=== PATIENT | male | born 1985 | race Caucasian/White ===

== ENCOUNTER 2020-06-08 00:18 | Inpatient (IN) | payer MEDICARE, MEDICAID ==
[~2020-06-08] VITALS: Ht 183 cm; Wt 175.0 kg
--- NOTE | 2020-06-08 00:21 | NUR ---
RESPIRITORY THERAPY CALLED TO ROOM. 0025 VAPOTHERM ORDERED
[2020-06-08] MEDS ORDERED: MONT10TA97 PO (00:40)
[2020-06-08] MEDS ORDERED: DULA0.75 SQ (00:40)
[2020-06-08] MEDS ORDERED: PIOG30TA71 PO (00:40)
[2020-06-08] MEDS ORDERED: ROSU20TA32 PO (00:40)
[2020-06-08] MEDS ORDERED: DULO60CA59 PO (00:40)
[2020-06-08] MEDS ORDERED: HYDR50TA3 PO (00:40)
[2020-06-08] MEDS ORDERED: BREX0.5T PO (00:40)
[2020-06-08] MEDS ORDERED: AZITHROMYCIN (00:40)
[2020-06-08] MEDS ORDERED: GEMF600T8 PO (00:40)
[2020-06-08] MEDS ORDERED: METO50TA15 PO (00:40)
[2020-06-08] MEDS ORDERED: ALBUTEROL (00:40)
[2020-06-08] MEDS ORDERED: NS IV 1000 ML 1,000 ML IV STA (00:45)
--- NOTE | 2020-06-08 00:54 | ED Respiratory ---
General Chief Complaint: Respiratory Problems Stated Complaint: COVID+,SOB Nursing Triage Note: brought in by [facility] increased soa, low spo2. dx covid + 06/03/20 History of Present Illness Date Seen by Provider: Jun 08, 2020 Time Seen by Provider: 00:30 Initial Comments Patient is a 34-year-old male who presents to the emergency department today with a chief complaint of shortness of breath. Patient states that he was diagnosed with coronavirus on June 03. He started having symptoms about 3 days prior. Complaints of a change in taste but not loss of taste. Patient states that today he just became more short of breath with persistent cough and decided to call the ambulance. EMS reports that the patient's oxygen saturations were 75% on room air on their arrival. Patient also endorses fever, chills and body aches. He denies nausea, upset stomach or diarrhea. No problems with urination. Patient states that he has been taking antibiotics but no steroids. He does have a history of hypertension, hyperlipidemia and diabetes and depression. He is a non-smoker. All other review of systems reviewed and negative except as stated. Timing/Duration: this evening Severity: severe Prior Episodes/Possible Cause: illness exposure Modifying Factors: Improves With Albuterol Inhaler Associated Symptoms: cough, shortness of breath Allergies and Home Medications Allergies Coded Allergies: No Known Drug Allergies (Unverified , 06/08/20) Home Medications Acetaminophen 500 Mg Tablet, 1,000 MG PO Q8H PRN for PAIN-MILD (1-4) OR TEMPATURE, (Reported) Albuterol Sulfate 6.7 Gm Hfa.aer.ad, 2 PUFF INH Q4H PRN for SHORTNESS OF BREATH, (Reported) Azithromycin 250 Mg Tablet, 250 MG PO DAILY, (Reported) FILLED 06-03-2120 #6/5 DAY SUPPLY Brexpiprazole 0.5 Mg Tablet, 0.5 MG PO DAILY, (Reported) Canagliflozin/Metformin HCl 1 Each Tab.bp.24h, 2 EACH PO DAILY, (Reported) Dulaglutide 0.75 Mg/0.5 Ml Pen.injctr, 0.75 MG SQ FRI, (Reported) Duloxetine HCl 60 Mg Capsule.dr, 120 MG PO DAILY, (Reported) TAKES 2 (60MG) CAPS Gemfibrozil 600 Mg Tablet, 600 MG PO BID, (Reported) Hydrochlorothiazide 50 Mg Tablet, 50 MG PO DAILY, (Reported) Metoprolol Tartrate 50 Mg Tablet, 50 MG PO BID, (Reported) Montelukast Sodium 10 Mg Tablet, 10 MG PO DAILY, (Reported) Multivitamin 1 Each Tablet, 1 EACH PO DAILY, (Reported) Pioglitazone HCl 30 Mg Tablet, 30 MG PO DAILY, (Reported) Rosuvastatin Calcium 20 Mg Tablet, 20 MG PO DAILY, (Reported) Patient Home Medication List Home Medication List Reviewed: Yes Review of Systems Review of Systems Constitutional: see HPI EENTM: no symptoms reported Respiratory: cough, short of breath Cardiovascular: no symptoms reported Gastrointestinal: no symptoms reported Genitourinary: no symptoms reported Musculoskeletal: no symptoms reported Skin: no symptoms reported Psychiatric/Neurological: No Symptoms Reported Hematologic/Lymphatic: No Symptoms Reported Past Dllxgfw-Evunsk-Tsxkgv Hx Patient Social History Alcohol Use: Denies Use Recreational Drug Use: No Smoking Status: Never a Smoker 2nd Hand Smoke Exposure: No Recent Foreign Travel: No Contact w/Someone Who Travel: No Recent Infectious Disease Expo: No Recent Hopitalizations: No Immunizations Up To Date Tetanus Booster (TDap): Unknown Seasonal Allergies Seasonal Allergies: No Past Medical History Surgeries: Yes (dental) Respiratory: No Cardiac: Yes High Cholesterol, Hypertension Neurological: No Genitourinary: No Gastrointestinal: No Musculoskeletal: No Endocrine: Yes Diabetes, Insulin dep HEENT: No Cancer: No Psychosocial: Yes Depression Integumentary: No Blood Disorders: No Physical Exam Vital Signs - First Documented 06/08/20 06/08/20 00:25 00:37 Temp 38.1 Pulse 116 Resp 18 B/P (MAP) 134/82 (99) Pulse Ox 90 O2 Delivery Non Rebreather O2 Flow Rate 15.00 FiO2 75 Capillary Refill : Less Than 3 Seconds Height: 6'0.00" Weight: 360lbs. 0.0oz. 163.642782xe; 47.00 BMI Method: General Appearance: WD/WN, no apparent distress Eyes: Bilateral Eye Normal Inspection, Bilateral Eye PERRL, Bilateral Eye EOMI HEENT: normal ENT inspection, pharynx normal Neck: full range of motion, supple Respiratory: lungs clear, normal breath sounds, no accessory muscle use, other (Tachypnea) Cardiovascular: regular rate, rhythm, no murmur, tachycardia Gastrointestinal: normal bowel sounds, non tender, soft Focused Exam Lactate Level 06/08/20 00:30: Lactic Acid Level 2.87*H Lactic Acid Level Laboratory Tests Test 06/08/20 00:30 Lactic Acid Level 2.87 MMOL/L (0.50-2.00) *H Progress/Results/Core Measures Suspected Sepsis Recent Fever Within 48 Hours: Yes Infection Criteria Present: Documented Infection New/Unexplained Altered Menta: No Sepsis Screen: Possible Sepsis Risk Within 3hrs of presentation: Admin fluids, Blood cultures prior to ABX's, Lactate level SIRS Temperature: Pulse: 116 Respiratory Rate: 18 Blood Pressure 134 /82 Mean: 99 06/08/20 00:30: Lactic Acid Level 2.87*H Laboratory Tests 06/08/20 00:30: Total Bilirubin 0.7 Results/Orders Lab Results Laboratory Tests Test 06/08/20 00:30 06/08/20 01:00 Range/Units White Blood Count 11.0 4.3-11.0 10^3/uL Red Blood Count 5.38 4.30-5.52 10^6/uL Hemoglobin 15.4 13.3-17.7 g/dL Hematocrit 44 40-54 % Mean Corpuscular Volume 81 80-99 fL Mean Corpuscular Hemoglobin 29 25-34 pg Mean Corpuscular Hemoglobin Concent 35 32-36 g/dL Red Cell Distribution Width 12.7 10.0-14.5 % Platelet Count 218 130-400 10^3/uL Mean Platelet Volume 9.9 9.0-12.2 fL Immature Granulocyte % (Auto) 1 % Neutrophils (%) (Auto) 84 H 42-75 % Lymphocytes (%) (Auto) 10 L 12-44 % Monocytes (%) (Auto) 5 0-12 % Eosinophils (%) (Auto) 0 0-10 % Basophils (%) (Auto) 0 0-10 % Neutrophils # (Auto) 9.2 H 1.8-7.8 10^3/uL Lymphocytes # (Auto) 1.1 1.0-4.0 10^3/uL Monocytes # (Auto) 0.6 0.0-1.0 10^3/uL Eosinophils # (Auto) 0.0 0.0-0.3 10^3/uL Basophils # (Auto) 0.0 0.0-0.1 10^3/uL Immature Granulocyte # (Auto) 0.1 0.0-0.1 10^3/uL D-Dimer 1.10 H 0.00-0.49 UG/ML Sodium Level 130 L 135-145 MMOL/L Potassium Level 3.3 L 3.6-5.0 MMOL/L Chloride Level 88 L 98-107 MMOL/L Carbon Dioxide Level 18 L 21-32 MMOL/L Anion Gap 24 H 5-14 MMOL/L Blood Urea Nitrogen 12 7-18 MG/DL Creatinine 0.83 0.60-1.30 MG/DL Estimat Glomerular Filtration Rate > 60 BUN/Creatinine Ratio 14 Glucose Level 141 H 70-105 MG/DL Lactic Acid Level 2.87 *H 0.50-2.00 MMOL/L Calcium Level 8.7 8.5-10.1 MG/DL Corrected Calcium 9.0 8.5-10.1 MG/DL Total Bilirubin 0.7 0.1-1.0 MG/DL Aspartate Amino Transf (AST/SGOT) 71 H 5-34 U/L Alanine Aminotransferase (ALT/SGPT) 36 0-55 U/L Alkaline Phosphatase 70 40-136 U/L C-Reactive Protein High Sensitivity 23.54 H 0.00-0.50 MG/DL Total Protein 7.6 6.4-8.2 GM/DL Albumin 3.6 3.2-4.5 GM/DL Procalcitonin 0.10 H <0.10 NG/ML Blood Gas Puncture Site RR Blood Gas Patient Temperature 100.4 Arterial Blood pH 7.50 H 7.37-7.43 Arterial Blood Partial Pressure CO2 35 35-45 MMHG Arterial Blood Partial Pressure O2 97 H 79-93 MMHG Arterial Blood HCO3 27 23-27 MMOL/L Arterial Blood Total CO2 27.7 21.0-31.0 MMOL/L Arterial Blood Oxygen Saturation 98 94-100 % Arterial Blood Base Excess 3.8 H -2.5-2.5 MMOL/L Reyes Test YES-POS Blood Gas Ventilator Setting NO Blood Gas Inspired Oxygen 40% Micro Results Microbiology 06/08/20 Blood Culture - Preliminary, Resulted No growth 06/08/20 Blood Culture - Preliminary, Resulted No growth My Orders Orders - SYEDA GUEVARA MD Ed Iv/Invasive Line Start (06/08/20 00:40) Chest 1 View, Ap/Pa Only (06/08/20 00:40) Cbc With Automated Diff (06/08/20 00:40) Comprehensive Metabolic Panel (06/08/20 00:40) Fibrin Degradation Products (06/08/20 00:40) Hs C Reactive Protein (06/08/20 00:40) Procalcitonin (Pct) (06/08/20 00:40) Blood Culture (06/08/20 00:40) Lactic Acid Analyzer (06/08/20 00:40) Ed Iv/Invasive Line Start (06/08/20 00:45) Ns Iv 1000 Ml (Sodium Chloride 0.9%) (06/08/20 00:45) Vapotherm - Admin Rt Rfs (06/08/20 00:45) Arterial Blood Gas (06/08/20 01:03) Dexamethasone Injection (Decadron Inje (06/08/20 01:21) Vital Signs/I&O 06/08/20 06/08/20 00:25 00:37 Temp 38.1 Pulse 116 Resp 18 B/P (MAP) 134/82 (99) Pulse Ox 90 92 O2 Delivery Non Rebreather Vapotherm O2 Flow Rate 15.00 40.00 FiO2 75 Capillary Refill : Less Than 3 Seconds Blood Pressure Mean: 99 Progress Note : Time: 01:55 Progress Note I have reevaluated the patient. He is breathing more comfortably on Vapotherm. He is satting 100% at the moment on 40 L at 75%. His respiratory rate is about 22. He is still a little bit tachycardic with a heart rate of 112. Blood pressure is good. Patient's labs have been reviewed. He does have a mildly elevated lactic acid of 2.87. His CRP is elevated his procalcitonin is 0.1. Patient has a normal white count. His electrolytes are mostly within normal limits with a slightly low potassium at 3.3. Patient's chest x-ray is reviewed and shows diffuse patchy bilateral infiltrates consistent with coronavirus pneumonia. Patient has been given IV Decadron 6 mg here in the emergency department. Will be admitted with orders for convalescent plasma. Case has been discussed with Dr. Perez at this time. She accepts the patient for inpatient admission. Diagnostic Imaging Diagonstic Imaging: Xray Plain Films/CT/US/NM/MRI: chest Comments Bilateral infiltrates on chest x-ray Critical Care Note Critical Care Start Time: 00:30 Stop Time: 01:58 Total Time (minutes) Critical care time 40 minutes in the evaluation and management of this patient with coronavirus pneumonia and hypoxemia. Patient management of hypoxia with Vapotherm. Multiple reevaluations. Review of the medical record. Interpretation and management of laboratory studies. Discussion with admitting physician. Departure Communication (Admissions) Time/Spoke to Admitting Phy: 01:[address] Perez who accepts the patient for inpatient admission Impression Primary Impression: Pneumonia due to 2019 novel coronavirus Additional Impression: Hypoxia Disposition: ADMITTED INPATIENT Condition: Stable Admissions Decision to Admit Reason: Admit from ER (General) Decision to Admit/Date: Jun 08, 2020 Time/Decision to Admit Time: 01:57 Departure-Patient Inst. Referrals: JOÃO CHRISTOPHER DO (PCP) Primary Care Physician RONNA DEGROOT (Family) Primary Care Physician Copy Copies To 1: JOÃO CHRISTOPHER KATHRYN M MD Jun 08, 2020 00:54
[2020-06-08 00:55] LABS: BASOPHILS % (AUTO) 0 % (0-10); EOSINOPHILS % (AUTO) 0 % (0-10); HEMATOCRIT 44 % (40-54); HEMOGLOBIN 15.4 g/dL (13.3-17.7); LYMPHOCYTES # (AUTO) 1.1 10^3/uL (1.0-4.0); LYMPHOCYTES % (AUTO) 10 % (12-44); MEAN CORPUSCULAR HEMOGLOBIN 29 pg (25-34); MEAN CORPUSCULAR HGB CONC 35 g/dL (32-36); MEAN CORPUSCULAR VOLUME 81 fL (80-99); MEAN PLATELET VOLUME 9.9 fL (9.0-12.2); MONOCYTES # (AUTO) 0.6 10^3/uL (0.0-1.0); MONOCYTES % (AUTO) 5 % (0-12); NEUTROPHILS # (AUTO) 9.2 10^3/uL (1.8-7.8); NEUTROPHILS % (AUTO) 84 % (42-75); PLATELET COUNT 218 10^3/uL (130-400)
[2020-06-08 00:59] LABS: ALBUMIN 3.6 GM/DL (3.2-4.5); CHLORIDE 88 MMOL/L (98-107); POTASSIUM 3.3 MMOL/L (3.6-5.0); SODIUM 130 MMOL/L (135-145)
[2020-06-08 01:00] LABS: CALCIUM 8.7 MG/DL (8.5-10.1)
[2020-06-08 01:01] LABS: GLUCOSE 141 MG/DL (70-105); TOTAL PROTEIN 7.6 GM/DL (6.4-8.2)
[2020-06-08 01:02] LABS: CARBON DIOXIDE 18 MMOL/L (21-32)
[2020-06-08 01:03] LABS: BILIRUBIN,TOTAL 0.7 MG/DL (0.1-1.0)
[2020-06-08 01:05] LABS: ALKALINE PHOSPHATASE 70 U/L (40-136); CREATININE SERUM 0.83 MG/DL (0.60-1.30); GFR ESTIMATED > 60
[2020-06-08 01:06] LABS: BUN/CREATININE RATIO 14
[2020-06-08 01:08] LABS: ALANINE AMINOTRANSFERASE 36 U/L (0-55)
[2020-06-08 01:14] LABS: ABG BASE EXCESS 3.8 MMOL/L (-2.5-2.5); ABG OXYGEN SATURATION 98 % (94-100); ABG PCO2 35 MMHG (35-45); ABG PO2 97 MMHG (79-93); ABG TCO2 27.7 MMOL/L (21.0-31.0)
[2020-06-08 01:15] LABS: ALLENS TEST YES-POS; INSPIRED O2 40%; PATIENT TEMP 100.4; VENTILATOR NO
--- NOTE | 2020-06-08 04:04 | NUR ---
JESSE JON admitted to room CU9-1, with an admitting diagnosis of COVID,Pneumonia, on 06/08/20 from [facility] ED via stretcher, accompanied by Staff.JESSE JON introduced to surroundings, call light, bed controls, phone, TV, temperature control, lights, meal times, smoking policy, visitor policy, side rail policy, bathrooms and showers. Patient Rights given to patient in the handbook. JESSE JON verbalizes understanding that [facility] is not responsible for the loss or damage to any personal effects or valuables that are kept in the patients possession during their hospitalization. The following Patient Care Plans were discussed with the patient: Discharge Planning, pain,activity, and room orienation. JESSE JON verbalizes understanding of Interdisciplinary Patient Education. Patient and/or family were informed about the Rapid Response Team and its purpose.
--- NOTE | 2020-06-08 04:56 | Pulmonary Consultation ---
History of Present Illness History of Present Illness Date Seen by Provider: Jun 08, 2020 Time Seen by Provider: 04:51 Date of Admission History of Present Illness 34yo with hx of morbid obesity, DM, HTN presented to ED seocondary to worsening SOB. Pt was dx with COVID 1/2 . Symptoms started 3 days prior to admission. Pt was found to be hypoxic per EMS. Pt was admitted to ICU for critical care tx. He does not smoke. No prior hx like this in the past. I am consulted for ICU management. Allergies and Home Medications Allergies Coded Allergies: No Known Drug Allergies (Unverified , 06/08/20) Home Medications Acetaminophen 500 Mg Tablet, 1,000 MG PO Q8H PRN for PAIN-MILD (1-4) OR TEMPATURE, (Reported) Albuterol Sulfate 6.7 Gm Hfa.aer.ad, 2 PUFF INH Q4H PRN for SHORTNESS OF BREATH, (Reported) Azithromycin 250 Mg Tablet, 250 MG PO DAILY, (Reported) FILLED 06-03-2120 #6/5 DAY SUPPLY Brexpiprazole 0.5 Mg Tablet, 0.5 MG PO DAILY, (Reported) Canagliflozin/Metformin HCl 1 Each Tab.bp.24h, 2 EACH PO DAILY, (Reported) Dulaglutide 0.75 Mg/0.5 Ml Pen.injctr, 0.75 MG SQ FRI, (Reported) Duloxetine HCl 60 Mg Capsule.dr, 120 MG PO DAILY, (Reported) TAKES 2 (60MG) CAPS Gemfibrozil 600 Mg Tablet, 600 MG PO BID, (Reported) Hydrochlorothiazide 50 Mg Tablet, 50 MG PO DAILY, (Reported) Metoprolol Tartrate 50 Mg Tablet, 50 MG PO BID, (Reported) Montelukast Sodium 10 Mg Tablet, 10 MG PO DAILY, (Reported) Multivitamin 1 Each Tablet, 1 EACH PO DAILY, (Reported) Pioglitazone HCl 30 Mg Tablet, 30 MG PO DAILY, (Reported) Rosuvastatin Calcium 20 Mg Tablet, 20 MG PO DAILY, (Reported) Past Sxoiiyl-Vjkpcz-Leycjp Hx Patient Social History Alcohol Use: Denies Use Recreational Drug Use: No Smoking Status: Never a Smoker 2nd Hand Smoke Exposure: No Recent Foreign Travel: No Contact w/Someone Who Travel: No Recent Infectious Disease Expo: No Recent Hopitalizations: No Physical Abuse: No Sexual Abuse: No Mistreated: No Fear: No Immunizations Up To Date Tetanus Booster (TDap): Unknown Date of Influenza Vaccine: Mar 23, 2020 Seasonal Allergies Seasonal Allergies: No Past Medical History Surgeries: Yes (dental) Respiratory: No Cardiac: Yes High Cholesterol, Hypertension Neurological: No Genitourinary: No Gastrointestinal: No Musculoskeletal: No Endocrine: Yes Diabetes, Insulin dep HEENT: No Cancer: No Psychosocial: Yes Depression Integumentary: No Blood Disorders: No Review of Systems Time Seen by Provider: 05:00 Sepsis Event Evaluation Height, Weight, BMI Height: 6'0.00" Weight: 360lbs. 0.0oz. 163.211765sg; 46.28 BMI Method: Exam Exam Vital Signs Date Time Temp Pulse Resp B/P (MAP) Pulse Ox O2 Delivery O2 Flow Rate FiO2 06/08/20 04:29 Vapotherm 40.00 75 06/08/20 04:11 38.4 107 16 133/94 (107) 94 Vapotherm 40.00 75.00 06/08/20 03:51 116 18 134/82 (99) 90 Vapotherm 40.00 06/08/20 00:25 38.1 116 18 134/82 (99) 90 Non Rebreather 15.00 I & O 06/08/20 07:00 Intake Total 1000 ml Balance 1000 ml Height & Weight Height: 6'0.00" Weight: 360lbs. 0.0oz. 163.916481ng; 46.28 BMI Method: General Appearance: Anxious, Moderate Distress, Obese HEENT: PERRL/EOMI, Pharynx Normal Neck: Full Range of Motion, Supple Respiratory: Accessory Muscle Use, Crackles, Decreased Breath Sounds Cardiovascular: Regular Rate, Rhythm Capillary Refill: Less Than 3 Seconds Gastrointestinal: normal bowel sounds, non tender, soft Extremity: Normal Capillary Refill, Normal Inspection Neurologic/Psychiatric: Alert Skin: Normal Color Lymphatic: No Adenopathy Results Lab Laboratory Tests 06/08/20 00:30 Assessment/Plan Assessment/Plan COVID with pneumonia -oxygen Vapotherm 75% -Decadron -CVP -Proning -callejas cultures pending -Check UA -Pt does not qualify for Remdesivir Acute DKA -Start DKA protocol Hypokalemia, hypophos -Replace -monitor Hyponatremia -monitor NAT BRIGHT DO Jun 08, 2020 04:56
[2020-06-08] MEDS ORDERED: LACTATED RINGERS 1,000 ML IV SCH ×2 (05:00→19:00)
[2020-06-08] MEDS ORDERED: FAMOTIDINE 20 MG (PEPCID) TABLET PO PRN (05:00)
[2020-06-08] MEDS ORDERED: NS (IVPB) 100 ML ONE (05:11)
[2020-06-08] MEDS ORDERED: PIPERACILLIN/TAZO 4.5 GM VIAL (ZOSYN) IV ONE (05:11)
[2020-06-08] MEDS ORDERED: PIPERACILLIN/TAZOBACTAM 4.5 GM in NS (IVPB) 100 ML IV ONE (05:15)
[2020-06-08] MEDS: POTASSIUM CL 10MEQ/50ML IVPB 50 ML IV SCH ×2 (05:28→15:47)
[2020-06-08] MEDS: dexAMETHasone 6 MG TAB (DECADRON) PO SCH (05:28)
[2020-06-08] MEDS: KCL 20 MEQ TAB (K-DUR) PO SCH (05:28)
[2020-06-08] MEDS: MAGNESIUM 1 GM/100 ML IVPB 100 ML IV SCH (05:28)
[2020-06-08] MEDS: IBUPROFEN TABLET 200 MG TAB PO PRN (05:40)
[2020-06-08 05:56] LABS: BASOPHILS % (AUTO) 0 % (0-10); EOSINOPHILS % (AUTO) 0 % (0-10); HEMATOCRIT 40 % (40-54); HEMOGLOBIN 14.1 g/dL (13.3-17.7); LYMPHOCYTES # (AUTO) 0.6 10^3/uL (1.0-4.0); LYMPHOCYTES % (AUTO) 5 % (12-44); MEAN CORPUSCULAR HEMOGLOBIN 29 pg (25-34); MEAN CORPUSCULAR HGB CONC 36 g/dL (32-36); MEAN CORPUSCULAR VOLUME 81 fL (80-99); MEAN PLATELET VOLUME 9.6 fL (9.0-12.2); MONOCYTES # (AUTO) 0.5 10^3/uL (0.0-1.0); MONOCYTES % (AUTO) 5 % (0-12); NEUTROPHILS # (AUTO) 9.5 10^3/uL (1.8-7.8); NEUTROPHILS % (AUTO) 89 % (42-75); PLATELET COUNT 205 10^3/uL (130-400); WHITE BLOOD COUNT 10.6 10^3/uL (4.3-11.0)
[2020-06-08 06:00] LABS: ALBUMIN 3.4 GM/DL (3.2-4.5); CHLORIDE 89 MMOL/L (98-107); POTASSIUM 2.9 MMOL/L (3.6-5.0); SODIUM 129 MMOL/L (135-145)
[2020-06-08 06:02] LABS: CALCIUM 8.1 MG/DL (8.5-10.1)
[2020-06-08 06:03] LABS: GLUCOSE 156 MG/DL (70-105); TOTAL PROTEIN 6.7 GM/DL (6.4-8.2)
[2020-06-08 06:04] LABS: CARBON DIOXIDE 19 MMOL/L (21-32)
[2020-06-08 06:05] LABS: BILIRUBIN,TOTAL 0.7 MG/DL (0.1-1.0)
[2020-06-08 06:07] LABS: ALKALINE PHOSPHATASE 63 U/L (40-136); GFR ESTIMATED > 60
[2020-06-08 06:08] LABS: BUN/CREATININE RATIO 14
[2020-06-08 06:09] LABS: SALICYLATE < 5.0 MG/DL (5.0-20.0)
[2020-06-08 06:10] LABS: ALANINE AMINOTRANSFERASE 32 U/L (0-55); MAGNESIUM 2.1 MG/DL (1.6-2.4)
[2020-06-08 06:23] LABS: PROTHROMBIN TIME PATIENT 13.5 SEC (12.2-14.7)
[2020-06-08 06:24] LABS: BAND NEUTROPHILS 2 %; BASOPHILS % (MANUAL) 0 %; EOSINOPHILS % (MANUAL) 0 %; LYMPHOCYTES % (MANUAL) 8 %; MONOCYTES % (MANUAL) 6 %; NEUTROPHILS % (MANUAL) 84 %; RBC MORPH NORMAL
[2020-06-08 06:26] LABS: ACETAMINOPHEN < 10 UG/ML (10-30)
[2020-06-08] MEDS: inSUlin ASPART (NovoLOG) 1 UNIT/0.01 ML (CHARGE PER UNIT) SC SCH ×4 (07:18→20:00)
--- NOTE | 2020-06-08 07:20 | Diagnostic Imaging Report ---
EXAMINATION: Chest 1 view HISTORY: Shortness of breath. COVID positive. COMPARISON: None available. FINDINGS: Patchy opacities are seen throughout the mid and lower lungs bilaterally. No large pleural effusion or pneumothorax is seen. The cardiomediastinal silhouette is normal in size and contour. No acute osseous abnormality is seen. IMPRESSION: 1. Patchy opacities in the mid and lower lungs bilaterally, consistent with history of COVID infection. Dictated by: Dictated on workstation # [id number]
[2020-06-08] MEDS ORDERED: KCL 20 MEQ TAB (K-DUR) PO ONE (08:00)
[2020-06-08] MEDS: FAMOTIDINE 20 MG (PEPCID) TABLET PO SCH ×2 (08:09→20:01)
[2020-06-08] MEDS: ENOXAPARIN 40 MG/0.4 ML (LOVENOX) SYR SC SCH ×2 (08:09→20:00)
[2020-06-08 08:11] LABS: CLARITY,URINE CLEAR; COLOR,URINE DARK YELLOW; GLUCOSE, URINE (UA) 2+ (NEGATIVE); KETONES,URINE 3+ (NEGATIVE); LEUKOCYTE ESTERASE ,URINE NEGATIVE (NEGATIVE); NITRITE,URINE NEGATIVE (NEGATIVE); PH,URINE 6.5 (5-9); PROTEIN,URINE 2+ (NEGATIVE)
[2020-06-08 08:20] LABS: BACTERIA,URINE TRACE /HPF; BILIRUBIN,URINE 1+ (NEGATIVE); RBC,URINE 0-2 /HPF
[2020-06-08] MEDS ORDERED: POTASSIUM PHOSPHATE INJ 30 MM in NS (IVPB) 250 ML IV ONE (09:00)
[2020-06-08 09:54] VITALS: BP 134/82
[2020-06-08 10:27] VITALS: BP 134/82
--- NOTE | 2020-06-08 11:41 | NUR ---
DR BRIGHT CALLED NEW ORDERS RECEIVED, SEE ORDER HX
[2020-06-08] MEDS ORDERED: KCL 20 MEQ TAB (K-DUR) PO NR ×2 (11:45→17:30)
[2020-06-08] MEDS: PIPERACILLIN/TAZOBACTAM (BULK) 4.5 GM in NS (IVPB) 100 ML IV SCH ×2 (12:06→20:09)
[2020-06-08] MEDS ORDERED: AZIT250T12 PO (12:13)
[2020-06-08] MEDS ORDERED: RT-ALBUINH INH (12:13)
[2020-06-08] MEDS ORDERED: CANA1TAB8 PO (12:13)
[2020-06-08] MEDS ORDERED: ACET-2267 PO (12:13)
[2020-06-08] MEDS ORDERED: MULT-1136 PO (12:13)
--- NOTE | 2020-06-08 12:16 | NUR ---
SPOKE WITH THE PT (CALLED THE ROOM PHONE), WENT THRU THE EXT MED HISTORY, AND CALLED [facility] TO COMPLETE THE MED REC ON 05-01-2020 [facility] FILLED INVOKAMET XR 150/1000MG #60/30DS AND ROSUVASTATIN 20MG #30/30DS- THESE ARE NOT SHOWN ON THE EXT MED HISTORY WHEN I CALLED THE PT HE WAS NOT ABLE TO NAME HIS MEDICATIONS, BUT WHEN I LISTED MEDS FROM THE EXT MED HISTORY HE WAS ABLE TO TELL ME HOW/WHEN HE TAKES EACH (THIS IS ALSO WHEN THE PT MENTIONED INVOKAMET), OTC MEDS: TYLENOL MTV
[2020-06-08 12:51] LABS: BUN/CREATININE RATIO 19; CALCIUM 8.3 MG/DL (8.5-10.1); CARBON DIOXIDE 26 MMOL/L (21-32); CHLORIDE 93 MMOL/L (98-107); CREATININE SERUM 0.72 MG/DL (0.60-1.30); GFR ESTIMATED > 60; GLUCOSE 169 MG/DL (70-105); MAGNESIUM 2.6 MG/DL (1.6-2.4); PHOSPHORUS 3.3 MG/DL (2.3-4.7); POTASSIUM 3.4 MMOL/L (3.6-5.0); SODIUM 134 MMOL/L (135-145)
[2020-06-08 13:21] LABS: AMPHETAMINE SCREEN, URINE NEGATIVE (NEGATIVE); BARBITURATE SCREEN URINE NEGATIVE (NEGATIVE); BENZODIAZEPINES SCREEN URINE NEGATIVE (NEGATIVE); CANNABINOID SCREEN, URINE NEGATIVE (NEGATIVE); COCAINE SCREEN URINE NEGATIVE (NEGATIVE); METHADONE STAT NEGATIVE (NEGATIVE); METHAMPHETAMINE SCREEN URINE S NEGATIVE (NEGATIVE); OPIATE SCREEN URINE NEGATIVE (NEGATIVE); OXYCODONE STAT NEGATIVE (NEGATIVE); PROPOXYPHENE STAT NEGATIVE (NEGATIVE); TRICYCLIC ANTIDEPRESSANTS SCRE NEGATIVE (NEGATIVE)
[2020-06-08] MEDS: [UNRECOGNIZED DRUG - MIXTURE] IV SCH ×4 (13:25→17:44)
[2020-06-08] MEDS ORDERED: NS IV 500 ML 500 ML ONE (13:51)
[2020-06-08] MEDS: RT-ALBUTEROL INHALER HFA (VENTOLIN HFA) 18 GM IH SCH ×3 (14:38→21:38)
--- NOTE | 2020-06-08 15:03 | NUR ---
1130 UPDATED MOM ON PT. PASSWORD VERIFIED.
[2020-06-08 16:09] LABS: CHLORIDE 95 MMOL/L (98-107); POTASSIUM 3.4 MMOL/L (3.6-5.0); SODIUM 134 MMOL/L (135-145)
[2020-06-08 16:10] LABS: CALCIUM 8.1 MG/DL (8.5-10.1)
[2020-06-08 16:11] LABS: GLUCOSE 200 MG/DL (70-105)
[2020-06-08 16:12] LABS: CARBON DIOXIDE 25 MMOL/L (21-32)
[2020-06-08 16:15] LABS: BUN/CREATININE RATIO 18; CREATININE SERUM 0.72 MG/DL (0.60-1.30); GFR ESTIMATED > 60
--- NOTE | 2020-06-08 16:51 | NUR ---
DR BRIGHT NOTIFIED OF LATEST LAB RESULTS, ORDERS RECEIVED TO GIVE 10 UNITS LEVEMIR AND D/C INSULIN DRIP 2 HOURS P LEVEMIR. CHANGE IVF TO LR AT 75ML/HR AFTER D/C INSULIN DRIP.
--- NOTE | 2020-06-08 17:01 | NUR ---
CM/SS: Visited with mother of pt via phone as per social service consult - based on concerns she has for services for pt at time of discharge. Plan: Undetermined at this time. Pt lives alone in an apartment locally and will likely return there at the conclusion of his hospital stay. Summary: Mother reports pt is autistic higher functioning. He has disability and is on Medicare and Medicaid. She just reports he has alot of on line relationships, and but not many friends . Pt does not like change and he does receive services at the clinic. She has asked this worker to follow up and see if there are other things he could benefit from. This worker will follow up.
--- NOTE | 2020-06-08 17:13 | NUR ---
CM/SS: Visit with pt (via phone due to COVID +) as per Social Service Consult related to concerns for services from mother at time of discharge. Plan: Pt is from home and lives alone and will likely return there. Summary: Pt reports doing ok and could not identify any additional services needed at this time. This worker introduced herself to pt, and will follow up with him closer to the time of discharge. Pt was ok with that. This worker will follow up.
[2020-06-08 17:17] VITALS: BP 116/86
[2020-06-08] MEDS: POTASSIUM CHLORIDE INJ 20 MEQ in D5 LR IV SOLUTION 1,000 ML IV SCH (19:30)
[2020-06-09] MEDS: inSUlin ASPART (NovoLOG) 1 UNIT/0.01 ML (CHARGE PER UNIT) SC SCH ×7 (00:11→23:04)
[2020-06-09] MEDS: RT-ALBUTEROL INHALER HFA (VENTOLIN HFA) 18 GM IH SCH ×6 (01:04→21:53)
[2020-06-09] MEDS: PIPERACILLIN/TAZOBACTAM (BULK) 4.5 GM in NS (IVPB) 100 ML IV SCH ×3 (02:34→19:17)
[2020-06-09 02:56] LABS: BASOPHILS % (AUTO) 0 % (0-10); EOSINOPHILS % (AUTO) 0 % (0-10); HEMATOCRIT 34 % (40-54); HEMOGLOBIN 11.9 g/dL (13.3-17.7); LYMPHOCYTES # (AUTO) 1.1 10^3/uL (1.0-4.0); LYMPHOCYTES % (AUTO) 9 % (12-44); MEAN CORPUSCULAR HEMOGLOBIN 29 pg (25-34); MEAN CORPUSCULAR HGB CONC 35 g/dL (32-36); MEAN CORPUSCULAR VOLUME 83 fL (80-99); MEAN PLATELET VOLUME 9.4 fL (9.0-12.2); MONOCYTES # (AUTO) 0.6 10^3/uL (0.0-1.0); MONOCYTES % (AUTO) 5 % (0-12); NEUTROPHILS # (AUTO) 10.1 10^3/uL (1.8-7.8); NEUTROPHILS % (AUTO) 84 % (42-75); PLATELET COUNT 235 10^3/uL (130-400); WHITE BLOOD COUNT 11.9 10^3/uL (4.3-11.0)
[2020-06-09 03:05] LABS: CHLORIDE 101 MMOL/L (98-107); POTASSIUM 3.3 MMOL/L (3.6-5.0); SODIUM 137 MMOL/L (135-145)
[2020-06-09 03:06] LABS: CALCIUM 7.6 MG/DL (8.5-10.1)
[2020-06-09 03:07] LABS: GLUCOSE 118 MG/DL (70-105)
[2020-06-09 03:08] LABS: CARBON DIOXIDE 21 MMOL/L (21-32)
[2020-06-09 03:10] LABS: CREATININE SERUM 0.58 MG/DL (0.60-1.30); GFR ESTIMATED > 60
[2020-06-09 03:11] LABS: BUN/CREATININE RATIO 14
[2020-06-09 03:13] LABS: MAGNESIUM 1.8 MG/DL (1.6-2.4)
[2020-06-09 03:25] LABS: PHOSPHORUS 0.7 MG/DL (2.3-4.7)
[2020-06-09] MEDS: POTASSIUM CHLORIDE INJ 20 MEQ in D5 LR IV SOLUTION 1,000 ML IV SCH (04:25)
--- NOTE | 2020-06-09 04:25 | Diagnostic Imaging Report ---
Indication: Shortness of breath Portable chest 2:21 AM There are patchy consolidating infiltrates scattered throughout both lungs. Right upper extremity PICC line tip projects over the SVC. There are no effusions or pneumothoraces. IMPRESSION: Patchy consolidating alveolar infiltrates in both lungs appear worse compared to the previous day's exam. Dictated by: Dictated on workstation # [id number]
--- NOTE | 2020-06-09 04:46 | Pulmonary Progress Note ---
Subjective Time Seen by a Provider: 04:46 Sepsis Event Evaluation Height, Weight, BMI Height: 6'0.00" Weight: 360lbs. 0.0oz. 163.010580bl; 46.28 BMI Method: Focused Exam Lactate Level 06/08/20 00:30: Lactic Acid Level 2.87*H 06/08/20 02:55: Lactic Acid Level 1.56 06/08/20 05:28: Lactic Acid Level 1.14 Exam Exam Vital Signs Date Time Temp Pulse Resp B/P (MAP) Pulse Ox O2 Delivery O2 Flow Rate FiO2 06/09/20 01:04 Vapotherm 40.00 70 06/09/20 01:00 109 23 106/63 (77) 90 Vapotherm 40.00 80.00 06/09/20 00:50 95 06/09/20 00:00 112 24 94 Vapotherm 40.00 80.00 06/08/20 23:32 37.1 06/08/20 23:00 111 28 95 Vapotherm 40.00 80.00 06/08/20 22:00 117 15 87 Vapotherm 40.00 80.00 06/08/20 21:38 Vapotherm 40.00 80 06/08/20 21:34 37.2 98 24 92 Vapotherm 40.00 80.00 06/08/20 21:00 112 24 124/75 (91) 88 Vapotherm 40.00 75.00 06/08/20 20:05 Vapotherm 40.00 50 06/08/20 20:00 94 Vapotherm 40.00 80 06/08/20 20:00 107 25 116/63 (69) 94 Vapotherm 40.00 75.00 06/08/20 19:14 36.2 06/08/20 19:00 95 06/08/20 19:00 98 22 117/72 (86) 94 Vapotherm 40.00 75.00 06/08/20 18:00 100 28 116/73 (87) 91 Vapotherm 40.00 75.00 06/08/20 17:17 36.4 98 36.0 36.8 06/08/20 17:00 82 24 126/75 (92) 90 Vapotherm 40.00 75.00 06/08/20 16:00 91 32 88/45 (59) 90 Vapotherm 40.00 75.00 06/08/20 15:45 36.4 06/08/20 15:00 91 25 117/79 (92) 91 Vapotherm 40.00 75.00 06/08/20 14:38 91 Vapotherm 40.00 75 06/08/20 14:00 93 25 114/72 (86) 92 Vapotherm 40.00 75.00 06/08/20 13:00 84 19 123/65 (84) 94 Vapotherm 40.00 75.00 06/08/20 12:49 87 06/08/20 12:00 85 25 98/88 (91) 91 Vapotherm 40.00 75.00 06/08/20 11:28 37.0 06/08/20 11:00 92 20 112/69 (83) 90 Vapotherm 40.00 75.00 06/08/20 10:27 93 Vapotherm 40.00 75 06/08/20 10:27 38.1 116 90 06/08/20 10:00 90 18 119/76 (90) 93 Vapotherm 40.00 75.00 06/08/20 09:54 38.1 116 90 100 06/08/20 09:00 94 25 97/75 (82) 95 Vapotherm 40.00 75.00 06/08/20 08:08 37.8 06/08/20 08:00 98 18 92/54 (67) 91 Vapotherm 40.00 75.00 06/08/20 08:00 95 Vapotherm 40.00 100 06/08/20 07:36 37.3 06/08/20 07:00 101 12 84/59 (67) 93 Vapotherm 40.00 75.00 06/08/20 07:00 101 06/08/20 06:34 38.3 06/08/20 06:30 112 22 122/66 (78) 87 Vapotherm 40.00 75.00 06/08/20 06:15 105 19 122/76 (91) 94 Vapotherm 40.00 75.00 06/08/20 06:00 110 15 129/76 (95) 91 Vapotherm 40.00 75.00 06/08/20 05:45 108 24 118/76 (91) 93 Vapotherm 40.00 75.00 06/08/20 05:40 22 91 Vapotherm 40.00 75.00 06/08/20 05:40 38.8 06/08/20 05:36 38.6 06/08/20 05:30 112 23 121/77 (95) 93 Vapotherm 40.00 75.00 06/08/20 05:00 108 38 132/85 (97) 93 Vapotherm 40.00 75.00 06/08/20 04:45 109 14 127/73 (90) 93 Vapotherm 40.00 75.00 I & O 06/09/20 06:59 Intake Total 1440 ml Output Total 2250 ml Balance -810 ml Height & Weight Height: 6'0.00" Weight: 360lbs. 0.0oz. 163.476337rj; 46.28 BMI Method: General Appearance: Mild Distress HEENT: PERRL/EOMI, Pharynx Normal Neck: Full Range of Motion, Normal Inspection, Non Tender, Supple Respiratory: Accessory Muscle Use, Crackles, Decreased Breath Sounds Cardiovascular: Regular Rate, Rhythm, No Gallop, No Murmur, Normal Peripheral Pulses Capillary Refill: Less Than 3 Seconds Gastrointestinal: normal bowel sounds, non tender, soft Extremity: Normal Capillary Refill, Normal Inspection, No Pedal Edema Neurologic/Psychiatric: Alert Skin: Normal Color, Warm/Dry Results Lab Laboratory Tests 06/08/20 00:30 06/08/20 05:28 06/08/20 12:21 06/08/20 15:45 06/09/20 02:43 Assessment/Plan Assessment/Plan COVID with pneumonia -oxygen Vapotherm 75% -SL IVF -Decadron -CVP -Proning -callejas cultures pending -Pt does not qualify for Remdesivir DM s/p Acute DKA -SSI -10 units of Levemir -Hold home PO diabetic meds Leukocytosis - currently on Zosyn -Continue to monitor -Recheck PCT Hypokalemia, hypophos -Replace -monitor Lethargy -- improved Hyponatremia -monitor Morbid obesity DVT/GI ppx -ortega Elias JASON M DO Jun 09, 2020 04:46
[2020-06-09] MEDS: KCL 20 MEQ TAB (K-DUR) PO SCH (05:21)
[2020-06-09] MEDS: MAGNESIUM 1 GM/100 ML IVPB 100 ML IV SCH (05:21)
[2020-06-09] MEDS ORDERED: POTASSIUM PHOSPHATE INJ 30 MM in NS (IVPB) 250 ML IV ONE (06:00)
[2020-06-09] MEDS: FAMOTIDINE 20 MG (PEPCID) TABLET PO SCH ×2 (08:36→19:17)
[2020-06-09] MEDS: dexAMETHasone 6 MG TAB (DECADRON) PO SCH (08:36)
[2020-06-09] MEDS: ENOXAPARIN 40 MG/0.4 ML (LOVENOX) SYR SC SCH ×2 (08:36→19:17)
[2020-06-09] MEDS: IBUPROFEN TABLET 200 MG TAB PO PRN (08:41)
--- NOTE | 2020-06-09 10:25 | NUR ---
UPDATED PT'S MOM KACEY ON PT'S CONDITION.
--- NOTE | 2020-06-09 15:19 | NUR ---
"RD ASSESSMENT PMHx: hypercholesterolemia; HTN; DM; PT INTERACTION: Note pt is currently in COVID isolation per chart review. Note all diet information for nutrition assessment is per Melia RN, or per chart review. Melia states current appetite appears good. Note avg PO intake >75% x1d, per chart review. Melia states no issues with nausea, vomiting, constipation, or diarrhea that she is aware of. Note no BM has been recorded, and pt not currently on bowel regimen per chart review. Note unable to determine recent wt hx, per chart review. Note unable to determine current level of DM management, and unable to determine recent HbA1c, per chart review. Est. kcal needs: 1581-9290 kcal | 25-30 kcal/kg IBW, based on IBW of 80.9 kg (178#) Est. Pro needs: 65-81 g Pro | 0.8-1.0 g Pro/kg IBW PES STATEMENT: Given current PO intake, no nutrition diagnosis at this time (NO-1.1). INTERVENTION: Continue with current diet order of CHO 60g/m 1snack diet. Did not offer diet education on DM management d/t isolation precautions. Will continue to follow and reassess as pt needs, intake, and status change. S ALIX BEAUCHAMP, MS RD LD [phone] cell"
[2020-06-09 16:13] LABS: ALBUMIN 3.3 GM/DL (3.2-4.5); CHLORIDE 99 MMOL/L (98-107); POTASSIUM 3.7 MMOL/L (3.6-5.0); SODIUM 137 MMOL/L (135-145)
[2020-06-09 16:15] LABS: CALCIUM 8.3 MG/DL (8.5-10.1)
[2020-06-09 16:16] LABS: GLUCOSE 207 MG/DL (70-105); TOTAL PROTEIN 6.6 GM/DL (6.4-8.2)
[2020-06-09 16:17] LABS: CARBON DIOXIDE 27 MMOL/L (21-32)
[2020-06-09 16:18] LABS: BILIRUBIN,TOTAL 0.5 MG/DL (0.1-1.0)
[2020-06-09 16:19] LABS: ALKALINE PHOSPHATASE 72 U/L (40-136); PHOSPHORUS 3.3 MG/DL (2.3-4.7)
[2020-06-09 16:20] LABS: CREATININE SERUM 0.72 MG/DL (0.60-1.30); GFR ESTIMATED > 60
[2020-06-09 16:21] LABS: BUN/CREATININE RATIO 14
[2020-06-09 16:22] LABS: ALANINE AMINOTRANSFERASE 33 U/L (0-55); MAGNESIUM 2.4 MG/DL (1.6-2.4)
[2020-06-09 16:40] VITALS: BP 122/91
[2020-06-09] MEDS: DexMEDEtomidine PRE MIX 100 ML IV SCH (17:17)
[2020-06-09 18:45] VITALS: BP 113/80
[2020-06-09 21:54] VITALS: BP 93/70
[2020-06-10 00:08] VITALS: BP 128/79
[2020-06-10] MEDS: RT-ALBUTEROL INHALER HFA (VENTOLIN HFA) 18 GM IH SCH ×6 (00:08→22:53)
[2020-06-10 00:29] LABS: ABG BASE EXCESS 3.8 MMOL/L (-2.5-2.5); ABG OXYGEN SATURATION 95 % (94-100); ABG PCO2 42 MMHG (35-45); ABG PH 7.44 (7.37-7.43); ABG PO2 70 MMHG (79-93); ABG TCO2 29.1 MMOL/L (21.0-31.0)
[2020-06-10 00:30] LABS: ALLENS TEST YES-POS; INSPIRED O2 100%; VENTILATOR NO
[2020-06-10] MEDS: PIPERACILLIN/TAZOBACTAM (BULK) 4.5 GM in NS (IVPB) 100 ML IV SCH ×3 (02:03→17:58)
[2020-06-10] MEDS: DexMEDEtomidine PRE MIX 100 ML IV SCH ×7 (02:04→21:07)
[2020-06-10 02:08] LABS: BASOPHILS % (AUTO) 0 % (0-10); EOSINOPHILS % (AUTO) 0 % (0-10); HEMATOCRIT 38 % (40-54); HEMOGLOBIN 13.2 g/dL (13.3-17.7); LYMPHOCYTES # (AUTO) 0.7 10^3/uL (1.0-4.0); LYMPHOCYTES % (AUTO) 6 % (12-44); MEAN CORPUSCULAR HEMOGLOBIN 29 pg (25-34); MEAN CORPUSCULAR HGB CONC 35 g/dL (32-36); MEAN CORPUSCULAR VOLUME 84 fL (80-99); MEAN PLATELET VOLUME 9.4 fL (9.0-12.2); MONOCYTES # (AUTO) 0.5 10^3/uL (0.0-1.0); MONOCYTES % (AUTO) 4 % (0-12); NEUTROPHILS # (AUTO) 9.9 10^3/uL (1.8-7.8); NEUTROPHILS % (AUTO) 88 % (42-75); PLATELET COUNT 292 10^3/uL (130-400); WHITE BLOOD COUNT 11.3 10^3/uL (4.3-11.0)
[2020-06-10 02:17] LABS: CHLORIDE 100 MMOL/L (98-107); POTASSIUM 3.8 MMOL/L (3.6-5.0); SODIUM 138 MMOL/L (135-145)
[2020-06-10 02:19] LABS: CALCIUM 8.2 MG/DL (8.5-10.1); GLUCOSE 175 MG/DL (70-105)
[2020-06-10 02:21] LABS: CARBON DIOXIDE 25 MMOL/L (21-32)
[2020-06-10 02:23] LABS: CREATININE SERUM 0.64 MG/DL (0.60-1.30); GFR ESTIMATED > 60; PHOSPHORUS 3.2 MG/DL (2.3-4.7)
[2020-06-10 02:24] LABS: BUN/CREATININE RATIO 16
[2020-06-10 02:25] LABS: MAGNESIUM 2.5 MG/DL (1.6-2.4)
[2020-06-10] MEDS: inSUlin ASPART (NovoLOG) 1 UNIT/0.01 ML (CHARGE PER UNIT) SC SCH ×6 (02:32→23:11)
[2020-06-10] MEDS: KCL 20 MEQ TAB (K-DUR) PO SCH (02:32)
[2020-06-10] MEDS: POTASSIUM CL 10MEQ/50ML IVPB 50 ML IV SCH (02:32)
[2020-06-10] MEDS: MAGNESIUM 1 GM/100 ML IVPB 100 ML IV SCH (02:32)
[2020-06-10] MEDS: dexAMETHasone 6 MG TAB (DECADRON) PO SCH (05:33)
[2020-06-10 06:45] VITALS: BP 137/99
[2020-06-10] MEDS: FAMOTIDINE 20 MG (PEPCID) TABLET PO SCH ×2 (07:42→19:20)
[2020-06-10] MEDS: ENOXAPARIN 40 MG/0.4 ML (LOVENOX) SYR SC SCH (07:42)
--- NOTE | 2020-06-10 08:44 | NUR ---
TELE-ICU DR NOTIFIED OF PTS RR 40-60, DR TO ASSESS PT, LOOK AT CHART AND CALL THIS RN BACK.
--- NOTE | 2020-06-10 09:39 | NUR ---
SPOKE W/ TELE ICU REGARDING'S PTS STATUS. NEW ORDERS RECEIVED TO INTUBATE PT TODAY. PT INFORMED AND PTS MOTHER INFORMED VIA PHONE. NO QUESTIONS/CONCERNS VOICED.
[2020-06-10] MEDS ORDERED: ROCURONIUM 10 MG/ML 5 ML SYRINGE IV PRN (10:00)
--- NOTE | 2020-06-10 10:20 | NUR ---
INTUBATION NOTE: 1020-RT AND NURSING STAFF AT BEDSIDE TO INTUBATE PT. TELE ICU ON [place] GIVING INTUBATION/MED ORDERS 1030 SUCCINYLCHOLINE 50MG GIVEN IVP. RT BAGGING PT 1033 PT INTUBATED W/ SIZE 8 ETT, COLOR CHANGE, 26 AT LIP. PROPOFOL GTT STARTED (SEE EMAR FOR DETAILS) 1040 OG INSERTED W/O DIFFICULTY BY NURSING STAFF AND PLACED ON LIS 1042 FENTANYL 50MCG GIVEN IVP VENT SETTINGS PER TELE-ICU TV 440 RR 26 PEEP 14 100% FIO2
--- NOTE | 2020-06-10 10:33 | Diagnostic Imaging Report ---
INDICATION: Dyspnea, pneumonia. TECHNIQUE: Single view chest 3:16 AM. CORRELATION STUDY: 06/09/2020 FINDINGS: Extensive 5 lobe consolidating infiltrate is again demonstrated. Overall appears increased from prior. Heart size is borderline. The right upper extremity central line tip over the SVC. IMPRESSION: 1. Extensive 5 lobe infiltrate overall appears slightly increased from prior. Dictated by: Dictated on workstation # [id number]
[2020-06-10] MEDS: PROPOFOL DRIP (ICU) 100 ML IV SCH ×5 (10:43→22:10)
[2020-06-10] MEDS: fentaNYL INJECTION 100 MCG/2 ML AMP IVP PRN ×2 (10:51→13:39)
[2020-06-10 10:58] VITALS: BP 149/102
--- NOTE | 2020-06-10 11:21 | Physical Therapy Progress Note ---
Therapy Progress Note Orders received for therapy, patient ventilated and sedated. We will continue to monitor for PT evaluation. GINA SEPULVEDA PT Jun 10, 2020 11:21
[2020-06-10] MEDS ORDERED: fentaNYL INJECTION 100 MCG/2 ML AMP IV ONE (11:25)
[2020-06-10] MEDS ORDERED: SUCCINYLCHOLINE INJ 100 MG/5 ML SYR/VIAL INJ ONE (11:25)
--- NOTE | 2020-06-10 11:51 | Diagnostic Imaging Report ---
INDICATION: Intubation. TECHNIQUE: Single view chest 10:48 AM. CORRELATION STUDY: 06/10/2020 FINDINGS: Endotracheal tube has been placed, the tip at the thoracic inlet. This is well above the leidy of approximately 5 cm. This could be advanced approximately 2 cm. Heart size is enlarged. Increasing pulmonary vascular congestion, perihilar opacities, likely edema. Additional scattered bilateral pulmonary infiltrates are present, overall generally stable. IMPRESSION: 1. Interval intubation. Endotracheal tube is a approximately 5 cm above the level the leidy and should be advanced at least 2 cm. 2. Bilateral extensive pulmonary infiltrates are again demonstrated. Dictated by: Dictated on workstation # [id number]
[2020-06-10 12:25] LABS: ABG BASE EXCESS 3.2 MMOL/L (-2.5-2.5); ABG OXYGEN SATURATION 98 % (94-100); ABG PCO2 42 MMHG (35-45); ABG PH 7.43 (7.37-7.43); ABG PO2 98 MMHG (79-93); ABG TCO2 28.6 MMOL/L (21.0-31.0)
[2020-06-10 12:26] LABS: ALLENS TEST YES-POS; INSPIRED O2 100%; PATIENT TEMP 36.4; VENTILATOR YES
[2020-06-10] MEDS ORDERED: ENOXAPARIN 100 MG/1 ML (LOVENOX) SYR SC SCH (12:45)
--- NOTE | 2020-06-10 12:49 | NUR ---
ABG AND CHEST XRAY RESULTS GIVEN TO TELE-ICU. NO NEW ORDERS RECEIVED.
[2020-06-10] MEDS ORDERED: ENOXAPARIN 300 MG/3 ML (LOVENOX) MULTI-DOSE VIAL SQ NR (13:00)
[2020-06-10] MEDS ORDERED: ENOXAPARIN 300 MG/3 ML (LOVENOX) MULTI-DOSE VIAL SQ SCH (13:00)
--- NOTE | 2020-06-10 13:20 | NUR ---
SPOKE TO DR PEACE REGARDING PT'S ELEVATED BP, NEW ORDERS RECEIVED FOR FENTANYL DRIP.
--- NOTE | 2020-06-10 13:29 | Progress Note - Hospitalist ---
Subjective HPI/CC On Admission Date Seen by Provider: Jun 10, 2020 Time Seen by Provider: 09:25 Subjective/Events-last exam He is wearing BiPAP. He is very short of breath. He is tired and weak. We discussed intubation and he is agreeable. Focused Exam Lactate Level 06/08/20 00:30: Lactic Acid Level 2.87*H 06/08/20 02:55: Lactic Acid Level 1.56 06/08/20 05:28: Lactic Acid Level 1.14 Objective Exam Vital Signs Vital Signs Date Time Temp Pulse Resp B/P (MAP) Pulse Ox O2 Delivery O2 Flow Rate FiO2 06/10/20 12:21 71 29 140/103 96 Mechanical Ventilator 100.00 06/10/20 11:10 36.1 06/10/20 10:58 100 Capillary Refill : Less Than 3 Seconds General Appearance: Obese, Severe Distress (tachypnea) Respiratory: Decreased Breath Sounds, Respiratory Distress (tachypnea), Other (wearing BiPAP) Cardiovascular: Regular Rate, Rhythm, No Edema, No Murmur Gastrointestinal: Normal Bowel Sounds, Non Tender, Soft Extremity: Normal Inspection, Non Tender, No Pedal Edema Neurologic/Psychiatric: Alert, Motor Weakness, Other (fatigued) Skin: Normal Color, Warm/Dry Results/Procedures Lab Laboratory Tests 06/09/20 15:45 06/10/20 02:00 Patient resulted labs reviewed. Imaging: Reviewed Imaging Report Assessment/Plan Assessment and Plan Assess & Plan/Chief Complaint ARDS due to COVID-19 PNA Decadron Remdesivir not indicated s/p convalescent plasma 1 Currently on BiPAP 100% Proceed with intubation TeleICU assisting with ventilator settings D-dimer elevated Begin therapeutic Lovenox Obtain CT Chest when stabilized to rule out PE Zosyn T2DM with DKA DKA resolved Sliding scale insulin Morbid obesity Clinically significant, no acute management needs DVT Prophylaxis: already receiving therapeutic anticoagulation Diagnosis/Problems Diagnosis/Problems (1) Acute respiratory distress syndrome (ARDS) due to COVID-19 virus Status: Acute (2) PNA (pneumonia) Status: Acute (3) T2DM (type 2 diabetes mellitus) Status: Chronic (4) Morbid obesity Status: Chronic Clinical Quality Measures DVT/VTE Risk/Contraindication: Risk Factor Score Per Nursin RFS Level Per Nursing on Admit: 4+=Very High STEPHANIE PEACE MD Jun 10, 2020 13:29
[2020-06-10] MEDS: fentaNYL DRIP PRE-MIX 250 ML IV SCH (13:57)
--- NOTE | 2020-06-10 14:24 | NUR ---
ATTEMPTED TO CALL PTS MOTHER, NO ANSWER.
--- NOTE | 2020-06-10 14:29 | NUR ---
PTS MOTHER DAO UPDATED ON PTS CONDITION. NO CONCERNS VOICED.
[2020-06-10 14:39] VITALS: BP 147/100
[2020-06-10] MEDS: hydrALAZINE (APESOLINE) 20 MG/ML VIAL IV SCH ×3 (15:50→23:12)
--- NOTE | 2020-06-10 17:36 | Diagnostic Imaging Report ---
PROCEDURE: CT angiography of the chest with contrast. TECHNIQUE: Multiple contiguous axial images were obtained through the chest after uneventful bolus administration of intravenous contrast. 3D reconstructed CTA MIP acquisitions were also performed. Auto Exposure Controls were utilized during the CT exam to meet ALARA standards for radiation dose reduction. INDICATION: Pneumonia. Hypoxia. FINDINGS: There is adequate opacification of the pulmonary arterial system for diagnostic evaluation. There is no finding of a pulmonary artery filling defect to suggest pulmonary embolism. There is no evidence by CT of right ventricular strain. The thoracic aorta is normal in caliber. Endotracheal tube appears appropriately positioned. An enteric tube extends to the stomach. Extensive five lobe alveolar consolidations demonstrated throughout the lungs are compatible with multifocal lobar pneumonia. The most significant and dense involvement appears within the left lower lobe. There is no significant pleural fluid. There are no findings of significant mediastinal adenopathy. The upper abdomen demonstrates no evidence of an acute process. No acute or suspicious osseous abnormality is evident. IMPRESSION: 1. Extensive five lobe pulmonary alveolar consolidation compatible with patient's history of Covid-19 pneumonia. There is no significant effusion or adenopathy. 2. No finding of pulmonary embolism or evidence of right ventricular strain. Dictated by: Dictated on workstation # [id number]
[2020-06-10] MEDS ORDERED: IOHEXOL 350 MG/ML 100 ML (OMNIPAQUE 350) VIAL IV ONE (18:00)
[2020-06-10] MEDS ORDERED: HOLD METFORMIN - RECEIVED CONTRAST 20 ML VIAL IV SCH (18:00)
[2020-06-10] MEDS ORDERED: NS 100 ML (IVPB) BAG IV ONE (18:00)
[2020-06-10 18:56] VITALS: BP 149/101
[2020-06-10] MEDS: ENOXAPARIN 300 MG/3 ML (LOVENOX) MULTI-DOSE VIAL SQ SCH (22:06)
[2020-06-10 22:54] VITALS: BP 146/85
[2020-06-10] MEDS: IBUPROFEN TABLET 200 MG TAB PO PRN (23:17)
[2020-06-11] MEDS: fentaNYL DRIP PRE-MIX 250 ML IV SCH ×5 (01:17→22:59)
[2020-06-11 01:30] VITALS: BP 131/67
[2020-06-11] MEDS: RT-ALBUTEROL INHALER HFA (VENTOLIN HFA) 18 GM IH SCH ×6 (01:30→23:08)
[2020-06-11] MEDS: PIPERACILLIN/TAZOBACTAM (BULK) 4.5 GM in NS (IVPB) 100 ML IV SCH ×3 (02:43→17:41)
[2020-06-11] MEDS: DexMEDEtomidine PRE MIX 100 ML IV SCH ×5 (02:58→23:29)
[2020-06-11] MEDS: PROPOFOL DRIP (ICU) 100 ML IV SCH ×10 (02:58→22:47)
[2020-06-11 03:07] LABS: BASOPHILS % (AUTO) 0 % (0-10); EOSINOPHILS % (AUTO) 0 % (0-10); HEMATOCRIT 41 % (40-54); HEMOGLOBIN 13.4 g/dL (13.3-17.7); LYMPHOCYTES # (AUTO) 1.4 10^3/uL (1.0-4.0); LYMPHOCYTES % (AUTO) 11 % (12-44); MEAN CORPUSCULAR HEMOGLOBIN 29 pg (25-34); MEAN CORPUSCULAR HGB CONC 33 g/dL (32-36); MEAN CORPUSCULAR VOLUME 86 fL (80-99); MEAN PLATELET VOLUME 9.3 fL (9.0-12.2); MONOCYTES % (AUTO) 8 % (0-12); NEUTROPHILS # (AUTO) 10.5 10^3/uL (1.8-7.8); NEUTROPHILS % (AUTO) 81 % (42-75); PLATELET COUNT 391 10^3/uL (130-400); WHITE BLOOD COUNT 13.1 10^3/uL (4.3-11.0)
[2020-06-11 03:09] LABS: ABG BASE EXCESS 6.6 MMOL/L (-2.5-2.5); ABG OXYGEN SATURATION 98 % (94-100); ABG PCO2 26 MMHG (35-45); ABG PO2 149 MMHG (79-93)
[2020-06-11 03:18] LABS: CHLORIDE 101 MMOL/L (98-107); POTASSIUM 3.7 MMOL/L (3.6-5.0); SODIUM 141 MMOL/L (135-145)
[2020-06-11 03:19] LABS: CALCIUM 8.2 MG/DL (8.5-10.1); GLUCOSE 183 MG/DL (70-105)
[2020-06-11 03:21] LABS: CARBON DIOXIDE 26 MMOL/L (21-32)
[2020-06-11 03:23] LABS: CREATININE SERUM 0.77 MG/DL (0.60-1.30); GFR ESTIMATED > 60
[2020-06-11 03:24] LABS: BUN/CREATININE RATIO 23
[2020-06-11 03:26] LABS: MAGNESIUM 2.6 MG/DL (1.6-2.4)
[2020-06-11 03:30] LABS: ABG PH 7.64 (7.37-7.43)
[2020-06-11 03:31] LABS: ALLENS TEST YES-POS; INSPIRED O2 85%; VENTILATOR YES
[2020-06-11] MEDS: inSUlin ASPART (NovoLOG) 1 UNIT/0.01 ML (CHARGE PER UNIT) SC SCH ×6 (03:52→23:01)
[2020-06-11] MEDS: MAGNESIUM 1 GM/100 ML IVPB 100 ML IV SCH (03:53)
[2020-06-11] MEDS: POTASSIUM CL 10MEQ/50ML IVPB 50 ML IV SCH (03:53)
[2020-06-11] MEDS: KCL 20 MEQ TAB (K-DUR) PO SCH (03:53)
[2020-06-11] MEDS: hydrALAZINE (APESOLINE) 20 MG/ML VIAL IV SCH ×6 (04:04→22:57)
[2020-06-11] MEDS: dexAMETHasone 6 MG TAB (DECADRON) PO SCH (04:04)
[2020-06-11 07:15] VITALS: BP 116/76
--- NOTE | 2020-06-11 07:39 | NUR ---
PT KEEPS MOVING /KICKING LEGS WHILE LYING IN BED. THIS RN ASKED PT IF HE WANTED SCD'S AND FOAM BOOTS REMOVED, PT NODDED YES. BOTH REMOVED PER PT REQUEST.
[2020-06-11] MEDS: PANTOPRAZOLE 40 MG (PROTONIX) VIAL IV SCH (07:42)
[2020-06-11] MEDS: FAMOTIDINE 20 MG (PEPCID) TABLET PO SCH ×2 (07:42→19:28)
--- NOTE | 2020-06-11 08:04 | Diagnostic Imaging Report ---
EXAMINATION: Portable erect AP chest at 4:00 AM INDICATION: Respiratory distress The heart is stable in size when compared to the prior exam of 06/10/2020. The diffuse alveolar/interstitial pulmonary infiltrates seen previously are again evident and not significantly changed. The mediastinum is not widened. The osseous structures are intact. The supportive tubes and lines seen previously are unchanged in position. IMPRESSION: Stable chest. There has been no adverse change since the prior exam. Dictated by: Dictated on workstation # [id number]
[2020-06-11] MEDS: ACETAMINOPHEN 500 MG TAB (TYLENOL) PO PRN ×2 (08:26→19:28)
[2020-06-11 11:15] VITALS: BP 124/80
[2020-06-11] MEDS: ENOXAPARIN 300 MG/3 ML (LOVENOX) MULTI-DOSE VIAL SQ SCH ×2 (11:20→22:56)
--- NOTE | 2020-06-11 11:44 | NUR ---
PTS MOTHER DAO UPDATED ON PTS CONDITION. NO CONCERNS VOICED.
[2020-06-11] MEDS: IBUPROFEN TABLET 200 MG TAB PO PRN (13:01)
[2020-06-11] MEDS ORDERED: FUROSEMIDE 40 MG/4 ML INJ (LASIX) IVP NR (14:15)
[2020-06-11 14:49] VITALS: BP 123/81
--- NOTE | 2020-06-11 15:09 | Progress Note - Hospitalist ---
Subjective HPI/CC On Admission Date Seen by Provider: Jun 11, 2020 Time Seen by Provider: 10:55 Subjective/Events-last exam he is intubated and sedated. Objective Exam Vital Signs Vital Signs Date Time Temp Pulse Resp B/P (MAP) Pulse Ox O2 Delivery O2 Flow Rate FiO2 06/11/20 15:01 38.1 73 21 123/81 92 Mechanical Ventilator 75.00 06/11/20 14:49 80 Capillary Refill : Less Than 3 Seconds General Appearance: No Apparent Distress, Obese, Other (intubated and sedated) Respiratory: Lungs Clear, Normal Breath Sounds, No Respiratory Distress, Other (and mechanically ventilated) Cardiovascular: Regular Rate, Rhythm, No Edema, No Murmur Gastrointestinal: Normal Bowel Sounds, Soft Extremity: Normal Inspection, No Pedal Edema Neurologic/Psychiatric: Other (sedated) Skin: Normal Color, Warm/Dry Results/Procedures Lab Laboratory Tests 06/11/20 02:40 Patient resulted labs reviewed. Imaging: Reviewed Imaging Report Assessment/Plan Assessment and Plan Assess & Plan/Chief Complaint ARDS due to COVID-19 PNA Hypercoagulable state due to COVID-19 Decadron Remdesivir not indicated s/p convalescent plasma 1 Intubated 06/10 TeleICU assisting with ventilator settings D-dimer elevated, trending up today CT Chest negative for PE Therapeutic Lovenox Zosyn T2DM with DKA DKA resolved Sliding scale insulin Morbid obesity Clinically significant, no acute management needs DVT Prophylaxis: already receiving therapeutic anticoagulation Diagnosis/Problems Diagnosis/Problems (1) Acute respiratory distress syndrome (ARDS) due to COVID-19 virus Status: Acute (2) PNA (pneumonia) Status: Acute (3) T2DM (type 2 diabetes mellitus) Status: Chronic (4) Morbid obesity Status: Chronic (5) Hypercoagulable state associated with COVID-19 Status: Acute Clinical Quality Measures DVT/VTE Risk/Contraindication: Risk Factor Score Per Nursin RFS Level Per Nursing on Admit: 4+=Very High STEPHANIE PEACE MD Jun 11, 2020 15:09
[2020-06-11 18:57] VITALS: BP 132/82
[2020-06-11 23:08] VITALS: BP 108/75
[2020-06-12] MEDS: fentaNYL INJECTION 100 MCG/2 ML AMP IVP PRN (00:47)
[2020-06-12] MEDS: PROPOFOL DRIP (ICU) 100 ML IV SCH ×6 (00:50→20:18)
[2020-06-12] MEDS: DexMEDEtomidine PRE MIX 100 ML IV SCH ×11 (00:51→23:22)
[2020-06-12] MEDS ORDERED: MIDAZOLAM DRIP PRE-MIX 100 ML IV ONE (00:52)
[2020-06-12] MEDS: MIDAZOLAM DRIP PRE-MIX 100 ML IV SCH ×3 (00:59→20:11)
--- NOTE | 2020-06-12 01:03 | NUR ---
PT ATTEMPTED TO GET OUT OF BED AT THIS TIME EVEN THOUGH PT IS ON MAX DOSE OF ALL SEDATION MEDICATIONS INCLUDING PRECEDEX, PROPOFOL AND FENTANYL. E-ICU CALLED AND ORDERS RECEIVED TO START VERSED GTT.
[2020-06-12] MEDS: PIPERACILLIN/TAZOBACTAM (BULK) 4.5 GM in NS (IVPB) 100 ML IV SCH ×3 (01:42→20:11)
[2020-06-12 01:59] LABS: BASOPHILS % (AUTO) 0 % (0-10); EOSINOPHILS % (AUTO) 0 % (0-10); HEMATOCRIT 33 % (40-54); HEMOGLOBIN 11.5 g/dL (13.3-17.7); LYMPHOCYTES # (AUTO) 1.6 10^3/uL (1.0-4.0); LYMPHOCYTES % (AUTO) 17 % (12-44); MEAN CORPUSCULAR HEMOGLOBIN 31 pg (25-34); MEAN CORPUSCULAR HGB CONC 35 g/dL (32-36); MEAN CORPUSCULAR VOLUME 89 fL (80-99); MEAN PLATELET VOLUME 9.4 fL (9.0-12.2); MONOCYTES # (AUTO) 0.8 10^3/uL (0.0-1.0); MONOCYTES % (AUTO) 9 % (0-12); NEUTROPHILS # (AUTO) 6.3 10^3/uL (1.8-7.8); NEUTROPHILS % (AUTO) 70 % (42-75); PLATELET COUNT 370 10^3/uL (130-400)
[2020-06-12 02:07] LABS: CHLORIDE 102 MMOL/L (98-107); POTASSIUM 3.2 MMOL/L (3.6-5.0); SODIUM 134 MMOL/L (135-145)
[2020-06-12 02:09] LABS: CALCIUM 6.1 MG/DL (8.5-10.1); GLUCOSE 123 MG/DL (70-105)
[2020-06-12 02:11] LABS: CARBON DIOXIDE 18 MMOL/L (21-32)
[2020-06-12 02:13] LABS: CREATININE SERUM 0.58 MG/DL (0.60-1.30); GFR ESTIMATED > 60; PHOSPHORUS 2.4 MG/DL (2.3-4.7)
[2020-06-12 02:14] LABS: BUN/CREATININE RATIO 22
[2020-06-12 02:15] LABS: MAGNESIUM 1.7 MG/DL (1.6-2.4); TRIGLYCERIDES 2574 MG/DL (<150)
[2020-06-12] MEDS: RT-ALBUTEROL INHALER HFA (VENTOLIN HFA) 18 GM IH SCH ×6 (02:20→21:28)
[2020-06-12 02:21] VITALS: BP 160/104
[2020-06-12] MEDS: fentaNYL DRIP PRE-MIX 250 ML IV SCH ×7 (02:24→20:12)
[2020-06-12] MEDS: inSUlin ASPART (NovoLOG) 1 UNIT/0.01 ML (CHARGE PER UNIT) SC SCH ×6 (02:29→23:54)
[2020-06-12 02:33] LABS: ABG BASE EXCESS 5.6 MMOL/L (-2.5-2.5); ABG OXYGEN SATURATION 98 % (94-100); ABG PCO2 51 MMHG (35-45); ABG PO2 104 MMHG (79-93); ABG TCO2 31.7 MMOL/L (21.0-31.0)
[2020-06-12 02:34] LABS: ALLENS TEST YES-POS; INSPIRED O2 95%; PATIENT TEMP 37.8; VENTILATOR YES
[2020-06-12] MEDS: hydrALAZINE (APESOLINE) 20 MG/ML VIAL IV SCH (03:56)
--- NOTE | 2020-06-12 05:05 | Pulmonary Progress Note ---
Subjective Time Seen by a Provider: 05:00 Subjective/Events-last exam Pt is sedated on vent. Sepsis Event Evaluation Height, Weight, BMI Height: 6'0.00" Weight: 360lbs. 0.0oz. 163.613665lv; 46.28 BMI Method: Exam Exam Vital Signs Date Time Temp Pulse Resp B/P (MAP) Pulse Ox O2 Delivery O2 Flow Rate FiO2 06/12/20 04:00 76 20 152/88 (109) 97 Mechanical Ventilator 85.00 06/12/20 03:27 37.8 06/12/20 03:19 71 06/12/20 03:07 159/98 06/12/20 03:07 159/98 06/12/20 03:00 73 20 150/97 (114) 97 Mechanical Ventilator 85.00 06/12/20 02:24 73 06/12/20 02:21 69 20 97 95 06/12/20 02:00 Mechanical Ventilator 85.00 06/12/20 02:00 67 20 157/94 (115) 95 Mechanical Ventilator 85.00 06/12/20 01:44 37.8 06/12/20 01:42 Mechanical Ventilator 95.00 06/12/20 01:07 70 06/12/20 01:00 70 20 158/105 (122) 95 Mechanical Ventilator 100.00 06/12/20 00:59 138/88 06/12/20 00:51 70 06/12/20 00:50 138/88 06/12/20 00:50 138/88 06/12/20 00:00 71 20 138/88 (105) 95 Mechanical Ventilator 100.00 06/11/20 23:29 70 06/11/20 23:15 Mechanical Ventilator 100.00 06/11/20 23:08 70 23 88 100 06/11/20 23:00 71 20 139/90 (106) 90 Mechanical Ventilator 90.00 06/11/20 22:58 Mechanical Ventilator 90.00 06/11/20 22:50 38.1 06/11/20 22:47 128/81 06/11/20 22:47 128/81 06/11/20 22:00 68 20 135/86 (101) 93 Mechanical Ventilator 85.00 06/11/20 21:00 70 20 134/83 (97) 92 Mechanical Ventilator 85.00 06/11/20 20:00 70 20 132/82 (96) 91 Mechanical Ventilator 85.00 06/11/20 19:58 38.1 06/11/20 19:47 93 Mechanical Ventilator 85 06/11/20 19:33 37.9 Mechanical Ventilator 85.00 06/11/20 19:28 136/88 06/11/20 19:28 38.3 06/11/20 19:27 75 06/11/20 19:26 136/88 06/11/20 19:00 71 06/11/20 19:00 71 20 133/86 (97) 91 06/11/20 18:57 71 25 93 85 06/11/20 18:00 71 20 130/83 (97) 88 Mechanical Ventilator 85.00 06/11/20 17:45 76 23 117/81 (93) 89 06/11/20 17:42 76 133/80 06/11/20 17:42 76 133/80 06/11/20 17:30 73 22 125/75 (91) 89 06/11/20 17:19 38.2 06/11/20 17:15 75 14 111/73 (84) 93 06/11/20 17:00 76 21 133/80 (98) 91 Mechanical Ventilator 85.00 06/11/20 16:45 76 28 125/84 (96) 87 06/11/20 16:30 74 16 126/83 (98) 90 06/11/20 16:15 75 17 130/81 (96) 90 06/11/20 16:12 38.2 06/11/20 16:00 77 15 127/76 (93) 91 Mechanical Ventilator 85.00 06/11/20 15:30 75 25 131/80 (97) 90 Mechanical Ventilator 85.00 06/11/20 15:19 Mechanical Ventilator 85.00 06/11/20 15:10 73 123/81 06/11/20 15:10 73 123/81 06/11/20 15:01 38.1 73 21 123/81 92 Mechanical Ventilator 75.00 06/11/20 15:00 38.1 06/11/20 15:00 74 27 119/74 (89) 90 Mechanical Ventilator 75.00 06/11/20 15:00 38.1 06/11/20 14:49 73 21 92 80 06/11/20 14:30 72 10 123/81 (95) 89 06/11/20 14:00 72 19 124/77 (93) 91 Mechanical Ventilator 75.00 06/11/20 13:30 73 13 132/83 (96) 92 06/11/20 13:01 38.1 06/11/20 13:01 38.1 06/11/20 13:00 75 06/11/20 13:00 75 17 129/73 (98) 89 Mechanical Ventilator 75.00 06/11/20 12:30 76 28 131/82 (100) 92 06/11/20 12:00 75 24 126/81 (96) 91 Mechanical Ventilator 75.00 06/11/20 11:24 38.3 06/11/20 11:21 75 124/80 06/11/20 11:20 75 124/80 06/11/20 11:15 75 25 92 75 06/11/20 11:00 84 25 129/76 (93) 97 Mechanical Ventilator 75.00 06/11/20 10:30 74 24 126/81 (96) 94 Mechanical Ventilator 75.00 06/11/20 10:00 75 25 123/80 (93) 94 Mechanical Ventilator 75.00 06/11/20 09:33 38.2 06/11/20 09:30 74 26 128/80 (97) 94 06/11/20 09:00 74 26 126/80 (94) 92 Mechanical Ventilator 75.00 06/11/20 08:31 38.3 73 30 116/76 92 Mechanical Ventilator 75.00 06/11/20 08:30 75 28 126/77 (94) 95 06/11/20 08:26 38.3 06/11/20 08:24 38.3 06/11/20 08:00 93 Mechanical Ventilator 75 06/11/20 08:00 26 125/81 (96) 94 Mechanical Ventilator 75.00 06/11/20 07:37 73 116/76 06/11/20 07:36 73 116/76 06/11/20 07:33 38.1 Mechanical Ventilator 75.00 06/11/20 07:30 75 32 117/74 (90) 91 06/11/20 07:15 73 30 92 75 06/11/20 07:00 75 30 116/76 (87) 91 06/11/20 07:00 74 06/11/20 06:46 Mechanical Ventilator 75.00 06/11/20 06:30 73 31 115/72 (86) 91 06/11/20 06:00 74 29 111/72 (85) 91 Mechanical Ventilator 70.00 06/11/20 05:40 Mechanical Ventilator 70.00 06/11/20 05:35 37.6 Mechanical Ventilator 75.00 I & O 06/12/20 07:00 Intake Total 3100 ml Output Total 2675 ml Balance 425 ml Height & Weight Height: 6'0.00" Weight: 360lbs. 0.0oz. 163.971175kx; 46.28 BMI Method: General Appearance: No Apparent Distress, Obese, Other (intubated and sedated) Respiratory: Lungs Clear, Normal Breath Sounds, No Respiratory Distress, Other (and mechanically ventilated) Cardiovascular: Regular Rate, Rhythm, No Edema, No Murmur Capillary Refill: Less Than 3 Seconds Gastrointestinal: normal bowel sounds, non tender, soft Extremity: Normal Inspection, No Pedal Edema Neurologic/Psychiatric: Other (sedated) Skin: Normal Color, Warm/Dry Results Lab Laboratory Tests 06/11/20 02:40 06/12/20 01:40 Assessment/Plan Assessment/Plan COVID with pneumonia -Pt was intubated 06/10 - per EICU -Precedex, propofol 50, Fentanyl 400, and Versed 6mg -D/C propofol secondary to triglycerides -Vent / 85% -Increase PEEP to 16 -Advance ET tube 4cm -Start TF per dietary recs -EICU managed through the weekend -SL IVF -Decadron -CVP - start Proning pt today -callejas cultures pending -Pt does not qualify for Remdesivir Hypertriglyceridemia -D/C propofol -Add Adivan pushes DM s/p Acute DKA -Repeat beta hydroxybuterate and UA -Start D5 LR -Restart Levemier -SSI -10 units of Levemir -Hold home PO diabetic meds Leukocytosis - currently on Zosyn -Continue to monitor -Recheck PCT Morbid obesity DVT/GI ppx -Lovenox , pepcid I called and discussed pt's current condition with his mother. Critical Care: Critically Ill Patient Time spent with patient (mins): 60 NAT BRIGHT DO Jun 12, 2020 05:05
[2020-06-12] MEDS: KCL 20 MEQ TAB (K-DUR) PO SCH (05:33)
[2020-06-12] MEDS: MAGNESIUM 1 GM/100 ML IVPB 100 ML IV SCH ×3 (05:33→06:37)
[2020-06-12] MEDS: POTASSIUM CL 10MEQ/50ML IVPB 50 ML IV SCH ×7 (05:33→08:03)
[2020-06-12] MEDS: D5 LR IV SOLUTION 1,000 ML IV SCH ×3 (05:48→23:22)
[2020-06-12] MEDS: LORazepam INJ 2 MG/ML (ATIVAN) VIAL IV PRN ×2 (05:50→10:00)
[2020-06-12] MEDS: dexAMETHasone 6 MG TAB (DECADRON) PO SCH (05:55)
[2020-06-12 06:06] LABS: CLARITY,URINE CLEAR; COLOR,URINE YELLOW; GLUCOSE, URINE (UA) NEGATIVE (NEGATIVE); KETONES,URINE 1+ (NEGATIVE); LEUKOCYTE ESTERASE ,URINE NEGATIVE (NEGATIVE); NITRITE,URINE NEGATIVE (NEGATIVE); PH,URINE 6.5 (5-9); PROTEIN,URINE TRACE (NEGATIVE)
[2020-06-12 06:30] LABS: BACTERIA,URINE NEGATIVE /HPF; BILIRUBIN,URINE 1+ (NEGATIVE); SQUAMOUS EPITHELIAL CELL,UR 0-2 /HPF
--- NOTE | 2020-06-12 06:42 | NUR ---
PT MOTHER UPDATED BY DR BRIGHT AND THIS RN AT THIS TIME.
[2020-06-12 06:59] VITALS: BP 150/84
--- NOTE | 2020-06-12 06:59 | Diagnostic Imaging Report ---
INDICATION: ET tube placement COMPARISON: 06/12/2020 at 3:42 a.m. FINDINGS: Single view of the chest demonstrates an ET tube just above the leidy. NG tube appears to be within the stomach. Infiltrates are unchanged. There is no pneumothorax. IMPRESSION: Support devices as described. No pneumothorax. Dictated by: Dictated on workstation # [id number]
--- NOTE | 2020-06-12 07:04 | Occ Therapy Progress Note ---
Therapy Progress Note Pt is currently intubated and sedated. OT will monitor pt and initiate tx when pt is more medically stable and able to actively participate in skilled therapy. JAS GARCIA Jun 12, 2020 07:04
--- NOTE | 2020-06-12 07:20 | Diagnostic Imaging Report ---
INDICATION: Shortness of breath, infiltrates, intubated. COMPARISON: 06/11/2020. FINDINGS: Single view of the chest demonstrates ET tube just above the thoracic inlet in the distal cervical trachea. The NG tube is stable. Infiltrates are unchanged. There is no pneumothorax. The heart is slightly enlarged. IMPRESSION: 1. ET tube distal cervical trachea. 2. Unchanged bilateral pulmonary infiltrates. Dictated by: Dictated on workstation # [id number]
[2020-06-12] MEDS: PANTOPRAZOLE 40 MG (PROTONIX) VIAL IV SCH (08:01)
[2020-06-12] MEDS: IBUPROFEN TABLET 200 MG TAB PO PRN ×3 (08:05→23:21)
--- NOTE | 2020-06-12 08:07 | Physical Therapy Progress Note ---
Therapy Progress Note Patient remains sedated and intubated. PT will continue to monitor patient status. LYNDSAY PERRY PT Jun 12, 2020 08:07
[2020-06-12] MEDS: FAMOTIDINE 20 MG (PEPCID) TABLET PO SCH ×2 (08:41→20:13)
[2020-06-12] MEDS: ENOXAPARIN 300 MG/3 ML (LOVENOX) MULTI-DOSE VIAL SQ SCH ×2 (11:40→23:21)
[2020-06-12] MEDS: ACETAMINOPHEN 500 MG TAB (TYLENOL) PO PRN (11:47)
[2020-06-12 14:30] VITALS: BP 149/89
--- NOTE | 2020-06-12 16:17 | NUR ---
1545 PT'S TEMP NOTED TO BE INCREASING, RECTAL TEMP INSERTED, AND E-ICU NOTIFIED OF PT'S ELEVATED TEMP. AWAITING ORDERS. [address] SPOKE TO E-ICU DR SCANLON ABOUT PT'S CONDITION, NEW ORDERS RECEIVED. AWAITING ORDERS TO BE ENTERED.
[2020-06-12] MEDS ORDERED: APAP 325 MG/10.15 ML LIQ (TYLENOL) UDC PO PRN (16:30)
[2020-06-12] MEDS ORDERED: KETOROLAC 15 MG/ML VIAL IV SCH (16:30)
[2020-06-12] MEDS ORDERED: KETOROLAC 30 MG/ML VIAL ONE (16:35)
[2020-06-12] MEDS ORDERED: KETOROLAC 60 MG/2 ML VIAL IM NR (17:00)
--- NOTE | 2020-06-12 17:03 | NUR ---
Received dietary consult for vent status. Would recommend TF of Pulmocare via 60ml bolus feeds q4h, with 30ml free water flushes before/after bolus feed. Recommend increase TF by 30ml q8h as tolerated toward goal of 225ml bolus feeds q4h. Will continue to follow and reassess as pt needs, intake, and status change. Carl Trinh, MS RD LD [phone] cell
--- NOTE | 2020-06-12 17:33 | Diagnostic Imaging Report ---
INDICATION: Fever, excessive drainage from OG tube. EXAMINATION: Abdomen from 06/12/2020. FINDINGS: Five views of the abdomen. There is a feeding tube tip in the mid upper abdomen. There is no free air beneath the diaphragm. Nonobstructive bowel gas pattern noted. Tubular structure is coiled near the pubic symphysis. Correlate clinically. Infiltrate seen in the visualized lung bases. IMPRESSION: 1. Feeding tube tip as above. Other findings as noted. Dictated by: Dictated on workstation # [id number]
[2020-06-12 18:13] LABS: ALBUMIN 2.4 GM/DL (3.2-4.5); CHLORIDE 110 MMOL/L (98-107); POTASSIUM 3.6 MMOL/L (3.6-5.0); SODIUM 141 MMOL/L (135-145)
[2020-06-12 18:14] LABS: CALCIUM 6.1 MG/DL (8.5-10.1)
[2020-06-12 18:15] LABS: AMYLASE 47 U/L (25-125)
[2020-06-12 18:16] LABS: GLUCOSE 158 MG/DL (70-105); TOTAL PROTEIN 5.1 GM/DL (6.4-8.2)
[2020-06-12 18:17] LABS: BILIRUBIN,TOTAL 0.4 MG/DL (0.1-1.0); CARBON DIOXIDE 23 MMOL/L (21-32)
[2020-06-12 18:19] LABS: ALKALINE PHOSPHATASE 47 U/L (40-136); CREATININE SERUM 0.58 MG/DL (0.60-1.30); GFR ESTIMATED > 60; PHOSPHORUS 2.3 MG/DL (2.3-4.7)
[2020-06-12 18:20] LABS: BUN/CREATININE RATIO 14
[2020-06-12 18:22] LABS: ALANINE AMINOTRANSFERASE 25 U/L (0-55)
[2020-06-12 18:23] LABS: LIPASE 52 U/L (8-78)
--- NOTE | 2020-06-12 18:28 | NUR ---
UPDATED PT'S MOM ON CONDITION
--- NOTE | 2020-06-12 18:28 | NUR ---
1703 CLARIFIED DOSE OF TORADOL PER OUR PHARMACY, SPOKE TO TELE ICU DR SCANLON AND 60MG TO BE GIVEN,
[2020-06-12 18:55] VITALS: BP 141/97
--- NOTE | 2020-06-12 18:58 | NUR ---
LATE ENTRY: 899 DR BRIGHT NOTIFIED THAT PT SITTING UP IN BED AFTER D/C PROPOFOL. ORDERS RECEIVED TO RESTART PROPOFOL BUT ONLY AT 20 AND TO GIVE IV PUSHES OF ATIVAN NEEDED.
--- NOTE | 2020-06-12 19:30 | NUR ---
PT FEBRILE 38.9 C. ICE PACKS APPLIED TO GROIN, BILAT AXILLA, AND NECK. COOLING BLANKET ON ABDOMEN. WILL CONTINUE TO MONITOR.
[2020-06-12] MEDS: ACETAMINOPHEN 650 MG SUPP (TYLENOL) PR PRN (20:14)
[2020-06-12 21:29] VITALS: BP 130/80
[2020-06-13] VITALS (7 sets, daily range): BP systolic 116–174; BP diastolic 78–106
--- NOTE | 2020-06-13 00:26 | NUR ---
PT REMAINS FEBRILE 38.7 C. ICE PACKS REAPPLIED TO GROIN, BILAT AXILLA, AND NECK. COOLING BLANKET ON ABDOMEN. IBUPROFEN 400 MG GIVEN. WILL CONTINUE TO MONITOR.
[2020-06-13] MEDS: fentaNYL DRIP PRE-MIX 250 ML IV SCH ×8 (02:10→22:46)
[2020-06-13] MEDS: RT-ALBUTEROL INHALER HFA (VENTOLIN HFA) 18 GM IH PRN (02:10)
[2020-06-13] MEDS: RT-ALBUTEROL INHALER HFA (VENTOLIN HFA) 18 GM IH SCH ×6 (02:11→22:02)
[2020-06-13] MEDS: PIPERACILLIN/TAZOBACTAM (BULK) 4.5 GM in NS (IVPB) 100 ML IV SCH ×3 (02:11→18:43)
[2020-06-13] MEDS: DexMEDEtomidine PRE MIX 100 ML IV SCH ×9 (02:13→23:15)
[2020-06-13 02:55] LABS: BASOPHILS % (AUTO) 0 % (0-10); EOSINOPHILS # (AUTO) 0.1 10^3/uL (0.0-0.3); EOSINOPHILS % (AUTO) 1 % (0-10); HEMATOCRIT 40 % (40-54); HEMOGLOBIN 12.6 g/dL (13.3-17.7); LYMPHOCYTES # (AUTO) 2.1 10^3/uL (1.0-4.0); LYMPHOCYTES % (AUTO) 22 % (12-44); MEAN CORPUSCULAR HEMOGLOBIN 28 pg (25-34); MEAN CORPUSCULAR HGB CONC 31 g/dL (32-36); MEAN CORPUSCULAR VOLUME 90 fL (80-99); MEAN PLATELET VOLUME 8.9 fL (9.0-12.2); MONOCYTES # (AUTO) 1.1 10^3/uL (0.0-1.0); MONOCYTES % (AUTO) 12 % (0-12); NEUTROPHILS # (AUTO) 5.8 10^3/uL (1.8-7.8); NEUTROPHILS % (AUTO) 62 % (42-75); PLATELET COUNT 424 10^3/uL (130-400); WHITE BLOOD COUNT 9.5 10^3/uL (4.3-11.0)
[2020-06-13 03:00] LABS: ABG BASE EXCESS 4.9 MMOL/L (-2.5-2.5); ABG OXYGEN SATURATION 78 % (94-100); ABG PCO2 66 MMHG (35-45); ABG PO2 55 MMHG (79-93); ABG TCO2 32.5 MMOL/L (21.0-31.0)
[2020-06-13 03:01] LABS: ALLENS TEST YES-POS; INSPIRED O2 40%; PATIENT TEMP 38.6; VENTILATOR YES
[2020-06-13 03:09] LABS: CHLORIDE 105 MMOL/L (98-107); POTASSIUM 4.6 MMOL/L (3.6-5.0); SODIUM 141 MMOL/L (135-145)
[2020-06-13 03:10] LABS: CALCIUM 7.7 MG/DL (8.5-10.1)
[2020-06-13 03:11] LABS: GLUCOSE 186 MG/DL (70-105)
[2020-06-13 03:12] LABS: CARBON DIOXIDE 26 MMOL/L (21-32)
[2020-06-13 03:14] LABS: PHOSPHORUS 2.9 MG/DL (2.3-4.7)
[2020-06-13 03:15] LABS: BUN/CREATININE RATIO 14; CREATININE SERUM 0.66 MG/DL (0.60-1.30); GFR ESTIMATED > 60
[2020-06-13 03:17] LABS: MAGNESIUM 2.5 MG/DL (1.6-2.4)
--- NOTE | 2020-06-13 03:43 | NUR ---
NOTIFIED OF PH 7.03. AND REMAINING ABG RESULTS. NEW ORDERS RECEIVED. RT NOTIFIED. Addendum: 06/13/20 at 0349 by DANIEL PEREZ RN NOTIFIED DR ELIAS OF PH 7.03
[2020-06-13] MEDS: inSUlin ASPART (NovoLOG) 1 UNIT/0.01 ML (CHARGE PER UNIT) SC SCH ×6 (04:02→23:45)
[2020-06-13] MEDS: MAGNESIUM 1 GM/100 ML IVPB 100 ML IV SCH (04:03)
[2020-06-13] MEDS: MIDAZOLAM DRIP PRE-MIX 100 ML IV SCH ×2 (04:48→14:59)
[2020-06-13] MEDS: dexAMETHasone 6 MG TAB (DECADRON) PO SCH (04:49)
[2020-06-13 05:05] LABS: ABG BASE EXCESS 4.2 MMOL/L (-2.5-2.5); ABG OXYGEN SATURATION 100 % (94-100); ABG PCO2 49 MMHG (35-45); ABG PH 7.39 (7.37-7.43); ABG PO2 207 MMHG (79-93); ABG TCO2 29.8 MMOL/L (21.0-31.0)
[2020-06-13 05:06] LABS: ALLENS TEST YES-POS; INSPIRED O2 80%; PATIENT TEMP 38.8; VENTILATOR YES
--- NOTE | 2020-06-13 05:12 | Pulmonary Progress Note ---
Subjective Time Seen by a Provider: 05:06 Subjective/Events-last exam Pt is sedated on vent. Sepsis Event Evaluation Height, Weight, BMI Height: 6'0.00" Weight: 360lbs. 0.0oz. 163.173616dt; 46.28 BMI Method: Focused Exam Lactate Level 06/12/20 17:10: Lactic Acid Level 1.06 Exam Exam Vital Signs Date Time Temp Pulse Resp B/P (MAP) Pulse Ox O2 Delivery O2 Flow Rate FiO2 06/13/20 04:48 73 06/13/20 04:08 38.5 Mechanical Ventilator 80.00 06/13/20 03:57 74 16 97 80 06/13/20 03:49 Mechanical Ventilator 80.00 06/13/20 03:24 74 16 97 40 06/13/20 02:13 74 06/13/20 02:13 74 06/13/20 02:00 38.6 74 16 127/81 (96) 97 Mechanical Ventilator 40.00 06/13/20 01:00 75 06/13/20 01:00 38.6 74 16 127/82 (97) 97 Mechanical Ventilator 40.00 06/13/20 00:20 38.6 95 Mechanical Ventilator 40.00 06/13/20 00:00 38.7 75 16 130/86 (101) 96 Mechanical Ventilator 40.00 06/12/20 23:53 38.7 06/12/20 23:22 77 06/12/20 23:21 38.7 06/12/20 23:20 77 06/12/20 23:18 38.7 97 Mechanical Ventilator 40.00 06/12/20 23:00 38.7 76 12 126/82 (97) 98 Mechanical Ventilator 50.00 06/12/20 22:00 38.6 76 122/81 (95) 97 Mechanical Ventilator 50.00 06/12/20 21:29 75 16 98 40 06/12/20 21:00 38.6 75 121/83 (96) 97 Mechanical Ventilator 50.00 06/12/20 20:45 38.6 06/12/20 20:18 80 06/12/20 20:17 80 06/12/20 20:14 38.9 06/12/20 20:13 80 06/12/20 20:11 80 06/12/20 20:11 80 06/12/20 20:00 39.0 77 119/78 (92) 97 Mechanical Ventilator 50.00 06/12/20 20:00 94 Mechanical Ventilator 50 06/12/20 19:00 79 06/12/20 19:00 39.1 79 129/86 (100) 98 Mechanical Ventilator 50.00 06/12/20 19:00 38.6 Mechanical Ventilator 50.00 06/12/20 18:55 75 16 98 50 06/12/20 18:00 39.5 80 15 145/95 (112) 97 Mechanical Ventilator 50.00 06/12/20 17:00 40.1 79 17 94 Mechanical Ventilator 50.00 06/12/20 17:00 40.1 06/12/20 16:12 Mechanical Ventilator 50.00 06/12/20 16:00 39.0 06/12/20 16:00 40.0 80 39 145/90 (108) 96 Mechanical Ventilator 60.00 06/12/20 15:37 39.1 06/12/20 15:28 39.1 06/12/20 15:00 79 11 149/95 (113) 98 Mechanical Ventilator 60.00 06/12/20 14:30 80 19 97 90 06/12/20 14:00 82 34 144/91 (108) 96 Mechanical Ventilator 60.00 06/12/20 13:38 Mechanical Ventilator 60.00 06/12/20 13:30 81 147/93 06/12/20 13:30 38.4 81 16 147/93 97 Mechanical Ventilator 40.00 06/12/20 13:00 80 48 149/93 (111) 97 Mechanical Ventilator 65.00 06/12/20 12:56 81 06/12/20 12:30 38.4 06/12/20 12:00 80 147/93 (111) 97 Mechanical Ventilator 65.00 06/12/20 11:47 38.6 06/12/20 11:45 39.0 77 16 132/88 91 Mechanical Ventilator 65.00 06/12/20 11:00 81 142/92 (109) 96 Mechanical Ventilator 65.00 06/12/20 10:46 77 16 132/88 06/12/20 10:09 77 16 91 85 06/12/20 10:00 78 14 132/88 (103) 96 Mechanical Ventilator 65.00 06/12/20 09:59 39.0 81 13 131/84 97 Mechanical Ventilator 40.00 06/12/20 09:00 81 13 125/83 (97) 97 Mechanical Ventilator 65.00 06/12/20 08:43 81 150/84 06/12/20 08:40 39.0 06/12/20 08:05 39.2 06/12/20 08:00 93 Mechanical Ventilator 65 06/12/20 08:00 81 12 127/73 (91) 95 Mechanical Ventilator 65.00 06/12/20 07:41 39.0 06/12/20 07:30 Mechanical Ventilator 65.00 06/12/20 07:00 81 10 133/76 (95) 98 Mechanical Ventilator 85.00 06/12/20 06:59 81 17 98 85 06/12/20 06:30 83 06/12/20 06:00 82 20 153/99 (117) 98 Mechanical Ventilator 85.00 06/12/20 05:48 80 I & O 06/13/20 07:00 Intake Total 3040 ml Output Total 2950 ml Balance 90 ml Height & Weight Height: 6'0.00" Weight: 360lbs. 0.0oz. 163.467450cz; 46.28 BMI Method: General Appearance: No Apparent Distress, Obese, Other (intubated and sedated) Respiratory: Lungs Clear, Normal Breath Sounds, No Respiratory Distress, Other (and mechanically ventilated) Cardiovascular: Regular Rate, Rhythm, No Edema, No Murmur Capillary Refill: Less Than 3 Seconds Gastrointestinal: normal bowel sounds, non tender, soft Extremity: Normal Inspection, No Pedal Edema Neurologic/Psychiatric: Other (sedated) Skin: Normal Color, Warm/Dry Results Lab Laboratory Tests 06/12/20 01:40 06/12/20 17:50 06/13/20 02:25 Assessment/Plan Assessment/Plan COVID with pneumonia and acute respiratory failure -Pt was intubated 06/10 -Vent 440/17/03 --- Decrease Fi02 down currently at 80% -Increase PEEP if unable to get Fi02 down to 60% or less. -Precedex, propofol 20, Fentanyl 400, and Versed 10mg, Precedex at 1.5 -D/C propofol secondary to triglycerides - TF per dietary recs -EICU managed through the weekend -SL IVF -Decadron -CVP - Proning -callejas cultures pending -Pt does not qualify for Remdesivir Hypertriglyceridemia -D/C propofol -Add Adivan pushes Persistent high fevers -Repeat callejas cultures -Add Eraxis for now DM s/p Acute DKA -Repeat beta hydroxybuterate and UA -Start D5 LR -Restart Levemier -SSI -10 units of Levemir -Hold home PO diabetic meds Leukocytosis - currently on Zosyn -Continue to monitor -Recheck PCT Morbid obesity DVT/GI ppx -Lovenox , pepcid NAT BRIGHT DO Jun 13, 2020 05:12
[2020-06-13] MEDS: KCL 20 MEQ TAB (K-DUR) PO SCH (06:07)
[2020-06-13] MEDS: POTASSIUM CL 10MEQ/50ML IVPB 50 ML IV SCH (06:07)
[2020-06-13 06:49] LABS: BILIRUBIN,URINE NEGATIVE (NEGATIVE); CLARITY,URINE CLEAR; COLOR,URINE YELLOW; GLUCOSE, URINE (UA) TRACE (NEGATIVE); KETONES,URINE NEGATIVE (NEGATIVE); LEUKOCYTE ESTERASE ,URINE NEGATIVE (NEGATIVE); NITRITE,URINE NEGATIVE (NEGATIVE); PH,URINE 5.5 (5-9); PROTEIN,URINE NEGATIVE (NEGATIVE)
[2020-06-13 06:58] LABS: AMORPHOUS SEDIMENT,UR RARE AMOR URATES /LPF; BACTERIA,URINE NEGATIVE /HPF; WBC,URINE 0-2 /HPF
[2020-06-13 06:59] LABS: YEAST,URINE FEW /HPF
[2020-06-13] MEDS ORDERED: ANIDULAFUNGIN INJECTION 200 MG in NS (IVPB) 250 ML IV ONE (07:00)
--- NOTE | 2020-06-13 07:32 | Diagnostic Imaging Report ---
HISTORY: Dyspnea. COMPARISON: 06/12/2020 TECHNIQUE: Frontal view of the chest. FINDINGS: Endotracheal tube is about 3 cm above the leidy. The tip of the enteric tube projects over the stomach. The right PICC line tip projects over the cavoatrial junction. Lung volumes are low. Airspace consolidation is seen in the lungs bilaterally. Overall aeration appears mildly improved. The cardiac silhouette is normal in size. IMPRESSION: 1. Low lung volumes with bilateral airspace opacities. Aeration is mildly improved compared to the prior exam. Dictated by: Dictated on workstation # [id number]
--- NOTE | 2020-06-13 08:00 | Physical Therapy Progress Note ---
Therapy Progress Note Patient remains sedated and intubated. PT will continue to monitor patient status. LYNDSAY PERRY PT Jun 13, 2020 08:00
[2020-06-13] MEDS: FAMOTIDINE 20 MG (PEPCID) TABLET PO SCH ×2 (08:16→20:03)
[2020-06-13] MEDS: PROPOFOL DRIP (ICU) 100 ML IV SCH ×4 (08:17→23:45)
[2020-06-13] MEDS: hydrALAZINE (APESOLINE) 20 MG/ML VIAL IV PRN ×2 (08:38→12:59)
[2020-06-13] MEDS: IBUPROFEN TABLET 200 MG TAB PO PRN ×2 (08:39→15:05)
[2020-06-13] MEDS: ACETAMINOPHEN 650 MG SUPP (TYLENOL) PR PRN (10:43)
[2020-06-13] MEDS: ENOXAPARIN 300 MG/3 ML (LOVENOX) MULTI-DOSE VIAL SQ SCH ×2 (11:26→22:46)
[2020-06-13] MEDS: LORazepam INJ 2 MG/ML (ATIVAN) VIAL IV PRN (11:34)
[2020-06-13] MEDS ORDERED: LABETALOL HCL 20 MG/4 ML VIAL IV NR (12:15)
--- NOTE | 2020-06-13 12:19 | NUR ---
DR BRIGHT NOTIFIED OF PT'S ELEVATED BLOOD PRESSURE NEW ORDERS RECEIVED, SEE ORDER HX.
[2020-06-13] MEDS: meTOprolol TARTRATE 25 MG (LOPRESSOR) TABLET PO SCH ×2 (12:26→20:03)
--- NOTE | 2020-06-13 14:23 | NUR ---
UPDATED PT'S MOM ON PT'S CONDITION.
--- NOTE | 2020-06-13 15:41 | NUR ---
Note pt currently receiving TF of Pulmocare via 60ml bolus feeds q4h, with 30ml free water flushes before/after bolus feed. Continue to increase TF by 30ml q8h as tolerated toward goal of 225ml bolus feeds q4h. Will continue to follow and reassess as pt needs, intake, and status change. Carl Trinh, MS RD LD [phone] cell
[2020-06-13] MEDS: D5 LR IV SOLUTION 1,000 ML IV SCH (20:15)
[2020-06-14] MEDS: MIDAZOLAM DRIP PRE-MIX 100 ML IV SCH ×3 (00:23→18:17)
[2020-06-14] MEDS: ACETAMINOPHEN 650 MG SUPP (TYLENOL) PR PRN ×2 (00:57→10:42)
[2020-06-14 01:47] VITALS: BP 122/79
[2020-06-14] MEDS: RT-ALBUTEROL INHALER HFA (VENTOLIN HFA) 18 GM IH SCH ×6 (01:47→22:41)
[2020-06-14] MEDS: fentaNYL DRIP PRE-MIX 250 ML IV SCH ×7 (01:57→22:40)
[2020-06-14] MEDS: DexMEDEtomidine PRE MIX 100 ML IV SCH ×13 (02:36→22:07)
[2020-06-14] MEDS: PIPERACILLIN/TAZOBACTAM (BULK) 4.5 GM in NS (IVPB) 100 ML IV SCH ×3 (02:42→18:18)
[2020-06-14 02:57] LABS: ABG BASE EXCESS 3.6 MMOL/L (-2.5-2.5); ABG OXYGEN SATURATION 95 % (94-100); ABG PCO2 54 MMHG (35-45); ABG PH 7.35 (7.37-7.43); ABG PO2 80 MMHG (79-93)
[2020-06-14 02:58] LABS: ALLENS TEST POSITIVE; BASOPHILS % (AUTO) 0 % (0-10); EOSINOPHILS # (AUTO) 0.3 10^3/uL (0.0-0.3); EOSINOPHILS % (AUTO) 4 % (0-10); HEMATOCRIT 35 % (40-54); HEMOGLOBIN 11.2 g/dL (13.3-17.7); INSPIRED O2 35; LYMPHOCYTES # (AUTO) 1.4 10^3/uL (1.0-4.0); LYMPHOCYTES % (AUTO) 18 % (12-44); MEAN CORPUSCULAR HEMOGLOBIN 29 pg (25-34); MEAN CORPUSCULAR HGB CONC 32 g/dL (32-36); MEAN CORPUSCULAR VOLUME 90 fL (80-99); MONOCYTES # (AUTO) 0.7 10^3/uL (0.0-1.0); MONOCYTES % (AUTO) 9 % (0-12); NEUTROPHILS # (AUTO) 5.2 10^3/uL (1.8-7.8); NEUTROPHILS % (AUTO) 66 % (42-75); PATIENT TEMP 38.6; PLATELET COUNT 355 10^3/uL (130-400); VENTILATOR YES; WHITE BLOOD COUNT 7.9 10^3/uL (4.3-11.0)
[2020-06-14 03:12] LABS: CHLORIDE 110 MMOL/L (98-107); POTASSIUM 4.4 MMOL/L (3.6-5.0); SODIUM 141 MMOL/L (135-145)
[2020-06-14 03:14] LABS: GLUCOSE 150 MG/DL (70-105); TRIGLYCERIDES 909 MG/DL (<150)
[2020-06-14 03:16] LABS: CARBON DIOXIDE 21 MMOL/L (21-32)
[2020-06-14 03:18] LABS: CREATININE SERUM 0.47 MG/DL (0.60-1.30); PHOSPHORUS 2.2 MG/DL (2.3-4.7)
[2020-06-14 03:19] LABS: BUN/CREATININE RATIO 13
[2020-06-14 03:20] LABS: MAGNESIUM 1.8 MG/DL (1.6-2.4)
[2020-06-14 03:26] LABS: GFR ESTIMATED > 60
[2020-06-14] MEDS: inSUlin ASPART (NovoLOG) 1 UNIT/0.01 ML (CHARGE PER UNIT) SC SCH ×6 (03:47→23:42)
[2020-06-14] MEDS: POTASSIUM CL 10MEQ/50ML IVPB 50 ML IV SCH (03:49)
[2020-06-14] MEDS: KCL 20 MEQ TAB (K-DUR) PO SCH (03:49)
[2020-06-14] MEDS: MAGNESIUM 1 GM/100 ML IVPB 100 ML IV SCH (03:49)
--- NOTE | 2020-06-14 04:28 | Pulmonary Progress Note ---
Subjective Time Seen by a Provider: 04:23 Subjective/Events-last exam Pt is sedated on vent. Sepsis Event Evaluation Height, Weight, BMI Height: 6'0.00" Weight: 360lbs. 0.0oz. 163.299278gu; 46.28 BMI Method: Focused Exam Lactate Level 06/12/20 17:10: Lactic Acid Level 1.06 06/13/20 06:15: Lactic Acid Level 0.99 Exam Exam Vital Signs Date Time Temp Pulse Resp B/P (MAP) Pulse Ox O2 Delivery O2 Flow Rate FiO2 06/14/20 04:00 38.6 82 16 125/78 (94) 95 Mechanical Ventilator 35.00 06/14/20 03:00 38.6 85 17 123/79 (91) 90 Mechanical Ventilator 35.00 06/14/20 02:37 125/78 06/14/20 02:36 87 06/14/20 02:00 38.6 28 124/79 (90) 93 Mechanical Ventilator 35.00 06/14/20 01:47 86 17 95 35 06/14/20 01:00 38.6 26 124/79 (91) 94 Mechanical Ventilator 35.00 06/14/20 00:53 61 06/14/20 00:23 Mechanical Ventilator 35.00 06/14/20 00:23 125/79 06/14/20 00:00 38.5 26 122/80 (91) 97 Mechanical Ventilator 45.00 06/13/20 23:15 124/81 06/13/20 23:14 86 06/13/20 23:00 38.5 28 124/81 (91) 97 Mechanical Ventilator 45.00 06/13/20 22:02 87 19 96 45 06/13/20 22:00 38.5 25 122/79 (91) 96 Mechanical Ventilator 45.00 06/13/20 21:00 38.5 88 26 114/77 (89) 97 Mechanical Ventilator 45.00 06/13/20 20:52 96 Mechanical Ventilator 45 06/13/20 20:07 122/79 06/13/20 20:03 88 06/13/20 20:01 38.5 87 17 122/79 (93) 97 Mechanical Ventilator 45.00 06/13/20 20:00 82 28 122/79 (93) 98 Mechanical Ventilator 45.00 06/13/20 19:00 88 06/13/20 19:00 89 18 120/76 (91) 98 Mechanical Ventilator 45.00 06/13/20 18:41 85 116/78 06/13/20 18:34 85 18 98 65 06/13/20 18:00 38.5 87 13 122/80 (94) 99 Mechanical Ventilator 60.00 06/13/20 17:00 38.6 86 13 117/81 (93) 99 Mechanical Ventilator 60.00 06/13/20 16:26 38.7 90 17 115/77 97 Mechanical Ventilator 65.00 06/13/20 16:00 38.7 88 16 115/79 (91) 98 Mechanical Ventilator 60.00 06/13/20 15:55 38.7 06/13/20 15:05 38.8 06/13/20 15:00 38.8 89 9 130/84 (99) 97 Mechanical Ventilator 60.00 06/13/20 14:59 90 17 130/80 06/13/20 14:49 90 17 97 65 06/13/20 14:00 38.7 90 15 130/82 (98) 98 Mechanical Ventilator 60.00 06/13/20 13:00 38.6 89 16 92/66 (75) 99 Mechanical Ventilator 60.00 06/13/20 13:00 38.9 77 16 186/122 95 Mechanical Ventilator 70.00 06/13/20 12:39 89 06/13/20 12:00 38.9 78 15 194/125 (148) 97 Mechanical Ventilator 60.00 06/13/20 11:31 38.9 06/13/20 11:00 38.7 77 16 186/122 (143) 95 Mechanical Ventilator 60.00 06/13/20 10:43 38.9 06/13/20 10:30 75 16 96 70 06/13/20 10:00 38.8 75 16 172/95 (120) 98 Mechanical Ventilator 60.00 06/13/20 09:36 38.8 73 16 165/106 97 Mechanical Ventilator 70.00 06/13/20 09:30 38.6 06/13/20 09:00 38.8 75 15 161/102 (121) 99 Mechanical Ventilator 60.00 06/13/20 08:39 38.8 06/13/20 08:35 94 Mechanical Ventilator 70 06/13/20 08:17 73 165/106 06/13/20 08:00 38.8 72 16 172/102 (125) 96 Mechanical Ventilator 60.00 06/13/20 07:04 73 16 97 70 06/13/20 07:00 38.7 73 28 165/106 (125) 95 Mechanical Ventilator 60.00 06/13/20 06:45 72 06/13/20 06:08 72 06/13/20 06:08 72 06/13/20 06:00 38.8 73 16 145/95 (112) 100 Mechanical Ventilator 60.00 06/13/20 06:00 Mechanical Ventilator 60.00 06/13/20 05:00 38.8 73 13 149/97 (114) 100 Mechanical Ventilator 80.00 06/13/20 04:48 73 I & O 06/14/20 07:00 Intake Total 885 ml Output Total 1425 ml Balance -540 ml Height & Weight Height: 6'0.00" Weight: 360lbs. 0.0oz. 163.870814kb; 46.28 BMI Method: General Appearance: No Apparent Distress, Obese, Other (intubated and sedated) Respiratory: Lungs Clear, Normal Breath Sounds, No Respiratory Distress, Other (and mechanically ventilated) Cardiovascular: Regular Rate, Rhythm, No Edema, No Murmur Capillary Refill: Less Than 3 Seconds Gastrointestinal: normal bowel sounds, non tender, soft Extremity: Normal Inspection, No Pedal Edema Neurologic/Psychiatric: Other (sedated) Skin: Normal Color, Warm/Dry Results Lab Laboratory Tests 06/12/20 17:50 06/13/20 02:25 06/14/20 02:45 Assessment/Plan Assessment/Plan COVID with pneumonia and acute respiratory failure -Pt was intubated 06/10 -Vent --- Decrease Fi02 down currently at 80% -Decrease PEEP to 8 -Precedex, propofol 20, Fentanyl 400, and Versed 10mg, Precedex at 1.5 - TF per dietary recs -EICU managed through the weekend -SL IVF -Decadron -CVP - Proning -callejas cultures pending -Pt does not qualify for Remdesivir Hypertriglyceridemia -D/C propofol -Add Adivan pushes Persistent high fevers -Repeat callejas cultures -Add Eraxis for now DM s/p Acute DKA -D5 LR -Restart Levemier -SSI -10 units of Levemir -Hold home PO diabetic meds Leukocytosis - currently on Zosyn -Continue to monitor -Recheck PCT Morbid obesity DVT/GI ppx -Jada , NAT Gracia DO Jun 14, 2020 04:28
[2020-06-14] MEDS: PROPOFOL DRIP (ICU) 100 ML IV SCH ×4 (04:43→21:53)
[2020-06-14] MEDS: LORazepam INJ 2 MG/ML (ATIVAN) VIAL IV PRN (04:43)
[2020-06-14] MEDS: dexAMETHasone 6 MG TAB (DECADRON) PO SCH (06:02)
--- NOTE | 2020-06-14 06:31 | Diagnostic Imaging Report ---
Indication: Tube placement. Infiltrates Portable chest shows normal heart size and vascularity. There are diffuse bilateral infiltrates similar to the 06/14/2020 study performed one day earlier. ET tube is in good position above the leidy. An OG-tube is in the stomach. IMPRESSION: The ET tube has been advanced since the prior study otherwise stable chest. Dictated by: Dictated on workstation # [id number]
[2020-06-14 06:37] VITALS: BP 119/75
--- NOTE | 2020-06-14 07:52 | Diagnostic Imaging Report ---
Indication: Respiratory distress. Dyspnea Portable chest shows normal heart size and vascularity. There are bilateral infiltrates which are worse compared to the 06/13/2020 study. There is no effusion or pneumothorax. The ET tube appears to have been pulled back slightly. This is at or just above the thoracic inlet. PICC line remains in place. IMPRESSION: Increasing bilateral infiltrates. Dictated by: Dictated on workstation # [id number]
[2020-06-14] MEDS ORDERED: SODIUM PHOSPHATE INJ 30 MM in NS (IVPB) 250 ML INJ ONE (08:00)
--- NOTE | 2020-06-14 08:22 | Physical Therapy Progress Note ---
Therapy Progress Note Patient remains sedated and intubated. PT will continue to monitor patient status. LYNDSAY PERRY PT Jun 14, 2020 08:21
[2020-06-14] MEDS: FAMOTIDINE 20 MG (PEPCID) TABLET PO SCH ×2 (08:27→20:07)
[2020-06-14] MEDS: meTOprolol TARTRATE 25 MG (LOPRESSOR) TABLET PO SCH ×2 (08:27→20:06)
[2020-06-14] MEDS: ANIDULAFUNGIN INJECTION 100 MG in NS (IVPB) 100 ML IV SCH (08:27)
[2020-06-14 10:19] VITALS: BP 135/76
[2020-06-14] MEDS: ENOXAPARIN 300 MG/3 ML (LOVENOX) MULTI-DOSE VIAL SQ SCH ×2 (10:29→23:44)
[2020-06-14] MEDS: D5 LR IV SOLUTION 1,000 ML IV SCH (10:45)
[2020-06-14 13:58] VITALS: BP 135/76
[2020-06-15] MEDS: D5 LR IV SOLUTION 1,000 ML IV SCH ×2 (00:22→14:44)
[2020-06-15] MEDS: PROPOFOL DRIP (ICU) 100 ML IV SCH ×4 (00:23→17:58)
[2020-06-15] MEDS: DexMEDEtomidine PRE MIX 100 ML IV SCH ×11 (01:53→21:58)
[2020-06-15] MEDS: fentaNYL DRIP PRE-MIX 250 ML IV SCH ×6 (02:31→23:53)
[2020-06-15] MEDS: PIPERACILLIN/TAZOBACTAM (BULK) 4.5 GM in NS (IVPB) 100 ML IV SCH ×2 (02:31→11:08)
[2020-06-15] MEDS: ACETAMINOPHEN 650 MG SUPP (TYLENOL) PR PRN ×2 (02:33→15:06)
[2020-06-15] MEDS: RT-ALBUTEROL INHALER HFA (VENTOLIN HFA) 18 GM IH SCH ×6 (02:51→22:34)
[2020-06-15 03:16] LABS: BASOPHILS % (AUTO) 0 % (0-10); EOSINOPHILS # (AUTO) 0.2 10^3/uL (0.0-0.3); EOSINOPHILS % (AUTO) 3 % (0-10); HEMATOCRIT 34 % (40-54); HEMOGLOBIN 10.6 g/dL (13.3-17.7); LYMPHOCYTES # (AUTO) 1.2 10^3/uL (1.0-4.0); LYMPHOCYTES % (AUTO) 17 % (12-44); MEAN CORPUSCULAR HEMOGLOBIN 28 pg (25-34); MEAN CORPUSCULAR HGB CONC 32 g/dL (32-36); MEAN CORPUSCULAR VOLUME 90 fL (80-99); MEAN PLATELET VOLUME 9.3 fL (9.0-12.2); MONOCYTES # (AUTO) 0.7 10^3/uL (0.0-1.0); MONOCYTES % (AUTO) 9 % (0-12); NEUTROPHILS # (AUTO) 5.1 10^3/uL (1.8-7.8); NEUTROPHILS % (AUTO) 69 % (42-75); PLATELET COUNT 333 10^3/uL (130-400); WHITE BLOOD COUNT 7.4 10^3/uL (4.3-11.0)
[2020-06-15 03:18] LABS: ABG BASE EXCESS 5.7 MMOL/L (-2.5-2.5); ABG OXYGEN SATURATION 97 % (94-100); ABG PCO2 57 MMHG (35-45); ABG PH 7.36 (7.37-7.43); ABG PO2 99 MMHG (79-93); ABG TCO2 32.2 MMOL/L (21.0-31.0)
[2020-06-15 03:20] LABS: ALLENS TEST YES-POS; INSPIRED O2 60%; PATIENT TEMP 38.7; VENTILATOR YES
[2020-06-15 03:30] LABS: CHLORIDE 110 MMOL/L (98-107); POTASSIUM 3.8 MMOL/L (3.6-5.0); SODIUM 142 MMOL/L (135-145)
[2020-06-15 03:31] LABS: CALCIUM 6.6 MG/DL (8.5-10.1)
[2020-06-15 03:32] LABS: GLUCOSE 139 MG/DL (70-105)
[2020-06-15 03:33] LABS: CARBON DIOXIDE 23 MMOL/L (21-32)
[2020-06-15 03:35] LABS: CREATININE SERUM 0.45 MG/DL (0.60-1.30); GFR ESTIMATED > 60; PHOSPHORUS 1.7 MG/DL (2.3-4.7)
[2020-06-15 03:36] LABS: BUN/CREATININE RATIO 13
[2020-06-15 03:38] LABS: MAGNESIUM 1.6 MG/DL (1.6-2.4)
[2020-06-15] MEDS: KCL 20 MEQ TAB (K-DUR) PO SCH (04:20)
[2020-06-15] MEDS: POTASSIUM CL 10MEQ/50ML IVPB 50 ML IV SCH (04:20)
[2020-06-15] MEDS: MAGNESIUM 1 GM/100 ML IVPB 100 ML IV SCH ×3 (04:20→06:44)
[2020-06-15] MEDS: inSUlin ASPART (NovoLOG) 1 UNIT/0.01 ML (CHARGE PER UNIT) SC SCH ×4 (04:21→23:31)
[2020-06-15] MEDS: MIDAZOLAM DRIP PRE-MIX 100 ML IV SCH ×2 (04:42→14:21)
--- NOTE | 2020-06-15 05:26 | Pulmonary Progress Note ---
Subjective Time Seen by a Provider: 05:20 Subjective/Events-last exam No complications noted. Sepsis Event Evaluation Height, Weight, BMI Height: 6'0.00" Weight: 360lbs. 0.0oz. 163.685005fs; 46.28 BMI Method: Focused Exam Lactate Level 06/12/20 17:10: Lactic Acid Level 1.06 06/13/20 06:15: Lactic Acid Level 0.99 Exam Exam Vital Signs Date Time Temp Pulse Resp B/P (MAP) Pulse Ox O2 Delivery O2 Flow Rate FiO2 06/15/20 05:12 124/79 06/15/20 05:11 84 06/15/20 05:00 38.5 84 10 124/79 (94) 96 Mechanical Ventilator 60.00 06/15/20 04:42 127/77 06/15/20 04:00 38.6 86 11 125/81 (96) 96 Mechanical Ventilator 60.00 06/15/20 03:00 38.7 89 17 128/80 (96) 92 Mechanical Ventilator 60.00 06/15/20 02:51 90 17 91 60 06/15/20 02:00 38.6 90 16 128/79 (95) 91 Mechanical Ventilator 60.00 06/15/20 01:53 132/82 06/15/20 01:53 90 06/15/20 01:04 88 06/15/20 01:00 38.6 93 16 132/78 (96) 92 Mechanical Ventilator 60.00 06/15/20 00:23 132/80 06/15/20 00:00 38.5 87 14 134/78 (96) 93 Mechanical Ventilator 60.00 06/14/20 23:00 38.5 87 16 131/80 (97) 93 Mechanical Ventilator 60.00 06/14/20 22:42 88 17 90 60 06/14/20 22:07 132/80 06/14/20 22:07 86 06/14/20 22:00 38.4 86 17 132/80 (97) 91 Mechanical Ventilator 60.00 06/14/20 21:00 38.4 84 16 125/83 (97) 91 Mechanical Ventilator 60.00 06/14/20 20:20 92 Mechanical Ventilator 60 06/14/20 20:14 84 17 93 60 06/14/20 20:05 38.3 84 17 131/83 (99) 93 Mechanical Ventilator 60.00 06/14/20 20:00 38.3 84 27 135/83 (100) 93 Mechanical Ventilator 60.00 06/14/20 19:10 84 06/14/20 19:00 38.3 84 27 129/81 (97) 93 Mechanical Ventilator 60.00 06/14/20 18:17 85 16 131/80 06/14/20 18:17 38.4 85 16 131/80 93 Mechanical Ventilator 60.00 06/14/20 18:16 38.4 85 16 131/80 93 Mechanical Ventilator 60.00 06/14/20 18:00 38.4 85 44 131/80 (97) 93 Mechanical Ventilator 60.00 06/14/20 17:00 38.4 85 33 132/82 (99) 94 Mechanical Ventilator 60.00 06/14/20 16:00 38.1 84 15 130/81 (97) 94 Mechanical Ventilator 60.00 06/14/20 15:12 38.3 83 16 118/75 92 Mechanical Ventilator 60.00 06/14/20 15:11 38.3 84 16 118/75 92 Mechanical Ventilator 60.00 06/14/20 15:10 84 118/75 06/14/20 15:00 38.4 84 17 118/75 (89) 93 Mechanical Ventilator 60.00 06/14/20 14:00 38.2 84 15 126/76 (93) 93 Mechanical Ventilator 60.00 06/14/20 13:58 80 16 95 60 06/14/20 13:00 38.1 84 15 128/81 (97) 94 Mechanical Ventilator 60.00 06/14/20 12:44 84 06/14/20 12:12 38.1 90 16 131/83 94 Mechanical Ventilator 60.00 06/14/20 12:11 38.1 90 16 131/83 94 Mechanical Ventilator 60.00 06/14/20 12:00 38.1 85 23 131/83 (99) 95 Mechanical Ventilator 60.00 06/14/20 11:44 38.1 06/14/20 11:00 38.0 90 14 133/79 (97) 92 Mechanical Ventilator 60.00 06/14/20 10:42 38.6 06/14/20 10:19 80 16 95 60 06/14/20 10:00 38.4 80 15 132/79 (96) 95 Mechanical Ventilator 60.00 06/14/20 09:05 38.2 80 16 132/78 95 Mechanical Ventilator 60.00 06/14/20 09:04 38.2 80 16 132/78 95 Mechanical Ventilator 60.00 06/14/20 09:00 38.2 80 16 132/78 (96) 95 Mechanical Ventilator 60.00 06/14/20 08:28 80 16 124/75 06/14/20 08:00 38.1 80 15 125/76 (92) 94 Mechanical Ventilator 60.00 06/14/20 08:00 94 60 06/14/20 07:00 37.9 79 16 123/78 (93) 93 Mechanical Ventilator 60.00 06/14/20 07:00 Mechanical Ventilator 60.00 06/14/20 06:37 78 17 92 60 06/14/20 06:37 79 06/14/20 06:08 79 06/14/20 06:00 38.3 79 16 127/76 (93) 95 Mechanical Ventilator 35.00 06/14/20 05:57 79 I & O 06/15/20 07:00 Intake Total 1890 ml Output Total 2000 ml Balance -110 ml Height & Weight Height: 6'0.00" Weight: 360lbs. 0.0oz. 163.679243zg; 46.28 BMI Method: General Appearance: No Apparent Distress, Obese, Other (intubated and sedated) Respiratory: Lungs Clear, Normal Breath Sounds, No Respiratory Distress, Other (and mechanically ventilated) Cardiovascular: Regular Rate, Rhythm, No Edema, No Murmur Capillary Refill: Less Than 3 Seconds Gastrointestinal: normal bowel sounds, non tender, soft Extremity: Normal Inspection, No Pedal Edema Neurologic/Psychiatric: Other (sedated) Skin: Normal Color, Warm/Dry Results Lab Laboratory Tests 06/14/20 02:45 06/15/20 02:40 Assessment/Plan Assessment/Plan COVID with pneumonia and acute respiratory failure -Pt was intubated 06/10 -Vent 440/17/03 --- Decrease Fi02 down currently at 60% -Precedex 1.5, propofol 10, Fentanyl 300, and Versed 10mg, - TF per dietary recs -EICU managed through the weekend -IVF currently D5LR 75cc/hr -- urine is concentrated -Decadron -CVP - Proning -callejas cultures pending -Pt does not qualify for Remdesivir Hypertriglyceridemia -improving Persistent high fevers -Repeat callejas cultures -Zosyn add Vanco secondary to persistent fevers. -Add Eraxis for now DM s/p Acute DKA -D5 LR Levemier -SSI -10 units of Levemir -Hold home PO diabetic meds Leukocytosis - currently on Zosyn -Continue to monitor -Recheck PCT Morbid obesity DVT/GI ppx -Lovenox , pepcid NAT BRIGHT DO Jun 15, 2020 05:26
[2020-06-15] MEDS: dexAMETHasone 6 MG TAB (DECADRON) PO SCH (06:35)
[2020-06-15 07:14] VITALS: BP 127/80
[2020-06-15] MEDS ORDERED: PHARMACY TO DOSE IV SCH (07:15)
--- NOTE | 2020-06-15 07:58 | Physical Therapy Progress Note ---
Therapy Progress Note Patient remains sedated and intubated. PT will continue to monitor patient status. LYNDSAY PERRY PT Jun 15, 2020 07:58
--- NOTE | 2020-06-15 07:59 | NUR ---
VANCOMYCIN DOSING SCR 0.45; ADJ BW 106 KG; CRCL >140; BOLUS VANC 2500 MG THEN VANC 2 GM Q8H CHECK TROUGH LEVEL 06/16 0700 HOLD DOSE AND CONTACT PHARMACY IF LEVEL IS GREATER THAN 20 OR LESS THAN 10
[2020-06-15] MEDS ORDERED: VANCOMYCIN INJECTION 2,500 MG in NS IV 500 ML 500 ML IV NR (08:00)
[2020-06-15] MEDS: FAMOTIDINE 20 MG (PEPCID) TABLET PO SCH ×2 (08:27→20:01)
[2020-06-15] MEDS: meTOprolol TARTRATE 25 MG (LOPRESSOR) TABLET PO SCH ×2 (08:27→20:01)
[2020-06-15] MEDS: ANIDULAFUNGIN INJECTION 100 MG in NS (IVPB) 100 ML IV SCH (08:27)
--- NOTE | 2020-06-15 08:58 | Diagnostic Imaging Report ---
EXAMINATION: Chest radiograph, portable AP view. DATE: 06/15/2020 4:35 AM INDICATION: 34-year-old male, dyspnea. COMPARISON: June 14, 2020. FINDINGS: The endotracheal tube is approximately 5.4 cm above the leidy. The nasogastric tube is at the level of the stomach. The right-sided venous line is at the level of the mid SVC. There is multifocal bilateral lung consolidation which is unchanged. The heart size and mediastinal contours are unchanged. Lung volumes are low. IMPRESSION: 1. Unchanged low lung volumes and nonspecific multifocal bilateral lung consolidation. 2. Support lines and tubes as above. Dictated by: Dictated on workstation # [id number]
[2020-06-15] MEDS ORDERED: POTASSIUM PHOSPHATE INJ 30 MM in NS (IVPB) 250 ML IV ONE (09:00)
[2020-06-15 10:37] VITALS: BP 140/96
[2020-06-15] MEDS: ENOXAPARIN 300 MG/3 ML (LOVENOX) MULTI-DOSE VIAL SQ SCH ×2 (11:08→23:53)
[2020-06-15 14:47] VITALS: BP 146/92
[2020-06-15] MEDS: VANCOMYCIN 2000 MG/NS 500 ML IVPB IV SCH ×4 (15:06→23:53)
--- NOTE | 2020-06-15 17:46 | NUR ---
Note pt currently having issues with TF tolerance. Note TF is being held at this time. Will continue to follow and reassess as pt needs, intake, and status change. Carl Trinh, MS RD LD
[2020-06-15 18:56] VITALS: BP 153/93
[2020-06-15 22:34] VITALS: BP 146/91
[2020-06-16] MEDS: MIDAZOLAM DRIP PRE-MIX 100 ML IV SCH ×3 (00:25→17:31)
[2020-06-16] MEDS: DexMEDEtomidine PRE MIX 100 ML IV SCH ×9 (01:21→22:56)
[2020-06-16] MEDS: PROPOFOL DRIP (ICU) 100 ML IV SCH ×5 (01:21→22:37)
[2020-06-16] MEDS: RT-ALBUTEROL INHALER HFA (VENTOLIN HFA) 18 GM IH SCH ×6 (02:36→22:27)
[2020-06-16 02:37] VITALS: BP 145/80
[2020-06-16 02:57] LABS: BASOPHILS % (AUTO) 0 % (0-10); EOSINOPHILS # (AUTO) 0.1 10^3/uL (0.0-0.3); EOSINOPHILS % (AUTO) 1 % (0-10); HEMATOCRIT 32 % (40-54); HEMOGLOBIN 10.2 g/dL (13.3-17.7); LYMPHOCYTES # (AUTO) 1.2 10^3/uL (1.0-4.0); LYMPHOCYTES % (AUTO) 17 % (12-44); MEAN CORPUSCULAR HEMOGLOBIN 29 pg (25-34); MEAN CORPUSCULAR HGB CONC 32 g/dL (32-36); MEAN CORPUSCULAR VOLUME 89 fL (80-99); MEAN PLATELET VOLUME 9.2 fL (9.0-12.2); MONOCYTES # (AUTO) 0.7 10^3/uL (0.0-1.0); MONOCYTES % (AUTO) 10 % (0-12); NEUTROPHILS % (AUTO) 70 % (42-75); PLATELET COUNT 323 10^3/uL (130-400); WHITE BLOOD COUNT 7.1 10^3/uL (4.3-11.0)
[2020-06-16 02:58] LABS: ABG BASE EXCESS 4.2 MMOL/L (-2.5-2.5); ABG OXYGEN SATURATION 99 % (94-100); ABG PCO2 45 MMHG (35-45); ABG PH 7.42 (7.37-7.43); ABG PO2 135 MMHG (79-93); ABG TCO2 29.4 MMOL/L (21.0-31.0)
[2020-06-16 02:59] LABS: ALLENS TEST YES-POS; INSPIRED O2 50%; VENTILATOR YES
[2020-06-16 03:00] LABS: PATIENT TEMP 38.5
[2020-06-16 03:16] LABS: BUN/CREATININE RATIO 17; CALCIUM 6.6 MG/DL (8.5-10.1); CARBON DIOXIDE 21 MMOL/L (21-32); CHLORIDE 112 MMOL/L (98-107); CREATININE SERUM 0.47 MG/DL (0.60-1.30); GFR ESTIMATED > 60; GLUCOSE 148 MG/DL (70-105); MAGNESIUM 1.6 MG/DL (1.6-2.4); PHOSPHORUS 1.7 MG/DL (2.3-4.7); POTASSIUM 3.6 MMOL/L (3.6-5.0); SODIUM 143 MMOL/L (135-145); TRIGLYCERIDES 189 MG/DL (<150)
[2020-06-16] MEDS: D5 LR IV SOLUTION 1,000 ML IV SCH ×3 (04:34→17:31)
[2020-06-16] MEDS: fentaNYL DRIP PRE-MIX 250 ML IV SCH ×5 (04:34→22:56)
[2020-06-16] MEDS: inSUlin ASPART (NovoLOG) 1 UNIT/0.01 ML (CHARGE PER UNIT) SC SCH ×3 (04:52→17:19)
[2020-06-16] MEDS: KCL 20 MEQ TAB (K-DUR) PO SCH (04:52)
[2020-06-16] MEDS: POTASSIUM CL 10MEQ/50ML IVPB 50 ML IV SCH ×3 (04:52→06:16)
[2020-06-16] MEDS: MAGNESIUM 1 GM/100 ML IVPB 100 ML IV SCH ×3 (04:52→06:16)
[2020-06-16] MEDS: dexAMETHasone 6 MG TAB (DECADRON) PO SCH (06:33)
[2020-06-16] MEDS ORDERED: TROUGH ORDER-PHARMACY XX NR (07:00)
[2020-06-16 07:38] VITALS: BP 120/80
--- NOTE | 2020-06-16 07:52 | NUR ---
PTD VANCOMYCIN LABS: SCR 0.47, VANCOMYCIN TORUGH 7.6 PLAN: CONTINUE WITH CURRENT DOSING 2GRAMS IV Q8HR, WILL RECHECK A TROUGH ON 06/17 AND ADJUST IF NEEDED. Addendum: 06/17/20 at 1439 by GILLIAN COOK [facility] Today's trough, 06/17 @ 07: 8ug/ml. Dose change to 2250mg every 8 hours. Repeat trough on Friday, 06/19 @ 07.
--- NOTE | 2020-06-16 07:54 | Diagnostic Imaging Report ---
EXAMINATION: Chest 1 view HISTORY: COVID positive. Intubated. Followup. COMPARISON: 06/15/2020. FINDINGS: Stable configuration of the endotracheal tube, enteric tube, and right PICC. Unchanged diffuse patchy opacities are seen throughout the lungs. No large pleural effusion or pneumothorax. Stable cardiac silhouette. IMPRESSION: 1. Stable chest with stable diffuse opacities throughout the lungs. 2. Stable support devices. Dictated by: Dictated on workstation # [id number]
--- NOTE | 2020-06-16 08:06 | Physical Therapy Progress Note ---
Therapy Progress Note Patient remains sedated and intubated. PT will continue to monitor patient status. LYNDSAY PERRY PT Jun 16, 2020 08:06
[2020-06-16] MEDS: VANCOMYCIN 2000 MG/NS 500 ML IVPB IV SCH ×6 (08:14→23:00)
[2020-06-16] MEDS: meTOprolol TARTRATE 25 MG (LOPRESSOR) TABLET PO SCH ×2 (08:14→22:37)
[2020-06-16] MEDS: FAMOTIDINE 20 MG (PEPCID) TABLET PO SCH ×2 (08:14→22:37)
[2020-06-16] MEDS: ANIDULAFUNGIN INJECTION 100 MG in NS (IVPB) 100 ML IV SCH (08:14)
[2020-06-16 10:08] LABS: BILIRUBIN,DIRECT 0.2 MG/DL (0.0-0.3); BILIRUBIN,INDIRECT 0.2 MG/DL; BILIRUBIN,TOTAL 0.4 MG/DL (0.1-1.0); TOTAL PROTEIN 4.6 GM/DL (6.4-8.2)
--- NOTE | 2020-06-16 11:37 | Physical Therapy Progress Note ---
Therapy Progress Note PROM to bilateral UE and LE. O2 stayed in 90's the whole time. Patient has some tightness developing in both ankles but can still achieve neutral dorsiflexion with stretching. LYNDSAY PERRY PT Jun 16, 2020 11:37
--- NOTE | 2020-06-16 11:43 | Diagnostic Imaging Report ---
INDICATION: Increased residuals COMPARISON: 06/12/2020 TECHNIQUE: 2 radiographs of the abdomen dated 06/16/2020. FINDINGS: Catheter versus monitor is again noted overlying the midline pelvis. Significant apex right curvature of the visualized spine is noted with associated degenerative changes. No significant dilated loops of large or small bowel. No free air. The upper abdomen is excluded from the [id number] on these 2 images. IMPRESSION: Upper abdomen is excluded from the [id number] on these images. Nonobstructive bowel gas pattern without free air. Additional similar findings as above. Dictated by: Dictated on workstation # [id number]
[2020-06-16] MEDS: ENOXAPARIN 300 MG/3 ML (LOVENOX) MULTI-DOSE VIAL SQ SCH ×2 (12:00→22:54)
--- NOTE | 2020-06-16 15:05 | NUR ---
Note pt is currently having high gastric residuals and TF intolerance issues. Note TF is currently on hold at this time. Will continue to follow and reassess as pt needs, intake, and status change. Carl Trinh, MS RD LD [phone] cell
--- NOTE | 2020-06-16 15:34 | Progress Note - Hospitalist ---
Subjective HPI/CC On Admission Date Seen by Provider: Jun 16, 2020 Time Seen by Provider: 14:00 Subjective/Events-last exam Patient is currently intubated on an FiO2 of 35%, peep 10 and is hemodynamically stable. He does have a large herpetic lesion on his right lip. He remains febrile with temperatures around 38 C. White count is normal. Objective Exam Vital Signs Vital Signs Date Time Temp Pulse Resp B/P (MAP) Pulse Ox O2 Delivery O2 Flow Rate FiO2 06/18/20 14:07 81 06/18/20 14:00 28 149/90 (109) 92 Mechanical Ventilator 50.00 06/18/20 13:46 100 06/18/20 07:48 37.9 Capillary Refill : Less Than 3 Seconds General Appearance: Obese HEENT: Other (Left large herpetic lesion) Neck: Limited Range of Motion Respiratory: Lungs Clear Cardiovascular: Regular Rate, Rhythm, No Gallop, No Murmur Gastrointestinal: Distended Extremity: Pedal Edema Neurologic/Psychiatric: Other Results/Procedures Lab Laboratory Tests 06/18/20 02:45 Patient resulted labs reviewed. Imaging: Reviewed Imaging Report Assessment/Plan Assessment and Plan Assess & Plan/Chief Complaint Respiratory failure secondary to Covid pneumonia. Day #7 Decadron Fever of uncertain etiology we will add acyclovir to vancomycin, Eraxis Herpetic lesion Morbid obesity Type 2 diabetes Critical Care Ventilator Management Clinical Quality Measures DVT/VTE Risk/Contraindication: Risk Factor Score Per Nursin RFS Level Per Nursing on Admit: 4+=Very High CHI TRAYLOR MD Jun 16, 2020 15:34
[2020-06-16 15:57] VITALS: BP 113/74
[2020-06-16] MEDS: ACYCLOVIR INJECTION 500 MG in NS (IVPB) 100 ML IV SCH (18:01)
[2020-06-16 19:02] VITALS: BP 135/98
[2020-06-16 22:27] VITALS: BP 136/81
--- NOTE | 2020-06-17 | NUR ---
Pt desating to lower 80's, pt suctioned, repositioned, etc, TeleICU contacted, orders received to increase PEEP to 10.
[2020-06-17] MEDS: inSUlin ASPART (NovoLOG) 1 UNIT/0.01 ML (CHARGE PER UNIT) SC SCH ×4 (00:18→17:19)
[2020-06-17] MEDS: ACYCLOVIR INJECTION 500 MG in NS (IVPB) 100 ML IV SCH ×3 (01:03→17:35)
[2020-06-17] MEDS: DexMEDEtomidine PRE MIX 100 ML IV SCH ×9 (01:04→21:02)
[2020-06-17] MEDS: fentaNYL DRIP PRE-MIX 250 ML IV SCH ×6 (02:35→21:01)
[2020-06-17] MEDS: MIDAZOLAM DRIP PRE-MIX 100 ML IV SCH ×3 (02:37→21:01)
[2020-06-17 03:05] LABS: ABG BASE EXCESS 2.6 MMOL/L (-2.5-2.5); ABG OXYGEN SATURATION 91 % (94-100); ABG PCO2 48 MMHG (35-45); ABG PH 7.38 (7.37-7.43); ABG PO2 66 MMHG (79-93); ABG TCO2 28.5 MMOL/L (21.0-31.0)
[2020-06-17] MEDS: RT-ALBUTEROL INHALER HFA (VENTOLIN HFA) 18 GM IH SCH ×6 (03:07→21:37)
[2020-06-17 03:08] LABS: ALLENS TEST POSITIVE; BASOPHILS % (AUTO) 0 % (0-10); EOSINOPHILS # (AUTO) 0.1 10^3/uL (0.0-0.3); EOSINOPHILS % (AUTO) 1 % (0-10); HEMATOCRIT 30 % (40-54); HEMOGLOBIN 9.7 g/dL (13.3-17.7); INSPIRED O2 100; LYMPHOCYTES # (AUTO) 1.4 10^3/uL (1.0-4.0); LYMPHOCYTES % (AUTO) 12 % (12-44); MEAN CORPUSCULAR HEMOGLOBIN 29 pg (25-34); MEAN CORPUSCULAR HGB CONC 32 g/dL (32-36); MEAN CORPUSCULAR VOLUME 90 fL (80-99); MEAN PLATELET VOLUME 9.4 fL (9.0-12.2); MONOCYTES # (AUTO) 0.8 10^3/uL (0.0-1.0); MONOCYTES % (AUTO) 8 % (0-12); NEUTROPHILS # (AUTO) 8.7 10^3/uL (1.8-7.8); NEUTROPHILS % (AUTO) 78 % (42-75); PATIENT TEMP 37.9; PLATELET COUNT 368 10^3/uL (130-400); VENTILATOR YES; WHITE BLOOD COUNT 11.1 10^3/uL (4.3-11.0)
[2020-06-17 03:11] VITALS: BP 136/81
[2020-06-17 03:23] LABS: CHLORIDE 114 MMOL/L (98-107); POTASSIUM 3.3 MMOL/L (3.6-5.0); SODIUM 143 MMOL/L (135-145)
[2020-06-17 03:24] LABS: CALCIUM 6.4 MG/DL (8.5-10.1)
[2020-06-17 03:25] LABS: GLUCOSE 140 MG/DL (70-105)
[2020-06-17 03:27] LABS: CARBON DIOXIDE 22 MMOL/L (21-32)
[2020-06-17] MEDS: PROPOFOL DRIP (ICU) 100 ML IV SCH ×4 (03:27→19:41)
[2020-06-17 03:29] LABS: CREATININE SERUM 0.45 MG/DL (0.60-1.30); GFR ESTIMATED > 60; PHOSPHORUS 1.8 MG/DL (2.3-4.7)
[2020-06-17 03:30] LABS: BUN/CREATININE RATIO 20
[2020-06-17 03:31] LABS: MAGNESIUM 1.6 MG/DL (1.6-2.4)
--- NOTE | 2020-06-17 03:43 | NUR ---
Pt continues with low o2 sats, now 83%, TeleICU contacted, orders received, increase PEEP to 12, see eMAR.
[2020-06-17] MEDS: MAGNESIUM 1 GM/100 ML IVPB 100 ML IV SCH ×2 (03:52→04:03)
[2020-06-17] MEDS: POTASSIUM CL 10MEQ/50ML IVPB 50 ML IV SCH ×4 (03:52→05:59)
[2020-06-17] MEDS: dexAMETHasone 6 MG TAB (DECADRON) PO SCH (06:01)
[2020-06-17] MEDS: KCL 20 MEQ TAB (K-DUR) PO SCH (06:01)
[2020-06-17 06:51] VITALS: BP 128/87
[2020-06-17] MEDS ORDERED: TROUGH ORDER-PHARMACY XX ONE (07:00)
[2020-06-17] MEDS: VANCOMYCIN 2000 MG/NS 500 ML IVPB IV SCH ×2 (08:12)
[2020-06-17] MEDS: meTOprolol TARTRATE 25 MG (LOPRESSOR) TABLET PO SCH ×2 (08:12→20:08)
--- NOTE | 2020-06-17 08:54 | Diagnostic Imaging Report ---
Clinical indications: Follow-up daily chest x-ray. COVID positive. Patient on ventilator. IC management. Exam: Portable chest x-ray upright view. Comparisons: Chest x-ray dated 06/16/2020. Findings: Of note, the right lateral aspect of the hemithorax is not completely imaged on this exam. Again seen diffuse bilateral lung infiltrates which has progressed in right midlung field region. Cardiac silhouette is upper limits of normal for portable projection. Pulmonary vasculature is obscured. Right PICC line again seen in stable position. ET tube seen in stable good position with tip roughly at the C2-C3 level. Feeding tube is noted, but its distal portion not completely visualized due to patient body habitus and portable x-ray requisition. The remainder of this exam shows no significant interval change compared to the prior study of comparison. IMPRESSION: 1: There is bilateral lung infiltrates which has progressed in the right midlung field region. 2: The remainder of this exam shows no significant interval change compared to the prior study of comparison, as visualized. Dictated by: Dictated on workstation # [id number]
[2020-06-17] MEDS: FAMOTIDINE 20 MG (PEPCID) TABLET PO SCH ×2 (09:44→20:08)
[2020-06-17] MEDS: ANIDULAFUNGIN INJECTION 100 MG in NS (IVPB) 100 ML IV SCH (09:44)
[2020-06-17] MEDS: ENOXAPARIN 300 MG/3 ML (LOVENOX) MULTI-DOSE VIAL SQ SCH (10:11)
--- NOTE | 2020-06-17 10:20 | Progress Note - Hospitalist ---
ROSA ENNIS, 06/17/20 1020: Subjective HPI/CC On Admission Time Seen by Provider: 09:40 Subjective/Events-last exam Mr. Payan was seen and examined by Dr. Traylor in the ICU for acute hypoxic respiratory failure secondary to COVID19 infection. He is currently mechanically ventilated on pressure control with FiO2 100%, PEEP 12, TV 500, inspiratory/expiratory ratio 1/1.3, pressure support of 15, peak pressure 28. Sedated with versed, fentanyl, propofol. Precedex added today for proning. ABG this am revealed pH 7.38, pCO2 48, pO2 66. Objective Exam Vital Signs Vital Signs Date Time Temp Pulse Resp B/P (MAP) Pulse Ox O2 Delivery O2 Flow Rate FiO2 06/17/20 10:00 38.1 83 19 136/87 (103) 92 Mechanical Ventilator 100.00 06/17/20 06:51 100 Capillary Refill : Less Than 3 Seconds General Appearance: Obese, Other (intubated) Respiratory: Lungs Clear, Normal Breath Sounds Cardiovascular: Regular Rate, Rhythm, No Murmur, Normal Peripheral Pulses Gastrointestinal: Soft Results/Procedures Lab Laboratory Tests 06/17/20 02:44 Patient resulted labs reviewed. Imaging: Reviewed Imaging Report Assessment/Plan Assessment and Plan Assess & Plan/Chief Complaint Acute hypoxic respiratory failure secondary to COVID pneumonia * Intubated 06/10 * Episode of desaturation overnight * On pressure control, pressure support 15 * FiO2 100%, PEEP 12, TV 500, peak pressure 28, inspiratory/expiratory ratio 1/1.3 * Proning today 06/17 * Day 8 Decadron * Not a candidate for remdesivir * Convalescent plasma 06/09 Fever of uncertain etiology Herpetic lesion * Continue acyclovir to vancomycin, Eraxis Morbid obesity Type 2 diabetes * Levemir 10unit HS * Sliding scale A Diet: npo GI/DVT ppx: pepcid; lovenox FULL CODE Critical Care: Critically Ill Patient Clinical Quality Measures DVT/VTE Risk/Contraindication: Risk Factor Score Per Nursin RFS Level Per Nursing on Admit: 4+=Very High CHI TRAYLOR MD 06/17/20 1400: Assessment/Plan Assessment and Plan Critical Care: Ventilator Management Supervisory-Addendum Brief Verification & Attestation Participated in pt care: history, MDM, physical Personally performed: exam, history, MDM Care discussed with: Medical Student, other (Respiratory therapy eICU nurse staff) Procedures: n/a Results interpretation: Verified all documentation Verification and Attestation of Medical Student E/M Service A medical student performed and documented this service in my presence. I reviewed and verified all information documented by the medical student and made modifications to such information, when appropriate. I personally performed the physical exam and medical decision making. Chi Traylor, Jun 17, 2020,14:00 Patient has been on pressure control ventilation modality with peak pressures of around 24. The patient had to be bagged for a long time yesterday before pressure control was successful in increasing his oxygenation. Discussed at length with respiratory therapy and eICU these ventilator settings and at this juncture the patient is stable with acceptable peak pressures so we will continue in this modality for now. ROSA ENNIS, Jun 17, 2020 10:20 CHI TRAYLOR MD Jun 17, 2020 14:00
[2020-06-17] MEDS: aCETylcysteine 20% (MUCOMYST) 30ML SOLN VIAL INH SCH ×3 (10:24→21:37)
--- NOTE | 2020-06-17 11:13 | Physical Therapy Progress Note ---
Therapy Progress Note Pt remains intubated this date. Will continue to follow and initiate PT services when pt medically able to actively participate. VINAY PADILLA PT Jun 17, 2020 11:13
[2020-06-17] MEDS: D5 LR IV SOLUTION 1,000 ML IV SCH (12:49)
[2020-06-17] MEDS ORDERED: VANCOMYCIN INJECTION 2,250 MG in NS IV 500 ML 500 ML IV SCH (14:30)
[2020-06-17 14:41] VITALS: BP 141/94
[2020-06-17] MEDS: VANCOMYCIN INJECTION 2,250 MG in NS IV 500 ML 500 ML IV SCH (16:40)
[2020-06-17 18:52] VITALS: BP 143/91
[2020-06-17] MEDS: ACETAMINOPHEN 650 MG SUPP (TYLENOL) PR PRN (20:09)
--- NOTE | 2020-06-17 20:53 | NUR ---
SPOKE TO DAO. GAVE UPDATE ON CONDITION AT THIS TIME. ANSWERED ALL QUESTIONS.
[2020-06-17 21:37] VITALS: BP 144/95
[2020-06-18] VITALS (8 sets, daily range): BP systolic 133–174; BP diastolic 72–104
[2020-06-18] MEDS: ENOXAPARIN 300 MG/3 ML (LOVENOX) MULTI-DOSE VIAL SQ SCH ×3 (00:59→23:32)
[2020-06-18] MEDS: ACYCLOVIR INJECTION 500 MG in NS (IVPB) 100 ML IV SCH ×3 (01:00→17:18)
[2020-06-18] MEDS: inSUlin ASPART (NovoLOG) 1 UNIT/0.01 ML (CHARGE PER UNIT) SC SCH ×5 (01:00→23:26)
[2020-06-18] MEDS: VANCOMYCIN INJECTION 2,250 MG in NS IV 500 ML 500 ML IV SCH ×4 (01:00→23:19)
[2020-06-18] MEDS: RT-ALBUTEROL INHALER HFA (VENTOLIN HFA) 18 GM IH SCH ×6 (01:40→21:38)
[2020-06-18] MEDS: aCETylcysteine 20% (MUCOMYST) 30ML SOLN VIAL INH SCH ×4 (01:40→21:38)
[2020-06-18 02:56] LABS: BASOPHILS % (AUTO) 0 % (0-10); EOSINOPHILS # (AUTO) 0.1 10^3/uL (0.0-0.3); EOSINOPHILS % (AUTO) 1 % (0-10); HEMATOCRIT 30 % (40-54); HEMOGLOBIN 9.7 g/dL (13.3-17.7); LYMPHOCYTES # (AUTO) 1.3 10^3/uL (1.0-4.0); LYMPHOCYTES % (AUTO) 15 % (12-44); MEAN CORPUSCULAR HEMOGLOBIN 28 pg (25-34); MEAN CORPUSCULAR HGB CONC 32 g/dL (32-36); MEAN CORPUSCULAR VOLUME 88 fL (80-99); MEAN PLATELET VOLUME 9.5 fL (9.0-12.2); MONOCYTES # (AUTO) 0.7 10^3/uL (0.0-1.0); MONOCYTES % (AUTO) 7 % (0-12); NEUTROPHILS % (AUTO) 77 % (42-75); PLATELET COUNT 352 10^3/uL (130-400); WHITE BLOOD COUNT 9.1 10^3/uL (4.3-11.0)
[2020-06-18 03:06] LABS: CHLORIDE 112 MMOL/L (98-107); POTASSIUM 3.5 MMOL/L (3.6-5.0); SODIUM 141 MMOL/L (135-145)
[2020-06-18 03:07] LABS: ABG BASE EXCESS 2.2 MMOL/L (-2.5-2.5); ABG OXYGEN SATURATION 97 % (94-100); ABG PCO2 42 MMHG (35-45); ABG PH 7.42 (7.37-7.43); ABG PO2 110 MMHG (79-93); ABG TCO2 27.5 MMOL/L (21.0-31.0); CALCIUM 6.9 MG/DL (8.5-10.1)
[2020-06-18 03:08] LABS: GLUCOSE 151 MG/DL (70-105); TRIGLYCERIDES 190 MG/DL (<150)
[2020-06-18 03:09] LABS: ALLENS TEST POSITIVE; CARBON DIOXIDE 22 MMOL/L (21-32); INSPIRED O2 50; PATIENT TEMP 37.3; VENTILATOR YES
[2020-06-18 03:11] LABS: CREATININE SERUM 0.49 MG/DL (0.60-1.30); GFR ESTIMATED > 60; PHOSPHORUS 2.2 MG/DL (2.3-4.7)
[2020-06-18 03:12] LABS: BUN/CREATININE RATIO 16
[2020-06-18 03:14] LABS: MAGNESIUM 1.7 MG/DL (1.6-2.4)
[2020-06-18] MEDS: KCL 20 MEQ TAB (K-DUR) PO SCH (05:23)
[2020-06-18] MEDS: MAGNESIUM 1 GM/100 ML IVPB 100 ML IV SCH (05:23)
[2020-06-18] MEDS: PROPOFOL DRIP (ICU) 100 ML IV SCH ×5 (05:23→21:07)
[2020-06-18] MEDS: POTASSIUM CL 10MEQ/50ML IVPB 50 ML IV SCH ×2 (05:23→05:43)
[2020-06-18] MEDS: D5 LR IV SOLUTION 1,000 ML IV SCH ×2 (05:45→17:18)
[2020-06-18] MEDS: fentaNYL DRIP PRE-MIX 250 ML IV SCH ×5 (05:45→21:12)
[2020-06-18] MEDS: dexAMETHasone 6 MG TAB (DECADRON) PO SCH (05:45)
[2020-06-18] MEDS: MIDAZOLAM DRIP PRE-MIX 100 ML IV SCH ×3 (06:33→23:19)
[2020-06-18] MEDS: DexMEDEtomidine PRE MIX 100 ML IV SCH ×8 (06:34→20:46)
[2020-06-18] MEDS: ANIDULAFUNGIN INJECTION 100 MG in NS (IVPB) 100 ML IV SCH (09:09)
[2020-06-18] MEDS: FAMOTIDINE 20 MG (PEPCID) TABLET PO SCH ×2 (09:10→20:46)
[2020-06-18] MEDS: meTOprolol TARTRATE 25 MG (LOPRESSOR) TABLET PO SCH ×2 (09:10→20:46)
--- NOTE | 2020-06-18 09:30 | Diagnostic Imaging Report ---
Clinical indications: Patient COVID positive. Patient on ventilator. Followup daily chest x-ray. Exam: Portable chest x-ray upright view. Comparisons: Portable chest x-ray dated 06/17/2020. Findings: There is slight improved aeration involving both upper lung brown. Otherwise there is no significant change of the diffuse bilateral lung infiltrates. There is no pleural effusion or pneumothorax. Pulmonary vasculature is obscured. Cardiac silhouette is within normal limits. ET tube seen in stable position with tip at the T2-T3 level. Feeding tube again noted. IMPRESSION: There is diffuse bilateral lung infiltrates again seen which is slightly improved involving both upper lung brown. Report was faxed to Kunal/RN Infection Control by ming at 9:29AM. Dictated by: Dictated on workstation # [id number]
[2020-06-18] MEDS: IBUPROFEN TABLET 200 MG TAB PO PRN (09:38)
--- NOTE | 2020-06-18 11:25 | Progress Note - Hospitalist ---
RAYMONROSA, 06/18/20 1125: Subjective HPI/CC On Admission Time Seen by Provider: 10:00 Subjective/Events-last exam Mr. Payan was seen and examined by Dr. Traylor in the ICU for acute respiratory failure secondary to COVID19 infection. He is currently intubated and on pressure control, will change to assist control mode. FiO2 40%, PEEP 12, peak pressure 19. Sedated with precedex, fentanyl, versed, and propofol. Objective Exam Vital Signs Vital Signs Date Time Temp Pulse Resp B/P (MAP) Pulse Ox O2 Delivery O2 Flow Rate FiO2 06/18/20 11:00 91 25 141/80 (100) 93 Mechanical Ventilator 50.00 06/18/20 10:33 50 06/18/20 07:48 37.9 Capillary Refill : Less Than 3 Seconds General Appearance: Obese, Other (intubated) Respiratory: Lungs Clear, Normal Breath Sounds Cardiovascular: Regular Rate, Rhythm, Normal Peripheral Pulses Gastrointestinal: Normal Bowel Sounds, Soft Results/Procedures Lab Laboratory Tests 06/18/20 02:45 Patient resulted labs reviewed. Imaging: Reviewed Imaging Report Assessment/Plan Assessment and Plan Assess & Plan/Chief Complaint Acute hypoxic respiratory failure secondary to COVID pneumonia * Intubated 06/10 * On pressure control, pressure support 19 -- will transition to assist control mode * FiO2 40%, PEEP 12, TV 500, peak pressure 28 * Proning today 06/17 * Day 9 Decadron * Not a candidate for remdesivir * Convalescent plasma 06/09 Fever of uncertain etiology Herpetic lesion * Continue acyclovir day 3 to vancomycin day 4, Eraxis day 5 Morbid obesity Type 2 diabetes * Levemir 10unit HS * Sliding scale A Diet: npo - holding pulmocare as patient did not tolerate tube feedings GI/DVT ppx: pepcid; lovenox FULL CODE Critical Care: Critically Ill Patient Clinical Quality Measures DVT/VTE Risk/Contraindication: Risk Factor Score Per Nursin RFS Level Per Nursing on Admit: 4+=Very High CHI TRAYLOR MD 06/18/20 1411: Subjective HPI/CC On Admission Date Seen by Provider: Jun 18, 2020 Assessment/Plan Assessment and Plan Critical Care: Ventilator Management Supervisory-Addendum Brief Verification & Attestation Participated in pt care: history, MDM, physical Personally performed: exam, history, MDM Care discussed with: Medical Student, other (RT.RN) Procedures: n/a LOng discussion with RT re: changing to AC vent modalityVerification and Attestation of Medical Student E/M Service A medical student performed and documented this service in my presence. I reviewed and verified all information documented by the medical student and made modifications to such information, when appropriate. I personally performed the physical exam and medical decision making. Chi Traylor, Jun 18, 2020,14:11 ROSA ENNIS, Jun 18, 2020 11:25 CHI TRAYLOR MD Jun 18, 2020 14:11
--- NOTE | 2020-06-18 11:59 | NUR ---
Updated pt's mom, Tracy, at this time.
[2020-06-18] MEDS: hydrALAZINE (APESOLINE) 20 MG/ML VIAL IV PRN (20:45)
[2020-06-18] MEDS: LORazepam INJ 2 MG/ML (ATIVAN) VIAL IV PRN (21:04)
[2020-06-18] MEDS ORDERED: ENOXAPARIN 60 MG/0.6 ML (LOVENOX) SYR ONE (23:25)
[2020-06-18] MEDS ORDERED: ENOXAPARIN 100 MG/1 ML (LOVENOX) SYR ONE (23:25)
--- NOTE | 2020-06-18 23:34 | NUR ---
Lovenox not drawn up by pharmacy. 100mg and 50mg given to equal total of 150mg.
[2020-06-19] VITALS (7 sets, daily range): BP systolic 111–173; BP diastolic 68–114
[2020-06-19] MEDS: DexMEDEtomidine PRE MIX 100 ML IV SCH ×7 (00:19→21:05)
[2020-06-19] MEDS: ACYCLOVIR INJECTION 500 MG in NS (IVPB) 100 ML IV SCH ×2 (00:20→08:04)
[2020-06-19] MEDS: fentaNYL DRIP PRE-MIX 250 ML IV SCH ×7 (01:15→21:05)
[2020-06-19] MEDS: RT-ALBUTEROL INHALER HFA (VENTOLIN HFA) 18 GM IH SCH ×6 (02:13→21:02)
[2020-06-19] MEDS: aCETylcysteine 20% (MUCOMYST) 30ML SOLN VIAL INH SCH ×4 (02:14→21:02)
[2020-06-19] MEDS: PROPOFOL DRIP (ICU) 100 ML IV SCH ×6 (02:51→23:10)
[2020-06-19 03:14] LABS: ABG BASE EXCESS 0.6 MMOL/L (-2.5-2.5); ABG OXYGEN SATURATION 92 % (94-100); ABG PCO2 47 MMHG (35-45); ABG PH 7.36 (7.37-7.43); ABG PO2 68 MMHG (79-93); ABG TCO2 26.6 MMOL/L (21.0-31.0); ALLENS TEST POSITIVE; INSPIRED O2 100; PATIENT TEMP 37.8; VENTILATOR YES
[2020-06-19 03:15] LABS: BASOPHILS # (AUTO) 0.1 10^3/uL (0.0-0.1); BASOPHILS % (AUTO) 0 % (0-10); EOSINOPHILS # (AUTO) 0.1 10^3/uL (0.0-0.3); EOSINOPHILS % (AUTO) 1 % (0-10); HEMATOCRIT 27 % (40-54); HEMOGLOBIN 8.9 g/dL (13.3-17.7); LYMPHOCYTES # (AUTO) 1.4 10^3/uL (1.0-4.0); LYMPHOCYTES % (AUTO) 11 % (12-44); MEAN CORPUSCULAR HEMOGLOBIN 29 pg (25-34); MEAN CORPUSCULAR HGB CONC 33 g/dL (32-36); MEAN CORPUSCULAR VOLUME 89 fL (80-99); MEAN PLATELET VOLUME 9.4 fL (9.0-12.2); MONOCYTES # (AUTO) 0.7 10^3/uL (0.0-1.0); MONOCYTES % (AUTO) 6 % (0-12); NEUTROPHILS # (AUTO) 9.9 10^3/uL (1.8-7.8); NEUTROPHILS % (AUTO) 81 % (42-75); PLATELET COUNT 360 10^3/uL (130-400); WHITE BLOOD COUNT 12.2 10^3/uL (4.3-11.0)
[2020-06-19 03:22] LABS: CHLORIDE 112 MMOL/L (98-107); POTASSIUM 3.1 MMOL/L (3.6-5.0); SODIUM 141 MMOL/L (135-145)
[2020-06-19 03:23] LABS: CALCIUM 6.5 MG/DL (8.5-10.1)
[2020-06-19 03:24] LABS: GLUCOSE 144 MG/DL (70-105)
[2020-06-19 03:25] LABS: CARBON DIOXIDE 22 MMOL/L (21-32)
[2020-06-19 03:28] LABS: GFR ESTIMATED > 60; PHOSPHORUS 2.7 MG/DL (2.3-4.7)
[2020-06-19 03:29] LABS: BUN/CREATININE RATIO 15
[2020-06-19 03:30] LABS: MAGNESIUM 1.6 MG/DL (1.6-2.4)
[2020-06-19] MEDS: POTASSIUM CL 10MEQ/50ML IVPB 50 ML IV SCH ×8 (04:01→14:06)
[2020-06-19] MEDS: MAGNESIUM 1 GM/100 ML IVPB 100 ML IV SCH ×3 (04:01→09:10)
[2020-06-19] MEDS: KCL 20 MEQ TAB (K-DUR) PO SCH (04:02)
[2020-06-19] MEDS: inSUlin ASPART (NovoLOG) 1 UNIT/0.01 ML (CHARGE PER UNIT) SC SCH ×4 (04:02→23:11)
--- NOTE | 2020-06-19 05:19 | Pulmonary Progress Note ---
Subjective Date Seen by a Provider: Jun 19, 2020 Time Seen by a Provider: 05:14 Subjective/Events-last exam Pt is sedated on vent. Sepsis Event Evaluation Height, Weight, BMI Height: 6'0.00" Weight: 360lbs. 0.0oz. 163.261023gh; 46.28 BMI Method: Exam Exam Vital Signs Date Time Temp Pulse Resp B/P (MAP) Pulse Ox O2 Delivery O2 Flow Rate FiO2 06/19/20 03:56 134/81 06/19/20 03:55 91 06/19/20 03:08 Mechanical Ventilator 100.00 06/19/20 02:51 136/89 06/19/20 02:15 86 29 91 85 06/19/20 02:14 86 29 91 85 06/19/20 01:09 Mechanical Ventilator 90.00 06/19/20 01:00 89 06/19/20 00:20 141/83 06/19/20 00:19 97 06/19/20 00:00 37.6 89 27 148/87 (107) 90 Mechanical Ventilator 85.00 06/18/20 23:19 149/81 06/18/20 23:00 37.7 90 18 146/81 (101) 90 Mechanical Ventilator 85.00 06/18/20 22:00 37.8 86 22 141/85 (98) 91 Mechanical Ventilator 85.00 06/18/20 21:46 86 29 91 85 06/18/20 21:41 86 29 91 85 06/18/20 21:07 91 157/89 06/18/20 21:00 38 101 31 157/89 (107) 83 Mechanical Ventilator 85.00 06/18/20 20:46 154/93 06/18/20 20:45 86 06/18/20 20:44 90 24 168/100 (122) 94 Mechanical Ventilator 85.00 06/18/20 20:00 93 Mechanical Ventilator 85 06/18/20 20:00 85 12 167/103 (122) 95 Mechanical Ventilator 50.00 06/18/20 19:29 37.3 06/18/20 19:00 84 11 168/102 (127) 95 Mechanical Ventilator 50.00 06/18/20 19:00 84 06/18/20 18:51 85 24 98 95 06/18/20 18:00 82 15 166/102 (123) 98 Mechanical Ventilator 50.00 06/18/20 17:20 86 06/18/20 17:20 86 06/18/20 17:00 83 20 169/109 (129) 98 Mechanical Ventilator 50.00 06/18/20 16:00 86 14 167/102 (123) 98 Mechanical Ventilator 50.00 06/18/20 15:15 37.1 06/18/20 15:00 82 24 158/107 (124) 97 Mechanical Ventilator 50.00 06/18/20 14:07 81 06/18/20 14:06 81 06/18/20 14:05 81 06/18/20 14:00 82 28 149/90 (109) 92 Mechanical Ventilator 50.00 06/18/20 13:46 82 24 90 100 06/18/20 13:00 80 13 142/91 (101) 90 Mechanical Ventilator 50.00 06/18/20 13:00 84 06/18/20 12:00 85 14 134/76 (101) 90 Mechanical Ventilator 50.00 06/18/20 11:00 91 25 141/80 (100) 93 Mechanical Ventilator 50.00 06/18/20 10:57 76 06/18/20 10:56 76 06/18/20 10:33 85 22 92 50 06/18/20 10:00 97 13 106/63 (77) 93 Mechanical Ventilator 40.00 06/18/20 09:00 98 10 100/62 (75) 92 Mechanical Ventilator 40.00 06/18/20 08:00 93 Mechanical Ventilator 40 06/18/20 08:00 85 20 137/89 (105) 92 Mechanical Ventilator 40.00 06/18/20 08:00 79 06/18/20 07:48 37.9 06/18/20 07:28 79 20 91 40 06/18/20 07:00 76 19 138/86 (103) 90 Mechanical Ventilator 40.00 06/18/20 06:35 Mechanical Ventilator 40.00 06/18/20 06:34 87 06/18/20 06:34 87 06/18/20 06:33 78 06/18/20 06:00 80 20 143/89 (107) 94 Mechanical Ventilator 45.00 I & O 06/19/20 06:59 Intake Total 100 ml Output Total 1025 ml Balance -925 ml Height & Weight Height: 6'0.00" Weight: 360lbs. 0.0oz. 163.323403yc; 46.28 BMI Method: General Appearance: Obese HEENT: Other (Left large herpetic lesion) Neck: Limited Range of Motion Respiratory: Crackles, Decreased Breath Sounds Cardiovascular: Regular Rate, Rhythm, No Gallop, No Murmur Capillary Refill: Less Than 3 Seconds Gastrointestinal: normal bowel sounds, non tender, soft Extremity: Pedal Edema Neurologic/Psychiatric: Other Skin: Normal Color, Warm/Dry Results Lab Laboratory Tests 06/18/20 02:45 06/19/20 03:05 Assessment/Plan Assessment/Plan COVID with pneumonia and acute respiratory failure -Pt was intubated 06/10 -EICU managed pt through the weeked -Vent 400/21/05 --- -Increase PEEP to 16 -Precedex 1.5, propofol 10, Fentanyl 300, and Versed 10mg, - TF per dietary recs -EICU managed through the weekend -IVF currently D5LR 75cc/hr -- urine is concentrated -Decadron -CVP - Proning -callejas cultures pending -Pt does not qualify for Remdesivir Hypertriglyceridemia -improving Persistent high fevers -Repeat callejas cultures -Zosyn add Vanco secondary to persistent fevers. -Add Eraxis for now hypokalemia -Replace DM s/p Acute DKA -D5 LR Levemier -SSI -10 units of Levemir -Hold home PO diabetic meds Leukocytosis - currently on Zosyn -Continue to monitor -Recheck PCT Morbid obesity DVT/GI ppx -Lovenox , pepcid NAT BRIGHT DO Jun 19, 2020 05:19
[2020-06-19] MEDS ORDERED: FUROSEMIDE 40 MG/4 ML INJ (LASIX) IVP ONE (05:30)
[2020-06-19] MEDS: dexAMETHasone 6 MG TAB (DECADRON) PO SCH (06:56)
[2020-06-19] MEDS ORDERED: TROUGH ORDER-PHARMACY XX ONE (07:00)
[2020-06-19] MEDS ORDERED: risperiDONE 2 MG (RisperDAL) TAB PO ONE (08:00)
--- NOTE | 2020-06-19 08:00 | NUR ---
New OG tube placed as old OG was not in place
[2020-06-19] MEDS: METOCLOPRAMIDE INJ 10 MG/2 ML (REGLAN) IVP SCH ×2 (08:03→16:55)
[2020-06-19] MEDS: ANIDULAFUNGIN INJECTION 100 MG in NS (IVPB) 100 ML IV SCH (08:04)
[2020-06-19] MEDS: VANCOMYCIN INJECTION 2,250 MG in NS IV 500 ML 500 ML IV SCH ×3 (08:04→23:05)
--- NOTE | 2020-06-19 08:06 | Physical Therapy Progress Note ---
Therapy Progress Note Patient is sedated and intubated. PT will continue to monitor patient status. ROSENDA ZHONG PT Jun 19, 2020 08:05
[2020-06-19] MEDS: MIDAZOLAM DRIP PRE-MIX 100 ML IV SCH ×2 (08:15→18:07)
--- NOTE | 2020-06-19 08:18 | Diagnostic Imaging Report ---
CHEST 1 VIEW, AP/PA ONLY Indication: Intubation, Covid-19 pneumonia. Comparison: 06/18/2020 Findings: ET tube has tip 6 cm above the leidy. Enteric tube courses into the stomach. Stable right PICC. Progression in multifocal and bilateral pulmonary consolidations. No pleural effusion or pneumothorax. Normal cardiomediastinal silhouette. Impression: 1. Stable support devices. 2. Progression in bilateral pulmonary consolidations likely due to Covid-19 pneumonia. Dictated by: Dictated on workstation # [id number]
[2020-06-19] MEDS: VALACYCLOVIR 500 MG TAB (VALTREX) PO SCH ×2 (09:00→20:31)
[2020-06-19] MEDS: meTOprolol TARTRATE 25 MG (LOPRESSOR) TABLET PO SCH ×2 (09:01→20:32)
[2020-06-19] MEDS: FAMOTIDINE 20 MG (PEPCID) TABLET PO SCH ×2 (09:01→20:32)
[2020-06-19] MEDS: D5 LR IV SOLUTION 1,000 ML IV SCH ×2 (10:35→23:11)
[2020-06-19] MEDS: DOCOSANOL 10 % CREAM (ABREVA) 2 GM TP SCH ×4 (10:57→20:32)
--- NOTE | 2020-06-19 10:57 | Diagnostic Imaging Report ---
INDICATION: Line placement. TECHNIQUE/COMPARISON: A frontal chest was obtained at 10:43 AM and is compared to the same day at 6:08 AM. FINDINGS: The ET tube and NG tube are unchanged. There is a new right IJ central catheter with the tip overlying the upper SVC. There is no change in the right-sided PICC line. There is no pneumothorax or pleural fluid. Patchy bilateral infiltrates are unchanged compared to earlier today. IMPRESSION: No change in the bilateral infiltrates. No pneumothorax or pleural fluid. A new right IJ central catheter tip overlies the upper SVC. There is no pneumothorax following line placement. The remaining life support lines are unchanged. Dictated by: Dictated on workstation # [id number]
--- NOTE | 2020-06-19 10:59 | NUR ---
Central line placed by Dr. Santillan who told this RN and BIANKA Quinonez RN, that no xray was needed prior to use. Potassium moved from Picc Line to Central line at this time.
--- NOTE | 2020-06-19 11:28 | Physical Therapy Progress Note ---
Therapy Progress Note Non skilled PROM B U/LE all available planes. JAS TEMPLE PT Jun 19, 2020 11:28
[2020-06-19] MEDS: ENOXAPARIN 300 MG/3 ML (LOVENOX) MULTI-DOSE VIAL SQ SCH ×2 (11:37→23:05)
--- NOTE | 2020-06-19 14:32 | NUR ---
Note pt had been having issues with TF tolerance while being prone. Would recommend feeding while supine Pulmocare via 60ml bolus feeds q4h with 30ml free water flushes before/after each bolus. Recommend increase by 60ml q8h as tolerated toward goal of 480ml (2 cans) bolus feeds q4h, while supine. Will continue to follow and reassess as pt needs, intake, and status change. Carl Trinh MS RD LD [phone] cell
[2020-06-19] MEDS: LORazepam INJ 2 MG/ML (ATIVAN) VIAL IV PRN ×2 (14:58→18:06)
[2020-06-19] MEDS ORDERED: KETAMINE HCL 100 MG/ML 5 ML VIAL IV ONE (15:30)
[2020-06-19] MEDS: NS IV SCH ×6 (16:04→16:51)
[2020-06-19] MEDS: KETAMINE IV SCH ×6 (16:04→16:51)
--- NOTE | 2020-06-19 16:26 | NUR ---
Updated Pt's mom, Tracy, at this time.
[2020-06-19] MEDS ORDERED: meTOprolol TARTRATE 50 MG (LOPRESSOR) TAB PO NR (16:45)
[2020-06-19] MEDS: ACETAMINOPHEN 650 MG SUPP (TYLENOL) PR PRN (18:32)
[2020-06-19] MEDS ORDERED: FUROSEMIDE 40 MG/4 ML INJ (LASIX) IVP NR (19:00)
[2020-06-19] MEDS: risperiDONE 1 MG (RisperDAL) TAB PO SCH (20:31)
--- NOTE | 2020-06-19 20:52 | Progress Note-Post Operative ---
Post-Operative Progess Note Surgeon (s)/Welfare Interviewer (s) Surgeon ANDRES MIRANDA DO Welfare Interviewer: none Pre-Operative Diagnosis Covid-19 Resp Failure, Hypotension, need for pressure support Post-Operative Diagnosis same Procedure & Operative Findings Date of Procedure 06/19/20 Procedure Performed/Findings PROCEDURE: [Right] internal jugular central line placement using ultrasound guidance. COMPLICATIONS: None. INDICATIONS: The patient is a 34 year old male [with Covid-19 respiratory failure, needs central line for pressor support]. PROCEDURE: The patient was in his bed in the ICU, was prepped and draped in the sterile fashion. A surgical pause was performed. Ultrasound was used to locate the internal jugular vein. Using an 18gauge finder needle the right internal vein was accessed. Dark nonpulsatile blood was withdrawn. The wire was inserted using the Seldinger technique and US assured proper placement. The needle was removed. A [#11] blade scalpel was used to make a stab incision along the guidewire and the dilator sheath was then advanced over the wire using the Seldinger technique and then was removed. The triple lumen catheter was then inserted over the wire using the seldinger technique. Each port had locking mechanism placed, each was then accessed without difficulty and then flushed with saline. The catheter was then sutured in place with 3-0 Silk on a Mikey needle and sterile dressing placed over the incision. The patient tolerated the procedure well without complication. Anesthesia Type none, pt sedated because he is intubated Estimated Blood Loss Estimated blood loss (mL): scant Specimens/Packing Specimens Removed none ANDRES MIRANDA DO Jun 19, 2020 20:52
--- NOTE | 2020-06-19 20:56 | Consultation - Surgery ---
History of Present Illness History of Present Illness Patient Consulted On(kvng/time) 06/19/20 20:52 Time Seen by Provider: 07:41 History of Present Illness Surgery asked to consult regarding hypotension, venous insufficiency. HPI per ED: Patient is a 34-year-old male who presents to the emergency department today with a chief complaint of shortness of breath. Patient states that he was diagnosed with coronavirus on June 03. He started having symptoms about 3 days prior. Complaints of a change in taste but not loss of taste. Patient states that today he just became more short of breath with persistent cough and decided to call the ambulance. EMS reports that the patient's oxygen saturations were 75% on room air on their arrival. Patient also endorses fever, chills and body aches. He denies nausea, upset stomach or diarrhea. No problems with urination. Patient states that he has been taking antibiotics but no steroids. When I saw pt he was sedated and intubated, needing Norepinephrine to maintain BP. Allergies and Home Medications Allergies Coded Allergies: No Known Drug Allergies (Unverified , 06/08/20) Home Medications Acetaminophen 500 Mg Tablet, 1,000 MG PO Q8H PRN for PAIN-MILD (1-4) OR TEMPATURE, (Reported) Albuterol Sulfate 6.7 Gm Hfa.aer.ad, 2 PUFF INH Q4H PRN for SHORTNESS OF BREATH, (Reported) Azithromycin 250 Mg Tablet, 250 MG PO DAILY, (Reported) FILLED 06-03-2120 #6/5 DAY SUPPLY Brexpiprazole 0.5 Mg Tablet, 0.5 MG PO DAILY, (Reported) Canagliflozin/Metformin HCl 1 Each Tab.bp.24h, 2 EACH PO DAILY, (Reported) Dulaglutide 0.75 Mg/0.5 Ml Pen.injctr, 0.75 MG SQ FRI, (Reported) Duloxetine HCl 60 Mg Capsule.dr, 120 MG PO DAILY, (Reported) TAKES 2 (60MG) CAPS Gemfibrozil 600 Mg Tablet, 600 MG PO BID, (Reported) Hydrochlorothiazide 50 Mg Tablet, 50 MG PO DAILY, (Reported) Metoprolol Tartrate 50 Mg Tablet, 50 MG PO BID, (Reported) Montelukast Sodium 10 Mg Tablet, 10 MG PO DAILY, (Reported) Multivitamin 1 Each Tablet, 1 EACH PO DAILY, (Reported) Pioglitazone HCl 30 Mg Tablet, 30 MG PO DAILY, (Reported) Rosuvastatin Calcium 20 Mg Tablet, 20 MG PO DAILY, (Reported) Patient Home Medication List Home Medication List Reviewed: Yes Past Hasotic-Aundtq-Voqkqq Hx Patient Social History Smoking Status: Never a Smoker 2nd Hand Smoke Exposure: No Recent Hopitalizations: No Immunizations Up To Date Tetanus Booster (TDap): Unknown Date of Influenza Vaccine: Mar 23, 2020 Seasonal Allergies Seasonal Allergies: No Surgeries History of Surgeries: Yes (dental) Respiratory History of Respiratory Disorde: No Cardiovascular History of Cardiac Disorders: Yes Cardiac Disorders: High Cholesterol, Hypertension Neurological History of Neurological Disord: No Genitourinary History of Genitourinary Disor: No Gastrointestinal History of Gastrointestinal Di: No Musculoskeletal History of Musculoskeletal Dis: No Endocrine History of Endocrine Disorders: Yes Endocrine Disorders: Diabetes, Insulin dep HEENT History of HEENT Disorders: No Cancer History of Cancer: No Psychosocial History of Psychiatric Problem: Yes Behavioral Health Disorders: Depression Integumentary History of Skin or Integumenta: No Blood Transfusions History of Blood Disorders: No Family Medical History Significant Family History: Other Conditions/Hx (unable to obtain because pt is intubated) Review of Systems-General ROS-Unable to Obtain: pt intubated and sedated Physical Exam-General Problems Physical Exam Vital Signs Vital Signs - First Documented 06/13/20 06/13/20 00:00 03:24 Temp 38.7 Pulse 75 Resp 16 B/P (MAP) 130/86 (101) Pulse Ox 96 O2 Delivery Mechanical Ventilator O2 Flow Rate 40.00 FiO2 40 Capillary Refill : Less Than 3 Seconds General Appearance: moderate distress, obese (morbidly) Eyes: Bilateral Eye PERRL, Bilateral Eye EOMI Respiratory: no accessory muscle use, decreased breath sounds, crackles Cardiovascular: regular rate, rhythm, no murmur Gastrointestinal: soft, no organomegaly Extremities: normal capillary refill, pedal edema Skin: normal color, warm/dry Data Review Labs Laboratory Tests 06/18/20 23:25: Glucometer 145H 06/19/20 03:05: White Blood Count 12.2H, Red Blood Count 3.07L, Hemoglobin 8.9L, Hematocrit 27L, Mean Corpuscular Volume 89, Mean Corpuscular Hemoglobin 29, Mean Corpuscular Hemoglobin Concent 33, Red Cell Distribution Width 13.1, Platelet Count 360, Mean Platelet Volume 9.4, Immature Granulocyte % (Auto) 1, Neutrophils (%) (Auto) 81H, Lymphocytes (%) (Auto) 11L, Monocytes (%) (Auto) 6, Eosinophils (%) (Auto) 1, Basophils (%) (Auto) 0, Neutrophils # (Auto) 9.9H, Lymphocytes # (Auto) 1.4, Monocytes # (Auto) 0.7, Eosinophils # (Auto) 0.1, Basophils # (Auto) 0.1, Immature Granulocyte # (Auto) 0.1, Blood Gas Puncture Site RIGHT RADIAL, Blood Gas Patient Temperature 37.8, Arterial Blood pH 7.36L, Arterial Blood Partial Pressure CO2 47H, Arterial Blood Partial Pressure O2 68L, Arterial Blood HCO3 25, Arterial Blood Total CO2 26.6, Arterial Blood Oxygen Saturation 92L, Arterial Blood Base Excess 0.6, Reyes Test POSITIVE, Blood Gas Ventilator Setting YES, Blood Gas Inspired Oxygen 100, Sodium Level 141, Potassium Level 3.1L, Chloride Level 112H, Carbon Dioxide Level 22, Anion Gap 7, Blood Urea Nitrogen 6L, Creatinine 0.40L, Estimat Glomerular Filtration Rate > 60, BUN/Creatinine Ratio 15, Glucose Level 144H, Calcium Level 6.5L, Phosphorus Level 2.7, Magnesium Level 1.6, Procalcitonin 0.02 06/19/20 07:15: Vancomycin Level Trough 9.1L 06/19/20 11:40: Glucometer 165H 06/19/20 17:23: Glucometer 132H Microbiology 06/13/20 Blood Culture - Final, Complete Staph, Coag Neg (INSOLE ROUNDER) See Comments 06/13/20 Urine Culture - Final, Complete YEAST 06/13/20 Gram Stain - Final, Complete 06/13/20 Sputum Culture - Final, Complete Usual upper respiratory melody Assessment/Plan Assessment/Plan Assessment/Plan Covid-19 Respiratory Failure Hypotension Venous insufficiency Pt needs a central line in order to run vasopressors longer than a day. Central line will be placed. Clinical Quality Measures DVT/VTE Risk/Contraindication: Risk Factor Score Per Nursin RFS Level Per Nursing on Admit: 4+=Very High ANDRES MIRANDA DO Jun 19, 2020 20:56
[2020-06-20] MEDS: DexMEDEtomidine PRE MIX 100 ML IV SCH ×2 (00:17→03:57)
[2020-06-20] MEDS: fentaNYL DRIP PRE-MIX 250 ML IV SCH ×6 (00:54→21:59)
[2020-06-20 02:09] VITALS: BP 126/86
[2020-06-20] MEDS: aCETylcysteine 20% (MUCOMYST) 30ML SOLN VIAL INH SCH ×4 (02:09→19:06)
[2020-06-20] MEDS: RT-ALBUTEROL INHALER HFA (VENTOLIN HFA) 18 GM IH SCH ×6 (02:09→22:48)
[2020-06-20] MEDS: MIDAZOLAM DRIP PRE-MIX 100 ML IV SCH ×3 (03:37→20:58)
[2020-06-20 04:01] LABS: ABG BASE EXCESS 1.7 MMOL/L (-2.5-2.5); ABG OXYGEN SATURATION 98 % (94-100); ABG PCO2 50 MMHG (35-45); ABG PH 7.35 (7.37-7.43); ABG PO2 106 MMHG (79-93)
[2020-06-20 04:02] LABS: ALLENS TEST POSITIVE; INSPIRED O2 70; PATIENT TEMP 37.9; VENTILATOR YES
[2020-06-20 04:06] LABS: BASOPHILS # (AUTO) 0.1 10^3/uL (0.0-0.1); BASOPHILS % (AUTO) 1 % (0-10); EOSINOPHILS # (AUTO) 0.1 10^3/uL (0.0-0.3); EOSINOPHILS % (AUTO) 1 % (0-10); HEMATOCRIT 29 % (40-54); HEMOGLOBIN 9.5 g/dL (13.3-17.7); LYMPHOCYTES # (AUTO) 1.3 10^3/uL (1.0-4.0); LYMPHOCYTES % (AUTO) 13 % (12-44); MEAN CORPUSCULAR HEMOGLOBIN 29 pg (25-34); MEAN CORPUSCULAR HGB CONC 33 g/dL (32-36); MEAN CORPUSCULAR VOLUME 89 fL (80-99); MEAN PLATELET VOLUME 9.2 fL (9.0-12.2); MONOCYTES # (AUTO) 0.8 10^3/uL (0.0-1.0); MONOCYTES % (AUTO) 8 % (0-12); NEUTROPHILS # (AUTO) 8.3 10^3/uL (1.8-7.8); NEUTROPHILS % (AUTO) 78 % (42-75); PLATELET COUNT 416 10^3/uL (130-400); WHITE BLOOD COUNT 10.7 10^3/uL (4.3-11.0)
[2020-06-20 04:12] LABS: CHLORIDE 106 MMOL/L (98-107); POTASSIUM 3.8 MMOL/L (3.6-5.0); SODIUM 141 MMOL/L (135-145)
[2020-06-20 04:13] LABS: CALCIUM 7.8 MG/DL (8.5-10.1); GLUCOSE 188 MG/DL (70-105)
[2020-06-20 04:14] LABS: TRIGLYCERIDES 190 MG/DL (<150)
[2020-06-20 04:15] LABS: CARBON DIOXIDE 27 MMOL/L (21-32)
[2020-06-20 04:17] LABS: CREATININE SERUM 0.56 MG/DL (0.60-1.30); GFR ESTIMATED > 60
[2020-06-20 04:18] LABS: BUN/CREATININE RATIO 11
--- NOTE | 2020-06-20 04:30 | Pulmonary Progress Note ---
Subjective Time Seen by a Provider: 04:24 Subjective/Events-last exam Pt is sedated on vent. Sepsis Event Evaluation Height, Weight, BMI Height: 6'0.00" Weight: 360lbs. 0.0oz. 163.971241oi; 46.28 BMI Method: Exam Exam Vital Signs Date Time Temp Pulse Resp B/P (MAP) Pulse Ox O2 Delivery O2 Flow Rate FiO2 06/20/20 03:57 Mechanical Ventilator 06/20/20 02:09 90 24 93 70 06/20/20 00:17 108/68 06/20/20 00:17 93 06/19/20 23:10 93 106/70 06/19/20 21:05 157/96 06/19/20 21:04 154 06/19/20 21:03 158 25 96 70 06/19/20 20:30 38.3 161 20 162/84 (110) 96 Mechanical Ventilator 70.00 06/19/20 20:00 95 Mechanical Ventilator 70 06/19/20 19:00 163 06/19/20 18:26 163 27 95 70 06/19/20 18:07 160 06/19/20 18:06 160 06/19/20 18:00 37.8 158 25 161/108 (125) 96 Mechanical Ventilator 100.00 06/19/20 17:00 37.6 161 25 159/88 (111) 95 Mechanical Ventilator 100.00 06/19/20 16:00 37.4 156 26 161/93 (115) 95 Mechanical Ventilator 100.00 06/19/20 15:06 142 26 97 70 06/19/20 15:01 146 06/19/20 15:00 37.2 151 19 144/90 (108) 97 Mechanical Ventilator 100.00 06/19/20 14:00 37.1 126 15 144/91 (108) 96 Mechanical Ventilator 100.00 06/19/20 13:26 111 06/19/20 13:00 37.0 108 9 130/90 (103) 94 Mechanical Ventilator 100.00 06/19/20 12:00 37.1 96 13 126/90 (102) 95 Mechanical Ventilator 100.00 06/19/20 11:15 98 06/19/20 11:00 37.3 92 17 117/81 (93) 88 Mechanical Ventilator 100.00 06/19/20 10:55 Mechanical Ventilator 80.00 06/19/20 10:43 79 25 96 100 06/19/20 10:00 37.5 79 20 118/69 (85) 95 Mechanical Ventilator 100.00 06/19/20 09:00 37.6 87 22 136/79 (98) 97 Mechanical Ventilator 100.00 06/19/20 08:15 84 06/19/20 08:15 84 06/19/20 08:00 94 Mechanical Ventilator 80 06/19/20 08:00 37.5 84 10 145/89 (107) 97 Mechanical Ventilator 100.00 06/19/20 07:00 37.6 84 24 135/83 (100) 94 Mechanical Ventilator 100.00 06/19/20 06:57 86 06/19/20 06:57 142/81 06/19/20 06:51 85 06/19/20 06:15 37.8 86 23 148/88 (108) 96 Mechanical Ventilator 100.00 06/19/20 06:00 37.7 91 25 152/114 (127) 92 Mechanical Ventilator 100.00 06/19/20 06:00 90 27 94 100 06/19/20 05:00 37.5 90 24 135/83 (100) 90 Mechanical Ventilator 100.00 I & O 06/20/20 07:00 Intake Total 100 ml Output Total 5225 ml Balance -5125 ml Height & Weight Height: 6'0.00" Weight: 360lbs. 0.0oz. 163.583343ui; 46.28 BMI Method: General Appearance: Obese HEENT: Other (Left large herpetic lesion) Neck: Limited Range of Motion Respiratory: Crackles, Decreased Breath Sounds Cardiovascular: Regular Rate, Rhythm, No Gallop, No Murmur Capillary Refill: Less Than 3 Seconds Gastrointestinal: soft, no organomegaly Extremity: Pedal Edema Neurologic/Psychiatric: Other Skin: Normal Color, Warm/Dry Results Lab Laboratory Tests 06/19/20 03:05 06/20/20 03:40 Assessment/Plan Assessment/Plan COVID with pneumonia and acute respiratory failure -Pt was intubated 06/10 -EICU managed pt through the weeked -Vent /21/05 --- -Increase PEEP to 16 -Precedex 1.5, propofol 10, Fentanyl 300, and Versed 10mg, -Will start ketamine gtt per protocol and d/C precedex. - TF per dietary recs -EICU managed through the weekend -D/C IVF -Decadron -CVP - Proning -callejas cultures pending -Pt does not qualify for Remdesivir Hypertriglyceridemia -improving Persistent high fevers -Repeat callejas cultures -Vanco eraxsis -Add Eraxis for now HTN and sinus tachycardia -Lopressor 25mg BID hypokalemia -Replace DM s/p Acute DKA -D5 LR Levemier -SSI -10 units of Levemir -Hold home PO diabetic meds Leukocytosis - currently on Zosyn -Continue to monitor -Recheck PCT Morbid obesity DVT/GI ppx -Lovenox , NAT Gracia DO Jun 20, 2020 04:30
[2020-06-20] MEDS: MAGNESIUM 1 GM/100 ML IVPB 100 ML IV SCH (05:01)
[2020-06-20] MEDS: KCL 20 MEQ TAB (K-DUR) PO SCH (05:01)
[2020-06-20] MEDS: POTASSIUM CL 10MEQ/50ML IVPB 50 ML IV SCH (05:01)
[2020-06-20] MEDS: inSUlin ASPART (NovoLOG) 1 UNIT/0.01 ML (CHARGE PER UNIT) SC SCH ×4 (05:03→23:07)
[2020-06-20] MEDS ORDERED: NS IV 500 ML 500 ML ONE (05:48)
[2020-06-20] MEDS ORDERED: KETAMINE HCL 100 MG/ML 5 ML VIAL ONE (05:48)
[2020-06-20] MEDS: KETAMINE INJECTION 500 MG in NS IV 500 ML 500 ML IV SCH ×5 (06:05→23:30)
[2020-06-20] MEDS: DOCOSANOL 10 % CREAM (ABREVA) 2 GM TP SCH ×5 (06:06→20:59)
[2020-06-20] MEDS: dexAMETHasone 6 MG TAB (DECADRON) PO SCH (06:06)
[2020-06-20 06:46] VITALS: BP 107/70
--- NOTE | 2020-06-20 07:49 | Diagnostic Imaging Report ---
INDICATION: Respiratory failure Portable chest 3:39 AM There is ET tube projects over the trachea. There is NG tube that appears to enter the stomach. Right upper extremity PICC line tip projects over the SVC. Right IJ central line tip projects over the SVC. There are diffuse alveolar infiltrates in the lungs. IMPRESSION: Diffuse pulmonary infiltrates in both lungs. Left lung appears stable compared to the previous day. Right lung appears slightly worse. Dictated by: Dictated on workstation # [id number]
--- NOTE | 2020-06-20 08:05 | Physical Therapy Progress Note ---
Therapy Progress Note Patient is sedated and intubated. PT will continue to monitor patient status. ROSENDA ZHONG PT Jun 20, 2020 08:05
[2020-06-20] MEDS: METOCLOPRAMIDE INJ 10 MG/2 ML (REGLAN) IVP SCH ×2 (08:20→16:19)
[2020-06-20] MEDS: ANIDULAFUNGIN INJECTION 100 MG in NS (IVPB) 100 ML IV SCH (08:20)
[2020-06-20] MEDS: VANCOMYCIN INJECTION 2,250 MG in NS IV 500 ML 500 ML IV SCH ×3 (08:20→23:07)
[2020-06-20] MEDS: FAMOTIDINE 20 MG (PEPCID) TABLET PO SCH ×2 (08:20→20:59)
[2020-06-20] MEDS: risperiDONE 1 MG (RisperDAL) TAB PO SCH ×2 (08:21→20:59)
[2020-06-20] MEDS: VALACYCLOVIR 500 MG TAB (VALTREX) PO SCH ×2 (08:21→20:59)
[2020-06-20] MEDS: meTOprolol TARTRATE 25 MG (LOPRESSOR) TABLET PO SCH ×2 (08:21→20:59)
[2020-06-20] MEDS: PROPOFOL DRIP (ICU) 100 ML IV SCH ×3 (08:22→19:56)
[2020-06-20 09:56] VITALS: BP 122/78
[2020-06-20] MEDS: ENOXAPARIN 300 MG/3 ML (LOVENOX) MULTI-DOSE VIAL SQ SCH ×2 (10:49→22:00)
[2020-06-20 14:10] VITALS: BP 147/108
--- NOTE | 2020-06-20 14:20 | NUR ---
CM/SS: Call from [facility] - [phone] - she is checking on the status of the pt. She would like to ensure that pt would have a follow up appointments with their clinic at the time of discharge. This worker will keep her informed as to the status of the pt and date of discharge.
--- NOTE | 2020-06-20 14:24 | NUR ---
Note pt is having TF tolerance issues (regurgitation). Pt may be a candidate for TPN as it appears he is lacking gut function. If TPN is the plan of care, would recommend a formula providing 2250 kcal (15 kcal/kg) and 120 g Pro (0.8 g Pro/kg). Will continue to follow and reassess as pt needs, intake, and status change. Carl Trinh MS RD LD [phone] cell
[2020-06-20] MEDS: LABETALOL HCL 20 MG/4 ML VIAL IV PRN (16:19)
[2020-06-20] MEDS: RT-ALBUTEROL INHALER HFA (VENTOLIN HFA) 18 GM IH PRN ×3 (19:06→22:47)
[2020-06-20 19:17] VITALS: BP 156/90
[2020-06-20 22:48] VITALS: BP 149/82
[2020-06-21] VITALS (7 sets, daily range): BP systolic 116–151; BP diastolic 72–102
[2020-06-21] MEDS: DexMEDEtomidine PRE MIX 100 ML IV SCH ×13 (00:27→23:22)
[2020-06-21] MEDS: RT-ALBUTEROL INHALER HFA (VENTOLIN HFA) 18 GM IH PRN (01:54)
[2020-06-21] MEDS: aCETylcysteine 20% (MUCOMYST) 30ML SOLN VIAL INH SCH ×4 (01:54→21:45)
[2020-06-21] MEDS: PROPOFOL DRIP (ICU) 100 ML IV SCH ×4 (02:07→21:27)
[2020-06-21] MEDS: fentaNYL DRIP PRE-MIX 250 ML IV SCH ×5 (02:29→23:33)
[2020-06-21 03:03] LABS: BASOPHILS % (AUTO) 0 % (0-10); EOSINOPHILS % (AUTO) 0 % (0-10); HEMATOCRIT 28 % (40-54); HEMOGLOBIN 8.9 g/dL (13.3-17.7); LYMPHOCYTES % (AUTO) 9 % (12-44); MEAN CORPUSCULAR HEMOGLOBIN 29 pg (25-34); MEAN CORPUSCULAR HGB CONC 32 g/dL (32-36); MEAN CORPUSCULAR VOLUME 90 fL (80-99); MEAN PLATELET VOLUME 9.3 fL (9.0-12.2); MONOCYTES % (AUTO) 8 % (0-12); NEUTROPHILS # (AUTO) 9.5 10^3/uL (1.8-7.8); NEUTROPHILS % (AUTO) 82 % (42-75); PLATELET COUNT 449 10^3/uL (130-400); WHITE BLOOD COUNT 11.6 10^3/uL (4.3-11.0)
[2020-06-21 03:05] LABS: CHLORIDE 106 MMOL/L (98-107); POTASSIUM 4.1 MMOL/L (3.6-5.0); SODIUM 142 MMOL/L (135-145)
[2020-06-21 03:06] LABS: CALCIUM 7.8 MG/DL (8.5-10.1)
[2020-06-21 03:07] LABS: GLUCOSE 174 MG/DL (70-105)
[2020-06-21 03:08] LABS: CARBON DIOXIDE 26 MMOL/L (21-32)
[2020-06-21 03:10] LABS: PHOSPHORUS 2.5 MG/DL (2.3-4.7)
[2020-06-21 03:11] LABS: CREATININE SERUM 0.55 MG/DL (0.60-1.30); GFR ESTIMATED > 60
[2020-06-21 03:12] LABS: BUN/CREATININE RATIO 11
[2020-06-21 03:13] LABS: MAGNESIUM 2.1 MG/DL (1.6-2.4)
[2020-06-21 03:52] LABS: ATYPICAL LYMPHOCYTES 3 %; BAND NEUTROPHILS 1 %; HYPOCHROMASIA SLIGHT; LYMPHOCYTES % (MANUAL) 9 %; MICROCYTOSIS MODERATE; MONOCYTES % (MANUAL) 13 %; NEUTROPHILS % (MANUAL) 74 %; POLYCHROMASIA SLIGHT; TOXIC GRANULATION/VACUOLAZATIO 2+
--- NOTE | 2020-06-21 05:20 | Pulmonary Progress Note ---
Subjective Time Seen by a Provider: 05:15 Subjective/Events-last exam Pt is sedated on vent. Sepsis Event Evaluation Height, Weight, BMI Height: 6'0.00" Weight: 360lbs. 0.0oz. 163.150730li; 46.28 BMI Method: Exam Exam Vital Signs Date Time Temp Pulse Resp B/P (MAP) Pulse Ox O2 Delivery O2 Flow Rate FiO2 06/21/20 04:10 118/79 06/21/20 04:09 89 06/21/20 04:00 37.8 88 20 118/79 (92) 93 Mechanical Ventilator 40.00 06/21/20 03:00 37.7 89 20 114/76 (89) 95 Mechanical Ventilator 40.00 06/21/20 02:07 118/78 06/21/20 02:00 37.6 97 28 118/78 (91) 95 Mechanical Ventilator 40.00 06/21/20 01:55 102 20 96 50 06/21/20 01:00 37.6 115 17 133/77 (95) 95 Mechanical Ventilator 40.00 06/21/20 01:00 115 06/21/20 00:34 Mechanical Ventilator 40.00 06/21/20 00:27 125 06/21/20 00:27 141/78 06/21/20 00:00 37.7 124 20 139/78 (98) 98 Mechanical Ventilator 50.00 06/20/20 23:00 37.9 125 27 148/85 (106) 83 Mechanical Ventilator 50.00 06/20/20 22:48 125 20 90 50 06/20/20 22:00 37.9 130 18 154/85 (108) 91 Mechanical Ventilator 50.00 06/20/20 21:00 37.9 138 19 159/93 (115) 98 Mechanical Ventilator 50.00 06/20/20 20:58 161/90 06/20/20 20:57 37.9 138 20 161/90 (113) 98 Mechanical Ventilator 50.00 06/20/20 20:00 97 Mechanical Ventilator 50 06/20/20 20:00 37.9 135 20 146/82 (103) 94 Mechanical Ventilator 100.00 06/20/20 19:56 144/87 06/20/20 19:17 130 25 98 50 06/20/20 19:00 37.9 131 13 153/83 (106) 96 Mechanical Ventilator 100.00 06/20/20 19:00 131 06/20/20 18:00 37.9 126 19 155/89 (111) 95 Mechanical Ventilator 100.00 06/20/20 17:00 38.1 116 14 149/94 (112) 96 Mechanical Ventilator 100.00 06/20/20 16:00 37.8 134 13 155/94 (114) 97 Mechanical Ventilator 100.00 06/20/20 15:00 37.6 133 11 154/97 (116) 96 Mechanical Ventilator 100.00 06/20/20 14:10 126 26 95 50 06/20/20 14:00 37.6 130 9 155/96 (115) 98 Mechanical Ventilator 100.00 06/20/20 13:12 147/89 06/20/20 13:00 37.4 123 19 145/90 (108) 97 Mechanical Ventilator 100.00 06/20/20 12:55 120 06/20/20 12:00 37.4 113 16 142/87 (105) 95 Mechanical Ventilator 100.00 06/20/20 11:00 37.3 114 12 140/90 (107) 91 Mechanical Ventilator 100.00 06/20/20 10:38 Mechanical Ventilator 100.00 06/20/20 10:00 37.3 97 20 123/78 (93) 96 Mechanical Ventilator 70.00 06/20/20 09:56 95 22 95 75 06/20/20 09:00 37.5 93 18 118/74 (89) 95 Mechanical Ventilator 70.00 06/20/20 08:22 106/69 06/20/20 08:22 84 06/20/20 08:00 37.8 84 19 112/75 (87) 96 Mechanical Ventilator 70.00 06/20/20 08:00 95 Mechanical Ventilator 70 06/20/20 07:00 38.0 82 16 106/70 (82) 95 Mechanical Ventilator 70.00 06/20/20 06:47 80 06/20/20 06:46 81 22 95 80 06/20/20 06:00 37.9 82 10 107/70 (82) 89 Mechanical Ventilator 70.00 I & O 06/21/20 07:00 Intake Total 60 ml Output Total 2000 ml Balance -1940 ml Height & Weight Height: 6'0.00" Weight: 360lbs. 0.0oz. 163.986524uf; 46.28 BMI Method: General Appearance: Obese HEENT: Other (Left large herpetic lesion) Neck: Limited Range of Motion Respiratory: Crackles, Decreased Breath Sounds Cardiovascular: Regular Rate, Rhythm, No Gallop, No Murmur Capillary Refill: Less Than 3 Seconds Gastrointestinal: soft, no organomegaly Extremity: Pedal Edema Neurologic/Psychiatric: Other Skin: Normal Color, Warm/Dry Results Lab Laboratory Tests 06/20/20 03:40 06/21/20 02:40 Assessment/Plan Assessment/Plan COVID with pneumonia and acute respiratory failure -Pt was intubated 06/10 -EICU managed pt through the weeked -Vent 400/21/05 --- 40% -Decrease PEEP from 18 to 16 -Precedex 1.5, propofol 10, Fentanyl 300, and Versed 10mg, -D/C Ketamine and continue Precedex - TF per dietary recs -EICU managed through the -D/C IVF -Decadron -CVP - Proning -callejas cultures pending -Pt does not qualify for Remdesivir Pneumonia -Secondary to persistent fever and worsening Leukocytosis will restart Zosyn -Continue Vanco and Eraxis Hypertriglyceridemia -improving Persistent high fevers -Repeat callejas cultures -Vanco eraxsis -Add Eraxis for now HTN and sinus tachycardia -Lopressor 25mg BID hypokalemia -Replace DM s/p Acute DKA -D5 LR Levemier -SSI -10 units of Levemir -Hold home PO diabetic meds Leukocytosis - currently on Zosyn -Continue to monitor -Recheck PCT Morbid obesity DVT/GI ppx -ortega Elias JASON M DO Jun 21, 2020 05:20
[2020-06-21] MEDS ORDERED: PIPERACILLIN/TAZOBACTAM 4.5 GM in NS (IVPB) 100 ML IV ONE (05:30)
[2020-06-21] MEDS: POTASSIUM CL 10MEQ/50ML IVPB 50 ML IV SCH (05:41)
[2020-06-21] MEDS: KCL 20 MEQ TAB (K-DUR) PO SCH (05:41)
[2020-06-21] MEDS: inSUlin ASPART (NovoLOG) 1 UNIT/0.01 ML (CHARGE PER UNIT) SC SCH ×4 (05:41→23:23)
[2020-06-21] MEDS: MAGNESIUM 1 GM/100 ML IVPB 100 ML IV SCH (05:41)
[2020-06-21] MEDS ORDERED: PIPERACILLIN/TAZO 4.5 GM VIAL (ZOSYN) IV ONE (05:57)
[2020-06-21] MEDS: dexAMETHasone 6 MG TAB (DECADRON) PO SCH (06:12)
[2020-06-21] MEDS: DOCOSANOL 10 % CREAM (ABREVA) 2 GM TP SCH ×5 (06:12→19:51)
--- NOTE | 2020-06-21 07:11 | Diagnostic Imaging Report ---
INDICATION: COVID pneumonia. Comparison with 06/20/2020 FINDINGS: ET tube, NG tube and right central line remain in good position. Lungs are well-aerated. There has been moderate decrease in density of infiltrate within the lungs bilaterally though patchy infiltrates do remain present. The heart is not enlarged. IMPRESSION: 1. There has been moderate decrease in the pulmonary infiltrates since previous exam. 2. Tubes and lines remain in good position. Dictated by: Dictated on workstation # [id number]
[2020-06-21] MEDS: RT-ALBUTEROL INHALER HFA (VENTOLIN HFA) 18 GM IH SCH ×5 (07:34→21:45)
--- NOTE | 2020-06-21 08:11 | Physical Therapy Progress Note ---
Therapy Progress Note Patient is sedated and intubated. PT will continue to monitor patient status. LYNDSAY PERRY PT Jun 21, 2020 08:11
[2020-06-21] MEDS: ANIDULAFUNGIN INJECTION 100 MG in NS (IVPB) 100 ML IV SCH (08:44)
[2020-06-21] MEDS: VANCOMYCIN INJECTION 2,250 MG in NS IV 500 ML 500 ML IV SCH ×3 (08:44→23:23)
[2020-06-21] MEDS: MIDAZOLAM DRIP PRE-MIX 100 ML IV SCH ×2 (08:45→19:24)
[2020-06-21] MEDS: VALACYCLOVIR 500 MG TAB (VALTREX) PO SCH ×2 (08:48→19:52)
[2020-06-21] MEDS: FAMOTIDINE 20 MG (PEPCID) TABLET PO SCH ×2 (08:48→19:52)
[2020-06-21] MEDS: METOCLOPRAMIDE INJ 10 MG/2 ML (REGLAN) IVP SCH ×2 (08:48→18:03)
[2020-06-21] MEDS: LACTULOSE SYRUP 10GM/15ML (ENULOSE) 30ML UDC PO SCH ×2 (08:49→19:50)
[2020-06-21] MEDS: DOCUSATE SODIUM 100 MG (COLACE) CAP PO SCH ×2 (08:49→19:52)
[2020-06-21] MEDS: meTOprolol TARTRATE 25 MG (LOPRESSOR) TABLET PO SCH ×2 (08:49→19:52)
[2020-06-21] MEDS: risperiDONE 1 MG (RisperDAL) TAB PO SCH ×2 (08:49→19:52)
--- NOTE | 2020-06-21 09:48 | Diagnostic Imaging Report ---
Indication: Evaluate for pneumothorax. Time of exam: 9:44 AM Correlation is made to prior chest from earlier same day. ET tube has its tip at the level of the clavicular heads well above the leidy. NG tube passes below the diaphragm. There is a right IJ line and right upper extremity PICC line with tips overlying the SVC. Congestive changes with bilateral infiltrates are again noted. There is no pneumothorax identified. No significant effusion is seen. Impression: Stable chest and stable bilateral infiltrates since exam earlier the same day. No pneumothorax is identified. Dictated by: Dictated on workstation # [id number]
[2020-06-21] MEDS: PIPERACILLIN/TAZOBACTAM (BULK) 4.5 GM in NS (IVPB) 100 ML IV SCH ×2 (10:34→18:03)
[2020-06-21] MEDS: ENOXAPARIN 300 MG/3 ML (LOVENOX) MULTI-DOSE VIAL SQ SCH ×2 (10:35→23:23)
--- NOTE | 2020-06-21 15:14 | NUR ---
Note pt is having TF tolerance issues (regurgitation). Note pt currently receiving lactulose and Reglan to gut motility. Pt may be a candidate for TPN if there is no gut function. If TPN is the plan of care, would recommend a formula providing 2250 kcal (15 kcal/kg) and 120 g Pro (0.8 g Pro/kg). Will continue to follow and reassess as pt needs, intake, and status change. Carl Trinh MS RD LD [phone] cell
[2020-06-21] MEDS: ACETAMINOPHEN 650 MG SUPP (TYLENOL) PR PRN (19:51)
[2020-06-22] MEDS: RT-ALBUTEROL INHALER HFA (VENTOLIN HFA) 18 GM IH SCH ×5 (01:11→18:24)
[2020-06-22] MEDS: aCETylcysteine 20% (MUCOMYST) 30ML SOLN VIAL INH SCH ×4 (01:11→21:30)
[2020-06-22 01:12] VITALS: BP 145/93
[2020-06-22] MEDS: PROPOFOL DRIP (ICU) 100 ML IV SCH ×5 (02:16→22:51)
[2020-06-22 02:17] LABS: BASOPHILS # (AUTO) 0.1 10^3/uL (0.0-0.1); BASOPHILS % (AUTO) 1 % (0-10); EOSINOPHILS # (AUTO) 0.1 10^3/uL (0.0-0.3); EOSINOPHILS % (AUTO) 1 % (0-10); HEMATOCRIT 29 % (40-54); HEMOGLOBIN 9.2 g/dL (13.3-17.7); LYMPHOCYTES # (AUTO) 2.3 10^3/uL (1.0-4.0); LYMPHOCYTES % (AUTO) 24 % (12-44); MEAN CORPUSCULAR HEMOGLOBIN 29 pg (25-34); MEAN CORPUSCULAR HGB CONC 32 g/dL (32-36); MEAN CORPUSCULAR VOLUME 91 fL (80-99); MEAN PLATELET VOLUME 9.1 fL (9.0-12.2); MONOCYTES % (AUTO) 11 % (0-12); NEUTROPHILS # (AUTO) 5.9 10^3/uL (1.8-7.8); NEUTROPHILS % (AUTO) 63 % (42-75); PLATELET COUNT 454 10^3/uL (130-400); WHITE BLOOD COUNT 9.4 10^3/uL (4.3-11.0)
[2020-06-22 02:37] LABS: ABG BASE EXCESS 3.9 MMOL/L (-2.5-2.5); ABG OXYGEN SATURATION 74 % (94-100); ABG PCO2 58 MMHG (35-45); ABG PO2 50 MMHG (79-93); ABG TCO2 30.8 MMOL/L (21.0-31.0)
[2020-06-22 02:38] LABS: ALLENS TEST YES-POS; INSPIRED O2 90%
[2020-06-22 02:39] LABS: PATIENT TEMP 38.3; VENTILATOR YES
[2020-06-22 02:40] LABS: ABG PH 7.33 (7.37-7.43)
[2020-06-22 02:56] LABS: CHLORIDE 108 MMOL/L (98-107); POTASSIUM 3.6 MMOL/L (3.6-5.0); SODIUM 143 MMOL/L (135-145)
[2020-06-22 02:57] LABS: CALCIUM 7.8 MG/DL (8.5-10.1)
[2020-06-22 02:58] LABS: GLUCOSE 180 MG/DL (70-105); TRIGLYCERIDES 268 MG/DL (<150)
[2020-06-22 02:59] LABS: CARBON DIOXIDE 29 MMOL/L (21-32)
[2020-06-22 03:01] LABS: PHOSPHORUS 2.2 MG/DL (2.3-4.7)
[2020-06-22 03:02] LABS: CREATININE SERUM 0.58 MG/DL (0.60-1.30); GFR ESTIMATED > 60
[2020-06-22 03:03] LABS: BUN/CREATININE RATIO 16
[2020-06-22 03:04] LABS: MAGNESIUM 1.9 MG/DL (1.6-2.4)
[2020-06-22] MEDS: fentaNYL DRIP PRE-MIX 250 ML IV SCH ×6 (03:39→19:49)
[2020-06-22] MEDS: PIPERACILLIN/TAZOBACTAM (BULK) 4.5 GM in NS (IVPB) 100 ML IV SCH ×3 (03:39→16:56)
[2020-06-22] MEDS: DexMEDEtomidine PRE MIX 100 ML IV SCH ×11 (03:40→20:22)
[2020-06-22] MEDS: POTASSIUM CL 10MEQ/50ML IVPB 50 ML IV SCH ×3 (04:15→06:00)
[2020-06-22] MEDS: MAGNESIUM 1 GM/100 ML IVPB 100 ML IV SCH (04:16)
[2020-06-22] MEDS: KCL 20 MEQ TAB (K-DUR) PO SCH (04:16)
--- NOTE | 2020-06-22 04:40 | Pulmonary Progress Note ---
Subjective Time Seen by a Provider: 04:35 Subjective/Events-last exam Pt is sedated on vent. Sepsis Event Evaluation Height, Weight, BMI Height: 6'0.00" Weight: 360lbs. 0.0oz. 163.895196eu; 46.28 BMI Method: Exam Exam Vital Signs Date Time Temp Pulse Resp B/P (MAP) Pulse Ox O2 Delivery O2 Flow Rate FiO2 06/22/20 04:00 38.1 78 131/88 (102) 94 Mechanical Ventilator 60.00 06/22/20 04:00 Mechanical Ventilator 60.00 06/22/20 03:41 Mechanical Ventilator 70.00 06/22/20 03:40 78 128/74 06/22/20 03:00 38.1 79 131/81 (98) 94 Mechanical Ventilator 70.00 06/22/20 02:16 81 141/89 06/22/20 02:15 Mechanical Ventilator 70.00 06/22/20 02:00 38.4 80 135/88 (104) 95 Mechanical Ventilator 90.00 06/22/20 02:00 Mechanical Ventilator 90.00 06/22/20 01:12 80 24 94 60 06/22/20 01:00 38.8 81 23 136/94 (108) 93 Mechanical Ventilator 45.00 06/22/20 01:00 81 06/22/20 00:00 38.9 81 15 144/93 (110) 93 Mechanical Ventilator 45.00 06/21/20 23:22 82 06/21/20 23:21 82 140/91 06/21/20 23:00 38.9 81 18 140/91 (107) 90 Mechanical Ventilator 45.00 06/21/20 22:00 39.0 80 19 147/95 (112) 92 Mechanical Ventilator 45.00 06/21/20 21:45 80 23 92 60 06/21/20 21:27 81 151/97 06/21/20 21:00 39.0 82 20 148/98 (115) 93 Mechanical Ventilator 45.00 06/21/20 20:21 39.0 06/21/20 20:00 95 Mechanical Ventilator 60 06/21/20 20:00 37.9 80 18 144/95 (111) 94 Mechanical Ventilator 45.00 06/21/20 19:51 37.9 06/21/20 19:45 Mechanical Ventilator 45.00 06/21/20 19:24 82 20 144/92 06/21/20 19:23 37.8 82 20 144/92 94 Mechanical Ventilator 60.00 06/21/20 19:22 37.8 82 20 144/92 95 Mechanical Ventilator 60.00 06/21/20 19:00 Mechanical Ventilator 60.00 06/21/20 19:00 38.0 80 18 141/94 (110) 95 Mechanical Ventilator 60.00 06/21/20 19:00 81 06/21/20 18:32 80 23 95 60 06/21/20 18:00 37.8 77 17 146/99 (115) 96 Mechanical Ventilator 100.00 06/21/20 17:00 37.8 79 20 146/102 (117) 96 Mechanical Ventilator 100.00 06/21/20 16:00 37.7 79 21 143/100 (114) 96 Mechanical Ventilator 100.00 06/21/20 15:47 37.7 79 20 144/99 95 Mechanical Ventilator 80.00 06/21/20 15:46 37.7 79 20 144/99 95 Mechanical Ventilator 80.00 06/21/20 15:00 37.7 80 16 144/99 (114) 96 Mechanical Ventilator 100.00 06/21/20 14:58 84 146/98 06/21/20 14:37 79 23 96 80 06/21/20 14:31 37.5 88 94 50 06/21/20 14:00 37.6 79 18 146/98 (114) 97 Mechanical Ventilator 100.00 06/21/20 13:00 37.5 79 15 146/100 (115) 96 Mechanical Ventilator 100.00 06/21/20 12:42 80 06/21/20 12:33 37.5 80 20 147/103 97 Mechanical Ventilator 100.00 06/21/20 12:32 37.5 80 20 147/103 97 Mechanical Ventilator 100.00 06/21/20 12:00 37.5 81 20 145/103 (117) 97 Mechanical Ventilator 100.00 06/21/20 11:00 37.5 84 13 147/102 (117) 98 Mechanical Ventilator 100.00 06/21/20 10:46 Mechanical Ventilator 100.00 06/21/20 10:00 36.3 85 18 126/85 (99) 95 Mechanical Ventilator 35.00 06/21/20 09:40 88 22 94 50 06/21/20 09:07 85 130/85 06/21/20 09:00 38.0 84 20 127/82 (97) 94 Mechanical Ventilator 35.00 06/21/20 08:48 38.0 85 20 130/85 93 Mechanical Ventilator 35.00 06/21/20 08:47 38.0 85 20 130/85 93 Mechanical Ventilator 35.00 06/21/20 08:45 85 20 130/85 06/21/20 08:09 Mechanical Ventilator 35.00 06/21/20 08:00 93 Mechanical Ventilator 35 06/21/20 08:00 37.9 85 19 130/85 (100) 94 Mechanical Ventilator 40.00 06/21/20 07:36 86 20 94 35 06/21/20 07:00 38.0 87 16 123/82 (96) 97 Mechanical Ventilator 40.00 06/21/20 06:51 88 06/21/20 06:00 38.0 95 20 117/71 (86) 97 Mechanical Ventilator 40.00 06/21/20 05:00 37.9 91 20 114/72 (86) 96 Mechanical Ventilator 40.00 I & O 06/22/20 07:00 Intake Total 1810 ml Output Total 1700 ml Balance 110 ml Height & Weight Height: 6'0.00" Weight: 360lbs. 0.0oz. 163.721229dj; 46.28 BMI Method: General Appearance: Obese HEENT: Other (Left large herpetic lesion) Neck: Limited Range of Motion Respiratory: Crackles, Decreased Breath Sounds Cardiovascular: Regular Rate, Rhythm, No Gallop, No Murmur Capillary Refill: Less Than 3 Seconds Gastrointestinal: soft, no organomegaly Extremity: Pedal Edema Neurologic/Psychiatric: Other Skin: Normal Color, Warm/Dry Results Lab Laboratory Tests 06/21/20 02:40 06/22/20 02:10 Assessment/Plan Assessment/Plan COVID with pneumonia and acute respiratory failure -Pt was intubated 06/10 -EICU managed pt through the weeked -Vent / --- 60% -Precedex 1.5, propofol 25, Fentanyl 300, and Versed 10mg, - Hold TF secondary to intolerance -Will start Lasix BID -D/C IVF -Decadron -CVP - Proning -callejas cultures pending -Pt does not qualify for Remdesivir Pneumonia -Continue Zosyn Vanco and Eraxis Hypertriglyceridemia -improving Persistent high fevers -Repeat callejas cultures -Vanco eraxsis -Add Eraxis for now HTN and sinus tachycardia -Lopressor 25mg BID hypokalemia -Replace DM s/p Acute DKA -D5 LR Levemier -SSI -10 units of Levemir -Hold home PO diabetic meds Leukocytosis - currently on Zosyn -Continue to monitor -Recheck PCT Morbid obesity DVT/GI ppx -Lovenox , pepcid I called and discussed with pt's family and halfway house counselor present for conversation. Family decided to make him DNR/No Code Blue. His mom is a nurse and understands everything in detail. I answered all questions to the best of my ability. Critical Care: Critically Ill Patient Time spent with patient (mins): 60 NAT BRIGHT DO Jun 22, 2020 04:40
[2020-06-22] MEDS ORDERED: HALOPERIDOL 5 MG/ML (HALDOL) VIAL IM PRN (04:45)
[2020-06-22] MEDS ORDERED: POTASSIUM PHOSPHATE INJ 30 MM in NS (IVPB) 250 ML IV ONE (04:45)
[2020-06-22] MEDS: DOCOSANOL 10 % CREAM (ABREVA) 2 GM TP SCH ×5 (05:59→19:58)
[2020-06-22] MEDS: dexAMETHasone 6 MG TAB (DECADRON) PO SCH (05:59)
[2020-06-22] MEDS: inSUlin ASPART (NovoLOG) 1 UNIT/0.01 ML (CHARGE PER UNIT) SC SCH ×4 (05:59→23:45)
[2020-06-22] MEDS: LORazepam INJ 2 MG/ML (ATIVAN) VIAL IVP PRN ×2 (06:20→08:38)
[2020-06-22 06:32] VITALS: BP 117/80
[2020-06-22] MEDS: MIDAZOLAM DRIP PRE-MIX 100 ML IV SCH ×3 (06:45→22:52)
--- NOTE | 2020-06-22 08:01 | Diagnostic Imaging Report ---
INDICATION: COVID pneumonia. Comparison made with prior examination from 06/21/2020 FINDINGS: There are diffuse bilateral pulmonary infiltrates. Heart size is normal. There is no pleural effusion or pneumothorax. Lines and tubes are in satisfactory position. IMPRESSION: Diffuse bilateral airspace disease suspect for underlying COVID pneumonia. Recommend clinical correlation. Report was faxed to [facility] Infection Control by ming at 8:00AM. Dictated by: Dictated on workstation # [id number]
--- NOTE | 2020-06-22 08:13 | Physical Therapy Progress Note ---
Therapy Progress Note Patient is sedated and intubated. PT will continue to monitor patient status. ROSENDA ZHONG PT Jun 22, 2020 08:13
[2020-06-22] MEDS ORDERED: PROPOFOL DRIP (ICU) 100 ML IV ONE (08:54)
[2020-06-22] MEDS: VANCOMYCIN INJECTION 2,250 MG in NS IV 500 ML 500 ML IV SCH ×2 (09:06→16:05)
[2020-06-22] MEDS: FUROSEMIDE 40 MG/4 ML INJ (LASIX) IVP SCH ×2 (09:07→19:57)
[2020-06-22] MEDS: PANTOPRAZOLE 40 MG (PROTONIX) VIAL IV SCH (09:07)
[2020-06-22] MEDS: ANIDULAFUNGIN INJECTION 100 MG in NS (IVPB) 100 ML IV SCH (09:10)
[2020-06-22] MEDS: METOCLOPRAMIDE INJ 10 MG/2 ML (REGLAN) IVP SCH ×2 (09:11→16:55)
[2020-06-22] MEDS: meTOprolol TARTRATE 25 MG (LOPRESSOR) TABLET PO SCH ×2 (09:31→20:00)
[2020-06-22] MEDS: LACTULOSE SYRUP 10GM/15ML (ENULOSE) 30ML UDC PO SCH ×2 (09:31→19:57)
[2020-06-22] MEDS: DOCUSATE SODIUM 100 MG (COLACE) CAP PO SCH ×2 (09:31→19:58)
[2020-06-22] MEDS: ENOXAPARIN 300 MG/3 ML (LOVENOX) MULTI-DOSE VIAL SQ SCH ×2 (09:52→22:52)
[2020-06-22] MEDS: VALACYCLOVIR 500 MG TAB (VALTREX) PO SCH ×2 (09:57→19:57)
[2020-06-22 10:04] VITALS: BP 133/91
[2020-06-22] MEDS: CISATRACURIUM INJECTION 100 MG in NS (IVPB) 200 ML IV SCH ×4 (11:27→23:44)
--- NOTE | 2020-06-22 13:56 | Physical Therapy Progress Note ---
Therapy Progress Note Non skilled PROM in available planes B U/LE. JAS TEMPLE PT Jun 22, 2020 13:56
[2020-06-22 14:09] VITALS: BP 156/104
--- NOTE | 2020-06-22 14:59 | NUR ---
Note pt is having TF tolerance issues (high residuals). Note pt currently receiving lactulose and Reglan to gut motility. Pt may be a candidate for TPN if there is no gut function. If TPN is the plan of care, would recommend a formula providing 2250 kcal (15 kcal/kg) and 120 g Pro (0.8 g Pro/kg). Will continue to follow and reassess as pt needs, intake, and status change. Carl Trinh, RD LD [phone] cell
[2020-06-22 18:25] VITALS: BP 144/91
[2020-06-22 21:30] VITALS: BP 127/81
[2020-06-23] MEDS: DexMEDEtomidine PRE MIX 100 ML IV SCH ×13 (00:02→21:02)
[2020-06-23 01:26] VITALS: BP 116/74
[2020-06-23] MEDS: RT-ALBUTEROL INHALER HFA (VENTOLIN HFA) 18 GM IH SCH ×6 (01:26→22:37)
[2020-06-23] MEDS: fentaNYL DRIP PRE-MIX 250 ML IV SCH ×6 (02:08→20:14)
[2020-06-23] MEDS: PROPOFOL DRIP (ICU) 100 ML IV SCH ×6 (02:09→22:08)
[2020-06-23 02:17] LABS: BASOPHILS % (AUTO) 1 % (0-10); EOSINOPHILS % (AUTO) 1 % (0-10); HEMATOCRIT 29 % (40-54); HEMOGLOBIN 9.1 g/dL (13.3-17.7); LYMPHOCYTES % (AUTO) 26 % (12-44); MEAN CORPUSCULAR HEMOGLOBIN 29 pg (25-34); MEAN CORPUSCULAR HGB CONC 32 g/dL (32-36); MEAN CORPUSCULAR VOLUME 91 fL (80-99); MEAN PLATELET VOLUME 9.2 fL (9.0-12.2); MONOCYTES # (AUTO) 0.9 10^3/uL (0.0-1.0); MONOCYTES % (AUTO) 11 % (0-12); NEUTROPHILS # (AUTO) 4.9 10^3/uL (1.8-7.8); NEUTROPHILS % (AUTO) 62 % (42-75); PLATELET COUNT 362 10^3/uL (130-400)
[2020-06-23 02:22] LABS: ABG BASE EXCESS 7.1 MMOL/L (-2.5-2.5); ABG OXYGEN SATURATION 96 % (94-100); ABG PCO2 61 MMHG (35-45); ABG PH 7.35 (7.37-7.43); ABG PO2 88 MMHG (79-93); ABG TCO2 34.3 MMOL/L (21.0-31.0)
[2020-06-23 02:25] LABS: CHLORIDE 103 MMOL/L (98-107); POTASSIUM 3.5 MMOL/L (3.6-5.0); SODIUM 142 MMOL/L (135-145)
[2020-06-23 02:26] LABS: CALCIUM 7.8 MG/DL (8.5-10.1)
[2020-06-23 02:27] LABS: ALLENS TEST YES-POS; GLUCOSE 170 MG/DL (70-105); INSPIRED O2 30%; PATIENT TEMP 37.5; VENTILATOR YES
[2020-06-23 02:28] LABS: CARBON DIOXIDE 31 MMOL/L (21-32)
[2020-06-23 02:30] LABS: PHOSPHORUS 3.2 MG/DL (2.3-4.7)
[2020-06-23 02:31] LABS: CREATININE SERUM 0.53 MG/DL (0.60-1.30); GFR ESTIMATED > 60
[2020-06-23 02:32] LABS: BUN/CREATININE RATIO 13
[2020-06-23 02:33] LABS: MAGNESIUM 1.9 MG/DL (1.6-2.4)
[2020-06-23] MEDS: MAGNESIUM 1 GM/100 ML IVPB 100 ML IV SCH (02:38)
[2020-06-23] MEDS: KCL 20 MEQ TAB (K-DUR) PO SCH (02:38)
[2020-06-23] MEDS: POTASSIUM CL 10MEQ/50ML IVPB 50 ML IV SCH ×3 (02:38→05:15)
[2020-06-23] MEDS: CISATRACURIUM INJECTION 100 MG in NS (IVPB) 200 ML IV SCH (03:25)
[2020-06-23] MEDS: PIPERACILLIN/TAZOBACTAM (BULK) 4.5 GM in NS (IVPB) 100 ML IV SCH ×3 (03:39→17:47)
--- NOTE | 2020-06-23 04:27 | Pulmonary Progress Note ---
Subjective Time Seen by a Provider: 04:21 Subjective/Events-last exam Sedated on vent. Sepsis Event Evaluation Height, Weight, BMI Height: 6'0.00" Weight: 360lbs. 0.0oz. 163.780026di; 46.28 BMI Method: Exam Exam Vital Signs Date Time Temp Pulse Resp B/P (MAP) Pulse Ox O2 Delivery O2 Flow Rate FiO2 06/23/20 03:37 20 Mechanical Ventilator 30.00 06/23/20 03:36 70 119/79 06/23/20 02:09 73 117/78 06/23/20 01:26 69 20 96 30 06/23/20 01:00 71 06/23/20 00:03 20 93 Mechanical Ventilator 30.00 06/23/20 00:02 72 117/74 06/23/20 00:00 Mechanical Ventilator 30.00 06/22/20 23:00 Mechanical Ventilator 40.00 06/22/20 22:52 77 20 126/83 06/22/20 22:51 78 126/83 06/22/20 22:00 38.7 79 21 126/83 (97) 94 Mechanical Ventilator 50.00 06/22/20 21:30 78 20 95 50 06/22/20 21:00 38.8 80 18 128/80 (96) 95 Mechanical Ventilator 50.00 06/22/20 20:30 Mechanical Ventilator 50.00 06/22/20 20:22 20 Mechanical Ventilator 45.00 06/22/20 20:21 80 135/93 06/22/20 20:00 38.7 82 19 131/83 (99) 93 Mechanical Ventilator 65.00 06/22/20 20:00 Mechanical Ventilator 65.00 06/22/20 20:00 96 Mechanical Ventilator 65 06/22/20 19:00 Mechanical Ventilator 75.00 06/22/20 19:00 38.7 77 19 143/86 (105) 95 Mechanical Ventilator 75.00 06/22/20 19:00 80 06/22/20 18:25 77 21 95 75 06/22/20 18:00 38.7 78 20 145/88 (107) 95 Mechanical Ventilator 100.00 06/22/20 17:00 38.8 79 17 148/91 (110) 95 Mechanical Ventilator 100.00 06/22/20 16:07 38.8 79 20 147/93 96 Mechanical Ventilator 75.00 06/22/20 16:06 38.8 79 20 147/93 96 Mechanical Ventilator 75.00 06/22/20 16:05 79 147/93 06/22/20 16:00 38.9 80 18 147/93 (111) 96 Mechanical Ventilator 100.00 06/22/20 15:00 38.8 80 18 147/96 (113) 97 Mechanical Ventilator 100.00 06/22/20 14:09 76 23 96 75 06/22/20 14:00 38.6 77 18 156/104 (121) 97 Mechanical Ventilator 100.00 06/22/20 13:18 38.6 80 20 150/112 97 Mechanical Ventilator 100.00 06/22/20 13:17 80 150/112 06/22/20 13:17 38.6 80 20 150/112 97 Mechanical Ventilator 100.00 06/22/20 13:04 80 06/22/20 13:00 38.5 76 17 158/98 (118) 97 Mechanical Ventilator 100.00 06/22/20 12:00 38.4 77 19 150/99 (116) 97 Mechanical Ventilator 100.00 06/22/20 11:00 38.4 80 14 150/99 (116) 97 Mechanical Ventilator 100.00 06/22/20 10:04 84 26 89 60 06/22/20 10:00 38.4 80 44 133/91 (105) 96 Mechanical Ventilator 100.00 06/22/20 09:13 38.4 87 23 142/87 96 Mechanical Ventilator 100.00 06/22/20 09:10 82 142/87 06/22/20 09:08 82 23 142/87 06/22/20 09:07 38.4 82 28 142/87 91 Mechanical Ventilator 100.00 06/22/20 09:00 38.4 86 30 142/87 (105) 87 Mechanical Ventilator 100.00 06/22/20 08:01 Mechanical Ventilator 100.00 06/22/20 08:00 88 Mechanical Ventilator 100 06/22/20 08:00 38.2 81 34 136/83 (100) 90 Mechanical Ventilator 60.00 06/22/20 07:00 38.1 78 12 130/85 (100) 91 Mechanical Ventilator 60.00 06/22/20 06:46 122/80 06/22/20 06:46 78 06/22/20 06:45 78 117/80 06/22/20 06:42 79 06/22/20 06:32 77 25 90 60 06/22/20 06:00 38.0 76 135/85 (102) 94 Mechanical Ventilator 60.00 06/22/20 05:00 38.0 77 129/88 (102) 95 Mechanical Ventilator 60.00 I & O 06/23/20 07:00 Intake Total 2352.5 ml Output Total 8000 ml Balance -5647.5 ml Height & Weight Height: 6'0.00" Weight: 360lbs. 0.0oz. 163.758557un; 46.28 BMI Method: General Appearance: Obese HEENT: Other (Left large herpetic lesion) Neck: Limited Range of Motion Respiratory: Crackles, Decreased Breath Sounds Cardiovascular: Regular Rate, Rhythm, No Gallop, No Murmur Capillary Refill: Less Than 3 Seconds Gastrointestinal: soft, no organomegaly Extremity: Pedal Edema Neurologic/Psychiatric: Other Skin: Normal Color, Warm/Dry Results Lab Laboratory Tests 06/22/20 02:10 06/23/20 02:00 Assessment/Plan Assessment/Plan COVID with pneumonia and acute respiratory failure -Pt was intubated 06/10 -EICU managed pt through the night -Vent 400/20/20--- 30% -Decrease PEEP to 16 -Precedex 1.5, propofol 25, Fentanyl 300, and Versed 10mg, - Hold TF secondary to intolerance -Lasix - Change to daily -Decadron -CVP - Proning -callejas cultures pending -Pt does not qualify for Remdesivir Pneumonia TM 38.7 -Continue Zosyn and Eraxis -s/p Vanco Hypertriglyceridemia -improving HTN and sinus tachycardia -Lopressor 25mg BID hypokalemia -Replace DM s/p Acute DKA Levemier -SSI -10 units of Levemir -Hold home PO diabetic meds Leukocytosis - currently on Zosyn -Continue to monitor -Recheck PCT Morbid obesity DVT/GI ppx -Theraputic dose ortega Elias JASON M DO Jun 23, 2020 04:27
[2020-06-23] MEDS: LACTATED RINGERS 1,000 ML IV SCH (05:10)
[2020-06-23] MEDS: inSUlin ASPART (NovoLOG) 1 UNIT/0.01 ML (CHARGE PER UNIT) SC SCH ×3 (05:11→17:40)
[2020-06-23] MEDS: DOCOSANOL 10 % CREAM (ABREVA) 2 GM TP SCH ×5 (05:11→21:01)
[2020-06-23] MEDS: aCETylcysteine 20% (MUCOMYST) 30ML SOLN VIAL INH SCH ×3 (06:54→18:33)
[2020-06-23 06:55] VITALS: BP 128/84
--- NOTE | 2020-06-23 07:04 | Diagnostic Imaging Report ---
INDICATION: Intubation. TECHNIQUE: Single view chest 10:47 PM. CORRELATION STUDY: 06/22/2020 FINDINGS: Endotracheal tube tip at the level of the thoracic inlet. Right IJ central line as well as right upper extremity central line are present. Heart size and mediastinum appear generally stable. Extensive five lobe infiltrates again demonstrated. Findings overall, however, appear slightly improved on the left. May be slightly more consolidated at the right lung base. IMPRESSION: 1. Bilateral pulmonary infiltrates are again demonstrated. Perhaps slightly improved on the left and slightly increased at the right lung base. Dictated by: Dictated on workstation # [id number]
--- NOTE | 2020-06-23 07:52 | Physical Therapy Progress Note ---
Therapy Progress Note Patient is sedated and intubated. PT will continue to monitor patient status. ROSENDA ZHONG PT Jun 23, 2020 07:52
[2020-06-23] MEDS: MIDAZOLAM DRIP PRE-MIX 100 ML IV SCH ×2 (08:08→17:37)
[2020-06-23] MEDS: PANTOPRAZOLE 40 MG (PROTONIX) VIAL IV SCH (08:09)
[2020-06-23] MEDS: meTOprolol TARTRATE 25 MG (LOPRESSOR) TABLET PO SCH ×2 (08:09→21:00)
[2020-06-23] MEDS: METOCLOPRAMIDE INJ 10 MG/2 ML (REGLAN) IVP SCH ×2 (08:09→17:39)
[2020-06-23] MEDS: VALACYCLOVIR 500 MG TAB (VALTREX) PO SCH ×2 (08:09→21:00)
[2020-06-23] MEDS: LACTULOSE SYRUP 10GM/15ML (ENULOSE) 30ML UDC PO SCH ×2 (08:09→21:00)
[2020-06-23] MEDS: DOCUSATE SODIUM 100 MG (COLACE) CAP PO SCH ×2 (08:10→21:00)
[2020-06-23] MEDS: FUROSEMIDE 40 MG/4 ML INJ (LASIX) IVP SCH (08:10)
[2020-06-23 10:46] VITALS: BP 147/97
[2020-06-23] MEDS: ENOXAPARIN 300 MG/3 ML (LOVENOX) MULTI-DOSE VIAL SQ SCH (10:51)
--- NOTE | 2020-06-23 11:29 | Physical Therapy Progress Note ---
Therapy Progress Note Non skilled PROM B U/LE in available planes. JAS TEMPLE PT Jun 23, 2020 11:29
[2020-06-23 15:16] VITALS: BP 144/88
--- NOTE | 2020-06-23 15:43 | NUR ---
Per Rodger RN, gastric residuals have decreased since 06/22. As long as they are trending down, would recommend initiation of TF of Pulmocare via 60ml bolus feeds q4h with 30ml free water flushes before/after each bolus. Monitor for tolerance. Will continue to follow and reassess as pt needs, intake, and status change. Carl Trinh, MS RD LD [phone] cell
[2020-06-23] MEDS: RT-ALBUTEROL INHALER HFA (VENTOLIN HFA) 18 GM IH PRN (18:33)
[2020-06-23 18:36] VITALS: BP 143/94
[2020-06-23 22:38] VITALS: BP 144/98
[2020-06-24] MEDS: ENOXAPARIN 300 MG/3 ML (LOVENOX) MULTI-DOSE VIAL SQ SCH ×2 (00:38→10:26)
[2020-06-24] MEDS: inSUlin ASPART (NovoLOG) 1 UNIT/0.01 ML (CHARGE PER UNIT) SC SCH ×4 (00:38→18:14)
[2020-06-24] MEDS: DexMEDEtomidine PRE MIX 100 ML IV SCH ×13 (00:39→22:22)
[2020-06-24] MEDS: fentaNYL DRIP PRE-MIX 250 ML IV SCH ×8 (02:10→20:25)
[2020-06-24] MEDS: MIDAZOLAM DRIP PRE-MIX 100 ML IV SCH ×3 (02:10→15:19)
[2020-06-24] MEDS: PROPOFOL DRIP (ICU) 100 ML IV SCH ×7 (02:10→22:21)
[2020-06-24 02:37] LABS: ABG BASE EXCESS 9.1 MMOL/L (-2.5-2.5); ABG OXYGEN SATURATION 98 % (94-100); ABG PCO2 63 MMHG (35-45); ABG PH 7.36 (7.37-7.43); ABG PO2 104 MMHG (79-93); ABG TCO2 36.3 MMOL/L (21.0-31.0)
[2020-06-24 02:38] LABS: ALLENS TEST YES-POS; BASOPHILS % (AUTO) 1 % (0-10); EOSINOPHILS # (AUTO) 0.1 10^3/uL (0.0-0.3); EOSINOPHILS % (AUTO) 1 % (0-10); HEMATOCRIT 29 % (40-54); INSPIRED O2 45%; LYMPHOCYTES % (AUTO) 32 % (12-44); MEAN CORPUSCULAR HEMOGLOBIN 28 pg (25-34); MEAN CORPUSCULAR HGB CONC 31 g/dL (32-36); MEAN CORPUSCULAR VOLUME 91 fL (80-99); MEAN PLATELET VOLUME 9.2 fL (9.0-12.2); MONOCYTES # (AUTO) 0.7 10^3/uL (0.0-1.0); MONOCYTES % (AUTO) 11 % (0-12); NEUTROPHILS # (AUTO) 3.5 10^3/uL (1.8-7.8); NEUTROPHILS % (AUTO) 55 % (42-75); PATIENT TEMP 38.1; PLATELET COUNT 355 10^3/uL (130-400); VENTILATOR YES; WHITE BLOOD COUNT 6.4 10^3/uL (4.3-11.0)
[2020-06-24 02:49] LABS: CHLORIDE 102 MMOL/L (98-107); POTASSIUM 3.4 MMOL/L (3.6-5.0); SODIUM 143 MMOL/L (135-145)
[2020-06-24 02:51] LABS: CALCIUM 7.9 MG/DL (8.5-10.1); GLUCOSE 163 MG/DL (70-105); TRIGLYCERIDES 292 MG/DL (<150)
[2020-06-24 02:53] LABS: CARBON DIOXIDE 33 MMOL/L (21-32)
[2020-06-24 02:55] LABS: CREATININE SERUM 0.52 MG/DL (0.60-1.30); GFR ESTIMATED > 60; PHOSPHORUS 2.5 MG/DL (2.3-4.7)
[2020-06-24 02:56] LABS: BUN/CREATININE RATIO 15
[2020-06-24] MEDS: KCL 20 MEQ TAB (K-DUR) PO SCH (03:09)
[2020-06-24] MEDS: POTASSIUM CL 10MEQ/50ML IVPB 50 ML IV SCH ×3 (03:09→05:29)
[2020-06-24] MEDS: MAGNESIUM 1 GM/100 ML IVPB 100 ML IV SCH (03:10)
[2020-06-24] MEDS: RT-ALBUTEROL INHALER HFA (VENTOLIN HFA) 18 GM IH SCH ×6 (03:12→22:47)
[2020-06-24 03:13] VITALS: BP 139/92
[2020-06-24] MEDS: aCETylcysteine 20% (MUCOMYST) 30ML SOLN VIAL INH SCH ×4 (03:13→19:11)
[2020-06-24] MEDS: PIPERACILLIN/TAZOBACTAM (BULK) 4.5 GM in NS (IVPB) 100 ML IV SCH ×3 (04:07→18:15)
[2020-06-24] MEDS: LACTATED RINGERS 1,000 ML IV SCH (05:29)
[2020-06-24] MEDS: DOCOSANOL 10 % CREAM (ABREVA) 2 GM TP SCH ×5 (05:30→20:23)
[2020-06-24 07:42] VITALS: BP 138/95
--- NOTE | 2020-06-24 07:55 | Diagnostic Imaging Report ---
INDICATION: COVID. Comparison made with prior examination of 06/22/2020. FINDINGS: There are diffuse bilateral pulmonary infiltrates. No pleural effusion or pneumothorax. Lines and tubes are in satisfactory position. IMPRESSION: Diffuse bilateral pulmonary infiltrates compatible with COVID pneumonia. Some underlying central pulmonary venous congestion cannot be excluded. Dictated by: Dictated on workstation # [id number]
[2020-06-24] MEDS: meTOprolol TARTRATE 25 MG (LOPRESSOR) TABLET PO SCH ×2 (08:05→20:24)
[2020-06-24] MEDS: METOCLOPRAMIDE INJ 10 MG/2 ML (REGLAN) IVP SCH ×2 (08:05→18:14)
[2020-06-24] MEDS: VALACYCLOVIR 500 MG TAB (VALTREX) PO SCH ×2 (08:05→20:24)
[2020-06-24] MEDS: PANTOPRAZOLE 40 MG (PROTONIX) VIAL IV SCH (08:05)
[2020-06-24] MEDS: FUROSEMIDE 40 MG/4 ML INJ (LASIX) IVP SCH (08:05)
[2020-06-24] MEDS: LACTULOSE SYRUP 10GM/15ML (ENULOSE) 30ML UDC PO SCH ×2 (08:05→20:24)
[2020-06-24] MEDS: DOCUSATE SODIUM 100 MG (COLACE) CAP PO SCH ×2 (08:06→20:24)
--- NOTE | 2020-06-24 11:13 | Physical Therapy Progress Note ---
Therapy Progress Note Patient is sedated and intubated. PT will continue to monitor patient status. DOMINGA BARCLAY DPT Jun 24, 2020 11:13
--- NOTE | 2020-06-24 12:51 | Progress Note - Hospitalist ---
Subjective HPI/CC On Admission Date Seen by Provider: Jun 24, 2020 Time Seen by Provider: 08:45 Subjective/Events-last exam He is intubated and sedated. Objective Exam Vital Signs Vital Signs Date Time Temp Pulse Resp B/P (MAP) Pulse Ox O2 Delivery O2 Flow Rate FiO2 06/24/20 11:00 38.1 71 20 141/93 (109) 95 Mechanical Ventilator 60.00 06/24/20 08:00 60 Capillary Refill : Less Than 3 Seconds General Appearance: No Apparent Distress, Obese, Other (intubated and sedated) Respiratory: No Respiratory Distress, Decreased Breath Sounds, Other (intubated and mechanically ventilated) Cardiovascular: Regular Rate, Rhythm, No Murmur Gastrointestinal: Normal Bowel Sounds, Soft Extremity: Normal Inspection, Pedal Edema Neurologic/Psychiatric: Other (sedated) Skin: Normal Color, Warm/Dry Results/Procedures Lab Laboratory Tests 06/24/20 02:15 Patient resulted labs reviewed. Imaging: Reviewed Imaging Report Assessment/Plan Assessment and Plan Assess & Plan/Chief Complaint ARDS due to COVID-19 PNA Hypercoagulable state due to COVID-19 Decadron s/p convalescent plasma Intubated 06/10 Intermittent proning TeleICU assisting with ventilator CT Chest negative for PE Therapeutic Lovenox Zosyn T2DM Levemir Sliding scale insulin Morbid obesity Clinically significant, no acute management needs DVT Prophylaxis: already receiving therapeutic anticoagulation Critical Care Critically Ill Patient Diagnosis/Problems Diagnosis/Problems (1) Acute respiratory distress syndrome (ARDS) due to COVID-19 virus Status: Acute (2) PNA (pneumonia) Status: Acute (3) T2DM (type 2 diabetes mellitus) Status: Acute (4) Morbid obesity Status: Chronic (5) Hypercoagulable state associated with COVID-19 Status: Acute Clinical Quality Measures DVT/VTE Risk/Contraindication: Risk Factor Score Per Nursin RFS Level Per Nursing on Admit: 4+=Very High STEPHANIE PEACE MD Jun 24, 2020 12:51
[2020-06-24 15:12] VITALS: BP 157/109
[2020-06-24 19:11] VITALS: BP 152/103
[2020-06-24] MEDS: ACETAMINOPHEN 650 MG SUPP (TYLENOL) PR PRN (20:26)
[2020-06-24 22:48] VITALS: BP 152/103
[2020-06-25] MEDS: ENOXAPARIN 300 MG/3 ML (LOVENOX) MULTI-DOSE VIAL SQ SCH ×3 (00:22→23:07)
[2020-06-25] MEDS: inSUlin ASPART (NovoLOG) 1 UNIT/0.01 ML (CHARGE PER UNIT) SC SCH ×5 (00:22→23:06)
[2020-06-25] MEDS: MIDAZOLAM DRIP PRE-MIX 100 ML IV SCH ×3 (00:59→18:01)
[2020-06-25] MEDS: DexMEDEtomidine PRE MIX 100 ML IV SCH ×4 (01:00→08:36)
[2020-06-25 01:40] VITALS: BP 154/97
[2020-06-25] MEDS: RT-ALBUTEROL INHALER HFA (VENTOLIN HFA) 18 GM IH SCH ×6 (01:40→22:54)
[2020-06-25] MEDS: aCETylcysteine 20% (MUCOMYST) 30ML SOLN VIAL INH SCH ×4 (01:40→19:16)
[2020-06-25 01:55] LABS: BASOPHILS # (AUTO) 0.1 10^3/uL (0.0-0.1); BASOPHILS % (AUTO) 1 % (0-10); EOSINOPHILS # (AUTO) 0.1 10^3/uL (0.0-0.3); EOSINOPHILS % (AUTO) 1 % (0-10); HEMATOCRIT 29 % (40-54); HEMOGLOBIN 9.3 g/dL (13.3-17.7); LYMPHOCYTES # (AUTO) 2.1 10^3/uL (1.0-4.0); LYMPHOCYTES % (AUTO) 31 % (12-44); MEAN CORPUSCULAR HEMOGLOBIN 29 pg (25-34); MEAN CORPUSCULAR HGB CONC 32 g/dL (32-36); MEAN CORPUSCULAR VOLUME 90 fL (80-99); MEAN PLATELET VOLUME 9.1 fL (9.0-12.2); MONOCYTES # (AUTO) 0.6 10^3/uL (0.0-1.0); MONOCYTES % (AUTO) 10 % (0-12); NEUTROPHILS # (AUTO) 3.8 10^3/uL (1.8-7.8); NEUTROPHILS % (AUTO) 57 % (42-75); PLATELET COUNT 310 10^3/uL (130-400); WHITE BLOOD COUNT 6.7 10^3/uL (4.3-11.0)
[2020-06-25 01:56] LABS: ABG BASE EXCESS 12.1 MMOL/L (-2.5-2.5); ABG OXYGEN SATURATION 94 % (94-100); ABG PCO2 52 MMHG (35-45); ABG PH 7.47 (7.37-7.43); ABG PO2 82 MMHG (79-93); ABG TCO2 37.9 MMOL/L (21.0-31.0); ALLENS TEST YES-POS; INSPIRED O2 60%; PATIENT TEMP 38.1; VENTILATOR YES
[2020-06-25 02:07] LABS: CHLORIDE 100 MMOL/L (98-107); POTASSIUM 3.4 MMOL/L (3.6-5.0); SODIUM 141 MMOL/L (135-145)
[2020-06-25 02:08] LABS: CALCIUM 7.9 MG/DL (8.5-10.1); GLUCOSE 162 MG/DL (70-105)
[2020-06-25 02:10] LABS: CARBON DIOXIDE 32 MMOL/L (21-32)
[2020-06-25 02:12] LABS: CREATININE SERUM 0.55 MG/DL (0.60-1.30); GFR ESTIMATED > 60; PHOSPHORUS 2.7 MG/DL (2.3-4.7)
[2020-06-25 02:13] LABS: BUN/CREATININE RATIO 16
[2020-06-25 02:15] LABS: MAGNESIUM 1.8 MG/DL (1.6-2.4)
[2020-06-25] MEDS: fentaNYL DRIP PRE-MIX 250 ML IV SCH ×5 (02:45→18:00)
[2020-06-25] MEDS: PIPERACILLIN/TAZOBACTAM (BULK) 4.5 GM in NS (IVPB) 100 ML IV SCH ×3 (02:45→17:57)
[2020-06-25] MEDS: POTASSIUM CL 10MEQ/50ML IVPB 50 ML IV SCH ×3 (05:27→06:18)
[2020-06-25] MEDS: MAGNESIUM 1 GM/100 ML IVPB 100 ML IV SCH (05:27)
[2020-06-25] MEDS: KCL 20 MEQ TAB (K-DUR) PO SCH (05:27)
[2020-06-25] MEDS: LACTATED RINGERS 1,000 ML IV SCH (06:18)
[2020-06-25] MEDS: PROPOFOL DRIP (ICU) 100 ML IV SCH ×4 (06:19→21:16)
[2020-06-25 06:53] VITALS: BP 137/88
--- NOTE | 2020-06-25 07:56 | Diagnostic Imaging Report ---
EXAMINATION: Chest radiograph, portable AP view. DATE: 06/25/2020 3:45 AM INDICATION: 34-year-old male, COVID positive. Shortness of breath. COMPARISON: June 24, 2020. FINDINGS: The endotracheal tube is right at the level of the thoracic inlet. Recommend advancement. The right internal jugular central venous line overlies the upper SVC. Right-sided PICC line tip appears to extend to the level of the lower SVC, although is difficult to visualize. Heart size and mediastinal contours are unchanged. Lung volumes are low. There is no identified pneumothorax. There is redemonstrated and essentially unchanged multifocal bilateral lung consolidation. There is a nasogastric tube in the stomach. IMPRESSION: 1. Unchanged low lung volumes and multifocal bilateral lung consolidation. 2. The endotracheal tube is near the level of the thoracic inlet. Consider advancement. 3. Additional support lines and tubes as above. Dictated by: Dictated on workstation # [id number]
[2020-06-25] MEDS ORDERED: DEXMEDETOMIDINE IV SCH (08:15)
[2020-06-25] MEDS ORDERED: DexMEDEtomidine 250 ML DRIP 250 ML IV SCH (08:15)
[2020-06-25] MEDS ORDERED: DexMEDEtomidine PRE MIX 100 ML IV ONE (08:15)
[2020-06-25] MEDS: DOCOSANOL 10 % CREAM (ABREVA) 2 GM TP SCH ×5 (08:32→21:15)
[2020-06-25] MEDS: FUROSEMIDE 40 MG/4 ML INJ (LASIX) IVP SCH ×2 (08:41→21:14)
[2020-06-25] MEDS: VALACYCLOVIR 500 MG TAB (VALTREX) PO SCH ×2 (08:41→21:15)
[2020-06-25] MEDS: METOCLOPRAMIDE INJ 10 MG/2 ML (REGLAN) IVP SCH ×2 (08:41→17:57)
[2020-06-25] MEDS: LACTULOSE SYRUP 10GM/15ML (ENULOSE) 30ML UDC PO SCH ×2 (08:41→21:14)
[2020-06-25] MEDS: meTOprolol TARTRATE 25 MG (LOPRESSOR) TABLET PO SCH ×2 (08:41→21:15)
[2020-06-25] MEDS: PANTOPRAZOLE 40 MG (PROTONIX) VIAL IV SCH (08:42)
[2020-06-25] MEDS: DOCUSATE SODIUM 100 MG (COLACE) CAP PO SCH ×2 (08:42→21:14)
--- NOTE | 2020-06-25 09:32 | NUR ---
DR PEACE AT BEDSIDE AT THIS TIME. THIS RN VERIFIED LASIX ORDER COMPARED TO DR BRIGHT'S NOTE ON FRIDAY. DR BRIGHT WROTE IN HIS NOTE FOR "LASIX BID". THE EMAR SHOWS LASIX 40MG DAILY. DR PEACE ORDERED 40MG LASIX BID. SEE NEW ORDERS ENTERED BY THIS RN.
[2020-06-25 10:15] VITALS: BP 124/73
[2020-06-25] MEDS: ACETAMINOPHEN 650 MG SUPP (TYLENOL) PR PRN (12:05)
--- NOTE | 2020-06-25 12:28 | Progress Note - Hospitalist ---
Subjective HPI/CC On Admission Date Seen by Provider: Jun 25, 2020 Time Seen by Provider: 09:30 Subjective/Events-last exam he remains intubated and sedated. Objective Exam Vital Signs Vital Signs Date Time Temp Pulse Resp B/P (MAP) Pulse Ox O2 Delivery O2 Flow Rate FiO2 06/25/20 12:06 167/97 06/25/20 12:05 37.8 06/25/20 12:00 73 19 95 Mechanical Ventilator 55.00 06/25/20 10:15 55 Capillary Refill : Less Than 3 Seconds General Appearance: No Apparent Distress, Obese, Other (intubated and sedated) Respiratory: No Respiratory Distress, Decreased Breath Sounds, Other (intubated and mechanically ventilated) Cardiovascular: Regular Rate, Rhythm, No Murmur Gastrointestinal: Normal Bowel Sounds, Soft Extremity: Normal Inspection, Pedal Edema Neurologic/Psychiatric: Other (sedated) Skin: Normal Color, Warm/Dry Results/Procedures Lab Laboratory Tests 06/25/20 01:45 Patient resulted labs reviewed. Imaging: Reviewed Imaging Report Assessment/Plan Assessment and Plan Assess & Plan/Chief Complaint ARDS due to COVID-19 PNA Hypercoagulable state due to COVID-19 Decadron s/p convalescent plasma Intubated 06/10 Intermittent proning TeleICU assisting with ventilator CT Chest negative for PE Therapeutic Lovenox Zosyn Increase Lasix T2DM Levemir Sliding scale insulin Morbid obesity Clinically significant, no acute management needs DVT Prophylaxis: already receiving therapeutic anticoagulation Critical Care Critically Ill Patient Diagnosis/Problems Diagnosis/Problems (1) Acute respiratory distress syndrome (ARDS) due to COVID-19 virus Status: Acute (2) PNA (pneumonia) Status: Acute (3) T2DM (type 2 diabetes mellitus) Status: Acute (4) Morbid obesity Status: Chronic (5) Hypercoagulable state associated with COVID-19 Status: Acute Clinical Quality Measures DVT/VTE Risk/Contraindication: Risk Factor Score Per Nursin RFS Level Per Nursing on Admit: 4+=Very High STEPHANIE PEACE MD Jun 25, 2020 12:28
[2020-06-25 14:24] VITALS: BP 167/88
[2020-06-25] MEDS: LABETALOL HCL 20 MG/4 ML VIAL IV PRN (14:56)
--- NOTE | 2020-06-25 15:11 | NUR ---
PATIENT HYPERTENSIVE, PRN MEDS GIVEN, SEE EMAR
[2020-06-25] MEDS: hydrALAZINE (APESOLINE) 20 MG/ML VIAL IV PRN (15:51)
--- NOTE | 2020-06-25 17:00 | NUR ---
Spoke with patient's mother today. Updated her on patient's condition.
--- NOTE | 2020-06-25 18:49 | NUR ---
Bed bath given. Patient remains prone. Patient continues to slide head off of the pressure relief cushion, this RN continues to re-position head to avoid pressure sores.
[2020-06-25 19:16] VITALS: BP 134/82
--- NOTE | 2020-06-25 19:47 | NUR ---
PT DESATURATING AT THIS TIME. RT JOURDAN AT BEDSIDE INCREASED PEEP TO 16 AND FIO2 100%. THIS RN NOTIFIED DR YULIA BAILON. NEW ORDERS RECEIVED TO PLACE PT IN SUPINE POSITION, ADVANCE ETT 2.5 CM AND CXR. THIS RN VERBALIZED UNDERSTANDING.
[2020-06-25] MEDS: LORazepam INJ 2 MG/ML (ATIVAN) VIAL IV PRN (19:59)
--- NOTE | 2020-06-25 20:32 | Diagnostic Imaging Report ---
INDICATION: Evaluation of endotracheal tube. EXAMINATION: AP view of the chest was obtained. COMPARISON: Study of 06/25/2020, earlier in the day. FINDINGS: Extensive airspace disease has shown mild worsening. Endotracheal tube is in place with tip at the level of the thoracic inlet. Right jugular and right upper extremity central venous catheters are in stable position. There is no pneumothorax. IMPRESSION: Worsening bilateral pulmonary edema and/or hemorrhage. Endotracheal tube is in place with tip just above the thoracic inlet. Dictated by: Dictated on workstation # [id number]
[2020-06-25 22:54] VITALS: BP 134/82
[2020-06-26] MEDS: PROPOFOL DRIP (ICU) 100 ML IV SCH ×6 (00:01→22:52)
[2020-06-26] MEDS: fentaNYL DRIP PRE-MIX 250 ML IV SCH ×4 (00:01→06:20)
[2020-06-26] MEDS: MIDAZOLAM DRIP PRE-MIX 100 ML IV SCH ×2 (02:30→22:51)
[2020-06-26] MEDS: PIPERACILLIN/TAZOBACTAM (BULK) 4.5 GM in NS (IVPB) 100 ML IV SCH ×3 (02:48→18:21)
[2020-06-26 02:53] LABS: ABG BASE EXCESS 9.6 MMOL/L (-2.5-2.5); ABG OXYGEN SATURATION 92 % (94-100); ABG PCO2 58 MMHG (35-45); ABG PO2 70 MMHG (79-93); ABG TCO2 36.4 MMOL/L (21.0-31.0)
[2020-06-26 02:54] LABS: ALLENS TEST YES-POS; BASOPHILS # (AUTO) 0.1 10^3/uL (0.0-0.1); BASOPHILS % (AUTO) 1 % (0-10); EOSINOPHILS # (AUTO) 0.2 10^3/uL (0.0-0.3); EOSINOPHILS % (AUTO) 3 % (0-10); HEMATOCRIT 29 % (40-54); HEMOGLOBIN 9.4 g/dL (13.3-17.7); INSPIRED O2 60%; LYMPHOCYTES # (AUTO) 1.3 10^3/uL (1.0-4.0); LYMPHOCYTES % (AUTO) 19 % (12-44); MEAN CORPUSCULAR HEMOGLOBIN 29 pg (25-34); MEAN CORPUSCULAR HGB CONC 32 g/dL (32-36); MEAN CORPUSCULAR VOLUME 89 fL (80-99); MEAN PLATELET VOLUME 9.2 fL (9.0-12.2); MONOCYTES # (AUTO) 0.6 10^3/uL (0.0-1.0); MONOCYTES % (AUTO) 8 % (0-12); NEUTROPHILS # (AUTO) 4.9 10^3/uL (1.8-7.8); NEUTROPHILS % (AUTO) 69 % (42-75); PATIENT TEMP 37.2; PLATELET COUNT 256 10^3/uL (130-400); VENTILATOR YES; WHITE BLOOD COUNT 7.1 10^3/uL (4.3-11.0)
[2020-06-26 03:05] LABS: CHLORIDE 99 MMOL/L (98-107); SODIUM 142 MMOL/L (135-145)
[2020-06-26 03:06] LABS: CALCIUM 7.7 MG/DL (8.5-10.1)
[2020-06-26 03:07] LABS: GLUCOSE 151 MG/DL (70-105)
[2020-06-26 03:08] LABS: CARBON DIOXIDE 31 MMOL/L (21-32)
[2020-06-26 03:10] LABS: PHOSPHORUS 3.7 MG/DL (2.3-4.7)
[2020-06-26 03:11] LABS: CREATININE SERUM 0.51 MG/DL (0.60-1.30); GFR ESTIMATED > 60
[2020-06-26 03:12] LABS: BUN/CREATININE RATIO 14
[2020-06-26 03:13] LABS: MAGNESIUM 1.8 MG/DL (1.6-2.4)
[2020-06-26] MEDS: KCL 20 MEQ TAB (K-DUR) PO SCH (03:19)
[2020-06-26 03:42] VITALS: BP 135/82
[2020-06-26] MEDS: RT-ALBUTEROL INHALER HFA (VENTOLIN HFA) 18 GM IH SCH ×6 (03:42→21:31)
--- NOTE | 2020-06-26 03:57 | Pulmonary Progress Note ---
Subjective Time Seen by a Provider: 03:56 Subjective/Events-last exam Intubated on vent. Sepsis Event Evaluation Height, Weight, BMI Height: 6'0.00" Weight: 360lbs. 0.0oz. 163.274532ar; 46.28 BMI Method: Exam Exam Vital Signs Date Time Temp Pulse Resp B/P (MAP) Pulse Ox O2 Delivery O2 Flow Rate FiO2 06/26/20 03:42 88 20 95 45 06/26/20 02:40 Mechanical Ventilator 50.00 06/26/20 02:30 78 06/26/20 02:30 78 06/26/20 00:09 Mechanical Ventilator 60.00 06/26/20 00:01 80 06/26/20 00:00 81 06/25/20 23:06 37.2 Mechanical Ventilator 75.00 06/25/20 23:00 37.2 87 39 129/86 (100) 100 Mechanical Ventilator 80.00 06/25/20 22:54 77 22 98 80 06/25/20 22:00 37.3 79 18 121/80 (94) 99 Mechanical Ventilator 80.00 06/25/20 21:25 Mechanical Ventilator 80.00 06/25/20 21:16 80 06/25/20 21:00 37.5 81 19 113/72 (86) 99 Mechanical Ventilator 100.00 06/25/20 20:30 90 Mechanical Ventilator 100 06/25/20 20:13 37.5 95 7 135/82 (99) 98 Mechanical Ventilator 100.00 06/25/20 19:16 111 24 92 65 06/25/20 19:00 114 06/25/20 19:00 37.3 114 21 133/80 (99) 81 Mechanical Ventilator 100.00 06/25/20 19:00 37.6 Mechanical Ventilator 100.00 06/25/20 18:01 156/90 06/25/20 18:00 37.7 88 16 156/90 (112) 94 Mechanical Ventilator 65.00 06/25/20 17:57 167/100 06/25/20 17:18 37.6 86 157/94 (115) 94 Mechanical Ventilator 65.00 06/25/20 16:00 37.6 73 9 152/89 (110) 94 Mechanical Ventilator 55.00 06/25/20 15:00 37.7 73 13 184/103 (130) 93 Mechanical Ventilator 55.00 06/25/20 14:24 73 20 92 65 06/25/20 14:00 37.7 75 157/100 (119) 92 Mechanical Ventilator 55.00 06/25/20 13:00 37.7 73 19 93 Mechanical Ventilator 55.00 06/25/20 12:57 73 06/25/20 12:35 37.6 06/25/20 12:06 167/97 06/25/20 12:05 37.8 06/25/20 12:00 37.7 73 19 167/97 (120) 95 Mechanical Ventilator 55.00 06/25/20 11:00 38.1 74 19 90 Mechanical Ventilator 60.00 06/25/20 10:15 78 20 92 55 06/25/20 10:00 37.9 73 20 124/73 (90) 98 Mechanical Ventilator 60.00 06/25/20 09:00 37.8 73 19 140/89 (106) 97 Mechanical Ventilator 60.00 06/25/20 08:36 140/88 06/25/20 08:00 97 Mechanical Ventilator 60 06/25/20 08:00 37.7 72 19 142/91 (108) 97 Mechanical Ventilator 60.00 06/25/20 07:00 73 06/25/20 07:00 37.7 73 19 137/89 (105) 96 Mechanical Ventilator 60.00 06/25/20 06:53 73 20 98 60 06/25/20 06:19 71 06/25/20 06:19 71 06/25/20 06:00 37.7 71 19 137/88 (104) 99 Mechanical Ventilator 60.00 06/25/20 05:00 37.6 70 19 142/93 (109) 98 Mechanical Ventilator 60.00 06/25/20 04:26 Mechanical Ventilator 60.00 06/25/20 04:25 70 06/25/20 04:25 70 06/25/20 04:00 37.5 69 19 141/81 (101) 97 Mechanical Ventilator 60.00 I & O 06/26/20 07:00 Intake Total 3320 ml Output Total 5350 ml Balance -2030 ml Height & Weight Height: 6'0.00" Weight: 360lbs. 0.0oz. 163.653505qo; 46.28 BMI Method: General Appearance: No Apparent Distress, Obese, Other (intubated and sedated) HEENT: Other (Left large herpetic lesion) Neck: Limited Range of Motion Respiratory: No Respiratory Distress, Decreased Breath Sounds, Other (intubated and mechanically ventilated) Cardiovascular: Regular Rate, Rhythm, No Murmur Capillary Refill: Less Than 3 Seconds Gastrointestinal: soft, no organomegaly Extremity: Normal Inspection, Pedal Edema Neurologic/Psychiatric: Other (sedated) Skin: Normal Color, Warm/Dry Results Lab Laboratory Tests 06/25/20 01:45 06/26/20 02:45 Assessment/Plan Assessment/Plan COVID with pneumonia and acute respiratory failure -Pt was intubated 06/10 -EICU managed pt through the night -Vent 400/20/10--- 45% -Precedex 1.5, propofol 25, Fentanyl 400, and Versed 10mg, -Hold Propofol - TF -Lasix - Change to daily -Decadron -CVP - Proning -callejas cultures pending -Pt does not qualify for Remdesivir Pneumonia TM 38.7 -Continue Zosyn and Eraxis -s/p Vanco Hypertriglyceridemia -improving HTN and sinus tachycardia -Lopressor 25mg BID hypokalemia -Replace DM s/p Acute DKA Levemier -SSI -10 units of Levemir -Hold home PO diabetic meds Leukocytosis - currently on Zosyn -Continue to monitor -Recheck PCT Morbid obesity DVT/GI ppx -Theraputic dose Marynoortega bernstein JASON M DO Jun 26, 2020 03:57
[2020-06-26] MEDS ORDERED: MAGNESIUM 1 GM/100 ML IVPB 100 ML IV ONE (04:00)
[2020-06-26] MEDS: LORazepam INJ 2 MG/ML (ATIVAN) VIAL IV PRN ×2 (04:14→11:05)
[2020-06-26] MEDS: POTASSIUM CL 10MEQ/50ML IVPB 50 ML IV SCH ×10 (04:14→11:06)
[2020-06-26 05:39] LABS: BILIRUBIN,URINE 1+ (NEGATIVE); CLARITY,URINE SL CLOUDY; COLOR,URINE AMBER; GLUCOSE, URINE (UA) NEGATIVE (NEGATIVE); KETONES,URINE 3+ (NEGATIVE); LEUKOCYTE ESTERASE ,URINE TRACE (NEGATIVE); NITRITE,URINE NEGATIVE (NEGATIVE); PH,URINE 5.5 (5-9); PROTEIN,URINE 1+ (NEGATIVE)
[2020-06-26 05:59] LABS: BACTERIA,URINE TRACE /HPF; RBC,URINE >100 /HPF; WBC,URINE 0-2 /HPF; YEAST,URINE FEW /HPF
[2020-06-26] MEDS: inSUlin ASPART (NovoLOG) 1 UNIT/0.01 ML (CHARGE PER UNIT) SC SCH ×3 (06:20→17:51)
[2020-06-26] MEDS: MAGNESIUM 1 GM/100 ML IVPB 100 ML IV SCH (06:20)
--- NOTE | 2020-06-26 06:28 | NUR ---
PT SITTING UP IN BED AND SHAKING HEAD SIDE TO SIDE. THIS RN UNABLE TO REDIRECT. PROPOFOL GTT RESTARTED AT THIS TIME. WILL CONTINUE TO MONITOR.
[2020-06-26] MEDS: LACTATED RINGERS 1,000 ML IV SCH ×2 (06:30→22:52)
[2020-06-26] MEDS: DOCOSANOL 10 % CREAM (ABREVA) 2 GM TP SCH ×5 (07:00→20:59)
--- NOTE | 2020-06-26 07:07 | Diagnostic Imaging Report ---
Indication: Hypoxia and intubated. Comparison: 06/25/2020 Findings: Single view of the chest demonstrates persistent but slightly decreased bilateral pulmonary infiltrates. Lung volumes are low. There is no pneumothorax or large effusion. The heart is prominent. Support devices appear stable. Impression: Slightly improved aeration. Dictated by: Dictated on workstation # [id number]
[2020-06-26 08:00] VITALS: BP 146/97
[2020-06-26] MEDS ORDERED: POTASSIUM CL 10MEQ/50ML IVPB 50 ML IV ONE (08:00)
--- NOTE | 2020-06-26 08:14 | Physical Therapy Progress Note ---
Therapy Progress Note Patient remains sedated and intubated. PT will continue to monitor patient status. ROSENDA ZHONG PT Jun 26, 2020 08:13
[2020-06-26] MEDS: FUROSEMIDE 40 MG/4 ML INJ (LASIX) IVP SCH ×2 (09:12→21:00)
[2020-06-26] MEDS: PANTOPRAZOLE 40 MG (PROTONIX) VIAL IV SCH (09:12)
[2020-06-26] MEDS: VALACYCLOVIR 500 MG TAB (VALTREX) PO SCH ×2 (09:12→20:59)
[2020-06-26] MEDS: METOCLOPRAMIDE INJ 10 MG/2 ML (REGLAN) IVP SCH ×2 (09:12→18:21)
[2020-06-26] MEDS: LACTULOSE SYRUP 10GM/15ML (ENULOSE) 30ML UDC PO SCH ×2 (09:12→21:00)
[2020-06-26] MEDS: DOCUSATE SODIUM 100 MG (COLACE) CAP PO SCH ×2 (09:12→21:00)
[2020-06-26] MEDS: meTOprolol TARTRATE 25 MG (LOPRESSOR) TABLET PO SCH ×2 (09:12→21:00)
[2020-06-26] MEDS: ENOXAPARIN 300 MG/3 ML (LOVENOX) MULTI-DOSE VIAL SQ SCH ×2 (11:07→21:00)
[2020-06-26 11:08] VITALS: BP 125/75
[2020-06-26] MEDS: aCETylcysteine 20% (MUCOMYST) 30ML SOLN VIAL INH SCH ×4 (11:08→21:31)
--- NOTE | 2020-06-26 11:19 | Physical Therapy Progress Note ---
Therapy Progress Note PROM not performed this date as pt already in prone position. JAS TEMPLE PT Jun 26, 2020 11:18
--- NOTE | 2020-06-26 13:00 | NUR ---
UPON ENTERING PATIENT'S ROOM, FOUND PATIENT HAD SLID DOWN THE BED AND WAS RUBBING HIS FACE BACK AND FORTH AGAINST THE MATTRESS. ET PALOMO WAS OFF OF HIS HEAD AND ET AND OG TUBE WAS DISLODGED. THIS RN INFORMED HOUSE SUP WHO CALLED ANESTHESIA WHILE THIS RN HELD TUBE IN PLACE UNTIL THEY ARRIVED. HORACE CHARLTON ARRIVED TO ROOM WITHIN A FEW MINUTES AND USED THE GLIDESCOPE TO RE-INTUBATE PATIENT. STAT CXR WAS ORDERED AND COMPLETED. ET AND OG IN CORRECT POSITION. MULTIPLE NURSES IN ROOM ASSISTING THIS RN WITH PATIENT POSITION. PATIENT HAD LARGE LIQUID BM AND REQUIRED 2 LINEN CHANGES AND A COMPLETE BATH. Addendum: 06/26/20 at 1855 by ANIBAL TEMPLE RN DR BRIGHT WAS NOTIFIED ABOUT THIS EVENT
--- NOTE | 2020-06-26 13:50 | Diagnostic Imaging Report ---
INDICATION: Respiratory failure. EXAMINATION: Portable chest at 1:46 PM. FINDINGS: There is an ET tube projecting over the trachea. The NG tube appears to enter the stomach. The right IJ central line tip projects over the right innominate vein. The right upper extremity PICC line tip projects over the SVC. There are patchy alveolar infiltrates in both lungs. There are no effusions or pneumothoraces. IMPRESSION: Patchy areas of consolidation in both lungs, suspicious for Covid pneumonia. The report was faxed to Infection Control by mariaa@1:49 PM. Dictated by: Dictated on workstation # [id number]
--- NOTE | 2020-06-26 13:51 | Anesthesia-Procedure Note ---
Procedures/Interventions Procedure Start/Stop/Diagnosis Date of Procedure: Jun 26, 2020 Start Time: 13:20 Referring Physician: jad Preprocedural Diagnosis: COVID +/ Respiratory Failure Stop Time: 13:30 Additional Procedures Procedures Called to ICU by nursing staff re:possible displacement of ETT. Pt currently proned, on heavy sedation but has independently moved down enough in bed that tube is no longer secured and patient desaturating. RT at bedside holding tube in place. Propofol 200mg (pulled from existing sedation) and Rocuronium 50mg IV given. Repositioned supine, and oropharnyx suctioned. Glidescope 3 used to visualize tube. Slight herniation of proximal end of cuff through cords, cuff deflated and advanced slightly and reinflated. Secured at approx 24cm @ teeth. BBS auscultated, although very diminished. SP02 92% upon my exit. Xray en route for portable image. CHARLES MARTINEZ CRNA Jun 26, 2020 13:51
[2020-06-26 15:43] VITALS: BP 128/76
[2020-06-26] MEDS: NS IV SCH ×2 (16:12→21:15)
[2020-06-26] MEDS: FENTANYL IV SCH ×2 (16:12→21:15)
[2020-06-26 18:41] VITALS: BP 129/88
[2020-06-26 21:31] VITALS: BP 130/78
[2020-06-27 01:38] VITALS: BP 127/77
[2020-06-27] MEDS: RT-ALBUTEROL INHALER HFA (VENTOLIN HFA) 18 GM IH SCH ×6 (01:38→21:21)
[2020-06-27] MEDS: inSUlin ASPART (NovoLOG) 1 UNIT/0.01 ML (CHARGE PER UNIT) SC SCH ×5 (02:44→23:38)
[2020-06-27] MEDS: PIPERACILLIN/TAZOBACTAM (BULK) 4.5 GM in NS (IVPB) 100 ML IV SCH ×3 (02:44→20:26)
[2020-06-27] MEDS: FENTANYL IV SCH ×4 (02:59→22:48)
[2020-06-27] MEDS: NS IV SCH ×4 (02:59→22:48)
[2020-06-27 03:03] LABS: ABG BASE EXCESS 11.8 MMOL/L (-2.5-2.5); ABG OXYGEN SATURATION 84 % (94-100); ABG PCO2 45 MMHG (35-45); ABG PH 7.51 (7.37-7.43); ABG PO2 110 MMHG (79-93); ABG TCO2 37.3 MMOL/L (21.0-31.0)
[2020-06-27 03:04] LABS: ALLENS TEST YES-POS; INSPIRED O2 70%; PATIENT TEMP 36.2; VENTILATOR YES
[2020-06-27 03:35] LABS: BASOPHILS # (AUTO) 0.1 10^3/uL (0.0-0.1); BASOPHILS % (AUTO) 1 % (0-10); EOSINOPHILS # (AUTO) 0.3 10^3/uL (0.0-0.3); EOSINOPHILS % (AUTO) 4 % (0-10); HEMATOCRIT 29 % (40-54); HEMOGLOBIN 9.3 g/dL (13.3-17.7); LYMPHOCYTES # (AUTO) 1.1 10^3/uL (1.0-4.0); LYMPHOCYTES % (AUTO) 19 % (12-44); MEAN CORPUSCULAR HEMOGLOBIN 28 pg (25-34); MEAN CORPUSCULAR HGB CONC 32 g/dL (32-36); MEAN CORPUSCULAR VOLUME 88 fL (80-99); MEAN PLATELET VOLUME 9.8 fL (9.0-12.2); MONOCYTES # (AUTO) 0.4 10^3/uL (0.0-1.0); MONOCYTES % (AUTO) 7 % (0-12); NEUTROPHILS % (AUTO) 68 % (42-75); PLATELET COUNT 220 10^3/uL (130-400); WHITE BLOOD COUNT 5.9 10^3/uL (4.3-11.0)
[2020-06-27 03:39] LABS: CHLORIDE 97 MMOL/L (98-107); POTASSIUM 2.8 MMOL/L (3.6-5.0); SODIUM 139 MMOL/L (135-145)
[2020-06-27 03:40] LABS: CALCIUM 7.7 MG/DL (8.5-10.1)
[2020-06-27 03:41] LABS: GLUCOSE 150 MG/DL (70-105)
[2020-06-27 03:42] LABS: CARBON DIOXIDE 30 MMOL/L (21-32)
[2020-06-27 03:45] LABS: CREATININE SERUM 0.47 MG/DL (0.60-1.30); GFR ESTIMATED > 60
[2020-06-27 03:46] LABS: BUN/CREATININE RATIO 11
[2020-06-27 03:47] LABS: MAGNESIUM 1.7 MG/DL (1.6-2.4)
--- NOTE | 2020-06-27 04:20 | Pulmonary Progress Note ---
Subjective Time Seen by a Provider: 04:15 Subjective/Events-last exam Sedated on vent. Sepsis Event Evaluation Height, Weight, BMI Height: 6'0.00" Weight: 360lbs. 0.0oz. 163.936579ik; 46.28 BMI Method: Exam Exam Vital Signs Date Time Temp Pulse Resp B/P (MAP) Pulse Ox O2 Delivery O2 Flow Rate FiO2 06/27/20 03:00 36.2 79 20 127/80 (96) 95 Mechanical Ventilator 70.00 06/27/20 02:00 35.8 81 20 125/83 (97) 91 Mechanical Ventilator 70.00 06/27/20 02:00 Mechanical Ventilator 70.00 06/27/20 01:38 76 20 97 70 06/27/20 01:00 36.1 75 21 127/80 (96) 96 Mechanical Ventilator 70.00 06/27/20 00:00 36.0 75 21 131/80 (97) 97 Mechanical Ventilator 70.00 06/26/20 23:01 36.0 Mechanical Ventilator 70.00 06/26/20 23:00 36.0 72 20 123/78 (93) 96 Mechanical Ventilator 45.00 06/26/20 22:52 73 06/26/20 22:51 73 06/26/20 22:51 73 06/26/20 22:51 73 06/26/20 22:00 36.0 74 18 122/78 (93) 95 Mechanical Ventilator 45.00 06/26/20 21:31 75 20 95 70 06/26/20 21:00 35.8 75 39 142/93 (109) 96 Mechanical Ventilator 45.00 06/26/20 20:15 93 Mechanical Ventilator 70 06/26/20 20:00 35.8 85 25 123/79 (94) 94 Mechanical Ventilator 45.00 06/26/20 19:00 35.7 86 21 124/82 (96) 95 Mechanical Ventilator 45.00 06/26/20 19:00 Mechanical Ventilator 70.00 06/26/20 19:00 86 06/26/20 18:41 84 24 96 70 06/26/20 18:23 119/71 06/26/20 18:22 119/71 06/26/20 18:00 35.8 73 18 120/73 (89) 94 Mechanical Ventilator 45.00 06/26/20 17:00 35.9 73 19 131/80 (97) 94 Mechanical Ventilator 45.00 06/26/20 16:00 35.9 75 53 126/74 (91) 93 Mechanical Ventilator 45.00 06/26/20 15:43 74 20 95 70 06/26/20 15:00 35.7 74 27 128/79 (95) 98 Mechanical Ventilator 45.00 06/26/20 14:00 34.9 78 20 112/69 (83) 94 Mechanical Ventilator 45.00 06/26/20 13:00 108 06/26/20 13:00 37.2 106 11 154/121 (132) 93 Mechanical Ventilator 45.00 06/26/20 12:00 37.0 80 18 137/84 (101) 95 Mechanical Ventilator 45.00 06/26/20 11:08 83 23 91 45 06/26/20 11:00 37.0 82 18 125/75 (92) 93 Mechanical Ventilator 45.00 06/26/20 10:00 37.2 87 10 116/71 (86) 93 Mechanical Ventilator 45.00 06/26/20 09:00 37.2 78 19 121/72 (88) 93 Mechanical Ventilator 45.00 06/26/20 08:00 94 Mechanical Ventilator 45 06/26/20 08:00 80 21 94 45 06/26/20 08:00 37.2 82 20 146/97 (113) 99 Mechanical Ventilator 45.00 06/26/20 07:00 37.4 80 19 131/80 (97) 95 Mechanical Ventilator 45.00 06/26/20 06:42 81 06/26/20 06:00 37.5 81 25 134/83 (100) 95 Mechanical Ventilator 45.00 06/26/20 05:00 37.4 85 28 137/87 (104) 93 Mechanical Ventilator 45.00 06/26/20 04:25 37.3 Mechanical Ventilator 45.00 I & O 06/27/20 07:00 Intake Total 4720 ml Output Total 5675 ml Balance -955 ml Height & Weight Height: 6'0.00" Weight: 360lbs. 0.0oz. 163.667081yj; 46.28 BMI Method: General Appearance: No Apparent Distress, Obese, Other (intubated and sedated) HEENT: Other (Left large herpetic lesion) Neck: Limited Range of Motion Respiratory: No Respiratory Distress, Decreased Breath Sounds, Other (intubated and mechanically ventilated) Cardiovascular: Regular Rate, Rhythm, No Murmur Capillary Refill: Less Than 3 Seconds Gastrointestinal: soft, no organomegaly Extremity: Normal Inspection, Pedal Edema Neurologic/Psychiatric: Other (sedated) Skin: Normal Color, Warm/Dry Results Lab Laboratory Tests 06/26/20 02:45 06/27/20 02:55 Assessment/Plan Assessment/Plan COVID with pneumonia and acute respiratory failure -Pt was intubated 06/10 -Pt Self extubated this morning -EICU managed pt through the night -Vent 400/20/10--- 70% -Increase PEEP to 14 -Precedex 1.5, propofol 25, Fentanyl 400, and Versed 10mg, - TF -Lasix - Change to daily -S/p Decadron , CVP - Proning -callejas cultures pending -Pt does not qualify for Remdesivir Pneumonia TM 38.7 -Continue Zosyn and Eraxis -s/p Vanco Hypertriglyceridemia -improving HTN and sinus tachycardia -Lopressor 25mg BID hypokalemia -Replace DM s/p Acute DKA Levemier -SSI -10 units of Levemir -Hold home PO diabetic meds Leukocytosis - currently on Zosyn -Continue to monitor -Recheck PCT Morbid obesity DVT/GI ppx -Theraputic dose Lovenox , pepcid NAT BRIGHT DO Jun 27, 2020 04:20
[2020-06-27] MEDS: POTASSIUM CL 10MEQ/50ML IVPB 50 ML IV SCH ×14 (05:18→15:10)
[2020-06-27] MEDS: MAGNESIUM 1 GM/100 ML IVPB 100 ML IV SCH ×3 (05:18→06:27)
[2020-06-27] MEDS: KCL 20 MEQ TAB (K-DUR) PO SCH (05:44)
[2020-06-27] MEDS: PROPOFOL DRIP (ICU) 100 ML IV SCH ×5 (06:28→20:35)
[2020-06-27 06:58] VITALS: BP 124/81
[2020-06-27] MEDS: aCETylcysteine 20% (MUCOMYST) 30ML SOLN VIAL INH SCH ×3 (06:58→18:27)
--- NOTE | 2020-06-27 07:51 | Diagnostic Imaging Report ---
Clinical indication: Patient Covid positive. Patient on ventilator. Exam: Portable chest x-ray semiupright view. Comparisons: Chest x-ray dated 06/26/2020. Findings: There is interval decreased lung aeration and progression of diffuse bilateral lung opacities/consolidations (right side more than the left). There is no pleural effusion or pneumothorax. Cardiomegaly is again seen. Pulmonary vasculature is obscured. ET tube is again seen with tip at roughly the upper T2 vertebral body level. The feeding tube is not completely visualized overlying the chest region, but its distal portion appears to be overlying the expected region of the gastric body. Right PICC line seen in stable position. Right IJ central line seen in stable position. IMPRESSION: 1: There is interval decreased lung aeration compared to prior study with progression of bilateral lung infiltrates. 2: Lines and tubes are seen in similar position, as described above. Dictated by: Dictated on workstation # [id number]
--- NOTE | 2020-06-27 07:53 | Physical Therapy Progress Note ---
Therapy Progress Note Patient remains sedated and intubated. PT will continue to monitor. ROSENDA ZHONG PT Jun 27, 2020 07:53
[2020-06-27] MEDS: LACTULOSE SYRUP 10GM/15ML (ENULOSE) 30ML UDC PO SCH ×2 (08:01→20:27)
[2020-06-27] MEDS: SPIRONOLACTONE 25 MG (ALDACTONE) TAB PO SCH (08:01)
[2020-06-27] MEDS: PANTOPRAZOLE 40 MG (PROTONIX) VIAL IV SCH (08:01)
[2020-06-27] MEDS: VALACYCLOVIR 500 MG TAB (VALTREX) PO SCH ×2 (08:01→20:27)
[2020-06-27] MEDS: METOCLOPRAMIDE INJ 10 MG/2 ML (REGLAN) IVP SCH ×2 (08:01→17:42)
[2020-06-27] MEDS: FUROSEMIDE 40 MG/4 ML INJ (LASIX) IVP SCH (08:01)
[2020-06-27] MEDS: DOCUSATE SODIUM 100 MG (COLACE) CAP PO SCH ×2 (08:01→20:27)
[2020-06-27] MEDS: meTOprolol TARTRATE 25 MG (LOPRESSOR) TABLET PO SCH ×2 (08:01→20:27)
[2020-06-27] MEDS: DOCOSANOL 10 % CREAM (ABREVA) 2 GM TP SCH ×5 (08:02→20:27)
[2020-06-27] MEDS ORDERED: ALTEPLASE 2 MG (CATHFLO) IV ONE ×2 (08:15→08:30)
[2020-06-27] MEDS: ARTIFICIAL TEARS OINT (LACRI-LUBE) 3.5 GM TUBE OU SCH ×3 (08:18→20:57)
[2020-06-27] MEDS ORDERED: WATER (STERILE) FOR INJECTION 10 ML ONE (08:28)
[2020-06-27] MEDS ORDERED: POTASSIUM CL 10MEQ/50ML IVPB 50 ML IV ONE (09:00)
--- NOTE | 2020-06-27 09:30 | NUR ---
AFTER APPROX 50 MIN OF CATHFLO DWELL TIME IN RED ET PURPLE LUMENS OF PICC, ABLE TO DRAW BACK BLOOD FROM BOTH LUMENS. BOTH LUMENS PULSE FLUSHED WITH 20ML OF NS. NEW CLAVES CAPPED WITH ANTISEPTIC CAPS. PT TOLERATED WELL.
--- NOTE | 2020-06-27 09:59 | Physical Therapy Progress Note ---
Therapy Progress Note Non skilled PROM B U/LE in available planes. Heel protectors and wrist restraints in place post visit JAS TEMPLE PT Jun 27, 2020 09:59
--- NOTE | 2020-06-27 10:19 | NUR ---
SOLIT[facility] DC, UPDATED ON PT'S CONDITION.
[2020-06-27 10:40] VITALS: BP 127/89
[2020-06-27] MEDS: ENOXAPARIN 300 MG/3 ML (LOVENOX) MULTI-DOSE VIAL SQ SCH ×2 (11:23→22:16)
[2020-06-27 12:58] LABS: BASOPHILS % (AUTO) 1 % (0-10); EOSINOPHILS # (AUTO) 0.3 10^3/uL (0.0-0.3); EOSINOPHILS % (AUTO) 5 % (0-10); HEMATOCRIT 30 % (40-54); HEMOGLOBIN 9.6 g/dL (13.3-17.7); LYMPHOCYTES # (AUTO) 1.1 10^3/uL (1.0-4.0); LYMPHOCYTES % (AUTO) 18 % (12-44); MEAN CORPUSCULAR HEMOGLOBIN 28 pg (25-34); MEAN CORPUSCULAR HGB CONC 32 g/dL (32-36); MEAN CORPUSCULAR VOLUME 88 fL (80-99); MEAN PLATELET VOLUME 9.7 fL (9.0-12.2); MONOCYTES # (AUTO) 0.5 10^3/uL (0.0-1.0); MONOCYTES % (AUTO) 8 % (0-12); NEUTROPHILS % (AUTO) 68 % (42-75); PLATELET COUNT 227 10^3/uL (130-400); WHITE BLOOD COUNT 5.8 10^3/uL (4.3-11.0)
[2020-06-27 13:21] LABS: ALANINE AMINOTRANSFERASE 22 U/L (0-55); ALBUMIN 2.2 GM/DL (3.2-4.5); ALKALINE PHOSPHATASE 78 U/L (40-136); BILIRUBIN,TOTAL 0.5 MG/DL (0.1-1.0); BUN/CREATININE RATIO 7; CALCIUM 7.8 MG/DL (8.5-10.1); CARBON DIOXIDE 33 MMOL/L (21-32); CHLORIDE 98 MMOL/L (98-107); CREATININE SERUM 0.45 MG/DL (0.60-1.30); GFR ESTIMATED > 60; GLUCOSE 144 MG/DL (70-105); POTASSIUM 3.2 MMOL/L (3.6-5.0); SODIUM 141 MMOL/L (135-145); TOTAL PROTEIN 4.9 GM/DL (6.4-8.2)
[2020-06-27 14:31] VITALS: BP 123/80
[2020-06-27] MEDS: MIDAZOLAM DRIP PRE-MIX 100 ML IV SCH (17:42)
--- NOTE | 2020-06-27 17:42 | NUR ---
Note pt currently receiving TF of Pulmocare via 60ml bolus feeds q4h with 30ml free water flushes. Would recommend continuing to increase TF by 60ml q8h as tolerated toward goal of 480ml (2 cans of TF) bolus feeds q4h, while supine. Will continue to follow and reassess as pt needs, intake, and status change. Carl Trinh, MS RD [phone]
[2020-06-27 18:30] VITALS: BP 120/76
[2020-06-27 21:21] VITALS: BP 128/83
[2020-06-28] VITALS (7 sets, daily range): BP systolic 109–132; BP diastolic 70–88
[2020-06-28] MEDS: PROPOFOL DRIP (ICU) 100 ML IV SCH ×6 (00:44→23:36)
[2020-06-28] MEDS: RT-ALBUTEROL INHALER HFA (VENTOLIN HFA) 18 GM IH SCH ×6 (01:46→22:53)
[2020-06-28] MEDS: aCETylcysteine 20% (MUCOMYST) 30ML SOLN VIAL INH SCH (01:47)
[2020-06-28 03:36] LABS: ABG BASE EXCESS 6.1 MMOL/L (-2.5-2.5); ABG OXYGEN SATURATION 97 % (94-100); ABG PCO2 48 MMHG (35-45); ABG PH 7.42 (7.37-7.43); ABG PO2 95 MMHG (79-93); ABG TCO2 32.2 MMOL/L (21.0-31.0)
[2020-06-28 03:37] LABS: BASOPHILS # (AUTO) 0.1 10^3/uL (0.0-0.1); BASOPHILS % (AUTO) 1 % (0-10); EOSINOPHILS # (AUTO) 0.3 10^3/uL (0.0-0.3); EOSINOPHILS % (AUTO) 4 % (0-10); HEMATOCRIT 29 % (40-54); HEMOGLOBIN 9.4 g/dL (13.3-17.7); LYMPHOCYTES # (AUTO) 1.3 10^3/uL (1.0-4.0); LYMPHOCYTES % (AUTO) 18 % (12-44); MEAN CORPUSCULAR HEMOGLOBIN 29 pg (25-34); MEAN CORPUSCULAR HGB CONC 32 g/dL (32-36); MEAN CORPUSCULAR VOLUME 88 fL (80-99); MEAN PLATELET VOLUME 9.8 fL (9.0-12.2); MONOCYTES # (AUTO) 0.5 10^3/uL (0.0-1.0); MONOCYTES % (AUTO) 8 % (0-12); NEUTROPHILS % (AUTO) 69 % (42-75); PLATELET COUNT 209 10^3/uL (130-400); WHITE BLOOD COUNT 7.1 10^3/uL (4.3-11.0)
[2020-06-28 03:40] LABS: ALLENS TEST YES-POS; INSPIRED O2 50%; PATIENT TEMP 36.4; VENTILATOR YES
[2020-06-28] MEDS: PIPERACILLIN/TAZOBACTAM (BULK) 4.5 GM in NS (IVPB) 100 ML IV SCH (03:41)
[2020-06-28 03:51] LABS: CHLORIDE 100 MMOL/L (98-107); POTASSIUM 3.2 MMOL/L (3.6-5.0); SODIUM 141 MMOL/L (135-145)
[2020-06-28 03:53] LABS: CALCIUM 7.8 MG/DL (8.5-10.1); GLUCOSE 153 MG/DL (70-105)
[2020-06-28 03:55] LABS: CARBON DIOXIDE 27 MMOL/L (21-32)
[2020-06-28 03:56] LABS: PHOSPHORUS 2.7 MG/DL (2.3-4.7)
[2020-06-28 03:57] LABS: CREATININE SERUM 0.45 MG/DL (0.60-1.30); GFR ESTIMATED > 60
[2020-06-28 03:58] LABS: BUN/CREATININE RATIO 7
[2020-06-28 03:59] LABS: MAGNESIUM 1.8 MG/DL (1.6-2.4)
--- NOTE | 2020-06-28 04:41 | Pulmonary Progress Note ---
Subjective Time Seen by a Provider: 04:36 Subjective/Events-last exam Pt is sedated on vent. Sepsis Event Evaluation Height, Weight, BMI Height: 6'0.00" Weight: 360lbs. 0.0oz. 163.397765nw; 46.28 BMI Method: Exam Exam Vital Signs Date Time Temp Pulse Resp B/P (MAP) Pulse Ox O2 Delivery O2 Flow Rate FiO2 06/28/20 04:00 36.3 82 19 103/71 (82) 97 Mechanical Ventilator 40.00 06/28/20 03:00 36.4 85 18 110/68 (82) 98 Mechanical Ventilator 40.00 06/28/20 02:00 36.7 93 27 106/67 (80) 100 Mechanical Ventilator 40.00 06/28/20 01:47 90 24 95 30 06/28/20 01:00 37.0 78 32 131/85 (100) 95 Mechanical Ventilator 40.00 06/28/20 01:00 78 06/28/20 00:45 78 06/28/20 00:44 129/90 06/28/20 00:00 36.9 78 132/84 (100) 96 Mechanical Ventilator 40.00 06/27/20 23:00 36.9 78 18 130/85 (100) 96 Mechanical Ventilator 40.00 06/27/20 22:00 36.8 79 129/82 (98) 96 Mechanical Ventilator 40.00 06/27/20 21:21 79 33 95 30 06/27/20 21:00 36.8 79 9 126/82 (97) 95 Mechanical Ventilator 40.00 06/27/20 20:48 95 Mechanical Ventilator 30 06/27/20 20:35 120/74 06/27/20 20:24 36.8 78 28 130/86 (101) 99 Mechanical Ventilator 40.00 06/27/20 20:00 36.8 78 133/86 (102) 99 Mechanical Ventilator 50.00 06/27/20 19:00 36.7 79 14 125/83 (97) 98 Mechanical Ventilator 50.00 06/27/20 19:00 79 06/27/20 18:40 50 06/27/20 18:30 78 29 99 50 06/27/20 18:00 77 27 123/78 (93) 99 Mechanical Ventilator 50.00 06/27/20 17:42 78 26 119/81 06/27/20 17:00 78 26 119/81 (94) 99 Mechanical Ventilator 50.00 06/27/20 16:00 78 19 117/72 (87) 100 Mechanical Ventilator 50.00 06/27/20 15:54 79 119/74 06/27/20 15:00 36.6 79 33 121/72 (88) 98 Mechanical Ventilator 50.00 06/27/20 14:40 Mechanical Ventilator 50.00 06/27/20 14:31 76 23 100 60 06/27/20 14:00 36.6 76 129/78 (95) 100 Mechanical Ventilator 60.00 06/27/20 13:39 50 06/27/20 13:11 77 06/27/20 13:00 36.3 77 27 132/82 (99) 100 Mechanical Ventilator 60.00 06/27/20 12:00 36.3 78 20 126/79 (95) 99 Mechanical Ventilator 60.00 06/27/20 11:45 79 121/80 06/27/20 11:00 36.4 81 17 116/73 (87) 97 Mechanical Ventilator 60.00 06/27/20 10:40 79 20 94 60 06/27/20 10:00 36.3 80 8 119/88 (98) 95 Mechanical Ventilator 60.00 06/27/20 09:00 36.3 77 20 127/83 (98) 94 Mechanical Ventilator 60.00 06/27/20 08:00 93 Mechanical Ventilator 70 06/27/20 08:00 36.2 80 123/82 (96) 92 Mechanical Ventilator 60.00 06/27/20 07:00 36.2 75 20 124/81 (95) 94 Mechanical Ventilator 60.00 06/27/20 06:58 75 26 94 60 06/27/20 06:29 74 06/27/20 06:28 75 06/27/20 06:26 75 06/27/20 06:00 36.2 76 19 127/81 (96) 94 Mechanical Ventilator 60.00 06/27/20 05:16 Mechanical Ventilator 60.00 06/27/20 05:00 36.2 76 21 136/87 (103) 94 Mechanical Ventilator 70.00 I & O 06/28/20 07:00 Intake Total 1320 ml Output Total 4300 ml Balance -2980 ml Height & Weight Height: 6'0.00" Weight: 360lbs. 0.0oz. 163.990920nr; 46.28 BMI Method: General Appearance: Mild Distress HEENT: PERRL/EOMI, Pharynx Normal Neck: Full Range of Motion, Normal Inspection, Non Tender, Supple Respiratory: Accessory Muscle Use, Crackles, Decreased Breath Sounds Cardiovascular: Regular Rate, Rhythm, No Gallop, No Murmur, Normal Peripheral Pulses Capillary Refill: Less Than 3 Seconds Gastrointestinal: normal bowel sounds, non tender, soft Extremity: Normal Capillary Refill, Normal Inspection, No Pedal Edema Neurologic/Psychiatric: Alert Skin: Normal Color, Warm/Dry Results Lab Laboratory Tests 06/27/20 02:55 06/27/20 12:40 06/28/20 03:24 Assessment/Plan Assessment/Plan COVID with pneumonia and acute respiratory failure -Pt was intubated 06/10 -Pt Self extubated this morning -EICU managed pt through the night -Vent 400//--- 40% -Decrease PEEP to 10 -Precedex 1.5, propofol 40, Fentanyl 400, and Versed 10mg, - TF -Lasix - Change to daily -S/p Decadron , CVP - Proning -callejas cultures pending -Pt does not qualify for Remdesivir Pneumonia TM 38.7 -Continue Zosyn and Eraxis -s/p Vanco Hypertriglyceridemia -improving HTN and sinus tachycardia -Lopressor 25mg BID hypokalemia -Replace DM s/p Acute DKA Levemier -SSI -10 units of Levemir -Hold home PO diabetic meds Leukocytosis - currently on Zosyn -Continue to monitor -Recheck PCT Morbid obesity DVT/GI ppx -Theraputic dose ortega Elias JASON M DO Jun 28, 2020 04:41
[2020-06-28] MEDS: FENTANYL IV SCH ×4 (04:48→22:46)
[2020-06-28] MEDS: NS IV SCH ×4 (04:48→22:46)
[2020-06-28] MEDS: POTASSIUM CL 10MEQ/50ML IVPB 50 ML IV SCH ×6 (05:00→07:40)
[2020-06-28] MEDS: inSUlin ASPART (NovoLOG) 1 UNIT/0.01 ML (CHARGE PER UNIT) SC SCH ×4 (05:00→23:35)
[2020-06-28] MEDS: KCL 20 MEQ TAB (K-DUR) PO SCH (05:00)
[2020-06-28] MEDS: MAGNESIUM 1 GM/100 ML IVPB 100 ML IV SCH (05:00)
[2020-06-28] MEDS: LACTATED RINGERS 1,000 ML IV SCH ×2 (05:13→11:30)
[2020-06-28] MEDS: DOCOSANOL 10 % CREAM (ABREVA) 2 GM TP SCH ×5 (06:13→20:29)
[2020-06-28] MEDS: METOCLOPRAMIDE INJ 10 MG/2 ML (REGLAN) IVP SCH ×2 (07:40→17:56)
[2020-06-28] MEDS: VALACYCLOVIR 500 MG TAB (VALTREX) PO SCH ×2 (07:49→20:28)
[2020-06-28] MEDS: SPIRONOLACTONE 25 MG (ALDACTONE) TAB PO SCH (07:49)
[2020-06-28] MEDS: meTOprolol TARTRATE 25 MG (LOPRESSOR) TABLET PO SCH ×2 (07:49→20:28)
[2020-06-28] MEDS: LACTULOSE SYRUP 10GM/15ML (ENULOSE) 30ML UDC PO SCH ×2 (07:50→20:28)
[2020-06-28] MEDS: ARTIFICIAL TEARS OINT (LACRI-LUBE) 3.5 GM TUBE OU SCH ×3 (07:50→20:29)
[2020-06-28] MEDS: DOCUSATE SODIUM 100 MG (COLACE) CAP PO SCH ×2 (07:50→20:28)
[2020-06-28] MEDS: PANTOPRAZOLE 40 MG (PROTONIX) VIAL IV SCH (07:50)
[2020-06-28] MEDS: FUROSEMIDE 40 MG/4 ML INJ (LASIX) IVP SCH (07:50)
[2020-06-28] MEDS: risperiDONE 1 MG (RisperDAL) TAB PO SCH ×2 (07:50→20:28)
[2020-06-28] MEDS ORDERED: aCETylcysteine 20% (MUCOMYST) 30ML SOLN VIAL INH PRN (08:00)
--- NOTE | 2020-06-28 08:03 | Physical Therapy Progress Note ---
Therapy Progress Note Patient remains sedated and intubated. PT will continue to monitor. LYNDSAY PERRY PT Jun 28, 2020 08:03
--- NOTE | 2020-06-28 08:08 | Diagnostic Imaging Report ---
INDICATION: Covid. COMPARISON: 06/27/2020. FINDINGS: There are bilateral infiltrates while substantial at least mildly improved from radiograph of . Right IJ and PICC catheter is in the SVC. ET tube upper thoracic trachea. IMPRESSION: While significant 5 lobe infiltrates are present, there has been improvement from comparison with no adverse development. Dictated by: Dictated on workstation # [id number]
[2020-06-28] MEDS: MIDAZOLAM DRIP PRE-MIX 100 ML IV SCH (10:46)
--- NOTE | 2020-06-28 11:25 | Physical Therapy Progress Note ---
Therapy Progress Note Non skilled PROM B U/LE all available planes. JAS TEMPLE PT Jun 28, 2020 11:25
[2020-06-28] MEDS: ENOXAPARIN 300 MG/3 ML (LOVENOX) MULTI-DOSE VIAL SQ SCH ×2 (11:28→23:36)
--- NOTE | 2020-06-28 15:41 | NUR ---
UPDATED PT'S MOM ON PT'S CONDITION, WAS ABLE TO "FACE TIME WITH FAMILY," Addendum: 06/28/20 at 1555 by MEGHNA LYNN RN PT'S MOTHER ASKED ABOUT [facility], THIS RN ASKED DR BRIGHT FOR A REFERRAL TO [facility] AND ORDERS RECEIVED "NO NOW".
[2020-06-29] MEDS: RT-ALBUTEROL INHALER HFA (VENTOLIN HFA) 18 GM IH SCH ×6 (02:35→22:05)
[2020-06-29 02:36] VITALS: BP 122/75
[2020-06-29 03:38] LABS: BASOPHILS # (AUTO) 0.1 10^3/uL (0.0-0.1); BASOPHILS % (AUTO) 1 % (0-10); EOSINOPHILS # (AUTO) 0.4 10^3/uL (0.0-0.3); EOSINOPHILS % (AUTO) 5 % (0-10); HEMATOCRIT 29 % (40-54); HEMOGLOBIN 9.6 g/dL (13.3-17.7); LYMPHOCYTES # (AUTO) 1.7 10^3/uL (1.0-4.0); LYMPHOCYTES % (AUTO) 23 % (12-44); MEAN CORPUSCULAR HEMOGLOBIN 29 pg (25-34); MEAN CORPUSCULAR HGB CONC 33 g/dL (32-36); MEAN CORPUSCULAR VOLUME 89 fL (80-99); MEAN PLATELET VOLUME 9.7 fL (9.0-12.2); MONOCYTES # (AUTO) 0.6 10^3/uL (0.0-1.0); MONOCYTES % (AUTO) 9 % (0-12); NEUTROPHILS # (AUTO) 4.5 10^3/uL (1.8-7.8); NEUTROPHILS % (AUTO) 62 % (42-75); PLATELET COUNT 216 10^3/uL (130-400); WHITE BLOOD COUNT 7.3 10^3/uL (4.3-11.0)
[2020-06-29 03:42] LABS: ABG BASE EXCESS 6.3 MMOL/L (-2.5-2.5); ABG OXYGEN SATURATION 95 % (94-100); ABG PCO2 51 MMHG (35-45); ABG PO2 87 MMHG (79-93); ABG TCO2 32.4 MMOL/L (21.0-31.0)
[2020-06-29 03:44] LABS: ALLENS TEST YES-POS; INSPIRED O2 40%; PATIENT TEMP 37.4; VENTILATOR YES
[2020-06-29 04:02] LABS: BUN/CREATININE RATIO 4; CARBON DIOXIDE 27 MMOL/L (21-32); CHLORIDE 101 MMOL/L (98-107); CREATININE SERUM 0.47 MG/DL (0.60-1.30); GFR ESTIMATED > 60; GLUCOSE 150 MG/DL (70-105); MAGNESIUM 1.6 MG/DL (1.6-2.4); PHOSPHORUS 3.2 MG/DL (2.3-4.7); POTASSIUM 3.2 MMOL/L (3.6-5.0); SODIUM 141 MMOL/L (135-145)
--- NOTE | 2020-06-29 04:39 | Pulmonary Progress Note ---
Subjective Time Seen by a Provider: 04:34 Subjective/Events-last exam Pt is sedated on the vent. Sepsis Event Evaluation Height, Weight, BMI Height: 6'0.00" Weight: 360lbs. 0.0oz. 163.200317hb; 46.28 BMI Method: Exam Exam Vital Signs Date Time Temp Pulse Resp B/P (MAP) Pulse Ox O2 Delivery O2 Flow Rate FiO2 06/29/20 04:00 37.8 80 22 126/72 (90) 94 Mechanical Ventilator 40.00 06/29/20 03:00 37.4 78 23 125/73 (90) 96 Mechanical Ventilator 40.00 06/29/20 02:36 77 20 94 35 06/29/20 02:00 37.4 79 19 122/75 (91) 94 Mechanical Ventilator 40.00 06/29/20 01:40 Mechanical Ventilator 40.00 06/29/20 01:00 81 06/29/20 01:00 37.6 80 24 120/69 (86) 93 Mechanical Ventilator 35.00 06/29/20 00:00 37.6 80 23 125/73 (90) 92 Mechanical Ventilator 35.00 06/28/20 23:36 81 06/28/20 23:36 120/72 06/28/20 23:00 37.6 80 23 129/72 (91) 96 Mechanical Ventilator 35.00 06/28/20 22:54 81 26 93 35 06/28/20 22:00 37.6 81 24 126/75 (92) 96 Mechanical Ventilator 35.00 06/28/20 21:00 37.6 82 23 124/75 (91) 94 Mechanical Ventilator 35.00 06/28/20 20:48 94 Mechanical Ventilator 35 06/28/20 20:27 37.6 82 22 126/72 (90) 95 Mechanical Ventilator 30.00 06/28/20 19:00 37.6 81 20 126/70 (88) 100 Mechanical Ventilator 35.00 06/28/20 19:00 84 06/28/20 18:53 82 23 95 35 06/28/20 18:03 83 124/72 06/28/20 18:00 37.5 83 22 121/70 (87) 96 Mechanical Ventilator 35.00 06/28/20 17:00 37.4 83 19 129/74 (92) 96 Mechanical Ventilator 35.00 06/28/20 16:00 37.3 86 18 123/75 (91) 95 Mechanical Ventilator 35.00 06/28/20 15:00 37.3 83 15 124/72 (89) 95 Mechanical Ventilator 35.00 06/28/20 14:35 37.2 83 95 32 06/28/20 14:29 82 22 95 35 06/28/20 14:00 37.2 83 19 123/73 (90) 96 Mechanical Ventilator 35.00 06/28/20 13:20 84 123/76 06/28/20 13:00 37.1 85 18 120/74 (89) 96 Mechanical Ventilator 35.00 06/28/20 12:36 85 06/28/20 12:00 36.9 86 21 121/75 (90) 95 Mechanical Ventilator 35.00 06/28/20 11:00 37.0 89 23 101/59 (73) 92 Mechanical Ventilator 35.00 06/28/20 10:46 86 24 115/78 06/28/20 10:06 86 24 93 35 06/28/20 10:00 36.8 85 20 116/77 (90) 94 Mechanical Ventilator 35.00 06/28/20 09:00 36.7 89 44 114/74 (87) 93 Mechanical Ventilator 35.00 06/28/20 08:30 93 Mechanical Ventilator 35 06/28/20 08:00 36.7 85 24 112/80 (91) 93 Mechanical Ventilator 35.00 06/28/20 07:00 36.6 80 20 110/76 (87) 93 Mechanical Ventilator 35.00 06/28/20 06:52 80 21 93 35 06/28/20 06:41 81 06/28/20 06:14 Mechanical Ventilator 35.00 06/28/20 06:00 36.5 80 18 109/71 (84) 94 Mechanical Ventilator 40.00 06/28/20 05:07 82 06/28/20 05:07 109/73 06/28/20 05:00 36.4 80 21 109/73 (85) 97 Mechanical Ventilator 40.00 I & O 06/29/20 07:00 Intake Total 960 ml Output Total 4500 ml Balance -3540 ml Height & Weight Height: 6'0.00" Weight: 360lbs. 0.0oz. 163.401299yy; 46.28 BMI Method: General Appearance: Mild Distress HEENT: PERRL/EOMI, Pharynx Normal Neck: Full Range of Motion, Normal Inspection, Non Tender, Supple Respiratory: Accessory Muscle Use, Crackles, Decreased Breath Sounds Cardiovascular: Regular Rate, Rhythm, No Gallop, No Murmur, Normal Peripheral Pulses Capillary Refill: Less Than 3 Seconds Gastrointestinal: normal bowel sounds, non tender, soft Extremity: Normal Capillary Refill, Normal Inspection, No Pedal Edema Neurologic/Psychiatric: Alert Skin: Normal Color, Warm/Dry Results Lab Laboratory Tests 06/27/20 12:40 06/28/20 03:24 06/29/20 03:28 Assessment/Plan Assessment/Plan COVID with pneumonia and acute respiratory failure -Pt was intubated 06/10 -Pt Self extubated this morning -EICU managed pt through the night -Vent 400/--- 40% -Decrease PEEP to 10 -Precedex 1.5, propofol 40, Fentanyl 400, and Versed 10mg, - TF -Lasix - Change to daily -S/p Decadron , CVP - Proning -callejas cultures pending -Pt does not qualify for Remdesivir Pneumonia TM 101.2 currently - Zosyn and Eraxis auto stopped. Pt is now running fever -Repeat cultures and start Merrem and zyvox. -s/p Vanco Hypertriglyceridemia -improving HTN and sinus tachycardia -Lopressor 25mg BID hypokalemia -Replace DM s/p Acute DKA Levemier -SSI -10 units of Levemir -Hold home PO diabetic meds Leukocytosis - currently on Zosyn -Continue to monitor -Recheck PCT Morbid obesity DVT/GI ppx -Theraputic dose ortega Elias JASON M DO Jun 29, 2020 04:38
[2020-06-29] MEDS ORDERED: PHARMACY TO DOSE IV SCH (04:45)
[2020-06-29] MEDS ORDERED: WATER (STERILE) FOR INJECTION 10 ML ONE (05:01)
[2020-06-29] MEDS ORDERED: MEROPENEM 500 MG VIAL (MERREM) IV ONE (05:01)
[2020-06-29] MEDS: MIDAZOLAM DRIP PRE-MIX 100 ML IV SCH ×4 (05:14→23:24)
[2020-06-29] MEDS: PROPOFOL DRIP (ICU) 100 ML IV SCH ×4 (05:19→15:01)
[2020-06-29] MEDS: MAGNESIUM 1 GM/100 ML IVPB 100 ML IV SCH ×3 (05:38→05:52)
[2020-06-29] MEDS: POTASSIUM CL 10MEQ/50ML IVPB 50 ML IV SCH ×9 (05:38→11:47)
[2020-06-29] MEDS: MEROPENEM 500 MG in WATER (STERILE) FOR INJECTION 10 ML IV SCH ×4 (05:39→21:06)
[2020-06-29] MEDS: inSUlin ASPART (NovoLOG) 1 UNIT/0.01 ML (CHARGE PER UNIT) SC SCH ×4 (05:48→23:23)
[2020-06-29] MEDS: KCL 20 MEQ TAB (K-DUR) PO SCH (05:52)
[2020-06-29 06:00] LABS: CLARITY,URINE CLOUDY; COLOR,URINE BROWN; GLUCOSE, URINE (UA) NEGATIVE (NEGATIVE); KETONES,URINE 3+ (NEGATIVE); LEUKOCYTE ESTERASE ,URINE 3+ (NEGATIVE); NITRITE,URINE NEGATIVE (NEGATIVE); PROTEIN,URINE 1+ (NEGATIVE)
[2020-06-29 06:21] LABS: BILIRUBIN,URINE 2+ (NEGATIVE)
[2020-06-29 06:22] LABS: BACTERIA,URINE LARGE /HPF; RBC,URINE 25-50 /HPF; WBC,URINE TNTC /HPF
[2020-06-29 06:23] LABS: YEAST,URINE LARGE /HPF
[2020-06-29] MEDS ORDERED: VANCOMYCIN INJECTION 2,000 MG in NS IV 500 ML 500 ML IV SCH (06:30)
--- NOTE | 2020-06-29 06:57 | Diagnostic Imaging Report ---
INDICATION: COVID positive. Time of exam 1:25 AM Correlation made with prior study one day earlier. Patient is intubated with ET tube at the level of the clavicular heads. Right IJ line has tip overlying the SVC. Right upper extremity PICC line has tip overlying the SVC. Extensive bilateral infiltrates left greatest persistent and appear to be increased on the left when compared with yesterday. There may be some pleural fluid on the left as well. No pneumothorax is identified. IMPRESSION: Worsening pulmonary infiltrates particularly on the left when compared to examination one day earlier. Report was faxed to [facility] Infection Control by ming at 6:58AM. Dictated by: Dictated on workstation # [id number]
[2020-06-29] MEDS ORDERED: ANIDULAFUNGIN INJECTION 200 MG in NS (IVPB) 250 ML IV ONE (07:00)
[2020-06-29 07:12] VITALS: BP 128/78
[2020-06-29] MEDS: NS IV SCH ×4 (07:22→23:29)
[2020-06-29] MEDS: FENTANYL IV SCH ×4 (07:22→23:29)
[2020-06-29] MEDS: meTOprolol TARTRATE 25 MG (LOPRESSOR) TABLET PO SCH ×2 (08:10→21:04)
[2020-06-29] MEDS: FUROSEMIDE 40 MG/4 ML INJ (LASIX) IVP SCH (08:11)
[2020-06-29] MEDS: METOCLOPRAMIDE INJ 10 MG/2 ML (REGLAN) IVP SCH ×2 (08:11→17:36)
[2020-06-29] MEDS: PANTOPRAZOLE 40 MG (PROTONIX) VIAL IV SCH (08:11)
[2020-06-29] MEDS: SPIRONOLACTONE 25 MG (ALDACTONE) TAB PO SCH (08:11)
[2020-06-29] MEDS: risperiDONE 1 MG (RisperDAL) TAB PO SCH ×2 (08:11→21:04)
[2020-06-29] MEDS: DOCOSANOL 10 % CREAM (ABREVA) 2 GM TP SCH ×5 (08:13→21:04)
[2020-06-29] MEDS: ARTIFICIAL TEARS OINT (LACRI-LUBE) 3.5 GM TUBE OU SCH ×3 (08:13→21:06)
[2020-06-29] MEDS: VALACYCLOVIR 500 MG TAB (VALTREX) PO SCH ×2 (08:16→21:04)
[2020-06-29] MEDS: LACTULOSE SYRUP 10GM/15ML (ENULOSE) 30ML UDC PO SCH ×2 (09:47→21:05)
[2020-06-29] MEDS: DOCUSATE SODIUM 100 MG (COLACE) CAP PO SCH ×2 (09:47→21:05)
--- NOTE | 2020-06-29 10:44 | Physical Therapy Progress Note ---
Therapy Progress Note Non skilled PROM B U/LE in available planes. JAS TEMPLE PT Jun 29, 2020 10:44
[2020-06-29] MEDS: ENOXAPARIN 300 MG/3 ML (LOVENOX) MULTI-DOSE VIAL SQ SCH ×2 (11:06→23:22)
[2020-06-29] MEDS: VANCOMYCIN INJECTION 2,250 MG in NS IV 500 ML 500 ML IV SCH ×3 (11:06→23:22)
[2020-06-29 11:12] VITALS: BP 120/72
--- NOTE | 2020-06-29 14:30 | NUR ---
CALL PLACED TO PATIENT MOTHER, UPDATE GIVEN, QUESTIONS ANSWERED. MOTHER QUESTIONED THIS NURSE REGARDING [facility]. EXPLAINED THAT DR. BRIGHT DID NOT FEEL PATIENT WAS READY FOR TRANSFER AT THIS TIME, BUT WE WOULD KEEP HER UPDATED.
[2020-06-29 14:36] VITALS: BP 135/82
--- NOTE | 2020-06-29 17:00 | NUR ---
Note pt currently receiving Pulmocare via 120ml bolus feeds q4h with 30ml free water flushes before/after each bolus. Note pt is no longer proning, per chart review. Recommend continue to increase TF by 30ml q8h toward goal of 240ml bolus feeds q4h. Will continue to follow and reassess as pt needs, intake, and status change. Carl Trinh, MS RD [phone] cell
[2020-06-29 19:39] VITALS: BP 131/88
[2020-06-29] MEDS: LACTATED RINGERS 1,000 ML IV SCH (21:05)
[2020-06-29 22:06] VITALS: BP 125/83
[2020-06-30] VITALS (7 sets, daily range): BP systolic 107–122; BP diastolic 76–82
[2020-06-30] MEDS: PROPOFOL DRIP (ICU) 100 ML IV SCH ×4 (02:06→22:56)
[2020-06-30 02:22] LABS: ABG BASE EXCESS 6.8 MMOL/L (-2.5-2.5); ABG OXYGEN SATURATION 80 % (94-100); ABG PCO2 54 MMHG (35-45); ABG PH 7.39 (7.37-7.43); ABG PO2 58 MMHG (79-93); ABG TCO2 33.3 MMOL/L (21.0-31.0)
[2020-06-30 02:23] LABS: BASOPHILS # (AUTO) 0.1 10^3/uL (0.0-0.1); BASOPHILS % (AUTO) 1 % (0-10); EOSINOPHILS # (AUTO) 0.4 10^3/uL (0.0-0.3); EOSINOPHILS % (AUTO) 5 % (0-10); HEMATOCRIT 29 % (40-54); HEMOGLOBIN 9.3 g/dL (13.3-17.7); LYMPHOCYTES # (AUTO) 1.5 10^3/uL (1.0-4.0); LYMPHOCYTES % (AUTO) 21 % (12-44); MEAN CORPUSCULAR HEMOGLOBIN 28 pg (25-34); MEAN CORPUSCULAR HGB CONC 32 g/dL (32-36); MEAN CORPUSCULAR VOLUME 89 fL (80-99); MEAN PLATELET VOLUME 9.4 fL (9.0-12.2); MONOCYTES # (AUTO) 0.6 10^3/uL (0.0-1.0); MONOCYTES % (AUTO) 9 % (0-12); NEUTROPHILS # (AUTO) 4.5 10^3/uL (1.8-7.8); NEUTROPHILS % (AUTO) 64 % (42-75); PLATELET COUNT 218 10^3/uL (130-400); WHITE BLOOD COUNT 7.1 10^3/uL (4.3-11.0)
[2020-06-30] MEDS: RT-ALBUTEROL INHALER HFA (VENTOLIN HFA) 18 GM IH SCH ×6 (02:23→21:33)
[2020-06-30 02:26] LABS: ALLENS TEST POSITIVE; INSPIRED O2 32; PATIENT TEMP 37.2; VENTILATOR YES
[2020-06-30 02:31] LABS: CHLORIDE 101 MMOL/L (98-107); POTASSIUM 3.5 MMOL/L (3.6-5.0); SODIUM 139 MMOL/L (135-145)
[2020-06-30 02:33] LABS: CALCIUM 7.8 MG/DL (8.5-10.1); GLUCOSE 155 MG/DL (70-105); TRIGLYCERIDES 366 MG/DL (<150)
[2020-06-30 02:35] LABS: CARBON DIOXIDE 27 MMOL/L (21-32)
[2020-06-30 02:37] LABS: CREATININE SERUM 0.45 MG/DL (0.60-1.30); GFR ESTIMATED > 60; PHOSPHORUS 3.3 MG/DL (2.3-4.7)
[2020-06-30 02:38] LABS: BUN/CREATININE RATIO 7
[2020-06-30 02:40] LABS: MAGNESIUM 1.7 MG/DL (1.6-2.4)
[2020-06-30] MEDS: POTASSIUM CL 10MEQ/50ML IVPB 50 ML IV SCH ×6 (04:12→06:38)
[2020-06-30] MEDS: MAGNESIUM 1 GM/100 ML IVPB 100 ML IV SCH ×3 (04:13→05:37)
[2020-06-30] MEDS: MEROPENEM 500 MG in WATER (STERILE) FOR INJECTION 10 ML IV SCH ×4 (04:13→22:53)
[2020-06-30] MEDS: inSUlin ASPART (NovoLOG) 1 UNIT/0.01 ML (CHARGE PER UNIT) SC SCH ×3 (04:26→17:43)
[2020-06-30] MEDS: KCL 20 MEQ TAB (K-DUR) PO SCH (04:26)
--- NOTE | 2020-06-30 05:23 | Pulmonary Progress Note ---
Subjective Time Seen by a Provider: 05:18 Subjective/Events-last exam Pt is sedated on vent. Sepsis Event Evaluation Height, Weight, BMI Height: 6'0.00" Weight: 360lbs. 0.0oz. 163.273953mb; 46.28 BMI Method: Focused Exam Lactate Level 06/29/20 05:30: Lactic Acid Level 0.89 Exam Exam Vital Signs Date Time Temp Pulse Resp B/P (MAP) Pulse Ox O2 Delivery O2 Flow Rate FiO2 06/30/20 04:11 37.4 Mechanical Ventilator 36.00 06/30/20 04:00 89 19 126/85 (99) 93 Mechanical Ventilator 32.00 06/30/20 03:00 96 21 129/87 (101) 90 Mechanical Ventilator 32.00 06/30/20 02:23 89 27 92 32 06/30/20 02:16 37.3 Mechanical Ventilator 32.00 06/30/20 02:08 74 06/30/20 02:06 74 06/30/20 02:00 79 20 122/83 (96) 92 Mechanical Ventilator 36.00 06/30/20 01:00 78 27 126/83 (97) 92 Mechanical Ventilator 36.00 06/30/20 01:00 80 06/30/20 00:00 79 26 130/84 (99) 93 Mechanical Ventilator 36.00 06/29/20 23:24 74 06/29/20 23:23 74 06/29/20 23:00 80 19 127/86 (100) 93 Mechanical Ventilator 36.00 06/29/20 22:06 84 21 94 36 06/29/20 22:00 88 17 125/81 (96) 94 Mechanical Ventilator 36.00 06/29/20 21:00 79 16 126/79 (95) 94 Mechanical Ventilator 36.00 06/29/20 20:45 92 Mechanical Ventilator 36 06/29/20 20:00 37.2 Mechanical Ventilator 36.00 06/29/20 20:00 83 19 128/81 (97) 93 Mechanical Ventilator 36.00 06/29/20 19:39 84 27 96 45 06/29/20 19:00 92 18 131/89 (103) 97 Mechanical Ventilator 40.00 06/29/20 19:00 101 06/29/20 18:00 93 26 148/97 (114) 93 Mechanical Ventilator 40.00 06/29/20 17:00 37.5 80 28 137/74 (95) 93 Mechanical Ventilator 40.00 06/29/20 16:00 37.4 80 28 129/78 (95) 93 Mechanical Ventilator 40.00 06/29/20 15:01 78 06/29/20 15:00 37.5 25 138/74 (95) 92 Mechanical Ventilator 40.00 06/29/20 15:00 85 06/29/20 14:36 83 24 95 45 06/29/20 14:00 37.4 26 134/85 (101) 91 Mechanical Ventilator 40.00 06/29/20 13:00 26 142/83 (102) 92 Mechanical Ventilator 40.00 06/29/20 12:41 81 06/29/20 12:00 28 143/89 (107) 94 Mechanical Ventilator 40.00 06/29/20 11:12 85 24 93 40 06/29/20 11:00 26 120/72 (88) 95 Mechanical Ventilator 40.00 06/29/20 10:00 26 103/58 (73) 91 Mechanical Ventilator 40.00 06/29/20 09:00 85 28 116/67 (83) 93 Mechanical Ventilator 40.00 06/29/20 08:00 80 21 129/80 (96) 95 Mechanical Ventilator 40.00 06/29/20 08:00 93 Mechanical Ventilator 40 06/29/20 07:12 78 21 94 40 06/29/20 07:00 78 20 128/78 (95) 95 Mechanical Ventilator 40.00 06/29/20 06:31 81 06/29/20 06:00 37.5 79 23 124/75 (91) 95 Mechanical Ventilator 40.00 06/29/20 05:47 37.0 06/29/20 05:20 79 06/29/20 05:19 126/79 I & O 06/30/20 07:00 Intake Total 4042.5 ml Output Total 3100 ml Balance 942.5 ml Height & Weight Height: 6'0.00" Weight: 360lbs. 0.0oz. 163.380253xo; 46.28 BMI Method: General Appearance: No Apparent Distress HEENT: PERRL/EOMI, Pharynx Normal Neck: Full Range of Motion, Normal Inspection, Non Tender, Supple Respiratory: Accessory Muscle Use, Crackles, Decreased Breath Sounds Cardiovascular: Regular Rate, Rhythm, No Gallop, No Murmur, Normal Peripheral Pulses Capillary Refill: Less Than 3 Seconds Gastrointestinal: normal bowel sounds, non tender, soft Extremity: Normal Capillary Refill, Normal Inspection, No Pedal Edema Neurologic/Psychiatric: Alert Skin: Normal Color, Warm/Dry Results Lab Laboratory Tests 06/29/20 03:28 06/30/20 02:00 Assessment/Plan Assessment/Plan COVID with pneumonia and acute respiratory failure -Pt was intubated 06/10 -Pt Self extubated this morning -EICU managed pt through the night -Vent 400//-- 36% -Precedex 1.5, propofol 40, Fentanyl 400, and Versed 10mg, - TF -Lasix - Change to daily -S/p Decadron , CVP - Proning - On hold for now -callejas cultures pending -Pt does not qualify for Remdesivir Pneumonia TM 101.2 currently - Zosyn and Eraxis auto stopped. Pt is now running fever -Repeat cultures and start Merrem and zyvox. -s/p Vanco Hypertriglyceridemia -improving HTN and sinus tachycardia -Lopressor 25mg BID hypokalemia -Replace DM s/p Acute DKA Levemier -SSI -10 units of Levemir -Hold home PO diabetic meds Leukocytosis - currently on Zosyn -Continue to monitor -Recheck PCT Morbid obesity DVT/GI ppx -Theraputic dose Lovenoortega bernstein JASON M DO Jun 30, 2020 05:23
[2020-06-30] MEDS: DOCOSANOL 10 % CREAM (ABREVA) 2 GM TP SCH ×5 (05:38→20:27)
[2020-06-30] MEDS: NS IV SCH ×3 (05:45→17:58)
[2020-06-30] MEDS: FENTANYL IV SCH ×3 (05:45→17:58)
--- NOTE | 2020-06-30 06:16 | Diagnostic Imaging Report ---
Portable erect AP chest at 150 hours. INDICATION: Respiratory distress, Covid. This exam is less than optimal as the right costophrenic angle is not included. FINDINGS: The appearance of the chest has worsened since the prior study of 06/29/2020 as a new prominent area of increased density has developed in the right lung base. Most likely this is due to pneumonia/atelectasis. Conversely, the left upper lung and left lung base do seem slightly better aerated. The heart is stable in size. The mediastinum is not widened. The osseous structures are intact. The supportive tubes and lines seem stable. IMPRESSION: There are mixed results. There is much greater involvement of the right lung base by pneumonia/atelectasis but the left lung does seem slightly better aerated. A follow-up study would be recommended for continued evaluation. Dictated by: Dictated on workstation # [id number]
[2020-06-30] MEDS: METOCLOPRAMIDE INJ 10 MG/2 ML (REGLAN) IVP SCH ×2 (08:08→18:01)
[2020-06-30] MEDS: VANCOMYCIN INJECTION 2,250 MG in NS IV 500 ML 500 ML IV SCH ×3 (08:08→22:53)
[2020-06-30] MEDS: meTOprolol TARTRATE 25 MG (LOPRESSOR) TABLET PO SCH ×2 (08:10→20:26)
[2020-06-30] MEDS: VALACYCLOVIR 500 MG TAB (VALTREX) PO SCH ×2 (08:10→20:26)
[2020-06-30] MEDS: risperiDONE 1 MG (RisperDAL) TAB PO SCH ×2 (08:10→20:26)
[2020-06-30] MEDS: SPIRONOLACTONE 25 MG (ALDACTONE) TAB PO SCH (08:10)
[2020-06-30] MEDS: FUROSEMIDE 40 MG/4 ML INJ (LASIX) IVP SCH (08:10)
[2020-06-30] MEDS: PANTOPRAZOLE 40 MG (PROTONIX) VIAL IV SCH (08:10)
[2020-06-30] MEDS: LACTULOSE SYRUP 10GM/15ML (ENULOSE) 30ML UDC PO SCH ×2 (08:10→20:26)
[2020-06-30] MEDS: DOCUSATE SODIUM 100 MG (COLACE) CAP PO SCH ×2 (08:10→20:35)
[2020-06-30] MEDS: ARTIFICIAL TEARS OINT (LACRI-LUBE) 3.5 GM TUBE OU SCH ×3 (09:54→20:25)
[2020-06-30] MEDS: ANIDULAFUNGIN INJECTION 100 MG in NS (IVPB) 100 ML IV SCH (09:54)
[2020-06-30] MEDS: MIDAZOLAM DRIP PRE-MIX 100 ML IV SCH (09:55)
--- NOTE | 2020-06-30 10:24 | Physical Therapy Progress Note ---
Therapy Progress Note Non Skilled PROM B U/LE in available range. Wrist restraints and heel protectors in place. JAS TEMPLE PT Jun 30, 2020 10:24
[2020-06-30] MEDS: ENOXAPARIN 300 MG/3 ML (LOVENOX) MULTI-DOSE VIAL SQ SCH ×2 (11:19→22:55)
[2020-06-30] MEDS ORDERED: TROUGH ORDER-PHARMACY XX NR (14:00)
--- NOTE | 2020-06-30 14:01 | NUR ---
Note pt currently receiving Pulmocare via 150ml bolus feeds q4h with 30ml free water flushes before/after each bolus. Note pt is no longer proning, per chart review. Recommend continue to increase TF by 30ml q8h toward goal of 240ml bolus feeds q4h. Will continue to follow and reassess as pt needs, intake, and status change. Carl Trinh, MS RD [phone] cell
--- NOTE | 2020-06-30 14:58 | NUR ---
VANCOMYCIN DOSING TROUGH LEVEL 14.2 - CONTINUE CURRENT DOSE OF VANC 2250 MG Q8H
[2020-07-01 01:22] VITALS: BP 114/78
[2020-07-01] MEDS: RT-ALBUTEROL INHALER HFA (VENTOLIN HFA) 18 GM IH SCH ×6 (01:22→21:57)
[2020-07-01] MEDS: FENTANYL IV SCH ×4 (01:47→22:25)
[2020-07-01] MEDS: NS IV SCH ×4 (01:47→22:25)
[2020-07-01 01:48] LABS: BASOPHILS # (AUTO) 0.1 10^3/uL (0.0-0.1); BASOPHILS % (AUTO) 1 % (0-10); EOSINOPHILS # (AUTO) 0.4 10^3/uL (0.0-0.3); EOSINOPHILS % (AUTO) 5 % (0-10); HEMATOCRIT 29 % (40-54); HEMOGLOBIN 9.4 g/dL (13.3-17.7); LYMPHOCYTES # (AUTO) 1.5 10^3/uL (1.0-4.0); LYMPHOCYTES % (AUTO) 21 % (12-44); MEAN CORPUSCULAR HEMOGLOBIN 28 pg (25-34); MEAN CORPUSCULAR HGB CONC 32 g/dL (32-36); MEAN CORPUSCULAR VOLUME 89 fL (80-99); MEAN PLATELET VOLUME 9.7 fL (9.0-12.2); MONOCYTES # (AUTO) 0.7 10^3/uL (0.0-1.0); MONOCYTES % (AUTO) 10 % (0-12); NEUTROPHILS # (AUTO) 4.2 10^3/uL (1.8-7.8); NEUTROPHILS % (AUTO) 61 % (42-75); PLATELET COUNT 230 10^3/uL (130-400); WHITE BLOOD COUNT 6.8 10^3/uL (4.3-11.0)
[2020-07-01 01:59] LABS: ABG BASE EXCESS 5.3 MMOL/L (-2.5-2.5); ABG PCO2 43 MMHG (35-45); ABG PH 7.45 (7.37-7.43); ABG PO2 62 MMHG (79-93); ABG TCO2 30.9 MMOL/L (21.0-31.0); ALLENS TEST POSITIVE
[2020-07-01 02:00] LABS: INSPIRED O2 50; PATIENT TEMP 36; VENTILATOR YES
[2020-07-01] MEDS: inSUlin ASPART (NovoLOG) 1 UNIT/0.01 ML (CHARGE PER UNIT) SC SCH ×4 (02:02→17:00)
[2020-07-01 02:09] LABS: CHLORIDE 103 MMOL/L (98-107); POTASSIUM 3.9 MMOL/L (3.6-5.0); SODIUM 141 MMOL/L (135-145)
[2020-07-01 02:11] LABS: CALCIUM 7.9 MG/DL (8.5-10.1); GLUCOSE 170 MG/DL (70-105)
[2020-07-01 02:13] LABS: CARBON DIOXIDE 27 MMOL/L (21-32)
[2020-07-01 02:15] LABS: CREATININE SERUM 0.46 MG/DL (0.60-1.30); GFR ESTIMATED > 60; PHOSPHORUS 3.6 MG/DL (2.3-4.7)
[2020-07-01 02:16] LABS: BUN/CREATININE RATIO 7
[2020-07-01 02:17] LABS: MAGNESIUM 1.8 MG/DL (1.6-2.4)
[2020-07-01] MEDS: KCL 20 MEQ TAB (K-DUR) PO SCH (03:19)
[2020-07-01] MEDS: MAGNESIUM 1 GM/100 ML IVPB 100 ML IV SCH (03:19)
[2020-07-01] MEDS: POTASSIUM CL 10MEQ/50ML IVPB 50 ML IV SCH (03:19)
[2020-07-01] MEDS: PROPOFOL DRIP (ICU) 100 ML IV SCH ×5 (03:19→21:15)
--- NOTE | 2020-07-01 04:56 | Pulmonary Progress Note ---
Subjective Time Seen by a Provider: 04:55 Subjective/Events-last exam Pt is sedated on vent. Sepsis Event Evaluation Height, Weight, BMI Height: 6'0.00" Weight: 360lbs. 0.0oz. 163.465941up; 46.28 BMI Method: Focused Exam Lactate Level 06/29/20 05:30: Lactic Acid Level 0.89 Exam Exam Vital Signs Date Time Temp Pulse Resp B/P (MAP) Pulse Ox O2 Delivery O2 Flow Rate FiO2 07/01/20 03:21 37.1 93 Mechanical Ventilator 55.00 07/01/20 03:19 129/90 07/01/20 02:15 87 Mechanical Ventilator 60.00 07/01/20 01:22 87 27 93 55 06/30/20 23:11 36.9 06/30/20 23:00 36.9 84 21 125/85 (98) 93 Mechanical Ventilator 55.00 06/30/20 22:56 122/86 06/30/20 22:00 36.9 89 20 113/80 (91) 90 Mechanical Ventilator 55.00 06/30/20 21:33 87 27 94 55 06/30/20 21:00 36.8 87 17 119/79 (92) 93 Mechanical Ventilator 55.00 06/30/20 20:38 19 93 Mechanical Ventilator 55.00 06/30/20 20:00 36.7 97 19 119/77 (91) 91 Mechanical Ventilator 55.00 06/30/20 20:00 93 Mechanical Ventilator 55 06/30/20 19:28 36.8 06/30/20 19:00 36.9 115 22 119/71 (87) 90 Mechanical Ventilator 55.00 06/30/20 19:00 116 06/30/20 18:29 123 40 89 36 06/30/20 18:00 78 20 130/88 (102) 91 Mechanical Ventilator 36.00 06/30/20 17:00 77 22 115/78 (90) 89 Mechanical Ventilator 36.00 06/30/20 16:00 79 18 121/85 (97) 90 Mechanical Ventilator 36.00 06/30/20 15:18 37.0 06/30/20 15:00 82 19 122/85 (97) 90 Mechanical Ventilator 36.00 06/30/20 14:39 80 23 91 36 06/30/20 14:00 85 21 117/77 (90) 89 Mechanical Ventilator 36.00 06/30/20 13:00 80 06/30/20 13:00 78 18 111/75 (87) 91 Mechanical Ventilator 36.00 06/30/20 12:10 37.4 81 92 36 06/30/20 12:00 83 20 118/79 (92) 91 Mechanical Ventilator 36.00 06/30/20 11:00 80 18 107/76 (86) 92 Mechanical Ventilator 36.00 06/30/20 10:32 79 25 91 36 06/30/20 10:00 79 19 115/80 (92) 92 Mechanical Ventilator 36.00 06/30/20 09:58 80 06/30/20 09:55 80 06/30/20 09:55 80 06/30/20 09:00 87 20 113/78 (90) 92 Mechanical Ventilator 36.00 06/30/20 08:00 82 20 122/84 (97) 90 Mechanical Ventilator 36.00 06/30/20 08:00 90 Mechanical Ventilator 36 06/30/20 07:09 77 21 91 36 06/30/20 07:00 77 20 123/90 (101) 92 Mechanical Ventilator 36.00 06/30/20 07:00 79 06/30/20 06:00 78 20 121/81 (94) 92 Mechanical Ventilator 36.00 06/30/20 05:00 79 18 122/85 (97) 93 Mechanical Ventilator 36.00 I & O 07/01/20 07:00 Intake Total 900 ml Output Total 4100 ml Balance -3200 ml Height & Weight Height: 6'0.00" Weight: 360lbs. 0.0oz. 163.422592bj; 46.28 BMI Method: General Appearance: No Apparent Distress HEENT: PERRL/EOMI, Pharynx Normal Neck: Full Range of Motion, Normal Inspection, Non Tender, Supple Respiratory: Accessory Muscle Use, Crackles, Decreased Breath Sounds Cardiovascular: Regular Rate, Rhythm, No Gallop, No Murmur, Normal Peripheral Pulses Capillary Refill: Less Than 3 Seconds Gastrointestinal: normal bowel sounds, non tender, soft Extremity: Normal Capillary Refill, Normal Inspection, No Pedal Edema Neurologic/Psychiatric: Alert Skin: Normal Color, Warm/Dry Results Lab Laboratory Tests 06/30/20 02:00 07/01/20 01:35 Assessment/Plan Assessment/Plan COVID with pneumonia and acute respiratory failure -Pt was intubated 06/10 -Pt Self extubated this morning -EICU managed pt through the night -Vent 400/20/8-- 36% -Precedex 1.5, propofol 40, Fentanyl 400, and Versed 10mg, - TF -Lasix - -S/p Decadron , CVP - Proning - On hold for now -callejas cultures pending -Pt does not qualify for Remdesivir Pneumonia -- Now afebrial -Merrem and Vanco -Eraxis Hypertriglyceridemia -improving HTN and sinus tachycardia -Lopressor 25mg BID hypokalemia -Replace DM s/p Acute DKA Levemier -SSI -10 units of Levemir -Hold home PO diabetic meds Leukocytosis - currently on Zosyn -Continue to monitor -Recheck PCT Morbid obesity DVT/GI ppx -Theraputic dose Lovenox , pepcid NAT BRIGHT DO Jul 01, 2020 04:56
[2020-07-01] MEDS: LACTATED RINGERS 1,000 ML IV SCH ×2 (05:14→12:23)
[2020-07-01] MEDS: MEROPENEM 500 MG in WATER (STERILE) FOR INJECTION 10 ML IV SCH ×4 (05:33→22:17)
[2020-07-01] MEDS: VANCOMYCIN INJECTION 2,250 MG in NS IV 500 ML 500 ML IV SCH ×3 (05:57→22:17)
[2020-07-01 07:07] VITALS: BP 128/84
[2020-07-01] MEDS: DOCOSANOL 10 % CREAM (ABREVA) 2 GM TP SCH ×5 (07:23→21:26)
--- NOTE | 2020-07-01 07:45 | Diagnostic Imaging Report ---
EXAMINATION: Chest 1 view HISTORY: Covid 19 COMPARISON: 06/30/2020 FINDINGS: Endotracheal tube tip terminates 4 cm above the leidy. Gastric tube tip terminates below the field of view. Right internal jugular central venous catheter tip terminates in the superior vena cava. Right upper extremity peripherally inserted central venous catheter tip terminates in the superior vena cava. There are mild to moderate bilateral airspace opacities and small pleural effusions but no pneumothorax. Heart is mildly enlarged. Exam is unchanged. IMPRESSION: 1. Unchanged mild to moderate airspace opacities and small pleural effusions. Dictated by: Dictated on workstation # [id number]
[2020-07-01] MEDS: METOCLOPRAMIDE INJ 10 MG/2 ML (REGLAN) IVP SCH ×2 (09:30→17:04)
[2020-07-01] MEDS: LACTULOSE SYRUP 10GM/15ML (ENULOSE) 30ML UDC PO SCH ×2 (09:30→21:26)
[2020-07-01] MEDS: PANTOPRAZOLE 40 MG (PROTONIX) VIAL IV SCH (09:31)
[2020-07-01] MEDS: VALACYCLOVIR 500 MG TAB (VALTREX) PO SCH ×2 (09:31→21:25)
[2020-07-01] MEDS: FUROSEMIDE 40 MG/4 ML INJ (LASIX) IVP SCH (09:31)
[2020-07-01] MEDS: SPIRONOLACTONE 25 MG (ALDACTONE) TAB PO SCH (09:31)
[2020-07-01] MEDS: meTOprolol TARTRATE 25 MG (LOPRESSOR) TABLET PO SCH ×2 (09:31→21:26)
[2020-07-01] MEDS: ARTIFICIAL TEARS OINT (LACRI-LUBE) 3.5 GM TUBE OU SCH ×3 (09:32→21:27)
[2020-07-01] MEDS: ANIDULAFUNGIN INJECTION 100 MG in NS (IVPB) 100 ML IV SCH (09:32)
[2020-07-01] MEDS: DOCUSATE SODIUM 100 MG (COLACE) CAP PO SCH ×2 (09:32→21:17)
[2020-07-01] MEDS: risperiDONE 1 MG (RisperDAL) TAB PO SCH ×2 (09:33→21:26)
[2020-07-01] MEDS: ENOXAPARIN 300 MG/3 ML (LOVENOX) MULTI-DOSE VIAL SQ SCH ×2 (10:23→22:17)
--- NOTE | 2020-07-01 10:58 | Physical Therapy Progress Note ---
Therapy Progress Note Patient continues on vent. Will continue to follow. JEANNETTE STAPLES PT Jul 01, 2020 10:58
[2020-07-01 11:00] VITALS: BP 112/70
--- NOTE | 2020-07-01 13:05 | NUR ---
7633-PATIENT'S MOTHER SULMA CALLED AND UPDATES GIVEN. ALL QUESTIONS ANSWERED.
[2020-07-01] MEDS: MIDAZOLAM DRIP PRE-MIX 100 ML IV SCH (13:43)
[2020-07-01 14:56] VITALS: BP 113/72
[2020-07-01] MEDS ORDERED: DexMEDEtomidine PRE MIX 100 ML IV SCH (15:00)
[2020-07-01] MEDS: DexMEDEtomidine 250 ML DRIP 250 ML IV SCH ×2 (17:19→21:27)
[2020-07-01 18:43] VITALS: BP 118/74
[2020-07-01 21:58] VITALS: BP 114/72
[2020-07-02] VITALS (7 sets, daily range): BP systolic 92–129; BP diastolic 57–92
[2020-07-02] MEDS: RT-ALBUTEROL INHALER HFA (VENTOLIN HFA) 18 GM IH SCH ×5 (01:03→21:58)
[2020-07-02] MEDS: DexMEDEtomidine 250 ML DRIP 250 ML IV SCH ×7 (01:15→22:24)
[2020-07-02] MEDS: PROPOFOL DRIP (ICU) 100 ML IV SCH ×6 (02:28→22:24)
[2020-07-02] MEDS: FENTANYL IV SCH ×4 (02:29→20:20)
[2020-07-02] MEDS: NS IV SCH ×4 (02:29→20:20)
[2020-07-02 02:32] LABS: BASOPHILS # (AUTO) 0.1 10^3/uL (0.0-0.1); BASOPHILS % (AUTO) 1 % (0-10); EOSINOPHILS # (AUTO) 0.4 10^3/uL (0.0-0.3); EOSINOPHILS % (AUTO) 6 % (0-10); HEMATOCRIT 31 % (40-54); HEMOGLOBIN 9.7 g/dL (13.3-17.7); LYMPHOCYTES # (AUTO) 1.6 10^3/uL (1.0-4.0); LYMPHOCYTES % (AUTO) 20 % (12-44); MEAN CORPUSCULAR HEMOGLOBIN 28 pg (25-34); MEAN CORPUSCULAR HGB CONC 32 g/dL (32-36); MEAN CORPUSCULAR VOLUME 89 fL (80-99); MEAN PLATELET VOLUME 9.1 fL (9.0-12.2); MONOCYTES # (AUTO) 0.9 10^3/uL (0.0-1.0); MONOCYTES % (AUTO) 11 % (0-12); NEUTROPHILS # (AUTO) 4.9 10^3/uL (1.8-7.8); NEUTROPHILS % (AUTO) 61 % (42-75); PLATELET COUNT 259 10^3/uL (130-400); WHITE BLOOD COUNT 7.9 10^3/uL (4.3-11.0)
[2020-07-02] MEDS: inSUlin ASPART (NovoLOG) 1 UNIT/0.01 ML (CHARGE PER UNIT) SC SCH ×4 (02:33→17:47)
[2020-07-02 02:51] LABS: CHLORIDE 102 MMOL/L (98-107); POTASSIUM 3.4 MMOL/L (3.6-5.0); SODIUM 142 MMOL/L (135-145)
[2020-07-02 02:52] LABS: GLUCOSE 164 MG/DL (70-105)
[2020-07-02 02:53] LABS: TRIGLYCERIDES 503 MG/DL (<150)
[2020-07-02 02:54] LABS: CARBON DIOXIDE 28 MMOL/L (21-32)
[2020-07-02 02:56] LABS: CREATININE SERUM 0.46 MG/DL (0.60-1.30); GFR ESTIMATED > 60
[2020-07-02 02:57] LABS: BUN/CREATININE RATIO 4
[2020-07-02 02:59] LABS: MAGNESIUM 1.6 MG/DL (1.6-2.4)
[2020-07-02 03:28] LABS: ABG BASE EXCESS 6.5 MMOL/L (-2.5-2.5); ABG OXYGEN SATURATION 100 % (94-100); ABG PCO2 36 MMHG (35-45); ABG PH 7.52 (7.37-7.43); ABG PO2 184 MMHG (79-93); ABG TCO2 30.8 MMOL/L (21.0-31.0)
[2020-07-02 03:31] LABS: ALLENS TEST POSITIVE; INSPIRED O2 40; PATIENT TEMP 36.8; VENTILATOR YES
[2020-07-02] MEDS: MEROPENEM 500 MG in WATER (STERILE) FOR INJECTION 10 ML IV SCH ×4 (04:52→22:25)
--- NOTE | 2020-07-02 05:21 | Pulmonary Progress Note ---
Subjective Time Seen by a Provider: 05:18 Subjective/Events-last exam Sedated on vent. Sepsis Event Evaluation Height, Weight, BMI Height: 6'0.00" Weight: 360lbs. 0.0oz. 163.018031pj; 46.28 BMI Method: Focused Exam Lactate Level 06/29/20 05:30: Lactic Acid Level 0.89 Exam Exam Vital Signs Date Time Temp Pulse Resp B/P (MAP) Pulse Ox O2 Delivery O2 Flow Rate FiO2 07/02/20 05:04 126/81 07/02/20 02:28 153/99 07/02/20 01:15 84 153/99 07/02/20 01:12 84 21 94 40 07/02/20 01:03 84 21 94 40 07/01/20 23:00 36.9 85 18 117/75 (89) 95 Mechanical Ventilator 45.00 07/01/20 22:00 37.0 84 20 115/75 (88) 95 Mechanical Ventilator 45.00 07/01/20 21:58 83 24 94 40 07/01/20 21:29 37.0 83 20 118/74 (89) 95 Mechanical Ventilator 40.00 07/01/20 21:27 118/74 07/01/20 21:15 115/75 07/01/20 21:00 36.9 85 20 118/74 (89) 96 Mechanical Ventilator 45.00 07/01/20 20:00 36.8 83 20 119/79 (92) 96 Mechanical Ventilator 45.00 07/01/20 20:00 96 Mechanical Ventilator 45 07/01/20 19:00 36.8 82 19 119/79 (92) 96 Mechanical Ventilator 45.00 07/01/20 19:00 82 07/01/20 19:00 98 Mechanical Ventilator 45.00 07/01/20 18:43 81 24 96 45 07/01/20 18:00 36.8 85 19 117/80 (92) 97 Mechanical Ventilator 45.00 07/01/20 17:19 84 111/66 07/01/20 17:00 36.8 84 21 111/66 (81) 97 Mechanical Ventilator 45.00 07/01/20 16:00 36.8 83 19 112/64 (80) 97 Mechanical Ventilator 45.00 07/01/20 15:00 36.7 84 18 113/72 (86) 96 Mechanical Ventilator 45.00 07/01/20 14:56 84 27 96 45 07/01/20 14:48 Mechanical Ventilator 45.00 07/01/20 14:00 36.8 84 18 113/72 (86) 96 Mechanical Ventilator 55.00 07/01/20 13:44 85 116/76 07/01/20 13:43 85 20 116/76 07/01/20 13:43 85 20 116/76 07/01/20 13:00 36.6 85 20 116/76 (89) 98 Mechanical Ventilator 55.00 07/01/20 12:45 87 07/01/20 12:00 36.8 86 18 116/79 (91) 99 Mechanical Ventilator 55.00 07/01/20 11:00 36.8 87 19 112/73 (86) 96 Mechanical Ventilator 55.00 07/01/20 11:00 87 23 96 55 07/01/20 10:00 37.0 88 28 117/76 (90) 95 Mechanical Ventilator 55.00 07/01/20 09:00 37.0 96 23 137/102 (114) 90 Mechanical Ventilator 55.00 07/01/20 08:45 101 137/94 07/01/20 08:00 93 Mechanical Ventilator 55 07/01/20 08:00 36.9 101 22 137/94 (108) 90 Mechanical Ventilator 55.00 07/01/20 07:07 116 33 91 55 07/01/20 07:00 36.9 82 23 128/84 (99) 90 Mechanical Ventilator 55.00 07/01/20 07:00 118 07/01/20 06:00 37.1 92 18 119/80 (93) 91 Mechanical Ventilator 55.00 I & O 07/02/20 07:00 Intake Total 3692.5 ml Output Total 5470 ml Balance -1777.5 ml Height & Weight Height: 6'0.00" Weight: 360lbs. 0.0oz. 163.794376or; 46.28 BMI Method: General Appearance: No Apparent Distress HEENT: PERRL/EOMI, Pharynx Normal Neck: Full Range of Motion, Normal Inspection, Non Tender, Supple Respiratory: Accessory Muscle Use, Crackles, Decreased Breath Sounds Cardiovascular: Regular Rate, Rhythm, No Gallop, No Murmur, Normal Peripheral Pulses Capillary Refill: Less Than 3 Seconds Gastrointestinal: normal bowel sounds, non tender, soft Extremity: Normal Capillary Refill, Normal Inspection, No Pedal Edema Neurologic/Psychiatric: Alert Skin: Normal Color, Warm/Dry Results Lab Laboratory Tests 07/01/20 01:35 07/02/20 02:20 Assessment/Plan Assessment/Plan COVID with pneumonia and acute respiratory failure -Pt was intubated 06/10 -Pt Self extubated this morning -EICU managed pt through the night -Vent 400/20/10-- 40% -Precedex 1.5, propofol 40, Fentanyl 400, and Versed 10mg, - TF -Lasix - -S/p Decadron , CVP - Proning - On hold for now -callejas cultures pending -Pt does not qualify for Remdesivir Pneumonia -- Now afebrial -Merrem and Vanco -Eraxis Hypertriglyceridemia -improving HTN and sinus tachycardia -Lopressor 25mg BID hypokalemia -Replace DM s/p Acute DKA Levemier -SSI -10 units of Levemir -Hold home PO diabetic meds Leukocytosis - currently on Zosyn -Continue to monitor -Recheck PCT Morbid obesity DVT/GI ppx -Theraputic dose Lovenox , NAT Gracia DO Jul 02, 2020 05:21
[2020-07-02] MEDS: MAGNESIUM 1 GM/100 ML IVPB 100 ML IV SCH ×3 (05:43→06:36)
[2020-07-02] MEDS: POTASSIUM CL 10MEQ/50ML IVPB 50 ML IV SCH ×7 (05:43→08:44)
[2020-07-02] MEDS: KCL 20 MEQ TAB (K-DUR) PO SCH (05:44)
[2020-07-02] MEDS: VANCOMYCIN INJECTION 2,250 MG in NS IV 500 ML 500 ML IV SCH ×3 (06:36→22:25)
[2020-07-02] MEDS: MIDAZOLAM DRIP PRE-MIX 100 ML IV SCH ×2 (06:58→15:05)
[2020-07-02] MEDS: METOCLOPRAMIDE INJ 10 MG/2 ML (REGLAN) IVP SCH ×2 (07:31→16:45)
[2020-07-02] MEDS: VALACYCLOVIR 500 MG TAB (VALTREX) PO SCH ×2 (07:31→19:58)
[2020-07-02] MEDS: FUROSEMIDE 40 MG/4 ML INJ (LASIX) IVP SCH (07:32)
[2020-07-02] MEDS: LACTULOSE SYRUP 10GM/15ML (ENULOSE) 30ML UDC PO SCH ×2 (07:32→20:00)
[2020-07-02] MEDS: SPIRONOLACTONE 25 MG (ALDACTONE) TAB PO SCH (07:32)
[2020-07-02] MEDS: PANTOPRAZOLE 40 MG (PROTONIX) VIAL IV SCH (07:32)
[2020-07-02] MEDS: ARTIFICIAL TEARS OINT (LACRI-LUBE) 3.5 GM TUBE OU SCH ×3 (07:32→20:00)
[2020-07-02] MEDS: meTOprolol TARTRATE 25 MG (LOPRESSOR) TABLET PO SCH ×2 (07:33→19:59)
[2020-07-02] MEDS: risperiDONE 1 MG (RisperDAL) TAB PO SCH ×2 (07:33→19:59)
[2020-07-02] MEDS: DOCOSANOL 10 % CREAM (ABREVA) 2 GM TP SCH ×5 (08:01→20:10)
[2020-07-02] MEDS: DOCUSATE SODIUM 100 MG (COLACE) CAP PO SCH ×2 (08:02→20:00)
--- NOTE | 2020-07-02 08:39 | Diagnostic Imaging Report ---
EXAMINATION: Chest 1 view HISTORY: Covid 19 COMPARISON: 07/01/2020 FINDINGS: Right internal jugular central venous catheter tip terminates in the superior vena cava. Exam is limited by poor penetration. Endotracheal tube is not resolved. Aeration of the right lung is improved but there are persistent severe opacities in the left lung. Right upper extremity peripherally inserted central venous catheter tip terminates in the superior vena cava. Moderate disease remains in the right lung. No pneumothorax. IMPRESSION: 1. Improved now moderate airspace opacities in the right lung with unchanged severe left lung opacities consistent with Covid 19. Dictated by: Dictated on workstation # [id number]
[2020-07-02] MEDS: ANIDULAFUNGIN INJECTION 100 MG in NS (IVPB) 100 ML IV SCH (08:45)
--- NOTE | 2020-07-02 09:08 | NUR ---
0905-Yesika called and updates given.
[2020-07-02] MEDS: ENOXAPARIN 300 MG/3 ML (LOVENOX) MULTI-DOSE VIAL SQ SCH ×2 (09:46→22:25)
[2020-07-03] MEDS: RT-ALBUTEROL INHALER HFA (VENTOLIN HFA) 18 GM IH SCH ×6 (01:23→22:20)
[2020-07-03 01:24] VITALS: BP 104/62
[2020-07-03] MEDS: DexMEDEtomidine 250 ML DRIP 250 ML IV SCH ×6 (01:59→22:15)
[2020-07-03] MEDS: MIDAZOLAM DRIP PRE-MIX 100 ML IV SCH ×3 (01:59→20:23)
[2020-07-03] MEDS: inSUlin ASPART (NovoLOG) 1 UNIT/0.01 ML (CHARGE PER UNIT) SC SCH ×5 (01:59→23:38)
[2020-07-03 02:03] LABS: ABG BASE EXCESS 6.5 MMOL/L (-2.5-2.5); ABG OXYGEN SATURATION 97 % (94-100); ABG PCO2 52 MMHG (35-45); ABG PO2 90 MMHG (79-93); ABG TCO2 32.7 MMOL/L (21.0-31.0)
[2020-07-03] MEDS: FENTANYL IV SCH ×4 (02:04→20:52)
[2020-07-03] MEDS: NS IV SCH ×4 (02:04→20:52)
[2020-07-03 02:06] LABS: ALLENS TEST POSITIVE; INSPIRED O2 50; PATIENT TEMP 37.6; VENTILATOR YES
[2020-07-03 02:08] LABS: BASOPHILS % (AUTO) 1 % (0-10); EOSINOPHILS # (AUTO) 0.5 10^3/uL (0.0-0.3); EOSINOPHILS % (AUTO) 7 % (0-10); HEMATOCRIT 29 % (40-54); HEMOGLOBIN 9.2 g/dL (13.3-17.7); LYMPHOCYTES # (AUTO) 1.7 10^3/uL (1.0-4.0); LYMPHOCYTES % (AUTO) 23 % (12-44); MEAN CORPUSCULAR HEMOGLOBIN 29 pg (25-34); MEAN CORPUSCULAR HGB CONC 32 g/dL (32-36); MEAN CORPUSCULAR VOLUME 90 fL (80-99); MEAN PLATELET VOLUME 9.2 fL (9.0-12.2); MONOCYTES # (AUTO) 0.8 10^3/uL (0.0-1.0); MONOCYTES % (AUTO) 11 % (0-12); NEUTROPHILS # (AUTO) 4.3 10^3/uL (1.8-7.8); NEUTROPHILS % (AUTO) 58 % (42-75); PLATELET COUNT 256 10^3/uL (130-400); WHITE BLOOD COUNT 7.4 10^3/uL (4.3-11.0)
[2020-07-03] MEDS: PROPOFOL DRIP (ICU) 100 ML IV SCH ×5 (03:28→20:22)
[2020-07-03 04:21] LABS: BUN/CREATININE RATIO 8; CALCIUM 7.8 MG/DL (8.5-10.1); CARBON DIOXIDE 27 MMOL/L (21-32); CHLORIDE 103 MMOL/L (98-107); CREATININE SERUM 0.51 MG/DL (0.60-1.30); GFR ESTIMATED > 60; GLUCOSE 180 MG/DL (70-105); MAGNESIUM 1.8 MG/DL (1.6-2.4); PHOSPHORUS 3.4 MG/DL (2.3-4.7); POTASSIUM 3.3 MMOL/L (3.6-5.0); SODIUM 142 MMOL/L (135-145)
--- NOTE | 2020-07-03 04:40 | Pulmonary Progress Note ---
Subjective Time Seen by a Provider: 04:35 Subjective/Events-last exam Pt is sedated on vent. Sepsis Event Evaluation Height, Weight, BMI Height: 6'0.00" Weight: 360lbs. 0.0oz. 163.012204vc; 46.28 BMI Method: Exam Exam Vital Signs Date Time Temp Pulse Resp B/P (MAP) Pulse Ox O2 Delivery O2 Flow Rate FiO2 07/03/20 03:28 121/81 07/03/20 01:59 113/75 07/03/20 01:59 113/75 07/03/20 01:24 81 24 93 50 07/03/20 01:00 37.9 82 16 105/66 (79) 91 Mechanical Ventilator 50.00 07/03/20 00:00 38.1 96 17 115/75 (88) 93 Mechanical Ventilator 50.00 07/02/20 23:00 38.1 104 19 102/56 (71) 94 Mechanical Ventilator 50.00 07/02/20 22:52 90 Mechanical Ventilator 50.00 07/02/20 22:24 90 07/02/20 22:24 105/56 07/02/20 22:00 38.0 90 20 108/64 (79) 91 Mechanical Ventilator 45.00 07/02/20 21:58 94 24 92 45 07/02/20 21:00 38.1 84 14 103/60 (74) 89 Mechanical Ventilator 45.00 07/02/20 20:15 91 Mechanical Ventilator 45 07/02/20 20:11 38.1 97 19 103/59 (74) 90 Mechanical Ventilator 45.00 07/02/20 20:00 38.1 86 18 103/59 (74) 88 Mechanical Ventilator 45.00 07/02/20 19:00 38.0 95 19 105/58 (74) 92 Mechanical Ventilator 45.00 07/02/20 18:28 95 28 92 45 07/02/20 18:00 82 99/63 07/02/20 18:00 37.8 81 18 98/54 (69) 92 Mechanical Ventilator 45.00 07/02/20 17:47 82 99/63 07/02/20 17:00 37.7 82 16 99/63 (75) 92 Mechanical Ventilator 45.00 07/02/20 16:00 36.3 80 19 99/63 (75) 95 Mechanical Ventilator 45.00 07/02/20 15:09 Mechanical Ventilator 45.00 07/02/20 15:05 85 28 101/57 07/02/20 15:04 85 101/57 07/02/20 15:00 35.4 82 19 106/61 (76) 93 Mechanical Ventilator 30.00 07/02/20 14:01 85 28 91 35 07/02/20 14:00 35.2 89 19 97/57 (70) 90 Mechanical Ventilator 30.00 07/02/20 13:58 Mechanical Ventilator 35.00 07/02/20 13:37 80 102/59 07/02/20 13:00 36.6 83 19 109/67 (81) 92 Mechanical Ventilator 30.00 07/02/20 13:00 80 07/02/20 12:00 35.9 90 18 102/59 (73) 90 Mechanical Ventilator 30.00 07/02/20 11:30 90 119/70 07/02/20 11:00 36.2 90 13 119/70 (86) 93 Mechanical Ventilator 30.00 07/02/20 10:35 Mechanical Ventilator 30.00 07/02/20 10:30 95 21 94 35 07/02/20 10:00 36.1 88 16 129/92 (104) 94 Mechanical Ventilator 35.00 07/02/20 09:00 36.5 80 19 110/73 (85) 92 Mechanical Ventilator 35.00 07/02/20 08:00 36.5 85 20 110/73 (85) 95 Mechanical Ventilator 35.00 07/02/20 08:00 95 Mechanical Ventilator 35 07/02/20 07:58 92 109/77 07/02/20 07:23 Mechanical Ventilator 35.00 07/02/20 07:18 92 28 97 40 07/02/20 07:00 36.9 90 21 119/90 (100) 96 Mechanical Ventilator 40.00 07/02/20 07:00 93 07/02/20 06:58 108/62 07/02/20 06:58 84 21 126/81 07/02/20 06:00 36.9 87 18 117/74 (88) 93 Mechanical Ventilator 40.00 07/02/20 05:04 126/81 07/02/20 05:00 36.8 96 19 127/82 (97) 94 Mechanical Ventilator 40.00 I & O 07/03/20 07:00 Intake Total 4032.5 ml Output Total 2500 ml Balance 1532.5 ml Height & Weight Height: 6'0.00" Weight: 360lbs. 0.0oz. 163.317153de; 46.28 BMI Method: General Appearance: Anxious, Moderate Distress, Obese HEENT: PERRL/EOMI, Pharynx Normal Neck: Full Range of Motion, Supple Respiratory: Accessory Muscle Use, Crackles, Decreased Breath Sounds Cardiovascular: Regular Rate, Rhythm Capillary Refill: Less Than 3 Seconds Gastrointestinal: normal bowel sounds, non tender, soft Extremity: Normal Capillary Refill, Normal Inspection Neurologic/Psychiatric: Alert Skin: Normal Color Lymphatic: No Adenopathy Results Lab Laboratory Tests 07/02/20 02:20 07/03/20 01:50 Assessment/Plan Assessment/Plan COVID with pneumonia and acute respiratory failure -Pt was intubated 06/10 -EICU managed pt through the night -Vent 400/20/10-- 40% -Precedex 1.5, propofol 15, Fentanyl 400, and Versed 10mg, - TF -Lasix -scheduled 40 daily -S/p Decadron , CVP - Proning - Resume today -callejas cultures pending -Pt does not qualify for Remdesivir Pneumonia -- Now afebrial -Merrem and Vanco -Eraxis Hypertriglyceridemia -improving HTN and sinus tachycardia -Lopressor 25mg BID hypokalemia -Replace DM s/p Acute DKA Levemier -SSI -10 units of Levemir -Hold home PO diabetic meds Leukocytosis - currently on Zosyn -Continue to monitor -Recheck PCT Morbid obesity DVT/GI ppx -Theraputic dose ortega Elias JASON M DO Jul 03, 2020 04:40
[2020-07-03 04:54] LABS: TRIGLYCERIDES 503 MG/DL (<150)
[2020-07-03] MEDS: LACTATED RINGERS 1,000 ML IV SCH (05:59)
[2020-07-03] MEDS: POTASSIUM CL 10MEQ/50ML IVPB 50 ML IV SCH ×6 (06:00→08:35)
[2020-07-03] MEDS: VANCOMYCIN INJECTION 2,250 MG in NS IV 500 ML 500 ML IV SCH ×3 (06:00→23:38)
[2020-07-03] MEDS: MEROPENEM 500 MG in WATER (STERILE) FOR INJECTION 10 ML IV SCH ×4 (06:00→23:38)
[2020-07-03] MEDS: KCL 20 MEQ TAB (K-DUR) PO SCH (06:06)
[2020-07-03] MEDS: MAGNESIUM 1 GM/100 ML IVPB 100 ML IV SCH (06:06)
[2020-07-03 06:35] VITALS: BP 121/69
[2020-07-03 07:02] LABS: CLARITY,URINE TURBID; COLOR,URINE YELLOW; GLUCOSE, URINE (UA) NEGATIVE (NEGATIVE); KETONES,URINE NEGATIVE (NEGATIVE); LEUKOCYTE ESTERASE ,URINE 2+ (NEGATIVE); NITRITE,URINE NEGATIVE (NEGATIVE); PROTEIN,URINE 1+ (NEGATIVE)
[2020-07-03 07:30] LABS: BILIRUBIN,URINE 1+ (NEGATIVE); RBC,URINE 25-50 /HPF
[2020-07-03 07:31] LABS: AMORPHOUS SEDIMENT,UR LARGE AMOR URATES /LPF; BACTERIA,URINE MODERATE /HPF; WBC,URINE 50-100 /HPF
--- NOTE | 2020-07-03 07:35 | Diagnostic Imaging Report ---
Indication: Ventilator support and COVID positive. Time of exam: 1:40 AM Correlation is made with prior chest one day earlier. ET tube has tip above the leidy. Right IJ line has tip overlying SVC. There is a right upper extremity PICC line with tip overlying SVC. Bilateral infiltrates persist. These may be increased in the right base since yesterday. Left lung is stable. No effusion or pneumothorax. Impression: Increasing right basilar infiltrates when compared to exam one day earlier. Dictated by: Dictated on workstation # [id number]
--- NOTE | 2020-07-03 08:11 | Physical Therapy Progress Note ---
Therapy Progress Note Patient currently sedated and intubated. PT will continue to monitor patient status. ROSENDA ZHONG PT Jul 03, 2020 08:10
[2020-07-03] MEDS: DOCOSANOL 10 % CREAM (ABREVA) 2 GM TP SCH ×5 (08:34→20:21)
[2020-07-03] MEDS: METOCLOPRAMIDE INJ 10 MG/2 ML (REGLAN) IVP SCH ×2 (08:35→17:09)
[2020-07-03] MEDS: FUROSEMIDE 40 MG/4 ML INJ (LASIX) IVP SCH (08:35)
[2020-07-03] MEDS: PANTOPRAZOLE 40 MG (PROTONIX) VIAL IV SCH (08:35)
[2020-07-03] MEDS: meTOprolol TARTRATE 25 MG (LOPRESSOR) TABLET PO SCH ×2 (08:36→20:20)
[2020-07-03] MEDS: SPIRONOLACTONE 25 MG (ALDACTONE) TAB PO SCH (08:36)
[2020-07-03] MEDS: ANIDULAFUNGIN INJECTION 100 MG in NS (IVPB) 100 ML IV SCH (08:36)
[2020-07-03] MEDS: risperiDONE 1 MG (RisperDAL) TAB PO SCH ×2 (08:36→20:20)
[2020-07-03] MEDS: LACTULOSE SYRUP 10GM/15ML (ENULOSE) 30ML UDC PO SCH ×2 (08:36→20:19)
[2020-07-03] MEDS: VALACYCLOVIR 500 MG TAB (VALTREX) PO SCH (08:36)
[2020-07-03] MEDS: DOCUSATE SODIUM 100 MG (COLACE) CAP PO SCH ×2 (08:36→20:19)
[2020-07-03] MEDS: ARTIFICIAL TEARS OINT (LACRI-LUBE) 3.5 GM TUBE OU SCH ×3 (08:37→20:21)
[2020-07-03] MEDS: ENOXAPARIN 300 MG/3 ML (LOVENOX) MULTI-DOSE VIAL SQ SCH ×2 (10:29→23:38)
[2020-07-03 10:36] VITALS: BP 111/72
--- NOTE | 2020-07-03 11:00 | NUR ---
PT'S MOTHER SULMA UPDATED ON PT'S CONDITION
[2020-07-03 14:38] VITALS: BP 99/69
[2020-07-03] MEDS ORDERED: ZINC OXIDE 16% OINT (BUTT PASTE) 57 GM TUBE TOP PRN (14:45)
--- NOTE | 2020-07-03 15:52 | NUR ---
Note pt currently receiving Pulmocare via 180ml bolus feeds q4h with 30ml free water flushes before/after each bolus. Recommend continue to increase TF by 30ml q8h toward goal of 240ml bolus feeds q4h. Will continue to follow and reassess as pt needs, intake, and status change. Carl Trinh, MS RD LD [phone] cell
[2020-07-03 18:46] VITALS: BP 105/71
[2020-07-03 22:20] VITALS: BP 109/69
[2020-07-04] VITALS (7 sets, daily range): BP systolic 109–118; BP diastolic 72–83
[2020-07-04] MEDS: DexMEDEtomidine 250 ML DRIP 250 ML IV SCH ×6 (01:45→20:19)
[2020-07-04] MEDS: RT-ALBUTEROL INHALER HFA (VENTOLIN HFA) 18 GM IH SCH ×6 (02:10→23:04)
[2020-07-04] MEDS: PROPOFOL DRIP (ICU) 100 ML IV SCH ×5 (02:50→20:18)
[2020-07-04] MEDS: FENTANYL IV SCH ×4 (02:50→22:18)
[2020-07-04] MEDS: NS IV SCH ×4 (02:50→22:18)
[2020-07-04 03:46] LABS: ABG BASE EXCESS -7.8 MMOL/L (-2.5-2.5); ABG PCO2 22 MMHG (35-45); ABG PH 7.45 (7.37-7.43); ABG PO2 84 MMHG (79-93); ABG TCO2 16.2 MMOL/L (21.0-31.0)
[2020-07-04 03:47] LABS: ABG OXYGEN SATURATION 97 % (94-100)
[2020-07-04 03:49] LABS: ALLENS TEST POSITIVE; INSPIRED O2 50; PATIENT TEMP 36.3; VENTILATOR YES
--- NOTE | 2020-07-04 04:20 | Pulmonary Progress Note ---
Subjective Time Seen by a Provider: 04:14 Sepsis Event Evaluation Height, Weight, BMI Height: 6'0.00" Weight: 360lbs. 0.0oz. 163.009781zb; 46.28 BMI Method: Exam Exam Vital Signs Date Time Temp Pulse Resp B/P (MAP) Pulse Ox O2 Delivery O2 Flow Rate FiO2 07/04/20 03:00 36.6 91 21 131/93 (106) 95 Mechanical Ventilator 65.00 07/04/20 02:50 131/87 07/04/20 02:11 84 28 97 50 07/04/20 02:00 37.0 95 17 126/92 (103) 95 Mechanical Ventilator 65.00 07/04/20 01:45 Mechanical Ventilator 65.00 07/04/20 01:45 87 109/72 07/04/20 01:00 37.2 79 23 105/66 (79) 92 Mechanical Ventilator 50.00 07/04/20 00:43 79 07/04/20 00:00 37.2 80 23 109/74 (86) 92 Mechanical Ventilator 50.00 07/03/20 23:00 37.4 80 21 106/69 (81) 92 Mechanical Ventilator 50.00 07/03/20 22:20 80 23 92 50 07/03/20 22:00 37.4 79 21 106/72 (83) 92 Mechanical Ventilator 50.00 07/03/20 21:00 37.5 80 23 107/74 (85) 93 Mechanical Ventilator 50.00 07/03/20 20:23 81 20 108/73 07/03/20 20:20 81 108/73 07/03/20 20:00 37.5 80 24 106/70 (82) 89 Mechanical Ventilator 50.00 07/03/20 20:00 94 Mechanical Ventilator 50 07/03/20 19:00 37.1 80 23 104/72 (83) 88 Mechanical Ventilator 50.00 07/03/20 18:46 79 22 90 50 07/03/20 18:00 37.2 79 21 106/69 (81) 90 Mechanical Ventilator 50.00 07/03/20 17:10 79 106/71 07/03/20 17:00 79 26 102/71 (81) 92 Mechanical Ventilator 50.00 07/03/20 16:00 79 22 103/69 (80) 93 Mechanical Ventilator 50.00 07/03/20 16:00 37.2 07/03/20 15:30 79 104/69 07/03/20 15:00 102/71 (81) 93 Mechanical Ventilator 50.00 07/03/20 14:38 79 23 94 50 07/03/20 14:12 80 110/76 07/03/20 14:00 79 101/68 (79) 95 Mechanical Ventilator 50.00 07/03/20 13:00 80 48 106/73 (84) 95 Mechanical Ventilator 50.00 07/03/20 12:35 80 07/03/20 12:00 80 110/76 (87) 95 Mechanical Ventilator 50.00 07/03/20 11:00 84 19 112/75 (87) 95 Mechanical Ventilator 50.00 07/03/20 10:41 86 26 111/72 07/03/20 10:36 86 26 94 50 07/03/20 10:14 92 113/77 07/03/20 10:00 37.6 87 18 113/76 (88) 94 Mechanical Ventilator 50.00 07/03/20 09:13 92 113/77 07/03/20 09:00 37.5 81 19 113/77 (89) 87 Mechanical Ventilator 50.00 07/03/20 08:35 93 Mechanical Ventilator 50 07/03/20 08:00 37.6 84 18 121/84 (96) 95 Mechanical Ventilator 50.00 07/03/20 07:00 37.6 98 20 117/77 (90) 94 Mechanical Ventilator 50.00 07/03/20 06:43 107 07/03/20 06:42 123/69 07/03/20 06:35 115 26 92 50 07/03/20 06:00 37.5 105 22 127/88 (101) 93 Mechanical Ventilator 50.00 07/03/20 05:00 37.6 79 20 117/73 (88) 94 Mechanical Ventilator 50.00 I & O 07/04/20 07:00 Intake Total 570 ml Output Total 3350 ml Balance -2780 ml Height & Weight Height: 6'0.00" Weight: 360lbs. 0.0oz. 163.837765cp; 46.28 BMI Method: General Appearance: Anxious, Moderate Distress, Obese HEENT: PERRL/EOMI, Pharynx Normal Neck: Full Range of Motion, Supple Respiratory: Accessory Muscle Use, Crackles, Decreased Breath Sounds Cardiovascular: Regular Rate, Rhythm Capillary Refill: Less Than 3 Seconds Gastrointestinal: normal bowel sounds, non tender, soft Extremity: Normal Capillary Refill, Normal Inspection Neurologic/Psychiatric: Alert Skin: Normal Color Lymphatic: No Adenopathy Results Lab Laboratory Tests 07/03/20 01:50 Assessment/Plan Assessment/Plan COVID with pneumonia and acute respiratory failure -Pt was intubated 06/10 -EICU managed pt through the night -Vent 400/20/10-- 40% -Precedex 1.5, propofol 15, Fentanyl 400, and Versed 10mg, - TF -Lasix -scheduled 40 daily -S/p Decadron , CVP - Proning - -callejas cultures pending -Pt does not qualify for Remdesivir Metabolic acidosis -Check [place] Pneumonia -- Now afebrial -Merrem and Vanco -Eraxis Hypertriglyceridemia -improving HTN and sinus tachycardia -Lopressor 25mg BID hypokalemia -Replace DM s/p Acute DKA Levemier -SSI -10 units of Levemir -Hold home PO diabetic meds Leukocytosis - currently on Zosyn -Continue to monitor -Recheck PCT Morbid obesity DVT/GI ppx -Theraputic dose Lovenox ortega JASON M DO Jul 04, 2020 04:20
[2020-07-04 04:21] LABS: BASOPHILS % (AUTO) 1 % (0-10); EOSINOPHILS # (AUTO) 0.5 10^3/uL (0.0-0.3); EOSINOPHILS % (AUTO) 7 % (0-10); HEMATOCRIT 30 % (40-54); HEMOGLOBIN 9.5 g/dL (13.3-17.7); LYMPHOCYTES # (AUTO) 1.6 10^3/uL (1.0-4.0); LYMPHOCYTES % (AUTO) 22 % (12-44); MEAN CORPUSCULAR HEMOGLOBIN 29 pg (25-34); MEAN CORPUSCULAR HGB CONC 32 g/dL (32-36); MEAN CORPUSCULAR VOLUME 89 fL (80-99); MEAN PLATELET VOLUME 9.5 fL (9.0-12.2); MONOCYTES # (AUTO) 0.9 10^3/uL (0.0-1.0); MONOCYTES % (AUTO) 12 % (0-12); NEUTROPHILS # (AUTO) 4.3 10^3/uL (1.8-7.8); NEUTROPHILS % (AUTO) 58 % (42-75); PLATELET COUNT 288 10^3/uL (130-400); WHITE BLOOD COUNT 7.4 10^3/uL (4.3-11.0)
[2020-07-04 04:35] LABS: CHLORIDE 104 MMOL/L (98-107); POTASSIUM 3.4 MMOL/L (3.6-5.0); SODIUM 141 MMOL/L (135-145)
[2020-07-04 04:36] LABS: CALCIUM 7.9 MG/DL (8.5-10.1); GLUCOSE 177 MG/DL (70-105)
[2020-07-04 04:38] LABS: CARBON DIOXIDE 26 MMOL/L (21-32)
[2020-07-04 04:40] LABS: CREATININE SERUM 0.54 MG/DL (0.60-1.30); GFR ESTIMATED > 60
[2020-07-04 04:41] LABS: BUN/CREATININE RATIO 7
[2020-07-04 04:43] LABS: MAGNESIUM 1.7 MG/DL (1.6-2.4)
[2020-07-04] MEDS: POTASSIUM CL 10MEQ/50ML IVPB 50 ML IV SCH ×3 (05:12→06:51)
[2020-07-04] MEDS: KCL 20 MEQ TAB (K-DUR) PO SCH (05:12)
[2020-07-04] MEDS: MAGNESIUM 1 GM/100 ML IVPB 100 ML IV SCH ×3 (05:12→06:51)
[2020-07-04] MEDS: inSUlin ASPART (NovoLOG) 1 UNIT/0.01 ML (CHARGE PER UNIT) SC SCH ×4 (05:13→23:19)
[2020-07-04] MEDS: LACTATED RINGERS 1,000 ML IV SCH ×2 (05:31→21:40)
[2020-07-04] MEDS: MEROPENEM 500 MG in WATER (STERILE) FOR INJECTION 10 ML IV SCH ×4 (05:32→22:06)
[2020-07-04] MEDS: DOCOSANOL 10 % CREAM (ABREVA) 2 GM TP SCH ×5 (05:33→20:16)
[2020-07-04] MEDS: VANCOMYCIN INJECTION 2,250 MG in NS IV 500 ML 500 ML IV SCH ×2 (05:33→20:15)
[2020-07-04] MEDS: MIDAZOLAM DRIP PRE-MIX 100 ML IV SCH ×3 (05:33→23:40)
[2020-07-04] MEDS ORDERED: POTASSIUM CL 10MEQ/50ML IVPB 50 ML IV SCH (06:00)
[2020-07-04] MEDS ORDERED: KCL 20 MEQ TAB (K-DUR) PO SCH (06:00)
[2020-07-04] MEDS ORDERED: MAGNESIUM 1 GM/100 ML IVPB 100 ML IV SCH (06:00)
--- NOTE | 2020-07-04 07:16 | Diagnostic Imaging Report ---
Reason for examination: Ventilator, COVID positive. Upright AP portable chest was obtained and compared to yesterday. ET tube tip is at the level of the clavicles. Right IJ central line projects to the mid to upper SVC. Bilateral airspace infiltrates left greater than right, slightly improved on the right side today. Unchanged on the left. No cavitary changes or pneumothorax. Impression: 1. Left greater than right pulmonary infiltrates consistent with pneumonia, slightly improved on the right side today. Dictated by: Dictated on workstation # [id number]
[2020-07-04] MEDS: meTOprolol TARTRATE 25 MG (LOPRESSOR) TABLET PO SCH ×2 (08:14→20:15)
[2020-07-04] MEDS: PANTOPRAZOLE 40 MG (PROTONIX) VIAL IV SCH (08:14)
[2020-07-04] MEDS: FUROSEMIDE 40 MG/4 ML INJ (LASIX) IVP SCH (08:14)
[2020-07-04] MEDS: ANIDULAFUNGIN INJECTION 100 MG in NS (IVPB) 100 ML IV SCH (08:15)
[2020-07-04] MEDS: DOCUSATE SODIUM 100 MG (COLACE) CAP PO SCH ×2 (08:15→20:15)
[2020-07-04] MEDS: ARTIFICIAL TEARS OINT (LACRI-LUBE) 3.5 GM TUBE OU SCH ×3 (08:15→20:15)
[2020-07-04] MEDS: SPIRONOLACTONE 25 MG (ALDACTONE) TAB PO SCH (08:15)
[2020-07-04] MEDS: LACTULOSE SYRUP 10GM/15ML (ENULOSE) 30ML UDC PO SCH ×2 (08:15→20:15)
[2020-07-04] MEDS: risperiDONE 1 MG (RisperDAL) TAB PO SCH ×2 (08:15→20:15)
[2020-07-04] MEDS: METOCLOPRAMIDE INJ 10 MG/2 ML (REGLAN) IVP SCH ×2 (08:15→17:00)
[2020-07-04] MEDS: ENOXAPARIN 300 MG/3 ML (LOVENOX) MULTI-DOSE VIAL SQ SCH ×2 (10:35→23:32)
--- NOTE | 2020-07-04 10:58 | Physical Therapy Progress Note ---
Therapy Progress Note Non skilled PROM B U/LE in available planes. JAS TEMPLE PT Jul 04, 2020 10:58
--- NOTE | 2020-07-04 12:54 | NUR ---
UPDATE GIVEN ON PT'S CONDITION, SPOKE WITH BENNY JEREZ
--- NOTE | 2020-07-04 13:42 | NUR ---
Note pt currently receiving Pulmocare via 200ml bolus feeds q4h with 30ml free water flushes before/after each bolus. Note pt has restarted proning. Would recommend continue to increase TF by 30ml q8h toward goal of 480ml (2 cans of formula) bolus feeds q4h, while pt is supine. Will continue to follow and reassess as pt needs, intake, and status change. Carl Trinh, RD LD [phone] cell
[2020-07-04] MEDS ORDERED: TROUGH ORDER-PHARMACY XX ONE (14:00)
--- NOTE | 2020-07-04 14:59 | NUR ---
VANCOMYCIN DOSING TROUGH LEVEL 23.8 - DECREASE TO VANC 2250 MG Q12H CHECK LEVEL 2/3 0600 HOLD DOSE AND CONTACT PHARMACY IF LEVEL IS GREATER THAN 20 Addendum: 07/04/20 at 1504 by TOMÁS CHERY [facility] CORRECT DATE FOR TROUGH 2/4
[2020-07-05] MEDS: DexMEDEtomidine 250 ML DRIP 250 ML IV SCH ×6 (00:29→21:36)
[2020-07-05] MEDS: RT-ALBUTEROL INHALER HFA (VENTOLIN HFA) 18 GM IH SCH ×6 (01:48→22:27)
[2020-07-05 01:49] VITALS: BP 117/92
[2020-07-05] MEDS: PROPOFOL DRIP (ICU) 100 ML IV SCH ×6 (02:14→17:29)
[2020-07-05 03:06] LABS: ABG BASE EXCESS 6.2 MMOL/L (-2.5-2.5); ABG OXYGEN SATURATION 97 % (94-100); ABG PCO2 48 MMHG (35-45); ABG PH 7.42 (7.37-7.43); ABG PO2 91 MMHG (79-93); ABG TCO2 32.2 MMOL/L (21.0-31.0)
[2020-07-05 03:07] LABS: ALLENS TEST NEGATIVE; INSPIRED O2 50; PATIENT TEMP 36.6; VENTILATOR YES
[2020-07-05 03:08] LABS: BASOPHILS # (AUTO) 0.1 10^3/uL (0.0-0.1); BASOPHILS % (AUTO) 1 % (0-10); EOSINOPHILS # (AUTO) 0.5 10^3/uL (0.0-0.3); EOSINOPHILS % (AUTO) 6 % (0-10); HEMATOCRIT 29 % (40-54); HEMOGLOBIN 9.1 g/dL (13.3-17.7); LYMPHOCYTES # (AUTO) 1.3 10^3/uL (1.0-4.0); LYMPHOCYTES % (AUTO) 16 % (12-44); MEAN CORPUSCULAR HEMOGLOBIN 28 pg (25-34); MEAN CORPUSCULAR HGB CONC 32 g/dL (32-36); MEAN CORPUSCULAR VOLUME 88 fL (80-99); MEAN PLATELET VOLUME 9.3 fL (9.0-12.2); MONOCYTES # (AUTO) 0.9 10^3/uL (0.0-1.0); MONOCYTES % (AUTO) 11 % (0-12); NEUTROPHILS # (AUTO) 5.4 10^3/uL (1.8-7.8); NEUTROPHILS % (AUTO) 66 % (42-75); PLATELET COUNT 290 10^3/uL (130-400); WHITE BLOOD COUNT 8.2 10^3/uL (4.3-11.0)
[2020-07-05 03:16] LABS: CHLORIDE 103 MMOL/L (98-107); POTASSIUM 3.8 MMOL/L (3.6-5.0); SODIUM 141 MMOL/L (135-145)
[2020-07-05 03:18] LABS: GLUCOSE 181 MG/DL (70-105); TRIGLYCERIDES 688 MG/DL (<150)
[2020-07-05 03:19] LABS: CARBON DIOXIDE 26 MMOL/L (21-32)
[2020-07-05 03:22] LABS: BUN/CREATININE RATIO 10; CREATININE SERUM 0.51 MG/DL (0.60-1.30)
[2020-07-05 03:24] LABS: MAGNESIUM 1.8 MG/DL (1.6-2.4)
[2020-07-05 03:26] LABS: GFR ESTIMATED > 60
[2020-07-05] MEDS: inSUlin ASPART (NovoLOG) 1 UNIT/0.01 ML (CHARGE PER UNIT) SC SCH ×3 (03:31→18:09)
[2020-07-05] MEDS: POTASSIUM CL 10MEQ/50ML IVPB 50 ML IV SCH (03:32)
[2020-07-05] MEDS: MAGNESIUM 1 GM/100 ML IVPB 100 ML IV SCH (03:33)
[2020-07-05] MEDS: KCL 20 MEQ TAB (K-DUR) PO SCH (03:34)
--- NOTE | 2020-07-05 04:24 | Pulmonary Progress Note ---
Subjective Time Seen by a Provider: 04:18 Subjective/Events-last exam Sedated on vent. Sepsis Event Evaluation Height, Weight, BMI Height: 6'0.00" Weight: 360lbs. 0.0oz. 163.828613tl; 46.28 BMI Method: Focused Exam Lactate Level 07/04/20 06:00: Lactic Acid Level 0.95 Exam Exam Vital Signs Date Time Temp Pulse Resp B/P (MAP) Pulse Ox O2 Delivery O2 Flow Rate FiO2 07/05/20 03:00 36.6 80 16 114/65 (81) 93 Mechanical Ventilator 50.00 07/05/20 02:14 87 117/92 07/05/20 02:14 87 117/92 07/05/20 02:00 36.9 87 19 124/79 (94) 92 Mechanical Ventilator 50.00 07/05/20 01:49 87 22 92 50 07/05/20 01:00 78 07/05/20 01:00 36.9 78 19 116/79 (91) 96 Mechanical Ventilator 50.00 07/05/20 00:29 78 118/78 07/05/20 00:00 36.9 79 19 119/77 (91) 94 Mechanical Ventilator 50.00 07/04/20 23:40 81 22 118/75 07/04/20 23:04 81 22 96 50 07/04/20 23:00 36.7 82 20 118/75 (89) 95 Mechanical Ventilator 50.00 07/04/20 22:00 36.9 85 20 117/75 (89) 94 Mechanical Ventilator 50.00 07/04/20 21:00 36.7 79 46 115/81 (92) 90 Mechanical Ventilator 50.00 07/04/20 20:19 76 114/80 07/04/20 20:18 76 114/80 07/04/20 20:17 76 114/80 07/04/20 20:00 94 Mechanical Ventilator 50 07/04/20 20:00 36.5 76 25 112/74 (87) 93 Mechanical Ventilator 50.00 07/04/20 19:00 36.7 76 23 113/74 (87) 93 Mechanical Ventilator 50.00 07/04/20 19:00 76 07/04/20 18:21 76 22 94 50 07/04/20 18:00 36.3 76 20 114/75 (88) 94 Mechanical Ventilator 50.00 07/04/20 17:00 36.9 78 20 111/75 (87) 94 Mechanical Ventilator 50.00 07/04/20 16:51 79 115/75 07/04/20 16:00 36.8 82 20 116/80 (92) 93 Mechanical Ventilator 50.00 07/04/20 15:34 86 20 111/70 07/04/20 15:19 75 20 94 50 07/04/20 15:00 36.6 75 18 109/72 (84) 94 Mechanical Ventilator 50.00 07/04/20 14:56 36.5 75 94 07/04/20 14:08 75 114/75 07/04/20 14:00 36.7 75 20 114/75 (88) 94 Mechanical Ventilator 50.00 07/04/20 13:00 36.2 75 21 119/81 (94) 94 Mechanical Ventilator 50.00 07/04/20 13:00 75 07/04/20 12:50 76 120/78 07/04/20 12:00 36.5 76 20 123/84 (97) 93 Mechanical Ventilator 50.00 07/04/20 11:00 36.6 81 20 116/80 (92) 92 Mechanical Ventilator 50.00 07/04/20 10:40 82 24 92 50 07/04/20 10:00 36.9 82 18 118/76 (90) 92 Mechanical Ventilator 50.00 07/04/20 09:22 85 118/76 07/04/20 09:06 85 116/70 07/04/20 09:00 36.7 85 20 116/70 (85) 92 Mechanical Ventilator 50.00 07/04/20 08:15 93 Mechanical Ventilator 50 07/04/20 08:00 36.7 77 20 117/87 (97) 92 Mechanical Ventilator 50.00 07/04/20 07:23 75 07/04/20 07:17 75 24 94 50 07/04/20 07:00 35.9 75 19 120/79 (93) 94 Mechanical Ventilator 50.00 07/04/20 06:00 36.2 84 18 126/85 (99) 96 Mechanical Ventilator 50.00 07/04/20 05:33 75 20 07/04/20 05:32 75 111/70 07/04/20 05:00 35.9 75 19 111/70 (84) 96 Mechanical Ventilator 50.00 I & O 07/05/20 07:00 Intake Total 1540 ml Output Total 2450 ml Balance -910 ml Height & Weight Height: 6'0.00" Weight: 360lbs. 0.0oz. 163.359535ks; 46.28 BMI Method: General Appearance: Anxious, Obese HEENT: PERRL/EOMI, Pharynx Normal Neck: Full Range of Motion, Supple Respiratory: Accessory Muscle Use, Crackles, Decreased Breath Sounds Cardiovascular: Regular Rate, Rhythm Capillary Refill: Less Than 3 Seconds Gastrointestinal: normal bowel sounds, non tender, soft Extremity: Normal Capillary Refill, Normal Inspection Neurologic/Psychiatric: Alert Skin: Normal Color Lymphatic: No Adenopathy Results Lab Laboratory Tests 07/04/20 03:10 07/05/20 02:50 Assessment/Plan Assessment/Plan COVID with pneumonia and acute respiratory failure -Pt was intubated 06/10 -EICU managed pt through the night -Vent 400/20/10-- 50% -Precedex 1.5, propofol 30, Fentanyl 400, and Versed 10mg, -Decrease propofol to 15 and make max rate 20 - TF -Lasix -scheduled 40 daily -S/p Decadron , CVP - Proning - -callejas cultures pending -Pt does not qualify for Remdesivir Metabolic acidosis -Check [place] Pneumonia -- Now afebrial -Merrem and Vanco -Eraxis Hypertriglyceridemia -improving HTN and sinus tachycardia -Lopressor 25mg BID hypokalemia -Replace DM s/p Acute DKA Levemier -SSI -10 units of Levemir -Hold home PO diabetic meds Leukocytosis - currently on Zosyn -Continue to monitor -Recheck PCT Morbid obesity DVT/GI ppx -Theraputic dose Lovenox , pepcid NAT BRIGHT DO Jul 05, 2020 04:23
[2020-07-05] MEDS: MEROPENEM 500 MG in WATER (STERILE) FOR INJECTION 10 ML IV SCH ×4 (05:36→23:13)
[2020-07-05] MEDS: FENTANYL IV SCH ×3 (05:37→18:13)
[2020-07-05] MEDS: NS IV SCH ×3 (05:37→18:13)
[2020-07-05] MEDS: VANCOMYCIN INJECTION 2,250 MG in NS IV 500 ML 500 ML IV SCH ×2 (06:01→20:08)
[2020-07-05] MEDS: DOCOSANOL 10 % CREAM (ABREVA) 2 GM TP SCH ×5 (06:01→20:09)
--- NOTE | 2020-07-05 06:29 | Diagnostic Imaging Report ---
INDICATION: ET tube placement Portable chest shows repositioning of the ET tube. Tip is below the thoracic inlet and above the leidy and has been advanced slightly since the 07/05/20 study. There is no other change. IMPRESSION: The ET tube has been advanced slightly since the prior study. Dictated by: Dictated on workstation # [id number]
[2020-07-05 07:04] VITALS: BP 117/80
--- NOTE | 2020-07-05 08:06 | Diagnostic Imaging Report ---
INDICATION: Respiratory distress. Positive for COVID Portable chest shows normal heart size and vascularity. There are persistent bilateral infiltrates. There may be slightly more opacification in the right lower lobe compared to the 07/04/2020 study. There is no significant effusion evident. The ET tube, Dobbhoff tube and IJ line remain in place. IMPRESSION: Persistent bilateral infiltrates with slightly more opacification of the right lower lobe. Dictated by: Dictated on workstation # [id number]
[2020-07-05] MEDS: FUROSEMIDE 40 MG/4 ML INJ (LASIX) IVP SCH (08:51)
[2020-07-05] MEDS: SPIRONOLACTONE 25 MG (ALDACTONE) TAB PO SCH (08:51)
[2020-07-05] MEDS: METOCLOPRAMIDE INJ 10 MG/2 ML (REGLAN) IVP SCH ×2 (08:51→18:16)
[2020-07-05] MEDS: meTOprolol TARTRATE 25 MG (LOPRESSOR) TABLET PO SCH ×2 (08:51→20:08)
[2020-07-05] MEDS: PANTOPRAZOLE 40 MG (PROTONIX) VIAL IV SCH (08:51)
[2020-07-05] MEDS: risperiDONE 1 MG (RisperDAL) TAB PO SCH ×2 (08:51→20:08)
[2020-07-05] MEDS: LACTULOSE SYRUP 10GM/15ML (ENULOSE) 30ML UDC PO SCH ×2 (08:51→20:08)
[2020-07-05] MEDS: DOCUSATE SODIUM 100 MG (COLACE) CAP PO SCH ×2 (08:52→19:09)
[2020-07-05] MEDS: ARTIFICIAL TEARS OINT (LACRI-LUBE) 3.5 GM TUBE OU SCH ×3 (08:52→20:08)
[2020-07-05] MEDS: ANIDULAFUNGIN INJECTION 100 MG in NS (IVPB) 100 ML IV SCH (08:53)
--- NOTE | 2020-07-05 09:42 | Physical Therapy Progress Note ---
Therapy Progress Note Non skilled PROM B U/LE in available planes; assisted proning team to prone patient. JAS TEMPLE PT Jul 05, 2020 09:42
[2020-07-05] MEDS: MIDAZOLAM DRIP PRE-MIX 100 ML IV SCH ×2 (09:55→20:10)
[2020-07-05] MEDS: ENOXAPARIN 300 MG/3 ML (LOVENOX) MULTI-DOSE VIAL SQ SCH ×2 (09:59→23:13)
[2020-07-05 10:53] VITALS: BP 121/81
[2020-07-05 15:36] VITALS: BP 117/74
[2020-07-05 19:20] VITALS: BP 122/86
[2020-07-05 22:27] VITALS: BP 122/86
[2020-07-06] MEDS: inSUlin ASPART (NovoLOG) 1 UNIT/0.01 ML (CHARGE PER UNIT) SC SCH ×3 (00:41→11:07)
[2020-07-06] MEDS: NS IV SCH ×3 (00:45→13:30)
[2020-07-06] MEDS: FENTANYL IV SCH ×3 (00:45→13:30)
[2020-07-06 01:11] VITALS: BP 122/86
[2020-07-06] MEDS: RT-ALBUTEROL INHALER HFA (VENTOLIN HFA) 18 GM IH SCH ×4 (01:11→14:40)
[2020-07-06] MEDS: DexMEDEtomidine 250 ML DRIP 250 ML IV SCH ×4 (01:50→14:44)
[2020-07-06] MEDS: PROPOFOL DRIP (ICU) 100 ML IV SCH ×3 (01:51→08:37)
[2020-07-06] MEDS: LORazepam INJ 2 MG/ML (ATIVAN) VIAL IV PRN (03:15)
[2020-07-06] MEDS: LACTATED RINGERS 1,000 ML IV SCH (03:15)
[2020-07-06 03:20] LABS: BASOPHILS # (AUTO) 0.1 10^3/uL (0.0-0.1); BASOPHILS % (AUTO) 1 % (0-10); EOSINOPHILS # (AUTO) 0.5 10^3/uL (0.0-0.3); EOSINOPHILS % (AUTO) 8 % (0-10); HEMATOCRIT 29 % (40-54); HEMOGLOBIN 9.3 g/dL (13.3-17.7); LYMPHOCYTES # (AUTO) 1.3 10^3/uL (1.0-4.0); LYMPHOCYTES % (AUTO) 21 % (12-44); MEAN CORPUSCULAR HEMOGLOBIN 28 pg (25-34); MEAN CORPUSCULAR HGB CONC 32 g/dL (32-36); MEAN CORPUSCULAR VOLUME 87 fL (80-99); MEAN PLATELET VOLUME 9.3 fL (9.0-12.2); MONOCYTES # (AUTO) 0.7 10^3/uL (0.0-1.0); MONOCYTES % (AUTO) 12 % (0-12); NEUTROPHILS # (AUTO) 3.8 10^3/uL (1.8-7.8); NEUTROPHILS % (AUTO) 59 % (42-75); PLATELET COUNT 302 10^3/uL (130-400); WHITE BLOOD COUNT 6.4 10^3/uL (4.3-11.0)
[2020-07-06 03:21] LABS: ABG BASE EXCESS 6.4 MMOL/L (-2.5-2.5); ABG OXYGEN SATURATION 98 % (94-100); ABG PCO2 47 MMHG (35-45); ABG PH 7.43 (7.37-7.43); ABG PO2 135 MMHG (79-93); ABG TCO2 32.6 MMOL/L (21.0-31.0)
[2020-07-06 03:23] LABS: ALLENS TEST POSITIVE; PATIENT TEMP 35.6; VENTILATOR YES
[2020-07-06] MEDS: POTASSIUM CL 10MEQ/50ML IVPB 50 ML IV SCH ×7 (03:44→10:21)
[2020-07-06] MEDS: KCL 20 MEQ TAB (K-DUR) PO SCH (03:44)
[2020-07-06] MEDS: MAGNESIUM 1 GM/100 ML IVPB 100 ML IV SCH (03:44)
[2020-07-06 03:46] LABS: INSPIRED O2 45%
[2020-07-06 03:53] LABS: BUN/CREATININE RATIO 9; CALCIUM 8.1 MG/DL (8.5-10.1); CARBON DIOXIDE 26 MMOL/L (21-32); CHLORIDE 103 MMOL/L (98-107); CREATININE SERUM 0.47 MG/DL (0.60-1.30); GFR ESTIMATED > 60; GLUCOSE 162 MG/DL (70-105); MAGNESIUM 1.7 MG/DL (1.6-2.4); PHOSPHORUS 3.9 MG/DL (2.3-4.7); POTASSIUM 3.4 MMOL/L (3.6-5.0); SODIUM 140 MMOL/L (135-145)
--- NOTE | 2020-07-06 05:47 | Pulmonary Progress Note ---
Subjective Time Seen by a Provider: 05:46 Subjective/Events-last exam Pt is sedated on vent. Sepsis Event Evaluation Height, Weight, BMI Height: 6'0.00" Weight: 360lbs. 0.0oz. 163.549019wd; 46.28 BMI Method: Focused Exam Lactate Level 07/04/20 06:00: Lactic Acid Level 0.95 Exam Exam Vital Signs Date Time Temp Pulse Resp B/P (MAP) Pulse Ox O2 Delivery O2 Flow Rate FiO2 07/06/20 04:00 35.6 87 20 142/103 (116) 95 Mechanical Ventilator 45.00 07/06/20 03:00 35.6 90 20 172/93 (119) 99 Mechanical Ventilator 45.00 07/06/20 02:00 35.8 87 23 133/88 (103) 98 Mechanical Ventilator 45.00 07/06/20 01:54 Mechanical Ventilator 45.00 07/06/20 01:52 87 142/103 07/06/20 01:51 82 122/86 07/06/20 01:50 82 122/86 07/06/20 01:11 82 24 98 50 07/06/20 01:00 80 07/06/20 01:00 35.9 76 19 124/80 (95) 92 Mechanical Ventilator 50.00 07/06/20 00:00 36.0 75 20 120/82 (95) 92 Mechanical Ventilator 50.00 07/05/20 23:00 36.1 75 19 119/80 (93) 93 Mechanical Ventilator 50.00 07/05/20 22:27 74 15 96 50 07/05/20 22:00 36.1 75 18 120/82 (95) 92 Mechanical Ventilator 50.00 07/05/20 21:36 78 122/86 07/05/20 21:00 36.2 75 20 121/77 (92) 92 Mechanical Ventilator 50.00 07/05/20 20:10 78 20 122/86 07/05/20 20:00 36.0 78 19 120/80 (93) 93 Mechanical Ventilator 50.00 07/05/20 20:00 93 Mechanical Ventilator 50 07/05/20 19:20 78 20 92 50 07/05/20 19:00 80 07/05/20 19:00 36.1 77 20 121/76 (91) 93 Mechanical Ventilator 50.00 07/05/20 18:00 36.1 78 15 119/73 (88) 90 Mechanical Ventilator 50.00 07/05/20 17:29 75 121/81 07/05/20 17:28 75 121/81 07/05/20 17:04 76 120/77 07/05/20 17:00 36.1 75 20 120/77 (91) 92 Mechanical Ventilator 50.00 07/05/20 16:00 36.1 75 16 118/77 (91) 92 Mechanical Ventilator 50.00 07/05/20 15:36 75 20 93 50 07/05/20 15:00 36.1 75 23 114/77 (89) 92 Mechanical Ventilator 50.00 07/05/20 14:00 36.1 80 20 116/75 (89) 94 Mechanical Ventilator 50.00 07/05/20 13:32 85 116/74 07/05/20 13:00 36.3 75 18 117/88 (98) 94 Mechanical Ventilator 50.00 07/05/20 12:34 74 07/05/20 12:20 Mechanical Ventilator 50.00 07/05/20 12:00 36.4 75 21 120/71 (87) 93 Mechanical Ventilator 50.00 07/05/20 11:36 36.5 07/05/20 11:00 36.4 78 20 121/81 (94) 94 Mechanical Ventilator 50.00 07/05/20 10:53 78 22 94 50 07/05/20 10:00 36.8 85 20 121/81 (94) 92 Mechanical Ventilator 50.00 07/05/20 09:55 84 20 102/68 07/05/20 09:40 Mechanical Ventilator 50.00 07/05/20 09:00 36.4 86 28 114/84 (94) 89 Mechanical Ventilator 40.00 07/05/20 08:51 87 120/81 07/05/20 08:50 87 120/81 07/05/20 08:49 87 120/81 07/05/20 08:05 36.9 07/05/20 08:00 36.9 77 20 116/83 (94) 86 Mechanical Ventilator 40.00 07/05/20 08:00 94 Mechanical Ventilator 40 07/05/20 07:04 80 24 96 50 07/05/20 07:00 36.9 76 16 117/80 (92) 94 Mechanical Ventilator 40.00 07/05/20 06:48 75 07/05/20 06:00 36.9 74 20 110/76 (87) 93 Mechanical Ventilator 50.00 I & O 07/06/20 07:00 Intake Total 297 ml Output Total 3150 ml Balance -2853 ml Height & Weight Height: 6'0.00" Weight: 360lbs. 0.0oz. 163.275953ni; 46.28 BMI Method: General Appearance: Anxious, Obese HEENT: PERRL/EOMI, Pharynx Normal Neck: Full Range of Motion, Supple Respiratory: Accessory Muscle Use, Crackles, Decreased Breath Sounds Cardiovascular: Regular Rate, Rhythm Capillary Refill: Less Than 3 Seconds Gastrointestinal: normal bowel sounds, non tender, soft Extremity: Normal Capillary Refill, Normal Inspection Neurologic/Psychiatric: Alert Skin: Normal Color Lymphatic: No Adenopathy Results Lab Laboratory Tests 07/05/20 02:50 07/06/20 03:00 Assessment/Plan Assessment/Plan COVID with pneumonia and acute respiratory failure -Pt was intubated 06/10 -EICU managed pt through the night -Vent 400/21/03-- 45% -Precedex 1.5, propofol 30, Fentanyl 400, and Versed 10mg, -Decrease propofol to 15 and make max rate 20 - TF -Lasix -scheduled 40 daily -S/p Decadron , CVP - Proning - HOLD -Will consult [place] -callejas cultures pending -Pt does not qualify for Remdesivir Metabolic acidosis -Check [place] Pneumonia -- Now afebrial -S/p Merrem - Vanco -Eraxis Hypertriglyceridemia -improving HTN and sinus tachycardia -Lopressor 25mg BID hypokalemia -Replace DM s/p Acute DKA Levemier -SSI -10 units of Levemir -Hold home PO diabetic meds Leukocytosis - currently on Zosyn -Continue to monitor -Recheck PCT Morbid obesity DVT/GI ppx -Theraputic dose Marynoortega bernstein JASON M DO Jul 06, 2020 05:47
[2020-07-06] MEDS ORDERED: TROUGH ORDER-PHARMACY XX NR (06:00)
[2020-07-06] MEDS: MIDAZOLAM DRIP PRE-MIX 100 ML IV SCH ×2 (06:37→14:56)
[2020-07-06 07:09] VITALS: BP 129/88
--- NOTE | 2020-07-06 07:40 | Diagnostic Imaging Report ---
EXAM: CHEST 1 VIEW, AP/PA ONLY INDICATION: Respiratory failure. COMPARISON: Chest radiograph 07/05/2020. FINDINGS: ETT tip at the level of the clavicles. Right IJ CVC tip in SVC. Low lung volumes. Dense consolidation throughout both lungs. Heart size is obscured. IMPRESSION: 1. Dense consolidation throughout both lungs. 2. ETT tip at the level of the clavicles. Dictated by: Dictated on workstation # [id number]
--- NOTE | 2020-07-06 07:49 | NUR ---
VANCOMYCIN DOSING TROUGH LEVEL 15.4 - CONTINUE CURRENT DOSE OF VANC 2250 MG Q12H
[2020-07-06] MEDS: PANTOPRAZOLE 40 MG (PROTONIX) VIAL IV SCH (08:38)
[2020-07-06] MEDS: VANCOMYCIN INJECTION 2,250 MG in NS IV 500 ML 500 ML IV SCH (08:38)
[2020-07-06] MEDS: FUROSEMIDE 40 MG/4 ML INJ (LASIX) IVP SCH (08:38)
[2020-07-06] MEDS: METOCLOPRAMIDE INJ 10 MG/2 ML (REGLAN) IVP SCH (08:38)
[2020-07-06] MEDS: ANIDULAFUNGIN INJECTION 100 MG in NS (IVPB) 100 ML IV SCH (08:38)
[2020-07-06] MEDS: LACTULOSE SYRUP 10GM/15ML (ENULOSE) 30ML UDC PO SCH (08:39)
[2020-07-06] MEDS: meTOprolol TARTRATE 25 MG (LOPRESSOR) TABLET PO SCH (08:39)
[2020-07-06] MEDS: ARTIFICIAL TEARS OINT (LACRI-LUBE) 3.5 GM TUBE OU SCH ×2 (08:39→14:43)
[2020-07-06] MEDS: risperiDONE 1 MG (RisperDAL) TAB PO SCH (08:39)
[2020-07-06] MEDS: DOCOSANOL 10 % CREAM (ABREVA) 2 GM TP SCH ×3 (08:39→14:43)
[2020-07-06] MEDS: DOCUSATE SODIUM 100 MG (COLACE) CAP PO SCH (08:39)
[2020-07-06] MEDS: SPIRONOLACTONE 25 MG (ALDACTONE) TAB PO SCH (08:39)
[2020-07-06 09:41] VITALS: BP 127/93
--- NOTE | 2020-07-06 10:09 | NUR ---
CM/SS: Charlene (Ward) requested that a referral be sent over for review. Per Dr Monsivais's request. Referral packet sent.
[2020-07-06] MEDS: ENOXAPARIN 300 MG/3 ML (LOVENOX) MULTI-DOSE VIAL SQ SCH (10:20)
--- NOTE | 2020-07-06 10:46 | Physical Therapy Progress Note ---
Therapy Progress Note 0845: Non skilled PROM B U/LE in available planes in the supine position. JAS TEMPLE PT Jul 06, 2020 10:46
[2020-07-06] MEDS ORDERED: LABE5DIS IV (13:50)
[2020-07-06] MEDS ORDERED: METO-333 PO (13:50)
[2020-07-06] MEDS ORDERED: RT-ALBUINH INH (13:50)
[2020-07-06] MEDS ORDERED: ANID100V2 IV (13:50)
[2020-07-06] MEDS ORDERED: LORA2VIA3 IV (13:50)
[2020-07-06] MEDS ORDERED: PROP10VI IV (13:50)
[2020-07-06] MEDS ORDERED: PANT40VI IV (13:50)
[2020-07-06] MEDS ORDERED: METO5VIA3 IVP (13:50)
[2020-07-06] MEDS ORDERED: [UNRECOGNIZED DRUG - CODE] IV (13:50)
[2020-07-06] MEDS ORDERED: ACET200V4 INH (13:50)
[2020-07-06] MEDS ORDERED: SPIR25TA5 PO (13:50)
[2020-07-06] MEDS ORDERED: ALBU18HF2 IH ×2 (13:50)
[2020-07-06] MEDS ORDERED: LORA2VIA3 IVP (13:50)
[2020-07-06] MEDS ORDERED: INSU100V5 SQ (13:50)
[2020-07-06] MEDS ORDERED: ZINC28PA TOP (13:50)
[2020-07-06] MEDS ORDERED: FURO10VI IVP (13:50)
[2020-07-06] MEDS ORDERED: LACT20SO2 PO (13:50)
[2020-07-06] MEDS ORDERED: RING10003 IR (13:50)
[2020-07-06] MEDS ORDERED: RISP1TAB93 PO (13:50)
[2020-07-06] MEDS ORDERED: ACET650S15 PR (13:50)
[2020-07-06] MEDS ORDERED: Haloperidol Lactate IM (13:50)
[2020-07-06] MEDS ORDERED: [UNRECOGNIZED DRUG - CODE] IV (13:50)
[2020-07-06] MEDS ORDERED: Artificial Tears OU (13:50)
[2020-07-06] MEDS ORDERED: INSU100V16 SC (13:50)
[2020-07-06] MEDS ORDERED: DCS100C PO (13:50)
[2020-07-06] MEDS ORDERED: HYDR20VI7 IV (13:50)
[2020-07-06] MEDS ORDERED: ENOX300V SQ (13:50)
[2020-07-06] MEDS ORDERED: NF-DOCO10C TP (13:50)
[2020-07-06] MEDS ORDERED: IBUP-2473 PO (13:50)
[2020-07-06] MEDS ORDERED: DEXM400I IV (13:50)
[2020-07-06 14:40] VITALS: BP 116/77
[2020-07-06 14:56] VITALS: BP 118/88
--- NOTE | 2020-07-06 15:01 | NUR ---
Note pt currently receiving Pulmocare via 237ml (1 can) bolus feeds q4h with 30ml free water flushes before/after each bolus. Note proning regimen has stopped. Note pt is currently at goal for TF. Will continue to follow and reassess as pt needs, intake, and status change. Carl Trinh, MS RD LD [phone] cell
--- NOTE | 2020-07-06 15:15 | NUR ---
Report called to Yenny VALDES at [facility]. Pt bruce Molina updated on plans to transfer.
--- NOTE | 2020-07-06 16:54 | NUR ---
This Warehouse Record Clerk was present as pt was prepared to transfer to [place]. Offered quiet prayer of support for pt and staff.
== END 2020-07-06 16:45 | DRG 207 ==
LOC: EDUNIT# 00:18 → ER 00:19 → ICU 01:50
PROVIDERS: ADMIT Family Medicine; ATTEND Internal Medicine
PROC: XW13325 Transfusion of Convalescent Plasma (Nonautologous) into Peripheral Vein, Percutaneous Approach, New Technology Group 5 (ICD-10-PCS; 2020-06-08)
PROC: 5A09357 Assistance with Respiratory Ventilation, Less than 24 Consecutive Hours, Continuous Positive Airway Pressure (ICD-10-PCS; 2020-06-09)
PROC: 5A1955Z Respiratory Ventilation, Greater than 96 Consecutive Hours (ICD-10-PCS; principal; 2020-06-10)
PROC: 0BH17EZ Insertion of Endotracheal Airway into Trachea, Via Natural or Artificial Opening (ICD-10-PCS; 2020-06-10)
DX: U07.1 COVID-19 (principal); E11.10 Type 2 diabetes mellitus with ketoacidosis without coma; J12.82 Pneumonia due to coronavirus disease 2019; J80 Acute respiratory distress syndrome; Z68.43 Body mass index [BMI] 50.0-59.9, adult; E87.1 Hypo-osmolality and hyponatremia; E87.2 Acidosis; E66.01 Morbid (severe) obesity due to excess calories; Z66 Do not resuscitate; I10 Essential (primary) hypertension; E87.6 Hypokalemia; E83.39 Other disorders of phosphorus metabolism; E78.5 Hyperlipidemia, unspecified; E78.00 Pure hypercholesterolemia, unspecified; F32.9 Major depressive disorder, single episode, unspecified; E78.1 Pure hyperglyceridemia; B00.1 Herpesviral vesicular dermatitis; I87.2 Venous insufficiency (chronic) (peripheral); Z79.84 Long term (current) use of oral hypoglycemic drugs; Z73.0 Burn-out
CPT/HCPCS: 36415; 36569; 36600; 71045; 71275; 74018; 74019; 76937; 80048; 80053; 80076; 80202; 80306; 80329; 81000; 82010; 82150; 82805; 82962; 83605; 83690; 83735; 84100; 84145; 84478; 85007; 85025; 85027; 85379; 85610; 86141; 86900; 86901; 87040; 87070; 87077; 87081; 87088; 87106; 87205; 87804; 94002; 94003; 94640; 94660; 94799; 96361; 96374; 99291

== ENCOUNTER 2020-08-10 11:20 | Inpatient (IN) | payer MEDICARE, MEDICAID ==
[~2020-08-10] VITALS: Ht 182.9 cm; Wt 135.0 kg
[2020-08-10] MEDS: polyethylene glycoL POWDER 17 GM (MIRALAX) PACK PO SCH ×2 (09:00→21:00)
[2020-08-10] MEDS: SENNA W/DOCUSATE (SENOKOT S) TABLET PO SCH ×2 (09:00→21:00)
[2020-08-10] MEDS: DOCUSATE SODIUM 100 MG (COLACE) CAP PO SCH ×2 (09:00→21:00)
[2020-08-10 11:10] VITALS: BP 133/89
[~2020-08-10 11:20] MED LIST: ACET-2267 PO; ACET200V4 INH; ACET650S15 PR; ALBU18HF2 IH; ALBUTEROL; ALPRAZolam 0.25 MG (XANAX) TAB PO PRN; ANID100V2 IV; AZIT250T12 PO; AZITHROMYCIN; Artificial Tears OU; BISACODYL 10 MG SUPP (DULCOLAX) PR PRN; BREX0.5T PO; CALCIUM CARBONATE 500 MG (TUMS) TAB.CHEW PO PRN; CANA1TAB8 PO; DCS100C PO; DEXM400I IV; DOCUSATE SODIUM 100 MG (COLACE) CAP PO PRN; DULA0.75 SQ; DULO60CA59 PO; ENOX300V SQ; FLEET ENEMA ADULT 1 EA BTL PR PRN; FURO10VI IVP; GEMF600T88 PO; HYDR20VI7 IV; HYDR50TA6 PO; Haloperidol Lactate IM; IBUP-2473 PO; INSU100V16 SC; INSU100V5 SQ; LABE5DIS IV; LACT20SO2 PO; LACTULOSE SYRUP 10GM/15ML (ENULOSE) 30ML UDC PO PRN; LOPERAMIDE 2 MG (IMODIUM) TABLET PO PRN; LORA2VIA3 IV; LORA2VIA3 IVP; MELATONIN 3 MG TABLET PO PRN; METO-333 PO; METO50TA15 PO; METO5VIA3 IVP; MONT10TA32 PO; MULT-1136 PO; NF-DOCO10C TP; ONDANSETRON 4 MG (ZOFRAN) ORAL DISSOLVE TAB PO PRN; PANT40VI IV; PIOG30TA71 PO; PROP10VI IV; RING10003 IR; RISP1TAB93 PO; ROSU20TA32 PO; RT-ALBUINH INH; SPIR25TA5 PO; ZINC28PA TOP; [UNRECOGNIZED DRUG - CODE] IV; [UNRECOGNIZED DRUG - CODE] IV; diphenhydrAMINE 25 MG TAB (BENADRYL) PO PRN; guaiFENesin/CODEINE (ROBITUSSIN AC) 10ML UDC PO PRN
[2020-08-10] MEDS ORDERED: ACETAMINOPHEN 325 MG TABLET PO PRN (11:45)
--- NOTE | 2020-08-10 12:03 | PM&R Post Admission Assessment ---
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 Patient had presented to the [facility] ER on 06/08/20 after swab + 06/03/20 so he was admitted and placed on Vapotherm and then intubated 06/10/20. He failed extubation twice while at [facility] so he was moved to [place] on 07/06/20 which resulted in extubation and weaned off of O2. Patient has a severe coccyx wound and left knee wound from pressure. Patient has severe debility and requires a Ivan lift. Dr Santillan and Dr Clarke will be consulted for the wounds. BMI 40. Past Nbogeea-Rocyca-Mhdbbr Hx Past Med/Social Hx: Reviewed Nursing Past Med/Soc Hx, Reviewed and Corrections made Patient Social History Marrital Status: single Employed/Student: unemployed Alcohol Use: Denies Use Smoking Status: Never a Smoker 2nd Hand Smoke Exposure: No Recent Hopitalizations: No Immunizations Up To Date Tetanus Booster (TDap): Unknown Date of Influenza Vaccine: Mar 23, 2020 Seasonal Allergies Seasonal Allergies: No Past Medical History Cardiac: High Cholesterol, Hypertension Neurological: Developmental Disorder Endocrine: Diabetes, Insulin dep Psychosocial: Depression History of Blood Disorders: No Family History Other Conditions/Hx PM&R Allergy/Meds/Data Review Allergies Coded Allergies: No Known Drug Allergies (Unverified , 06/08/20) Home Medications Scheduled Ascorbic Acid (Vitamin C), 500 MG PO DAILY, (Reported) Cholecalciferol (Vitamin D3) (Vitamin D3), 125 MCG PO DAILY, (Reported) Clonidine HCl (Clonidine HCl), 0.1 MG PO BID, (Reported) Collagenase (Santyl), 1 APPLIC TP DAILY, (Reported) Diltiazem HCl (Diltiazem 24Hr Cd), 180 MG PO DAILY, (Reported) Duloxetine HCl (Duloxetine HCl), 30 MG PO 1800, (Reported) Duloxetine HCl (Duloxetine HCl), 60 MG PO DAILY, (Reported) Furosemide (Furosemide), 40 MG PO DAILY, (Reported) Gabapentin (Neurontin), 300 MG PO TID, (Reported) Insulin Glargine,Hum.rec.anlog (Lantus), 10 UNIT SQ HS, (Reported) Insulin Lispro (Humalog), 0-14 UNIT SQ ACHS, (Reported) Lactobacillus Acidophilus/Pect (Acidophilus-Pectin Capsule), 1 EACH PO BID, (Reported) Melatonin (Melatonin), 5 MG PO HS, (Reported) Metoprolol Tartrate (Metoprolol Tartrate), 50 MG PO BID, (Reported) Multivit,Ther Iron,Ca,FA & Min (Thera-M Caplet), 1 EACH PO DAILY, (Reported) Quetiapine Fumarate (Quetiapine Fumarate), 25 MG PO HS, (Reported) Sennosides (Senna), 8.6 MG PO BID, (Reported) Tamsulosin HCl (Flomax), 0.4 MG PO HS, (Reported) Scheduled PRN Acetaminophen (Tylenol), 650 MG PO Q6H PRN for PAIN-MILD (1-4) OR TEMPATURE, (Reported) Balsam [place] Oil (Venelex Ointment), 1 APPLIC TP BID PRN for SKIN I RRITATION, (Reported) Collagenase (Santyl), 1 APPLIC TP DAILY PRN for FOR SOILED DRESSING, (Reported) Ibuprofen (Ibuprofen), 400 MG PO Q6H PRN for PAIN-MILD (1-4), (Reported) Ipratropium/Albuterol Sulfate (Iprat-Albut 0.5-3(2.5) mg/3 ml), 3 ML IH Q2H PRN for SHORTNESS OF BREATH, (Reported) Discontinued Medications Acetaminophen (Acetaminophen), 650 MG WA Q4H PRN for PAIN-MILD (1-4) Discontinued Reason: Duplicate Order Acetylcysteine (Acetylcysteine), 0 ML INH RTQ6HR PRN for EXCESSIVE SECRETIONS Discontinued Reason: Duplicate Order Albuterol Sulfate (Proventil Hfa), 2 PUFF INH Q4H PRN for SHORTNESS OF BREATH Discontinued Reason: Duplicate Order Albuterol Sulfate (Ventolin Hfa), 0 GM IH RTQ4HR Discontinued Reason: Duplicate Order Albuterol Sulfate (Ventolin Hfa), 0 GM IH Q2HR PRN for SOA/WHEEZING Discontinued Reason: Duplicate Order Anidulafungin (Eraxis (Water Diluent)), 100 MG IV DAILY Discontinued Reason: Duplicate Order Dexmedetomidine in 0.9 % NaCl (Dexmedetomidin 400Mcg/100Ml-Ns), 400 MCG IV DAILY Discontinued Reason: Duplicate Order Docosanol (Abreva), 0 GM TP 5XD Discontinued Reason: Duplicate Order Docusate Sodium (Dok), 100 MG PO BID Discontinued Reason: Duplicate Order Enoxaparin Sodium (Lovenox), 150 MG SQ Q12H Discontinued Reason: Duplicate Order Fentanyl Citrate-0.9 % NaCl/Pf (Fentanyl 1,250 Mcg/50-0.9%NaCl), 2,500 MCG IV DAILY Discontinued Reason: Duplicate Order Furosemide (Furosemide), 40 MG IVP DAILY Discontinued Reason: Duplicate Order Hydralazine HCl (Hydralazine HCl), 10 MG IV Q4HR PRN for BLOOD PRESSURE Discontinued Reason: Duplicate Order Ibuprofen (Ibuprofen), 400 MG PO Q6H PRN for PAIN-MILD (1-4) Discontinued Reason: Duplicate Order Insulin Aspart (Novolog), 0 UNIT SC Q6HR Discontinued Reason: Duplicate Order Insulin Determir (Levemir), 10 UNIT SQ HS Discontinued Reason: Duplicate Order Labetalol HCl (Labetalol HCl), 20 MG IV Q6H PRN for BLOOD PRESSURE Discontinued Reason: Duplicate Order Lactulose (Lactulose), 10 GM PO BID Discontinued Reason: Duplicate Order Lorazepam (Lorazepam), 4 MG IVP Q4H PRN for AGITATION Discontinued Reason: Duplicate Order Lorazepam (Lorazepam), 2-4 MG IV Q2HR PRN for AGITATION Discontinued Reason: Duplicate Order Metoclopramide HCl (Metoclopramide HCl), 10 MG IVP BID WITH MEALS Discontinued Reason: Duplicate Order Metoprolol Tartrate (Metoprolol Tartrate), 50 MG PO BID Discontinued Reason: Duplicate Order Midazolam in NaCl,Iso-Osmot/Pf (Midazolam 100Mg/100Ml-0.8%NaCl), 100 MG IV DAILY Discontinued Reason: Duplicate Order Pantoprazole Sodium (Protonix IV), 40 MG IV DAILY Discontinued Reason: Duplicate Order Propofol (Propofol), 100 MG IV DAILY Discontinued Reason: Duplicate Order Ringers Solution,Lactated (Lactated Ringers), 1,000 ML IR DAILY Discontinued Reason: Duplicate Order Risperidone (Risperidone), 1 MG PO BID Discontinued Reason: Duplicate Order Spironolactone (Spironolactone), 25 MG PO DAILY Discontinued Reason: Duplicate Order Zinc Oxide (Boudreauxs), 0 GM TOP NEEDED PRN for DIAPER CHANGE Discontinued Reason: Duplicate Order [Artificial Tears], 0 GM OU TID Discontinued Reason: Duplicate Order [Haloperidol Lactate], 5 MG IM Q4H PRN for AGITATION Discontinued Reason: Duplicate Order Current Medications Current Medications Reviewed Review of Systems Constitutional: see HPI, malaise, weakness Respiratory: dyspnea on exertion Musculoskeletal: back pain, joint pain Skin: see HPI Psychiatric/Neurological: Anxiety, Depressed Physical Exam Physical Exam Vital Signs Capillary Refill : Height, Weight, BMI Height: 6'0.00" Weight: 360lbs. 0.0oz. [id number]; 46.28 BMI Method: General Appearance: No Apparent Distress, WD/WN, Chronically ill, Obese Eyes: Bilateral Eye Normal Inspection, Bilateral Eye PERRL HEENT: PERRL/EOMI, Normal ENT Inspection, Pharynx Normal Neck: Full Range of Motion, Normal Inspection, Non Tender, Supple, Carotid Bru it Respiratory: Chest Non Tender, Lungs Clear, Normal Breath Sounds, No Accessory Muscle Use, No Respiratory Distress, Decreased Breath Sounds Cardiovascular: Regular Rate, Rhythm, No Gallop, No JVD, No Murmur, Normal Peripheral Pulses Gastrointestinal: Normal Bowel Sounds, No Organomegaly, No Pulsatile Mass, Non Tender, Soft Back: Normal Inspection, No CVA Tenderness, No Vertebral Tenderness Extremity: Normal Capillary Refill, Normal Inspection, Normal Range of Motion, Non Tender, No Calf Tenderness, Pedal Edema Neurologic/Psychiatric: Alert, Oriented x3, Normal Mood/Affect, Motor Weakness (2/5 all extremities) Skin: Normal Color, Warm/Dry Lymphatic: No Adenopathy PM&R Medical Assessment & Plan REHAB/MEDICAL ASSESSMENT AND PLAN: REHAB IMPAIRMENT GROUP: COVID 19 critical illness myopathy ETIOLOGIC DIAGNOSIS: COVID 19 critical illness myopathy The comorbidities that impact the patients function and/or functional outcome by: increased BMI, developmental delay, DM, HTN, HLP, decubitus ulcers, hypoxia REHAB PLAN: The patient is being admitted to our comprehensive inpatient rehabilitation facility and can tolerate the intensity of service consisting of at least: 180 minutes of therapy a day, 5 out of 7 days a week Rehab treatment will consist of: PT OT will focus on regaining strength and ADL skills while supporting hypoxia needs while wound care manages complex pressure wounds The patient/family has a good understanding of our discharge process and will benefit from an interdisciplinary inpatient rehabilitation program. The patient has potential to make improvement and is in need of at least two of the following multidisciplinary therapies including but not limited to physical, occupational, speech, and prosthetics and orthotics. Additionally the patient will need services from respiratory, nutritional services, wound care, psychology, etc. (Customize this to each patient). Given the patients complex condition and risk of further medical complications, rehabilitation services cannot be safely or effectively provided at a lower level of care such as a shelter facility. BARRIERS TO DISCHARGE: Severe myopathy with hypoxia from COVID ESTIMATED LOS: 21 days DISPOSITION: Home RELEVANT CHANGES SINCE PREADMISSION SCREENING: I have compared the patients medical and functional status at the time of the preadmission screening and there are: no changes PROGNOSIS: Guarded REHABILITATION GOALS: 1. PT OT will focus on regaining strength and ADL skills while supporting hypoxia needs while wound care manages complex pressure wounds All the above goals were reviewed with the patient and he/she is in agreement. By signing this document, I acknowledge that I have personally performed a full physical examination on this patient within 24 hours of admission to this [facility] rehabilitation facility and have determined the patient to be able to tolerate the above course of treatment at an intensive level for a reasonable period of time. I will be completing a detailed individualized Plan of Care for this patient by day #4 of the patients stay based upon the Preadmission Screen, the Post-Admission Evaluation, and the therapy evaluations. Admission Dx/Comorbidities: (1) Myopathy ICD Codes: G72.9 - Myopathy, unspecified (2) Pneumonia due to 2019 novel coronavirus Status: Acute ICD Codes: U07.1 - COVID-19; J12.89 - Other viral pneumonia (3) Morbid obesity Status: Chronic ICD Codes: E66.01 - Morbid (severe) obesity due to excess calories (4) Hypoxia Status: Acute ICD Codes: R09.02 - Hypoxemia; J12.89 - Other viral pneumonia (5) T2DM (type 2 diabetes mellitus) Status: Acute ICD Codes: E11.9 - Type 2 diabetes mellitus without complications Assessment/Plan Assessment and Plan Assess & Plan/Chief Complaint Assessment:: Myopathy COVID-19 PNA 06/03/20 Hypoxia Morbid obesity HTN HLP Developmental delay/autism Decubitus ulcers coccyx and left knee Plan: Wound care IRF protocol Home meds Pain meds HEMANTH DODD DO Aug 10, 2020 12:02
[2020-08-10 12:37] LABS: BASOPHILS # (AUTO) 0.1 10^3/uL (0.0-0.1); BASOPHILS % (AUTO) 0 % (0-10); EOSINOPHILS # (AUTO) 0.2 10^3/uL (0.0-0.3); EOSINOPHILS % (AUTO) 1 % (0-10); HEMATOCRIT 34 % (40-54); LYMPHOCYTES # (AUTO) 3.2 10^3/uL (1.0-4.0); LYMPHOCYTES % (AUTO) 21 % (12-44); MEAN CORPUSCULAR HEMOGLOBIN 26 pg (25-34); MEAN CORPUSCULAR HGB CONC 32 g/dL (32-36); MEAN CORPUSCULAR VOLUME 81 fL (80-99); MEAN PLATELET VOLUME 8.6 fL (9.0-12.2); MONOCYTES # (AUTO) 1.3 10^3/uL (0.0-1.0); MONOCYTES % (AUTO) 8 % (0-12); NEUTROPHILS # (AUTO) 10.8 10^3/uL (1.8-7.8); NEUTROPHILS % (AUTO) 70 % (42-75); PLATELET COUNT 498 10^3/uL (130-400); WHITE BLOOD COUNT 15.5 10^3/uL (4.3-11.0)
[2020-08-10 12:50] LABS: ALBUMIN 3.7 GM/DL (3.2-4.5); CHLORIDE 101 MMOL/L (98-107); POTASSIUM 4.9 MMOL/L (3.6-5.0); SODIUM 135 MMOL/L (135-145)
[2020-08-10 12:51] LABS: CALCIUM 9.5 MG/DL (8.5-10.1)
[2020-08-10 12:52] LABS: GLUCOSE 131 MG/DL (70-105); TOTAL PROTEIN 7.1 GM/DL (6.4-8.2)
[2020-08-10 12:53] LABS: CARBON DIOXIDE 21 MMOL/L (21-32)
[2020-08-10 12:54] LABS: BILIRUBIN,TOTAL 0.4 MG/DL (0.1-1.0)
[2020-08-10 12:56] LABS: ALKALINE PHOSPHATASE 121 U/L (40-136); CREATININE SERUM 0.64 MG/DL (0.60-1.30); GFR ESTIMATED > 60
[2020-08-10 12:57] LABS: BUN/CREATININE RATIO 39
[2020-08-10 12:59] LABS: ALANINE AMINOTRANSFERASE 30 U/L (0-55)
--- NOTE | 2020-08-10 13:18 | Occupational Therapy Eval ---
OT Evaluation-General/PLF Medical Diagnosis Admission Date Aug 10, 2020 at 11:20 Medical Diagnosis: Debility post COVID and intubation Onset Date: Jun 08, 2020 Therapy Diagnosis Therapy Diagnosis: Decreased ADL status Height/Weight Height (Feet): 6 Height (Inches): 0.00 Weight (Pounds): 360 Weight (Ounces): 0.0 Precautions Precautions/Isolations: Standard Precautions, Pressure Ulcer Referral Physician: Yordan Referral Reason: Activity Tolerance, Self Care, Evaluation/Treatment, Strengthening/ROM Medical History Pertinent Medical History: DM, HTN Additional Medical History Autism, HTN, HLD, DM 2, depression, obesity Current History Pt dx with COVID 1/2, admitted to ER 06/08 with increasing SOB. Intubated here at [facility] 06/10 and transfer to [place]. Pt failed extubation 2x per notes. Specific dates not found in charts, however, pt expresses 5 1/2 weeks of intubation. Pressure wounds to coccyx region (severe), L knee (severe) and L cheek (facial). Pt TD with most ADLs at this time due to severe debility post extubation. Reviewed History: Yes Social History Home: Single Level Current Living Status: Other Family (mom and dad) Entry Into Home: Ramp Steps Into Home: 0 Steps Inside Home: 0 ADL-Prior Level of Function SCALE: Activities may be completed with or without assistive devices. 9-Lwmfgobhfb-wagvwkn completes the activity by him/herself with no assistance from a helper. 5-Set-up or Clean-up Assistance-helper sets up or cleans up; patient completes activity. [place] assists only prior to or following the activity. 4-Supervision or Touching Assistance-helper provides verbal cues and/or touching/steadying and/or contact guard assistance as patient completes activity. Assistance may be provided throughout the activity or intermittently. 3-Partial/Moderate Assistance-helper does LESS THAN HALF the effort. [place] lifts, holds or supports trunk or limbs, but provides less than half the effort. 2-Substantial/Maximal Assistance-helper does MORE THAN HALF the effort. [place] lifts or holds trunk or limbs and provides more than half the effort. 5-Pbunhexnv-hxfsnx does ALL the effort. Patient does none of the effort to complete the activity. Or, the assistance of 2 or more helpers is required for the patient to complete the activity. If activity was not attempted, code reason: 7-Patient Refused. 9-Not Applicable-not attempted and the patient did not perform the activity before the current illness, exacerbation or injury. 10-Not Attempted due to Environmental Limitations-(lack of equipment, weather restraints, etc.). 88-Not Attempted due to Medical Conditions or Safety Concerns. ADL PLOF Comments Pt was IND without use of AD, was living alone, responsible for driving/ cooking/ finances. Does not work. Upon extensive hospitalization, parents moved pt back into their home. Dad is home at all times, mom is dx with MS Self Care: Independent Functional Cognition: Independent DME/Equipment: Bath Chair, Grab Bars, Tub/Shower Occupation: unemployed Drive Self: Yes Leisure Interests: computer, TV OT Current Status Subjective Pt AxO, brought by EMS from outside hospital. Pt expresses mod pain in bottom and min pain in bilateral feet. Pt expresses since hospitalization, pt's feet have been numb/ tingling/ decreased sensation. Pt pleasant, cooperative. Good problem solving/ cognition. PT evaluation: [id number] OT evaluation: 4071-4592 (10) OT/ PT co-treat: [id number] (30) OT individual tx: [id number] (10) OT individual tx: [id number] (10) OT/ PT co-treat: [id number] (30) Cotreats completed on this date with OT addressing UE movement/ strength, ADLs, problem solving and PT addressing LE strength/ movement, balance, fx transfers. Mental Status/Objective Patient Orientation: Person, Place, Situation, Normal For Age Current Glasses/Contacts: Yes Hearing Aids: No Dentures/Partials: No Hand Dominance: Right Upper Extremity ROM R: WFL shoulder flexion, elbow flexion, wrist flexion, finger flexion. Pt has severe wrist drop bilaterally with 0/5 MMT, similar with bilateral finger extensors. L: WFL shoulder flexion though slightly delayed, decreased elbow flexion (uncoordinated/ decreased strength), severe wrist drop and decreased strength LUE. Upper Extremity Coordination Decreased bilaterally: able to make fists, unable to extend fingers. Functionally can grasp/ hold items, however, unable to actively release or grasp large items. Upper Extremity Sensation Decreased light touch 1st through 4th digits. 5th digit WFL. Temperature/ deep pressure WFL BUE. Upper Extremity Strength L: WFL shoulder flexion though slightly delayed, decreased elbow flexion (uncoordinated/ decreased strength), severe wrist drop and decreased strength LUE. R: WFL proximal joints, decreased strength wrist/ hand. Pt has major tunneling wound on bottom. Wound on knee, limiting use of sit to stand lift. Superficial wound on L cheek. ADL-Treatment Eating (QC): 3 (built up handle placed in hand, pt able to scoop food with SUP with RUE. Requires assist with drinking due to inability to extend fingers. Pt able to utilize passive extension of R hand (with use of cup) to grasp and bring to mouth. ) Oral Hygiene (QC): 3 (use of built up handle and s/u for toothpaste. Min A for this task.) Shower/Bathe Self (QC): 1 (TD due to Ax2. Completed in bed, rolling mod A side to side.) Upper Body Dressing (QC): 3 (mod A) Lower Body Dressing (QC): 1 (based on current abilities, will require Ax2 for donning/ doffing undergarments/ pants.) On/Off Footwear (QC): 1 (donning/ doffing with TD. pain noted during task due to hypersensitive feet.) Toileting Hygiene (QC): 1 (TD with Ax2. Completed in bed.Pt expresses con tinence of BM, though slight incontinence of urination since morley taken out. ) Other Treatments OT/ PT evals completed. Educated on ARU expectations. Due to pt's extensive ventilation time, pt has decreased sensation in BLE and BUE. Pt expresses decreased strength and incoordination of L bicep. Pt completes bed mobility (rolling) during bottom dressing change and sponge bath (see above for wounds: bottom, L knee, L facial cheek). Due to pt's severe wound on bottom, wound care nurse suggests only up for a few minutes before returning to bed. Pt is unable to assist in sponge bath, as he states, "It's just awkward," due to pt's inability to extend/ grasp consistently. Pt's hair washed/ brushed for pt and new gown placed after sponge bath. Pt left in bed, awaiting food, all needs met, call light in reach (light touch). Pt on R side to decrease pressure on bottom. Upon return, pt in bed, food to side of pt. Originally, pt requires max A to bring food to mouth. Built up handle and pillow placed for increased shoulder flexion placed to R side for increased feeding abilities (SUP). Pt able to utilize passive extension of R hand (with use of cup) to grasp and bring to mouth. Pt agrees to sit in chair for remainder of feeding, use of jackie and TD x2 for safety to recliner. Pt completes feeding, SUP for increased ability and min A for placement of large handled spoon. Pt is brought back to bed with jackie after ~10 minutes of upright positioning. Once in bed/ positioned for success for feeding, OT stabilizes container while pt completes feeding. Pt left in bed with all needs met, light tough call light in reach. Education OT Patient Education: Correct positioning, Home exercise program, Modified ADL techniques, Progress toward Goal/Update tx plan, Purpose of tx/functional activities, Rehab process, Safety issues, Transfer techniques, Use of adapted equipment Teaching Recipient: Patient Teaching Methods: Demonstration, Discussion Response to Teaching: Verbalize Understanding, Return Demonstration OT Short Term Goals Short Term Goals Eatin Oral hygiene: 3 Toileting hygiene: 2 Shower/bathe self: 2 Upper body dressin Lower body dressin Putting on/taking off footwear: 2 OT Oven Tender Goals Long-Term Goals Time Frame: Aug 31, 2020 Eating (QC): 6 Oral Hygiene (QC): 6 Toileting Hygiene (QC): 4 Shower/Bathe Self (QC): 4 Upper Body Dressing (QC): 6 Lower Body Dressing (QC): 4 On/Off Footwear (QC): 4 Additional Goals: 1-Demonstrate ADL Tasks, 2-Verbalize Understanding, 3- ImproveStrength/Héctor 1=Demonstrate adherence to instructed precautions during ADL tasks. 2=Patient will verbalize/demonstrate understanding of assistive devices/modifications for ADL. 3=Patient will improve strength/tolerance for activity to enable patient to perform ADL's. OT Education/Plan Problem List/Assessment Assessment: Decreased Activ Tolerance, Decreased UE Strength, Dependent Transfers, Edema, Impaired Bed Mobility, Impaired Coordination, Impaired Funct Balance, Impaired I ADL's, Impaired Self-Care Skills Discharge Recommendations Plan/Recommendations: Continue POC Therapy Discharge Recommendati: Intermittent Supervision, Home & Family, Post Acute OT Equpiment Recommendations-D/C: Extended Bath Bench Comment will determine other DME by d/c Treatment Plan/Plan of Care Treatment,Training & Education: Yes Patient would benefit from OT for education, treatment and training to promote independence in ADL's, mobility, safety and/or upper extremity function for ADL's. Plan of Care: ADL Retraining, Caregiver Training, Concurrent Therapy, Functional Mobility, Group Exercise/Act as Ind, Orthotic Fitting/Training, UE Funct Exercise/Act, UE Neuromus Re-Ed/Coord, W/C Management Training Treatment Duration: Aug 31, 2020 Frequency: At least 5 of 7 days/Wk (IRF) Estimated Hrs Per Day: 1 hour per day (covid waiver, see comments below.) Agreement: Yes Rehab Potential: Fair Due to a COVID-19 viral infection, the pt has deficits that warrant inpatient acute rehab. The pt will clearly benefit from intensive PT and OT, however, due to pt's observed endurance and therapy considerations, he may not be able to tolerate the full 3 hours of scheduled therapy. Therefore, he will be scheduled for as much therapy as the can tolerate with intentional rest breaks, shortened sessions, including providing therapy across 6-7 days. As the pt tolerates, the intensity, frequency and duration of his therapy program will be increased. Time/GCodes Start Time: 11:20 Stop Time: 13:30 (see below for break-up of timing) Total Time Billed (hr/min): 90 Billed Treatment Time Cotreats completed on this date with OT addressing UE movement/ strength, ADLs, problem solving and PT addressing LE strength/ movement, balance, fx transfers. PT evaluation: [id number] OT evaluation: [id number] (10) OT/ PT co-treat: [id number] (30) OT individual tx: [id number] (10) 1, EVM, ADL 2= 50 OT individual tx: [id number] (10) OT/ PT co-treat: 0736-3555 (30) 1, ADL 2, FA (40) Total: 90 [facility] OTR Aug 10, 2020 13:18
--- NOTE | 2020-08-10 13:19 | Physical Therapy Evaluation ---
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 Prior Prior Level of Function SCALE: Activities may be completed with or without assistive devices. 0-Xvwhatqdff-tjhyjcw completes the activity by him/herself with no assistance from a helper. 5-Set-up or Clean-up Assistance-helper sets up or cleans up; patient completes activity. [place] assists only prior to or following the activity. 4-Supervision or Touching Assistance-helper provides verbal cues and/or touching/steadying and/or contact guard assistance as patient completes activity. Assistance may be provided throughout the activity or intermittently. 3-Partial/Moderate Assistance-helper does LESS THAN HALF the effort. [place] lifts, holds or supports trunk or limbs, but provides less than half the effort. 2-Substantial/Maximal Assistance-helper does MORE THAN HALF the effort. [place] lifts or holds trunk or limbs and provides more than half the effort. 8-Tqgkiquxw-ybmwmd does ALL the effort. Patient does none of the effort to complete the activity. Or, the assistance of 2 or more helpers is required for the patient to complete the activity. If activity was not attempted, code reason: 7-Patient Refused. 9-Not Applicable-not attempted and the patient did not perform the activity before the current illness, exacerbation or injury. 10-Not Attempted due to Environmental Limitations-(lack of equipment, weather restraints, etc.). 88-Not Attempted due to Medical Conditions or Safety Concerns. Bed Mobility: 6 Transfers (B,C,W/C): 6 Gait: 6 Stairs: 6 Indoor Mobility (Ambulation): Independent Stairs: Independent PT Evaluation-Current Subjective Patient in bed pre tx, agrees to PT, has 6/10 pain on bottom and 2/10 pain in his feet, patient states he has sensitive feet. Will be co-treating with OT for part of tx due to poor patient mobility, strength, endurance, coordinate UE and LE during activity, safety and reduce risk of falls. Pt/Family Goals "to get stronger" Objective Patient Orientation: Person, Place, Situation ROM/Strength ROM Lower Extremities Patient has bilateral ankle plantarflexion contractures of about 20 degrees each. Strength Lower Extremities LLE (hip flexion 3/5, knee flexion 3+/5, knee extension 3+/5, dorsiflexion 0/5), RLE (hip flexion 3/5, knee flexion 3+/5, knee extension 3+/5, dorsiflexion 0/5) Integumentary/Posture Integumentary Patient has a sacral wound and knee wound, see wound care notes Sensory Vision: Wears Glasses Hearing: Functional Sensation Right Lower Extremit: Impaired Sensation Left Lower Extremity: Impaired Sensation Lower Extremities Patient has decreased light touch sensation in both feet. Transfers Roll Left & Right (QC): 3 Sit to Lying (QC): 1 Lying to Sitting/Side of Bed(Q: 1 Sit to Stand (QC): 88 Chair/Var-dn-Xhblf Xfer(QC): 1 Toilet Transfer (QC): 1 Car Transfer (QC): 1 Patient is dependent for all mobility except he can roll to each side with min assist. Gait Does the Patient Walk?: No and Walking Goal NOT indicated Walk 10 feet (QC): 88 Walk 50 ft with 2 Turns(QC): 88 Walk 150 ft (QC): 88 Walking 10ft/uneven surface-QC: 88 Wheelchair Training Wheel 50 ft with 2 turns (QC): 1 Wheel 150 ft (QC): 1 Stairs 1 Step (curb) (QC): 88 4 Steps (QC): 88 12 Steps (QC): 88 Balance Sitting Static: Poor Sitting Dynamic: Poor Picking up an Object (QC): 88 Treatment PT performed bed mobility, rolling, assist with positioning and safety during wound care and assist bathing, OT performed bathing and assisted with positioning Assessment/Needs Patient has impaired mobility, strength, endurance, ROM, patient in bed post tx with nurse call, phone, tray, all needs met. Patient needs jackie for transfers. Rehab Potential: Guarded PT Short Term Goals Short Term Goals Time Frame: Aug 17, 2020 Roll Left & Right: 4 Sit to lyin Lying to sitting on side of be: 2 Sit to stand: 1 Chair/nqr-uf-cwosm transfer: 1 PT Long-Term Goals Long-Term Goals PT Software Test And Validation Engineer Goals Time Frame: Aug 31, 2020 Roll Left & Right (QC): 6 Sit to Lying (QC): 3 Lying-Sitting on Side/Bed(QC): 3 Sit to Stand (QC): 2 Chair/Fud-qp-Bnpsx Xfer(QC): 2 Toilet Transfer (QC): 2 Car Transfer (QC): 1 Does the Patient Walk: No and Walking Goal NOT indicated Walk 10 feet (QC): 88 Walk 50ft with 2 Turns (QC): 88 Walk 150 ft (QC): 88 Walking 10ft on Uneven Surface: 88 1 Step (curb) (QC): 88 4 Steps (QC): 88 12 Steps (QC): 88 Picking up an Object (QC): 88 Wheel 50 feet with 2 turns (QC: 3 Wheel 150 feet: 3 PT Plan Problem List Problem List: Activity Tolerance, Functional Strength, Safety, Balance, Gait, Transfer, Bed Mobility, ROM Treatment/Plan Treatment Plan: Continue Plan of Care Treatment Plan: Bed Mobility, Education, Functional Activity Héctor, Functional Strength, Group Therapy, Gait, Safety, Therapeutic Exercise, Transfers Treatment Duration: Aug 31, 2020 Frequency: Estimated Hrs Per Day: 1 hour per day Patient and/or Family Agrees t: Yes Due to a COVID-19 viral infection, the pt has deficits that warrant inpatient acute rehab. The pt will clearly benefit from intensive PT and OT, however, due to pt's observed endurance and therapy considerations, he may not be able to tolerate the full 3 hours of scheduled therapy. Therefore, he will be scheduled for as much therapy as the can tolerate with intentional rest breaks, shortened sessions, including providing therapy across 6-7 days. As the pt tolerates, the intensity, frequency and duration of his therapy program will be increased. Safety Risks/Education Patient Education: Correct Positioning, Safety Issues Teaching Recipient: Patient Teaching Methods: Demonstration, Discussion Response to Teaching: Reinforcement Needed Discharge Recommendations Plan Patient will perform bed mobility and transfer training, balance and endurance training, functional strengthening, and education, to improve functional mobility and independence at home. Therapy Discharge Recommendati: 24 Hour Supervision Time/GCodes Time In: 1110 Time Out: 1200 Total Billed Treatment Time: 40 Total Billed Treatment 1 visit EVM 10' FA 30' PT evaluation: [id number] (10) OT evaluation: [id number] (10) OT/ PT co-treat: [id number] (30) LYNDSAY PERRY PT Aug 10, 2020 13:19
[2020-08-10 13:30] LABS: EOSINOPHILS % (MANUAL) 3 %; LYMPHOCYTES % (MANUAL) 25 %; MONOCYTES % (MANUAL) 6 %; NEUTROPHILS % (MANUAL) 66 %
[2020-08-10 13:31] LABS: RBC MORPH NORMAL
[2020-08-10] MEDS ORDERED: DULO30CA49 PO (13:53)
[2020-08-10] MEDS ORDERED: IBUP-2185 PO (13:53)
[2020-08-10] MEDS ORDERED: DULO60CA59 PO (13:53)
[2020-08-10] MEDS ORDERED: CHOL500044 PO (13:53)
[2020-08-10] MEDS ORDERED: ACET325C7 PO (13:53)
[2020-08-10] MEDS ORDERED: GABA300C PO (13:53)
[2020-08-10] MEDS ORDERED: TMSL.4C PO (13:53)
[2020-08-10] MEDS ORDERED: LACT1CAP76 PO (13:53)
[2020-08-10] MEDS ORDERED: BALS60OI TP (13:53)
[2020-08-10] MEDS ORDERED: METO50TA15 PO (13:53)
[2020-08-10] MEDS ORDERED: DILT180C84 PO (13:53)
[2020-08-10] MEDS ORDERED: INSU100V6 SQ (13:53)
[2020-08-10] MEDS ORDERED: CLN.1T PO (13:53)
[2020-08-10] MEDS ORDERED: ASCO500T17 PO (13:53)
[2020-08-10] MEDS ORDERED: QUET25TA34 PO (13:53)
[2020-08-10] MEDS ORDERED: COLL30OI TP (13:53)
[2020-08-10] MEDS ORDERED: INSU100V SQ (13:53)
[2020-08-10] MEDS ORDERED: MULT-349 PO (13:53)
[2020-08-10] MEDS ORDERED: SENN-234 PO (13:53)
[2020-08-10] MEDS ORDERED: MELA5TAB14 PO (13:53)
[2020-08-10] MEDS ORDERED: IPRA3AMP31 IH (13:53)
[2020-08-10] MEDS ORDERED: FURO40TA4 PO (13:53)
[2020-08-10] MEDS ORDERED: CASTOR OIL TP PRN (14:15)
[2020-08-10] MEDS ORDERED: BALSAM PERU TP PRN (14:15)
[2020-08-10] MEDS ORDERED: RT-ALBUTEROL/IPRATROPIUM 3 ML (DUONEB) VIAL IH PRN (14:15)
--- NOTE | 2020-08-10 14:21 | ST Cognitive Linguistic Eval ---
Speech Evaluation-General Medical Diagnosis Debility post COVID and intubation Onset Date: Jun 08, 2020 Therapy Diagnosis Therapy Diagnosis: Cognitive-communication Medical History Pertinent Medical History: DM, HTN Reviewed History: Yes Social History Current Living Status: Other Family (mom and dad) Speech PLF-Current Status Prior Level of Function Prior to COVID patient lived alone and was independent for his daily needs. He was unemployed at that time. Subjective Patient was pleasant and cooperative with the cognitive assessment. Language Eval: Auditory Comprehends Simple Yes/No Ques: Functional Indent/Objects Multiple [place]: Functional Ident/Pics in Multiple [place]: Functional Follows 1-Step Commands: Functional Follows Complex Directions: Functional Follows General Conversations: Functional Language Eval: Verbal Language Completes Spontaneous Greeting: Functional Produces Auto, Serial Info: Functional Imitates Simple Words/Phrases: Functional Word Finding: Functional Requests Basic Needs: Functional States Basic Personal Info: Functional Expresses Complex Ideas: Functional Objective Cognitive Domain Attention: WNL Memory: WNL Problem Solving: Functional Executive Functions: WNL Visuospatial Skills: WNL Composite Severity Rating: WNL Objective Formal/Standardized Tests [facility] Status ([facility]) Results 27/30, within normal range of function Oral Motor/Speech Production Within Normal Limits Impression Patient is a 34 y/o male who was admitted to the ARU following 3 months of hospitalization post COVID. Patient was intubated for 5.5 weeks with two failed extubation attempts. His third attempt was successful and no O2 at this time. Patient was given the SLUMS at bedside with a score of 27/30 obtained. This score is within normal range of function with no further ST services warranted at this time. Speech Patient Assess Expression of Ideas/Wants: Expression (4) Understanding Verbal Content: Understands (4) Brief Interview-Mental Status: Yes Repetition of Three Words: Three (3) Temporal Orientation: Year: Correct (3) Temporal Orientation: Month: Accurate within 5 days(2) Temporal Orientation: Day: Correct (1) Recall : Wear to say "Sock": Yes,after cueing (1) Recall : Color: Yes, after cueing (1) Recall : Bed: Yes, no cue required (2) Memory/Recall Ability: Current season, That he or she is in a hsp/hsp unit Speech-Plan Patient/Family Goals Patient/Family Goals: While in the hospital his parents moved his belongings out of his apartment and back in their home. He will reside with his parents upon hospital discharge. Treatment Plan Speech Therapy Treatment Plan: Discontinue ST Treatment Duration: Aug 10, 2020 Frequency: 1 time per week Estimated Hrs Per Day: .25 hour per day Rehab Potential: Fair Barriers to Learning: None identified Pt/Family Agrees to Plan: Yes Safety Risks/Education Teaching Recipient: Patient Teaching Methods: Discussion Response to Teaching: Verbalize Understanding Education Topics Provided: Safety within his room and communication of wants/needs Time Speech Therapy Time In: 13:30 Speech Therapy Time Out: 14:00 Total Billed Time: 30 Billed Treatment Time 1, SPSNDCOMP Carla WISDOMONMADISYNBRADEN ST Aug 10, 2020 14:21
[2020-08-10] MEDS ORDERED: IBUPROFEN TABLET 200 MG TAB PO PRN (14:30)
--- NOTE | 2020-08-10 14:55 | Physical Therapy Daily Note ---
PT Daily Note-Current Subjective Patient in bed pre tx, agrees to PT, voices no complaints of pain. Appearance Patient in bed post tx with nurse call, phone, tray, all needs met. Mental Status Patient Orientation: Person, Place, Situation Transfers SCALE: Activities may be completed with or without assistive devices. 9-Msqjbcccoi-bjcywlx completes the activity by him/herself with no assistance from a helper. 5-Set-up or Clean-up Assistance-helper sets up or cleans up; patient completes activity. [place] assists only prior to or following the activity. 4-Supervision or Touching Assistance-helper provides verbal cues and/or touching/steadying and/or contact guard assistance as patient completes activity. Assistance may be provided throughout the activity or intermittently. 3-Partial/Moderate Assistance-helper does LESS THAN HALF the effort. [place] lifts, holds or supports trunk or limbs, but provides less than half the effort. 2-Substantial/Maximal Assistance-helper does MORE THAN HALF the effort. [place] lifts or holds trunk or limbs and provides more than half the effort. 6-Jwtyvefbg-rwdzgi does ALL the effort. Patient does none of the effort to complete the activity. Or, the assistance of 2 or more helpers is required for the patient to complete the activity. If activity was not attempted, code reason: 7-Patient Refused. 9-Not Applicable-not attempted and the patient did not perform the activity before the current illness, exacerbation or injury. 10-Not Attempted due to Environmental Limitations-(lack of equipment, weather restraints, etc.). 88-Not Attempted due to Medical Conditions or Safety Concerns. Roll Left & Right (QC): 3 Chair/Tvf-dn-Fbloi Xfer(QC): 1 Patient will be hoyered to recliner for a few minutes, finish up a little lunch and then transferred back to bed. Patient has to roll from side to side to get jackie sling under him (min assist), jackie to recliner and needs some assist with positioning after sitting, he cannot sit for more than a few minutes due to his wound. After finishing some lunch he is hoyered back to bed, has to roll again from side to side to remove sling and place new pad under him. Treatments PT worked on rolling, bed mobility, jackie transfer, OT assisted with transfers and UE positioning and safety during activity. Assessment Current Status: Poor Progress Patient is not strong enough to reposition his body while sitting in the recliner. PT Short Term Goals Short Term Goals Time Frame: Aug 17, 2020 Roll Left & Right: 4 Sit to lyin Lying to sitting on side of be: 2 Sit to stand: 1 Chair/ouq-vl-bgvji transfer: 1 PT Oil Boiler Goals Assisted Goals PT Assisted Goals Time Frame: Aug 31, 2020 Roll Left & Right (QC): 6 Sit to Lying (QC): 3 Lying-Sitting on Side/Bed(QC): 3 Sit to Stand (QC): 2 Chair/Kgr-uv-Ubqij Xfer(QC): 2 Toilet Transfer (QC): 2 Car Transfer (QC): 1 Does the Patient Walk: No and Walking Goal NOT indicated Walk 10 feet (QC): 88 Walk 50ft with 2 Turns (QC): 88 Walk 150 ft (QC): 88 Walking 10ft on Uneven Surface: 88 1 Step (curb) (QC): 88 4 Steps (QC): 88 12 Steps (QC): 88 Picking up an Object (QC): 88 Wheel 50 feet with 2 turns (QC: 3 Wheel 150 feet: 3 PT Plan Problem List Problem List: Activity Tolerance, Functional Strength, Safety, Balance, Gait, Transfer, Bed Mobility, ROM Treatment/Plan Treatment Plan: Continue Plan of Care Treatment Plan: Bed Mobility, Education, Functional Activity Héctor, Functional Strength, Group Therapy, Gait, Safety, Therapeutic Exercise, Transfers Treatment Duration: Aug 31, 2020 Frequency: Estimated Hrs Per Day: 1 hour per day Patient and/or Family Agrees t: Yes Safety Risks/Education Patient Education: Transfer Techniques, Correct Positioning, Safety Issues Teaching Recipient: Patient Teaching Methods: Demonstration, Discussion Response to Teaching: Reinforcement Needed Time/GCodes Time In: 1300 Time Out: 1330 Total Billed Treatment Time: 30 Total Billed Treatment 1 visit FA 30' LYNDSAY PERRY PT Aug 10, 2020 14:55
[2020-08-10] MEDS: fentaNYL PATCH 25 MCG (DURAGESIC) TD SCH (15:20)
[2020-08-10] MEDS: ENOXAPARIN 40 MG/0.4 ML (LOVENOX) SYR SC SCH (15:20)
[2020-08-10 16:00] VITALS: BP 123/71
--- NOTE | 2020-08-10 16:13 | Consultation - Surgery ---
KADEN SHARMA MED STUDENT 08/10/20 1613: History of Present Illness History of Present Illness Patient Consulted On(kvng/time) 08/10/20 16:06 Date Seen by Provider: Aug 10, 2020 Time Seen by Provider: 15:50 History of Present Illness This is a 36 year old male that is here following a hospital stay due to covid. He was admitted in early June and was intubated around the same time. He max led 2 extubations and remained on vent until Jul 19. He then remained at [facility] until his transfer here today. There is concern for a bedsore on his lower back in the coccyx area that is not healing well. Nursing also reports some sores on his L knee and buttocks. He states that his only pain today is in his feet which he describes as burning or tingling. He has been evaluated by PT, OT, and speech therapy. He has scoliosis so it is hard for him to stand. But he did ambulate to a chair earlier today. He has eaten today without any difficulties or nausea/vomiting. LBM was around 10 This morning with no pain or blood. He will be getting a picc line later today. States he has a hard time remembering the timeline of his hospitalizations. Denies Fevers, Chills Allergies and Home Medications Allergies Coded Allergies: No Known Drug Allergies (Unverified , 06/08/20) Home Medications Acetaminophen 325 Mg Capsule, 650 MG PO Q6H PRN for PAIN-MILD (1-4) OR TEMPATURE, (Reported) Ascorbic Acid 500 Mg Tablet, 500 MG PO DAILY, (Reported) Balsam Mara/Adirondack Oil 60 Gm Oint...g., 1 APPLIC TP BID PRN for SKIN IRRITATION, (Reported) Cholecalciferol (Vitamin D3) 125 Mcg Tablet, 125 MCG PO DAILY, (Reported) Clonidine HCl 0.1 Mg Tablet, 0.1 MG PO BID, (Reported) HOLD FOR HR LESS THAN 70 OR SBP LESS THAN 110 Collagenase 30 Gm Oint..gm., 1 APPLIC TP DAILY, (Reported) APPLY TO LEFT KNEE AND SACRUM Collagenase 30 Gm Oint..gm., 1 APPLIC TP DAILY PRN for FOR SOILED DRESSING, (Reported) Diltiazem HCl 180 Mg Cap.er.24h, 180 MG PO DAILY, (Reported) Duloxetine HCl 30 Mg Capsule.dr, 30 MG PO 1800, (Reported) Duloxetine HCl 60 Mg Capsule.dr, 60 MG PO DAILY, (Reported) Furosemide 40 Mg Tablet, 40 MG PO DAILY, (Reported) HOLD FOR SBP LESS THAN 100 Gabapentin 300 Mg Capsule, 300 MG PO TID, (Reported) Ibuprofen 200 Mg Capsule, 400 MG PO Q6H PRN for PAIN-MILD (1-4), (Reported) Insulin Glargine,Hum.rec.anlog 100 Unit/1 Ml Vial, 10 UNIT SQ HS, (Reported) Insulin Lispro 100 Unit/1 Ml Vial, 0-14 UNIT SQ ACHS, (Reported) Ipratropium/Albuterol Sulfate 3 Ml Ampul.neb, 3 ML IH Q2H PRN for SHORTNESS OF BREATH, (Reported) Lactobacillus Acidophilus/Pect 1 Each Capsule, 1 EACH PO BID, (Reported) Melatonin 5 Mg Tablet, 5 MG PO HS, (Reported) Metoprolol Tartrate 50 Mg Tablet, 50 MG PO BID, (Reported) Multivit,Ther Iron,Ca,FA & Min 1 Each Tablet, 1 EACH PO DAILY, (Reported) Quetiapine Fumarate 25 Mg Tablet, 25 MG PO HS, (Reported) Sennosides 8.6 Mg Tablet, 8.6 MG PO BID, (Reported) Tamsulosin HCl 0.4 Mg Cap, 0.4 MG PO HS, (Reported) Past Qouocds-Pimdfr-Wnwlfn Hx Patient Social History Number of Drinks Today: 0 Smoking Status: Never a Smoker 2nd Hand Smoke Exposure: No Recent Hopitalizations: Yes (Recently released from [facility] following COVID infection. ) Alcohol Use?: No Have you traveled recently?: No Immunizations Up To Date Tetanus Booster (TDap): Unknown Date of Influenza Vaccine: Mar 23, 2020 Seasonal Allergies Seasonal Allergies: No Surgeries History of Surgeries: Yes (dental) Respiratory History of Respiratory Disorde: No Cardiovascular History of Cardiac Disorders: Yes Cardiac Disorders: High Cholesterol, Hypertension Neurological History of Neurological Disord: No Genitourinary History of Genitourinary Disor: No Gastrointestinal History of Gastrointestinal Di: No Musculoskeletal History of Musculoskeletal Dis: No Endocrine History of Endocrine Disorders: Yes Endocrine Disorders: Diabetes, Insulin dep HEENT History of HEENT Disorders: No Cancer History of Cancer: No Psychosocial History of Psychiatric Problem: Yes Behavioral Health Disorders: Depression Integumentary History of Skin or Integumenta: No Blood Transfusions History of Blood Disorders: No Family Medical History Significant Family History: No Pertinent Family Hx (Denies family history of chronic medical conditions or cancers. ), Other Conditions/Hx Review of Systems-General Respiratory: No short of breath, No wheezing Cardiovascular: No chest pain, No edema, No palpitations Gastrointestinal: no symptoms reported; No abdominal pain, No diarrhea, No melena, No nausea, No vomiting Genitourinary: No dysuria, No hematuria Musculoskeletal: other (Stinging pain in feet) Physical Exam-General Problems Physical Exam Vital Signs Vital Signs - First Documented 08/10/20 11:10 Temp 36.6 Pulse 131 Resp 18 B/P (MAP) 133/89 (104) Pulse Ox 95 O2 Delivery Room Air Capillary Refill : General Appearance: no apparent distress Respiratory: chest non-tender, lungs clear, normal breath sounds, no respiratory distress, no accessory muscle use Cardiovascular: regular rate, rhythm, no edema, no murmur Peripheral Pulses: 2+ Radial Pulses (R), 2+ Radial Pulses (L) Gastrointestinal: normal bowel sounds, non tender, soft Back: other (Open sore at coccyx area that is packed. Appears dry. ) Extremities: no pedal edema, no calf tenderness, other ( Has sore about 4-5cm in diameter on L knee) Neurologic/Psychiatric: alert, oriented x 3 Skin: normal color, warm/dry Data Review Labs Laboratory Tests 08/10/20 12:30: White Blood Count 15.5H, Red Blood Count 4.22L, Hemoglobin 11.0L, Hematocrit 34L , Mean Corpuscular Volume 81, Mean Corpuscular Hemoglobin 26, Mean Corpuscular Hemoglobin Concent 32, Red Cell Distribution Width 14.6H, Platelet Count 498H, Mean Platelet Volume 8.6L, Immature Granulocyte % (Auto) 1, Neutrophils (%) (Auto) 70, Lymphocytes (%) (Auto) 21, Monocytes (%) (Auto) 8, Eosinophils (%) (Auto) 1, Basophils (%) (Auto) 0, Neutrophils # (Auto) 10.8H, Lymphocytes # (Auto) 3.2, Monocytes # (Auto) 1.3H, Eosinophils # (Auto) 0.2, Basophils # (Auto) 0.1, Immature Granulocyte # (Auto) 0.1, Neutrophils % (Manual) 66, Lymphocytes % (Manual) 25, Monocytes % (Manual) 6, Eosinophils % (Manual) 3, Band Neutrophils , Blood Morphology Comment NORMAL, Sodium Level 135, Potassium Level 4.9, Chloride Level 101, Carbon Dioxide Level 21, Anion Gap 13, Blood Urea Nitrogen 25H, Creatinine 0.64, Estimat Glomerular Filtration Rate > 60, BUN/Creatinine Ratio 39, Glucose Level 131H, Lactic Acid Level 1.57, Calcium Level 9.5, Corrected Calcium 9.7, Total Bilirubin 0.4, Aspartate Amino Transf (AST/SGOT) 35H, Alanine Aminotransferase (ALT/SGPT) 30, Alkaline Phosphatase 121, Total Protein 7.1, Albumin 3.7, Procalcitonin 0.05 08/10/20 15:41: Glucometer 139H Assessment/Plan Assessment/Plan Assessment/Plan 1. Decubitus Ulcer -Chemical debriedment -Check daily for worsening of ulcer WADENADINEANDRES Odell DO 08/10/20 1648: History of Present Illness History of Present Illness Time Seen by Provider: 16:26 History of Present Illness Surgery asked to consult regarding Sacral Decubitis Ulcer Pt is a 34 yo male who was recently transferred to the adult rehab unit from [facility]. Pt had COVID-19 and was on a ventilator for over a month. He states he does not have complete strength in his legs and is unable to ambulate. He is concerned about the wound on his knee and face. Denies pain in these areas; therefore no radiation of pain and nothing to make it better or worse. Allergies and Home Medications Allergies Coded Allergies: No Known Drug Allergies (Unverified , 06/08/20) Home Medications Acetaminophen 325 Mg Capsule, 650 MG PO Q6H PRN for PAIN-MILD (1-4) OR TEMPATURE, (Reported) Ascorbic Acid 500 Mg Tablet, 500 MG PO DAILY, (Reported) Balsam Mara/Adirondack Oil 60 Gm Oint...g., 1 APPLIC TP BID PRN for SKIN IRRITATION, (Reported) Cholecalciferol (Vitamin D3) 125 Mcg Tablet, 125 MCG PO DAILY, (Reported) Clonidine HCl 0.1 Mg Tablet, 0.1 MG PO BID, (Reported) HOLD FOR HR LESS THAN 70 OR SBP LESS THAN 110 Collagenase 30 Gm Oint..gm., 1 APPLIC TP DAILY, (Reported) APPLY TO LEFT KNEE AND SACRUM Collagenase 30 Gm Oint..gm., 1 APPLIC TP DAILY PRN for FOR SOILED DRESSING, (Reported) Diltiazem HCl 180 Mg Cap.er.24h, 180 MG PO DAILY, (Reported) Duloxetine HCl 30 Mg Capsule.dr, 30 MG PO 1800, (Reported) Duloxetine HCl 60 Mg Capsule.dr, 60 MG PO DAILY, (Reported) Furosemide 40 Mg Tablet, 40 MG PO DAILY, (Reported) HOLD FOR SBP LESS THAN 100 Gabapentin 300 Mg Capsule, 300 MG PO TID, (Reported) Ibuprofen 200 Mg Capsule, 400 MG PO Q6H PRN for PAIN-MILD (1-4), (Reported) Insulin Glargine,Hum.rec.anlog 100 Unit/1 Ml Vial, 10 UNIT SQ HS, (Reported) Insulin Lispro 100 Unit/1 Ml Vial, 0-14 UNIT SQ ACHS, (Reported) Ipratropium/Albuterol Sulfate 3 Ml Ampul.neb, 3 ML IH Q2H PRN for SHORTNESS OF BREATH, (Reported) Lactobacillus Acidophilus/Pect 1 Each Capsule, 1 EACH PO BID, (Reported) Melatonin 5 Mg Tablet, 5 MG PO HS, (Reported) Metoprolol Tartrate 50 Mg Tablet, 50 MG PO BID, (Reported) Multivit,Ther Iron,Ca,FA & Min 1 Each Tablet, 1 EACH PO DAILY, (Reported) Quetiapine Fumarate 25 Mg Tablet, 25 MG PO HS, (Reported) Sennosides 8.6 Mg Tablet, 8.6 MG PO BID, (Reported) Tamsulosin HCl 0.4 Mg Cap, 0.4 MG PO HS, (Reported) Patient Home Medication List Home Medication List Reviewed: Yes Past Ukfecnw-Jteboa-Ufbvst Hx Patient Social History Smoking Status: Never a Smoker Recent Hopitalizations: Yes (Recently released from [facility] following COVID infection. ) Alcohol Use?: No Surgeries History of Surgeries: Yes (wisdom teeth) Respiratory History of Respiratory Disorde: Yes (Covid -19 respiratory failure) Cardiovascular History of Cardiac Disorders: No Neurological History of Neurological Disord: Yes (wasting of muscles and nerves secondary to long-term ventilation) Reproductive System Hx Reproductive Disorders: No Genitourinary History of Genitourinary Disor: No Gastrointestinal History of Gastrointestinal Di: No Musculoskeletal History of Musculoskeletal Dis: Yes Musculoskeletal Disorders: Foot Drop, Contracture Endocrine History of Endocrine Disorders: Yes Endocrine Disorders: Diabetes, Insulin dep HEENT History of HEENT Disorders: No Loss of Vision: Denies Hearing Impairment: Denies Cancer History of Cancer: No Psychosocial History of Psychiatric Problem: Yes Behavioral Health Disorders: Depression Integumentary History of Skin or Integumenta: Yes (decubitus ulcers) Family Medical History Significant Family History: Hypertension (mother), Other Conditions/Hx (Mother has MS) Review of Systems-General Constitutional: malaise, weakness EENTM: No blurred vision, No vision loss, No mouth pain, No mouth swelling, No epistaxis Respiratory: dyspnea on exertion; No short of breath, No wheezing Cardiovascular: No chest pain, No edema, No palpitations Gastrointestinal: No abdominal pain, No diarrhea, No melena, No nausea, No vomiting Genitourinary: No dysuria, No hematuria Musculoskeletal: muscle weakness Skin: other (ulcers) Psychiatric/Neurological: Depressed, Pre-Existing Deficit, Tingling, Weakness Other Pt denies any hx of abnormal bleeding or bruising Physical Exam-General Problems Physical Exam General Appearance: no apparent distress, obese Eyes: Bilateral Eye PERRL, Bilateral Eye EOMI HEENT: pharynx normal; No scleral icterus (R), No scleral icterus (L) Neck: non-tender, supple Respiratory: lungs clear, normal breath sounds, no respiratory distress, no accessory muscle use Cardiovascular: regular rate, rhythm, no murmur Gastrointestinal: non tender, soft, no organomegaly Back: no CVA tenderness, no vertebral tenderness, other (Open sore at coccyx area - Stage IV ) Extremities: no pedal edema, no calf tenderness, other ( Has sore about 4-5cm in diameter on L knee, stage III decub) Neurologic/Psychiatric: alert, oriented x 3 Skin: normal color, warm/dry, other (decub) Lymphatic: no adenopathy (neck, axilla or groin) Assessment/Plan Assessment/Plan Assessment/Plan Decubitis Ulcer - Sacral, Knee, face Dakins solution on sacral ulcer - it is stage IV, no surgical intervention at this time; but may need debridement in the OR if it gets worse - will monitor Sanofyl on knee and Betadine on the facial scab DM - home meds and glucose checks Supervisory-Addendum Brief Verification & Attestation Participated in pt care: history, MDM, physical Personally performed: exam, history, MDM Care discussed with: Medical Student Procedures: n/a Verification and Attestation of Medical Student E/M Service A medical student performed and documented this service. I then reviewed and verified all information documented by the medical student and made modificati ons to such information, when appropriate. I personally performed a physical exam, medical decision making and then discussed any differences between the notes and made revisions as necessary to create one note. Andres Santillan , 08/10/20 , 17:06 KADEN SHARMA MED STUDENT Aug 10, 2020 16:13 ANDRES SANTILLAN DO Aug 10, 2020 16:48
[2020-08-10] MEDS: inSUlin ASPART (NovoLOG) 1 UNIT/0.01 ML (CHARGE PER UNIT) SC SCH ×2 (16:57→21:00)
[2020-08-10] MEDS: DULoxetine 30 MG (CYMBALTA) CAP PO SCH (17:39)
[2020-08-10] MEDS ORDERED: BACLOFEN 10 MG (LIORESAL) TAB PO PRN (19:00)
[2020-08-10] MEDS ORDERED: BACLOFEN 10 MG (LIORESAL) TAB PO ONE (19:00)
[2020-08-10 21:00] VITALS: BP 133/77
[2020-08-10] MEDS: SENNOSIDES 8.6 MG (SENOKOT) TAB PO SCH (21:00)
[2020-08-10] MEDS: TAMSULOSIN 0.4 MG (FLOMAX) CAP PO SCH (21:53)
[2020-08-10] MEDS: LACTOBACILLUS ACIDOPHILUS (PROBIOTIC) CAPSULE PO SCH (21:53)
[2020-08-10] MEDS: meTOprolol TARTRATE 50 MG (LOPRESSOR) TAB PO SCH (21:53)
[2020-08-10] MEDS: QUEtiapine 25 MG (SEROquel) TAB IMMEDIATE RELEASE PO SCH (21:53)
[2020-08-10] MEDS: cloNIDine 0.1 MG (CATAPRES) TAB PO SCH (21:53)
[2020-08-10] MEDS: MELATONIN 10 MG TABLET PO SCH (21:54)
[2020-08-10] MEDS: GABAPENTIN 300 MG (NEURONTIN) CAP PO SCH (21:55)
[2020-08-10] MEDS: DAKIN'S 1/4 STRENGTH (0.125%) 473 ML BTL TOP SCH (21:56)
[2020-08-10] MEDS: COLLAGENASE 30 GM (SANTYL) TUBE TP SCH (21:57)
[2020-08-11] MEDS: ENOXAPARIN 40 MG/0.4 ML (LOVENOX) SYR SC SCH ×2 (01:40→14:48)
[2020-08-11 05:53] LABS: BASOPHILS # (AUTO) 0.1 10^3/uL (0.0-0.1); BASOPHILS % (AUTO) 0 % (0-10); EOSINOPHILS # (AUTO) 0.2 10^3/uL (0.0-0.3); EOSINOPHILS % (AUTO) 2 % (0-10); HEMATOCRIT 34 % (40-54); LYMPHOCYTES # (AUTO) 3.8 10^3/uL (1.0-4.0); LYMPHOCYTES % (AUTO) 32 % (12-44); MEAN CORPUSCULAR HEMOGLOBIN 27 pg (25-34); MEAN CORPUSCULAR HGB CONC 32 g/dL (32-36); MEAN CORPUSCULAR VOLUME 83 fL (80-99); MEAN PLATELET VOLUME 8.6 fL (9.0-12.2); MONOCYTES # (AUTO) 1.1 10^3/uL (0.0-1.0); MONOCYTES % (AUTO) 9 % (0-12); NEUTROPHILS # (AUTO) 6.8 10^3/uL (1.8-7.8); NEUTROPHILS % (AUTO) 57 % (42-75); PLATELET COUNT 435 10^3/uL (130-400)
[2020-08-11 05:59] VITALS: BP 128/91
[2020-08-11 06:07] LABS: ALBUMIN 3.7 GM/DL (3.2-4.5); CHLORIDE 100 MMOL/L (98-107); POTASSIUM 3.8 MMOL/L (3.6-5.0); SODIUM 134 MMOL/L (135-145)
[2020-08-11 06:08] LABS: CALCIUM 9.7 MG/DL (8.5-10.1)
[2020-08-11 06:10] LABS: GLUCOSE 124 MG/DL (70-105); TOTAL PROTEIN 6.6 GM/DL (6.4-8.2)
[2020-08-11 06:11] LABS: BILIRUBIN,TOTAL 0.6 MG/DL (0.1-1.0); CARBON DIOXIDE 21 MMOL/L (21-32)
[2020-08-11 06:13] LABS: ALKALINE PHOSPHATASE 117 U/L (40-136); CREATININE SERUM 0.67 MG/DL (0.60-1.30); GFR ESTIMATED > 60
--- NOTE | 2020-08-11 06:13 | Individualized Plan of Care ---
Individualized Plan of Care Rehab Nursing IPOC Order Admission Date Aug 10, 2020 at 11:20 Current Orders Orders Admission Order(Inpt,Obs,Sdc) (08/10/20 05:26) Vital Signs: Per Unit Policy ( ,16,00 (08/10/20 05:26) Ignacio Carmona (08/10/20 05:26) Sequential Compression Device .admit (08/10/20 05:26) Parcel Post Order Clerk-Inpt Rehab Con (08/10/20 05:26) Rehab Nursing Orders-Ipoc (08/10/20 05:26) Physical Therapy Rehab Orders (08/10/20 05:26) Occupational Therapy Rehab Ord (08/10/20 05:26) Speech Therapy Rehab Orders (08/10/20:) Cbc With Automated Diff (08/11/20 06:00) Comprehensive Metabolic Panel (08/11/20 06:00) Intake & Output 06,14,22 (08/10/20 05:26) Precautions (Aru) (08/10/20 05:26) Rehab-Intensity Of Therapy (08/10/20 05:26) Initiate Admission Nursing Pro .admission (08/10/20 05:26) Alprazolam Tablet (Xanax Tablet) (08/10/20 05:30) Calcium Carbonate Chew Tablet (Antacid C (08/10/20 05:30) Diphenhydramine Tablet (Benadryl Tablet) (08/10/20 05:30) Docusate Sodium Capsule (Colace Capsule) (08/10/20 09:00) Docusate Sodium Capsule (Colace Capsule) (08/10/20 05:30) Bisacodyl Suppository (Dulcolax Supposit (08/10/20 05:30) Lactulose Oral Solution (Enulose Oral So (08/10/20 05:30) Na Phos/Na Biphos Enema (Fleet Enema Ricky (08/10/20 05:30) Guaifenesin/Codeine Syrup (Robitussin Ac (08/10/20 05:30) Loperamide Tablet (Imodium Tablet) (08/10/20 05:30) Enoxaparin Injection (Lovenox Injection) (08/10/20 14:00) Melatonin Tablet (Melatonin Tablet) (08/10/20 05:30) Polyethylene Glycol Powder Pkt (Miralax (08/10/20 09:00) Ondansetron Oral Dissolve Tab (Zofran (08/10/20 05:30) Senna S Tablet (Senokot S Tablet) (08/10/20 09:00) Initiate Admission Nursing Pro .admission (08/10/20 05:26) Admission Arrival Bed Request (08/10/20 11:20) Acetaminophen Tablet/Caplet (Tylenol T (08/10/20 11:45) Consult General Surgery (08/10/20 11:43) Consult Wound Care Physician (08/10/20 11:43) Cbc With Automated Diff (08/10/20 11:43) Comprehensive Metabolic Panel (08/10/20 11:43) Lactic Acid Analyzer (08/10/20 11:43) Procalcitonin (Pct) (08/10/20 11:43) Cho 75g/M 3snack (21-2400 William) (08/10/20 Lunch) Manual Differential (08/10/20 12:30) Ascorbic Acid Tablet (Vitamin C Tablet) (08/11/20 09:00) Cholecalciferol Capsule/Tablet (Vitamin (08/11/20 09:00) Clonidine Tablet (Catapres Tablet) (08/10/20 21:00) Diltiazem Cd 24 Hr Capsule (Cardizem Cd (08/11/20 09:00) Duloxetine Capsule (Cymbalta Capsule) (08/10/20 18:00) Furosemide Tablet (Lasix Tablet) (08/11/20 09:00) Gabapentin Capsule/Tablet (Neurontin Cap (08/10/20 21:00) Albuterol/Ipra Inhalation Soln (Duoneb I (08/10/20 14:15) Lactobacillus Acidophilus Cap (Acidophil (08/10/20 21:00) Metoprolol Tartrate (Ir) Tab (Lopressor (08/10/20 21:00) Quetiapine Immediate Release (Seroquel I (08/10/20 21:00) Sennosides Tablet (Senokot Tablet) (08/10/20 21:00) Tamsulosin Capsule (Flomax Capsule) (08/10/20 21:00) (Nf) Balsam Mara/Chavies Oil (Venelex Oin (08/10/20 14:15) Duloxetine Capsule (Cymbalta Capsule) (08/11/20 09:00) Ibuprofen Tablet (Motrin Tablet) (08/10/20 14:30) Insulin Determir (Per Unit) (Levemir (Pe (08/10/20 21:00) Melatonin Tablet (Melatonin) (08/10/20 21:00) Therapeutic Multivitamin Tab (Vitamins, (08/11/20 07:00) Accucheck Achs ACHS (08/10/20 14:15) Insulin Aspart (Novolog) (Novolog (Charg (08/10/20 16:00) Patient Visit (08/10/20 ) Speech Sound Lang Comp (08/10/20 ) Oxycodone Immediate Rel Tablet (Oxyir Ta (08/10/20 15:00) Fentanyl Patch (Duragesic Patch) (08/10/20 15:00) Patient Visit (08/10/20 ) Pt Eval Moderate Complexity (08/10/20 ) Functional Activities, Ea 15 (08/10/20 ) Patient Visit (08/10/20 ) Functional Activities, Ea 15 (08/10/20 ) Collagenase Ointment (Santyl Ointment) (08/10/20 21:00) Sodium Hypochlorite 0.125% Edith (Dakin's (08/10/20 21:00) Dressing Order (Intervention) BID (08/10/20 17:12) Dressing Order (Intervention) BID (08/10/20 17:12) Glucerna (08/10/20 17:20) Baclofen Tablet (Lioresal Tablet) (08/10/20 19:00) Baclofen Tablet (Lioresal Tablet) (08/10/20 19:00) Consult Cardiology (08/11/20 10:48) Patient Visit (08/11/20 ) Exercise Therap, Ea 15 Min (08/11/20 ) Functional Activities, Ea 15 (08/11/20 ) Chest Pa/Lat (2 View) (08/11/20 16:15) Cbc No Diff (08/12/20 05:00) Comprehensive Metabolic Panel (08/12/20 05:00) Ua Culture If Indicated (08/11/20 22:50) Ekg-Prn For Chest Pain Or Rhyt (08/11/20 16:45) Rehab Nursing Orders: Ongoing Assess. of Cognitive Status, Ongoing Assess. of Function Status, Bladder Management, Bladder Scan, Bladder Training, Bowel Melinda gement, Bowel Training, Disease Management & Educaiton, DVT Prophylaxis, Fall Prevention, Fluid/Electrolyte/Nutrition Mgmt, Infection Prevention, Medication Management & Education, Management of Risks & Complications, Management of Skin Intergrity, Nutrition Management, Pain Management, Patient/Family Support, Safety Management Intensity of Therapy to be met Patient to be seen: Min.3h per day/5 of 7d PT IPOC Problem List: Activity Tolerance, Functional Strength, Safety, Balance, Gait, Transfer, Bed Mobility, ROM Treatment Plan: Continue Plan of Care Bed Mobility, Education, Functional Activity Héctor, Functional Strength, Group Therapy, Gait, Safety, Therapeutic Exercise, Transfers Treatment Duration: Aug 31, 2020 Frequency: Estimated Hrs Per Day: 1 hour per day OT IPOC Problems: Decreased Activ Tolerance, Decreased UE Strength, Dependent Trans fers, Edema, Impaired Bed Mobility, Impaired Coordination, Impaired Funct Balance, Impaired I ADL's, Impaired Self-Care Skills OT Treatment, Training and Edu: Yes Plan of Care: ADL Retraining, Caregiver Training, Concurrent Therapy, Functional Mobility, Group Exercise/Act as Ind, Orthotic Fitting/Training, UE Funct Exercise/Act, UE Neuromus Re-Ed/Coord, W/C Management Training Treatment Duration: Aug 31, 2020 Frequency: At least 5 of 7 days/Wk (IRF) Estimated Hrs Per Day: 1 hour per day (brina ortiz, see comments below.) ST IPOC Speech Therapy Treatment Plan: Discontinue ST Treatment Duration: Aug 10, 2020 Frequency: 1 time per week Estimated Hrs Per Day: .25 hour per day Parcel Post Order Clerk/Case Mgmt Parcel Post Order Clerk/Case Managemen: Discharge Planning Dietitian/Licensed Dispensing Optician Dietitian/Licensed Dispensing Optician to monitor nutritional status and make changes and/or recommendations as needed and work with speech pathology on dietary upgrades as the occur. Physician IPOC Medical Issues being managed closely and that require the 24 hour availability of a physician: Severe debility following COVID including decubitus ulcers and high risk for decompensation will require 24/7 physician supervision Medical Issues: Bowel/Bladder Function, DVT Prophylaxis, Falls Precautions, Fluid/Electrolyte/Nutrition Balance, Infection Protection, Pain Management Brief Synthesis of Preadmission Screen, Post-Admission Evaluation, and Therapy Evaluations: PT OT will focus on regaining function and ambulation in order to return to live in independent living Medical Prognosis: Good Anticipated Length of Stay: 21 days HEMANTH DODD DO Aug 11, 2020 06:13
--- NOTE | 2020-08-11 06:13 | PM&R Progress Note ---
Subjective HPI/CC On Admission Date Seen by Provider: Aug 11, 2020 Time Seen by Provider: 10:30 Subjective/Events-last exam 08/11/20: Patient doing well Decubitus ulcer managed by Dr Jacque Love lift Checked meds and labs Review of Systems General: Fatigue Focused Exam Lactate Level 08/10/20 12:30: Lactic Acid Level 1.57 Objective Exam Vital Signs Vital Signs Date Time Temp Pulse Resp B/P (MAP) Pulse Ox O2 Delivery O2 Flow Rate FiO2 08/12/20 05:18 36.2 108 18 98/50 (66) 94 Room Air Capillary Refill : General Appearance: No Apparent Distress, WD/WN, Chronically ill, Obese HEENT: PERRL/EOMI, Normal ENT Inspection, Pharynx Normal Neck: Full Range of Motion, Normal Inspection, Non Tender, Supple, Carotid Bruit Respiratory: Chest Non Tender, Lungs Clear, Normal Breath Sounds, No Accessory Muscle Use, No Respiratory Distress, Decreased Breath Sounds Cardiovascular: Regular Rate, Rhythm, No Gallop, No JVD, No Murmur, Normal Peripheral Pulses Gastrointestinal: Normal Bowel Sounds, No Organomegaly, No Pulsatile Mass, Non Tender, Soft Back: Normal Inspection, No CVA Tenderness, No Vertebral Tenderness Extremity: Normal Capillary Refill, Normal Inspection, Normal Range of Motion, Non Tender, No Calf Tenderness, Pedal Edema Neurologic/Psychiatric: Alert, Oriented x3, Normal Mood/Affect, Motor Weakness (2/5 all extremities) Skin: Normal Color, Warm/Dry Lymphatic: No Adenopathy Results/Procedures Lab Laboratory Tests 08/12/20 05:15 Patient resulted labs reviewed. FIM Transfers Therapy Code Descriptions/Definitions Functional [place] Measure: 0=Not Assessed/NA 4=Minimal Assistance 1=Total Assistance 5=Supervision or Setup 2=Maximal Assistance 6=Modified [place] 3=Moderate Assistance 7=Complete IndependenceSCALE: Activities may be completed with or without assistive devices. 9-Yjxqlpruts-pueywei completes the activity by him/herself with no assistance from a helper. 5-Set-up or Clean-up Assistance-helper sets up or cleans up; patient completes activity. [place] assists only prior to or following the activity. 4-Supervision or Touching Assistance-helper provides verbal cues and/or touching/steadying and/or contact guard assistance as patient completes activity. Assistance may be provided throughout the activity or intermittently. 3-Partial/Moderate Assistance-helper does LESS THAN HALF the effort. [place] lifts, holds or supports trunk or limbs, but provides less than half the effort. 2-Substantial/Maximal Assistance-helper does MORE THAN HALF the effort. [place] lifts or holds trunk or limbs and provides more than half the effort. 2-Npinpzuef-mppder does ALL the effort. Patient does none of the effort to complete the activity. Or, the assistance of 2 or more helpers is required for the patient to complete the activity. If activity was not attempted, code reason: 7-Patient Refused. 9-Not Applicable-not attempted and the patient did not perform the activity before the current illness, exacerbation or injury. 10-Not Attempted due to Environmental Limitations-(lack of equipment, weather restraints, etc.). 88-Not Attempted due to Medical Conditions or Safety Concerns. Roll Left to Right (QC): 3 Sit to Lying (QC): 1 Sit to Stand (QC): 88 Chair/Kgu-up-Hbeci Xfer(QC): 1 Car Transfer (QC): 1 Gait Training Does the Patient Walk?: No and Walking Goal NOT indicated Walk 10 feet (QC): 88 Walk 50 ft with 2 Turns(QC): 88 Walk 150 ft (QC): 88 Walking 10ft/uneven surface-QC: 88 Wheelchair Training Wheel 50 ft with 2 turns (QC): 1 Wheel 150 ft (QC): 1 Stair Training 1 Step (curb) (QC): 88 4 Steps (QC): 88 12 Steps (QC): 88 Balance Picking up an Object (QC): 88 ADL-Treatment Eating (QC): 3 (built up handle placed in hand, pt able to scoop food with SUP with RUE. Requires assist with drinking due to inability to extend fingers. Pt able to utilize passive extension of R hand (with use of cup) to grasp and bring to mouth. ) Oral Hygiene (QC): 3 (use of built up handle and s/u for toothpaste. Min A for this task.) Shower/Bathe Self (QC): 1 (TD due to Ax2. Completed in bed, rolling mod A side to side.) Upper Body Dressing (QC): 3 (mod A) Lower Body Dressing (QC): 1 (based on current abilities, will require Ax2 for donning/ doffing undergarments/ pants.) On/Off Footwear (QC): 1 (donning/ doffing with TD. pain noted during task due to hypersensitive feet.) Toileting Hygiene (QC): 1 (TD with Ax2. Completed in bed.Pt expresses contine nce of BM, though slight incontinence of urination since morley taken out. ) Assessment/Plan Assessment and Plan Assess & Plan/Chief Complaint Assessment:: Myopathy COVID-19 PNA 06/03/20 Hypoxia Morbid obesity HTN HLP Developmental delay/autism Decubitus ulcers coccyx and left knee Plan: Wound care IRF protocol Home meds Pain meds 08/11/20: Monitor closely Decubitus ulcer management (1) Myopathy (2) Pneumonia due to 2019 novel coronavirus Status: Acute (3) Morbid obesity Status: Chronic (4) Hypoxia Status: Acute (5) T2DM (type 2 diabetes mellitus) Status: Acute HEMANTH DODD DO Aug 11, 2020 06:13
[2020-08-11 06:14] LABS: BUN/CREATININE RATIO 39
[2020-08-11 06:16] LABS: ALANINE AMINOTRANSFERASE 27 U/L (0-55)
[2020-08-11] MEDS: MULTIVIT W/MINERALS TAB (THERAGRAN M) PO SCH (06:27)
[2020-08-11] MEDS: inSUlin ASPART (NovoLOG) 1 UNIT/0.01 ML (CHARGE PER UNIT) SC SCH ×4 (06:28→20:41)
--- NOTE | 2020-08-11 08:51 | Progress Note - Surgery ---
KADEN SHARMA MED STUDENT 08/11/20 0851: Subjective Date Seen by a Provider: Aug 11, 2020 Time Seen by a Provider: 07:45 Subjective/Events-last exam Pt is awake and lying in bed this morning. States he is only having some mild pain in R foot that is not new for him. Denies pain on sores of face, knee, and sacral area. States he is eating okay with no dysphagia, vomiting, or nausea. LBM was yesterday with no pain or blood noted. States that he has PT scheduled for later today. Has no complaints or concerns this morning. Nurse informs that dressing was changed twice last night due to dressing becoming saturated. States that it was still odorous. Review of Systems General: No Chills HEENT: No Head Aches, No Visual Changes, No Ear Pain, No Dysphasia Pulmonary: No Dyspnea, No Cough Cardiovascular: No: Chest Pain, Palpitations, Edema Gastrointestinal: No: Nausea, Vomiting, Abdominal Pain, Diarrhea, Constipation, Melena, Hematochezia Genitourinary: No Dysuria, No Hematuria Musculoskeletal: foot pain; No: leg pain Focused Exam Lactate Level 08/10/20 12:30: Lactic Acid Level 1.57 Objective Exam Vital Signs Date Time Temp Pulse Resp B/P (MAP) Pulse Ox O2 Delivery O2 Flow Rate FiO2 08/11/20 05:59 36.2 108 17 128/91 (103) 99 Room Air 08/10/20 21:00 125 133/77 (95) 08/10/20 21:00 97 Room Air 08/10/20 17:11 Room Air 08/10/20 16:00 37.1 110 16 123/71 (88) 100 08/10/20 11:10 36.6 131 18 133/89 (104) 95 Room Air I & O 08/11/20 07:00 Intake Total 1020 ml Balance 1020 ml Capillary Refill : General Appearance: No Apparent Distress, WD/WN, Chronically ill, Obese Respiratory: Chest Non Tender, Lungs Clear, Normal Breath Sounds, No Accessory Muscle Use, No Respiratory Distress Cardiovascular: Regular Rate, Rhythm, No Murmur, Normal Peripheral Pulses Peripheral Pulses: 2+ Radial Pulses (R), 2+ Radial Pulses (L) Gastrointestinal: non tender, soft, no organomegaly Extremity: Non Tender, No Calf Tenderness, No Pedal Edema, Other (Decubitus ulcer on L knee grade 3) Neurologic/Psychiatric: Alert, Oriented x3, Normal Mood/Affect, Motor Weakness (2/5 all extremities) Skin: Normal Color, Warm/Dry, Other (Sore on L side of Face. Decubitus Ulcer on L knee and over sacrum. Both are dressed. Ulcer in sacral area appears about the same as yesterday, odorous, grade 4.) Lymphatic: No Adenopathy Results Lab Laboratory Tests 08/10/20 12:30: White Blood Count 15.5H, Red Blood Count 4.22L, Hemoglobin 11.0L, Hematocrit 34L , Mean Corpuscular Volume 81, Mean Corpuscular Hemoglobin 26, Mean Corpuscular Hemoglobin Concent 32, Red Cell Distribution Width 14.6H, Platelet Count 498H, Mean Platelet Volume 8.6L, Immature Granulocyte % (Auto) 1, Neutrophils (%) (Auto) 70, Lymphocytes (%) (Auto) 21, Monocytes (%) (Auto) 8, Eosinophils (%) (Auto) 1, Basophils (%) (Auto) 0, Neutrophils # (Auto) 10.8H, Lymphocytes # (Auto) 3.2, Monocytes # (Auto) 1.3H, Eosinophils # (Auto) 0.2, Basophils # (Auto) 0.1, Immature Granulocyte # (Auto) 0.1, Neutrophils % (Manual) 66, Lymphocytes % (Manual) 25, Monocytes % (Manual) 6, Eosinophils % (Manual) 3, Band Neutrophils , Blood Morphology Comment NORMAL, Sodium Level 135, Potassium Level 4.9, Chloride Level 101, Carbon Dioxide Level 21, Anion Gap 13, Blood Urea Nitrogen 25H, Creatinine 0.64, Estimat Glomerular Filtration Rate > 60, BUN/Creatinine Ratio 39, Glucose Level 131H, Lactic Acid Level 1.57, Calcium Level 9.5, Corrected Calcium 9.7, Total Bilirubin 0.4, Aspartate Amino Transf (AST/SGOT) 35H, Alanine Aminotransferase (ALT/SGPT) 30, Alkaline Phosphatase 121, Total Protein 7.1, Albumin 3.7, Procalcitonin 0.05 08/10/20 15:41: Glucometer 139H 08/10/20 20:01: Glucometer 136H 08/11/20 05:00: White Blood Count 12.0H, Red Blood Count 4.14L, Hemoglobin 11.0L, Hematocrit 34L , Mean Corpuscular Volume 83, Mean Corpuscular Hemoglobin 27, Mean Corpuscular Hemoglobin Concent 32, Red Cell Distribution Width 14.6H, Platelet Count 435H, Mean Platelet Volume 8.6L, Immature Granulocyte % (Auto) 0, Neutrophils (%) (Aut o) 57, Lymphocytes (%) (Auto) 32, Monocytes (%) (Auto) 9, Eosinophils (%) (Auto) 2, Basophils (%) (Auto) 0, Neutrophils # (Auto) 6.8, Lymphocytes # (Auto) 3.8, Monocytes # (Auto) 1.1H, Eosinophils # (Auto) 0.2, Basophils # (Auto) 0.1, Immature Granulocyte # (Auto) 0.0, Sodium Level 134L, Potassium Level 3.8, Chloride Level 100, Carbon Dioxide Level 21, Anion Gap 13, Blood Urea Nitrogen 26H, Creatinine 0.67, Estimat Glomerular Filtration Rate > 60, BUN/Creatinine Ratio 39, Glucose Level 124H, Calcium Level 9.7, Corrected Calcium 9.9, Total Bilirubin 0.6, Aspartate Amino Transf (AST/SGOT) 19, Alanine Aminotransferase (ALT/SGPT) 27, Alkaline Phosphatase 117, Total Protein 6.6, Albumin 3.7 Assessment/Plan Assessment/Plan Assessment/Plan Decubitis Ulcer - Sacral, Knee, face Dakins solution on sacral ulcer - it is stage IV, no surgical intervention at this time; but may need debridement in the OR if it gets worse - will monitor Sanofyl on knee and Betadine on the facial scab DM - home meds and glucose checks 1. Decubitus Ulcer -Dakins solution used on sacral ulcer, dressing is frequently changed. -Continue daily observation in case surgical debreidment is necessary. -Chemical debriedment -Sanofyl used on knee, continue dressing wound -Betadine on facial scab 2. DM -Home meds -Glucose checks MARK SANTILLAN DO 08/11/20 1212: Subjective Time Seen by a Provider: 10:31 Subjective/Events-last exam Pt seen and examined, he is tired and weak; was actually sleeping when I saw him but easily arousable. Pt had no complaints this am. Review of Systems General: No Chills; Fatigue, Malaise HEENT: No Head Aches, No Visual Changes Pulmonary: No Dyspnea, No Cough Cardiovascular: No: Chest Pain, Palpitations, Edema Gastrointestinal: No: Nausea, Vomiting, Abdominal Pain Genitourinary: No Dysuria, No Hematuria Musculoskeletal: foot pain; No: leg pain Objective Exam General Appearance: No Apparent Distress, Chronically ill, Obese Respiratory: Chest Non Tender, Lungs Clear, Normal Breath Sounds, No Accessory Muscle Use, No Respiratory Distress Cardiovascular: Regular Rate, Rhythm, No Murmur Gastrointestinal: non tender, soft, no organomegaly Extremity: Non Tender, No Calf Tenderness, No Pedal Edema, Other (Decubitus ulcer on L knee grade 3) Neurologic/Psychiatric: Motor Weakness (2/5 all extremities) Skin: Other (Sore on L side of Face. Decubitus Ulcer on L knee and over sacrum. Both are dressed. Ulcer in sacral area appears about the same as yesterday, odorous, grade 4.) Assessment/Plan Assessment/Plan Assessment/Plan Decubitis Ulcer - Sacral, Knee, face Dakins solution on sacral ulcer - it is stage IV, no surgical intervention at this time; but may need debridement in the OR if it gets worse - will monitor Sanofyl on knee and Betadine on the facial scab DM - home meds and glucose checks Will reassess on Friday and may take him to the OR that day. Supervisory-Addendum Brief Verification & Attestation Participated in pt care: history, MDM, physical Personally performed: exam, history, MDM Care discussed with: Medical Student Procedures: n/a Verification and Attestation of Medical Student E/M Service A medical student performed and documented this service. I then reviewed and verified all information documented by the medical student and made modifications to such information, when appropriate. I personally performed a physical exam, medical decision making and then discussed any differences between the notes and made revisions as necessary to create one note. Mark Santillan , 08/11/20 , 12:12 KADEN SHARMA MED STUDENT Aug 11, 2020 08:51 MARK SANTILLAN DO Aug 11, 2020 12:12
[2020-08-11] MEDS ORDERED: FUROSEMIDE 40 MG (LASIX) TAB PO SCH (09:00)
--- NOTE | 2020-08-11 09:00 | Physical Therapy Daily Note ---
PT Daily Note-Current Subjective Patient in bed pre tx, agrees to PT, has unrated pain in bottom and both feet, will be co-treating with OT due to poor patient mobility, pain with activity, coordinate UE and LE during activity, safety and reduce risk of falls. Appearance Patient in bed post tx with nurse call, phone, tray, all needs met, OT to continue with tx for a while Mental Status Patient Orientation: Person, Place, Situation Transfers SCALE: Activities may be completed with or without assistive devices. 5-Xbdmjqlzzd-oazoogu completes the activity by him/herself with no assistance from a helper. 5-Set-up or Clean-up Assistance-helper sets up or cleans up; patient completes activity. [place] assists only prior to or following the activity. 4-Supervision or Touching Assistance-helper provides verbal cues and/or touching/steadying and/or contact guard assistance as patient completes activity. Assistance may be provided throughout the activity or intermittently. 3-Partial/Moderate Assistance-helper does LESS THAN HALF the effort. [place] lifts, holds or supports trunk or limbs, but provides less than half the effort. 2-Substantial/Maximal Assistance-helper does MORE THAN HALF the effort. [place] lifts or holds trunk or limbs and provides more than half the effort. 5-Novzusbbf-ljdbdi does ALL the effort. Patient does none of the effort to complete the activity. Or, the assistance of 2 or more helpers is required for the patient to complete the activity. If activity was not attempted, code reason: 7-Patient Refused. 9-Not Applicable-not attempted and the patient did not perform the activity before the current illness, exacerbation or injury. 10-Not Attempted due to Environmental Limitations-(lack of equipment, weather restraints, etc.). 88-Not Attempted due to Medical Conditions or Safety Concerns. Roll Left & Right (QC): 3 Sit to Lying (QC): 3 Lying to Sitting/Side of Bed(Q: 3 Sit to Stand (QC): 1 Chair/Dql-up-Xoewh Xfer(QC): 1 Min assist for supine to sit, mod assist for sit to supine, stood with standing machine and used that for a transfer to recliner. Used the same for the transfer back to bed. Exercises Seated Therapy Exercises: Long arc quads, Hip flexion Seated Reps: 20 Treatments PT worked on bed mobility, transfers, LE exercise, sitting balance and positioning during sitting and UE activity, OT worked on UE activity, assisted with transfer Assessment Current Status: Fair Progress Patient was able to manufacturing assembler the sit to stand machine for a couple of minutes the first time and stretch out his calves before needing to sit. PT Short Term Goals Short Term Goals Time Frame: Aug 17, 2020 Roll Left & Right: 4 Sit to lyin Lying to sitting on side of be: 2 Sit to stand: 1 Chair/sym-iw-pqsge transfer: 1 PT Juvenile Correctional Officer Goals Juvenile Correctional Officer Goals PT Juvenile Correctional Officer Goals Time Frame: Aug 31, 2020 Roll Left & Right (QC): 6 Sit to Lying (QC): 3 Lying-Sitting on Side/Bed(QC): 3 Sit to Stand (QC): 2 Chair/Qbd-ri-Chdbt Xfer(QC): 2 Toilet Transfer (QC): 2 Car Transfer (QC): 1 Does the Patient Walk: No and Walking Goal NOT indicated Walk 10 feet (QC): 88 Walk 50ft with 2 Turns (QC): 88 Walk 150 ft (QC): 88 Walking 10ft on Uneven Surface: 88 1 Step (curb) (QC): 88 4 Steps (QC): 88 12 Steps (QC): 88 Picking up an Object (QC): 88 Wheel 50 feet with 2 turns (QC: 3 Wheel 150 feet: 3 PT Plan Problem List Problem List: Activity Tolerance, Functional Strength, Safety, Balance, Gait, Transfer, Bed Mobility, ROM Treatment/Plan Treatment Plan: Continue Plan of Care Treatment Plan: Bed Mobility, Education, Functional Activity Héctor, Functional Strength, Group Therapy, Gait, Safety, Therapeutic Exercise, Transfers Treatment Duration: Aug 31, 2020 Frequency: Estimated Hrs Per Day: 1 hour per day Patient and/or Family Agrees t: Yes Safety Risks/Education Patient Education: Transfer Techniques, Correct Positioning, Safety Issues Teaching Recipient: Patient Teaching Methods: Demonstration, Discussion Response to Teaching: Reinforcement Needed Time/GCodes Time In: 0800 Time Out: 0900 Total Billed Treatment Time: 60 Total Billed Treatment 1 visit EX 15' FA 45' co-treated for 60' LYNDSAY PERRY PT Aug 11, 2020 09:00
--- NOTE | 2020-08-11 09:04 | Occupational Ther Daily Note ---
OT Current Status-Daily Note Subjective 5611-9504: Pt AxO upon entry. Agrees to tx. Pain in bottom, bilateral feet. OT/ PT co-treat this session with OT addressing UE movement/ strength, ADLs and PT addressing fx transfers, balance/ LE movement. [id number]: OT individual tx: Pt agrees to tx. States tired. Supine in bed. Mental Status/Objective Patient Orientation: Normal For Age ADL-Treatment Therapy Code Descriptions/Definitions Functional [place] Measure: 0=Not Assessed/NA 4=Minimal Assistance 1=Total Assistance 5=Supervision or Setup 2=Maximal Assistance 6=Modified [place] 3=Moderate Assistance 7=Complete IndependenceSCALE: Activities may be completed with or without assistive devices. 2-Njprrurnwy-aeopani completes the activity by him/herself with no assistance from a helper. 5-Set-up or Clean-up Assistance-helper sets up or cleans up; patient completes activity. [place] assists only prior to or following the activity. 4-Supervision or Touching Assistance-helper provides verbal cues and/or touching/steadying and/or contact guard assistance as patient completes activ ity. Assistance may be provided throughout the activity or intermittently. 3-Partial/Moderate Assistance-helper does LESS THAN HALF the effort. [place] lifts, holds or supports trunk or limbs, but provides less than half the effort. 2-Substantial/Maximal Assistance-helper does MORE THAN HALF the effort. [place] lifts or holds trunk or limbs and provides more than half the effort. 1-Qcccmhbpu-rrgatm does ALL the effort. Patient does none of the effort to complete the activity. Or, the assistance of 2 or more helpers is required for the patient to complete the activity. If activity was not attempted, code reason: 7-Patient Refused. 9-Not Applicable-not attempted and the patient did not perform the activity before the current illness, exacerbation or injury. 10-Not Attempted due to Environmental Limitations-(lack of equipment, weather restraints, etc.). 88-Not Attempted due to Medical Conditions or Safety Concerns. Eating (QC): 3 (SUP and min A for utensil placement.) Oral Hygiene (QC): 3 (min A for s/u and completion. Pt able to hold built up handle on toothbrush, bring to mouth after OT places toothpaste.) Shower/Bathe Self (QC): 7 Upper Body Dressing (QC): 7 Toileting Hygiene (QC): 7 Other Treatment [id number]: Pt completes bed mob with increased time/ PT assist. Pt states utilized sit to stand at [place] to complete transfers, use of towel as padding under L knee. Pt completes stance, c/o pain in bilateral feet. Transfer with TD. Pt sits in recliner to complete UE/ LE movement and strengthening ex. OT addresses fx home care associate/ pinch strength as follows: home care associate R: 19.3 lbs (use of R wrist brace for neutral position, avg upon 3 trials), L: 7 lbs (one trial, OT holds wrist in neutral); pinch: R: lateral: 11lbs, 3 jaw: 8 lbs; L: lateral: 6 lbs, 3 jaw: 3 lbs with fingers slipping from surface due to lack of control. Decreased L index finger activation. Pt completes PROM to all LUE from OT to full range. Pt unable to activate L bicep against gravity, able to stabilize L shoulder in flexion and complete minimal elbow flexion in gravity eliminated. Pt completes this 10x with rest break in between. Pt given home care associate sponge, completes ~20x each hand. Pt educated on use of estim for further activation of mms. Pt is brought back to bed with sit to stand and max Ax2 (TD). Once positioned, pt completes oral care as outlined in bed. All needs met, call light in reach. [id number]: Use of NMES to L bicep completed for 10 minutes. Unable to facilitate mm contraction, however, stimulates for pt to sense "tingle." This is the case for the following 2 positions as well. Use of PROM for bicep activation and manual techniques to decrease tricep activation. Pt completes AROM of biceps in grav eliminated plane 10x. PROM to sup/ pronators and completion of stimulation of L extensors for 10 minutes while OT completes PROM/ AAROM (gravity assisted) to L wrist extensors. No muscle activation. Removal of wrist cock up splint to R wrist to apply NMES to R wrist extensors for 10 min. Use of PROM/ mm stimulation and tactile cues and AAROM to RUE. Pt left in bed end of session with R splint donned and all needs met. Soft press call light within reach. Education OT Patient Education: Correct positioning, Disease process, Exercise program, Home exercise program, Modified ADL techniques, Purpose of tx/functional activities, Rehab process, Safety issues, Transfer techniques Teaching Recipient: Patient Teaching Methods: Demonstration, Discussion Response to Teaching: Verbalize Understanding, Return Demonstration, Reinforcement Needed OT Short Term Goals Short Term Goals Eatin Oral hygiene: 3 Toileting hygiene: 2 Shower/bathe self: 2 Upper body dressin Lower body dressin Putting on/taking off footwear: 2 OT Mcc Goals Mcc Goals Time Frame: Aug 31, 2020 Eating (QC): 6 Oral Hygiene (QC): 6 Toileting Hygiene (QC): 4 Shower/Bathe Self (QC): 4 Upper Body Dressing (QC): 6 Lower Body Dressing (QC): 4 On/Off Footwear (QC): 4 Additional Goals: 1-Demonstrate ADL Tasks, 2-Verbalize Understanding, 3- ImproveStrength/Héctor 1=Demonstrate adherence to instructed precautions during ADL tasks. 2=Patient will verbalize/demonstrate understanding of assistive devices/mod ifications for ADL. 3=Patient will improve strength/tolerance for activity to enable patient to perform ADL's. OT Education/Plan Problem List/Assessment Assessment: Decreased Activ Tolerance, Decreased UE Strength, Dependent Transfers, Edema, Impaired Bed Mobility, Impaired Coordination, Impaired Funct Balance, Impaired I ADL's, Impaired Self-Care Skills, Restricted Funct UE ROM Discharge Recommendations Plan/Recommendations: Continue POC Therapy Discharge Recommendati: Post Acute OT Treatment Plan/Plan of Care Treatment,Training & Education: Yes Patient would benefit from OT for education, treatment and training to promote independence in ADL's, mobility, safety and/or upper extremity function for ADL's. Plan of Care: ADL Retraining, Caregiver Training, Concurrent Therapy, Functional Mobility, Group Exercise/Act as Ind, Orthotic Fitting/Training, UE Funct Exercise/Act, UE Neuromus Re-Ed/Coord, W/C Management Training Treatment Duration: Aug 31, 2020 Frequency: At least 5 of 7 days/Wk (IRF) Estimated Hrs Per Day: 1 hour per day (brina ortiz, see comments below.) Agreement: Yes Rehab Potential: Fair Time/GCodes Start Time: 08:00 (1130) Stop Time: 09:00 (1200) Total Time Billed (hr/min): 90 Billed Treatment Time [id number]: OT/ PT co-treat this session with OT addressing UE movement/ strength, ADLs and PT addressing fx transfers, balance/ LE movement. 1, ADL, FA, EX 2= 60 [id number]: 1, ESMAN, MAN= 30 L[place]IS MADRID OTR Aug 11, 2020 09:04
[2020-08-11 09:28] VITALS: BP 109/70
[2020-08-11] MEDS: cloNIDine 0.1 MG (CATAPRES) TAB PO SCH ×2 (09:29→20:29)
[2020-08-11] MEDS: LACTOBACILLUS ACIDOPHILUS (PROBIOTIC) CAPSULE PO SCH ×2 (09:29→20:28)
[2020-08-11] MEDS: DULoxetine 30 MG (CYMBALTA) CAP PO SCH ×2 (09:30→18:41)
[2020-08-11] MEDS: SENNOSIDES 8.6 MG (SENOKOT) TAB PO SCH ×2 (09:30→20:29)
[2020-08-11] MEDS: DOCUSATE SODIUM 100 MG (COLACE) CAP PO SCH ×2 (09:30→20:28)
[2020-08-11] MEDS: VITAMIN D3 125 MCG (5,000 UNITS) CAPSULE PO SCH (09:31)
[2020-08-11] MEDS: ASCORBIC ACID (VIT C) 500 MG TABLET PO SCH (09:31)
[2020-08-11] MEDS: GABAPENTIN 300 MG (NEURONTIN) CAP PO SCH ×3 (09:31→20:28)
[2020-08-11] MEDS: meTOprolol TARTRATE 50 MG (LOPRESSOR) TAB PO SCH ×2 (09:31→20:28)
[2020-08-11] MEDS: polyethylene glycoL POWDER 17 GM (MIRALAX) PACK PO SCH ×2 (09:36→19:34)
[2020-08-11] MEDS: DAKIN'S 1/4 STRENGTH (0.125%) 473 ML BTL TOP SCH ×2 (09:36→20:30)
[2020-08-11] MEDS: COLLAGENASE 30 GM (SANTYL) TUBE TP SCH ×2 (09:36→20:30)
[2020-08-11] MEDS: SENNA W/DOCUSATE (SENOKOT S) TABLET PO SCH ×2 (09:37→19:34)
[2020-08-11 10:15] VITALS: BP_SYST 130
--- NOTE | 2020-08-11 11:24 | Physical Therapy Daily Note ---
PT Daily Note-Current Subjective Patient in bed pre tx, agrees to PT, has no complaints of pain but does have some foot sensitivity pain during exercises Appearance Patient in bed post tx with nurse call, phone, tray, all needs met. Mental Status Patient Orientation: Person, Place, Situation Transfers SCALE: Activities may be completed with or without assistive devices. 1-Iudcsfpnjk-ekksplo completes the activity by him/herself with no assistance from a helper. 5-Set-up or Clean-up Assistance-helper sets up or cleans up; patient completes activity. [place] assists only prior to or following the activity. 4-Supervision or Touching Assistance-helper provides verbal cues and/or touching/steadying and/or contact guard assistance as patient completes activity. Assistance may be provided throughout the activity or intermittently. 3-Partial/Moderate Assistance-helper does LESS THAN HALF the effort. [place] lifts, holds or supports trunk or limbs, but provides less than half the effort. 2-Substantial/Maximal Assistance-helper does MORE THAN HALF the effort. [place] lifts or holds trunk or limbs and provides more than half the effort. 1-Brlebhgbm-hdhjql does ALL the effort. Patient does none of the effort to complete the activity. Or, the assistance of 2 or more helpers is required for the patient to complete the activity. If activity was not attempted, code reason: 7-Patient Refused. 9-Not Applicable-not attempted and the patient did not perform the activity before the current illness, exacerbation or injury. 10-Not Attempted due to Environmental Limitations-(lack of equipment, weather restraints, etc.). 88-Not Attempted due to Medical Conditions or Safety Concerns. Exercises Supine Ex: Quad Set, Glut sets, Heel Slides, Short Arc Quads, Straight leg raise (AAROM), Hip abd/add Supine Reps: 20 Treatments LE exercise Assessment Current Status: Fair Progress still no dorisflexion PT Short Term Goals Short Term Goals Time Frame: Aug 17, 2020 Roll Left & Right: 4 Sit to lyin Lying to sitting on side of be: 2 Sit to stand: 1 Chair/kgv-mq-flcuy transfer: 1 PT Penitentiary Goals Penitentiary Goals PT Silk Screen Printer Machine Goals Time Frame: Aug 31, 2020 Roll Left & Right (QC): 6 Sit to Lying (QC): 3 Lying-Sitting on Side/Bed(QC): 3 Sit to Stand (QC): 2 Chair/Pcb-zm-Spiga Xfer(QC): 2 Toilet Transfer (QC): 2 Car Transfer (QC): 1 Does the Patient Walk: No and Walking Goal NOT indicated Walk 10 feet (QC): 88 Walk 50ft with 2 Turns (QC): 88 Walk 150 ft (QC): 88 Walking 10ft on Uneven Surface: 88 1 Step (curb) (QC): 88 4 Steps (QC): 88 12 Steps (QC): 88 Picking up an Object (QC): 88 Wheel 50 feet with 2 turns (QC: 3 Wheel 150 feet: 3 PT Plan Problem List Problem List: Activity Tolerance, Functional Strength, Safety, Balance, Gait, Transfer, Bed Mobility, ROM Treatment/Plan Treatment Plan: Continue Plan of Care Treatment Plan: Bed Mobility, Education, Functional Activity Héctor, Functional Strength, Group Therapy, Gait, Safety, Therapeutic Exercise, Transfers Treatment Duration: Aug 31, 2020 Frequency: Estimated Hrs Per Day: 1 hour per day Patient and/or Family Agrees t: Yes Safety Risks/Education Patient Education: Correct Positioning, Safety Issues Teaching Recipient: Patient Teaching Methods: Demonstration, Discussion Response to Teaching: Reinforcement Needed Time/GCodes Time In: 1105 Time Out: 1120 Total Billed Treatment Time: 15 Total Billed Treatment 1 visit EX LYNDSAY MANZANARES PT Aug 11, 2020 11:24
[2020-08-11 17:08] VITALS: BP 134/78
--- NOTE | 2020-08-11 17:13 | Diagnostic Imaging Report ---
INDICATION: Tachycardia. TECHNIQUE: Two view chest 4:57 PM CORRELATION STUDY: 07/06/2020 FINDINGS: Interval extubation and removal of the right IJ central line. Heart size and mediastinum are within normal limits. Vasculature is near normal at follow-up. Lung brown overall are generally clear without significant infiltrate. No definitive effusion or pneumothorax. IMPRESSION: 1. Interval extubation. Relatively negative appearance of the chest at follow-up. Dictated by: Dictated on workstation # [id number]
--- NOTE | 2020-08-11 17:27 | Consultation-Cardiology ---
HPI-Cardiology Cardiology Consultation Date of Consultation 08/11/20 Date of Admission Time Seen by Provider: 17:24 Indication: tachycardia HPI 34 years old gentleman with critical illness myopathy, had recent respiratory failure from COVID-19 pneumonia, failed multiple attempts for extubation and transferred to [place], after extubation he was transferred for acute rehabilitation, has been receiving rehabilitation. Noted to have tachycardia. I was called for consultation. He denied any previous cardiac history, no fever or chills. No cough or phlegm Home Medications & Allergies Allergies: Coded Allergies: No Known Drug Allergies (Unverified , 06/08/20) Home Medication List Reviewed: Yes KKI-Zguevh-Dxvixf Hx Patient Social History Marital Status: single Employed/Student: unemployed Smoking Status: Never a Smoker 2nd Hand Smoke Exposure: No Recent Hopitalizations: Yes (Recently released from [facility] following COVID infection. ) Have you traveled recently?: No Alcohol Use?: No Immunizations Up To Date Tetanus Booster (TDap): Unknown Date of Influenza Vaccine: Feb 21, 2020 Past Medical History Discussed below Family Medical History Significant Family History: Hypertension (mother), Other Conditions/Hx (Mother has MS) Family Medical Hx Noncontributory Review of Systems-General Review of Systems Constitutional: see HPI, malaise, weakness EENTM: No blurred vision, No vision loss, No mouth pain, No mouth swelling, No epistaxis Respiratory: dyspnea on exertion Cardiovascular: No chest pain, No edema, No palpitations Gastrointestinal: No abdominal pain, No diarrhea, No melena, No nausea, No vomiting Genitourinary: No dysuria, No hematuria Musculoskeletal: back pain, joint pain Skin: see HPI Psychiatric/Neurological: Anxiety, Depressed Reviewed Test Results Reviewed Test Results Lab Laboratory Tests Test 08/10/20 20:01 08/11/20 05:00 08/11/20 11:17 08/11/20 16:18 Range/Units Glucometer 136 H 129 H 144 H 70-110 MG/DL White Blood Count 12.0 H 4.3-11.0 10^3/uL Red Blood Count 4.14 L 4.30-5.52 10^6/uL Hemoglobin 11.0 L 13.3-17.7 g/dL Hematocrit 34 L 40-54 % Mean Corpuscular Volume 83 80-99 fL Mean Corpuscular Hemoglobin 27 25-34 pg Mean Corpuscular Hemoglobin Concent 32 32-36 g/dL Red Cell Distribution Width 14.6 H 10.0-14.5 % Platelet Count 435 H 130-400 10^3/uL Mean Platelet Volume 8.6 L 9.0-12.2 fL Immature Granulocyte % (Auto) 0 % Neutrophils (%) (Auto) 57 42-75 % Lymphocytes (%) (Auto) 32 12-44 % Monocytes (%) (Auto) 9 0-12 % Eosinophils (%) (Auto) 2 0-10 % Basophils (%) (Auto) 0 0-10 % Neutrophils # (Auto) 6.8 1.8-7.8 10^3/uL Lymphocytes # (Auto) 3.8 1.0-4.0 10^3/uL Monocytes # (Auto) 1.1 H 0.0-1.0 10^3/uL Eosinophils # (Auto) 0.2 0.0-0.3 10^3/uL Basophils # (Auto) 0.1 0.0-0.1 10^3/uL Immature Granulocyte # (Auto) 0.0 0.0-0.1 10^3/uL Sodium Level 134 L 135-145 MMOL/L Potassium Level 3.8 3.6-5.0 MMOL/L Chloride Level 100 98-107 MMOL/L Carbon Dioxide Level 21 21-32 MMOL/L Anion Gap 13 5-14 MMOL/L Blood Urea Nitrogen 26 H 7-18 MG/DL Creatinine 0.67 0.60-1.30 MG/DL Estimat Glomerular Filtration Rate > 60 BUN/Creatinine Ratio 39 Glucose Level 124 H 70-105 MG/DL Calcium Level 9.7 8.5-10.1 MG/DL Corrected Calcium 9.9 8.5-10.1 MG/DL Total Bilirubin 0.6 0.1-1.0 MG/DL Aspartate Amino Transf (AST/SGOT) 19 5-34 U/L Alanine Aminotransferase (ALT/SGPT) 27 0-55 U/L Alkaline Phosphatase 117 40-136 U/L Total Protein 6.6 6.4-8.2 GM/DL Albumin 3.7 3.2-4.5 GM/DL Physical Exam Physical Exam Vital Signs Vital Signs - First Documented 08/10/20 11:10 Temp 36.6 Pulse 131 Resp 18 B/P (MAP) 133/89 (104) Pulse Ox 95 O2 Delivery Room Air Capillary Refill : Height, Weight, BMI Height: 6'0.00" Weight: 360lbs. 0.0oz. [id number]; 40.80 BMI Method: General Appearance: No Apparent Distress, Chronically ill, Obese Eyes: Bilateral Eye Normal Inspection, Bilateral Eye PERRL, Bilateral Eye EOMI Respiratory: Chest Non Tender, Lungs Clear, Normal Breath Sounds, No Accessory Muscle Use, No Respiratory Distress Cardiovascular: Regular Rate, Rhythm, No Murmur Gastrointestinal: Normal Bowel Sounds, No Organomegaly, No Pulsatile Mass, Non Tender, Soft Back: Normal Inspection, No CVA Tenderness, No Vertebral Tenderness Extremity: Non Tender, No Calf Tenderness, No Pedal Edema, Other (Decubitus ulcer on L knee grade 3) Neurologic/Psychiatric: Motor Weakness (2/5 all extremities) Skin: Other (Sore on L side of Face. Decubitus Ulcer on L knee and over sacrum. Both are dressed. Ulcer in sacral area appears about the same as yesterday, odorous, grade 4.) Lymphatic: No Adenopathy A/P-Cardiology Admission Diagnosis Sinus tachycardia Hypertension Hyperlipidemia Diabetes mellitus Assessment/Plan Sinus tachycardia, unknown underlying cause. Will evaluate CBC and CMP, chest x-ray and urine analysis, rule out underlying infection. Critical illness myopathy, receiving physical therapy, managed by primary care team Decubitus ulcers, managed by primary care team Hypertension, monitor blood pressure Hyperlipidemia, monitor lipids Diabetes mellitus, followed and managed by primary care physician Patient is maintained on Lovenox for DVT prophylaxis ERIN NG MD Aug 11, 2020 17:27
[2020-08-11] MEDS: TAMSULOSIN 0.4 MG (FLOMAX) CAP PO SCH (20:28)
[2020-08-11] MEDS: QUEtiapine 25 MG (SEROquel) TAB IMMEDIATE RELEASE PO SCH (20:29)
[2020-08-11] MEDS: MELATONIN 10 MG TABLET PO SCH (20:29)
[2020-08-11 23:03] LABS: BILIRUBIN,URINE NEGATIVE (NEGATIVE); CLARITY,URINE SL CLOUDY; GLUCOSE, URINE (UA) NEGATIVE (NEGATIVE); KETONES,URINE NEGATIVE (NEGATIVE); LEUKOCYTE ESTERASE ,URINE NEGATIVE (NEGATIVE); NITRITE,URINE NEGATIVE (NEGATIVE); PROTEIN,URINE NEGATIVE (NEGATIVE)
[2020-08-11 23:08] LABS: COLOR,URINE YELLOW
[2020-08-11 23:10] LABS: BACTERIA,URINE TRACE /HPF; SQUAMOUS EPITHELIAL CELL,UR 0-2 /HPF
[2020-08-11 23:11] LABS: CALCIUM OXALATE CRYSTALS,UR RARE /LPF
[2020-08-12] MEDS: ENOXAPARIN 40 MG/0.4 ML (LOVENOX) SYR SC SCH ×2 (02:46→14:12)
[2020-08-12 05:18] VITALS: BP 98/50
[2020-08-12 05:48] LABS: HEMOGLOBIN 10.3 g/dL (13.3-17.7); MEAN PLATELET VOLUME 8.5 fL (9.0-12.2); WHITE BLOOD COUNT 9.2 10^3/uL (4.3-11.0)
[2020-08-12 05:59] LABS: ALBUMIN 3.5 GM/DL (3.2-4.5); CHLORIDE 100 MMOL/L (98-107); POTASSIUM 3.9 MMOL/L (3.6-5.0); SODIUM 135 MMOL/L (135-145)
[2020-08-12 06:00] LABS: CALCIUM 9.7 MG/DL (8.5-10.1)
[2020-08-12 06:02] LABS: GLUCOSE 121 MG/DL (70-105); TOTAL PROTEIN 6.5 GM/DL (6.4-8.2)
[2020-08-12 06:03] LABS: BILIRUBIN,TOTAL 0.5 MG/DL (0.1-1.0); CARBON DIOXIDE 22 MMOL/L (21-32)
[2020-08-12 06:05] LABS: ALKALINE PHOSPHATASE 116 U/L (40-136); CREATININE SERUM 0.61 MG/DL (0.60-1.30); GFR ESTIMATED > 60
[2020-08-12 06:06] LABS: BUN/CREATININE RATIO 43
[2020-08-12 06:08] LABS: ALANINE AMINOTRANSFERASE 27 U/L (0-55)
[2020-08-12] MEDS: inSUlin ASPART (NovoLOG) 1 UNIT/0.01 ML (CHARGE PER UNIT) SC SCH ×4 (06:26→22:07)
[2020-08-12] MEDS: MULTIVIT W/MINERALS TAB (THERAGRAN M) PO SCH (06:43)
[2020-08-12 08:48] VITALS: BP 132/79
[2020-08-12] MEDS: LACTOBACILLUS ACIDOPHILUS (PROBIOTIC) CAPSULE PO SCH ×2 (08:49→21:21)
[2020-08-12] MEDS: GABAPENTIN 300 MG (NEURONTIN) CAP PO SCH ×3 (08:50→21:21)
[2020-08-12] MEDS: meTOprolol TARTRATE 50 MG (LOPRESSOR) TAB PO SCH ×2 (08:50→21:21)
[2020-08-12] MEDS: cloNIDine 0.1 MG (CATAPRES) TAB PO SCH ×2 (08:50→21:21)
[2020-08-12] MEDS: VITAMIN D3 125 MCG (5,000 UNITS) CAPSULE PO SCH (08:50)
[2020-08-12] MEDS: SENNOSIDES 8.6 MG (SENOKOT) TAB PO SCH ×2 (08:50→21:21)
[2020-08-12] MEDS: ASCORBIC ACID (VIT C) 500 MG TABLET PO SCH (08:50)
[2020-08-12] MEDS: DULoxetine 30 MG (CYMBALTA) CAP PO SCH ×2 (08:50→18:21)
[2020-08-12] MEDS: DOCUSATE SODIUM 100 MG (COLACE) CAP PO SCH ×2 (08:50→21:21)
[2020-08-12] MEDS: DAKIN'S 1/4 STRENGTH (0.125%) 473 ML BTL TOP SCH ×2 (09:03→21:23)
[2020-08-12] MEDS: SENNA W/DOCUSATE (SENOKOT S) TABLET PO SCH ×2 (09:03→19:13)
[2020-08-12] MEDS: COLLAGENASE 30 GM (SANTYL) TUBE TP SCH ×2 (09:03→21:23)
--- NOTE | 2020-08-12 09:44 | Physical Therapy Daily Note ---
PT Daily Note-Current Subjective Pt laying Supine in bed upon arrival. Nurse present and giving morning meds. Pt asks to turn to L sidelying, PT asks to complete Ex then will turn. Pain Numeric Pain Scale: 5-Moderate Pain Location: Right Location Body Site: Foot Pain Description: Ache, Tingling Mental Status Patient Orientation: Person, Place, Situation Attachments: Other-See Comments (R wrist splint) Transfers SCALE: Activities may be completed with or without assistive devices. 1-Emyvktiqzr-fakjoog completes the activity by him/herself with no assistance from a helper. 5-Set-up or Clean-up Assistance-helper sets up or cleans up; patient completes activity. [place] assists only prior to or following the activity. 4-Supervision or Touching Assistance-helper provides verbal cues and/or touching/steadying and/or contact guard assistance as patient completes activity. Assistance may be provided throughout the activity or intermittently. 3-Partial/Moderate Assistance-helper does LESS THAN HALF the effort. [place] lifts, holds or supports trunk or limbs, but provides less than half the effort. 2-Substantial/Maximal Assistance-helper does MORE THAN HALF the effort. [place] lifts or holds trunk or limbs and provides more than half the effort. 0-Lxhnqxkzz-dhcfui does ALL the effort. Patient does none of the effort to complete the activity. Or, the assistance of 2 or more helpers is required for the patient to complete the activity. If activity was not attempted, code reason: 7-Patient Refused. 9-Not Applicable-not attempted and the patient did not perform the activity before the current illness, exacerbation or injury. 10-Not Attempted due to Environmental Limitations-(lack of equipment, weather restraints, etc.). 88-Not Attempted due to Medical Conditions or Safety Concerns. Roll Left & Right (QC): 4 Exercises Supine Ex: Ankle pumps (AAROM until discomfort sets in), Quad Set, Glut sets, Heel Slides, Straight leg raise, Hip abd/add Supine Reps: 10 Treatments Pt completes Supine EX with several RB as needed for discomfort. PACKAGE CLERK assists with readjusting wrist splint and turning to L sidelying. All needs met, call light in hand. Assessment Current Status: Fair Progress Pt is limited by pain and strength at this time. PT Short Term Goals Short Term Goals Time Frame: Aug 17, 2020 Roll Left & Right: 4 Sit to lyin Lying to sitting on side of be: 2 Sit to stand: 1 Chair/ztk-hr-vgivo transfer: 1 PT Chronometer Tester Goals Residential Goals PT Residential Goals Time Frame: Aug 31, 2020 Roll Left & Right (QC): 6 Sit to Lying (QC): 3 Lying-Sitting on Side/Bed(QC): 3 Sit to Stand (QC): 2 Chair/Hyp-ur-Lcyfh Xfer(QC): 2 Toilet Transfer (QC): 2 Car Transfer (QC): 1 Does the Patient Walk: No and Walking Goal NOT indicated Walk 10 feet (QC): 88 Walk 50ft with 2 Turns (QC): 88 Walk 150 ft (QC): 88 Walking 10ft on Uneven Surface: 88 1 Step (curb) (QC): 88 4 Steps (QC): 88 12 Steps (QC): 88 Picking up an Object (QC): 88 Wheel 50 feet with 2 turns (QC: 3 Wheel 150 feet: 3 PT Plan Problem List Problem List: Activity Tolerance, Functional Strength, ROM Treatment/Plan Treatment Plan: Continue Plan of Care Treatment Plan: Bed Mobility, Education, Functional Activity Héctor, Functional Strength, Group Therapy, Gait, Safety, Therapeutic Exercise, Transfers Treatment Duration: Aug 31, 2020 Frequency: Estimated Hrs Per Day: 1 hour per day Patient and/or Family Agrees t: Yes Safety Risks/Education Patient Education: Correct Positioning, Disease Process, Safety Issues Teaching Recipient: Patient Teaching Methods: Discussion Response to Teaching: Verbalize Understanding Time/GCodes Time In: 900 Time Out: 935 Total Billed Treatment Time: 35 Total Billed Treatment 1, FA (15m) & EX (20m) AUBREE ÁLVAREZ PTA Aug 12, 2020 09:44
[2020-08-12] MEDS: polyethylene glycoL POWDER 17 GM (MIRALAX) PACK PO SCH ×2 (09:56→19:13)
--- NOTE | 2020-08-12 10:45 | Cardiology Progress Note ---
Subjective Date Seen by Provider: Aug 12, 2020 Time Seen by Provider: 10:44 Subjective/Events-last exam Patient was seen at bedside, laying down comfortably, no complaint Review of Systems General: No Chills, No Night Sweats; Fatigue, Malaise; No Appetite, No Other HEENT: No Head Aches, No Visual Changes, No Eye Pain, No Ear Pain, No Dysphasia, No Sinus Congestion, No Post Nasal Drip, No Sore Throat, No Other Pulmonary: No Dyspnea, No Cough, No Pleuritic Chest Pain, No Other Cardiovascular: Edema; No: Chest Pain, Palpitations, Orthopnea, Paroxysmal Noc. Dyspnea, Lt Headedness, Other Focused Exam Lactate Level 08/10/20 12:30: Lactic Acid Level 1.57 Objective-Cardiology Exam Last Set of Vital Signs Vital Signs 08/12/20 08/12/20 08/12/20 05:18 08:48 09:29 Temp 36.2 Pulse 113 Resp 18 B/P (MAP) 132/79 (96) Pulse Ox 94 O2 Delivery Room Air Capillary Refill : I&O Intake and Output 08/12/20 00:00 Intake Total 1597 ml Output Total 900 ml Balance 697 ml Intake Oral 1597 ml Output Urine Total 900 ml # Voids 1 General: Alert, Oriented X3, Cooperative HEENT: Atraumatic, PERRLA Neck: Supple, No JVD, No Thyromegaly Lungs: Clear to Auscultation, Normal Air Movement Heart: Regular Rate, Normal S1, Normal S2, No Murmurs Abdomen: Normal Bowel Sounds, Soft, No Tenderness, No Hepatosplenomegaly, No Masses Extremities: No Clubbing, No Cyanosis, No Edema, Normal Pulses, No Tenderness/Swelling Skin: No Rashes, No Breakdown, No Significant Lesion Neuro: Normal Speech Psych/Mental Status: Mental Status NL, Other (depressed mood) Results Lab Laboratory Tests 08/12/20 05:15 A/P-Cardiology Admission Diagnosis Sinus tachycardia Hypertension Hyperlipidemia Diabetes mellitus Assessment/Plan Sinus tachycardia, probably due to hypovolemia, I will hold Lasix, encouraged increasing fluid intake. Continue to monitor Critical illness myopathy, receiving physical therapy, managed by primary care team Decubitus ulcers, managed by primary care team Hypertension, monitor blood pressure Hyperlipidemia, monitor lipids Diabetes mellitus, followed and managed by primary care physician Patient is maintained on Lovenox for DVT prophylaxis ERIN NG MD Aug 12, 2020 10:45 am
--- NOTE | 2020-08-12 12:20 | PM&R Progress Note ---
Subjective HPI/CC On Admission Date Seen by Provider: Aug 12, 2020 Time Seen by Provider: 12:30 Subjective/Events-last exam 08/12/20: Patient doing better Neuropathy of feet an issue so we discussed it Fentanyl and Oxycodone and Gabapentin BM+ 08/1008/11/20: Patient doing well Decubitus ulcer managed by Dr Jacque Love lift Checked meds and labs Review of Systems General: Fatigue Neurological: Weakness, Incoordination Focused Exam Lactate Level 08/10/20 12:30: Lactic Acid Level 1.57 Objective Exam Vital Signs Vital Signs Date Time Temp Pulse Resp B/P (MAP) Pulse Ox O2 Delivery O2 Flow Rate FiO2 08/12/20 18:31 Room Air 08/12/20 17:33 36.1 103 18 122/63 (82) 96 Capillary Refill : General Appearance: No Apparent Distress, WD/WN, Chronically ill, Obese HEENT: PERRL/EOMI, Normal ENT Inspection, Pharynx Normal Neck: Full Range of Motion, Normal Inspection, Non Tender, Supple, Carotid Bruit Respiratory: Chest Non Tender, Lungs Clear, Normal Breath Sounds, No Accessory Muscle Use, No Respiratory Distress, Decreased Breath Sounds Cardiovascular: Regular Rate, Rhythm, No Gallop, No JVD, No Murmur, Normal Peripheral Pulses Gastrointestinal: Normal Bowel Sounds, No Organomegaly, No Pulsatile Mass, Non Tender, Soft Back: Normal Inspection, No CVA Tenderness, No Vertebral Tenderness Extremity: Normal Capillary Refill, Normal Inspection, Normal Range of Motion, Non Tender, No Calf Tenderness, Pedal Edema Neurologic/Psychiatric: Alert, Oriented x3, Normal Mood/Affect, Motor Weakness (2/5 all extremities) Skin: Normal Color, Warm/Dry Lymphatic: No Adenopathy Results/Procedures Lab Laboratory Tests 08/12/20 05:15 Patient resulted labs reviewed. FIM Transfers Therapy Code Descriptions/Definitions Functional [place] Measure: 0=Not Assessed/NA 4=Minimal Assistance 1=Total Assistance 5=Supervision or Setup 2=Maximal Assistance 6=Modified [place] 3=Moderate Assistance 7=Complete IndependenceSCALE: Activities may be completed with or without assistive devices. 8-Rmjquqeome-kkqnenk completes the activity by him/herself with no assistance from a helper. 5-Set-up or Clean-up Assistance-helper sets up or cleans up; patient completes activity. [place] assists only prior to or following the activity. 4-Supervision or Touching Assistance-helper provides verbal cues and/or touching/steadying and/or contact guard assistance as patient completes activity. Assistance may be provided throughout the activity or intermittently. 3-Partial/Moderate Assistance-helper does LESS THAN HALF the effort. [place] l ifts, holds or supports trunk or limbs, but provides less than half the effort. 2-Substantial/Maximal Assistance-helper does MORE THAN HALF the effort. [place] lifts or holds trunk or limbs and provides more than half the effort. 6-Uwkaecbyq-mbzbul does ALL the effort. Patient does none of the effort to complete the activity. Or, the assistance of 2 or more helpers is required for the patient to complete the activity. If activity was not attempted, code reason: 7-Patient Refused. 9-Not Applicable-not attempted and the patient did not perform the activity before the current illness, exacerbation or injury. 10-Not Attempted due to Environmental Limitations-(lack of equipment, weather restraints, etc.). 88-Not Attempted due to Medical Conditions or Safety Concerns. Roll Left to Right (QC): 4 Sit to Lying (QC): 3 Sit to Stand (QC): 1 Chair/Wbt-dr-Lokkd Xfer(QC): 1 Car Transfer (QC): 1 Gait Training Does the Patient Walk?: No and Walking Goal NOT indicated Walk 10 feet (QC): 88 Walk 50 ft with 2 Turns(QC): 88 Walk 150 ft (QC): 88 Walking 10ft/uneven surface-QC: 88 Wheelchair Training Wheel 50 ft with 2 turns (QC): 1 Wheel 150 ft (QC): 1 Stair Training 1 Step (curb) (QC): 88 4 Steps (QC): 88 12 Steps (QC): 88 Balance Picking up an Object (QC): 88 ADL-Treatment Eating (QC): 3 (SUP and min A for utensil placement.) Oral Hygiene (QC): 3 (min A for s/u and completion. Pt able to hold built up handle on toothbrush, bring to mouth after OT places toothpaste.) Shower/Bathe Self (QC): 7 Upper Body Dressing (QC): 7 Lower Body Dressing (QC): 1 (based on current abilities, will require Ax2 for donning/ doffing undergarments/ pants.) On/Off Footwear (QC): 1 (donning/ doffing with TD. pain noted during task due to hypersensitive feet.) Toileting Hygiene (QC): 7 Assessment/Plan Assessment and Plan Assess & Plan/Chief Complaint Assessment:: Myopathy COVID-19 PNA 06/03/20 Hypoxia Morbid obesity HTN HLP Developmental delay/autism Decubitus ulcers coccyx and left knee Tachycardia consulted Dr Jo-Ann de la rosa hypovolemia so started IVF Plan: Wound care IRF protocol Home meds Pain meds 08/11/20: Monitor closely Decubitus ulcer management 08/12/20: Monitor closely IVF NS Monitor tachycardia Supportive care (1) Myopathy (2) Pneumonia due to 2019 novel coronavirus Status: Acute (3) Morbid obesity Status: Chronic (4) Hypoxia Status: Acute (5) T2DM (type 2 diabetes mellitus) Status: Acute HEMANTH DODD DO Aug 12, 2020 12:20
[2020-08-12] MEDS: NS IV 1000 ML 1,000 ML IV SCH (13:57)
[2020-08-12 17:33] VITALS: BP 122/63
[2020-08-12] MEDS: TAMSULOSIN 0.4 MG (FLOMAX) CAP PO SCH (21:21)
[2020-08-12] MEDS: MELATONIN 10 MG TABLET PO SCH (21:21)
[2020-08-12] MEDS: QUEtiapine 25 MG (SEROquel) TAB IMMEDIATE RELEASE PO SCH (21:21)
[2020-08-13] MEDS: NS IV 1000 ML 1,000 ML IV SCH ×3 (03:17→15:12)
[2020-08-13] MEDS: ENOXAPARIN 40 MG/0.4 ML (LOVENOX) SYR SC SCH ×2 (03:19→14:55)
[2020-08-13] MEDS: MULTIVIT W/MINERALS TAB (THERAGRAN M) PO SCH (05:43)
[2020-08-13] MEDS: inSUlin ASPART (NovoLOG) 1 UNIT/0.01 ML (CHARGE PER UNIT) SC SCH ×4 (05:48→20:03)
[2020-08-13 05:49] VITALS: BP 138/86
[2020-08-13] MEDS: DULoxetine 30 MG (CYMBALTA) CAP PO SCH ×2 (08:28→18:13)
[2020-08-13] MEDS: LACTOBACILLUS ACIDOPHILUS (PROBIOTIC) CAPSULE PO SCH ×2 (08:28→20:44)
[2020-08-13] MEDS: VITAMIN D3 125 MCG (5,000 UNITS) CAPSULE PO SCH (08:28)
[2020-08-13] MEDS: GABAPENTIN 300 MG (NEURONTIN) CAP PO SCH ×3 (08:28→20:44)
[2020-08-13] MEDS: DOCUSATE SODIUM 100 MG (COLACE) CAP PO SCH ×2 (08:28→20:44)
[2020-08-13] MEDS: ASCORBIC ACID (VIT C) 500 MG TABLET PO SCH (08:28)
[2020-08-13] MEDS: SENNOSIDES 8.6 MG (SENOKOT) TAB PO SCH ×2 (08:28→20:21)
[2020-08-13] MEDS: SENNA W/DOCUSATE (SENOKOT S) TABLET PO SCH ×2 (08:28→20:44)
[2020-08-13] MEDS: polyethylene glycoL POWDER 17 GM (MIRALAX) PACK PO SCH ×2 (08:28→19:13)
[2020-08-13] MEDS: meTOprolol TARTRATE 50 MG (LOPRESSOR) TAB PO SCH ×2 (08:28→20:44)
[2020-08-13] MEDS: cloNIDine 0.1 MG (CATAPRES) TAB PO SCH ×2 (08:28→20:44)
[2020-08-13 08:29] VITALS: BP 133/70
[2020-08-13] MEDS: DAKIN'S 1/4 STRENGTH (0.125%) 473 ML BTL TOP SCH ×2 (10:30→20:44)
[2020-08-13] MEDS: COLLAGENASE 30 GM (SANTYL) TUBE TP SCH ×2 (10:30→20:44)
--- NOTE | 2020-08-13 12:00 | PM&R Progress Note ---
Subjective HPI/CC On Admission Date Seen by Provider: Aug 13, 2020 Time Seen by Provider: 12:10 Subjective/Events-last exam 08/13/20: Patient doing well Apathy Patient states he is homesick BM large today IVF maintained 08/12/20: Patient doing better Neuropathy of feet an issue so we discussed it Fentanyl and Oxycodone and Gabapentin BM+ 08/1008/11/20: Patient doing well Decubitus ulcer managed by Dr Jacque Love lift Checked meds and labs Review of Systems General: Fatigue, Malaise Neurological: Weakness Focused Exam Lactate Level Objective Exam Vital Signs Vital Signs Date Time Temp Pulse Resp B/P (MAP) Pulse Ox O2 Delivery O2 Flow Rate FiO2 08/13/20 18:43 93 Room Air 08/13/20 17:00 36.1 108 18 127/77 (94) Capillary Refill : General Appearance: No Apparent Distress, WD/WN, Chronically ill, Obese HEENT: PERRL/EOMI, Normal ENT Inspection, Pharynx Normal Neck: Full Range of Motion, Normal Inspection, Non Tender, Supple, Carotid Bruit Respiratory: Chest Non Tender, Lungs Clear, Normal Breath Sounds, No Accessory Muscle Use, No Respiratory Distress, Decreased Breath Sounds Cardiovascular: Regular Rate, Rhythm, No Gallop, No JVD, No Murmur, Normal Peripheral Pulses Gastrointestinal: Normal Bowel Sounds, No Organomegaly, No Pulsatile Mass, Non Tender, Soft Back: Normal Inspection, No CVA Tenderness, No Vertebral Tenderness Extremity: Normal Capillary Refill, Normal Inspection, Normal Range of Motion, Non Tender, No Calf Tenderness, Pedal Edema Neurologic/Psychiatric: Alert, Oriented x3, Normal Mood/Affect, Motor Weakness (2/5 all extremities) Skin: Normal Color, Warm/Dry Lymphatic: No Adenopathy Results/Procedures Lab Patient resulted labs reviewed. FIM Transfers Therapy Code Descriptions/Definitions Functional [place] Measure: 0=Not Assessed/NA 4=Minimal Assistance 1=Total Assistance 5=Supervision or Setup 2=Maximal Assistance 6=Modified [place] 3=Moderate Assistance 7=Complete IndependenceSCALE: Activities may be completed with or without assistive devices. 2-Wrtkblasqq-vdnbafh completes the activity by him/herself with no assistance from a helper. 5-Set-up or Clean-up Assistance-helper sets up or cleans up; patient completes activity. [place] assists only prior to or following the activity. 4-Supervision or Touching Assistance-helper provides verbal cues and/or touching/steadying and/or contact guard assistance as patient completes activity. Assistance may be provided throughout the activity or intermittently. 3-Partial/Moderate Assistance-helper does LESS THAN HALF the effort. [place] lifts, holds or supports trunk or limbs, but provides less than half the effort. 2-Substantial/Maximal Assistance-helper does MORE THAN HALF the effort. [place] lifts or holds trunk or limbs and provides more than half the effort. 5-Uyurdzmba-jhsmwe does ALL the effort. Patient does none of the effort to complete the activity. Or, the assistance of 2 or more helpers is required for the patient to complete the activity. If activity was not attempted, code reason: 7-Patient Refused. 9-Not Applicable-not attempted and the patient did not perform the activity before the current illness, exacerbation or injury. 10-Not Attempted due to Environmental Limitations-(lack of equipment, weather restraints, etc.). 88-Not Attempted due to Medical Conditions or Safety Concerns. Roll Left to Right (QC): 4 Sit to Lying (QC): 3 Sit to Stand (QC): 1 Chair/Vgq-ds-Yyyxg Xfer(QC): 1 Car Transfer (QC): 1 Gait Training Does the Patient Walk?: No and Walking Goal NOT indicated Walk 10 feet (QC): 88 Walk 50 ft with 2 Turns(QC): 88 Walk 150 ft (QC): 88 Walking 10ft/uneven surface-QC: 88 Wheelchair Training Wheel 50 ft with 2 turns (QC): 1 Wheel 150 ft (QC): 1 Stair Training 1 Step (curb) (QC): 88 4 Steps (QC): 88 12 Steps (QC): 88 Balance Picking up an Object (QC): 88 ADL-Treatment Eating (QC): 3 (SUP and min A for utensil placement.) Oral Hygiene (QC): 3 (min A for s/u and completion. Pt able to hold built up handle on toothbrush, bring to mouth after OT places toothpaste.) Shower/Bathe Self (QC): 7 Upper Body Dressing (QC): 7 Lower Body Dressing (QC): 1 (based on current abilities, will require Ax2 for donning/ doffing undergarments/ pants.) On/Off Footwear (QC): 1 (donning/ doffing with TD. pain noted during task due to hypersensitive feet.) Toileting Hygiene (QC): 7 Assessment/Plan Assessment and Plan Assess & Plan/Chief Complaint Assessment:: Myopathy COVID-19 PNA 06/03/20 Hypoxia Morbid obesity HTN HLP Developmental delay/autism Decubitus ulcers coccyx and left knee Tachycardia consulted Dr Jo-Ann de la rosa hypovolemia so started IVF Plan: Wound care IRF protocol Home meds Pain meds 08/11/20: Monitor closely Decubitus ulcer management 08/12/20: Monitor closely IVF NS Monitor tachycardia Supportive care 08/13/20: IVF Monitor closely (1) Myopathy (2) Pneumonia due to 2019 novel coronavirus Status: Acute (3) Morbid obesity Status: Chronic (4) Hypoxia Status: Acute (5) T2DM (type 2 diabetes mellitus) Status: Acute HEMANTH DODD DO Aug 13, 2020 12:00
--- NOTE | 2020-08-13 12:22 | Cardiology Progress Note ---
Subjective Date Seen by Provider: Aug 13, 2020 Time Seen by Provider: 12:21 Subjective/Events-last exam Patient was seen at bedside, laying down comfortably, feeling slightly better today. Review of Systems General: No Chills, No Night Sweats; Fatigue, Malaise; No Appetite, No Other HEENT: No Head Aches, No Visual Changes, No Eye Pain, No Ear Pain, No Dysphasia, No Sinus Congestion, No Post Nasal Drip, No Sore Throat, No Other Pulmonary: Dyspnea; No Cough, No Pleuritic Chest Pain, No Other Cardiovascular: Edema; No: Chest Pain, Palpitations, Orthopnea, Paroxysmal Noc. Dyspnea, Lt Headedness, Other Focused Exam Lactate Level 08/10/20 12:30: Lactic Acid Level 1.57 Objective-Cardiology Exam Last Set of Vital Signs Vital Signs 08/13/20 08/13/20 08/13/20 05:49 08:00 08:29 Temp 36.0 Pulse 114 Resp 16 B/P (MAP) 133/70 (91) Pulse Ox 96 O2 Delivery Room Air Capillary Refill : I&O Intake and Output 08/13/20 00:00 Intake Total 1370 ml Output Total 1200 ml Balance 170 ml Intake Oral 1370 ml Output Urine Total 1200 ml General: Alert, Oriented X3, Cooperative HEENT: Atraumatic, PERRLA Neck: Supple, No JVD, No Thyromegaly Lungs: Clear to Auscultation, Normal Air Movement Heart: Regular Rate, Normal S1, Normal S2, No Murmurs Abdomen: Normal Bowel Sounds, Soft, No Tenderness, No Hepatosplenomegaly, No Masses Extremities: No Clubbing, No Cyanosis, No Edema, Normal Pulses, No Tenderness/Swelling Skin: No Rashes, No Breakdown, No Significant Lesion Neuro: Normal Speech Psych/Mental Status: Mental Status NL, Other (depressed mood) A/P-Cardiology Admission Diagnosis Sinus tachycardia Hypertension Hyperlipidemia Diabetes mellitus Assessment/Plan Sinus tachycardia, probably due to hypovolemia, continue to hold Lasix and encourage fluid intake and monitor tolerance and response. Critical illness myopathy, receiving physical therapy, managed by primary care team Decubitus ulcers, managed by primary care team Hypertension, monitor blood pressure Hyperlipidemia, monitor lipids Diabetes mellitus, followed and managed by primary care physician Patient is maintained on Lovenox for DVT prophylaxis ERIN NG MD Aug 13, 2020 12:22
[2020-08-13] MEDS: fentaNYL PATCH 25 MCG (DURAGESIC) TD SCH (14:55)
[2020-08-13 17:00] VITALS: BP 127/77
[2020-08-13] MEDS: QUEtiapine 25 MG (SEROquel) TAB IMMEDIATE RELEASE PO SCH (20:44)
[2020-08-13] MEDS: TAMSULOSIN 0.4 MG (FLOMAX) CAP PO SCH (20:44)
[2020-08-13] MEDS: MELATONIN 10 MG TABLET PO SCH (20:45)
[2020-08-14] MEDS: ENOXAPARIN 40 MG/0.4 ML (LOVENOX) SYR SC SCH ×2 (02:12→18:07)
[2020-08-14] MEDS: NS IV 1000 ML 1,000 ML IV SCH ×2 (02:42→15:14)
[2020-08-14 05:10] VITALS: BP 141/87
[2020-08-14 05:28] LABS: BASOPHILS # (AUTO) 0.1 10^3/uL (0.0-0.1); BASOPHILS % (AUTO) 1 % (0-10); EOSINOPHILS # (AUTO) 0.2 10^3/uL (0.0-0.3); EOSINOPHILS % (AUTO) 2 % (0-10); HEMATOCRIT 31 % (40-54); HEMOGLOBIN 9.6 g/dL (13.3-17.7); LYMPHOCYTES # (AUTO) 3.1 10^3/uL (1.0-4.0); LYMPHOCYTES % (AUTO) 34 % (12-44); MEAN CORPUSCULAR HEMOGLOBIN 26 pg (25-34); MEAN CORPUSCULAR HGB CONC 32 g/dL (32-36); MEAN CORPUSCULAR VOLUME 82 fL (80-99); MEAN PLATELET VOLUME 8.5 fL (9.0-12.2); MONOCYTES # (AUTO) 0.9 10^3/uL (0.0-1.0); MONOCYTES % (AUTO) 10 % (0-12); NEUTROPHILS # (AUTO) 4.8 10^3/uL (1.8-7.8); NEUTROPHILS % (AUTO) 53 % (42-75); PLATELET COUNT 419 10^3/uL (130-400)
[2020-08-14 05:54] LABS: ALANINE AMINOTRANSFERASE 27 U/L (0-55); ALBUMIN 3.3 GM/DL (3.2-4.5); ALKALINE PHOSPHATASE 124 U/L (40-136); BILIRUBIN,TOTAL 0.4 MG/DL (0.1-1.0); BUN/CREATININE RATIO 24; CALCIUM 9.2 MG/DL (8.5-10.1); CARBON DIOXIDE 23 MMOL/L (21-32); CHLORIDE 104 MMOL/L (98-107); CREATININE SERUM 0.58 MG/DL (0.60-1.30); GFR ESTIMATED > 60; GLUCOSE 119 MG/DL (70-105); POTASSIUM 4.1 MMOL/L (3.6-5.0); SODIUM 138 MMOL/L (135-145); TOTAL PROTEIN 6.3 GM/DL (6.4-8.2)
[2020-08-14] MEDS: inSUlin ASPART (NovoLOG) 1 UNIT/0.01 ML (CHARGE PER UNIT) SC SCH ×4 (05:56→21:38)
[2020-08-14] MEDS: MULTIVIT W/MINERALS TAB (THERAGRAN M) PO SCH (06:03)
[2020-08-14 08:05] VITALS: BP 180/89
[2020-08-14] MEDS: VITAMIN D3 125 MCG (5,000 UNITS) CAPSULE PO SCH (08:06)
[2020-08-14] MEDS: GABAPENTIN 300 MG (NEURONTIN) CAP PO SCH ×3 (08:06→21:36)
[2020-08-14] MEDS: DOCUSATE SODIUM 100 MG (COLACE) CAP PO SCH ×2 (08:06→21:36)
[2020-08-14] MEDS: meTOprolol TARTRATE 50 MG (LOPRESSOR) TAB PO SCH ×2 (08:06→21:36)
[2020-08-14] MEDS: LACTOBACILLUS ACIDOPHILUS (PROBIOTIC) CAPSULE PO SCH ×2 (08:06→21:36)
--- NOTE | 2020-08-14 08:06 | Progress Note - Surgery ---
EDITHJAYMEK MED STUDENT 08/14/20 0806: Subjective Date Seen by a Provider: Aug 14, 2020 Time Seen by a Provider: 07:00 Subjective/Events-last exam Pt is laying in bed sleeping this morning. States he does not have any pain in his knee, lower back, or face this morning. He is unsure whether or not his wounds are getting worse or better. Nursing states they think the decubitus ulcer on the sacral area may be a bit worse. Knee might be a bit better. Would like to know if a wound vac is indicated. States they are changing his dressing about 2x a day. States the smell is a bit worse. Pt denies any soreness. Ate a meal last night but has not had breakfast today. LBM was yesterday, no pain or blood noted. He is also ambulating with PT. Has no questions or concerns at this time. Review of Systems General: No Chills, No Fatigue HEENT: No Head Aches, No Visual Changes, No Dysphasia Pulmonary: No Dyspnea Cardiovascular: No: Chest Pain, Palpitations, Edema Gastrointestinal: No: Nausea, Vomiting, Abdominal Pain, Diarrhea, Constipation, Melena, Hematochezia Genitourinary: No Dysuria, No Hematuria Musculoskeletal: No: leg pain Objective Exam Vital Signs Date Time Temp Pulse Resp B/P (MAP) Pulse Ox O2 Delivery O2 Flow Rate FiO2 08/14/20 05:10 36.1 106 17 141/87 (105) 95 Room Air 08/13/20 20:49 Room Air 08/13/20 18:43 93 Room Air 08/13/20 17:00 36.1 108 18 127/77 (94) 94 Room Air 08/13/20 14:20 95 Room Air 08/13/20 08:29 114 133/70 (91) I & O 08/14/20 06:59 Intake Total 1920 ml Output Total 2575 ml Balance -655 ml Capillary Refill : General Appearance: No Apparent Distress, WD/WN, Chronically ill, Obese Respiratory: Chest Non Tender, Lungs Clear, Normal Breath Sounds, No Accessory Muscle Use, No Respiratory Distress Cardiovascular: Regular Rate, Rhythm, No Murmur, Normal Peripheral Pulses Peripheral Pulses: 2+ Radial Pulses (R), 2+ Radial Pulses (L) Gastrointestinal: normal bowel sounds, non tender, soft, no organomegaly Extremity: Normal Inspection, Non Tender, No Calf Tenderness, Other (Grade 3 decubitus ulcer on knee, appears slightly better than friday. Wound Dressed with no leaking.) Neurologic/Psychiatric: Alert, Oriented x3, Normal Mood/Affect, Motor Weakness (2/5 all extremities) Skin: Normal Color, Warm/Dry, Other (Grade 4 Decubitus ulcer on sacral area. No change in size. Odor has worsened. Packed and dressed with no leakage. ) Lymphatic: No Adenopathy Results Lab Laboratory Tests 08/13/20 11:22: Glucometer 126H 08/13/20 15:13: Glucometer 131H 08/13/20 20:02: Glucometer 154H 08/14/20 04:55: White Blood Count 9.0, Red Blood Count 3.73L, Hemoglobin 9.6L, Hematocrit 31L, Mean Corpuscular Volume 82, Mean Corpuscular Hemoglobin 26, Mean Corpuscular Hemoglobin Concent 32, Red Cell Distribution Width 14.3, Platelet Count 419H, Mean Platelet Volume 8.5L, Immature Granulocyte % (Auto) 0, Neutrophils (%) (Auto) 53, Lymphocytes (%) (Auto) 34, Monocytes (%) (Auto) 10, Eosinophils (%) (Auto) 2, Basophils (%) (Auto) 1, Neutrophils # (Auto) 4.8, Lymphocytes # (Auto) 3.1, Monocytes # (Auto) 0.9, Eosinophils # (Auto) 0.2, Basophils # (Auto) 0.1, Immature Granulocyte # (Auto) 0.0, Sodium Level 138, Potassium Level 4.1, Chloride Level 104, Carbon Dioxide Level 23, Anion Gap 11, Blood Urea Nitrogen 14, Creatinine 0.58L, Estimat Glomerular Filtration Rate > 60, BUN/Creatinine Ratio 24, Glucose Level 119H, Calcium Level 9.2, Corrected Calcium 9.8, Total Bilirubin 0.4, Aspartate Amino Transf (AST/SGOT) 20, Alanine Aminotransferase (ALT/SGPT) 27, Alkaline Phosphatase 124, Total Protein 6.3L, Albumin 3.3 Assessment/Plan Assessment/Plan Assessment/Plan Decubitis Ulcer - Sacral, Knee, face -Decide if surgical debriedment is nescessary, if so, OR today or tomorrow -Continue regular packing and dressing change. -Sanofyl on knee and Betadine on facial scab DM - home meds and glucose checks ANDRES SANTILLAN DO 08/14/20 1403: Subjective Time Seen by a Provider: 13:46 Subjective/Events-last exam Pt seen and examined, no new complaints. Review of Systems General: No Chills; Fatigue HEENT: No Head Aches, No Visual Changes Pulmonary: No Dyspnea Cardiovascular: No: Chest Pain, Palpitations Gastrointestinal: No: Nausea, Vomiting, Abdominal Pain, Diarrhea, Constipation Genitourinary: No Dysuria, No Hematuria Objective Exam General Appearance: No Apparent Distress, Chronically ill, Obese Respiratory: Lungs Clear, Normal Breath Sounds, No Accessory Muscle Use, No Respiratory Distress Cardiovascular: Regular Rate, Rhythm, No Murmur Gastrointestinal: non tender, soft, no organomegaly Extremity: No Calf Tenderness, Other (Grade 3 decubitus ulcer on knee, appears slightly better than friday. Wound Dressed with no leaking.) Neurologic/Psychiatric: Alert, Oriented x3, Motor Weakness (2/5 all extremities) Skin: Other (Grade 4 Decubitus ulcer on sacral area. No change in size. Odor has worsened. ) Assessment/Plan Assessment/Plan Assessment/Plan Decubitis Ulcer - Sacral, Knee, face -The sacral decub is not improving and will need surgical debriedment; will plan for Friday, continue Dakins dressing in the meantime. -Continue dressing change for knee and Sanofyl, Betadine on facial scab DM - home meds and glucose checks Supervisory-Addendum Brief Verification & Attestation Participated in pt care: history, MDM, physical Personally performed: exam, history, MDM Care discussed with: Medical Student Procedures: n/a Verification and Attestation of Medical Student E/M Service A medical student performed and documented this service. I then reviewed and verified all information documented by the medical student and made modifications to such information, when appropriate. I personally performed a physical exam, medical decision making and then discussed any differences between the notes and made revisions as necessary to create one note. Andres Santillan , 08/14/20 , 14:03 KADEN SHARMA MED STUDENT Aug 14, 2020 08:06 ANDRES SANTILLAN DO Aug 14, 2020 14:03
[2020-08-14] MEDS: DULoxetine 30 MG (CYMBALTA) CAP PO SCH ×2 (08:07→18:08)
[2020-08-14] MEDS: ASCORBIC ACID (VIT C) 500 MG TABLET PO SCH (08:07)
[2020-08-14] MEDS: cloNIDine 0.1 MG (CATAPRES) TAB PO SCH ×2 (08:07→21:36)
[2020-08-14] MEDS: polyethylene glycoL POWDER 17 GM (MIRALAX) PACK PO SCH ×2 (08:33→21:37)
[2020-08-14] MEDS: SENNA W/DOCUSATE (SENOKOT S) TABLET PO SCH ×2 (08:33→21:37)
[2020-08-14] MEDS: SENNOSIDES 8.6 MG (SENOKOT) TAB PO SCH ×2 (08:33→21:37)
--- NOTE | 2020-08-14 09:00 | Physical Therapy Daily Note ---
PT Daily Note-Current Subjective Patient in bed pre tx, agrees to PT, has 3/10 pain in bottom, will be co- treating with OT due to poor patient mobility, strength, endurance, pain with activity, coordinate UE and LE during activity, safety and reduce risk of falls. Appearance Patient in bed post tx with nurse call, phone, OT in room. Mental Status Patient Orientation: Person, Place, Situation Attachments: IV Transfers SCALE: Activities may be completed with or without assistive devices. 9-Sxdouwmwwv-esspuee completes the activity by him/herself with no assistance from a helper. 5-Set-up or Clean-up Assistance-helper sets up or cleans up; patient completes activity. [place] assists only prior to or following the activity. 4-Supervision or Touching Assistance-helper provides verbal cues and/or touching/steadying and/or contact guard assistance as patient completes activity. Assistance may be provided throughout the activity or intermittently. 3-Partial/Moderate Assistance-helper does LESS THAN HALF the effort. [place] lifts, holds or supports trunk or limbs, but provides less than half the effort. 2-Substantial/Maximal Assistance-helper does MORE THAN HALF the effort. [place] lifts or holds trunk or limbs and provides more than half the effort. 1-Ijkkpsawq-udkjyq does ALL the effort. Patient does none of the effort to complete the activity. Or, the assistance of 2 or more helpers is required for the patient to complete the activity. If activity was not attempted, code reason: 7-Patient Refused. 9-Not Applicable-not attempted and the patient did not perform the activity before the current illness, exacerbation or injury. 10-Not Attempted due to Environmental Limitations-(lack of equipment, weather restraints, etc.). 88-Not Attempted due to Medical Conditions or Safety Concerns. Roll Left & Right (QC): 3 Sit to Lying (QC): 3 Lying to Sitting/Side of Bed(Q: 3 Sit to Stand (QC): 1 Chair/Zff-fm-Vloku Xfer(QC): 1 Mod assist for supine <-> sit, patient uses a sit to stand machine for transfers, transfer from bed to and then to the gym, patient is not able to propel WC due to wrist weakness, attempted to use standing frame to stand and stretch out calves (he has plantarflexion contractures), he was not able to tolerate standing but could come up just a little and his calves had pain due to stretching. Treatments PT worked on bed mobility and transfers, calf stretching, OT worked on UE activity during stretching, UE positioning and safety during activity Assessment Current Status: Poor Progress dependent for transfers, more pain due to sacral wound PT Short Term Goals Short Term Goals Time Frame: Aug 17, 2020 Roll Left & Right: 4 Sit to lyin Lying to sitting on side of be: 2 Sit to stand: 1 Chair/zus-lp-ucbcm transfer: 1 PT Half-Way Goals Desulphuring Operator Goals PT Half-Way Goals Time Frame: Aug 31, 2020 Roll Left & Right (QC): 6 Sit to Lying (QC): 3 Lying-Sitting on Side/Bed(QC): 3 Sit to Stand (QC): 2 Chair/Ddf-yt-Jihfl Xfer(QC): 2 Toilet Transfer (QC): 2 Car Transfer (QC): 1 Does the Patient Walk: No and Walking Goal NOT indicated Walk 10 feet (QC): 88 Walk 50ft with 2 Turns (QC): 88 Walk 150 ft (QC): 88 Walking 10ft on Uneven Surface: 88 1 Step (curb) (QC): 88 4 Steps (QC): 88 12 Steps (QC): 88 Picking up an Object (QC): 88 Wheel 50 feet with 2 turns (QC: 3 Wheel 150 feet: 3 PT Plan Problem List Problem List: Activity Tolerance, Functional Strength, Safety, Balance, Gait, Transfer, Bed Mobility, ROM Treatment/Plan Treatment Plan: Continue Plan of Care Treatment Plan: Bed Mobility, Education, Functional Activity Héctor, Functional Strength, Group Therapy, Gait, Safety, Therapeutic Exercise, Transfers Treatment Duration: Aug 31, 2020 Frequency: Estimated Hrs Per Day: 1 hour per day Patient and/or Family Agrees t: Yes Safety Risks/Education Patient Education: Transfer Techniques, Correct Positioning, Safety Issues Teaching Recipient: Patient Teaching Methods: Demonstration, Discussion Response to Teaching: Reinforcement Needed Time/GCodes Time In: 0800 Time Out: 0900 Total Billed Treatment Time: 60 Total Billed Treatment 1 visit EX 15' FA 45' co-treated with OT for 45' from [id number] LYNDSAY PERRY PT Aug 14, 2020 08:59
--- NOTE | 2020-08-14 09:05 | PM&R Progress Note ---
Subjective HPI/CC On Admission Date Seen by Provider: Aug 14, 2020 Time Seen by Provider: 09:15 Subjective/Events-last exam 08/14/20:' Awaiting plan from Dr Santillan regarding the wound on coccyx Odor is present No pain reported by patient except neuropathy BM+ Retime Lovenox 08/13/20: Patient doing well Apathy Patient states he is homesick BM large today IVF maintained 08/12/20: Patient doing better Neuropathy of feet an issue so we discussed it Fentanyl and Oxycodone and Gabapentin BM+ 08/1008/11/20: Patient doing well Decubitus ulcer managed by Dr Santillan Continent [place] lift Checked meds and labs Review of Systems General: Fatigue, Malaise Neurological: Weakness Objective Exam Vital Signs Vital Signs Date Time Temp Pulse Resp B/P (MAP) Pulse Ox O2 Delivery O2 Flow Rate FiO2 08/14/20 21:30 122 125/74 (91) 08/14/20 21:14 Room Air 08/14/20 16:27 36.8 16 96 Capillary Refill : General Appearance: No Apparent Distress, WD/WN, Chronically ill, Obese HEENT: PERRL/EOMI, Normal ENT Inspection, Pharynx Normal Neck: Full Range of Motion, Normal Inspection, Non Tender, Supple Respiratory: Chest Non Tender, Lungs Clear, Normal Breath Sounds, No Accessory Muscle Use, No Respiratory Distress Cardiovascular: Regular Rate, Rhythm, No Edema, No Gallop, No JVD, No Murmur, Normal Peripheral Pulses Gastrointestinal: Normal Bowel Sounds, No Organomegaly, No Pulsatile Mass, Non Tender, Soft Back: Normal Inspection, No CVA Tenderness, No Vertebral Tenderness Extremity: Normal Inspection, Non Tender, No Calf Tenderness, Other (Grade 3 decubitus ulcer on knee, appears slightly better than friday. Wound Dressed with no leaking.) Neurologic/Psychiatric: Alert, Oriented x3, Normal Mood/Affect, hand tube bender II-XII Norm as Tested, Motor Weakness (2/5 all extremities) Skin: Normal Color, Warm/Dry, Other (Grade 4 Decubitus ulcer on sacral area. No change in size. Odor has worsened. Packed and dressed with no leakage. ) Lymphatic: No Adenopathy Results/Procedures Lab Laboratory Tests 08/14/20 04:55 Patient resulted labs reviewed. FIM Transfers Therapy Code Descriptions/Definitions Functional [place] Measure: 0=Not Assessed/NA 4=Minimal Assistance 1=Total Assistance 5=Supervision or Setup 2=Maximal Assistance 6=Modified [place] 3=Moderate Assistance 7=Complete IndependenceSCALE: Activities may be completed with or without assistive devices. 4-Tcvqabwbuk-lgtyuui completes the activity by him/herself with no assistance from a helper. 5-Set-up or Clean-up Assistance-helper sets up or cleans up; patient completes activity. [place] assists only prior to or following the activity. 4-Supervision or Touching Assistance-helper provides verbal cues and/or t ouching/steadying and/or contact guard assistance as patient completes activity. Assistance may be provided throughout the activity or intermittently. 3-Partial/Moderate Assistance-helper does LESS THAN HALF the effort. [place] lifts, holds or supports trunk or limbs, but provides less than half the effort. 2-Substantial/Maximal Assistance-helper does MORE THAN HALF the effort. [place] lifts or holds trunk or limbs and provides more than half the effort. 2-Hnrpbwrrx-nciqae does ALL the effort. Patient does none of the effort to complete the activity. Or, the assistance of 2 or more helpers is required for the patient to complete the activity. If activity was not attempted, code reason: 7-Patient Refused. 9-Not Applicable-not attempted and the patient did not perform the activity before the current illness, exacerbation or injury. 10-Not Attempted due to Environmental Limitations-(lack of equipment, weather restraints, etc.). 88-Not Attempted due to Medical Conditions or Safety Concerns. Roll Left to Right (QC): 4 Sit to Lying (QC): 3 Sit to Stand (QC): 1 Chair/Zte-oi-Jkrid Xfer(QC): 1 Car Transfer (QC): 1 Gait Training Does the Patient Walk?: No and Walking Goal NOT indicated Walk 10 feet (QC): 88 Walk 50 ft with 2 Turns(QC): 88 Walk 150 ft (QC): 88 Walking 10ft/uneven surface-QC: 88 Wheelchair Training Wheel 50 ft with 2 turns (QC): 1 Wheel 150 ft (QC): 1 Stair Training 1 Step (curb) (QC): 88 4 Steps (QC): 88 12 Steps (QC): 88 Balance Picking up an Object (QC): 88 ADL-Treatment Eating (QC): 3 (SUP and min A for utensil placement.) Oral Hygiene (QC): 3 (min A for s/u and completion. Pt able to hold built up handle on toothbrush, bring to mouth after OT places toothpaste.) Shower/Bathe Self (QC): 7 Upper Body Dressing (QC): 7 Lower Body Dressing (QC): 1 (based on current abilities, will require Ax2 for donning/ doffing undergarments/ pants.) On/Off Footwear (QC): 1 (donning/ doffing with TD. pain noted during task due to hypersensitive feet.) Toileting Hygiene (QC): 7 Assessment/Plan Assessment and Plan Assess & Plan/Chief Complaint Assessment:: Myopathy COVID-19 PNA 06/03/20 Hypoxia Morbid obesity HTN HLP Developmental delay/autism Decubitus ulcers coccyx and left knee Tachycardia consulted Dr Busch dx hypovolemia so started IVF Plan: Wound care IRF protocol Home meds Pain meds 08/11/20: Monitor closely Decubitus ulcer management 08/12/20: Monitor closely IVF NS Monitor tachycardia Supportive care 08/13/20: IVF Monitor closely 08/14/20: Await wound care plan Monitor closely Continue IVF (1) Myopathy (2) Pneumonia due to 2019 novel coronavirus Status: Acute (3) Morbid obesity Status: Chronic (4) Hypoxia Status: Acute (5) T2DM (type 2 diabetes mellitus) Status: Acute HEMANTH DODD DO Aug 14, 2020 09:05
--- NOTE | 2020-08-14 10:17 | Progress Note ---
[facility] 08/14/20 1017: Progress Note Cabrera is resting in bed with minimal pain. He is having pain from his sacral wound. General Surgery is evaluating patient for debridement surgery today or tomorrow. Labs are stable. Patient needs extensive rehab. He is working with PT/OT and is improving. Overall patient is stable, will monitor for wound care recommendations. JESSICA FARR DO 08/15/20 0509: Supervisory-Addendum Brief Verification & Attestation Participated in pt care: history, MDM, physical Personally performed: exam, history, MDM, supervision of care Care discussed with: Medical Student Procedures: n/a Results interpretation: Verified all documentation Verification and Attestation of Medical Student E/M Service A medical student performed and documented this service in my presence. I reviewed and verified all information documented by the medical student and made modifications to such information, when appropriate. I personally performed the physical exam and medical decision making. Jessica Farr Aug 15, 2020,05:09 [facility] Aug 14, 2020 10:17 JESSICA FARR DO Aug 15, 2020 05:09
--- NOTE | 2020-08-14 10:21 | Cardiology Progress Note ---
Subjective Date Seen by Provider: Aug 14, 2020 Time Seen by Provider: 10:20 Subjective/Events-last exam Patient was seen at bedside, laying down comfortably. No new complaint Review of Systems General: No Chills, No Night Sweats; Fatigue, Malaise; No Appetite, No Other HEENT: No Head Aches, No Visual Changes, No Eye Pain, No Ear Pain, No Dysphasia, No Sinus Congestion, No Post Nasal Drip, No Sore Throat, No Other Pulmonary: No Dyspnea, No Cough, No Pleuritic Chest Pain, No Other Cardiovascular: No: Chest Pain, Palpitations, Orthopnea, Paroxysmal Noc. Dyspnea, Edema, Lt Headedness, Other Objective-Cardiology Exam Last Set of Vital Signs Vital Signs 08/14/20 08/14/20 08/14/20 05:10 08:05 08:29 Temp 36.1 Pulse 106 Resp 17 B/P (MAP) 180/89 (119) Pulse Ox 95 O2 Delivery Room Air Capillary Refill : I&O Intake and Output 08/14/20 00:00 Intake Total 1780 ml Output Total 2275 ml Balance -495 ml Intake Oral 780 ml IV Total 1000 ml Output Urine Total 2275 ml # Bowel Movements 1 General: Alert, Oriented X3, Cooperative HEENT: Atraumatic, PERRLA Neck: Supple, No JVD, No Thyromegaly Lungs: Clear to Auscultation, Normal Air Movement Heart: Regular Rate, Normal S1, Normal S2, No Murmurs Abdomen: Normal Bowel Sounds, Soft, No Tenderness, No Hepatosplenomegaly, No Masses Extremities: No Clubbing, No Cyanosis, Normal Pulses, No Tenderness/Swelling Skin: No Rashes, No Significant Lesion, Other (multiple decubitus ulcers) Neuro: Normal Speech Psych/Mental Status: Mental Status NL, Other (depressed mood) Results Lab Laboratory Tests 08/14/20 04:55 A/P-Cardiology Admission Diagnosis Sinus tachycardia Hypertension Hyperlipidemia Diabetes mellitus Assessment/Plan Sinus tachycardia, probably due to hypovolemia, continue to hold Lasix and encourage fluid intake and monitor tolerance and response. Critical illness myopathy, receiving physical therapy, managed by primary care team Decubitus ulcers, managed by primary care team Hypertension, monitor blood pressure Hyperlipidemia, monitor lipids Diabetes mellitus, followed and managed by primary care physician Multiple decubitus ulcer, sacral, on the face and on his knee, managed by primary care team Patient is maintained on Lovenox for DVT prophylaxis ERIN NG MD Aug 14, 2020 10:21
--- NOTE | 2020-08-14 10:51 | Occupational Ther Daily Note ---
OT Current Status-Daily Note Subjective Pt. reports pain with touch, and reports pain in right LE with movement onto sit-stand lift. Pt. does not report pain level, and therapy modifies tasks for comfort. Pt. has had pain medication. Mental Status/Objective Patient Orientation: Person, Place Attachments: IV ADL-Treatment Therapy Code Descriptions/Definitions Functional [place] Measure: 0=Not Assessed/NA 4=Minimal Assistance 1=Total Assistance 5=Supervision or Setup 2=Maximal Assistance 6=Modified [place] 3=Moderate Assistance 7=Complete IndependenceSCALE: Activities may be completed with or without assistive devices. 5-Yigbviyjwi-mvaxpux completes the activity by him/herself with no assistance from a helper. 5-Set-up or Clean-up Assistance-helper sets up or cleans up; patient completes activity. [place] assists only prior to or following the activity. 4-Supervision or Touching Assistance-helper provides verbal cues and/or touching/steadying and/or contact guard assistance as patient completes activity. Assistance may be provided throughout the activity or intermittently. 3-Partial/Moderate Assistance-helper does LESS THAN HALF the effort. [place] lifts, holds or supports trunk or limbs, but provides less than half the effort. 2-Substantial/Maximal Assistance-helper does MORE THAN HALF the effort. [place] lifts or holds trunk or limbs and provides more than half the effort. 1-Ypsurkwjp-tkyyur does ALL the effort. Patient does none of the effort to complete the activity. Or, the assistance of 2 or more helpers is required for the patient to complete the activity. If activity was not attempted, code reason: 7-Patient Refused. 9-Not Applicable-not attempted and the patient did not perform the activity before the current illness, exacerbation or injury. 10-Not Attempted due to Environmental Limitations-(lack of equipment, weather restraints, etc.). 88-Not Attempted due to Medical Conditions or Safety Concerns. Eating (QC): 3 Pt. was seen this a.m. by OT/PT for mobility and strength. PT focused on transfers and mobility while OT facilitated feeding skills, assisted with transfers as well, and performed UE AROM. Pt. sitting on side of bed when OT e ntered room with PT. Pt. was transferred using sit-stand lift to wheelchair. Pt. verbalizes that his right calf "stretches" too much and is painful. Pt. taken to therapy gym via wheelchair, and therapy attempted to stand pt. in standing frame. As pressure was put through bilateral LE with transfer, pt. states that he is unable to tolerate a full stand. Pt. is left with some te nsion through LE for stretch. As PT was facilitating and monitoring this, OT provided gentle stretch to bilateral wrists and fingers, as well as elbows. Pt. has no active movement in wrist extension at this time. Pt. wears splint on right wrist to provide stability. Pt. is able to flex fingers somewhat, and is able to flex elbows. Pt. taken back to room via wheelchair and is transferred back to air bed via sit-stand lift. Pt. requests to finish his meal, which is peaches, glucerna, and milk. OT brings in two Abraham cups and uses them for his drinks. OT puts a cup in his right hand by opening fingers and placing around cup. He is able to bring to mouth and drink from straw. OT holds bowl of peaches low and built up spoon is placed in right hand. He is able to scoop peaches from the bowl, but unable to steady the bowl himself. After feeding task, Pt. is transferred to side and positioned for best pressure relief. All needs met. Education OT Patient Education: Correct positioning, Exercise program, Modified ADL techniques, Progress toward Goal/Update tx plan, Purpose of tx/functional activi ties, Reviewed precautions, Rehab process, Transfer techniques Teaching Recipient: Patient Teaching Methods: Demonstration, Discussion Response to Teaching: Verbalize Understanding, Return Demonstration OT Short Term Goals Short Term Goals Eatin Oral hygiene: 3 Toileting hygiene: 2 Shower/bathe self: 2 Upper body dressin Lower body dressin Putting on/taking off footwear: 2 OT Penitentiary Goals Penitentiary Goals Time Frame: Aug 31, 2020 Eating (QC): 6 Oral Hygiene (QC): 6 Toileting Hygiene (QC): 4 Shower/Bathe Self (QC): 4 Upper Body Dressing (QC): 6 Lower Body Dressing (QC): 4 On/Off Footwear (QC): 4 Additional Goals: 1-Demonstrate ADL Tasks, 2-Verbalize Understanding, 3- ImproveStrength/Héctor 1=Demonstrate adherence to instructed precautions during ADL tasks. 2=Patient will verbalize/demonstrate understanding of assistive devices/modifications for ADL. 3=Patient will improve strength/tolerance for activity to enable patient to perform ADL's. OT Education/Plan Problem List/Assessment Assessment: Decreased Activ Tolerance, Decreased UE Strength, Dependent Transfers, Impaired Bed Mobility, Impaired Coordination, Impaired Funct Balance, Impaired I ADL's, Impaired Self-Care Skills, Restricted Funct UE ROM Discharge Recommendations Plan/Recommendations: Continue POC Therapy Discharge Recommendati: Post Acute OT Treatment Plan/Plan of Care Treatment,Training & Education: Yes Patient would benefit from OT for education, treatment and training to promote independence in ADL's, mobility, safety and/or upper extremity function for ADL's. Plan of Care: ADL Retraining, Caregiver Training, Concurrent Therapy, Functional Mobility, Group Exercise/Act as Ind, Orthotic Fitting/Training, UE Funct Exercise/Act, UE Neuromus Re-Ed/Coord, W/C Management Training Treatment Duration: Aug 31, 2020 Frequency: Modified Program (IRF) Estimated Hrs Per Day: 1 hour per day (Covid Waiver) Agreement: Yes Rehab Potential: Fair Time/GCodes Start Time: 08:15 Stop Time: 09:15 Total Time Billed (hr/min): 60 Billed Treatment Time 5145-3765 1, FA x [id number] with PT. Please see above note for d esignated roles. [id number] ADL x 15minutes SWATI DOS SANTOS OT Aug 14, 2020 10:51
--- NOTE | 2020-08-14 12:50 | Physical Therapy Daily Note ---
PT Daily Note-Current Subjective Patient in bed pre tx, agrees to PT, has unrated pain in sacral area due to wound. Appearance Patient in bed post tx with nurse call, phone, tray, laying on left side. Mental Status Patient Orientation: Person, Place, Situation Transfers SCALE: Activities may be completed with or without assistive devices. 2-Ynlabhaqtt-zgdjhip completes the activity by him/herself with no assistance from a helper. 5-Set-up or Clean-up Assistance-helper sets up or cleans up; patient completes activity. [place] assists only prior to or following the activity. 4-Supervision or Touching Assistance-helper provides verbal cues and/or touching/steadying and/or contact guard assistance as patient completes activity. Assistance may be provided throughout the activity or intermittently. 3-Partial/Moderate Assistance-helper does LESS THAN HALF the effort. [place] lifts, holds or supports trunk or limbs, but provides less than half the effort. 2-Substantial/Maximal Assistance-helper does MORE THAN HALF the effort. [place] lifts or holds trunk or limbs and provides more than half the effort. 7-Tnqjiemzw-zqhlmx does ALL the effort. Patient does none of the effort to complete the activity. Or, the assistance of 2 or more helpers is required for the patient to complete the activity. If activity was not attempted, code reason: 7-Patient Refused. 9-Not Applicable-not attempted and the patient did not perform the activity before the current illness, exacerbation or injury. 10-Not Attempted due to Environmental Limitations-(lack of equipment, weather restraints, etc.). 88-Not Attempted due to Medical Conditions or Safety Concerns. Exercises Supine Ex: Heel Slides, Short Arc Quads, Straight leg raise, Hip abd/add Supine Reps: 20 (AAROM with SLR) Treatments LE exercise Assessment Current Status: Poor Progress Patient has a lot of foot pain with movement, needs rest breaks between exercises PT Short Term Goals Short Term Goals Time Frame: Aug 17, 2020 Roll Left & Right: 4 Sit to lyin Lying to sitting on side of be: 2 Sit to stand: 1 Chair/ztv-an-dbwxi transfer: 1 PT Care Home Goals Care Home Goals PT Dialysis Rn Goals Time Frame: Aug 31, 2020 Roll Left & Right (QC): 6 Sit to Lying (QC): 3 Lying-Sitting on Side/Bed(QC): 3 Sit to Stand (QC): 2 Chair/Cmw-ll-Ttomw Xfer(QC): 2 Toilet Transfer (QC): 2 Car Transfer (QC): 1 Does the Patient Walk: No and Walking Goal NOT indicated Walk 10 feet (QC): 88 Walk 50ft with 2 Turns (QC): 88 Walk 150 ft (QC): 88 Walking 10ft on Uneven Surface: 88 1 Step (curb) (QC): 88 4 Steps (QC): 88 12 Steps (QC): 88 Picking up an Object (QC): 88 Wheel 50 feet with 2 turns (QC: 3 Wheel 150 feet: 3 PT Plan Problem List Problem List: Activity Tolerance, Functional Strength, Safety, Balance, Gait, Transfer, Bed Mobility, ROM Treatment/Plan Treatment Plan: Continue Plan of Care Treatment Plan: Bed Mobility, Education, Functional Activity Héctor, Functional Strength, Group Therapy, Gait, Safety, Therapeutic Exercise, Transfers Treatment Duration: Aug 31, 2020 Frequency: Estimated Hrs Per Day: 1 hour per day Patient and/or Family Agrees t: Yes Safety Risks/Education Patient Education: Correct Positioning, Safety Issues Teaching Recipient: Patient Teaching Methods: Demonstration, Discussion Response to Teaching: Reinforcement Needed Time/GCodes Time In: 1120 Time Out: 1135 Total Billed Treatment Time: 15 Total Billed Treatment 1 visit EX LYNDSAY MAZNANARES PT Aug 14, 2020 12:50
[2020-08-14] MEDS: COLLAGENASE 30 GM (SANTYL) TUBE TP SCH ×2 (12:55→21:35)
[2020-08-14] MEDS: DAKIN'S 1/4 STRENGTH (0.125%) 473 ML BTL TOP SCH ×2 (12:55→21:35)
[2020-08-14 16:27] VITALS: BP 128/76
[2020-08-14 21:30] VITALS: BP 125/74
[2020-08-14] MEDS: QUEtiapine 25 MG (SEROquel) TAB IMMEDIATE RELEASE PO SCH (21:36)
[2020-08-14] MEDS: TAMSULOSIN 0.4 MG (FLOMAX) CAP PO SCH (21:36)
[2020-08-14] MEDS: MELATONIN 10 MG TABLET PO SCH (21:36)
[2020-08-15 01:25] VITALS: BP 122/71
[2020-08-15] MEDS: NS IV 1000 ML 1,000 ML IV SCH (02:25)
[2020-08-15] MEDS: inSUlin ASPART (NovoLOG) 1 UNIT/0.01 ML (CHARGE PER UNIT) SC SCH ×4 (06:30→20:33)
[2020-08-15] MEDS: MULTIVIT W/MINERALS TAB (THERAGRAN M) PO SCH (06:36)
[2020-08-15] MEDS: ENOXAPARIN 40 MG/0.4 ML (LOVENOX) SYR SC SCH ×2 (06:37→17:46)
[2020-08-15 06:43] VITALS: BP 142/85
[2020-08-15 07:55] VITALS: BP 126/86
[2020-08-15] MEDS: cloNIDine 0.1 MG (CATAPRES) TAB PO SCH ×2 (07:56→21:18)
[2020-08-15] MEDS: ASCORBIC ACID (VIT C) 500 MG TABLET PO SCH (07:56)
[2020-08-15] MEDS: GABAPENTIN 300 MG (NEURONTIN) CAP PO SCH ×3 (07:56→21:18)
[2020-08-15] MEDS: LACTOBACILLUS ACIDOPHILUS (PROBIOTIC) CAPSULE PO SCH ×2 (07:56→21:18)
[2020-08-15] MEDS: DULoxetine 30 MG (CYMBALTA) CAP PO SCH ×2 (07:56→17:47)
[2020-08-15] MEDS: VITAMIN D3 125 MCG (5,000 UNITS) CAPSULE PO SCH (07:56)
[2020-08-15] MEDS: meTOprolol TARTRATE 50 MG (LOPRESSOR) TAB PO SCH ×2 (07:56→21:18)
--- NOTE | 2020-08-15 08:21 | Progress Note - Surgery ---
KADEN SHARMA MED STUDENT 08/15/20 0821: Subjective Date Seen by a Provider: Aug 15, 2020 Subjective/Events-last exam Pt is awake and laying in bed this morning. Eating breakfast. Pt states his sore today isn't bothering him, states that the tenderness that was there yesterday on exam is still there. Nurse states dressing has been changed twice since yesterday. Once when soiled with urine, and once when wound saturated dressing. His current dressing has been on since 3am. States he is eating with no nausea, vomiting, or diarrhea. Last BM yesterday, no pain or blood. Is still participating in PT. No other questions at this time. Review of Systems General: No Chills, No Fatigue HEENT: No Head Aches, No Visual Changes Pulmonary: No Dyspnea Cardiovascular: No: Chest Pain, Palpitations, Edema Gastrointestinal: No: Nausea, Vomiting, Abdominal Pain, Diarrhea, Constipation, Melena, Hematochezia Genitourinary: No Dysuria, No Hematuria Musculoskeletal: foot pain (Diabetic Neuropathy); No: leg pain Objective Exam Vital Signs Date Time Temp Pulse Resp B/P (MAP) Pulse Ox O2 Delivery O2 Flow Rate FiO2 08/15/20 07:55 126/86 (99) 08/15/20 06:43 36.2 112 17 142/85 (104) 96 Room Air 08/14/20 21:30 122 125/74 (91) 08/14/20 21:14 Room Air 08/14/20 16:27 36.8 112 16 128/76 (93) 96 08/14/20 08:29 Room Air I & O 08/15/20 07:00 Intake Total 3160 ml Output Total 1850 ml Balance 1310 ml Capillary Refill : General Appearance: No Apparent Distress, WD/WN, Chronically ill, Obese Respiratory: Chest Non Tender, Lungs Clear, Normal Breath Sounds, No Accessory Muscle Use, No Respiratory Distress Cardiovascular: Regular Rate, Rhythm, No Edema, No Murmur, Normal Peripheral Pulses Peripheral Pulses: 2+ Radial Pulses (L) Gastrointestinal: non tender, soft, no organomegaly Extremity: No Calf Tenderness, Other (Ulcer on knee dressed and wrapped. No leaking through. ) Neurologic/Psychiatric: Alert, Oriented x3 Skin: Normal Color, Warm/Dry, Other (Decubitus ulcer on sacreal area still odorous, Dressing in place with no leaking through. ) Lymphatic: No Adenopathy Results Lab Laboratory Tests 08/14/20 10:55: Glucometer 131H 08/14/20 15:26: Glucometer 121H 08/14/20 20:25: Glucometer 125H 08/15/20 06:33: Glucometer 116H Assessment/Plan Assessment/Plan Assessment/Plan 1. Decubitis Ulcer - Sacral, Knee, face -Continue Dakins for sacral ulcer. Will go tomorrow for surgical debreidment. In meantime, continue to change dressing when soiled. -Continue Sonofyl on knee, betadine on facial scab, Continue dressing changes. 2. DM -Continue Home meds and glucose checks MARK SANTILLAN DO 08/15/20 1246: Subjective Time Seen by a Provider: 11:02 Subjective/Events-last exam Pt seen and examined, no changes. Nurse states there is still a large amount of drainage from sacral decub. Review of Systems General: No Chills; Fatigue HEENT: No Head Aches, No Visual Changes Pulmonary: No Dyspnea Cardiovascular: No: Chest Pain, Palpitations, Edema Gastrointestinal: No: Nausea, Vomiting, Abdominal Pain, Diarrhea, Constipation Genitourinary: No Dysuria, No Hematuria Objective Exam General Appearance: No Apparent Distress, Chronically ill, Obese Respiratory: Lungs Clear, Normal Breath Sounds, No Accessory Muscle Use, No Respiratory Distress Cardiovascular: Regular Rate, Rhythm, No Murmur Gastrointestinal: non tender, soft, no organomegaly Extremity: No Calf Tenderness, Other (Ulcer on knee dressed and wrapped. No leaking through. ) Neurologic/Psychiatric: Alert, Oriented x3 Skin: Other (Decubitus ulcer on sacreal area still odorous, Dressing in place with no leaking through. ) Assessment/Plan Assessment/Plan Assessment/Plan 1. Decubitis Ulcer - Sacral, Knee, face -Continue Dakins for sacral ulcer. Will go tomorrow for surgical debreidment. In meantime, continue to change dressing when soiled. -Continue Sanofyl on knee, betadine on facial scab, Continue dressing changes. 2. DM -Continue Home meds and glucose checks Supervisory-Addendum Brief Verification & Attestation Participated in pt care: history, MDM, physical Personally performed: exam, history, MDM Care discussed with: Medical Student Procedures: n/a Verification and Attestation of Medical Student E/M Service A medical student performed and documented this service. I then reviewed and verified all information documented by the medical student and made modifications to such information, when appropriate. I personally performed a physical exam, medical decision making and then discussed any differences between the notes and made revisions as necessary to create one note. Mark Santillan , 08/15/20 , 12:46 KADEN SHARMA MED STUDENT Aug 15, 2020 08:21 MARK SANTILLAN DO Aug 15, 2020 12:46
--- NOTE | 2020-08-15 09:01 | Physical Therapy Daily Note ---
PT Daily Note-Current Subjective Patient in bed pre tx, agrees to PT, has unrated pain in both feet and sacral area. Will be co-treating with OT due to poor patient mobility, strength, endurance, severe pain with activity, coordinate UE and LE with activity, safety and reduce risk of falls. Appearance Patient in bed post tx, will continue for a bit with OT Mental Status Patient Orientation: Person, Place, Situation Attachments: IV Transfers SCALE: Activities may be completed with or without assistive devices. 7-Bbqtfrwspf-flvtcri completes the activity by him/herself with no assistance from a helper. 5-Set-up or Clean-up Assistance-helper sets up or cleans up; patient completes activity. [place] assists only prior to or following the activity. 4-Supervision or Touching Assistance-helper provides verbal cues and/or touching/steadying and/or contact guard assistance as patient completes activity. Assistance may be provided throughout the activity or intermittently. 3-Partial/Moderate Assistance-helper does LESS THAN HALF the effort. [place] lifts, holds or supports trunk or limbs, but provides less than half the effort. 2-Substantial/Maximal Assistance-helper does MORE THAN HALF the effort. [place] lifts or holds trunk or limbs and provides more than half the effort. 3-Slmybqzms-hdwhed does ALL the effort. Patient does none of the effort to complete the activity. Or, the assistance of 2 or more helpers is required for the patient to complete the activity. If activity was not attempted, code reason: 7-Patient Refused. 9-Not Applicable-not attempted and the patient did not perform the activity before the current illness, exacerbation or injury. 10-Not Attempted due to Environmental Limitations-(lack of equipment, weather restraints, etc.). 88-Not Attempted due to Medical Conditions or Safety Concerns. Roll Left & Right (QC): 3 Sit to Lying (QC): 3 Lying to Sitting/Side of Bed(Q: 3 Sit to Stand (QC): 1 Min assist for rolling, mod assist for supine <-> sit. Sit to stand machine transfer to and the same back to bed. After getting into patient performed some ADl's and bathing. Wheelchair Training Does the Pt Use a Wheelchair?: Yes Wheel 50 ft with 2 turns (QC): 2 Wheel 150 ft (QC): 2 Type of Wheelchair: Manual 200' total, max assist, patient is able to assist a little with his right hand Treatments PT performed bed mobility and transfers, rolling, WC mobility, safety and positioning during ADl's and bathing, OT performed ADl's and bathing, UE positioning and safety during activity Assessment Current Status: Poor Progress no change in mobility PT Short Term Goals Short Term Goals Time Frame: Aug 17, 2020 Roll Left & Right: 4 Sit to lyin Lying to sitting on side of be: 2 Sit to stand: 1 Chair/zna-vu-dcgzk transfer: 1 PT Skilled Nursing Goals Email Marketing Assistant Goals PT Skilled Nursing Goals Time Frame: Aug 31, 2020 Roll Left & Right (QC): 6 Sit to Lying (QC): 3 Lying-Sitting on Side/Bed(QC): 3 Sit to Stand (QC): 2 Chair/Zkp-sw-Pcjis Xfer(QC): 2 Toilet Transfer (QC): 2 Car Transfer (QC): 1 Does the Patient Walk: No and Walking Goal NOT indicated Walk 10 feet (QC): 88 Walk 50ft with 2 Turns (QC): 88 Walk 150 ft (QC): 88 Walking 10ft on Uneven Surface: 88 1 Step (curb) (QC): 88 4 Steps (QC): 88 12 Steps (QC): 88 Picking up an Object (QC): 88 Wheel 50 feet with 2 turns (QC: 3 Wheel 150 feet: 3 PT Plan Problem List Problem List: Activity Tolerance, Functional Strength, Safety, Balance, Gait, Transfer, Bed Mobility, ROM Treatment/Plan Treatment Plan: Continue Plan of Care Treatment Plan: Bed Mobility, Education, Functional Activity Héctor, Functional Strength, Group Therapy, Gait, Safety, Therapeutic Exercise, Transfers Treatment Duration: Aug 31, 2020 Frequency: Estimated Hrs Per Day: 1 hour per day Patient and/or Family Agrees t: Yes Safety Risks/Education Patient Education: Transfer Techniques, Correct Positioning, W/C Management, Safety Issues Teaching Recipient: Patient Teaching Methods: Demonstration, Discussion Response to Teaching: Reinforcement Needed Time/GCodes Time In: 0800 Time Out: 0900 Total Billed Treatment Time: 60 Total Billed Treatment 1 visit FA 60 co-treat with OT for 45 min from [id number] LYNDSAY PERRY PT Aug 15, 2020 09:01
--- NOTE | 2020-08-15 09:30 | Occupational Ther Daily Note ---
OT Current Status-Daily Note Subjective Pt. reports pain in his legs with use of sit-stand lift during transfers. Pt. does not report pain and pain subsides when pt. is not on lift. Pt. has had pain medication. Mental Status/Objective Patient Orientation: Person, Place ADL-Treatment Therapy Code Descriptions/Definitions Functional [place] Measure: 0=Not Assessed/NA 4=Minimal Assistance 1=Total Assistance 5=Supervision or Setup 2=Maximal Assistance 6=Modified [place] 3=Moderate Assistance 7=Complete IndependenceSCALE: Activities may be completed with or without assistive devices. 1-Dvocnxkunc-xadsygf completes the activity by him/herself with no assistance from a helper. 5-Set-up or Clean-up Assistance-helper sets up or cleans up; patient completes activity. [place] assists only prior to or following the activity. 4-Supervision or Touching Assistance-helper provides verbal cues and/or touching/steadying and/or contact guard assistance as patient completes activity. Assistance may be provided throughout the activity or intermittently. 3-Partial/Moderate Assistance-helper does LESS THAN HALF the effort. [place] lifts, holds or supports trunk or limbs, but provides less than half the effort. 2-Substantial/Maximal Assistance-helper does MORE THAN HALF the effort. [place] lifts or holds trunk or limbs and provides more than half the effort. 0-Bubpzobbd-xzieue does ALL the effort. Patient does none of the effort to complete the activity. Or, the assistance of 2 or more helpers is required for the patient to complete the activity. If activity was not attempted, code reason: 7-Patient Refused. 9-Not Applicable-not attempted and the patient did not perform the activity before the current illness, exacerbation or injury. 10-Not Attempted due to Environmental Limitations-(lack of equipment, weather restraints, etc.). 88-Not Attempted due to Medical Conditions or Safety Concerns. Oral Hygiene (QC): 3 (Min assist to brush teeth sitting in wheelchair at sink. Pt. wears wrist brace for support, and uses built up foam on toothbrush.) Shower/Bathe Self (QC): 2 (Pt. is able to wash face when washcloth is placed in hand while sitting up in chair. Pt. washes back, arms, under arms and chest. Pt. is transferred to bed with sit-stand lift. Pt. is able to wash front adolfo area with assistance. OT washes all other parts, including feet and hands.) On/Off Footwear: 1 Other Treatment Pt. seen for partial co-treatment with PT due to need of skilled assist x 2. PT focuses on foot placement, wheelchair mobility, and transfers while OT focuses on ADL skills, hand placement during wheelchair mobility, and UE ROM. After pt. is transferred to wheelchair via sit-stand lift, he is taken to therapy gym. OT applies a second wrist brace to left wrist, in hopes that this will stabilize bilateral wrists for wheelchair propulsion. Pt. attempts with max cues, but is unable to use left UE. Pt. does a little propulsion with right UE, with assist for wheelchair push. Pt. completes bilateral UE AROM to available ranges. Pt. able to flex shoulders approximately 90 degrees. Pt. able to move bilateral elbows to bring hands to mouth. No active wrist extension. Pt. greatly encouraged to complete as many AROM exercises on his own when in bed. Pt. also educated again about importance of body awareness, and importance of him making sure that he isn't laying on one part too long. Pt. verbalizes understanding. Pt. in bed on side with call light in place and all needs met. Education OT Patient Education: Correct positioning, Exercise program, Modified ADL techniques, Progress toward Goal/Update tx plan, Purpose of tx/functional activities, Reviewed precautions, Rehab process, Transfer techniques Teaching Recipient: Patient Teaching Methods: Demonstration, Discussion Response to Teaching: Verbalize Understanding, Return Demonstration OT Short Term Goals Short Term Goals Eatin Oral hygiene: 3 Toileting hygiene: 2 Shower/bathe self: 2 Upper body dressin Lower body dressin Putting on/taking off footwear: 2 OT Mcfp Goals Almond Grinder Goals Time Frame: Aug 31, 2020 Eating (QC): 6 Oral Hygiene (QC): 6 Toileting Hygiene (QC): 4 Shower/Bathe Self (QC): 4 Upper Body Dressing (QC): 6 Lower Body Dressing (QC): 4 On/Off Footwear (QC): 4 Additional Goals: 1-Demonstrate ADL Tasks, 2-Verbalize Understanding, 3- ImproveStrength/Héctor 1=Demonstrate adherence to instructed precautions during ADL tasks. 2=Patient will verbalize/demonstrate understanding of assistive devices/modifications for ADL. 3=Patient will improve strength/tolerance for activity to enable patient to perform ADL's. OT Education/Plan Problem List/Assessment Assessment: Decreased Activ Tolerance, Decreased UE Strength, Dependent Transfers, Impaired Bed Mobility, Impaired Funct Balance, Impaired I ADL's, Impaired Self-Care Skills, Restricted Funct UE ROM Discharge Recommendations Plan/Recommendations: Continue POC Therapy Discharge Recommendati: Post Acute OT Treatment Plan/Plan of Care Treatment,Training & Education: Yes Patient would benefit from OT for education, treatment and training to promote independence in ADL's, mobility, safety and/or upper extremity function for ADL's. Plan of Care: ADL Retraining, Caregiver Training, Concurrent Therapy, Functional Mobility, Group Exercise/Act as Ind, Orthotic Fitting/Training, UE Funct Exercise/Act, UE Neuromus Re-Ed/Coord, W/C Management Training Treatment Duration: Aug 31, 2020 Frequency: Modified Program (IRF) Estimated Hrs Per Day: 1 hour per day (Covid Waiver) Agreement: Yes Rehab Potential: Fair Time/GCodes Start Time: 08:10 Stop Time: 09:15 Total Time Billed (hr/min): 65 Billed Treatment Time 6139-9814 1, FA x 30minutes, ADL x [id number] with PT. Please see above note for designated roles. [id number] ADL x 15minutes SWATI DOS SANTOS OT Aug 15, 2020 09:30
[2020-08-15] MEDS: LACTATED RINGERS 1,000 ML IV SCH ×2 (09:46→21:27)
[2020-08-15] MEDS: DAKIN'S 1/4 STRENGTH (0.125%) 473 ML BTL TOP SCH ×2 (09:46→21:19)
[2020-08-15] MEDS: COLLAGENASE 30 GM (SANTYL) TUBE TP SCH ×2 (09:46→21:27)
--- NOTE | 2020-08-15 09:49 | PM&R Progress Note ---
Subjective HPI/CC On Admission Date Seen by Provider: Aug 15, 2020 Time Seen by Provider: 08:45 Subjective/Events-last exam 08/15/20: Patient doing well Up in wheelchair doing therapy outside room Dr Santillan will debride the wound tomorrow Home meds from mother will be sent to [facility] and restarted if indicated BP ok Tachycardia remains but stable 08/14/20:' Awaiting plan from Dr Santillan regarding the wound on coccyx Odor is present No pain reported by patient except neuropathy BM+ Retime Lovenox 08/13/20: Patient doing well Apathy Patient states he is homesick BM large today IVF maintained 08/12/20: Patient doing better Neuropathy of feet an issue so we discussed it Fentanyl and Oxycodone and Gabapentin BM+ 08/1008/11/20: Patient doing well Decubitus ulcer managed by Dr Santillan Continent Ivan lift Checked meds and labs Review of Systems General: Fatigue, Malaise Neurological: Weakness Objective Exam Vital Signs Vital Signs Date Time Temp Pulse Resp B/P (MAP) Pulse Ox O2 Delivery O2 Flow Rate FiO2 08/15/20 20:00 Room Air 08/15/20 16:03 36.1 109 16 138/86 (103) 96 Capillary Refill : General Appearance: No Apparent Distress, WD/WN, Chronically ill, Obese HEENT: PERRL/EOMI, Normal ENT Inspection, Pharynx Normal Neck: Full Range of Motion, Normal Inspection, Non Tender, Supple Respiratory: Chest Non Tender, Lungs Clear, Normal Breath Sounds, No Accessory Muscle Use, No Respiratory Distress Cardiovascular: Regular Rate, Rhythm, No Edema, No Murmur, Normal Peripheral Pulses Gastrointestinal: Normal Bowel Sounds, No Organomegaly, No Pulsatile Mass, Non Tender, Soft Back: Normal Inspection, No CVA Tenderness, No Vertebral Tenderness Extremity: No Calf Tenderness, Other (Ulcer on knee dressed and wrapped. No leaking through. ) Neurologic/Psychiatric: Alert, Oriented x3, counter roller II-XII Norm as Tested, Depressed Affect, Motor Weakness (generalized) Skin: Normal Color, Warm/Dry, Other (Decubitus ulcer on sacreal area still odorous, Dressing in place with no leaking through. ) Lymphatic: No Adenopathy Results/Procedures Lab Patient resulted labs reviewed. FIM Transfers Therapy Code Descriptions/Definitions Functional [place] Measure: 0=Not Assessed/NA 4=Minimal Assistance 1=Total Assistance 5=Supervision or Setup 2=Maximal Assistance 6=Modified [place] 3=Moderate Assistance 7=Complete IndependenceSCALE: Activities may be completed with or without assistive devices. 2-Ccanlkqsva-pcmkfph completes the activity by him/herself with no assistance from a helper. 5-Set-up or Clean-up Assistance-helper sets up or cleans up; patient completes activity. [place] assists only prior to or following the activity. 4-Supervision or Touching Assistance-helper provides verbal cues and/or touching/steadying and/or contact guard assistance as patient completes activity. Assistance may be provided throughout the activity or intermittently. 3-Partial/Moderate Assistance-helper does LESS THAN HALF the effort. [place] lifts, holds or supports trunk or limbs, but provides less than half the effort. 2-Substantial/Maximal Assistance-helper does MORE THAN HALF the effort. [place] lifts or holds trunk or limbs and provides more than half the effort. 3-Brtqymteh-zhfsxo does ALL the effort. Patient does none of the effort to complete the activity. Or, the assistance of 2 or more helpers is required for the patient to complete the activity. If activity was not attempted, code reason: 7-Patient Refused. 9-Not Applicable-not attempted and the patient did not perform the activity before the current illness, exacerbation or injury. 10-Not Attempted due to Environmental Limitations-(lack of equipment, weather restraints, etc.). 88-Not Attempted due to Medical Conditions or Safety Concerns. Roll Left to Right (QC): 3 Sit to Lying (QC): 3 Sit to Stand (QC): 1 Chair/Wbo-xo-Lhetd Xfer(QC): 1 Car Transfer (QC): 1 Gait Training Does the Patient Walk?: No and Walking Goal NOT indicated Walk 10 feet (QC): 88 Walk 50 ft with 2 Turns(QC): 88 Walk 150 ft (QC): 88 Walking 10ft/uneven surface-QC: 88 Wheelchair Training Does the Pt Use a Wheelchair?: Yes Wheel 50 ft with 2 turns (QC): 2 Wheel 150 ft (QC): 2 Type of Wheelchair: Manual Stair Training 1 Step (curb) (QC): 88 4 Steps (QC): 88 12 Steps (QC): 88 Balance Picking up an Object (QC): 88 ADL-Treatment Eating (QC): 3 Oral Hygiene (QC): 3 (Min assist to brush teeth sitting in wheelchair at sink. Pt. wears wrist brace for support, and uses built up foam on toothbrush.) Shower/Bathe Self (QC): 2 (Pt. is able to wash face when washcloth is placed in hand while sitting up in chair. Pt. washes back, arms, under arms and chest. Pt. is transferred to bed with sit-stand lift. Pt. is able to wash front adolfo area with assistance. OT washes all other parts, including feet and hands.) Upper Body Dressing (QC): 7 Lower Body Dressing (QC): 1 (based on current abilities, will require Ax2 for donning/ doffing undergarments/ pants.) On/Off Footwear (QC): 1 Toileting Hygiene (QC): 7 Assessment/Plan Assessment and Plan Assess & Plan/Chief Complaint Assessment:: Myopathy COVID-19 PNA 06/03/20 Hypoxia Morbid obesity HTN HLP Developmental delay/autism Decubitus ulcers coccyx and left knee Tachycardia consulted Dr Jo-Ann de la rosa hypovolemia so started IVF Plan: Wound care IRF protocol Home meds Pain meds 08/11/20: Monitor closely Decubitus ulcer management 08/12/20: Monitor closely IVF NS Monitor tachycardia Supportive care 08/13/20: IVF Monitor closely 08/14/20: Await wound care plan Monitor closely Continue IVF 08/15/20: Debridement tomorrow Check labs in morning Home meds (1) Myopathy (2) Pneumonia due to 2019 novel coronavirus Status: Acute (3) Morbid obesity Status: Chronic (4) Hypoxia Status: Acute (5) T2DM (type 2 diabetes mellitus) Status: Acute HEMANTH DODD DO Aug 15, 2020 09:49
[2020-08-15] MEDS: polyethylene glycoL POWDER 17 GM (MIRALAX) PACK PO SCH ×2 (09:56→19:41)
[2020-08-15] MEDS: SENNA W/DOCUSATE (SENOKOT S) TABLET PO SCH ×2 (09:56→21:26)
[2020-08-15] MEDS: DOCUSATE SODIUM 100 MG (COLACE) CAP PO SCH ×2 (09:56→21:24)
[2020-08-15] MEDS: SENNOSIDES 8.6 MG (SENOKOT) TAB PO SCH ×2 (09:57→19:42)
[2020-08-15] MEDS ORDERED: HYDR50TA6 PO (11:48)
[2020-08-15] MEDS ORDERED: BREX0.5T PO (11:48)
[2020-08-15] MEDS ORDERED: PIOG30TA71 PO (11:48)
[2020-08-15] MEDS ORDERED: ROSU20TA32 PO (11:48)
[2020-08-15] MEDS ORDERED: GEMF600T88 PO (11:48)
[2020-08-15] MEDS ORDERED: DULA0.75 SQ (11:48)
[2020-08-15] MEDS ORDERED: MONT10TA32 PO (11:48)
[2020-08-15] MEDS ORDERED: CETI10TA17 PO (11:48)
[2020-08-15] MEDS ORDERED: CANA1TAB6 PO (11:49)
[2020-08-15] MEDS ORDERED: ALBU18HF2 INH (11:59)
--- NOTE | 2020-08-15 12:31 | Cardiology Progress Note ---
Subjective Date Seen by Provider: Aug 15, 2020 Time Seen by Provider: 08:00 Subjective/Events-last exam patient was seen at bedside, laying down comfortably, still having shortness of breath and limited ability to exercise Review of Systems General: No Chills, No Night Sweats; Fatigue, Malaise; No Appetite, No Other HEENT: No Head Aches, No Visual Changes, No Eye Pain, No Ear Pain, No Dysphasia, No Sinus Congestion, No Post Nasal Drip, No Sore Throat, No Other Pulmonary: Dyspnea; No Cough, No Pleuritic Chest Pain, No Other Cardiovascular: No: Chest Pain, Palpitations, Orthopnea, Paroxysmal Noc. Dyspnea, Edema, Lt Headedness, Other Objective-Cardiology Exam Last Set of Vital Signs Vital Signs 08/15/20 08/15/20 08/15/20 06:43 07:55 09:18 Temp 36.2 Pulse 112 Resp 17 B/P (MAP) 126/86 (99) Pulse Ox 93 O2 Delivery Room Air Capillary Refill : I&O Intake and Output 08/15/20 00:00 Intake Total 3360 ml Output Total 3150 ml Balance 210 ml Intake Oral 1400 ml IV Total 1960 ml Output Urine Total 3150 ml # Bowel Movements 1 General: Alert, Oriented X3, Cooperative HEENT: Atraumatic, PERRLA Neck: Supple, No JVD, No Thyromegaly Lungs: Clear to Auscultation, Normal Air Movement Heart: Regular Rate, Normal S1, Normal S2, No Murmurs Abdomen: Normal Bowel Sounds, Soft, No Tenderness, No Hepatosplenomegaly, No Masses Extremities: No Clubbing, No Cyanosis, Normal Pulses, No Tenderness/Swelling Skin: No Rashes, No Significant Lesion, Other (multiple decubitus ulcers) Neuro: Normal Speech Psych/Mental Status: Mental Status NL, Other (depressed mood) A/P-Cardiology Admission Diagnosis Sinus tachycardia Hypertension Hyperlipidemia Diabetes mellitus Assessment/Plan Sinus tachycardia, probably due to hypovolemia, continue to hold Lasix and encourage fluid intake and monitor tolerance and response. Critical illness myopathy, receiving physical therapy, managed by primary care team Decubitus ulcers, managed by primary care team Hypertension, monitor blood pressure Hyperlipidemia, monitor lipids Diabetes mellitus, followed and managed by primary care physician Multiple decubitus ulcer, sacral, on the face and on his knee, managed by primary care team Patient is maintained on Lovenox for DVT prophylaxis ERIN NG MD Aug 15, 2020 12:31
--- NOTE | 2020-08-15 13:27 | ST Cognitive Linguistic Eval ---
Speech Evaluation-General Medical Diagnosis Debility post COVID and intubation Onset Date: Jun 08, 2020 Therapy Diagnosis Therapy Diagnosis: Cognitive-communication Referral Referring Physician: Dr. Farr Medical History Pertinent Medical History: DM, HTN Patient is autistic Reviewed History: Yes Social History Current Living Status: Other Family (mom and dad) Speech PLF-Current Status Prior Level of Function Prior to COVID patient lived alone and was independent for his daily needs. He was unemployed at that time. Subjective Patient was cooperative with the assessment Language Eval: Auditory Comprehends Simple Yes/No Ques: Functional Indent/Objects Multiple [place]: Functional Ident/Pics in Multiple [place]: Functional Follows 1-Step Commands: Functional Follows Complex Directions: Functional Follows General Conversations: Mild Patient does occasionally exhibit some random conversation interjections. Language Eval: Verbal Language Completes Spontaneous Greeting: Functional Produces Auto, Serial Info: Functional Imitates Simple Words/Phrases: Functional Word Finding: Functional Requests Basic Needs: Functional States Basic Personal Info: Functional Expresses Complex Ideas: Mild Objective Cognitive Domain Attention: Mild Objective Formal/Standardized Tests Informal speech tasks, conversation, interview, chart review Results Patient does exhibit some abnormal speech responses, presumed to be due to autism Oral Motor/Speech Production Within Normal Range Impression Patient is a 34 y/o male who has had a difficult recovery from COVID. Patient was initially assessed with the SLUMS which he passes WN. Patient was referred for followup by Dr. Farr so that he could receive ST to meet baseline needs. Patient states his interests are computers, sandeep and robots. The patient does exhibit some abnormal behaviors with communication with probability due to autism. The patient is noted to interject random topics during conversation. The patient will begin receiving ST to address deficits so that he may be safer with other therapies and return home safer. Speech Patient Assess Expression of Ideas/Wants: Expression (4) Understanding Verbal Content: Understands (4) Brief Interview-Mental Status: Yes Repetition of Three Words: Three (3) Temporal Orientation: Year: Correct (3) Temporal Orientation: Month: Accurate within 5 days(2) Temporal Orientation: Day: Correct (1) Recall : Wear to say "Sock": Yes,after cueing (1) Recall : Color: Yes, after cueing (1) Recall : Bed: Yes, no cue required (2) Memory/Recall Ability: Current season, Location of own room, That he or she is in a hsp/hsp unit Speech Short Term Goals Short Term Goals Short Term Goals 1) Patient will complete memory tasks related to his daily needs at 90% or greater. 2) Patient will complete safety awareness tasks related to his daily needs at 90% or greater. 3) Patient will complete problem solving tasks related to his daily needs at 90% or greater. Speech Mirror Installer Goals Mirror Installer Goals Patient will improve cognitive-communication necessary for safety and daily living tasks with minimal assist. Speech-Plan Patient/Family Goals Patient/Family Goals: Patient will discharge to his parents home so that they can assist him with his daily needs. Treatment Plan Speech Therapy Treatment Plan: Continue Plan of Care Treatment Duration: Aug 10, 2020 Frequency: 4 times per week (Patient will receive skilled ST 4-5x per week) Estimated Hrs Per Day: .5 hour per day Rehab Potential: Fair Barriers to Learning: Patient's debility due to COVID recovery Pt/Family Agrees to Plan: Yes Safety Risks/Education Teaching Recipient: Patient Teaching Methods: Discussion Response to Teaching: Verbalize Understanding Education Topics Provided: Safety within his room, communication of wants/needs Time Speech Therapy Time In: 13:15 Speech Therapy Time Out: 13:45 Total Billed Time: 30 Billed Treatment Time 1, AUGIE TENA BETHANIA ST Aug 15, 2020 13:26
--- NOTE | 2020-08-15 14:38 | Physical Therapy Daily Note ---
PT Daily Note-Current Subjective Pt lying in supine pre tx, and consented to participate in PT. Pt had mild complaints of pain 2/10 in bilateral feet and sacral area. Appearance Pt left in bed post tx to eat lunch, and call button was placed within reach. Mental Status Patient Orientation: Person, Place, Eyes Open, Situation Attachments: IV Transfers SCALE: Activities may be completed with or without assistive devices. 6-Pqxxlrmnff-lymyrpe completes the activity by him/herself with no assistance from a helper. 5-Set-up or Clean-up Assistance-helper sets up or cleans up; patient completes activity. [place] assists only prior to or following the activity. 4-Supervision or Touching Assistance-helper provides verbal cues and/or touching/steadying and/or contact guard assistance as patient completes activity. Assistance may be provided throughout the activity or intermittently. 3-Partial/Moderate Assistance-helper does LESS THAN HALF the effort. [place] lifts, holds or supports trunk or limbs, but provides less than half the effort. 2-Substantial/Maximal Assistance-helper does MORE THAN HALF the effort. [place] l ifts or holds trunk or limbs and provides more than half the effort. 2-Tnotiopzr-zagmpx does ALL the effort. Patient does none of the effort to complete the activity. Or, the assistance of 2 or more helpers is required for the patient to complete the activity. If activity was not attempted, code reason: 7-Patient Refused. 9-Not Applicable-not attempted and the patient did not perform the activity before the current illness, exacerbation or injury. 10-Not Attempted due to Environmental Limitations-(lack of equipment, weather restraints, etc.). 88-Not Attempted due to Medical Conditions or Safety Concerns. Roll Left & Right (QC): 4 Exercises Supine Ex: Ankle pumps, Quad Set, Glut sets, Heel Slides, Short Arc Quads (Large blue bolster placed under knees), Straight leg raise (AAROM), Hip abd/add Supine Reps: 15 Treatments Bed mobility, LE ROM and strengthening Assessment Current Status: Fair Progress Pt demonstrated improved endurance and pain tolerance with bed mobility exercises, and required fewer rest breaks during each set. PT Short Term Goals Short Term Goals Time Frame: Aug 17, 2020 Roll Left & Right: 4 Sit to lyin Lying to sitting on side of be: 2 Sit to stand: 1 Chair/bft-yl-spvpp transfer: 1 PT Skilled Nursing Goals Metal Buggy Operator Goals PT Skilled Nursing Goals Time Frame: Aug 31, 2020 Roll Left & Right (QC): 6 Sit to Lying (QC): 3 Lying-Sitting on Side/Bed(QC): 3 Sit to Stand (QC): 2 Chair/Crg-ra-Pgmdb Xfer(QC): 2 Toilet Transfer (QC): 2 Car Transfer (QC): 1 Does the Patient Walk: No and Walking Goal NOT indicated Walk 10 feet (QC): 88 Walk 50ft with 2 Turns (QC): 88 Walk 150 ft (QC): 88 Walking 10ft on Uneven Surface: 88 1 Step (curb) (QC): 88 4 Steps (QC): 88 12 Steps (QC): 88 Picking up an Object (QC): 88 Wheel 50 feet with 2 turns (QC: 3 Wheel 150 feet: 3 PT Plan Problem List Problem List: Activity Tolerance, Functional Strength, Safety, Balance, Gait, Transfer, Bed Mobility, ROM Treatment/Plan Treatment Plan: Continue Plan of Care Treatment Plan: Bed Mobility, Education, Functional Activity Héctor, Functional Strength, Group Therapy, Gait, Safety, Therapeutic Exercise, Transfers Treatment Duration: Aug 31, 2020 Frequency: Estimated Hrs Per Day: 1 hour per day Patient and/or Family Agrees t: Yes Safety Risks/Education Patient Education: Correct Positioning, Safety Issues Teaching Recipient: Patient Teaching Methods: Demonstration, Discussion Response to Teaching: Verbalize Understanding, Return Demonstration Time/GCodes Time In: 1110 Time Out: 1125 Total Billed Treatment Time: 15 Total Billed Treatment 1 visit Ther Ex: LYNDSAY MANZANARES PT Aug 15, 2020 14:38
--- NOTE | 2020-08-15 14:49 | Occ Therapy Progress Note ---
Therapy Progress Note OT attempted to see pt. this afternoon. Pt. asleep. Does wake up but states that he would like to keep sleeping right now. OT went over hand exercises again with him. Pt. demonstrates flat affect but does verbalize understanding. OT attempts to have pt. participate in hand exercises but pt. states that he would like to rest at this time. Will continue to encourage pt. 1, visit [id number] No charge SWATI DOS SANTOS OT Aug 15, 2020 14:49
[2020-08-15 16:03] VITALS: BP 138/86
[2020-08-15] MEDS: QUEtiapine 25 MG (SEROquel) TAB IMMEDIATE RELEASE PO SCH (21:18)
[2020-08-15] MEDS: TAMSULOSIN 0.4 MG (FLOMAX) CAP PO SCH (21:18)
[2020-08-15] MEDS: MELATONIN 10 MG TABLET PO SCH (21:24)
[2020-08-15 21:25] VITALS: BP 122/71
[2020-08-16] MEDS ORDERED: RT-ALBUTEROL SULF 2.5 MG/3 ML PRE-MIX VIAL INH PRN (05:00)
[2020-08-16 05:01] VITALS: BP 106/60
[2020-08-16 06:03] LABS: BASOPHILS # (AUTO) 0.1 10^3/uL (0.0-0.1); BASOPHILS % (AUTO) 1 % (0-10); EOSINOPHILS # (AUTO) 0.1 10^3/uL (0.0-0.3); EOSINOPHILS % (AUTO) 1 % (0-10); HEMATOCRIT 30 % (40-54); HEMOGLOBIN 9.9 g/dL (13.3-17.7); LYMPHOCYTES # (AUTO) 2.7 10^3/uL (1.0-4.0); LYMPHOCYTES % (AUTO) 27 % (12-44); MEAN CORPUSCULAR HEMOGLOBIN 27 pg (25-34); MEAN CORPUSCULAR HGB CONC 33 g/dL (32-36); MEAN CORPUSCULAR VOLUME 81 fL (80-99); MEAN PLATELET VOLUME 8.3 fL (9.0-12.2); MONOCYTES # (AUTO) 0.9 10^3/uL (0.0-1.0); MONOCYTES % (AUTO) 9 % (0-12); NEUTROPHILS # (AUTO) 6.1 10^3/uL (1.8-7.8); NEUTROPHILS % (AUTO) 62 % (42-75); PLATELET COUNT 438 10^3/uL (130-400)
[2020-08-16 06:29] LABS: ALANINE AMINOTRANSFERASE 26 U/L (0-55); ALBUMIN 3.2 GM/DL (3.2-4.5); ALKALINE PHOSPHATASE 115 U/L (40-136); BILIRUBIN,TOTAL 0.5 MG/DL (0.1-1.0); BUN/CREATININE RATIO 16; CALCIUM 9.4 MG/DL (8.5-10.1); CARBON DIOXIDE 23 MMOL/L (21-32); CHLORIDE 103 MMOL/L (98-107); CREATININE SERUM 0.55 MG/DL (0.60-1.30); GFR ESTIMATED > 60; POTASSIUM 4.3 MMOL/L (3.6-5.0); SODIUM 137 MMOL/L (135-145); TOTAL PROTEIN 6.3 GM/DL (6.4-8.2)
[2020-08-16 06:35] LABS: GLUCOSE 121 MG/DL (70-105)
[2020-08-16] MEDS: MULTIVIT W/MINERALS TAB (THERAGRAN M) PO SCH (07:00)
[2020-08-16] MEDS: inSUlin ASPART (NovoLOG) 1 UNIT/0.01 ML (CHARGE PER UNIT) SC SCH ×4 (07:09→20:55)
--- NOTE | 2020-08-16 07:49 | Progress Note - Surgery ---
EDITHKADEN MED STUDENT 08/16/20 0749: Subjective Date Seen by a Provider: Aug 16, 2020 Time Seen by a Provider: 07:10 Subjective/Events-last exam Patient is awake any lying in bed this morning. States he really doesn't feel pain except in his foot as usual. States his sacral ulcer is still about as tender as it always has been. Nurse states she held his lovenox this morning. He has not had anything to eat or drink today due to surgery. Last BM this morning, no pain or blood noted. Has been doing his PT. Has no questions or concerns this morning. Review of Systems General: No Chills, No Fatigue HEENT: No Head Aches, No Visual Changes Pulmonary: No Dyspnea, No Cough Cardiovascular: No: Chest Pain, Palpitations Gastrointestinal: No: Nausea, Vomiting, Abdominal Pain, Diarrhea, Constipation, Melena, Hematochezia Genitourinary: No Dysuria, No Hematuria Musculoskeletal: foot pain Objective Exam Vital Signs Date Time Temp Pulse Resp B/P (MAP) Pulse Ox O2 Delivery O2 Flow Rate FiO2 08/16/20 07:23 96 Room Air 08/16/20 05:01 36.2 107 20 106/60 (75) 95 08/15/20 21:25 118 122/71 (88) 08/15/20 20:00 Room Air 08/15/20 16:03 36.1 109 16 138/86 (103) 96 08/15/20 09:18 93 Room Air 08/15/20 09:08 Room Air 08/15/20 07:55 126/86 (99) I & O 08/16/20 07:00 Intake Total 2740 ml Output Total 3350 ml Balance -610 ml Capillary Refill : General Appearance: No Apparent Distress, WD/WN, Chronically ill, Obese Respiratory: Chest Non Tender, Lungs Clear, Normal Breath Sounds, No Accessory Muscle Use, No Respiratory Distress Cardiovascular: Regular Rate, Rhythm, No Edema, No Murmur, Normal Peripheral Pulses Peripheral Pulses: 2+ Radial Pulses (L) Gastrointestinal: non tender, soft, no organomegaly Extremity: No Calf Tenderness, Other (Ulcer on knee dressed and wrapped. No leaking through. ) Neurologic/Psychiatric: Alert, Oriented x3, Depressed Affect, Motor Weakness (generalized) Skin: Normal Color, Warm/Dry, Other (Decubitus ulcer on sacreal area still odorous, Dressing in place with no leaking through. ) Lymphatic: No Adenopathy Results Lab Laboratory Tests 08/15/20 10:57: Glucometer 94 08/15/20 15:17: Glucometer 137H 08/15/20 20:09: Glucometer 125H 08/16/20 05:50: White Blood Count 10.0, Red Blood Count 3.72L, Hemoglobin 9.9L, Hematocrit 30L, Mean Corpuscular Volume 81, Mean Corpuscular Hemoglobin 27, Mean Corpuscular Hemoglobin Concent 33, Red Cell Distribution Width 13.9, Platelet Count 438H, Mean Platelet Volume 8.3L, Immature Granulocyte % (Auto) 0, Neutrophils (%) (Auto) 62, Lymphocytes (%) (Auto) 27, Monocytes (%) (Auto) 9, Eosinophils (%) (Auto) 1, Basophils (%) (Auto) 1, Neutrophils # (Auto) 6.1, Lymphocytes # (Auto) 2.7, Monocytes # (Auto) 0.9, Eosinophils # (Auto) 0.1, Basophils # (Auto) 0.1, Immature Granulocyte # (Auto) 0.0, Sodium Level 137, Potassium Level 4.3, Chloride Level 103, Carbon Dioxide Level 23, Anion Gap 11, Blood Urea Nitrogen 9, Creatinine 0.55L, Estimat Glomerular Filtration Rate > 60, BUN/Creatinine Ratio 16, Glucose Level 121H, Calcium Level 9.4, Corrected Calcium 10.0, Total Bilirubin 0.5, Aspartate Amino Transf (AST/SGOT) 17, Alanine Aminotransferase (ALT/SGPT) 26, Alkaline Phosphatase 115, Total Protein 6.3L, Albumin 3.2 Assessment/Plan Assessment/Plan Assessment/Plan 1. Decubitis Ulcer - Sacral, Knee, face -Continue Dakins for sacral ulcer. Will go surgical debreidment today. In meantime, continue to change dressing when soiled. -Continue Sanofyl on knee, betadine on facial scab, Continue dressing changes. 2. DM -Continue Home meds and glucose checks MARK SANTILLAN DO 08/16/20 1343: Subjective Time Seen by a Provider: 13:21 Subjective/Events-last exam Pt seen and examined, no changes. Review of Systems General: No Chills; Fatigue HEENT: No Head Aches, No Visual Changes Pulmonary: No Dyspnea, No Cough Cardiovascular: No: Chest Pain, Palpitations Gastrointestinal: No: Nausea, Vomiting, Abdominal Pain Objective Exam General Appearance: No Apparent Distress, WD/WN Respiratory: Lungs Clear, Normal Breath Sounds, No Accessory Muscle Use, No Respiratory Distress Cardiovascular: Regular Rate, Rhythm, No Murmur Gastrointestinal: non tender, soft, no organomegaly Extremity: Other (Ulcer on knee dressed and wrapped. No leaking through. ) Neurologic/Psychiatric: Depressed Affect, Motor Weakness (generalized) Skin: Other (Decubitus ulcer on sacreal area still odorous, Dressing in place with no leaking through. ) Assessment/Plan Assessment/Plan Assessment/Plan 1. Decubitis Ulcer - Sacral, Knee, face -Continue Dakins for sacral ulcer. Will go surgical debreidment today. In meantime, continue to change dressing when soiled. -Continue Sanofyl on knee, betadine on facial scab, Continue dressing changes. 2. DM -Continue Home meds and glucose checks Supervisory-Addendum Brief Verification & Attestation Participated in pt care: history, MDM, physical Personally performed: exam, history, MDM Care discussed with: Medical Student Procedures: n/a Verification and Attestation of Medical Student E/M Service A medical student performed and documented this service. I then reviewed and verified all information documented by the medical student and made modifications to such information, when appropriate. I personally performed a physical exam, medical decision making and then discussed any differences between the notes and made revisions as necessary to create one note. Mark Santillan , 08/16/20 , 13:43 KADEN SHARMA MED STUDENT Aug 16, 2020 07:49 MARK SANTILLAN DO Aug 16, 2020 13:43
[2020-08-16] MEDS: meTOprolol TARTRATE 50 MG (LOPRESSOR) TAB PO SCH ×2 (09:00→20:46)
[2020-08-16] MEDS: GABAPENTIN 300 MG (NEURONTIN) CAP PO SCH ×3 (09:00→20:47)
[2020-08-16] MEDS: DOCUSATE SODIUM 100 MG (COLACE) CAP PO SCH ×2 (09:00→20:46)
[2020-08-16] MEDS: SENNOSIDES 8.6 MG (SENOKOT) TAB PO SCH ×2 (09:00→20:55)
[2020-08-16] MEDS: cloNIDine 0.1 MG (CATAPRES) TAB PO SCH ×2 (09:00→20:55)
[2020-08-16] MEDS: polyethylene glycoL POWDER 17 GM (MIRALAX) PACK PO SCH ×2 (09:00→20:55)
[2020-08-16] MEDS: SENNA W/DOCUSATE (SENOKOT S) TABLET PO SCH ×2 (09:00→20:47)
[2020-08-16] MEDS: LACTOBACILLUS ACIDOPHILUS (PROBIOTIC) CAPSULE PO SCH ×2 (09:00→20:47)
[2020-08-16] MEDS: GEMFIBROZIL 600 MG (LOPID) TAB PO SCH ×2 (09:00→20:46)
[2020-08-16] MEDS: DAKIN'S 1/4 STRENGTH (0.125%) 473 ML BTL TOP SCH ×2 (09:00→20:55)
[2020-08-16] MEDS: DULoxetine 30 MG (CYMBALTA) CAP PO SCH ×2 (09:00→16:36)
--- NOTE | 2020-08-16 09:21 | Physical Therapy Daily Note ---
PT Daily Note-Current Subjective Pt. in bed on side, c/o he is so thirsty and in pain at sacrum as well as right foot. Pt. shares that he is very sensitive to touch in most places and this was present before this crisis but is now worse. Pt. agrees to PT OT co Rx. "Im having surgery today and Im hungry and thirsty and in pain" Pain Numeric Pain Scale: 5-Moderate Pain Location: Medial Location Body Site: Sacrum (and right foot) Pain Description: Sharp Appearance bilateral foot drop noted, Pt states he had foot cradles/boots at previous facility but is not sure where they are now. Will plan to pursue obtaining these to help prevent further foot drop Mental Status Patient Orientation: Person, Unable to Assess, Time, Situation Transfers SCALE: Activities may be completed with or without assistive devices. 5-Wikfgxelqz-bxbokst completes the activity by him/herself with no assistance from a helper. 5-Set-up or Clean-up Assistance-helper sets up or cleans up; patient completes activity. [place] assists only prior to or following the activity. 4-Supervision or Touching Assistance-helper provides verbal cues and/or touching/steadying and/or contact guard assistance as patient completes activity. Assistance may be provided throughout the activity or intermittently. 3-Partial/Moderate Assistance-helper does LESS THAN HALF the effort. [place] lifts, holds or supports trunk or limbs, but provides less than half the effort. 2-Substantial/Maximal Assistance-helper does MORE THAN HALF the effort. [place] lifts or holds trunk or limbs and provides more than half the effort. 9-Dmmsubdkt-jbcjvl does ALL the effort. Patient does none of the effort to com plete the activity. Or, the assistance of 2 or more helpers is required for the patient to complete the activity. If activity was not attempted, code reason: 7-Patient Refused. 9-Not Applicable-not attempted and the patient did not perform the activity before the current illness, exacerbation or injury. 10-Not Attempted due to Environmental Limitations-(lack of equipment, weather restraints, etc.). 88-Not Attempted due to Medical Conditions or Safety Concerns. Roll Left & Right (QC): 4 multiple trials rolling left and right initially requiring assistance and instruction but after this pt. demonstrated rolling x2 indep slowly. Exercises Supine Ex: Bridging, Ankle pumps (bilat heel cord stretches x 7 ), Quad Set, Rolling, Glut sets, Lower trunk rotation, Heel Slides, Scooting (assisted), Hip abd/add (assisted) Supine Reps: 15 (x2) Treatments PT OT co Rx secondary to extreme low level of function and global weakness, pt. was seen for U&L extremity ther ex as well as gentle stretching of HC 7x 20 sec hold. Pt. was also instructed in bridging, shifting hips and rolling, PT OT coordinated U&L extrem ther ex reciprocally. Pt in slight upright sitting did grooming with OT as PT instructed in maintaining neutral LE and trunk positions as pt. stays in "frog leg " position most times Assessment Current Status: Fair Progress pain and dry mouth as well as hunger limit pt tolerance today PT Short Term Goals Short Term Goals Time Frame: Aug 17, 2020 Roll Left & Right: 4 Sit to lyin Lying to sitting on side of be: 2 Sit to stand: 1 Chair/xfh-ys-ndotj transfer: 1 PT Nursing Home Goals Inner Layer Scrubber Tender Goals PT Nursing Home Goals Time Frame: Aug 31, 2020 Roll Left & Right (QC): 6 Sit to Lying (QC): 3 Lying-Sitting on Side/Bed(QC): 3 Sit to Stand (QC): 2 Chair/Tio-eq-Mkkrx Xfer(QC): 2 Toilet Transfer (QC): 2 Car Transfer (QC): 1 Does the Patient Walk: No and Walking Goal NOT indicated Walk 10 feet (QC): 88 Walk 50ft with 2 Turns (QC): 88 Walk 150 ft (QC): 88 Walking 10ft on Uneven Surface: 88 1 Step (curb) (QC): 88 4 Steps (QC): 88 12 Steps (QC): 88 Picking up an Object (QC): 88 Wheel 50 feet with 2 turns (QC: 3 Wheel 150 feet: 3 PT Plan Treatment/Plan Treatment Plan: Continue Plan of Care Treatment Plan: Bed Mobility, Education, Functional Activity Héctor, Functional Strength, Group Therapy, Gait, Safety, Therapeutic Exercise, Transfers Treatment Duration: Aug 31, 2020 Frequency: Estimated Hrs Per Day: 1 hour per day Patient and/or Family Agrees t: Yes Safety Risks/Education Patient Education: Transfer Techniques, Correct Positioning, Disease Process, Safety Issues Teaching Recipient: Patient Teaching Methods: Demonstration, Discussion Response to Teaching: Verbalize Understanding, Return Demonstration, Reinforcement Needed Time/GCodes Time In: 800 Time Out: 915 Total Billed Treatment Time: 75 Total Billed Treatment 1,EX35m,FA40m (PT OT co Rx 75m) SANDRA IVERSON LACE STRIPPER Aug 16, 2020 09:21
[2020-08-16] MEDS ORDERED: fentaNYL INJ 100 MCG/2 ML AMP IVP PRN (09:30)
--- NOTE | 2020-08-16 09:36 | PM&R Progress Note ---
Subjective HPI/CC On Admission Date Seen by Provider: Aug 16, 2020 Time Seen by Provider: 09:30 Subjective/Events-last exam 08/16/20: Patient having anxiety about upcoming debridement Pain is an issue so increasing IV pain meds temporarily NPO until OR Bday is BM+ VCV may be the DC plan since his parents cannot take care of him 08/15/20: Patient doing well Up in wheelchair doing therapy outside room Dr Santillan will debride the wound tomorrow Home meds from mother will be sent to [facility] and restarted if indicated BP ok Tachycardia remains but stable 08/14/20:' Awaiting plan from Dr Santillan regarding the wound on coccyx Odor is present No pain reported by patient except neuropathy BM+ Retime Lovenox 08/13/20: Patient doing well Apathy Patient states he is homesick BM large today IVF maintained 08/12/20: Patient doing better Neuropathy of feet an issue so we discussed it Fentanyl and Oxycodone and Gabapentin BM+ 08/1008/11/20: Patient doing well Decubitus ulcer managed by Dr Santillan Continent Ivan lift Checked meds and labs Review of Systems Neurological: Weakness, Incoordination Objective Exam Vital Signs Vital Signs Date Time Temp Pulse Resp B/P (MAP) Pulse Ox O2 Delivery O2 Flow Rate FiO2 08/17/20 05:04 36.1 107 20 141/89 (106) 95 08/16/20 20:00 Room Air Capillary Refill : General Appearance: No Apparent Distress, WD/WN, Chronically ill, Obese Respiratory: Chest Non Tender, Lungs Clear, Normal Breath Sounds, No Accessory Muscle Use, No Respiratory Distress Cardiovascular: Regular Rate, Rhythm, No Edema, No Murmur, Normal Peripheral Pulses Gastrointestinal: Normal Bowel Sounds, No Organomegaly, No Pulsatile Mass, Non Tender, Soft Back: Normal Inspection, No CVA Tenderness, No Vertebral Tenderness Extremity: No Calf Tenderness, Other (Ulcer on knee dressed and wrapped. No leaking through. ) Neurologic/Psychiatric: Alert, Oriented x3, Depressed Affect, Motor Weakness (generalized) Skin: Normal Color, Warm/Dry, Other (Decubitus ulcer on sacreal area still odorous, Dressing in place with no leaking through. ) Lymphatic: No Adenopathy Results/Procedures Lab Laboratory Tests 08/16/20 05:50 Patient resulted labs reviewed. FIM Transfers Therapy Code Descriptions/Definitions Functional [place] Measure: 0=Not Assessed/NA 4=Minimal Assistance 1=Total Assistance 5=Supervision or Setup 2=Maximal Assistance 6=Modified [place] 3=Moderate Assistance 7=Complete IndependenceSCALE: Activities may be completed with or without assistive devices. 0-Oznacupaqw-upzkawt completes the activity by him/herself with no assistance from a helper. 5-Set-up or Clean-up Assistance-helper sets up or cleans up; patient completes activity. [place] assists only prior to or following the activity. 4-Supervision or Touching Assistance-helper provides verbal cues and/or touching/steadying and/or contact guard assistance as patient completes activity. Assistance may be provided throughout the activity or intermittently. 3-Partial/Moderate Assistance-helper does LESS THAN HALF the effort. [place] lifts, holds or supports trunk or limbs, but provides less than half the effort. 2-Substantial/Maximal Assistance-helper does MORE THAN HALF the effort. [place] lifts or holds trunk or limbs and provides more than half the effort. 6-Pwzcofjhl-tbdosh does ALL the effort. Patient does none of the effort to complete the activity. Or, the assistance of 2 or more helpers is required for the patient to complete the activity. If activity was not attempted, code reason: 7-Patient Refused. 9-Not Applicable-not attempted and the patient did not perform the activity before the current illness, exacerbation or injury. 10-Not Attempted due to Environmental Limitations-(lack of equipment, weather restraints, etc.). 88-Not Attempted due to Medical Conditions or Safety Concerns. Roll Left to Right (QC): 4 Sit to Lying (QC): 3 Sit to Stand (QC): 1 Chair/Ktu-yz-Aesdi Xfer(QC): 1 Car Transfer (QC): 1 Gait Training Does the Patient Walk?: No and Walking Goal NOT indicated Walk 10 feet (QC): 88 Walk 50 ft with 2 Turns(QC): 88 Walk 150 ft (QC): 88 Walking 10ft/uneven surface-QC: 88 Wheelchair Training Does the Pt Use a Wheelchair?: Yes Wheel 50 ft with 2 turns (QC): 2 Wheel 150 ft (QC): 2 Type of Wheelchair: Manual Stair Training 1 Step (curb) (QC): 88 4 Steps (QC): 88 12 Steps (QC): 88 Balance Picking up an Object (QC): 88 ADL-Treatment Eating (QC): 3 Oral Hygiene (QC): 3 (Min assist to brush teeth sitting in wheelchair at sink. Pt. wears wrist brace for support, and uses built up foam on toothbrush.) Shower/Bathe Self (QC): 2 (Pt. is able to wash face when washcloth is placed in hand while sitting up in chair. Pt. washes back, arms, under arms and chest. Pt. is transferred to bed with sit-stand lift. Pt. is able to wash front adolfo area with assistance. OT washes all other parts, including feet and hands.) Upper Body Dressing (QC): 7 Lower Body Dressing (QC): 1 (based on current abilities, will require Ax2 for donning/ doffing undergarments/ pants.) On/Off Footwear (QC): 1 Toileting Hygiene (QC): 7 Assessment/Plan Assessment and Plan Assess & Plan/Chief Complaint Assessment:: Myopathy COVID-19 PNA 06/03/20 Hypoxia Morbid obesity HTN HLP Developmental delay/autism Decubitus ulcers coccyx and left knee s/p debridement 08/16/20 Dr Santillan Tachycardia consulted Dr Busch dx hypovolemia so started IVF Plan: Wound care IRF protocol Home meds Pain meds 08/11/20: Monitor closely Decubitus ulcer management 08/12/20: Monitor closely IVF NS Monitor tachycardia Supportive care 08/13/20: IVF Monitor closely 08/14/20: Await wound care plan Monitor closely Continue IVF 08/15/20: Debridement tomorrow Check labs in morning Home meds 08/16/20: Monitor pain Debridement today IVF (1) Myopathy (2) Pneumonia due to 2019 novel coronavirus Status: Acute (3) Morbid obesity Status: Chronic (4) Hypoxia Status: Acute (5) T2DM (type 2 diabetes mellitus) Status: Acute HEMANTH DODD DO Aug 16, 2020 09:36
[2020-08-16] MEDS: LACTATED RINGERS 1,000 ML IV SCH (10:12)
--- NOTE | 2020-08-16 10:31 | Occupational Ther Daily Note ---
OT Current Status-Daily Note Subjective Pt. reports pain throughout treatment in right foot and in sacral area. Pt. is repositioned during treatment. Pt. is unable to have pain medication at this time due to upcoming debridement. Mental Status/Objective Patient Orientation: Person, Place ADL-Treatment Therapy Code Descriptions/Definitions Functional [place] Measure: 0=Not Assessed/NA 4=Minimal Assistance 1=Total Assistance 5=Supervision or Setup 2=Maximal Assistance 6=Modified [place] 3=Moderate Assistance 7=Complete IndependenceSCALE: Activities may be completed with or without assistive devices. 5-Gakxtchwtm-cipceic completes the activity by him/herself with no assistance from a helper. 5-Set-up or Clean-up Assistance-helper sets up or cleans up; patient completes activity. [place] assists only prior to or following the activity. 4-Supervision or Touching Assistance-helper provides verbal cues and/or touching/steadying and/or contact guard assistance as patient completes activity. Assistance may be provided throughout the activity or intermittently. 3-Partial/Moderate Assistance-helper does LESS THAN HALF the effort. [place] lifts, holds or supports trunk or limbs, but provides less than half the effort. 2-Substantial/Maximal Assistance-helper does MORE THAN HALF the effort. [place] lifts or holds trunk or limbs and provides more than half the effort. 0-Qspgjvhxj-cuppst does ALL the effort. Patient does none of the effort to complete the activity. Or, the assistance of 2 or more helpers is required for the patient to complete the activity. If activity was not attempted, code reason: 7-Patient Refused. 9-Not Applicable-not attempted and the patient did not perform the activity before the current illness, exacerbation or injury. 10-Not Attempted due to Environmental Limitations-(lack of equipment, weather restraints, etc.). 88-Not Attempted due to Medical Conditions or Safety Concerns. Oral Hygiene (QC): 3 (Min assist to brush teeth while in bed. Please see note.) On/Off Footwear: 1 Other Treatment PT/OT completed partial co-treatment due to need of skilled assist x 2 for mobility. Pt. to have debridement today in sacral area. Therefore, he is unable to have anything by mouth, including pain medication. Pt. verbal that he does not want to get out of bed due to pain with sitting. OT attempts to focus on UE exercises, ROM, and basic ADL skills while PT attempts to assess LE movement and exercise, as well as transfers. Pt. reports that he is very sensitive to touch, and sensitive to certain movement patterns. Pt. does not like for his right foot to be touched, or his skin to be touched in pattern that "moves upward." Have noted that pt. has foot drop and is unable to dorsi-flex bilateral ankles actively. Pt. is also unable to extend bilateral wrists, but is able to tolerate extension passively to neutral position. Pt. is encouraged throughout session to roll side to side in bed, and attempt to reach for bedrails. Pt. is encouraged to attempt more for self, as he will report discomfort and then stop the activity. Pt. is able to tolerate HOB in elevated position so that he can brush hair. OT dons right wrist brace and pt. is able to brush right side of head and back of head. OT brushes rest. Pt. is able to brush teeth with min assist using built up toothbrush. Both OT and PT encourage pt. to continue doing for self in bed, such as attempting to move bilateral UE/LE, roll self, reposition self, etc. Pt. verbalizes understanding. Pt. on side with pillows positioned correctly for pressure relief and comfort. All needs met. Education OT Patient Education: Correct positioning, Exercise program, Modified ADL techniques, Progress toward Goal/Update tx plan, Purpose of tx/functional activities, Reviewed precautions, Rehab process, Transfer techniques Teaching Recipient: Patient Teaching Methods: Demonstration, Discussion Response to Teaching: Verbalize Understanding, Return Demonstration OT Short Term Goals Short Term Goals Eatin Oral hygiene: 3 Toileting hygiene: 2 Shower/bathe self: 2 Upper body dressin Lower body dressin Putting on/taking off footwear: 2 OT Jail Goals Tire Mold Tester Goals Time Frame: Aug 31, 2020 Eating (QC): 6 Oral Hygiene (QC): 6 Toileting Hygiene (QC): 4 Shower/Bathe Self (QC): 4 Upper Body Dressing (QC): 6 Lower Body Dressing (QC): 4 On/Off Footwear (QC): 4 Additional Goals: 1-Demonstrate ADL Tasks, 2-Verbalize Understanding, 3- ImproveStrength/Héctor 1=Demonstrate adherence to instructed precautions during ADL tasks. 2=Patient will verbalize/demonstrate understanding of assistive devices/modifications for ADL. 3=Patient will improve strength/tolerance for activity to enable patient to perform ADL's. OT Education/Plan Problem List/Assessment Assessment: Decreased Activ Tolerance, Decreased UE Strength, Dependent Transfers, Impaired Bed Mobility, Impaired Coordination, Impaired Funct Balance, Impaired I ADL's, Impaired Self-Care Skills, Restricted Funct UE ROM Discharge Recommendations Plan/Recommendations: Continue POC Therapy Discharge Recommendati: Post Acute OT Treatment Plan/Plan of Care Treatment,Training & Education: Yes Patient would benefit from OT for education, treatment and training to promote independence in ADL's, mobility, safety and/or upper extremity function for ADL's. Plan of Care: ADL Retraining, Caregiver Training, Concurrent Therapy, Functional Mobility, Group Exercise/Act as Ind, Orthotic Fitting/Training, UE Funct Exercise/Act, UE Neuromus Re-Ed/Coord, W/C Management Training Treatment Duration: Aug 31, 2020 Frequency: Modified Program (IRF) Estimated Hrs Per Day: 1 hour per day (Covid Waiver) Agreement: Yes Rehab Potential: Fair Time/GCodes Start Time: 08:15 Stop Time: 09:15 Total Time Billed (hr/min): 60 Billed Treatment Time 1, ADL x 15minutes, Ex x 30minutes, FA x 15minutes SWATI DOS SANTOS OT Aug 16, 2020 10:31
[2020-08-16] MEDS: ENOXAPARIN 40 MG/0.4 ML (LOVENOX) SYR SC SCH ×2 (11:00→16:35)
[2020-08-16] MEDS ORDERED: ALPRAZolam 0.25 MG (XANAX) TAB PO PRN (11:15)
[2020-08-16] MEDS ORDERED: HYDROmorphone 2 MG/ML VIAL (DILAUDID) IVP PRN (11:15)
[2020-08-16] MEDS ORDERED: LACTATED RINGERS 1,000 ML IV PRN (12:45)
--- NOTE | 2020-08-16 14:04 | Speech Therapy Progress Note ---
Therapy Progress Note Patient was unavailable for scheduled therapy due to surgical procedure. BRADEN ABDUL Aug 16, 2020 14:04
[2020-08-16] MEDS: fentaNYL PATCH 25 MCG (DURAGESIC) TD SCH (16:00)
[2020-08-16 16:24] VITALS: BP 106/64
[2020-08-16] MEDS: ROSUVASTATIN 20 MG (CRESTOR) TABLET PO SCH (16:35)
[2020-08-16] MEDS: MONTELUKAST 10 MG (SINGULAIR) TAB PO SCH (16:36)
[2020-08-16] MEDS: PIOGLITAZONE 30MG (ACTOS) TAB PO SCH (16:36)
[2020-08-16] MEDS: VITAMIN D3 125 MCG (5,000 UNITS) CAPSULE PO SCH (16:36)
[2020-08-16] MEDS: ASCORBIC ACID (VIT C) 500 MG TABLET PO SCH (16:36)
[2020-08-16] MEDS: LORATADINE (CLARITIN) 10 MG TAB PO SCH (16:36)
[2020-08-16] MEDS ORDERED: PATIENT MAY USE OWN MED,SINGLE MED PO SCH (17:15)
--- NOTE | 2020-08-16 17:43 | Podiatry Progress Note ---
Standard Progress Note Progress Notes/Assess & Plan Date Seen by a Provider: Aug 16, 2020 Time Seen by a Provider: 17:42 Progress/Assessment & Plan Consultation dictated, foot care given. Final Diagnosis Diabetic Neuropathy, Onychomycosis PETROS VILLALPANDO DPWilly Aug 16, 2020 17:43
[2020-08-16] MEDS: COLLAGENASE 30 GM (SANTYL) TUBE TP SCH ×2 (18:03→20:56)
[2020-08-16] MEDS: REXULTI 0.5 MG PO SCH (18:04)
[2020-08-16] MEDS: QUEtiapine 25 MG (SEROquel) TAB IMMEDIATE RELEASE PO SCH (20:46)
[2020-08-16] MEDS: MELATONIN 10 MG TABLET PO SCH (20:47)
[2020-08-16] MEDS: TAMSULOSIN 0.4 MG (FLOMAX) CAP PO SCH (20:47)
[2020-08-16 21:30] VITALS: BP 115/76
[2020-08-17] MEDS: LACTATED RINGERS 1,000 ML IV SCH ×2 (00:39→12:43)
[2020-08-17 05:04] VITALS: BP 141/89
--- NOTE | 2020-08-17 05:57 | PM&R Progress Note ---
Subjective HPI/CC On Admission Date Seen by Provider: Aug 17, 2020 Time Seen by Provider: 08:00 Subjective/Events-last exam 08/17/20: Patient doing well Slow recovery Dressing changes reveal good wound appearance s/p debridement Hgb 9.1 Cymbalta was changed to what his home dose is 08/16/20: Patient having anxiety about upcoming debridement Pain is an issue so increasing IV pain meds temporarily NPO until OR Bday is BM+ VCV may be the DC plan since his parents cannot take care of him 08/15/20: Patient doing well Up in wheelchair doing therapy outside room Dr Santillan will debride the wound tomorrow Home meds from mother will be sent to tech and restarted if indicated BP ok Tachycardia remains but stable 08/14/20:' Awaiting plan from Dr Santillan regarding the wound on coccyx Odor is present No pain reported by patient except neuropathy BM+ Retime Lovenox 08/13/20: Patient doing well Apathy Patient states he is homesick BM large today IVF maintained 08/12/20: Patient doing better Neuropathy of feet an issue so we discussed it Fentanyl and Oxycodone and Gabapentin BM+ 08/1008/11/20: Patient doing well Decubitus ulcer managed by Dr Santillan Continent Ivan lift Checked meds and labs Review of Systems General: Fatigue, Malaise Neurological: Weakness, Incoordination Objective Exam Vital Signs Vital Signs Date Time Temp Pulse Resp B/P (MAP) Pulse Ox O2 Delivery O2 Flow Rate FiO2 08/17/20 20:00 Room Air 08/17/20 18:15 94 08/17/20 16:40 37.0 117 16 105/68 (80) Capillary Refill : General Appearance: No Apparent Distress, WD/WN, Chronically ill, Obese HEENT: PERRL/EOMI, Normal ENT Inspection, Pharynx Normal Neck: Full Range of Motion, Normal Inspection, Non Tender, Supple Respiratory: Chest Non Tender, Lungs Clear, Normal Breath Sounds, No Accessory Muscle Use, No Respiratory Distress Cardiovascular: Regular Rate, Rhythm, No Edema, No Murmur, Normal Peripheral Pulses Gastrointestinal: Normal Bowel Sounds, No Organomegaly, No Pulsatile Mass, Non Tender, Soft Back: Normal Inspection, No CVA Tenderness, No Vertebral Tenderness Extremity: No Calf Tenderness, Other (Ulcer on knee dressed and wrapped. No leaking through. ) Neurologic/Psychiatric: Alert, Oriented x3, right of way supervisor II-XII Norm as Tested, Depressed Affect, Motor Weakness (generalized) Skin: Normal Color, Warm/Dry, Other (Decubitus ulcer on sacreal area still odorous, Dressing in place with no leaking through. ) Lymphatic: No Adenopathy Results/Procedures Lab Laboratory Tests 08/17/20 05:59 Patient resulted labs reviewed. FIM Transfers Therapy Code Descriptions/Definitions Functional [place] Measure: 0=Not Assessed/NA 4=Minimal Assistance 1=Total Assistance 5=Supervision or Setup 2=Maximal Assistance 6=Modified [place] 3=Moderate Assistance 7=Complete IndependenceSCALE: Activities may be completed with or without assistive devices. 5-Lgloldkiek-eyxfvhv completes the activity by him/herself with no assistance from a helper. 5-Set-up or Clean-up Assistance-helper sets up or cleans up; patient completes activity. [place] assists only prior to or following the activity. 4-Supervision or Touching Assistance-helper provides verbal cues and/or touching/steadying and/or contact guard assistance as patient completes activity. Assistance may be provided throughout the activity or intermittently. 3-Partial/Moderate Assistance-helper does LESS THAN HALF the effort. [place] lifts, holds or supports trunk or limbs, but provides less than half the effort. 2-Substantial/Maximal Assistance-helper does MORE THAN HALF the effort. [place] lifts or holds trunk or limbs and provides more than half the effort. 8-Jtakvfkav-vfxdfz does ALL the effort. Patient does none of the effort to complete the activity. Or, the assistance of 2 or more helpers is required for the patient to complete the activity. If activity was not attempted, code reason: 7-Patient Refused. 9-Not Applicable-not attempted and the patient did not perform the activity before the current illness, exacerbation or injury. 10-Not Attempted due to Environmental Limitations-(lack of equipment, weather restraints, etc.). 88-Not Attempted due to Medical Conditions or Safety Concerns. Roll Left to Right (QC): 4 Sit to Lying (QC): 3 Sit to Stand (QC): 1 Chair/Bax-mz-Yjyjj Xfer(QC): 1 Car Transfer (QC): 1 Gait Training Does the Patient Walk?: No and Walking Goal NOT indicated Walk 10 feet (QC): 88 Walk 50 ft with 2 Turns(QC): 88 Walk 150 ft (QC): 88 Walking 10ft/uneven surface-QC: 88 Wheelchair Training Does the Pt Use a Wheelchair?: Yes Wheel 50 ft with 2 turns (QC): 2 Wheel 150 ft (QC): 2 Type of Wheelchair: Manual Stair Training 1 Step (curb) (QC): 88 4 Steps (QC): 88 12 Steps (QC): 88 Balance Picking up an Object (QC): 88 ADL-Treatment Eating (QC): 3 Oral Hygiene (QC): 3 (Min assist to brush teeth while in bed. Please see note.) Shower/Bathe Self (QC): 2 (Pt. is able to wash face when washcloth is placed in hand while sitting up in chair. Pt. washes back, arms, under arms and chest. Pt. is transferred to bed with sit-stand lift. Pt. is able to wash front adolfo area with assistance. OT washes all other parts, including feet and hands.) Upper Body Dressing (QC): 7 Lower Body Dressing (QC): 1 (based on current abilities, will require Ax2 for donning/ doffing undergarments/ pants.) On/Off Footwear (QC): 1 Toileting Hygiene (QC): 7 Assessment/Plan Assessment and Plan Assess & Plan/Chief Complaint Assessment:: Myopathy COVID-19 PNA 06/03/20 Hypoxia Morbid obesity HTN HLP Developmental delay/autism Decubitus ulcers coccyx and left knee s/p debridement 08/16/20 Dr Santillan Tachycardia consulted Dr Busch dx hypovolemia so started IVF Plan: Wound care IRF protocol Home meds Pain meds 08/11/20: Monitor closely Decubitus ulcer management 08/12/20: Monitor closely IVF NS Monitor tachycardia Supportive care 08/13/20: IVF Monitor closely 08/14/20: Await wound care plan Monitor closely Continue IVF 08/15/20: Debridement tomorrow Check labs in morning Home meds 08/16/20: Monitor pain Debridement today IVF 08/17/20: Monitor pain Dressing changes Start weaning down off pain meds (1) Myopathy (2) Pneumonia due to 2019 novel coronavirus Status: Acute (3) Morbid obesity Status: Chronic (4) Hypoxia Status: Acute (5) T2DM (type 2 diabetes mellitus) Status: Acute HEMANTH DODD 18, 2021 05:57
[2020-08-17 06:10] LABS: BASOPHILS % (AUTO) 0 % (0-10); EOSINOPHILS # (AUTO) 0.1 10^3/uL (0.0-0.3); EOSINOPHILS % (AUTO) 1 % (0-10); HEMATOCRIT 29 % (40-54); HEMOGLOBIN 9.1 g/dL (13.3-17.7); LYMPHOCYTES # (AUTO) 2.8 10^3/uL (1.0-4.0); LYMPHOCYTES % (AUTO) 26 % (12-44); MEAN CORPUSCULAR HEMOGLOBIN 26 pg (25-34); MEAN CORPUSCULAR HGB CONC 32 g/dL (32-36); MEAN CORPUSCULAR VOLUME 81 fL (80-99); MEAN PLATELET VOLUME 8.4 fL (9.0-12.2); MONOCYTES # (AUTO) 1.1 10^3/uL (0.0-1.0); MONOCYTES % (AUTO) 11 % (0-12); NEUTROPHILS # (AUTO) 6.7 10^3/uL (1.8-7.8); NEUTROPHILS % (AUTO) 62 % (42-75); PLATELET COUNT 442 10^3/uL (130-400); WHITE BLOOD COUNT 10.7 10^3/uL (4.3-11.0)
[2020-08-17] MEDS: ENOXAPARIN 40 MG/0.4 ML (LOVENOX) SYR SC SCH ×2 (06:19→17:31)
[2020-08-17] MEDS: MULTIVIT W/MINERALS TAB (THERAGRAN M) PO SCH (06:19)
[2020-08-17 06:25] LABS: ALANINE AMINOTRANSFERASE 25 U/L (0-55); ALBUMIN 3.1 GM/DL (3.2-4.5); ALKALINE PHOSPHATASE 107 U/L (40-136); BILIRUBIN,TOTAL 0.4 MG/DL (0.1-1.0); BUN/CREATININE RATIO 12; CALCIUM 9.2 MG/DL (8.5-10.1); CARBON DIOXIDE 23 MMOL/L (21-32); CHLORIDE 103 MMOL/L (98-107); CREATININE SERUM 0.59 MG/DL (0.60-1.30); GFR ESTIMATED > 60; GLUCOSE 132 MG/DL (70-105); POTASSIUM 4.2 MMOL/L (3.6-5.0); SODIUM 137 MMOL/L (135-145); TOTAL PROTEIN 6.2 GM/DL (6.4-8.2)
[2020-08-17] MEDS: inSUlin ASPART (NovoLOG) 1 UNIT/0.01 ML (CHARGE PER UNIT) SC SCH ×4 (06:28→20:15)
--- NOTE | 2020-08-17 07:55 | Progress Note - Surgery ---
EDITHKADEN MED STUDENT 08/17/20 0755: Subjective Date Seen by a Provider: Aug 17, 2020 Subjective/Events-last exam Pt is asleep in bed this morning laying on L side. Is easily roused. States that he is feeling fine today after surgery. States he is in no pain. Has has some food since the surgery and denies and nausea or vomiting after. LBM was yesterday. States that he has not done any PT since the surgery, but it is early in the morning. States his dressing has not yet been changed. Has no other concerns this morning. Nursing states they would like to know what to do for dressing changes. Review of Systems General: No Chills, No Fatigue HEENT: No Head Aches, No Visual Changes Pulmonary: No Dyspnea Cardiovascular: No: Chest Pain, Palpitations Gastrointestinal: No: Nausea, Vomiting, Abdominal Pain, Diarrhea, Constipation Genitourinary: No Dysuria, No Hematuria Musculoskeletal: foot pain; No: leg pain Objective Exam Vital Signs Date Time Temp Pulse Resp B/P (MAP) Pulse Ox O2 Delivery O2 Flow Rate FiO2 08/17/20 05:04 36.1 107 20 141/89 (106) 95 08/16/20 21:30 120 115/76 (89) 08/16/20 20:00 Room Air 08/16/20 18:30 Room Air 08/16/20 16:24 36.8 128 18 106/64 (78) 96 08/16/20 08:41 Room Air I & O 08/17/20 07:00 Intake Total 1650 ml Output Total 4175 ml Balance -2525 ml Capillary Refill : General Appearance: No Apparent Distress, WD/WN, Chronically ill, Obese Respiratory: Chest Non Tender, Lungs Clear, Normal Breath Sounds, No Accessory Muscle Use, No Respiratory Distress Cardiovascular: Regular Rate, Rhythm, No Edema, No Murmur, Normal Peripheral Pulses Peripheral Pulses: 2+ Radial Pulses (L) Gastrointestinal: non tender, soft, no organomegaly Extremity: No Calf Tenderness, Other (Ulcer on knee dressed and wrapped. No leaking through. ) Neurologic/Psychiatric: Alert, Oriented x3, Depressed Affect, Motor Weakness (generalized) Skin: Normal Color, Warm/Dry, Other (Decubitus ulcer on sacral area, Dressing in place with no leaking through. Almost no odor this morning. ) Lymphatic: No Adenopathy Results Lab Laboratory Tests 08/16/20 12:07: Glucometer 106 08/16/20 16:49: Glucometer 101 08/16/20 20:42: Glucometer 130H 08/17/20 05:59: White Blood Count 10.7, Red Blood Count 3.51L, Hemoglobin 9.1L, Hematocrit 29L, Mean Corpuscular Volume 81, Mean Corpuscular Hemoglobin 26, Mean Corpuscular Hemoglobin Concent 32, Red Cell Distribution Width 14.0, Platelet Count 442H, Mean Platelet Volume 8.4L, Immature Granulocyte % (Auto) 1, Neutrophils (%) (Auto) 62, Lymphocytes (%) (Auto) 26, Monocytes (%) (Auto) 11, Eosinophils (%) (Auto) 1, Basophils (%) (Auto) 0, Neutrophils # (Auto) 6.7, Lymphocytes # (Auto) 2.8, Monocytes # (Auto) 1.1H, Eosinophils # (Auto) 0.1, Basophils # (Auto) 0.0, Immature Granulocyte # (Auto) 0.1, Sodium Level 137, Potassium Level 4.2, Chloride Level 103, Carbon Dioxide Level 23, Anion Gap 11, Blood Urea Nitrogen 7, Creatinine 0.59L, Estimat Glomerular Filtration Rate > 60, BUN/Creatinine Ratio 12, Glucose Level 132H, Calcium Level 9.2, Corrected Calcium 9.9, Total Bilirubin 0.4, Aspartate Amino Transf (AST/SGOT) 17, Alanine Aminotransferase (ALT/SGPT) 25, Alkaline Phosphatase 107, Total Protein 6.2L, Albumin 3.1L Assessment/Plan Assessment/Plan Assessment/Plan 1. S/P Sacral Decubitus ulcer debreidment -Check wound for any signs of infection or tissue -Keep wound packed/redress wound if becomes soiled 2. Decubitis Ulcer - Sacral, Knee, face -Continue packing and dressings for sacral ulcer. -Continue Sanofyl on knee, betadine on facial scab, Continue dressing changes. 3. DM -Continue Home meds and glucose checks MARK SANTILLAN DO 08/17/20 1254: Subjective Time Seen by a Provider: 11:57 Subjective/Events-last exam Pt seen and examined, no new complaints. Nurse states there was not much drainage overnight, but she thinks there was some increased drainage this am from wound. Review of Systems General: No Chills; Fatigue HEENT: No Head Aches, No Visual Changes Pulmonary: No Dyspnea Cardiovascular: No: Chest Pain, Palpitations Gastrointestinal: No: Nausea, Vomiting, Abdominal Pain, Diarrhea, Constipation Musculoskeletal: foot pain Objective Exam General Appearance: No Apparent Distress, Chronically ill, Obese Respiratory: Lungs Clear, Normal Breath Sounds, No Accessory Muscle Use, No Respiratory Distress Cardiovascular: Regular Rate, Rhythm, No Murmur Gastrointestinal: non tender, soft, no organomegaly Extremity: No Calf Tenderness Neurologic/Psychiatric: Depressed Affect, Motor Weakness (generalized) Skin: Other (Decubitus ulcer on sacral area, Dressing in place with no leaking through. Almost no odor this morning. ) Assessment/Plan Assessment/Plan Assessment/Plan 1. S/P Sacral Decubitus ulcer debreidment -Check wound for any signs of infection or tissue , change iodophor dressing daily, will order a Theraflo VAC to instill the wound and hopefully increase healing 2. Decubitis Ulcer - Sacral, Knee, face -Continue packing and dressings for sacral ulcer. -Continue Sanofyl on knee, betadine on facial scab, Continue dressing changes. 3. DM -Continue Home meds and glucose checks Supervisory-Addendum Brief Verification & Attestation Participated in pt care: history, MDM, physical Personally performed: exam, history, MDM Care discussed with: Medical Student Procedures: n/a Verification and Attestation of Medical Student E/M Service A medical student performed and documented this service. I then reviewed and verified all information documented by the medical student and made modifications to such information, when appropriate. I personally performed a physical exam, medical decision making and then discussed any differences between the notes and made revisions as necessary to create one note. Mark Santillan , 08/17/20 , 12:53 KADEN SHARMA MED STUDENT Aug 17, 2020 07:55 MARK SANTILLAN DO Aug 17, 2020 12:54
[2020-08-17 08:30] VITALS: BP 120/64
--- NOTE | 2020-08-17 08:55 | Physical Therapy Daily Note ---
PT Daily Note-Current Subjective Patient in bed pre tx, agrees to PT, has 2/10 pain in sacral area, 4/10 pain in both feet. Appearance Patient in WC post tx with OT to continue tx. Mental Status Patient Orientation: Person, Place, Situation Attachments: IV Transfers SCALE: Activities may be completed with or without assistive devices. 7-Mxosnqrwfv-qebvygl completes the activity by him/herself with no assistance from a helper. 5-Set-up or Clean-up Assistance-helper sets up or cleans up; patient completes activity. [place] assists only prior to or following the activity. 4-Supervision or Touching Assistance-helper provides verbal cues and/or touching/steadying and/or contact guard assistance as patient completes activity. Assistance may be provided throughout the activity or intermittently. 3-Partial/Moderate Assistance-helper does LESS THAN HALF the effort. [place] lifts, holds or supports trunk or limbs, but provides less than half the effort. 2-Substantial/Maximal Assistance-helper does MORE THAN HALF the effort. [place] lifts or holds trunk or limbs and provides more than half the effort. 3-Zqcekoxuf-qsftaz does ALL the effort. Patient does none of the effort to complete the activity. Or, the assistance of 2 or more helpers is required for the patient to complete the activity. If activity was not attempted, code reason: 7-Patient Refused. 9-Not Applicable-not attempted and the patient did not perform the activity before the current illness, exacerbation or injury. 10-Not Attempted due to Environmental Limitations-(lack of equipment, weather restraints, etc.). 88-Not Attempted due to Medical Conditions or Safety Concerns. Roll Left & Right (QC): 3 Lying to Sitting/Side of Bed(Q: 3 Sit to Stand (QC): 1 Chair/Xpk-bx-Zszoi Xfer(QC): 1 supine to sit with mod assist, transfer to with sit to stand machine, wheel to therapy gym and partially standing in standing frame for 5 min (calf stretch), WC mobility back to room and LE exercises Wheelchair Training Does the Pt Use a Wheelchair?: Yes Wheel 50 ft with 2 turns (QC): 2 Type of Wheelchair: Manual 100'x2 Exercises Seated Therapy Exercises: Long arc quads, Hip flexion Seated Reps: 15 seated glute sets x15 Treatments PT performed bed mobility and transfers, standing calf stretch in standing frame, LE exercise, WC mobility, OT worked on UE positioning and safety during activity, UE exercise Assessment Current Status: Poor Progress no change in mobility, plantarflexion contractures making progress difficult PT Short Term Goals Short Term Goals Time Frame: Aug 17, 2020 Roll Left & Right: 4 Sit to lyin Lying to sitting on side of be: 2 Sit to stand: 1 Chair/ney-ah-czuha transfer: 1 PT Lathe Scalper Operator Goals Intermediate Goals PT Lathe Scalper Operator Goals Time Frame: Aug 31, 2020 Roll Left & Right (QC): 6 Sit to Lying (QC): 3 Lying-Sitting on Side/Bed(QC): 3 Sit to Stand (QC): 2 Chair/Djp-zz-Nfmkx Xfer(QC): 2 Toilet Transfer (QC): 2 Car Transfer (QC): 1 Does the Patient Walk: No and Walking Goal NOT indicated Walk 10 feet (QC): 88 Walk 50ft with 2 Turns (QC): 88 Walk 150 ft (QC): 88 Walking 10ft on Uneven Surface: 88 1 Step (curb) (QC): 88 4 Steps (QC): 88 12 Steps (QC): 88 Picking up an Object (QC): 88 Wheel 50 feet with 2 turns (QC: 3 Wheel 150 feet: 3 PT Plan Problem List Problem List: Activity Tolerance, Functional Strength, Safety, Balance, Gait, Transfer, Bed Mobility, ROM Treatment/Plan Treatment Plan: Continue Plan of Care Treatment Plan: Bed Mobility, Education, Functional Activity Héctor, Functional Strength, Group Therapy, Gait, Safety, Therapeutic Exercise, Transfers Treatment Duration: Aug 31, 2020 Frequency: Estimated Hrs Per Day: 1 hour per day Patient and/or Family Agrees t: Yes Safety Risks/Education Patient Education: Transfer Techniques, Correct Positioning, W/C Management, Safety Issues Teaching Recipient: Patient Teaching Methods: Demonstration, Discussion Response to Teaching: Reinforcement Needed Time/GCodes Time In: 0800 Time Out: 0900 Total Billed Treatment Time: 60 Total Billed Treatment 1 visit EX 15' FA 45' LYNDSAY PERRY PT Aug 17, 2020 08:55
--- NOTE | 2020-08-17 09:50 | Occupational Ther Daily Note ---
OT Current Status-Daily Note Subjective Pt. reports pain, 4/10 in right calf with movement. Pt. requests pain medication at end of treatment. Nursing notified. Appearance Pt. up in wheelchair with PT when OT entered room. Agrees to work with OT as well. Mental Status/Objective Patient Orientation: Person, Place Attachments: IV ADL-Treatment Therapy Code Descriptions/Definitions Functional [place] Measure: 0=Not Assessed/NA 4=Minimal Assistance 1=Total Assistance 5=Supervision or Setup 2=Maximal Assistance 6=Modified [place] 3=Moderate Assistance 7=Complete IndependenceSCALE: Activities may be completed with or without assistive devices. 6-Etmaretdgn-tzyjqtc completes the activity by him/herself with no assistance from a helper. 5-Set-up or Clean-up Assistance-helper sets up or cleans up; patient completes activity. [place] assists only prior to or following the activity. 4-Supervision or Touching Assistance-helper provides verbal cues and/or touching/steadying and/or contact guard assistance as patient completes activity. Assistance may be provided throughout the activity or intermittently. 3-Partial/Moderate Assistance-helper does LESS THAN HALF the effort. [place] lifts, holds or supports trunk or limbs, but provides less than half the effort. 2-Substantial/Maximal Assistance-helper does MORE THAN HALF the effort. [place] lifts or holds trunk or limbs and provides more than half the effort. 7-Zlstrurki-kyptaf does ALL the effort. Patient does none of the effort to complete the activity. Or, the assistance of 2 or more helpers is required for the patient to complete the activity. If activity was not attempted, code reason: 7-Patient Refused. 9-Not Applicable-not attempted and the patient did not perform the activity before the current illness, exacerbation or injury. 10-Not Attempted due to Environmental Limitations-(lack of equipment, weather restraints, etc.). 88-Not Attempted due to Medical Conditions or Safety Concerns. Eating (QC): 3 (Min assist for stabilization of bowl. Set up for whole meal tray. OT has to place spoon with built up handle in right hand each time, as well as Abraham cup and banana.) Oral Hygiene (QC): 7 Shower/Bathe Self (QC): 2 (OT washes pt. hair with shampoo cap while pt. up in wheelchair. When pt. is back in bed, OT assists at bed level with sponge bath. Pt. is able to wash face and upper chest when washcloth is placed in right hand. Otherwise, OT washed all parts. Pt. declines for his feet to be washed this date.) On/Off Footwear: 1 Other Treatment Pt. up in chair with PT. OT/PT co-treated due to fatigue level and poor endurance. OT focused on UE movement and positioning while PT focuses on LE and transfer. Attempted to stand pt. at standing frame. Pt. is able to bring bilateral UE up onto frame while PT is lifting sling in frame. Pt. is able to c ome to upright stance for approximately 4-5 minutes. Pt. indicates that his right calf is very tight. Pt. encouraged that this will help him stretch. Pt. requests to sit back down. OT initiates UE AROM exercises for shoulder and elbow flexion, while taking turns with PT facilitating LE exercises. Pt. handed brush and is able to brush right side of head. He is able to sit up in chair long enough to eat breakfast, with cues and assist to bring utensil to mouth using right hand. Pt. transferred back to bed using sit-stand lift and positioned in bed with max x 2. Completed sponge bath at bed level. Pt. positioned to comfort level on side. All needs met. Education OT Patient Education: Correct positioning, Exercise program, Modified ADL techniques, Progress toward Goal/Update tx plan, Purpose of tx/functional activities, Reviewed precautions, Rehab process, Transfer techniques, Use of adapted equipment Teaching Recipient: Patient Teaching Methods: Demonstration, Discussion Response to Teaching: Verbalize Understanding, Return Demonstration OT Short Term Goals Short Term Goals Eatin Oral hygiene: 3 Toileting hygiene: 2 Shower/bathe self: 2 Upper body dressin Lower body dressin Putting on/taking off footwear: 2 OT Halfway Goals Halfway Goals Time Frame: Aug 31, 2020 Eating (QC): 6 Oral Hygiene (QC): 6 Toileting Hygiene (QC): 4 Shower/Bathe Self (QC): 4 Upper Body Dressing (QC): 6 Lower Body Dressing (QC): 4 On/Off Footwear (QC): 4 Additional Goals: 1-Demonstrate ADL Tasks, 2-Verbalize Understanding, 3-Imp roveStrength/Héctor 1=Demonstrate adherence to instructed precautions during ADL tasks. 2=Patient will verbalize/demonstrate understanding of assistive devices/modifications for ADL. 3=Patient will improve strength/tolerance for activity to enable patient to perform ADL's. OT Education/Plan Problem List/Assessment Assessment: Decreased Activ Tolerance, Decreased UE Strength, Dependent Transfers, Impaired Bed Mobility, Impaired Coordination, Impaired Funct Balance, Impaired I ADL's, Impaired Self-Care Skills, Restricted Funct UE ROM Discharge Recommendations Plan/Recommendations: Continue POC Therapy Discharge Recommendati: Post Acute OT Treatment Plan/Plan of Care Treatment,Training & Education: Yes Patient would benefit from OT for education, treatment and training to promote independence in ADL's, mobility, safety and/or upper extremity function for ADL's. Plan of Care: ADL Retraining, Caregiver Training, Concurrent Therapy, Functional Mobility, Group Exercise/Act as Ind, Orthotic Fitting/Training, UE Funct Exercise/Act, UE Neuromus Re-Ed/Coord, W/C Management Training Treatment Duration: Aug 31, 2020 Frequency: Modified Program (IRF) Estimated Hrs Per Day: 1 hour per day (Covid Waiver) Agreement: Yes Rehab Potential: Fair Time/GCodes Start Time: 08:15 Stop Time: 09:30 Total Time Billed (hr/min): 75 Billed Treatment Time [id number] 1, FA x 45minutes- Co-treatment with PT. Please see above note for designated roles. [id number]- ADL x 30minutes SWATI DOS SANTOS OT Aug 17, 2020 09:50
[2020-08-17] MEDS: cloNIDine 0.1 MG (CATAPRES) TAB PO SCH ×2 (10:01→21:26)
[2020-08-17] MEDS: SENNA W/DOCUSATE (SENOKOT S) TABLET PO SCH ×2 (10:03→21:26)
[2020-08-17] MEDS: DULoxetine 30 MG (CYMBALTA) CAP PO SCH (10:03)
[2020-08-17] MEDS: VITAMIN D3 125 MCG (5,000 UNITS) CAPSULE PO SCH (10:03)
[2020-08-17] MEDS: SENNOSIDES 8.6 MG (SENOKOT) TAB PO SCH ×2 (10:03→21:35)
[2020-08-17] MEDS: ROSUVASTATIN 20 MG (CRESTOR) TABLET PO SCH (10:03)
[2020-08-17] MEDS: LACTOBACILLUS ACIDOPHILUS (PROBIOTIC) CAPSULE PO SCH ×2 (10:04→21:26)
[2020-08-17] MEDS: GABAPENTIN 300 MG (NEURONTIN) CAP PO SCH ×3 (10:04→21:27)
[2020-08-17] MEDS: DOCUSATE SODIUM 100 MG (COLACE) CAP PO SCH ×2 (10:04→21:27)
[2020-08-17] MEDS: LORATADINE (CLARITIN) 10 MG TAB PO SCH (10:04)
[2020-08-17] MEDS: ASCORBIC ACID (VIT C) 500 MG TABLET PO SCH (10:04)
[2020-08-17] MEDS: meTOprolol TARTRATE 50 MG (LOPRESSOR) TAB PO SCH ×2 (10:04→21:26)
[2020-08-17] MEDS: GEMFIBROZIL 600 MG (LOPID) TAB PO SCH ×2 (10:04→21:26)
[2020-08-17] MEDS: MONTELUKAST 10 MG (SINGULAIR) TAB PO SCH (10:04)
[2020-08-17] MEDS: PIOGLITAZONE 30MG (ACTOS) TAB PO SCH (10:04)
[2020-08-17] MEDS: COLLAGENASE 30 GM (SANTYL) TUBE TP SCH ×2 (10:05→21:27)
[2020-08-17] MEDS: REXULTI 0.5 MG PO SCH (10:05)
[2020-08-17] MEDS: polyethylene glycoL POWDER 17 GM (MIRALAX) PACK PO SCH ×2 (10:06→19:43)
[2020-08-17] MEDS: DAKIN'S 1/4 STRENGTH (0.125%) 473 ML BTL TOP SCH ×2 (10:06→19:44)
--- NOTE | 2020-08-17 12:30 | Speech Therapy Daily Note ---
Speech Daily Progress Note Subjective Date Seen by Provider: Aug 17, 2020 Time Seen by Provider: 00:30 Patient resting in his bed following his OT and PT session this morning. Objective Patient completed general information questions at the intermediate level at 85% with minimal cues. Assessment Assessment Current Status: Good Progress Treatment Plan Continue Plan of Care Speech Short Term Goals Short Term Goals Short Term Goals 1) Patient will complete memory tasks related to his daily needs at 90% or greater. 2) Patient will complete safety awareness tasks related to his daily needs at 90% or greater. 3) Patient will complete problem solving tasks related to his daily needs at 90% or greater. Speech Cushion Padder Goals Cushion Padder Goals Patient will improve cognitive-communication necessary for safety and daily living tasks with minimal assist. Speech-Plan Patient/Family Goals Patient/Family Goals: Patient will remain on the ARU until the time he is more independent prior to returning to live with his parents. Treatment Plan Speech Therapy Treatment Plan: Continue Plan of Care Treatment Duration: Aug 30, 2020 Frequency: 4 times per week (Patient will receive skilled ST 4-5x per week) Estimated Hrs Per Day: .5 hour per day Rehab Potential: Fair Barriers to Learning: Patient's lengthy critical illness/recovery, debility Pt/Family Agrees to Plan: Yes Safety Risks/Education Teaching Recipient: Patient Teaching Methods: Demonstration, Discussion Response to Teaching: Verbalize Understanding, Return Demonstration Education Topics Provided: Safety within his room, communication of wants/needs Time Speech Therapy Time In: 10:30 Speech Therapy Time Out: 11:00 Total Billed Time: 30 Billed Treatment Time 1, BRADEN Wolfe Aug 17, 2020 12:30
--- NOTE | 2020-08-17 14:07 | Physical Therapy Daily Note ---
PT Daily Note-Current Subjective Patient laying on L side pre tx, and agreed to therapy. Patient complained of pain 4/10 in R lower foot that he reported as burning and shooting pins and needles with any kind of movement or pressure. 4/10 pain complaints extended into the R leg when touched or rubbed. Appearance Patient lying on L side post tx, with call button in reach and table tray positioned nearby post tx. Ice pack placed on R foot to help with bindu ensitization and pain relief for 20 minutes on bottom and 20 minutes on top. At end of cold therapy, patient noted persistent 4/10 pain, with no notable changes. Transfers SCALE: Activities may be completed with or without assistive devices. 8-Aumskbxrrv-qemwwlb completes the activity by him/herself with no assistance from a helper. 5-Set-up or Clean-up Assistance-helper sets up or cleans up; patient completes activity. [place] assists only prior to or following the activity. 4-Supervision or Touching Assistance-helper provides verbal cues and/or touching/steadying and/or contact guard assistance as patient completes activity. Assistance may be provided throughout the activity or intermittently. 3-Partial/Moderate Assistance-helper does LESS THAN HALF the effort. [place] lifts, holds or supports trunk or limbs, but provides less than half the effort. 2-Substantial/Maximal Assistance-helper does MORE THAN HALF the effort. [place] lifts or holds trunk or limbs and provides more than half the effort. 2-[place]-fcripl does ALL the effort. Patient does none of the effort to complete the activity. Or, the assistance of 2 or more helpers is required for the patient to complete the activity. If activity was not attempted, code reason: 7-Patient Refused. 9-Not Applicable-not attempted and the patient did not perform the activity before the current illness, exacerbation or injury. 10-Not Attempted due to Environmental Limitations-(lack of equipment, weather restraints, etc.). 88-Not Attempted due to Medical Conditions or Safety Concerns. Roll Left & Right (QC): 5 Exercises Sidelying on L side, placed ice pack on inside and bottom of R foot to help with pain relief and desensitization. Ice pack moved to top of foot after 20 minutes. Treatments Foot desensitization, ROM Assessment Current Status: Poor Progress, Fair Progress Patient continues to complain of intense foot pain/sensation that interferes with functional mobility and therapeutic exercise. PT Short Term Goals Short Term Goals Time Frame: Aug 17, 2020 Roll Left & Right: 4 Sit to lyin Lying to sitting on side of be: 2 Sit to stand: 1 Chair/ybb-qg-jzubi transfer: 1 PT Penitentiary Goals Lance Crewmember/Mlrs Sergeant Goals PT Lance Crewmember/Mlrs Sergeant Goals Time Frame: Aug 31, 2020 Roll Left & Right (QC): 6 Sit to Lying (QC): 3 Lying-Sitting on Side/Bed(QC): 3 Sit to Stand (QC): 2 Chair/Uhg-dz-Gyedb Xfer(QC): 2 Toilet Transfer (QC): 2 Car Transfer (QC): 1 Does the Patient Walk: No and Walking Goal NOT indicated Walk 10 feet (QC): 88 Walk 50ft with 2 Turns (QC): 88 Walk 150 ft (QC): 88 Walking 10ft on Uneven Surface: 88 1 Step (curb) (QC): 88 4 Steps (QC): 88 12 Steps (QC): 88 Picking up an Object (QC): 88 Wheel 50 feet with 2 turns (QC: 3 Wheel 150 feet: 3 PT Plan Problem List Problem List: Activity Tolerance, Functional Strength, Safety, Balance, Gait, Transfer, Bed Mobility, ROM Treatment/Plan Treatment Plan: Continue Plan of Care Treatment Plan: Bed Mobility, Education, Functional Activity Héctor, Functional Strength, Group Therapy, Gait, Safety, Therapeutic Exercise, Transfers Treatment Duration: Aug 31, 2020 Frequency: Estimated Hrs Per Day: 1 hour per day Patient and/or Family Agrees t: Yes Safety Risks/Education Patient Education: Transfer Techniques, Correct Positioning, Safety Issues Teaching Recipient: Patient Teaching Methods: Demonstration, Discussion Response to Teaching: Reinforcement Needed Time/GCodes Time In: 1300 Time Out: 1324 Total Billed Treatment Time: 24 Total Billed Treatment 1 visit: Ther Act: 24 JAS TEMPLE PT Aug 17, 2020 14:07
[2020-08-17] MEDS ORDERED: NS IR PRN (14:30)
[2020-08-17] MEDS ORDERED: NS IV 1000 ML 1,000 ML ONE (14:40)
[2020-08-17 16:40] VITALS: BP 105/68
[2020-08-17] MEDS: MELATONIN 10 MG TABLET PO SCH (21:26)
[2020-08-17] MEDS: QUEtiapine 25 MG (SEROquel) TAB IMMEDIATE RELEASE PO SCH (21:26)
[2020-08-17] MEDS: TAMSULOSIN 0.4 MG (FLOMAX) CAP PO SCH (21:27)
[2020-08-18] MEDS: LACTATED RINGERS 1,000 ML IV SCH ×3 (00:28→23:37)
[2020-08-18 05:32] VITALS: BP 114/60
--- NOTE | 2020-08-18 05:34 | PM&R Progress Note ---
Subjective HPI/CC On Admission Date Seen by Provider: Aug 18, 2020 Time Seen by Provider: 09:00 Subjective/Events-last exam 08/18/20: Patient doing well Wound vac maintained No pain reported Checked meds and labs Pain controlled IVF maintained 08/17/20: Patient doing well Slow recovery Dressing changes reveal good wound appearance s/p debridement Hgb 9.1 Cymbalta was changed to what his home dose is 08/16/20: Patient having anxiety about upcoming debridement Pain is an issue so increasing IV pain meds temporarily NPO until OR Bday is BM+ VCV may be the DC plan since his parents cannot take care of him 08/15/20: Patient doing well Up in wheelchair doing therapy outside room Dr Santillan will debride the wound tomorrow Home meds from mother will be sent to [facility] and restarted if indicated BP ok Tachycardia remains but stable 08/14/20:' Awaiting plan from Dr Santillan regarding the wound on coccyx Odor is present No pain reported by patient except neuropathy BM+ Retime Lovenox 08/13/20: Patient doing well Apathy Patient states he is homesick BM large today IVF maintained 08/12/20: Patient doing better Neuropathy of feet an issue so we discussed it Fentanyl and Oxycodone and Gabapentin BM+ 08/1008/11/20: Patient doing well Decubitus ulcer managed by Dr Santillan Continent Ivan lift Checked meds and labs Review of Systems General: Fatigue, Malaise Neurological: Weakness, Incoordination Objective Exam Vital Signs Vital Signs Date Time Temp Pulse Resp B/P (MAP) Pulse Ox O2 Delivery O2 Flow Rate FiO2 08/19/20 09:07 Room Air 08/19/20 06:15 36.4 98 18 108/53 (71) 96 Capillary Refill : General Appearance: No Apparent Distress, WD/WN, Chronically ill, Obese HEENT: PERRL/EOMI, Normal ENT Inspection, Pharynx Normal Neck: Full Range of Motion, Normal Inspection, Non Tender, Supple Respiratory: Chest Non Tender, Lungs Clear, Normal Breath Sounds, No Accessory Muscle Use, No Respiratory Distress Cardiovascular: Regular Rate, Rhythm, No Edema, No Murmur, Normal Peripheral Pulses Gastrointestinal: Normal Bowel Sounds, No Organomegaly, No Pulsatile Mass, Non Tender, Soft Back: Normal Inspection, No CVA Tenderness, No Vertebral Tenderness Extremity: No Calf Tenderness, Other (Ulcer on knee dressed and wrapped. No leaking through. ) Neurologic/Psychiatric: Alert, Oriented x3, endoscope technician II-XII Norm as Tested, Depressed Affect, Motor Weakness (generalized) Skin: Normal Color, Warm/Dry, Other (Decubitus ulcer on sacreal area still odorous, Dressing in place with no leaking through. ) Lymphatic: No Adenopathy Results/Procedures Lab Patient resulted labs reviewed. FIM Transfers Therapy Code Descriptions/Definitions Functional [place] Measure: 0=Not Assessed/NA 4=Minimal Assistance 1=Total Assistance 5=Supervision or Setup 2=Maximal Assistance 6=Modified [place] 3=Moderate Assistance 7=Complete IndependenceSCALE: Activities may be completed with or without assistive devices. 5-Fexgksbnmm-jkqpqyt completes the activity by him/herself with no assistance from a helper. 5-Set-up or Clean-up Assistance-helper sets up or cleans up; patient completes activity. [place] assists only prior to or following the activity. 4-Supervision or Touching Assistance-helper provides verbal cues and/or touching/steadying and/or contact guard assistance as patient completes activity. Assistance may be provided throughout the activity or intermittently. 3-Partial/Moderate Assistance-helper does LESS THAN HALF the effort. [place] lifts, holds or supports trunk or limbs, but provides less than half the effort. 2-Substantial/Maximal Assistance-helper does MORE THAN HALF the effort. [place] lifts or holds trunk or limbs and provides more than half the effort. 9-Xrxyurgir-gtyhoc does ALL the effort. Patient does none of the effort to complete the activity. Or, the assistance of 2 or more helpers is required for the patient to complete the activity. If activity was not attempted, code reason: 7-Patient Refused. 9-Not Applicable-not attempted and the patient did not perform the activity before the current illness, exacerbation or injury. 10-Not Attempted due to Environmental Limitations-(lack of equipment, weather restraints, etc.). 88-Not Attempted due to Medical Conditions or Safety Concerns. Roll Left to Right (QC): 5 Sit to Lying (QC): 3 Sit to Stand (QC): 1 Chair/Fqj-sq-[place]ou[place] Xfer(QC): 1 Car Transfer (QC): 1 Gait Training Does the Patient Walk?: No and Walking Goal NOT indicated Walk 10 feet (QC): 88 Walk 50 ft with 2 Turns(QC): 88 Walk 150 ft (QC): 88 Walking 10ft/uneven surface-QC: 88 Wheelchair Training Does the Pt Use a Wheelchair?: Yes Wheel 50 ft with 2 turns (QC): 2 Wheel 150 ft (QC): 2 Type of Wheelchair: Manual Stair Training 1 Step (curb) (QC): 88 4 Steps (QC): 88 12 Steps (QC): 88 Balance Picking up an Object (QC): 88 ADL-Treatment Eating (QC): 3 (Min assist for stabilization of bowl. Set up for whole meal tray. OT has to place spoon with built up handle in right hand each time, as well as Abraham cup and banana.) Oral Hygiene (QC): 7 Shower/Bathe Self (QC): 2 (OT washes pt. hair with shampoo cap while pt. up in wheelchair. When pt. is back in bed, OT assists at bed level with sponge bath. Pt. is able to wash face and upper chest when washcloth is placed in right hand. Otherwise, OT washed all parts. Pt. declines for his feet to be washed this date.) Upper Body Dressing (QC): 7 Lower Body Dressing (QC): 1 (based on current abilities, will require Ax2 for donning/ doffing undergarments/ pants.) On/Off Footwear (QC): 1 Toileting Hygiene (QC): 7 Assessment/Plan Assessment and Plan Assess & Plan/Chief Complaint Assessment:: Myopathy COVID-19 PNA 06/03/20 Hypoxia Morbid obesity HTN HLP Developmental delay/autism Decubitus ulcers coccyx and left knee s/p debridement 08/16/20 Dr Santillan Tachycardia consulted Dr Busch dx hypovolemia so started IVF Plan: Wound care IRF protocol Home meds Pain meds 08/11/20: Monitor closely Decubitus ulcer management 08/12/20: Monitor closely IVF NS Monitor tachycardia Supportive care 08/13/20: IVF Monitor closely 08/14/20: Await wound care plan Monitor closely Continue IVF 08/15/20: Debridement tomorrow Check labs in morning Home meds 08/16/20: Monitor pain Debridement today IVF 08/17/20: Monitor pain Dressing changes Start weaning down off pain meds 08/18/20: Wound vac Maintained pain meds IVF Dr Santillan (1) Myopathy (2) Pneumonia due to 2019 novel coronavirus Status: Acute (3) Morbid obesity Status: Chronic (4) Hypoxia Status: Acute (5) T2DM (type 2 diabetes mellitus) Status: Acute HEMANTH DODD DO Aug 18, 2020 05:34
[2020-08-18] MEDS: inSUlin ASPART (NovoLOG) 1 UNIT/0.01 ML (CHARGE PER UNIT) SC SCH ×4 (06:24→21:15)
[2020-08-18] MEDS: ENOXAPARIN 40 MG/0.4 ML (LOVENOX) SYR SC SCH ×2 (06:34→17:32)
[2020-08-18] MEDS: MULTIVIT W/MINERALS TAB (THERAGRAN M) PO SCH (06:34)
--- NOTE | 2020-08-18 08:13 | Progress Note - Surgery ---
KADEN SHARMA MED STUDENT 08/18/20 0813: Subjective Date Seen by a Provider: Aug 18, 2020 Time Seen by a Provider: 07:45 Subjective/Events-last exam Pt is awake this morning and lying on his side in bed. States that his sacral area is doing fine this morning. States he does not really have any pain. Has been eating and drinking without difficulty. States he has not had a bowel movement since the debreidment. States that he is still doing PT, and is otherwise doing well. He has no questions or concerns today. Has a wound vac on sacral area today. Review of Systems General: No Chills, No Fatigue HEENT: No Head Aches, No Visual Changes Pulmonary: No Dyspnea, No Cough Cardiovascular: No: Chest Pain, Palpitations Gastrointestinal: No: Nausea, Vomiting, Abdominal Pain, Constipation, Melena, Hematochezia Genitourinary: No Dysuria, No Hematuria Musculoskeletal: foot pain; No: leg pain Objective Exam Vital Signs Date Time Temp Pulse Resp B/P (MAP) Pulse Ox O2 Delivery O2 Flow Rate FiO2 08/18/20 05:32 36.2 97 16 114/60 (78) 91 Room Air 08/17/20 20:00 Room Air 08/17/20 18:15 94 Room Air 08/17/20 16:40 37.0 117 16 105/68 (80) 97 08/17/20 09:00 Room Air 08/17/20 08:30 121 120/64 (82) I & O 08/18/20 07:00 Intake Total 2660 ml Output Total 2625 ml Balance 35 ml Capillary Refill : General Appearance: No Apparent Distress, WD/WN, Chronically ill, Obese Neck: Full Range of Motion, Normal Inspection, Non Tender, Supple Respiratory: Chest Non Tender, Lungs Clear, Normal Breath Sounds, No Accessory Muscle Use, No Respiratory Distress Cardiovascular: Regular Rate, Rhythm, No Edema, No Murmur, Normal Peripheral Pulses Gastrointestinal: non tender, soft, no organomegaly Extremity: No Calf Tenderness, Other (Ulcer on knee dressed and wrapped. No leaking through. ) Neurologic/Psychiatric: Alert, Oriented x3, Depressed Affect, Motor Weakness (generalized) Skin: Normal Color, Warm/Dry, Other (Decubitus ulcer on sacreal area no longer odorous, Vaccum dressing in place. Minimal erythema and no leaking. ) Lymphatic: No Adenopathy Results Lab Laboratory Tests 08/17/20 10:50: Glucometer 122H 08/17/20 16:33: Glucometer 114H 08/17/20 20:07: Glucometer 138H Assessment/Plan Assessment/Plan Assessment/Plan 1. S/P Sacral Decubitus ulcer debreidment -Wound vac in place, continue to monitor for signs of tissue . -Change wound vac as necessary -No complaints of pain or fever at this time. 2. Decubitis Ulcer - Sacral, Knee, face -Continue packing and dressings for sacral ulcer. -Continue Sanofyl on knee, betadine on facial scab, Continue dressing changes. 3. DM -Continue Home meds and glucose checks AARTI MARCUS MD 08/18/20 0920: Supervisory-Addendum Brief Verification & Attestation Participated in pt care: history, MDM, physical Personally performed: exam Care discussed with: Medical Student Procedures: n/a doing ok. vac in place. no fever/chills. pain contolled. KADEN SHARMA MED STUDENT Aug 18, 2020 08:13 AARTI MARCUS MD Aug 18, 2020 09:20
[2020-08-18] MEDS: DAKIN'S 1/4 STRENGTH (0.125%) 473 ML BTL TOP SCH (09:00)
--- NOTE | 2020-08-18 09:20 | Physical Therapy Daily Note ---
PT Daily Note-Current Subjective Patient in bed pre tx, agrees to PT, has 4/10 pain in his backside, would like pain meds, nurse notified and she gave pain meds. Patient now has a wound vac on sacral area. Will be co-treating with OT due to poor patient mobility, strength, endurance, balance, pain with activity, coordinate UE and LE with activity, safety and reduce risk of falls. Appearance Patient in WC post tx, will continue for a while with OT Mental Status Patient Orientation: Person, Place, Situation Attachments: IV wound vac Transfers SCALE: Activities may be completed with or without assistive devices. 4-Jjijyjozcn-twwkgrp completes the activity by him/herself with no assistance from a helper. 5-Set-up or Clean-up Assistance-helper sets up or cleans up; patient completes activity. [place] assists only prior to or following the activity. 4-Supervision or Touching Assistance-helper provides verbal cues and/or touching/steadying and/or contact guard assistance as patient completes activity. Assistance may be provided throughout the activity or intermittently. 3-Partial/Moderate Assistance-helper does LESS THAN HALF the effort. [place] lifts, holds or supports trunk or limbs, but provides less than half the effort. 2-Substantial/Maximal Assistance-helper does MORE THAN HALF the effort. [place] lifts or holds trunk or limbs and provides more than half the effort. 7-Clzmjbosr-devrwd does ALL the effort. Patient does none of the effort to complete the activity. Or, the assistance of 2 or more helpers is required for the patient to complete the activity. If activity was not attempted, code reason: 7-Patient Refused. 9-Not Applicable-not attempted and the patient did not perform the activity before the current illness, exacerbation or injury. 10-Not Attempted due to Environmental Limitations-(lack of equipment, weather restraints, etc.). 88-Not Attempted due to Medical Conditions or Safety Concerns. Roll Left & Right (QC): 4 Lying to Sitting/Side of Bed(Q: 3 Sit to Stand (QC): 1 Chair/Hsb-ir-Tcuth Xfer(QC): 1 Patient rolls on his side with SBA, states he needs to use the urinal, urinal is place and he urinates. Mod assist for supine to sit and then sit to stand machine is used for transfer to , he has pain in wound vac area when sitting in WC, a reclining WC is then obtained and he is transferred to that using the sit to stand machine. He can sit upright in the reclining WC and recline the ba ck of the WC a little to take pressure off of his lower back were the wound vac is. Wheelchair Training Does the Pt Use a Wheelchair?: Yes Type of Wheelchair: Manual 20'x2, min assist, patient used both feet to pull WC forward Exercises Seated Therapy Exercises: Long arc quads, Hip flexion, Hamstring Curls Seated Reps: 10 seated glut sets x10 Treatments PT performed bed mobility and transfers, WC mobility, LE exercise, OT performed UE exercise, UE safety and positioning during activity Assessment Current Status: Poor Progress Patient has very sensitive feet and has pain with most activity, encourage activity with both feet to promote desensitization PT Short Term Goals Short Term Goals Time Frame: Aug 17, 2020 Roll Left & Right: 4 Sit to lyin Lying to sitting on side of be: 2 Sit to stand: 1 Chair/pjj-ka-dbete transfer: 1 PT Primary Operator Goals Primary Operator Goals PT Primary Operator Goals Time Frame: Aug 31, 2020 Roll Left & Right (QC): 6 Sit to Lying (QC): 3 Lying-Sitting on Side/Bed(QC): 3 Sit to Stand (QC): 2 Chair/Coz-kr-Hflvq Xfer(QC): 2 Toilet Transfer (QC): 2 Car Transfer (QC): 1 Does the Patient Walk: No and Walking Goal NOT indicated Walk 10 feet (QC): 88 Walk 50ft with 2 Turns (QC): 88 Walk 150 ft (QC): 88 Walking 10ft on Uneven Surface: 88 1 Step (curb) (QC): 88 4 Steps (QC): 88 12 Steps (QC): 88 Picking up an Object (QC): 88 Wheel 50 feet with 2 turns (QC: 3 Wheel 150 feet: 3 PT Plan Problem List Problem List: Activity Tolerance, Functional Strength, Safety, Balance, Gait, Transfer, Bed Mobility, ROM Treatment/Plan Treatment Plan: Continue Plan of Care Treatment Plan: Bed Mobility, Education, Functional Activity Héctor, Functional Strength, Group Therapy, Gait, Safety, Therapeutic Exercise, Transfers Treatment Duration: Aug 31, 2020 Frequency: Estimated Hrs Per Day: 1 hour per day Patient and/or Family Agrees t: Yes Safety Risks/Education Patient Education: Transfer Techniques, Correct Positioning, W/C Management, Safety Issues Teaching Recipient: Patient Teaching Methods: Demonstration, Discussion Response to Teaching: Reinforcement Needed Time/GCodes Time In: 0800 Time Out: 09 Total Billed Treatment Time: 60 Total Billed Treatment 1 visit EX 15' FA 45' LYNDSAY PERRY PT Aug 18, 2020 09:20
[2020-08-18] MEDS: DOCUSATE SODIUM 100 MG (COLACE) CAP PO SCH ×2 (09:59→22:02)
[2020-08-18] MEDS: ASCORBIC ACID (VIT C) 500 MG TABLET PO SCH (09:59)
[2020-08-18] MEDS: LACTOBACILLUS ACIDOPHILUS (PROBIOTIC) CAPSULE PO SCH ×2 (09:59→22:01)
[2020-08-18] MEDS: SENNOSIDES 8.6 MG (SENOKOT) TAB PO SCH ×2 (09:59→22:03)
[2020-08-18] MEDS: cloNIDine 0.1 MG (CATAPRES) TAB PO SCH ×2 (09:59→22:02)
[2020-08-18] MEDS: LORATADINE (CLARITIN) 10 MG TAB PO SCH (09:59)
[2020-08-18] MEDS: ROSUVASTATIN 20 MG (CRESTOR) TABLET PO SCH (09:59)
[2020-08-18] MEDS: MONTELUKAST 10 MG (SINGULAIR) TAB PO SCH (09:59)
[2020-08-18] MEDS: meTOprolol TARTRATE 50 MG (LOPRESSOR) TAB PO SCH ×2 (09:59→22:01)
[2020-08-18] MEDS: SENNA W/DOCUSATE (SENOKOT S) TABLET PO SCH ×2 (09:59→22:02)
[2020-08-18] MEDS: GABAPENTIN 300 MG (NEURONTIN) CAP PO SCH ×3 (09:59→22:02)
[2020-08-18] MEDS: VITAMIN D3 125 MCG (5,000 UNITS) CAPSULE PO SCH (09:59)
[2020-08-18] MEDS: PIOGLITAZONE 30MG (ACTOS) TAB PO SCH (10:00)
[2020-08-18] MEDS: COLLAGENASE 30 GM (SANTYL) TUBE TP SCH ×2 (10:00→22:01)
[2020-08-18] MEDS: GEMFIBROZIL 600 MG (LOPID) TAB PO SCH ×2 (10:00→22:02)
[2020-08-18] MEDS: REXULTI 0.5 MG PO SCH (10:01)
[2020-08-18] MEDS: DULoxetine 30 MG (CYMBALTA) CAP PO SCH (10:01)
[2020-08-18] MEDS: polyethylene glycoL POWDER 17 GM (MIRALAX) PACK PO SCH ×2 (10:37→22:00)
[2020-08-18] MEDS ORDERED: NS IV 1000 ML 1,000 ML IV PRN (10:45)
--- NOTE | 2020-08-18 13:10 | Occupational Ther Daily Note ---
OT Current Status-Daily Note Subjective Pt. reports 4/10 pain in bottom area and requests for pain medication. Nursing gives pain meds. Mental Status/Objective Patient Orientation: Person, Place ADL-Treatment Therapy Code Descriptions/Definitions Functional [place] Measure: 0=Not Assessed/NA 4=Minimal Assistance 1=Total Assistance 5=Supervision or Setup 2=Maximal Assistance 6=Modified [place] 3=Moderate Assistance 7=Complete IndependenceSCALE: Activities may be completed with or without assistive devices. 4-Dwheejwquo-yjrmbeh completes the activity by him/herself with no assistance from a helper. 5-Set-up or Clean-up Assistance-helper sets up or cleans up; patient completes activity. [place] assists only prior to or following the activity. 4-Supervision or Touching Assistance-helper provides verbal cues and/or touchin g/steadying and/or contact guard assistance as patient completes activity. Assistance may be provided throughout the activity or intermittently. 3-Partial/Moderate Assistance-helper does LESS THAN HALF the effort. [place] lifts, holds or supports trunk or limbs, but provides less than half the effort. 2-Substantial/Maximal Assistance-helper does MORE THAN HALF the effort. [place] lifts or holds trunk or limbs and provides more than half the effort. 7-Nldwjtjzw-mjtmhu does ALL the effort. Patient does none of the effort to complete the activity. Or, the assistance of 2 or more helpers is required for the patient to complete the activity. If activity was not attempted, code reason: 7-Patient Refused. 9-Not Applicable-not attempted and the patient did not perform the activity before the current illness, exacerbation or injury. 10-Not Attempted due to Environmental Limitations-(lack of equipment, weather restraints, etc.). 88-Not Attempted due to Medical Conditions or Safety Concerns. Other Treatment Pt. seen for partial co-treatment with PT due to poor endurance of activities. Pt. sitting on side of bed with PT when OT entered room. Pt. transferred to wheelchair using sit-stand lift. Pt. taken to rios and PT prompted LE propuls ion in wheelchair while OT facilitated use of right UE using splint. Pt. requires great encouragement. OT encouraged UE AROM while PT facilitated LE. Pt. requires rest breaks throughout, and will often hesitate before doing activity that is asked of him. Pt. taken to therapy gym and OT worked on leaning side to side in chair for pressure relief, and other techniques for pain control. Pt. states that he is hot and would like his fan. Pt. also states that he is tired, wants to return to bed. PT is encouraged to attempt more, to increase strength and overall independence. Pt. verbalizes understanding, but continues to require encouragement for each task. Pt. taken to room. Transfers back to bed with sit-stand lift. Max assist for bed mobility and positioning. All needs met. Education OT Patient Education: Correct positioning, Exercise program, Modified ADL techniques, Progress toward Goal/Update tx plan, Purpose of tx/functional activities, Reviewed precautions, Rehab process, Transfer techniques Teaching Recipient: Patient Teaching Methods: Demonstration, Discussion Response to Teaching: Verbalize Understanding, Return Demonstration OT Short Term Goals Short Term Goals Eatin Oral hygiene: 3 Toileting hygiene: 2 Shower/bathe self: 2 Upper body dressin Lower body dressin Putting on/taking off footwear: 2 OT Airframe And Powerplant Mechanic Goals Airframe And Powerplant Mechanic Goals Time Frame: Aug 31, 2020 Eating (QC): 6 Oral Hygiene (QC): 6 Toileting Hygiene (QC): 4 Shower/Bathe Self (QC): 4 Upper Body Dressing (QC): 6 Lower Body Dressing (QC): 4 On/Off Footwear (QC): 4 Additional Goals: 1-Demonstrate ADL Tasks, 2-Verbalize Understanding, 3- ImproveStrength/Héctor 1=Demonstrate adherence to instructed precautions during ADL tasks. 2=Patient will verbalize/demonstrate understanding of assistive devic es/modifications for ADL. 3=Patient will improve strength/tolerance for activity to enable patient to perform ADL's. OT Education/Plan Problem List/Assessment Assessment: Decreased Activ Tolerance, Decreased UE Strength, Dependent Transfers, Impaired Bed Mobility, Impaired Cognition, Impaired Coordination, Impaired Funct Balance, Impaired I ADL's, Impaired Self-Care Skills, Restricted Funct UE ROM Discharge Recommendations Plan/Recommendations: Continue POC Therapy Discharge Recommendati: 24 Hour Supervision, Post Acute OT Treatment Plan/Plan of Care Treatment,Training & Education: Yes Patient would benefit from OT for education, treatment and training to promote independence in ADL's, mobility, safety and/or upper extremity function for ADL's. Plan of Care: ADL Retraining, Caregiver Training, Concurrent Therapy, Functional Mobility, Group Exercise/Act as Ind, Orthotic Fitting/Training, UE Funct Exercise/Act, UE Neuromus Re-Ed/Coord, W/C Management Training Treatment Duration: Aug 31, 2020 Frequency: Modified Program (IRF) Estimated Hrs Per Day: 1 hour per day (Covid Waiver) Agreement: Yes Rehab Potential: Fair Time/GCodes Start Time: 08:10 Stop Time: 09:30 Total Time Billed (hr/min): 80 Billed Treatment Time 9390-9200 1, FA x [id number] with PT [id number] FA x 30minutes SWATI DOS SANTOS OT Aug 18, 2020 13:10
--- NOTE | 2020-08-18 13:54 | Physical Therapy Daily Note ---
PT Daily Note-Current Subjective Patient in L sidelying pre tx. Pt rates pain in sacral area as 1/10, and notes he has not had as much pain in feet compared to previous day. Patient gave consent to start PT. Appearance Patient left post tx in L sidelying, with call button within reach and tray table next to bed. Mental Status Patient Orientation: Person, Place, Time, Situation, Normal For Age Transfers SCALE: Activities may be completed with or without assistive devices. 3-Sirufshlhx-drhcwwd completes the activity by him/herself with no assistance from a helper. 5-Set-up or Clean-up Assistance-helper sets up or cleans up; patient completes activity. [place] assists only prior to or following the activity. 4-Supervision or Touching Assistance-helper provides verbal cues and/or touching/steadying and/or contact guard assistance as patient completes activity. Assistance may be provided throughout the activity or intermittently. 3-Partial/Moderate Assistance-helper does LESS THAN HALF the effort. [place] li fts, holds or supports trunk or limbs, but provides less than half the effort. 2-Substantial/Maximal Assistance-helper does MORE THAN HALF the effort. [place] lifts or holds trunk or limbs and provides more than half the effort. 2-Wnyehdnva-avmoym does ALL the effort. Patient does none of the effort to complete the activity. Or, the assistance of 2 or more helpers is required for the patient to complete the activity. If activity was not attempted, code reason: 7-Patient Refused. 9-Not Applicable-not attempted and the patient did not perform the activity before the current illness, exacerbation or injury. 10-Not Attempted due to Environmental Limitations-(lack of equipment, weather restraints, etc.). 88-Not Attempted due to Medical Conditions or Safety Concerns. Roll Left & Right (QC): 3 Patient able to roll toward R side 75% of full ROM secondary to wound vac placement and patient pain complaints. Exercises Supine Ex: Glut sets, Heel Slides, Knee to chest, Hip abd/add, Bicep Curls Supine Reps: 15 Treatments LE strengthening, LE and UE ROM Assessment Current Status: Poor Progress Patient continues to demonstrate decreased strength with LE body weight activities, but demonstrates improved pain tolerance with mobility of LE. PT Short Term Goals Short Term Goals Time Frame: Aug 17, 2020 Roll Left & Right: 4 Sit to lyin Lying to sitting on side of be: 2 Sit to stand: 1 Chair/byu-yv-dkzmw transfer: 1 PT Halfway Goals Halfway Goals PT Saw Straightener Goals Time Frame: Aug 31, 2020 Roll Left & Right (QC): 6 Sit to Lying (QC): 3 Lying-Sitting on Side/Bed(QC): 3 Sit to Stand (QC): 2 Chair/Wjf-ob-Upjym Xfer(QC): 2 Toilet Transfer (QC): 2 Car Transfer (QC): 1 Does the Patient Walk: No and Walking Goal NOT indicated Walk 10 feet (QC): 88 Walk 50ft with 2 Turns (QC): 88 Walk 150 ft (QC): 88 Walking 10ft on Uneven Surface: 88 1 Step (curb) (QC): 88 4 Steps (QC): 88 12 Steps (QC): 88 Picking up an Object (QC): 88 Wheel 50 feet with 2 turns (QC: 3 Wheel 150 feet: 3 PT Plan Problem List Problem List: Activity Tolerance, Functional Strength, Safety, Balance, Gait, Transfer, Bed Mobility, ROM Treatment/Plan Treatment Plan: Continue Plan of Care Treatment Plan: Bed Mobility, Education, Functional Activity Héctor, Functional Strength, Group Therapy, Gait, Safety, Therapeutic Exercise, Transfers Treatment Duration: Aug 31, 2020 Frequency: Estimated Hrs Per Day: 1 hour per day Patient and/or Family Agrees t: Yes Safety Risks/Education Patient Education: Transfer Techniques, Correct Positioning, Safety Issues Teaching Recipient: Patient Teaching Methods: Discussion Response to Teaching: Reinforcement Needed Instructed patient to continue to move bilateral legs as much as possible to prevent further muscle atrophy, decline in ROM, and decreased endurance. Time/GCodes Time In: 1300 Time Out: 1316 Total Billed Treatment Time: 16 Total Billed Treatment 1 visit: Ther ex: 16' LYNDSAY PERRY PT Aug 18, 2020 13:54
--- NOTE | 2020-08-18 14:04 | Speech Therapy Daily Note ---
Speech Daily Progress Note Subjective Date Seen by Provider: Aug 18, 2020 Time Seen by Provider: 00:30 Patient was resting in his bed following his wound care. Objective Patient completed trivia q/a with 90% given minimal cues. Assessment Assessment Current Status: Good Progress Treatment Plan Continue Plan of Care Speech Short Term Goals Short Term Goals Short Term Goals 1) Patient will complete memory tasks related to his daily needs at 90% or greater. 2) Patient will complete safety awareness tasks related to his daily needs at 90% or greater. 3) Patient will complete problem solving tasks related to his daily needs at 90% or greater. Speech Detention Goals Cert Occupational Therapy Asst Goals Patient will improve cognitive-communication necessary for safety and daily living tasks with minimal assist. Speech-Plan Patient/Family Goals Patient/Family Goals: Patient plans on returning to live with his parents upon discharge from rehab. Treatment Plan Speech Therapy Treatment Plan: Continue Plan of Care Treatment Duration: Aug 30, 2020 Frequency: 4 times per week (Patient will receive skilled ST 4-5x per week) Estimated Hrs Per Day: .5 hour per day Rehab Potential: Fair Barriers to Learning: Patient's lengthy critical illness/recovery, debility Pt/Family Agrees to Plan: Yes Safety Risks/Education Teaching Recipient: Patient Teaching Methods: Demonstration, Discussion Response to Teaching: Verbalize Understanding, Return Demonstration Education Topics Provided: Continued safety and communication Time Speech Therapy Time In: 11:00 Speech Therapy Time Out: 11:30 Total Billed Time: 30 Billed Treatment Time 1, BRADEN Wolfe Aug 18, 2020 14:04
[2020-08-18 17:47] VITALS: BP 115/79
[2020-08-18] MEDS: TAMSULOSIN 0.4 MG (FLOMAX) CAP PO SCH (22:01)
[2020-08-18] MEDS: QUEtiapine 25 MG (SEROquel) TAB IMMEDIATE RELEASE PO SCH (22:02)
[2020-08-18] MEDS: MELATONIN 10 MG TABLET PO SCH (22:02)
[2020-08-19] MEDS: inSUlin ASPART (NovoLOG) 1 UNIT/0.01 ML (CHARGE PER UNIT) SC SCH ×4 (05:43→21:20)
[2020-08-19 06:15] VITALS: BP 108/53
[2020-08-19] MEDS: MULTIVIT W/MINERALS TAB (THERAGRAN M) PO SCH (06:44)
[2020-08-19] MEDS: ENOXAPARIN 40 MG/0.4 ML (LOVENOX) SYR SC SCH ×2 (06:44→17:28)
[2020-08-19] MEDS: polyethylene glycoL POWDER 17 GM (MIRALAX) PACK PO SCH ×2 (07:34→21:20)
[2020-08-19] MEDS: cloNIDine 0.1 MG (CATAPRES) TAB PO SCH ×2 (09:16→21:23)
[2020-08-19] MEDS: GABAPENTIN 300 MG (NEURONTIN) CAP PO SCH ×3 (09:16→21:24)
[2020-08-19] MEDS: SENNA W/DOCUSATE (SENOKOT S) TABLET PO SCH ×2 (09:16→21:23)
[2020-08-19] MEDS: ROSUVASTATIN 20 MG (CRESTOR) TABLET PO SCH (09:16)
[2020-08-19] MEDS: PIOGLITAZONE 30MG (ACTOS) TAB PO SCH (09:16)
[2020-08-19] MEDS: DULoxetine 30 MG (CYMBALTA) CAP PO SCH (09:16)
[2020-08-19] MEDS: LACTOBACILLUS ACIDOPHILUS (PROBIOTIC) CAPSULE PO SCH ×2 (09:17→21:23)
[2020-08-19] MEDS: LORATADINE (CLARITIN) 10 MG TAB PO SCH (09:17)
[2020-08-19] MEDS: ASCORBIC ACID (VIT C) 500 MG TABLET PO SCH (09:17)
[2020-08-19] MEDS: SENNOSIDES 8.6 MG (SENOKOT) TAB PO SCH ×2 (09:17→21:24)
[2020-08-19] MEDS: meTOprolol TARTRATE 50 MG (LOPRESSOR) TAB PO SCH ×2 (09:17→21:23)
[2020-08-19] MEDS: DOCUSATE SODIUM 100 MG (COLACE) CAP PO SCH ×2 (09:17→21:23)
[2020-08-19] MEDS: VITAMIN D3 125 MCG (5,000 UNITS) CAPSULE PO SCH (09:18)
[2020-08-19] MEDS: MONTELUKAST 10 MG (SINGULAIR) TAB PO SCH (09:18)
[2020-08-19] MEDS: GEMFIBROZIL 600 MG (LOPID) TAB PO SCH ×2 (09:20→21:23)
[2020-08-19] MEDS: COLLAGENASE 30 GM (SANTYL) TUBE TP SCH ×2 (09:21→21:32)
[2020-08-19] MEDS: REXULTI 0.5 MG PO SCH (09:21)
--- NOTE | 2020-08-19 10:06 | Physical Therapy Daily Note ---
PT Daily Note-Current Subjective Pt. in bed, agrees to bed mobility and up in w/c via lift. Pt. c/o multiple times of pain/ sensitivity in feet, legs , arms shoulders etc. Pt. states this is his history Pain Numeric Pain Scale: 6 Location: Medial Location Body Site: Sacrum Pain Description: Burning Mental Status Patient Orientation: Person, Place, Time, Normal For Age Attachments: Other-See Comments (wound vacc) Transfers SCALE: Activities may be completed with or without assistive devices. 4-Ntvkahqtgb-nficjui completes the activity by him/herself with no assistance from a helper. 5-Set-up or Clean-up Assistance-helper sets up or cleans up; patient completes activity. [place] assists only prior to or following the activity. 4-Supervision or Touching Assistance-helper provides verbal cues and/or touching/steadying and/or contact guard assistance as patient completes activity. Assistance may be provided throughout the activity or intermittently. 3-Partial/Moderate Assistance-helper does LESS THAN HALF the effort. [place] lifts, holds or supports trunk or limbs, but provides less than half the effort. 2-Substantial/Maximal Assistance-helper does MORE THAN HALF the effort. [place] lifts or holds trunk or limbs and provides more than half the effort. 8-Qbklzuwvc-jeezzf does ALL the effort. Patient does none of the effort to complete the activity. Or, the assistance of 2 or more helpers is required for the patient to complete the activity. If activity was not attempted, code reason: 7-Patient Refused. 9-Not Applicable-not attempted and the patient did not perform the activity before the current illness, exacerbation or injury. 10-Not Attempted due to Environmental Limitations-(lack of equipment, weather restraints, etc.). 88-Not Attempted due to Medical Conditions or Safety Concerns. Roll Left & Right (QC): 5 Lying to Sitting/Side of Bed(Q: 5 Sit to Stand (QC): 1 liko sit to stand lift used bed to w/c Wheelchair Training Does the Pt Use a Wheelchair?: Yes Type of Wheelchair: Manual pt. able to unbrake right side of w/c , needed mod assist left brake. pt. required mod assist to propel w/c 5 ft, and turn 180 deg. using LEs/feet only Exercises Seated Therapy Exercises: Ankle pumps, Long arc quads, Hip abd/add Seated Reps: 8 Treatments in stance in LIKO sit to stand pt. was able to demonstrate increased erect posture, extending knees hips slightly, this was taxing/ fatiguing to pt. but he also states it is a welcome relief to his bottom in NWB Assessment Current Status: Fair Progress continues dependent for mobility PT Short Term Goals Short Term Goals Time Frame: Aug 17, 2020 Roll Left & Right: 4 Sit to lyin Lying to sitting on side of be: 2 Sit to stand: 1 Chair/cup-tk-skqit transfer: 1 PT Mcc Goals Mrp Controller Goals PT Mrp Controller Goals Time Frame: Aug 31, 2020 Roll Left & Right (QC): 6 Sit to Lying (QC): 3 Lying-Sitting on Side/Bed(QC): 3 Sit to Stand (QC): 2 Chair/Wty-lt-Vwiaj Xfer(QC): 2 Toilet Transfer (QC): 2 Car Transfer (QC): 1 Does the Patient Walk: No and Walking Goal NOT indicated Walk 10 feet (QC): 88 Walk 50ft with 2 Turns (QC): 88 Walk 150 ft (QC): 88 Walking 10ft on Uneven Surface: 88 1 Step (curb) (QC): 88 4 Steps (QC): 88 12 Steps (QC): 88 Picking up an Object (QC): 88 Wheel 50 feet with 2 turns (QC: 3 Wheel 150 feet: 3 PT Plan Treatment/Plan Treatment Plan: Continue Plan of Care Treatment Plan: Bed Mobility, Education, Functional Activity Héctor, Functional Strength, Group Therapy, Gait, Safety, Therapeutic Exercise, Transfers Treatment Duration: Aug 31, 2020 Frequency: Estimated Hrs Per Day: 1 hour per day Patient and/or Family Agrees t: Yes Safety Risks/Education Patient Education: Transfer Techniques, Correct Positioning, W/C Management, D isease Process, Safety Issues Teaching Recipient: Patient Teaching Methods: Demonstration, Discussion Response to Teaching: Verbalize Understanding, Return Demonstration, Reinforcement Needed Time/GCodes Time In: 920 Time Out: 945 Total Billed Treatment Time: 25 Total Billed Treatment 1,FA25m SANDRA IVERSON PTA Aug 19, 2020 10:06
--- NOTE | 2020-08-19 10:52 | PM&R Progress Note ---
Subjective HPI/CC On Admission Date Seen by Provider: Aug 19, 2020 Time Seen by Provider: 11:00 Subjective/Events-last exam 08/19/20: Patient doing well DC Dilaudid DC IVF Wound vac changed Up in chair and used sit to stand for 30 minutes 08/18/20: Patient doing well Wound vac maintained No pain reported Checked meds and labs Pain controlled IVF maintained 08/17/20: Patient doing well Slow recovery Dressing changes reveal good wound appearance s/p debridement Hgb 9.1 Cymbalta was changed to what his home dose is 08/16/20: Patient having anxiety about upcoming debridement Pain is an issue so increasing IV pain meds temporarily NPO until OR Bday is BM+ VCV may be the DC plan since his parents cannot take care of him 08/15/20: Patient doing well Up in wheelchair doing therapy outside room Dr Santillan will debride the wound tomorrow Home meds from mother will be sent to tech and restarted if indicated BP ok Tachycardia remains but stable 08/14/20:' Awaiting plan from Dr Santillan regarding the wound on coccyx Odor is present No pain reported by patient except neuropathy BM+ Retime Lovenox 08/13/20: Patient doing well Apathy Patient states he is homesick BM large today IVF maintained 08/12/20: Patient doing better Neuropathy of feet an issue so we discussed it Fentanyl and Oxycodone and Gabapentin BM+ 08/1008/11/20: Patient doing well Decubitus ulcer managed by Dr Santillan Continent Ivan lift Checked meds and labs Review of Systems General: Fatigue, Malaise Neurological: Weakness Objective Exam Vital Signs Vital Signs Date Time Temp Pulse Resp B/P (MAP) Pulse Ox O2 Delivery O2 Flow Rate FiO2 08/20/20 08:51 94 18 117/66 (83) 98 Room Air 08/20/20 06:15 36.2 Capillary Refill : General Appearance: No Apparent Distress, WD/WN, Chronically ill, Obese HEENT: PERRL/EOMI, Normal ENT Inspection, Pharynx Normal Neck: Full Range of Motion, Normal Inspection, Non Tender, Supple Respiratory: Chest Non Tender, Lungs Clear, Normal Breath Sounds, No Accessory Muscle Use, No Respiratory Distress Cardiovascular: Regular Rate, Rhythm, No Edema, No Murmur, Normal Peripheral Pulses Gastrointestinal: Normal Bowel Sounds, No Organomegaly, No Pulsatile Mass, Non Tender, Soft Back: Normal Inspection, No CVA Tenderness, No Vertebral Tenderness Extremity: No Calf Tenderness, Other (Ulcer on knee dressed and wrapped. No leaking through. ) Neurologic/Psychiatric: Alert, Oriented x3, housekeeping manager II-XII Norm as Tested, Depressed Affect, Motor Weakness (generalized) Skin: Normal Color, Warm/Dry, Other (Decubitus ulcer on sacreal area still odorous, Dressing in place with no leaking through. ) Lymphatic: No Adenopathy Results/Procedures Lab Patient resulted labs reviewed. FIM Transfers Therapy Code Descriptions/Definitions Functional [place] Measure: 0=Not Assessed/NA 4=Minimal Assistance 1=Total Assistance 5=Supervision or Setup 2=Maximal Assistance 6=Modified [place] 3=Moderate Assistance 7=Complete IndependenceSCALE: Activities may be completed with or without assistive devices. 6-Mboybhxhjr-tpfgvgj completes the activity by him/herself with no assistance fr om a helper. 5-Set-up or Clean-up Assistance-helper sets up or cleans up; patient completes activity. [place] assists only prior to or following the activity. 4-Supervision or Touching Assistance-helper provides verbal cues and/or touching/steadying and/or contact guard assistance as patient completes activity. Assistance may be provided throughout the activity or intermittently. 3-Partial/Moderate Assistance-helper does LESS THAN HALF the effort. [place] lifts, holds or supports trunk or limbs, but provides less than half the effort. 2-Substantial/Maximal Assistance-helper does MORE THAN HALF the effort. [place] lifts or holds trunk or limbs and provides more than half the effort. 8-Aspndwcvi-pcchzi does ALL the effort. Patient does none of the effort to complete the activity. Or, the assistance of 2 or more helpers is required for the patient to complete the activity. If activity was not attempted, code reason: 7-Patient Refused. 9-Not Applicable-not attempted and the patient did not perform the activity before the current illness, exacerbation or injury. 10-Not Attempted due to Environmental Limitations-(lack of equipment, weather restraints, etc.). 88-Not Attempted due to Medical Conditions or Safety Concerns. Roll Left to Right (QC): 5 Sit to Lying (QC): 3 Sit to Stand (QC): 1 Chair/Ala-wr-Nqlbw Xfer(QC): 1 Car Transfer (QC): 1 Gait Training Does the Patient Walk?: No and Walking Goal NOT indicated Walk 10 feet (QC): 88 Walk 50 ft with 2 Turns(QC): 88 Walk 150 ft (QC): 88 Walking 10ft/uneven surface-QC: 88 Wheelchair Training Does the Pt Use a Wheelchair?: Yes Wheel 50 ft with 2 turns (QC): 2 Wheel 150 ft (QC): 2 Type of Wheelchair: Manual Stair Training 1 Step (curb) (QC): 88 4 Steps (QC): 88 12 Steps (QC): 88 Balance Picking up an Object (QC): 88 ADL-Treatment Eating (QC): 3 (Min assist for stabilization of bowl. Set up for whole meal tray. OT has to place spoon with built up handle in right hand each time, as well as Abraham cup and banana.) Oral Hygiene (QC): 7 Shower/Bathe Self (QC): 2 (OT washes pt. hair with shampoo cap while pt. up in wheelchair. When pt. is back in bed, OT assists at bed level with sponge bath. Pt. is able to wash face and upper chest when washcloth is placed in right hand. Otherwise, OT washed all parts. Pt. declines for his feet to be washed this date.) Upper Body Dressing (QC): 7 Lower Body Dressing (QC): 1 (based on current abilities, will require Ax2 for donning/ doffing undergarments/ pants.) On/Off Footwear (QC): 1 Toileting Hygiene (QC): 7 Assessment/Plan Assessment and Plan Assess & Plan/Chief Complaint Assessment:: Myopathy COVID-19 PNA 06/03/20 Hypoxia Morbid obesity HTN HLP Developmental delay/autism Decubitus ulcers coccyx and left knee s/p debridement 08/16/20 Dr Santillan Tachycardia consulted Dr Busch dx hypovolemia so started IVF Plan: Wound care IRF protocol Home meds Pain meds 08/11/20: Monitor closely Decubitus ulcer management 08/12/20: Monitor closely IVF NS Monitor tachycardia Supportive care 08/13/20: IVF Monitor closely 08/14/20: Await wound care plan Monitor closely Continue IVF 08/15/20: Debridement tomorrow Check labs in morning Home meds 08/16/20: Monitor pain Debridement today IVF 08/17/20: Monitor pain Dressing changes Start weaning down off pain meds 08/18/20: Wound vac Maintained pain meds IVF Dr Santillan 08/19/20: Monitor pain DC Oxana RINALDI IVF (1) Myopathy (2) Pneumonia due to 2019 novel coronavirus Status: Acute (3) Morbid obesity Status: Chronic (4) Hypoxia Status: Acute (5) T2DM (type 2 diabetes mellitus) Status: Acute HEMANTH DODD DO Aug 19, 2020 10:52
[2020-08-19] MEDS: fentaNYL PATCH 25 MCG (DURAGESIC) TD SCH (14:39)
[2020-08-19 17:01] VITALS: BP 107/55
[2020-08-19] MEDS: TAMSULOSIN 0.4 MG (FLOMAX) CAP PO SCH (21:23)
[2020-08-19] MEDS: QUEtiapine 25 MG (SEROquel) TAB IMMEDIATE RELEASE PO SCH (21:23)
[2020-08-19] MEDS: MELATONIN 10 MG TABLET PO SCH (21:24)
[2020-08-20] MEDS: MULTIVIT W/MINERALS TAB (THERAGRAN M) PO SCH (05:56)
[2020-08-20] MEDS: inSUlin ASPART (NovoLOG) 1 UNIT/0.01 ML (CHARGE PER UNIT) SC SCH ×4 (05:57→21:36)
[2020-08-20] MEDS: ENOXAPARIN 40 MG/0.4 ML (LOVENOX) SYR SC SCH ×2 (05:57→17:08)
[2020-08-20 06:15] VITALS: BP 110/67
[2020-08-20 08:51] VITALS: BP 117/66
[2020-08-20] MEDS: VITAMIN D3 125 MCG (5,000 UNITS) CAPSULE PO SCH (08:52)
[2020-08-20] MEDS: GEMFIBROZIL 600 MG (LOPID) TAB PO SCH ×2 (08:52→21:35)
[2020-08-20] MEDS: meTOprolol TARTRATE 50 MG (LOPRESSOR) TAB PO SCH ×2 (08:52→21:36)
[2020-08-20] MEDS: PIOGLITAZONE 30MG (ACTOS) TAB PO SCH (08:53)
[2020-08-20] MEDS: ROSUVASTATIN 20 MG (CRESTOR) TABLET PO SCH (08:53)
[2020-08-20] MEDS: LACTOBACILLUS ACIDOPHILUS (PROBIOTIC) CAPSULE PO SCH ×2 (08:53→21:35)
[2020-08-20] MEDS: GABAPENTIN 300 MG (NEURONTIN) CAP PO SCH ×3 (08:53→21:35)
[2020-08-20] MEDS: MONTELUKAST 10 MG (SINGULAIR) TAB PO SCH (08:53)
[2020-08-20] MEDS: ASCORBIC ACID (VIT C) 500 MG TABLET PO SCH (08:53)
[2020-08-20] MEDS: LORATADINE (CLARITIN) 10 MG TAB PO SCH (08:53)
[2020-08-20] MEDS: SENNOSIDES 8.6 MG (SENOKOT) TAB PO SCH ×2 (08:53→21:37)
[2020-08-20] MEDS: DOCUSATE SODIUM 100 MG (COLACE) CAP PO SCH ×2 (08:57→21:35)
[2020-08-20] MEDS: polyethylene glycoL POWDER 17 GM (MIRALAX) PACK PO SCH ×2 (09:03→21:37)
[2020-08-20] MEDS: DULoxetine 30 MG (CYMBALTA) CAP PO SCH (09:05)
[2020-08-20] MEDS: SENNA W/DOCUSATE (SENOKOT S) TABLET PO SCH ×2 (09:06→21:37)
[2020-08-20] MEDS: COLLAGENASE 30 GM (SANTYL) TUBE TP SCH ×2 (09:07→21:36)
[2020-08-20] MEDS: REXULTI 0.5 MG PO SCH (09:08)
[2020-08-20] MEDS: cloNIDine 0.1 MG (CATAPRES) TAB PO SCH ×2 (09:25→21:38)
--- NOTE | 2020-08-20 14:20 | PM&R Progress Note ---
Subjective HPI/CC On Admission Date Seen by Provider: Aug 20, 2020 Time Seen by Provider: 15:00 Subjective/Events-last exam 08/20/20: Holding Clonidine due to mild hypotension Left knee ulcer is healing well Wound vac maintained on coccyx Pain pill taken occasionally Good appetite 08/19/20: Patient doing well DC Dilaudid DC IVF Wound vac changed Up in chair and used sit to stand for 30 minutes 08/18/20: Patient doing well Wound vac maintained No pain reported Checked meds and labs Pain controlled IVF maintained 08/17/20: Patient doing well Slow recovery Dressing changes reveal good wound appearance s/p debridement Hgb 9.1 Cymbalta was changed to what his home dose is 08/16/20: Patient having anxiety about upcoming debridement Pain is an issue so increasing IV pain meds temporarily NPO until OR Bday is BM+ VCV may be the DC plan since his parents cannot take care of him 08/15/20: Patient doing well Up in wheelchair doing therapy outside room Dr Santillan will debride the wound tomorrow Home meds from mother will be sent to [facility] and restarted if indicated BP ok Tachycardia remains but stable 08/14/20:' Awaiting plan from Dr Santillan regarding the wound on coccyx Odor is present No pain reported by patient except neuropathy BM+ Retime Lovenox 08/13/20: Patient doing well Apathy Patient states he is homesick BM large today IVF maintained 08/12/20: Patient doing better Neuropathy of feet an issue so we discussed it Fentanyl and Oxycodone and Gabapentin BM+ 08/1008/11/20: Patient doing well Decubitus ulcer managed by Dr Santillan Continent Ivan lift Checked meds and labs Review of Systems General: Fatigue, Malaise Neurological: Weakness, Incoordination Objective Exam Vital Signs Vital Signs Date Time Temp Pulse Resp B/P (MAP) Pulse Ox O2 Delivery O2 Flow Rate FiO2 08/20/20 16:58 36.0 105 20 112/59 (76) 98 Room Air Capillary Refill : General Appearance: No Apparent Distress, WD/WN, Chronically ill, Obese HEENT: PERRL/EOMI, Normal ENT Inspection, Pharynx Normal Neck: Full Range of Motion, Normal Inspection, Non Tender, Supple Respiratory: Chest Non Tender, Lungs Clear, Normal Breath Sounds, No Accessory Muscle Use, No Respiratory Distress Cardiovascular: Regular Rate, Rhythm, No Edema, No Murmur, Normal Peripheral Pulses Gastrointestinal: Normal Bowel Sounds, No Organomegaly, No Pulsatile Mass, Non Tender, Soft Back: Normal Inspection, No CVA Tenderness, No Vertebral Tenderness Extremity: No Calf Tenderness, Other (Ulcer on knee dressed and wrapped. No leaking through. ) Neurologic/Psychiatric: Alert, Oriented x3, medical review coordinator II-XII Norm as Tested, Depressed Affect, Motor Weakness (generalized) Skin: Normal Color, Warm/Dry, Other (Decubitus ulcer on sacreal area still odorous, Dressing in place with no leaking through. ) Lymphatic: No Adenopathy Results/Procedures Lab Patient resulted labs reviewed. FIM Transfers Therapy Code Descriptions/Definitions Functional [place] Measure: 0=Not Assessed/NA 4=Minimal Assistance 1=Total Assistance 5=Supervision or Setup 2=Maximal Assistance 6=Modified [place] 3=Moderate Assistance 7=Complete IndependenceSCALE: Activities may be completed with or without assistive devices. 2-Bxinyoajfp-ttfgrkg completes the activity by him/herself with no assistance from a helper. 5-Set-up or Clean-up Assistance-helper sets up or cleans up; patient completes activity. [place] assists only prior to or following the activity. 4-Supervision or Touching Assistance-helper provides verbal cues and/or touching/steadying and/or contact guard assistance as patient completes activity. Assistance may be provided throughout the activity or intermittently. 3-Partial/Moderate Assistance-helper does LESS THAN HALF the effort. [place] lifts, holds or supports trunk or limbs, but provides less than half the effort. 2-Substantial/Maximal Assistance-helper does MORE THAN HALF the effort. [place] lifts or holds trunk or limbs and provides more than half the effort. 7-Tovyefnum-fstzgn does ALL the effort. Patient does none of the effort to complete the activity. Or, the assistance of 2 or more helpers is required for the patient to complete the activity. If activity was not attempted, code reason: 7-Patient Refused. 9-Not Applicable-not attempted and the patient did not perform the activity before the current illness, exacerbation or injury. 10-Not Attempted due to Environmental Limitations-(lack of equipment, weather restraints, etc.). 88-Not Attempted due to Medical Conditions or Safety Concerns. Roll Left to Right (QC): 5 Sit to Lying (QC): 3 Sit to Stand (QC): 1 Chair/Cpk-so-Wfakc Xfer(QC): 1 Car Transfer (QC): 1 Gait Training Does the Patient Walk?: No and Walking Goal NOT indicated Walk 10 feet (QC): 88 Walk 50 ft with 2 Turns(QC): 88 Walk 150 ft (QC): 88 Walking 10ft/uneven surface-QC: 88 Wheelchair Training Does the Pt Use a Wheelchair?: Yes Wheel 50 ft with 2 turns (QC): 2 Wheel 150 ft (QC): 2 Type of Wheelchair: Manual Stair Training 1 Step (curb) (QC): 88 4 Steps (QC): 88 12 Steps (QC): 88 Balance Picking up an Object (QC): 88 ADL-Treatment Eating (QC): 3 (Min assist for stabilization of bowl. Set up for whole meal tray. OT has to place spoon with built up handle in right hand each time, as well as Abraham cup and banana.) Oral Hygiene (QC): 7 Shower/Bathe Self (QC): 2 (OT washes pt. hair with shampoo cap while pt. up in wheelchair. When pt. is back in bed, OT assists at bed level with sponge bath. Pt. is able to wash face and upper chest when washcloth is placed in right hand. Otherwise, OT washed all parts. Pt. declines for his feet to be washed this date.) Upper Body Dressing (QC): 7 Lower Body Dressing (QC): 1 (based on current abilities, will require Ax2 for donning/ doffing undergarments/ pants.) On/Off Footwear (QC): 1 Toileting Hygiene (QC): 7 Assessment/Plan Assessment and Plan Assess & Plan/Chief Complaint Assessment:: Myopathy COVID-19 PNA 06/03/20 Hypoxia Morbid obesity HTN HLP Developmental delay/autism Decubitus ulcers coccyx and left knee s/p debridement 08/16/20 Dr Santillan Tachycardia consulted Dr Busch dx hypovolemia so started IVF Plan: Wound care IRF protocol Home meds Pain meds 08/11/20: Monitor closely Decubitus ulcer management 08/12/20: Monitor closely IVF NS Monitor tachycardia Supportive care 08/13/20: IVF Monitor closely 08/14/20: Await wound care plan Monitor closely Continue IVF 08/15/20: Debridement tomorrow Check labs in morning Home meds 08/16/20: Monitor pain Debridement today IVF 08/17/20: Monitor pain Dressing changes Start weaning down off pain meds 08/18/20: Wound vac Maintained pain meds IVF Dr Santillan 08/19/20: Monitor pain DC Dilaudid DC IVF 08/20/20: Monitor pain Check labs in am (1) Myopathy (2) Pneumonia due to 2019 novel coronavirus Status: Acute (3) Morbid obesity Status: Chronic (4) Hypoxia Status: Acute (5) T2DM (type 2 diabetes mellitus) Status: Acute HEMANTH DODD DO Aug 20, 2020 14:20
[2020-08-20 16:58] VITALS: BP 112/59
[2020-08-20 20:30] VITALS: BP 110/73
[2020-08-20] MEDS: MELATONIN 10 MG TABLET PO SCH (21:35)
[2020-08-20] MEDS: QUEtiapine 25 MG (SEROquel) TAB IMMEDIATE RELEASE PO SCH (21:35)
[2020-08-20] MEDS: TAMSULOSIN 0.4 MG (FLOMAX) CAP PO SCH (21:36)
[2020-08-21] VITALS (7 sets, daily range): BP systolic 104–130; BP diastolic 54–81
[2020-08-21] MEDS: MULTIVIT W/MINERALS TAB (THERAGRAN M) PO SCH (05:53)
[2020-08-21] MEDS: ENOXAPARIN 40 MG/0.4 ML (LOVENOX) SYR SC SCH (05:53)
[2020-08-21] MEDS: inSUlin ASPART (NovoLOG) 1 UNIT/0.01 ML (CHARGE PER UNIT) SC SCH ×4 (05:54→21:05)
[2020-08-21 06:48] LABS: BASOPHILS # (AUTO) 0.1 10^3/uL (0.0-0.1); BASOPHILS % (AUTO) 1 % (0-10); EOSINOPHILS # (AUTO) 0.2 10^3/uL (0.0-0.3); EOSINOPHILS % (AUTO) 2 % (0-10); HEMATOCRIT 22 % (40-54); LYMPHOCYTES % (AUTO) 30 % (12-44); MEAN CORPUSCULAR HEMOGLOBIN 26 pg (25-34); MEAN CORPUSCULAR HGB CONC 32 g/dL (32-36); MEAN CORPUSCULAR VOLUME 82 fL (80-99); MEAN PLATELET VOLUME 8.6 fL (9.0-12.2); MONOCYTES # (AUTO) 1.3 10^3/uL (0.0-1.0); MONOCYTES % (AUTO) 10 % (0-12); NEUTROPHILS # (AUTO) 7.4 10^3/uL (1.8-7.8); NEUTROPHILS % (AUTO) 57 % (42-75); PLATELET COUNT 662 10^3/uL (130-400)
[2020-08-21 07:06] LABS: ALBUMIN 3.6 GM/DL (3.2-4.5); CHLORIDE 102 MMOL/L (98-107); POTASSIUM 4.4 MMOL/L (3.6-5.0); SODIUM 138 MMOL/L (135-145)
[2020-08-21 07:07] LABS: CALCIUM 9.6 MG/DL (8.5-10.1)
[2020-08-21 07:09] LABS: GLUCOSE 118 MG/DL (70-105); TOTAL PROTEIN 7.2 GM/DL (6.4-8.2)
[2020-08-21 07:10] LABS: BILIRUBIN,TOTAL 0.3 MG/DL (0.1-1.0); CARBON DIOXIDE 24 MMOL/L (21-32)
[2020-08-21 07:12] LABS: ALKALINE PHOSPHATASE 105 U/L (40-136); GFR ESTIMATED > 60
[2020-08-21 07:13] LABS: BUN/CREATININE RATIO 13
[2020-08-21 07:15] LABS: ALANINE AMINOTRANSFERASE 15 U/L (0-55)
[2020-08-21] MEDS ORDERED: NS IV 500 ML 500 ML IV NR (07:15)
[2020-08-21] MEDS: ASCORBIC ACID (VIT C) 500 MG TABLET PO SCH (08:23)
[2020-08-21] MEDS: DULoxetine 30 MG (CYMBALTA) CAP PO SCH (08:23)
[2020-08-21] MEDS: VITAMIN D3 125 MCG (5,000 UNITS) CAPSULE PO SCH (08:31)
[2020-08-21] MEDS: SENNA W/DOCUSATE (SENOKOT S) TABLET PO SCH ×2 (08:31→22:02)
[2020-08-21] MEDS: MONTELUKAST 10 MG (SINGULAIR) TAB PO SCH (08:31)
[2020-08-21] MEDS: LACTOBACILLUS ACIDOPHILUS (PROBIOTIC) CAPSULE PO SCH ×2 (08:31→21:52)
[2020-08-21] MEDS: ROSUVASTATIN 20 MG (CRESTOR) TABLET PO SCH (08:31)
[2020-08-21] MEDS: GEMFIBROZIL 600 MG (LOPID) TAB PO SCH ×2 (08:31→21:53)
[2020-08-21] MEDS: PIOGLITAZONE 30MG (ACTOS) TAB PO SCH (08:31)
[2020-08-21] MEDS: meTOprolol TARTRATE 50 MG (LOPRESSOR) TAB PO SCH ×2 (08:31→21:52)
[2020-08-21] MEDS: DOCUSATE SODIUM 100 MG (COLACE) CAP PO SCH ×2 (08:32→22:02)
[2020-08-21] MEDS: LORATADINE (CLARITIN) 10 MG TAB PO SCH (08:32)
[2020-08-21] MEDS: GABAPENTIN 300 MG (NEURONTIN) CAP PO SCH ×3 (08:32→21:52)
[2020-08-21] MEDS: cloNIDine 0.1 MG (CATAPRES) TAB PO SCH (08:34)
[2020-08-21] MEDS: polyethylene glycoL POWDER 17 GM (MIRALAX) PACK PO SCH ×2 (08:34→22:02)
[2020-08-21] MEDS: REXULTI 0.5 MG PO SCH (08:36)
[2020-08-21] MEDS: SENNOSIDES 8.6 MG (SENOKOT) TAB PO SCH ×2 (08:47→22:02)
--- NOTE | 2020-08-21 09:58 | Occupational Ther Daily Note ---
OT Current Status-Daily Note Subjective Pt. reports pain throughout treatment. Pain in bottom when sitting, and pain in foot when it is touched, or when he is in standing. Pt. reports 4/10 pain, and is given pain medication. Mental Status/Objective Patient Orientation: Person, Place ADL-Treatment Therapy Code Descriptions/Definitions Functional [place] Measure: 0=Not Assessed/NA 4=Minimal Assistance 1=Total Assistance 5=Supervision or Setup 2=Maximal Assistance 6=Modified [place] 3=Moderate Assistance 7=Complete IndependenceSCALE: Activities may be completed with or without assistive devices. 9-Nceruhfjrh-rekntzj completes the activity by him/herself with no assistance from a helper. 5-Set-up or Clean-up Assistance-helper sets up or cleans up; patient completes activity. [place] assists only prior to or following the activity. 4-Supervision or Touching Assistance-helper provides verbal cues and/or touching/steadying and/or contact guard assistance as patient completes activity. Assistance may be provided throughout the activity or intermittently. 3-Partial/Moderate Assistance-helper does LESS THAN HALF the effort. [place] lifts, holds or supports trunk or limbs, but provides less than half the effort. 2-Substantial/Maximal Assistance-helper does MORE THAN HALF the effort. [place] lifts or holds trunk or limbs and provides more than half the effort. 3-Ikroarjrs-ziwjep does ALL the effort. Patient does none of the effort to complete the activity. Or, the assistance of 2 or more helpers is required for the patient to complete the activity. If activity was not attempted, code reason: 7-Patient Refused. 9-Not Applicable-not attempted and the patient did not perform the activity before the current illness, exacerbation or injury. 10-Not Attempted due to Environmental Limitations-(lack of equipment, weather restraints, etc.). 88-Not Attempted due to Medical Conditions or Safety Concerns. Oral Hygiene (QC): 3 (Min assist to brush teeth sitting on side of bed. Pt. uses built up foam handle on toothbrush.) Pt. seen for partial co-treatment with PT. Pt. verbalizes pain this a.m. and is somewhat difficult to encourage to transfer out of bed. Pt. does finally agree to sit on side of bed. Pt. is able to transfer supine-sit with mod assist, with cues for encouragement. OT facilitated ADL skills and UE function while PT worked on sitting balance and weight shifts. Pt. agrees to brush teeth. He requires min assist for this. Pt. is able to brush hair on right side using brush, but OT brushes the rest of hair. Pt. stands in sit-stand lift x 3, approximately 3-5 minutes each time. Pt. is encouraged to attempt more, as he is somewhat self limiting with treatment. Pt. transfers back sit-supine with mod assist. Max x 2 for bed mobility. OT removes bilateral wrist braces and assists pt. with PROM to wrist extensors. Facilitated finger flexion and movement in available ranges. All needs met in bed. Education OT Patient Education: Correct positioning, Exercise program, Modified ADL techniques, Progress toward Goal/Update tx plan, Purpose of tx/functional activities, Reviewed precautions, Rehab process, Transfer techniques Teaching Recipient: Patient Teaching Methods: Demonstration, Discussion Response to Teaching: Verbalize Understanding, Return Demonstration OT Short Term Goals Short Term Goals Eatin Oral hygiene: 3 Toileting hygiene: 2 Shower/bathe self: 2 Upper body dressin Lower body dressin Putting on/taking off footwear: 2 OT Shelter Goals Centrifugal Casting Machine Operator Goals Time Frame: Aug 31, 2020 Eating (QC): 6 Oral Hygiene (QC): 6 Toileting Hygiene (QC): 4 Shower/Bathe Self (QC): 4 Upper Body Dressing (QC): 6 Lower Body Dressing (QC): 4 On/Off Footwear (QC): 4 Additional Goals: 1-Demonstrate ADL Tasks, 2-Verbalize Understanding, 3- ImproveStrength/Héctor 1=Demonstrate adherence to instructed precautions during ADL tasks. 2=Patient will verbalize/demonstrate understanding of assistive devices/modifications for ADL. 3=Patient will improve strength/tolerance for activity to enable patient to perform ADL's. OT Education/Plan Problem List/Assessment Assessment: Decreased Activ Tolerance, Decreased UE Strength, Dependent Transfers, Impaired Bed Mobility, Impaired Coordination, Impaired Funct Balance, Impaired I ADL's, Impaired Self-Care Skills, Restricted Funct UE ROM Discharge Recommendations Plan/Recommendations: Continue POC Therapy Discharge Recommendati: 24 Hour Supervision Treatment Plan/Plan of Care Treatment,Training & Education: Yes Patient would benefit from OT for education, treatment and training to promote independence in ADL's, mobility, safety and/or upper extremity function for ADL's. Plan of Care: ADL Retraining, Caregiver Training, Concurrent Therapy, Fun ctional Mobility, Group Exercise/Act as Ind, Orthotic Fitting/Training, UE Funct Exercise/Act, UE Neuromus Re-Ed/Coord, W/C Management Training Treatment Duration: Aug 31, 2020 Frequency: Modified Program (IRF) Estimated Hrs Per Day: 1 hour per day ([place] Waiver) Agreement: Yes Rehab Potential: Fair Time/GCodes Start Time: 08:30 Stop Time: 09:25 Total Time Billed (hr/min): 55 Billed Treatment Time 2151-3111 1, ADL x 15minutes, FA x 15minutes- Co-treatment with PT [id number] Ex x 15minutes, FA x 10minutes SWATI DOS SANTOS OT Aug 21, 2020 09:58
--- NOTE | 2020-08-21 10:27 | PM&R Progress Note ---
Subjective HPI/CC On Admission Date Seen by Provider: Aug 21, 2020 Time Seen by Provider: 10:30 Subjective/Events-last exam 08/21/20: Hgb 7.0 so will give one unit of blood Wound vac maintained Reluctant to work with PT Held Clonidine for BP so I changed that to prn Odor from wound will require Dr Barakat to take to OR and debride tomorrow 08/20/20: Holding Clonidine due to mild hypotension Left knee ulcer is healing well Wound vac maintained on coccyx Pain pill taken occasionally Good appetite 08/19/20: Patient doing well DC Dilaudid DC IVF Wound vac changed Up in chair and used sit to stand for 30 minutes 08/18/20: Patient doing well Wound vac maintained No pain reported Checked meds and labs Pain controlled IVF maintained 08/17/20: Patient doing well Slow recovery Dressing changes reveal good wound appearance s/p debridement Hgb 9.1 Cymbalta was changed to what his home dose is 08/16/20: Patient having anxiety about upcoming debridement Pain is an issue so increasing IV pain meds temporarily NPO until OR Bday is BM+ VCV may be the DC plan since his parents cannot take care of him 08/15/20: Patient doing well Up in wheelchair doing therapy outside room Dr Santillan will debride the wound tomorrow Home meds from mother will be sent to tech and restarted if indicated BP ok Tachycardia remains but stable 08/14/20:' Awaiting plan from Dr Santillan regarding the wound on coccyx Odor is present No pain reported by patient except neuropathy BM+ Retime Lovenox 08/13/20: Patient doing well Apathy Patient states he is homesick BM large today IVF maintained 08/12/20: Patient doing better Neuropathy of feet an issue so we discussed it Fentanyl and Oxycodone and Gabapentin BM+ 08/1008/11/20: Patient doing well Decubitus ulcer managed by Dr Santillan Continent Ivan lift Checked meds and labs Review of Systems General: Fatigue, Malaise Focused Exam Lactate Level 08/21/20 08:00: Lactic Acid Level 1.14 Lactic Acid Level Objective Exam Vital Signs Vital Signs Date Time Temp Pulse Resp B/P (MAP) Pulse Ox O2 Delivery O2 Flow Rate FiO2 08/21/20 21:50 94 Room Air 08/21/20 21:45 116 18 130/80 (97) 08/21/20 17:37 35.0 Capillary Refill : General Appearance: No Apparent Distress, WD/WN, Chronically ill, Obese HEENT: PERRL/EOMI, Normal ENT Inspection, Pharynx Normal Neck: Full Range of Motion, Normal Inspection, Non Tender, Supple Respiratory: Chest Non Tender, Lungs Clear, Normal Breath Sounds, No Accessory Muscle Use, No Respiratory Distress Cardiovascular: Regular Rate, Rhythm, No Edema, No Murmur, Normal Peripheral Pulses Gastrointestinal: Normal Bowel Sounds, No Organomegaly, No Pulsatile Mass, Non Tender, Soft Back: Normal Inspection, No CVA Tenderness, No Vertebral Tenderness Extremity: No Calf Tenderness, Other (Ulcer on knee dressed and wrapped. No leaking through. ) Neurologic/Psychiatric: Alert, Oriented x3, boat tender II-XII Norm as Tested, Depressed Affect, Motor Weakness (generalized) Skin: Normal Color, Warm/Dry, Other (Decubitus ulcer on sacreal area still odorous, Dressing in place with no leaking through. ) Lymphatic: No Adenopathy Results/Procedures Lab Laboratory Tests 08/21/20 06:39 08/22/20 05:30 Patient resulted labs reviewed. FIM Transfers Therapy Code Descriptions/Definitions Functional [place] Measure: 0=Not Assessed/NA 4=Minimal Assistance 1=Total Assistance 5=Supervision or Setup 2=Maximal Assistance 6=Modified [place] 3=Moderate Assistance 7=Complete IndependenceSCALE: Activities may be completed with or without assistive devices. 1-Agusynplkq-lciueil completes the activity by him/herself with no assistance from a helper. 5-Set-up or Clean-up Assistance-helper sets up or cleans up; patient completes activity. [place] assists only prior to or following the activity. 4-Supervision or Touching Assistance-helper provides verbal cues and/or touchi ng/steadying and/or contact guard assistance as patient completes activity. Assistance may be provided throughout the activity or intermittently. 3-Partial/Moderate Assistance-helper does LESS THAN HALF the effort. [place] lifts, holds or supports trunk or limbs, but provides less than half the effort. 2-Substantial/Maximal Assistance-helper does MORE THAN HALF the effort. [place] lifts or holds trunk or limbs and provides more than half the effort. 0-Acywclrpj-aidbox does ALL the effort. Patient does none of the effort to complete the activity. Or, the assistance of 2 or more helpers is required for the patient to complete the activity. If activity was not attempted, code reason: 7-Patient Refused. 9-Not Applicable-not attempted and the patient did not perform the activity befo re the current illness, exacerbation or injury. 10-Not Attempted due to Environmental Limitations-(lack of equipment, weather restraints, etc.). 88-Not Attempted due to Medical Conditions or Safety Concerns. Roll Left to Right (QC): 5 Sit to Lying (QC): 3 Sit to Stand (QC): 1 Chair/Xhc-es-Bqzks Xfer(QC): 1 Car Transfer (QC): 1 Gait Training Does the Patient Walk?: No and Walking Goal NOT indicated Walk 10 feet (QC): 88 Walk 50 ft with 2 Turns(QC): 88 Walk 150 ft (QC): 88 Walking 10ft/uneven surface-QC: 88 Wheelchair Training Does the Pt Use a Wheelchair?: Yes Wheel 50 ft with 2 turns (QC): 2 Wheel 150 ft (QC): 2 Type of Wheelchair: Manual Stair Training 1 Step (curb) (QC): 88 4 Steps (QC): 88 12 Steps (QC): 88 Balance Picking up an Object (QC): 88 ADL-Treatment Eating (QC): 3 (Min assist for stabilization of bowl. Set up for whole meal tray. OT has to place spoon with built up handle in right hand each time, as well as Abraham cup and banana.) Oral Hygiene (QC): 3 (Min assist to brush teeth sitting on side of bed. Pt. uses built up foam handle on toothbrush.) Shower/Bathe Self (QC): 2 (OT washes pt. hair with shampoo cap while pt. up in wheelchair. When pt. is back in bed, OT assists at bed level with sponge bath. Pt. is able to wash face and upper chest when washcloth is placed in right hand. Otherwise, OT washed all parts. Pt. declines for his feet to be washed this date.) Upper Body Dressing (QC): 7 Lower Body Dressing (QC): 1 (based on current abilities, will require Ax2 for donning/ doffing undergarments/ pants.) On/Off Footwear (QC): 1 Toileting Hygiene (QC): 7 Assessment/Plan Assessment and Plan Assess & Plan/Chief Complaint Assessment:: Myopathy COVID-19 PNA 06/03/20 Hypoxia Morbid obesity HTN HLP Developmental delay/autism Decubitus ulcers coccyx and left knee s/p debridement 08/16/20 Dr Santillan Tachycardia consulted Dr Busch dx hypovolemia so started IVF Plan: Wound care IRF protocol Home meds Pain meds 08/11/20: Monitor closely Decubitus ulcer management 08/12/20: Monitor closely IVF NS Monitor tachycardia Supportive care 08/13/20: IVF Monitor closely 08/14/20: Await wound care plan Monitor closely Continue IVF 08/15/20: Debridement tomorrow Check labs in morning Home meds 08/16/20: Monitor pain Debridement today IVF 08/17/20: Monitor pain Dressing changes Start weaning down off pain meds 08/18/20: Wound vac Maintained pain meds IVF Dr Santillan 08/19/20: Monitor pain DC Dilaudid DC IVF 08/20/20: Monitor pain Check labs in am 08/21/20: Move to 4th floor tomorrow in prep for OR on wound (1) Myopathy (2) Pneumonia due to 2019 novel coronavirus Status: Acute (3) Morbid obesity Status: Chronic (4) Hypoxia Status: Acute (5) T2DM (type 2 diabetes mellitus) Status: Acute HEMANTH DODD DO Aug 21, 2020 10:27
[2020-08-21] MEDS ORDERED: cloNIDine 0.1 MG (CATAPRES) TAB PO PRN (10:30)
[2020-08-21] MEDS: COLLAGENASE 30 GM (SANTYL) TUBE TP SCH ×2 (11:22→21:59)
--- NOTE | 2020-08-21 11:43 | Physical Therapy Daily Note ---
PT Daily Note-Current Subjective Pt reluctant to participate. Pt c/o pain in (B) feet and bottom. Pain rated 5- 6/10 upon arrival. Pt declines up in chair. Pt does note he initially gets some relief with sit to stand. Transfers SCALE: Activities may be completed with or without assistive devices. 7-Snmvorlycd-gekbcnz completes the activity by him/herself with no assistance from a helper. 5-Set-up or Clean-up Assistance-helper sets up or cleans up; patient completes activity. [place] assists only prior to or following the activity. 4-Supervision or Touching Assistance-helper provides verbal cues and/or touching/steadying and/or contact guard assistance as patient completes activity. Assistance may be provided throughout the activity or intermittently. 3-Partial/Moderate Assistance-helper does LESS THAN HALF the effort. [place] lifts, holds or supports trunk or limbs, but provides less than half the effort. 2-Substantial/Maximal Assistance-helper does MORE THAN HALF the effort. [place] lifts or holds trunk or limbs and provides more than half the effort. 7-Qgunbjlhi-fbrpci does ALL the effort. Patient does none of the effort to complete the activity. Or, the assistance of 2 or more helpers is required for the patient to complete the activity. If activity was not attempted, code reason: 7-Patient Refused. 9-Not Applicable-not attempted and the patient did not perform the activity before the current illness, exacerbation or injury. 10-Not Attempted due to Environmental Limitations-(lack of equipment, weather restraints, etc.). 88-Not Attempted due to Medical Conditions or Safety Concerns. Treatments Pt. seen for partial co-treatment with OT due to poor tolerance to activity and poor endurance at this time. Pt seen for LE ther ex in bed: including SAQ, hip flexion, hip abd. Pt able to complete about 5-10 reps stopping frequently due to pain especially in feel. Pt agreeable with much encouragement. Pt. kathy benton pain this a.m. and is somewhat difficult to encourage to transfer out of bed. Pt. does finally agree to sit on side of bed. Pt. is able to transfer supine-sit with mod assist, with cues for encouragement. OT facilitated ADL skills and UE function while PT worked on sitting balance and weight shifts. Pt. stands in sit-stand lift x 3, approximately 3-5 minutes each time. Pt. is encouraged to attempt more, as he is somewhat self limiting with treatment. Pt able increase weight bearing through feet minimally upon vc's activating LE minimally. Pt in care of OT post therapy session. Assessment Current Status: Poor Progress Pt is limited by pain, requires continual encouragement for participation. Pt in care of OT post therapy session. PT Short Term Goals Short Term Goals Time Frame: Aug 17, 2020 Roll Left & Right: 4 Sit to lyin Lying to sitting on side of be: 2 Sit to stand: 1 Chair/xsn-sf-sqfdv transfer: 1 PT Prison Goals Prison Goals PT Prison Goals Time Frame: Aug 31, 2020 Roll Left & Right (QC): 6 Sit to Lying (QC): 3 Lying-Sitting on Side/Bed(QC): 3 Sit to Stand (QC): 2 Chair/Wwz-bw-Sfxnh Xfer(QC): 2 Toilet Transfer (QC): 2 Car Transfer (QC): 1 Does the Patient Walk: No and Walking Goal NOT indicated Walk 10 feet (QC): 88 Walk 50ft with 2 Turns (QC): 88 Walk 150 ft (QC): 88 Walking 10ft on Uneven Surface: 88 1 Step (curb) (QC): 88 4 Steps (QC): 88 12 Steps (QC): 88 Picking up an Object (QC): 88 Wheel 50 feet with 2 turns (QC: 3 Wheel 150 feet: 3 PT Plan Treatment/Plan Treatment Plan: Continue Plan of Care Treatment Plan: Bed Mobility, Education, Functional Activity Héctor, Functional Strength, Group Therapy, Gait, Safety, Therapeutic Exercise, Transfers Treatment Duration: Aug 31, 2020 Frequency: Estimated Hrs Per Day: 1 hour per day Patient and/or Family Agrees t: Yes Time/GCodes Time In: 805 Time Out: 900 Total Billed Treatment Time: 55 Total Billed Treatment 1, ther ex 25', FA 30' (Co-treat with OT x 30', 830-900) SULTANA ROWLAND CPTA Aug 21, 2020 11:43
[2020-08-21] MEDS: DICLOFENAC 1% GEL 100 GM (VOLTAREN) TUBE TOP SCH ×3 (13:05→22:01)
--- NOTE | 2020-08-21 13:09 | Speech Therapy Daily Note ---
Speech Daily Progress Note Subjective Date Seen by Provider: Aug 21, 2020 Time Seen by Provider: 00:30 Patient was resting in his bed following OT and PT session. Objective Patient completed temporal exercises with a current calendar presented with 90% given minimal cues. Assessment Assessment Current Status: Good Progress Treatment Plan Continue Plan of Care Speech Short Term Goals Short Term Goals Short Term Goals 1) Patient will complete memory tasks related to his daily needs at 90% or greater. 2) Patient will complete safety awareness tasks related to his daily needs at 90% or greater. 3) Patient will complete problem solving tasks related to his daily needs at 90% or greater. Speech Intermediate Goals Intermediate Goals Patient will improve cognitive-communication necessary for safety and daily living tasks with minimal assist. Speech-Plan Patient/Family Goals Patient/Family Goals: Patient will discharge to his home where he lives with his parents. Treatment Plan Speech Therapy Treatment Plan: Continue Plan of Care Treatment Duration: Aug 30, 2020 Frequency: 4 times per week (Patient will receive skilled ST 4-5x per week) Estimated Hrs Per Day: .5 hour per day Rehab Potential: Fair Barriers to Learning: Patient's critical illness/recovery Pt/Family Agrees to Plan: Yes Safety Risks/Education Teaching Recipient: Patient Teaching Methods: Demonstration, Discussion Response to Teaching: Verbalize Understanding, Return Demonstration Education Topics Provided: Continued communication/safety Time Speech Therapy Time In: 11:30 Speech Therapy Time Out: 12:00 Total Billed Time: 30 Billed Treatment Time 1, BRADEN Wolfe Aug 21, 2020 13:09
[2020-08-21] MEDS: MICONAZOLE 2% POWDER (DESENEX AF) 90 GM TOP SCH (13:47)
--- NOTE | 2020-08-21 14:04 | Occupational Ther Daily Note ---
OT Current Status-Daily Note Subjective No pain reported. Appearance Pt. in bed. Agrees to treatment. Mental Status/Objective Patient Orientation: Person, Place Attachments: IV ADL-Treatment Therapy Code Descriptions/Definitions Functional [place] Measure: 0=Not Assessed/NA 4=Minimal Assistance 1=Total Assistance 5=Supervision or Setup 2=Maximal Assistance 6=Modified [place] 3=Moderate Assistance 7=Complete IndependenceSCALE: Activities may be completed with or without assistive devices. 1-Iclklmwgpa-ooosipd completes the activity by him/herself with no assistance from a helper. 5-Set-up or Clean-up Assistance-helper sets up or cleans up; patient completes activity. [place] assists only prior to or following the activity. 4-Supervision or Touching Assistance-helper provides verbal cues and/or touching/steadying and/or contact guard assistance as patient completes activity. Assistance may be provided throughout the activity or intermittently. 3-Partial/Moderate Assistance-helper does LESS THAN HALF the effort. [place] li fts, holds or supports trunk or limbs, but provides less than half the effort. 2-Substantial/Maximal Assistance-helper does MORE THAN HALF the effort. [place] lifts or holds trunk or limbs and provides more than half the effort. 9-Hznilrmmm-wlmsta does ALL the effort. Patient does none of the effort to complete the activity. Or, the assistance of 2 or more helpers is required for the patient to complete the activity. If activity was not attempted, code reason: 7-Patient Refused. 9-Not Applicable-not attempted and the patient did not perform the activity before the current illness, exacerbation or injury. 10-Not Attempted due to Environmental Limitations-(lack of equipment, weather restraints, etc.). 88-Not Attempted due to Medical Conditions or Safety Concerns. Other Treatment Pt. in bed, finishing with PT. OT assisted for positioning on side. Pt. needed pillow adjusted under head and so OT encouraged pt. to position for himself by using hand. He is able to do this. Nursing hooking pt. up to receive blood, as his hemoglobin is 7. OT provides gentle PROM to bilateral hands in wrist extension, finger extension. Pt. encouraged to actively do this for self. He is able to flex fingers, but is still unable to extend wrists or fingers. Pt. is encouraged to continue moving hands and building strength on his own, even when therapy is not in room. Pt. verbalizes understanding. Pt. comfortable in bed with nursing still assessing. All needs met. Education OT Patient Education: Correct positioning, Exercise program, Progress toward Goal/Update tx plan, Purpose of tx/functional activities, Reviewed precautions, Rehab process, Transfer techniques Teaching Recipient: Patient Teaching Methods: Demonstration, Discussion Response to Teaching: Verbalize Understanding, Return Demonstration OT Short Term Goals Short Term Goals Eatin Oral hygiene: 3 Toileting hygiene: 2 Shower/bathe self: 2 Upper body dressin Lower body dressin Putting on/taking off footwear: 2 OT Stone Rigger Goals [facility] Goals Time Frame: Aug 31, 2020 Eating (QC): 6 Oral Hygiene (QC): 6 Toileting Hygiene (QC): 4 Shower/Bathe Self (QC): 4 Upper Body Dressing (QC): 6 Lower Body Dressing (QC): 4 On/Off Footwear (QC): 4 Additional Goals: 1-Demonstrate ADL Tasks, 2-Verbalize Understanding, 3- ImproveStrength/Héctor 1=Demonstrate adherence to instructed precautions during ADL tasks. 2=Patient will verbalize/demonstrate understanding of assistive devices/modifications for ADL. 3=Patient will improve strength/tolerance for activity to enable patient to perform ADL's. OT Education/Plan Problem List/Assessment Assessment: Decreased Activ Tolerance, Decreased UE Strength, Dependent Transfers, Impaired Bed Mobility, Impaired Funct Balance, Impaired I ADL's, Impaired Self-Care Skills, Restricted Funct UE ROM Discharge Recommendations Plan/Recommendations: Continue POC Therapy Discharge Recommendati: Post Acute OT Treatment Plan/Plan of Care Treatment,Training & Education: Yes Patient would benefit from OT for education, treatment and training to promote independence in ADL's, mobility, safety and/or upper extremity function for ADL's. Plan of Care: ADL Retraining, Caregiver Training, Concurrent Therapy, Functional Mobility, Group Exercise/Act as Ind, Orthotic Fitting/Training, UE Funct Exercise/Act, UE Neuromus Re-Ed/Coord, W/C Management Training Treatment Duration: Aug 31, 2020 Frequency: Modified Program (IRF) Estimated Hrs Per Day: 1 hour per day (Covid Waiver) Agreement: Yes Rehab Potential: Fair Time/GCodes Start Time: 13:30 Stop Time: 13:50 Total Time Billed (hr/min): 20 Billed Treatment Time 1, Ex SWATI DOS SANTOS OT Aug 21, 2020 14:04
--- NOTE | 2020-08-21 14:14 | Physical Therapy Daily Note ---
PT Daily Note-Current Subjective Pt agreeable. Pt c/o pain in bottom but does not rate pain. Pt reports decreased pain with performance of ther ex, specifically bridges. Transfers SCALE: Activities may be completed with or without assistive devices. 6-Ciumqgujor-fgleqgn completes the activity by him/herself with no assistance from a helper. 5-Set-up or Clean-up Assistance-helper sets up or cleans up; patient completes activity. [place] assists only prior to or following the activity. 4-Supervision or Touching Assistance-helper provides verbal cues and/or touch ing/steadying and/or contact guard assistance as patient completes activity. Assistance may be provided throughout the activity or intermittently. 3-Partial/Moderate Assistance-helper does LESS THAN HALF the effort. [place] lifts, holds or supports trunk or limbs, but provides less than half the effort. 2-Substantial/Maximal Assistance-helper does MORE THAN HALF the effort. [place] lifts or holds trunk or limbs and provides more than half the effort. 4-Ooczygnqr-eenbau does ALL the effort. Patient does none of the effort to complete the activity. Or, the assistance of 2 or more helpers is required for the patient to complete the activity. If activity was not attempted, code reason: 7-Patient Refused. 9-Not Applicable-not attempted and the patient did not perform the activity before the current illness, exacerbation or injury. 10-Not Attempted due to Environmental Limitations-(lack of equipment, weather restraints, etc.). 88-Not Attempted due to Medical Conditions or Safety Concerns. Treatments Pt in (L) sidelying. Pt performed (R) LE clamshell x 20. Pt repositioned in supine with max A. Performed SAQ and partial bridge with legs resting on bolster 2 x 20 reps. Pt repositioned in (R) sidelying with max A. Assessment Current Status: Fair Progress Pt showed improved participation in conversation and in therapeutic exercises. Pt found that attempts to bridge helped decrease pain and pressure on sacrum. Pt continues to be dependent for all bed mobility. Pt in care of OT post therapy session. PT Short Term Goals Short Term Goals Time Frame: Aug 17, 2020 Roll Left & Right: 4 Sit to lyin Lying to sitting on side of be: 2 Sit to stand: 1 Chair/nwz-rp-yhcvf transfer: 1 PT Longterm Goals Longterm Goals PT Longterm Goals Time Frame: Aug 31, 2020 Roll Left & Right (QC): 6 Sit to Lying (QC): 3 Lying-Sitting on Side/Bed(QC): 3 Sit to Stand (QC): 2 Chair/Njh-wh-Flhwo Xfer(QC): 2 Toilet Transfer (QC): 2 Car Transfer (QC): 1 Does the Patient Walk: No and Walking Goal NOT indicated Walk 10 feet (QC): 88 Walk 50ft with 2 Turns (QC): 88 Walk 150 ft (QC): 88 Walking 10ft on Uneven Surface: 88 1 Step (curb) (QC): 88 4 Steps (QC): 88 12 Steps (QC): 88 Picking up an Object (QC): 88 Wheel 50 feet with 2 turns (QC: 3 Wheel 150 feet: 3 PT Plan Treatment/Plan Treatment Plan: Continue Plan of Care Treatment Plan: Bed Mobility, Education, Functional Activity Héctor, Functional Strength, Group Therapy, Gait, Safety, Therapeutic Exercise, Transfers Treatment Duration: Aug 31, 2020 Frequency: Estimated Hrs Per Day: 1 hour per day Patient and/or Family Agrees t: Yes Time/GCodes Time In: 1310 Time Out: 1330 Total Billed Treatment Time: 20 Total Billed Treatment 1, ther ex 20min SULTANA ROWLAND CPTDanae Aug 21, 2020 14:14
--- NOTE | 2020-08-21 16:37 | Progress Note-Pre Operative ---
Pre-Operative Progress Note H&P Reviewed The H&P was reviewed, patient examined and no changes noted. Date Seen by Provider: Aug 21, 2020 Time Seen by Provider: 16:00 Date H&P Reviewed: Aug 21, 2020 Time H&P Reviewed: 16:00 Pre-Operative Diagnosis: stage4 sacral decubitus ulcer AARTI MARCUS MD Aug 21, 2020 16:37
[2020-08-21] MEDS: CEFEPIME INJECTION 1,000 MG in WATER (STERILE) FOR INJECTION 10 ML IV SCH (18:04)
--- NOTE | 2020-08-21 18:23 | Progress Note ---
Subjective Date Seen by a Provider: Aug 21, 2020 Time Seen by a Provider: 17:50 Subjective/Events-last exam Patient seen with Dr. Barakat. Patient reports doing well. Having some sacral discomfort. Tolerating diet. Denies any fever/chills. Focused Exam Lactate Level 08/21/20 08:00: Lactic Acid Level 1.14 Objective Exam Vital Signs Date Time Temp Pulse Resp B/P (MAP) Pulse Ox O2 Delivery O2 Flow Rate FiO2 08/21/20 17:37 35.0 108 20 115/66 (82) 96 Room Air 08/21/20 16:34 35.0 108 20 115/66 96 Room Air 08/21/20 13:50 36.8 103 20 104/54 95 Room Air 08/21/20 13:38 36.8 103 21 126/81 96 Room Air 08/21/20 12:58 37.0 105 20 122/78 (93) 96 Room Air 08/21/20 08:41 Room Air 08/21/20 06:00 36.0 96 18 114/66 (82) 97 Room Air 08/20/20 21:56 96 Room Air 08/20/20 21:00 96 Room Air 08/20/20 20:30 116 110/73 (85) I & O 08/21/20 07:00 Intake Total 1825 ml Output Total 4450 ml Balance -2625 ml Capillary Refill : General Appearance: No Apparent Distress, WD/WN, Obese Neck: Full Range of Motion, Normal Inspection Respiratory: No Accessory Muscle Use, No Respiratory Distress Cardiovascular: Regular Rate, Rhythm, No Edema Gastrointestinal: normal bowel sounds, non tender, soft Extremity: Normal Inspection, Normal Range of Motion Neurologic/Psychiatric: Alert, Oriented x3 Skin: Other (Sacral decub ulcer with dressing in place. There is an odor from wound as well as areas of necrotic tissue with some areas of granulation tissue.) Results Lab Laboratory Tests 08/20/20 20:40: Glucometer 137H 08/21/20 05:51: Glucometer 110 08/21/20 06:39: White Blood Count 13.0H, Red Blood Count 2.67L, Hemoglobin 7.0L, Hematocrit 22L, Mean Corpuscular Volume 82, Mean Corpuscular Hemoglobin 26, Mean Corpuscular Hemoglobin Concent 32, Red Cell Distribution Width 14.3, Platelet Count 662H, Mean Platelet Volume 8.6L, Immature Granulocyte % (Auto) 1, Neutrophils (%) (Auto) 57, Lymphocytes (%) (Auto) 30, Monocytes (%) (Auto) 10, Eosinophils (%) (Auto) 2, Basophils (%) (Auto) 1, Neutrophils # (Auto) 7.4, Lymphocytes # (Auto) 4.0, Monocytes # (Auto) 1.3H, Eosinophils # (Auto) 0.2, Basophils # (Auto) 0.1, Immature Granulocyte # (Auto) 0.1, Sodium Level 138, Potassium Level 4.4, Chloride Level 102, Carbon Dioxide Level 24, Anion Gap 12, Blood Urea Nitrogen 8, Creatinine 0.60, Estimat Glomerular Filtration Rate > 60, BUN/Creatinine Ratio 13, Glucose Level 118H, Calcium Level 9.6, Corrected Calcium 9.9, Total Bilirubin 0.3, Aspartate Amino Transf (AST/SGOT) 11, Alanine Aminotransferase (ALT/SGPT) 15, Alkaline Phosphatase 105, Total Protein 7.2, Albumin 3.6, Proc alcitonin 0.03 08/21/20 08:00: Lactic Acid Level 1.14 08/21/20 10:55: Glucometer 124H 08/21/20 16:31: Glucometer 116H Assessment/Plan Assessment/Plan Assess & Plan/Chief Complaint A 34 year old male with a sacral decub ulcer VSS WBC 13 Continue abx and pain medication Will schedule for debridement of sacral ulcer tomorrow. GABY FAGAN APRN Aug 21, 2020 18:23
[2020-08-21] MEDS: QUEtiapine 25 MG (SEROquel) TAB IMMEDIATE RELEASE PO SCH (21:52)
[2020-08-21] MEDS: MELATONIN 10 MG TABLET PO SCH (21:52)
[2020-08-21] MEDS: TAMSULOSIN 0.4 MG (FLOMAX) CAP PO SCH (21:53)
[2020-08-22] MEDS: CEFEPIME INJECTION 1,000 MG in WATER (STERILE) FOR INJECTION 10 ML IV SCH ×3 (00:20→11:58)
[2020-08-22 05:40] LABS: BASOPHILS # (AUTO) 0.1 10^3/uL (0.0-0.1); BASOPHILS % (AUTO) 1 % (0-10); EOSINOPHILS # (AUTO) 0.4 10^3/uL (0.0-0.3); EOSINOPHILS % (AUTO) 3 % (0-10); HEMATOCRIT 33 % (40-54); HEMOGLOBIN 9.9 g/dL (13.3-17.7); LYMPHOCYTES # (AUTO) 2.6 10^3/uL (1.0-4.0); LYMPHOCYTES % (AUTO) 20 % (12-44); MEAN CORPUSCULAR HEMOGLOBIN 28 pg (25-34); MEAN CORPUSCULAR HGB CONC 30 g/dL (32-36); MEAN CORPUSCULAR VOLUME 92 fL (80-99); MEAN PLATELET VOLUME 9.5 fL (9.0-12.2); MONOCYTES % (AUTO) 8 % (0-12); NEUTROPHILS # (AUTO) 8.7 10^3/uL (1.8-7.8); NEUTROPHILS % (AUTO) 67 % (42-75); PLATELET COUNT 280 10^3/uL (130-400); WHITE BLOOD COUNT 12.9 10^3/uL (4.3-11.0)
[2020-08-22 05:48] LABS: ALBUMIN 3.1 GM/DL (3.2-4.5); CHLORIDE 107 MMOL/L (98-107); POTASSIUM 3.9 MMOL/L (3.6-5.0); SODIUM 142 MMOL/L (135-145)
[2020-08-22 05:49] LABS: CALCIUM 8.4 MG/DL (8.5-10.1)
[2020-08-22 05:50] LABS: GLUCOSE 103 MG/DL (70-105); TOTAL PROTEIN 6.2 GM/DL (6.4-8.2)
[2020-08-22 05:52] LABS: BILIRUBIN,TOTAL 0.2 MG/DL (0.1-1.0); CARBON DIOXIDE 23 MMOL/L (21-32)
[2020-08-22 05:54] LABS: ALKALINE PHOSPHATASE 49 U/L (40-136); CREATININE SERUM 1.05 MG/DL (0.60-1.30); GFR ESTIMATED > 60
[2020-08-22 05:55] LABS: BUN/CREATININE RATIO 11
[2020-08-22 05:57] LABS: ALANINE AMINOTRANSFERASE 10 U/L (0-55)
[2020-08-22 05:58] VITALS: BP 128/68
[2020-08-22] MEDS: inSUlin ASPART (NovoLOG) 1 UNIT/0.01 ML (CHARGE PER UNIT) SC SCH ×2 (06:00→11:43)
[2020-08-22] MEDS: MULTIVIT W/MINERALS TAB (THERAGRAN M) PO SCH (07:38)
--- NOTE | 2020-08-22 09:07 | PM&R Progress Note ---
Subjective HPI/CC On Admission Date Seen by Provider: Aug 22, 2020 Time Seen by Provider: 09:15 Subjective/Events-last exam 08/22/20: Heading to OR today Moving to 4th floor after surgery 08/21/20: Hgb 7.0 so will give one unit of blood Wound vac maintained Reluctant to work with PT Held Clonidine for BP so I changed that to prn Odor from wound will require Dr Barakat to take to OR and debride tomorrow 08/20/20: Holding Clonidine due to mild hypotension Left knee ulcer is healing well Wound vac maintained on coccyx Pain pill taken occasionally Good appetite 08/19/20: Patient doing well DC Dilaudid DC IVF Wound vac changed Up in chair and used sit to stand for 30 minutes 08/18/20: Patient doing well Wound vac maintained No pain reported Checked meds and labs Pain controlled IVF maintained 08/17/20: Patient doing well Slow recovery Dressing changes reveal good wound appearance s/p debridement Hgb 9.1 Cymbalta was changed to what his home dose is 08/16/20: Patient having anxiety about upcoming debridement Pain is an issue so increasing IV pain meds temporarily NPO until OR Bday is BM+ VCV may be the DC plan since his parents cannot take care of him 08/15/20: Patient doing well Up in wheelchair doing therapy outside room Dr Santillan will debride the wound tomorrow Home meds from mother will be sent to tech and restarted if indicated BP ok Tachycardia remains but stable 08/14/20:' Awaiting plan from Dr Santillan regarding the wound on coccyx Odor is present No pain reported by patient except neuropathy BM+ Retime Lovenox 08/13/20: Patient doing well Apathy Patient states he is homesick BM large today IVF maintained 08/12/20: Patient doing better Neuropathy of feet an issue so we discussed it Fentanyl and Oxycodone and Gabapentin BM+ 08/1008/11/20: Patient doing well Decubitus ulcer managed by Dr Santillan Continent [facility] lift Checked meds and labs Review of Systems General: Fatigue Focused Exam Lactate Level 08/21/20 08:00: Lactic Acid Level 1.14 08/22/20 07:37: Lactic Acid Level 0.70 Lactic Acid Level Objective Exam Vital Signs Vital Signs Date Time Temp Pulse Resp B/P (MAP) Pulse Ox O2 Delivery O2 Flow Rate FiO2 08/22/20 14:21 35.8 105 18 127/76 95 Room Air Capillary Refill : General Appearance: No Apparent Distress, WD/WN, Chronically ill, Obese HEENT: PERRL/EOMI, Normal ENT Inspection, Pharynx Normal Neck: Full Range of Motion, Normal Inspection, Non Tender, Supple Respiratory: Chest Non Tender, Lungs Clear, Normal Breath Sounds, No Accessory Muscle Use, No Respiratory Distress Cardiovascular: Regular Rate, Rhythm, No Edema, No Murmur, Normal Peripheral Pulses Gastrointestinal: Normal Bowel Sounds, No Organomegaly, No Pulsatile Mass, Non Tender, Soft Back: Normal Inspection, No CVA Tenderness, No Vertebral Tenderness Extremity: No Calf Tenderness, Other (Ulcer on knee dressed and wrapped. No leaking through. ) Neurologic/Psychiatric: Alert, Oriented x3, hand roller engraver II-XII Norm as Tested, Depressed Affect, Motor Weakness (generalized) Skin: Normal Color, Warm/Dry, Other (Decubitus ulcer on sacreal area still odorous, Dressing in place with no leaking through. ) Lymphatic: No Adenopathy Results/Procedures Lab Patient resulted labs reviewed. FIM Transfers Therapy Code Descriptions/Definitions Functional [place] Measure: 0=Not Assessed/NA 4=Minimal Assistance 1=Total Assistance 5=Supervision or Setup 2=Maximal Assistance 6=Modified [place] 3=Moderate Assistance 7=Complete IndependenceSCALE: Activities may be completed with or without assistive devices. 5-Qhndippdhs-qvxozqy completes the activity by him/herself with no assistance from a helper. 5-Set-up or Clean-up Assistance-helper sets up or cleans up; patient completes activity. Webb assists only prior to or following the activity. 4-Supervision or Touching Assistance-helper provides verbal cues and/or touching/steadying and/or contact guard assistance as patient completes activity. Assistance may be provided throughout the activity or intermittently. 3-Partial/Moderate Assistance-helper does LESS THAN HALF the effort. Webb lifts, holds or supports trunk or limbs, but provides less than half the effort. 2-Substantial/Maximal Assistance-helper does MORE THAN HALF the effort. Webb lifts or holds trunk or limbs and provides more than half the effort. 0-Xwewsimhg-zfobar does ALL the effort. Patient does none of the effort to complete the activity. Or, the assistance of 2 or more helpers is required for the patient to complete the activity. If activity was not attempted, code reason: 7-Patient Refused. 9-Not Applicable-not attempted and the patient did not perform the activity before the current illness, exacerbation or injury. 10-Not Attempted due to Environmental Limitations-(lack of equipment, weather restraints, etc.). 88-Not Attempted due to Medical Conditions or Safety Concerns. Roll Left to Right (QC): 5 Sit to Lying (QC): 3 Sit to Stand (QC): 1 Chair/Xhv-ml-Vjdls Xfer(QC): 1 Car Transfer (QC): 1 Gait Training Does the Patient Walk?: No and Walking Goal NOT indicated Walk 10 feet (QC): 88 Walk 50 ft with 2 Turns(QC): 88 Walk 150 ft (QC): 88 Walking 10ft/uneven surface-QC: 88 Wheelchair Training Does the Pt Use a Wheelchair?: Yes Wheel 50 ft with 2 turns (QC): 2 Wheel 150 ft (QC): 2 Type of Wheelchair: Manual Stair Training 1 Step (curb) (QC): 88 4 Steps (QC): 88 12 Steps (QC): 88 Balance Picking up an Object (QC): 88 ADL-Treatment Eating (QC): 3 (Min assist for stabilization of bowl. Set up for whole meal tray. OT has to place spoon with built up handle in right hand each time, as well as Abraham cup and banana.) Oral Hygiene (QC): 3 (Min assist to brush teeth sitting on side of bed. Pt. uses built up foam handle on toothbrush.) Shower/Bathe Self (QC): 2 (OT washes pt. hair with shampoo cap while pt. up in wheelchair. When pt. is back in bed, OT assists at bed level with sponge bath. Pt. is able to wash face and upper chest when washcloth is placed in right hand. Otherwise, OT washed all parts. Pt. declines for his feet to be washed this date.) Upper Body Dressing (QC): 7 Lower Body Dressing (QC): 1 (based on current abilities, will require Ax2 for donning/ doffing undergarments/ pants.) On/Off Footwear (QC): 1 Toileting Hygiene (QC): 7 Assessment/Plan Assessment and Plan Assess & Plan/Chief Complaint Assessment:: Myopathy COVID-19 PNA 06/03/20 Hypoxia Morbid obesity HTN HLP Developmental delay/autism Decubitus ulcers coccyx and left knee s/p debridement 08/16/20 Dr Santillan Tachycardia consulted Dr Busch dx hypovolemia so started IVF Plan: Wound care IRF protocol Home meds Pain meds 08/11/20: Monitor closely Decubitus ulcer management 08/12/20: Monitor closely IVF NS Monitor tachycardia Supportive care 08/13/20: IVF Monitor closely 08/14/20: Await wound care plan Monitor closely Continue IVF 08/15/20: Debridement tomorrow Check labs in morning Home meds 08/16/20: Monitor pain Debridement today IVF 08/17/20: Monitor pain Dressing changes Start weaning down off pain meds 08/18/20: Wound vac Maintained pain meds IVF Dr Santillan 08/19/20: Monitor pain DC Dilaudid DC IVF 08/20/20: Monitor pain Check labs in am 08/21/20: Move to 4th floor tomorrow in prep for OR on wound 08/22/20: Move to 4th after surgery (1) Myopathy (2) Pneumonia due to 2019 novel coronavirus Status: Acute (3) Morbid obesity Status: Chronic (4) Hypoxia Status: Acute (5) T2DM (type 2 diabetes mellitus) Status: Acute HEMANTH DODD DO Aug 22, 2020 09:07
--- NOTE | 2020-08-22 09:07 | Discharge Summary ---
Diagnosis/Chief Complaint Date of Admission Aug 10, 2020 at 11:20 Date of Discharge Discharge Diagnosis Assessment:: Myopathy COVID-19 PNA 06/03/20 Hypoxia Morbid obesity HTN HLP Developmental delay/autism Decubitus ulcers coccyx and left knee s/p debridement 08/16/20 Dr Santillan Tachycardia consulted Dr Jo-Ann de la rosa hypovolemia so started IVF Plan: Wound care IRF protocol Home meds Pain meds 08/11/20: Monitor closely Decubitus ulcer management 08/12/20: Monitor closely IVF NS Monitor tachycardia Supportive care 08/13/20: IVF Monitor closely 08/14/20: Await wound care plan Monitor closely Continue IVF 08/15/20: Debridement tomorrow Check labs in morning Home meds 08/16/20: Monitor pain Debridement today IVF 08/17/20: Monitor pain Dressing changes Start weaning down off pain meds 08/18/20: Wound vac Maintained pain meds IVF Dr Santillan 08/19/20: Monitor pain DC Dilaudid DC IVF 08/20/20: Monitor pain Check labs in am 08/21/20: Move to 4th floor tomorrow in prep for OR on wound (1) Myopathy (2) Pneumonia due to 2019 novel coronavirus Status: Acute (3) Morbid obesity Status: Chronic (4) Hypoxia Status: Acute (5) T2DM (type 2 diabetes mellitus) Status: Acute Discharge Summary Discharge Physical Examination Allergies: Coded Allergies: No Known Drug Allergies (Unverified , 06/08/20) Vitals & I&Os Vital Signs Date Time Temp Pulse Resp B/P (MAP) Pulse Ox O2 Delivery O2 Flow Rate FiO2 08/22/20 14:21 35.8 105 18 127/76 95 Room Air General Appearance: Alert, Oriented X3, Cooperative Respiratory: Clear to Auscultation Cardiovascular: Regular Rate Hospital Course Was the Problem List Reviewed?: Yes Hospital course: Pt had a lengthy hospital course for 13 days after returning from [facility] after Covid syndrome and respiratory failure. Pt had a significant Coccyx wound that was managed by Dr. Santillan with a wound vac. He did have debridement on Friday but pt ultimately had worsening odor from the wound and it was so significant that he required Dr. Barakat to deride the area and transfer up to 4th floor for med surg and Pt will have aggressive treatment and ultimately and likely DC to [facility] for jail care. Labs (last 24 hrs) Laboratory Tests 08/10/20 12:30: White Blood Count 15.5H, Red Blood Count 4.22L, Hemoglobin 11.0L, Hematocrit 34L , Mean Corpuscular Volume 81, Mean Corpuscular Hemoglobin 26, Mean Corpuscular Hemoglobin Concent 32, Red Cell Distribution Width 14.6H, Platelet Count 498H, Mean Platelet Volume 8.6L, Immature Granulocyte % (Auto) 1, Neutrophils (%) (Auto) 70, Lymphocytes (%) (Auto) 21, Monocytes (%) (Auto) 8, Eosinophils (%) (Auto) 1, Basophils (%) (Auto) 0, Neutrophils # (Auto) 10.8H, Lymphocytes # (Auto) 3.2, Monocytes # (Auto) 1.3H, Eosinophils # (Auto) 0.2, Basophils # (Aut o) 0.1, Immature Granulocyte # (Auto) 0.1, Neutrophils % (Manual) 66, Lymphocytes % (Manual) 25, Monocytes % (Manual) 6, Eosinophils % (Manual) 3, Band Neutrophils , Blood Morphology Comment NORMAL, Sodium Level 135, Potassium Level 4.9, Chloride Level 101, Carbon Dioxide Level 21, Anion Gap 13, Blood Urea Nitrogen 25H, Creatinine 0.64, Estimat Glomerular Filtration Rate > 60, BUN/Creatinine Ratio 39, Glucose Level 131H, Lactic Acid Level 1.57, Calcium Level 9.5, Corrected Calcium 9.7, Total Bilirubin 0.4, Aspartate Amino Transf (AST/SGOT) 35H, Alanine Aminotransferase (ALT/SGPT) 30, Alkaline Phosphatase 121, Total Protein 7.1, Albumin 3.7, Procalcitonin 0.05 08/10/20 15:41: Glucometer 139H 08/10/20 20:01: Glucometer 136H 08/11/20 05:00: White Blood Count 12.0H, Red Blood Count 4.14L, Hemoglobin 11.0L, Hematocrit 34L , Mean Corpuscular Volume 83, Mean Corpuscular Hemoglobin 27, Mean Corpuscular Hemoglobin Concent 32, Red Cell Distribution Width 14.6H, Platelet Count 435H, Mean Platelet Volume 8.6L, Immature Granulocyte % (Auto) 0, Neutrophils (%) (Auto) 57, Lymphocytes (%) (Auto) 32, Monocytes (%) (Auto) 9, Eosinophils (%) (Auto) 2, Basophils (%) (Auto) 0, Neutrophils # (Auto) 6.8, Lymphocytes # (Auto) 3.8, Monocytes # (Auto) 1.1H, Eosinophils # (Auto) 0.2, Basophils # (Auto) 0.1, Immature Granulocyte # (Auto) 0.0, Sodium Level 134L, Potassium Level 3.8, Chloride Level 100, Carbon Dioxide Level 21, Anion Gap 13, Blood Urea Nitrogen 26H, Creatinine 0.67, Estimat Glomerular Filtration Rate > 60, BUN/Creatinine Ratio 39, Glucose Level 124H, Calcium Level 9.7, Corrected Calcium 9.9, Total Bilirubin 0.6, Aspartate Amino Transf (AST/SGOT) 19, Alanine Aminotransferase (ALT/SGPT) 27, Alkaline Phosphatase 117, Total Protein 6.6, Albumin 3.7 08/11/20 11:17: Glucometer 129H 08/11/20 16:18: Glucometer 144H 08/11/20 20:28: Glucometer 158H 08/11/20 22:50: Urine Color YELLOW, Urine Clarity SL CLOUDY, Urine pH 5.0, Urine Specific Dolliver 1.025H, Urine Protein NEGATIVE, Urine Glucose (UA) NEGATIVE, Urine Ketones NEGATIVE, Urine Nitrite NEGATIVE, Urine Bilirubin NEGATIVE, Urine Urobi linogen 0.2, Urine Leukocyte Esterase NEGATIVE, Urine RBC (Auto) NEGATIVE, Urine RBC NONE, Urine WBC 2-5, Urine Squamous Epithelial Cells 0-2, Urine Crystals PRESENTH, Urine Calcium Oxalate Crystals RAREH, Urine Bacteria TRACE, Urine Casts PRESENT, Urine Hyaline Casts 2-5H, Urine Mucus SMALLH, Urine Culture Indicated NO 08/12/20 05:15: White Blood Count 9.2, Red Blood Count 3.95L, Hemoglobin 10.3L, Hematocrit 33L, Mean Corpuscular Volume 82, Mean Corpuscular Hemoglobin 26, Mean Corpuscular Hemoglobin Concent 32, Red Cell Distribution Width 14.3, Platelet Count 420H, Mean Platelet Volume 8.5L, Sodium Level 135, Potassium Level 3.9, Chloride Level 100, Carbon Dioxide Level 22, Anion Gap 13, Blood Urea Nitrogen 26H, Creatinine 0.61, Estimat Glomerular Filtration Rate > 60, BUN/Creatinine Ratio 43, Glucose Level 121H, Calcium Level 9.7, Corrected Calcium 10.1, Total Bilirubin 0.5, Aspartate Amino Transf (AST/SGOT) 18, Alanine Aminotransferase (ALT/SGPT) 27, Alkaline Phosphatase 116, Total Protein 6.5, Albumin 3.5 08/12/20 11:58: Glucometer 128H 08/12/20 16:55: Glucometer 116H 08/12/20 21:19: Glucometer 148H 08/13/20 05:41: Glucometer 133H 08/13/20 11:22: Glucometer 126H 08/13/20 15:13: Glucometer 131H 08/13/20 20:02: Glucometer 154H 08/14/20 04:55: White Blood Count 9.0, Red Blood Count 3.73L, Hemoglobin 9.6L, Hematocrit 31L, Mean Corpuscular Volume 82, Mean Corpuscular Hemoglobin 26, Mean Corpuscular Hemoglobin Concent 32, Red Cell Distribution Width 14.3, Platelet Count 419H, Mean Platelet Volume 8.5L, Immature Granulocyte % (Auto) 0, Neutrophils (%) (Auto) 53, Lymphocytes (%) (Auto) 34, Monocytes (%) (Auto) 10, Eosinophils (%) (Auto) 2, Basophils (%) (Auto) 1, Neutrophils # (Auto) 4.8, Lymphocytes # (Auto) 3.1, Monocytes # (Auto) 0.9, Eosinophils # (Auto) 0.2, Basophils # (Auto) 0.1, Immature Granulocyte # (Auto) 0.0, Sodium Level 138, Potassium Level 4.1, Chloride Level 104, Carbon Dioxide Level 23, Anion Gap 11, Blood Urea Nitrogen 14, Creatinine 0.58L, Estimat Glomerular Filtration Rate > 60, BUN/Creatinine Ratio 24, Glucose Level 119H, Calcium Level 9.2, Corrected Calcium 9.8, Total Bilirubin 0.4, Aspartate Amino Transf (AST/SGOT) 20, Alanine Aminotransferase (ALT/SGPT) 27, Alkaline Phosphatase 124, Total Protein 6.3L, Albumin 3.3 08/14/20 10:55: Glucometer 131H 08/14/20 15:26: Glucometer 121H 08/14/20 20:25: Glucometer 125H 08/15/20 06:33: Glucometer 116H 08/15/20 10:57: Glucometer 94 08/15/20 15:17: Glucometer 137H 08/15/20 20:09: Glucometer 125H 08/16/20 05:50: White Blood Count 10.0, Red Blood Count 3.72L, Hemoglobin 9.9L, Hematocrit 30L, Mean Corpuscular Volume 81, Mean Corpuscular Hemoglobin 27, Mean Corpuscular Hemoglobin Concent 33, Red Cell Distribution Width 13.9, Platelet Count 438H, Mean Platelet Volume 8.3L, Immature Granulocyte % (Auto) 0, Neutrophils (%) (Auto) 62, Lymphocytes (%) (Auto) 27, Monocytes (%) (Auto) 9, Eosinophils (%) (Auto) 1, Basophils (%) (Auto) 1, Neutrophils # (Auto) 6.1, Lymphocytes # (Auto) 2.7, Monocytes # (Auto) 0.9, Eosinophils # (Auto) 0.1, Basophils # (Auto) 0.1, Immature Granulocyte # (Auto) 0.0, Sodium Level 137, Potassium Level 4.3, Chl oride Level 103, Carbon Dioxide Level 23, Anion Gap 11, Blood Urea Nitrogen 9, Creatinine 0.55L, Estimat Glomerular Filtration Rate > 60, BUN/Creatinine Ratio 16, Glucose Level 121H, Calcium Level 9.4, Corrected Calcium 10.0, Total Bilirubin 0.5, Aspartate Amino Transf (AST/SGOT) 17, Alanine Aminotransferase (ALT/SGPT) 26, Alkaline Phosphatase 115, Total Protein 6.3L, Albumin 3.2 08/16/20 12:07: Glucometer 106 08/16/20 16:49: Glucometer 101 08/16/20 20:42: Glucometer 130H 08/17/20 05:59: White Blood Count 10.7, Red Blood Count 3.51L, Hemoglobin 9.1L, Hematocrit 29L, Mean Corpuscular Volume 81, Mean Corpuscular Hemoglobin 26, Mean Corpuscular Hemoglobin Concent 32, Red Cell Distribution Width 14.0, Platelet Count 442H, Mean Platelet Volume 8.4L, Immature Granulocyte % (Auto) 1, Neutrophils (%) (Auto) 62, Lymphocytes (%) (Auto) 26, Monocytes (%) (Auto) 11, Eosinophils (%) (Auto) 1, Basophils (%) (Auto) 0, Neutrophils # (Auto) 6.7, Lymphocytes # (Auto) 2.8, Monocytes # (Auto) 1.1H, Eosinophils # (Auto) 0.1, Basophils # (Auto) 0.0, Immature Granulocyte # (Auto) 0.1, Sodium Level 137, Potassium Level 4.2, Chloride Level 103, Carbon Dioxide Level 23, Anion Gap 11, Blood Urea Nitrogen 7, Creatinine 0.59L, Estimat Glomerular Filtration Rate > 60, BUN/Creatinine Ratio 12, Glucose Level 132H, Calcium Level 9.2, Corrected Calcium 9.9, Total Bilirubin 0.4, Aspartate Amino Transf (AST/SGOT) 17, Alanine Aminotransferase (ALT/SGPT) 25, Alkaline Phosphatase 107, Total Protein 6.2L, Albumin 3.1L 08/17/20 10:50: Glucometer 122H 08/17/20 16:33: Glucometer 114H 08/17/20 20:07: Glucometer 138H 08/18/20 06:08: Glucometer 116H 08/18/20 10:46: Glucometer 128H 08/18/20 15:34: Glucometer 124H 08/18/20 21:12: Glucometer 126H 08/19/20 05:38: Glucometer 122H 08/19/20 10:48: Glucometer 121H 08/19/20 16:40: Glucometer 125H 08/19/20 21:20: Glucometer 123H 08/20/20 05:53: Glucometer 128H 08/20/20 11:02: Glucometer 110 08/20/20 16:52: Glucometer 117H 08/20/20 20:40: Glucometer 137H 08/21/20 05:51: Glucometer 110 08/21/20 06:39: White Blood Count 13.0H, Red Blood Count 2.67L, Hemoglobin 7.0L, Hematocrit 22L, Mean Corpuscular Volume 82, Mean Corpuscular Hemoglobin 26, Mean Corpuscular Hemoglobin Concent 32, Red Cell Distribution Width 14.3, Platelet Count 662H, Mean Platelet Volume 8.6L, Immature Granulocyte % (Auto) 1, Neutrophils (%) (Auto) 57, Lymphocytes (%) (Auto) 30, Monocytes (%) (Auto) 10, Eosinophils (%) (Auto) 2, Basophils (%) (Auto) 1, Neutrophils # (Auto) 7.4, Lymphocytes # (Auto) 4.0, Monocytes # (Auto) 1.3H, Eosinophils # (Auto) 0.2, Basophils # (Auto) 0.1, Immature Granulocyte # (Auto) 0.1, Sodium Level 138, Potassium Level 4.4, Chloride Level 102, Carbon Dioxide Level 24, Anion Gap 12, Blood Urea Nitrogen 8, Creatinine 0.60, Estimat Glomerular Filtration Rate > 60, BUN/Creatinine Ratio 13, Glucose Level 118H, Calcium Level 9.6, Corrected Calcium 9.9, Iron Level 21L, Total Bilirubin 0.3, Aspartate Amino Transf (AST/SGOT) 11, Alanine Aminotransferase (ALT/SGPT) 15, Alkaline Phosphatase 105, Total Protein 7.2, Albumin 3.6, Procalcitonin 0.03 08/21/20 08:00: Lactic Acid Level 1.14 08/21/20 10:55: Glucometer 124H 08/21/20 16:31: Glucometer 116H 08/21/20 20:56: Glucometer 140H 08/22/20 05:30: White Blood Count 12.9H, Red Blood Count 3.55L, Hemoglobin 9.9#L, Hematocrit 33L , Mean Corpuscular Volume 92, Mean Corpuscular Hemoglobin 28, Mean Corpuscular Hemoglobin Concent 30L, Red Cell Distribution Width 15.6H, Platelet Count 280, Mean Platelet Volume 9.5, Immature Granulocyte % (Auto) 1, Neutrophils (%) (Auto) 67, Lymphocytes (%) (Auto) 20, Monocytes (%) (Auto) 8, Eosinophils (%) (Auto) 3, Basophils (%) (Auto) 1, Neutrophils # (Auto) 8.7H, Lymphocytes # (Auto) 2.6, Monocytes # (Auto) 1.0, Eosinophils # (Auto) 0.4H, Basophils # ( Auto) 0.1, Immature Granulocyte # (Auto) 0.2H, Sodium Level 142, Potassium Level 3.9, Chloride Level 107, Carbon Dioxide Level 23, Anion Gap 12, Blood Urea Nitrogen 12, Creatinine 1.05, Estimat Glomerular Filtration Rate > 60, BUN/Crea tinine Ratio 11, Glucose Level 103, Calcium Level 8.4L, Corrected Calcium 9.1, Total Bilirubin 0.2, Aspartate Amino Transf (AST/SGOT) 21, Alanine Aminotransferase (ALT/SGPT) 10, Alkaline Phosphatase 49, Total Protein 6.2L, Albumin 3.1L, Procalcitonin 0.08 08/22/20 07:37: Lactic Acid Level 0.70 08/22/20 11:38: Glucometer 115H Pending Labs Laboratory Tests 08/10/20 12:30: White Blood Count 15.5, Red Blood Count 4.22, Hemoglobin 11.0, Hematocrit 34, Mean Corpuscular Volume 81, Mean Corpuscular Hemoglobin 26, Mean Corpuscular Hemoglobin Concent 32, Red Cell Distribution Width 14.6, Platelet Count 498, Mean Platelet Volume 8.6, Immature Granulocyte % (Auto) 1, Neutrophils (%) (Auto) 70, Lymphocytes (%) (Auto) 21, Monocytes (%) (Auto) 8, Eosinophils (%) (Auto) 1, Basophils (%) (Auto) 0, Neutrophils # (Auto) 10.8, Lymphocytes # (Auto) 3.2, Monocytes # (Auto) 1.3, Eosinophils # (Auto) 0.2, Basophils # (Auto) 0.1, Immature Granulocyte # (Auto) 0.1, Neutrophils % (Manual) 66, Lymphocytes % (Manual) 25, Monocytes % (Manual) 6, Eosinophils % (Manual) 3, Band Neutrophils , Blood Morphology Comment NORMAL, Sodium Level 135, Potassium Level 4.9, Chloride Level 101, Carbon Dioxide Level 21, Anion Gap 13, Blood Urea Nitrogen 25, Creatinine 0.64, Estimat Glomerular Filtration Rate > 60, BUN/Creatinine Ratio 39, Glucose Level 131, Lactic Acid Level 1.57, Calcium Level 9.5, Corrected Calcium 9.7, Total Bilirubin 0.4, Aspartate Amino Transf (AST/SGOT) 35, Alanine Aminotransferase (ALT/SGPT) 30, Alkaline Phosphatase 121, Total Protein 7.1, Albumin 3.7, Procalcitonin 0.05 08/10/20 15:41: Glucometer 139 08/10/20 20:01: Glucometer 136 08/11/20 05:00: White Blood Count 12.0, Red Blood Count 4.14, Hemoglobin 11.0, Hematocrit 34, Mean Corpuscular Volume 83, Mean Corpuscular Hemoglobin 27, Mean Corpuscular Hemoglobin Concent 32, Red Cell Distribution Width 14.6, Platelet Count 435, Mean Platelet Volume 8.6, Immature Granulocyte % (Auto) 0, Neutrophils (%) (Auto) 57, Lymphocytes (%) (Auto) 32, Monocytes (%) (Auto) 9, Eosinophils (%) (Auto) 2, Basophils (%) (Auto) 0, Neutrophils # (Auto) 6.8, Lymphocytes # (Auto) 3.8, Monocytes # (Auto) 1.1, Eosinophils # (Auto) 0.2, Basophils # (Auto) 0.1, Immature Granulocyte # (Auto) 0.0, Sodium Level 134, Potassium Level 3.8, Chloride Level 100, Carbon Dioxide Level 21, Anion Gap 13, Blood Urea Nitrogen 2 6, Creatinine 0.67, Estimat Glomerular Filtration Rate > 60, BUN/Creatinine Ratio 39, Glucose Level 124, Calcium Level 9.7, Corrected Calcium 9.9, Total Bilirubin 0.6, Aspartate Amino Transf (AST/SGOT) 19, Alanine Aminotransferase (ALT/SGPT) 27, Alkaline Phosphatase 117, Total Protein 6.6, Albumin 3.7 08/11/20 11:17: Glucometer 129 08/11/20 16:18: Glucometer 144 08/11/20 20:28: Glucometer 158 08/11/20 22:50: Urine Color YELLOW, Urine Clarity SL CLOUDY, Urine pH 5.0, Urine Specific Dolliver 1.025, Urine Protein NEGATIVE, Urine Glucose (UA) NEGATIVE, Urine Ketones NEGATIVE, Urine Nitrite NEGATIVE, Urine Bilirubin NEGATIVE, Urine Urobilinogen 0.2, Urine Leukocyte Esterase NEGATIVE, Urine RBC (Auto) NEGATIVE, Urine RBC NONE, Urine WBC 2-5, Urine Squamous Epithelial Cells 0-2, Urine Crystals PRESENT, Urine Calcium Oxalate Crystals RARE, Urine Bacteria TRACE, Urine Casts PRESENT, Urine Hyaline Casts 2-5, Urine Mucus SMALL, Urine Culture Indicated NO 08/12/20 05:15: White Blood Count 9.2, Red Blood Count 3.95, Hemoglobin 10.3, Hematocrit 33, Mean Corpuscular Volume 82, Mean Corpuscular Hemoglobin 26, Mean Corpuscular Hemoglobin Concent 32, Red Cell Distribution Width 14.3, Platelet Count 420, Mean Platelet Volume 8.5, Sodium Level 135, Potassium Level 3.9, Chloride Level 100, Carbon Dioxide Level 22, Anion Gap 13, Blood Urea Nitrogen 26, Creatinine 0.61, Estimat Glomerular Filtration Rate > 60, BUN/Creatinine Ratio 43, Glucose Level 121, Calcium Level 9.7, Corrected Calcium 10.1, Total Bilirubin 0.5, Aspartate Amino Transf (AST/SGOT) 18, Alanine Aminotransferase (ALT/SGPT) 27, Alkaline Phosphatase 116, Total Protein 6.5, Albumin 3.5 08/12/20 11:58: Glucometer 128 08/12/20 16:55: Glucometer 116 08/12/20 21:19: Glucometer 148 08/13/20 05:41: Glucometer 133 08/13/20 11:22: Glucometer 126 08/13/20 15:13: Glucometer 131 08/13/20 20:02: Glucometer 154 08/14/20 04:55: White Blood Count 9.0, Red Blood Count 3.73, Hemoglobin 9.6, Hematocrit 31, Mean Corpuscular Volume 82, Mean Corpuscular Hemoglobin 26, Mean Corpuscular He moglobin Concent 32, Red Cell Distribution Width 14.3, Platelet Count 419, Mean Platelet Volume 8.5, Immature Granulocyte % (Auto) 0, Neutrophils (%) (Auto) 53, Lymphocytes (%) (Auto) 34, Monocytes (%) (Auto) 10, Eosinophils (%) (Auto) 2, Basophils (%) (Auto) 1, Neutrophils # (Auto) 4.8, Lymphocytes # (Auto) 3.1, Monocytes # (Auto) 0.9, Eosinophils # (Auto) 0.2, Basophils # (Auto) 0.1, Immature Granulocyte # (Auto) 0.0, Sodium Level 138, Potassium Level 4.1, Chloride Level 104, Carbon Dioxide Level 23, Anion Gap 11, Blood Urea Nitrogen 14, Creatinine 0.58, Estimat Glomerular Filtration Rate > 60, BUN/Creatinine Ratio 24, Glucose Level 119, Calcium Level 9.2, Corrected Calcium 9.8, Total Bilirubin 0.4, Aspartate Amino Transf (AST/SGOT) 20, Alanine Aminotransferase (ALT/SGPT) 27, Alkaline Phosphatase 124, Total Protein 6.3, Albumin 3.3 08/14/20 10:55: Glucometer 131 08/14/20 15:26: Glucometer 121 08/14/20 20:25: Glucometer 125 08/15/20 06:33: Glucometer 116 08/15/20 10:57: Glucometer 94 08/15/20 15:17: Glucometer 137 08/15/20 20:09: Glucometer 125 08/16/20 05:50: White Blood Count 10.0, Red Blood Count 3.72, Hemoglobin 9.9, Hematocrit 30, Mean Corpuscular Volume 81, Mean Corpuscular Hemoglobin 27, Mean Corpuscular Hemoglobin Concent 33, Red Cell Distribution Width 13.9, Platelet Count 438, Mean Platelet Volume 8.3, Immature Granulocyte % (Auto) 0, Neutrophils (%) (Auto) 62, Lymphocytes (%) (Auto) 27, Monocytes (%) (Auto) 9, Eosinophils (%) (Auto) 1, Basophils (%) (Auto) 1, Neutrophils # (Auto) 6.1, Lymphocytes # (Auto) 2.7, Monocytes # (Auto) 0.9, Eosinophils # (Auto) 0.1, Basophils # (Auto) 0.1, Immature Granulocyte # (Auto) 0.0, Sodium Level 137, Potassium Level 4.3, Chloride Level 103, Carbon Dioxide Level 23, Anion Gap 11, Blood Urea Nitrogen 9, Creatinine 0.55, Estimat Glomerular Filtration Rate > 60, BUN/Creatinine Ratio 16, Glucose Level 121, Calcium Level 9.4, Corrected Calcium 10.0, Total Bilirubin 0.5, Aspartate Amino Transf (AST/SGOT) 17, Alanine Aminotransferase (ALT/SGPT) 26, Alkaline Phosphatase 115, Total Protein 6.3, Albumin 3.2 08/16/20 12:07: Glucometer 106 08/16/20 16:49: Glucometer 101 08/16/20 20:42: Glucometer 130 08/17/20 05:59: White Blood Count 10.7, Red Blood Count 3.51, Hemoglobin 9.1, Hematocrit 29, Mean Corpuscular Volume 81, Mean Corpuscular Hemoglobin 26, Mean Corpuscular Hemoglobin Concent 32, Red Cell Distribution Width 14.0, Platelet Count 442, Mean Platelet Volume 8.4, Immature Granulocyte % (Auto) 1, Neutrophils (%) (Auto) 62, Lymphocytes (%) (Auto) 26, Monocytes (%) (Auto) 11, Eosinophils (%) ( Auto) 1, Basophils (%) (Auto) 0, Neutrophils # (Auto) 6.7, Lymphocytes # (Auto) 2.8, Monocytes # (Auto) 1.1, Eosinophils # (Auto) 0.1, Basophils # (Auto) 0.0, Immature Granulocyte # (Auto) 0.1, Sodium Level 137, Potassium Level 4.2, Chloride Level 103, Carbon Dioxide Level 23, Anion Gap 11, Blood Urea Nitrogen 7, Creatinine 0.59, Estimat Glomerular Filtration Rate > 60, BUN/Creatinine Ratio 12, Glucose Level 132, Calcium Level 9.2, Corrected Calcium 9.9, Total Bilirubin 0.4, Aspartate Amino Transf (AST/SGOT) 17, Alanine Aminotransferase (ALT/SGPT) 25, Alkaline Phosphatase 107, Total Protein 6.2, Albumin 3.1 08/17/20 10:50: Glucometer 122 08/17/20 16:33: Glucometer 114 08/17/20 20:07: Glucometer 138 08/18/20 06:08: Glucometer 116 08/18/20 10:46: Glucometer 128 08/18/20 15:34: Glucometer 124 08/18/20 21:12: Glucometer 126 08/19/20 05:38: Glucometer 122 08/19/20 10:48: Glucometer 121 08/19/20 16:40: Glucometer 125 08/19/20 21:20: Glucometer 123 08/20/20 05:53: Glucometer 128 08/20/20 11:02: Glucometer 110 08/20/20 16:52: Glucometer 117 08/20/20 20:40: Glucometer 137 08/21/20 05:51: Glucometer 110 08/21/20 06:39: White Blood Count 13.0, Red Blood Count 2.67, Hemoglobin 7.0, Hematocrit 22, Mean Corpuscular Volume 82, Mean Corpuscular Hemoglobin 26, Mean Corpuscular Hemoglobin Concent 32, Red Cell Distribution Width 14.3, Platelet Count 662, Mean Platelet Volume 8.6, Immature Granulocyte % (Auto) 1, Neutrophils (%) (Auto) 57, Lymphocytes (%) (Auto) 30, Monocytes (%) (Auto) 10, Eosinophils (%) (Auto) 2, Basophils (%) (Auto) 1, Neutrophils # (Auto) 7.4, Lymphocytes # (Auto) 4.0, Monocytes # (Auto) 1.3, Eosinophils # (Auto) 0.2, Basophils # (Auto) 0.1, Immature Granulocyte # (Auto) 0.1, Sodium Level 138, Potassium Level 4.4, Chloride Level 102, Carbon Dioxide Level 24, Anion Gap 12, Blood Urea Nitrogen 8, Creatinine 0.60, Estimat Glomerular Filtration Rate > 60, BUN/Creatinine Ratio 13, Glucose Level 118, Calcium Level 9.6, Corrected Calcium 9.9, Iron Level 21, Total Bilirubin 0.3, Aspartate Amino Transf (AST/SGOT) 11, Alanine Aminotransferase (ALT/SGPT) 15, Alkaline Phosphatase 105, Total Protein 7.2, Albumin 3.6, Procalcitonin 0.03 08/21/20 08:00: Lactic Acid Level 1.14 08/21/20 10:55: Glucometer 124 08/21/20 16:31: Glucometer 116 08/21/20 20:56: Glucometer 140 08/22/20 05:30: White Blood Count 12.9, Red Blood Count 3.55, Hemoglobin 9.9, Hematocrit 33, Mean Corpuscular Volume 92, Mean Corpuscular Hemoglobin 28, Mean Corpuscular Hemoglobin Concent 30, Red Cell Distribution Width 15.6, Platelet Count 280, Mean Platelet Volume 9.5, Immature Granulocyte % (Auto) 1, Neutrophils (%) (Auto) 67, Lymphocytes (%) (Auto) 20, Monocytes (%) (Auto) 8, Eosinophils (%) (Auto) 3, Basophils (%) (Auto) 1, Neutrophils # (Auto) 8.7, Lymphocytes # (Auto) 2.6, Monocytes # (Auto) 1.0, Eosinophils # (Auto) 0.4, Basophils # (Auto) 0.1, Immature Granulocyte # (Auto) 0.2, Sodium Level 142, Potassium Level 3.9, Chloride Level 107, Carbon Dioxide Level 23, Anion Gap 12, Blood Urea Nitrogen 12, Creatinine 1.05, Estimat Glomerular Filtration Rate > 60, BUN/Creatinine Ratio 11, Glucose Level 103, Calcium Level 8.4, Corrected Calcium 9.1, Total Bilirubin 0.2, Aspartate Amino Transf (AST/SGOT) 21, Alanine Aminotransferase (ALT/SGPT) 10, Alkaline Phosphatase 49, Total Protein 6.2, Albumin 3.1, Procalcitonin 0.08 08/22/20 07:37: Lactic Acid Level 0.70 08/22/20 11:38: Glucometer 115 Discharge Home Medications: Active Scripts Active Reported Ventolin Hfa (Albuterol Sulfate) 18 Gm Hfa.aer.ad 2 Puff INH Q6H PRN Invokamet Xr 50-1,000 mg Tab (Canagliflozin/Metformin HCl) 1 Each Tab.bp.24h 2 Each PO DAILY Rexulti (Brexpiprazole) 0.5 Mg Tablet 0.5 Mg PO DAILY Rosuvastatin Calcium 20 Mg Tablet 20 Mg PO DAILY Trulicity (Dulaglutide) 0.75 Mg/0.5 Ml Pen.injctr 0.75 Mg SQ FRI Pioglitazone HCl 30 Mg Tablet 30 Mg PO DAILY Cetirizine HCl 10 Mg Tablet 10 Mg PO DAILY Montelukast Sodium 10 Mg Tablet 10 Mg PO DAILY Gemfibrozil 600 Mg Tablet 600 Mg PO BID Hydrochlorothiazide 50 Mg Tablet 50 Mg PO DAILY Ibuprofen 200 Mg Capsule 400 Mg PO Q6H PRN Tylenol (Acetaminophen) 325 Mg Capsule 650 Mg PO Q6H PRN Thera-M Caplet (Multivit,Ther Iron,Ca,FA & Min) 1 Each Tablet 1 Each PO DAILY Metoprolol Tartrate 50 Mg Tablet 50 Mg PO BID Neurontin (Gabapentin) 300 Mg Capsule 300 Mg PO TID PRN Duloxetine HCl 60 Mg Capsule.dr 120 Mg PO DAILY TAKES 2 (60MG) CAPS Instructions to patient/family Please see electronic discharge instructions given to patient. Diagnosis/Problems Diagnosis/Problems (1) Myopathy (2) Pneumonia due to 2019 novel coronavirus Status: Acute (3) Morbid obesity Status: Chronic (4) Hypoxia Status: Acute (5) T2DM (type 2 diabetes mellitus) Status: Acute HEMANTH DODD DO Aug 22, 2020 09:07
[2020-08-22 09:30] VITALS: BP 127/76
[2020-08-22] MEDS: REXULTI 0.5 MG PO SCH (09:41)
[2020-08-22] MEDS: COLLAGENASE 30 GM (SANTYL) TUBE TP SCH (09:46)
[2020-08-22] MEDS: DICLOFENAC 1% GEL 100 GM (VOLTAREN) TUBE TOP SCH ×2 (09:47→13:33)
[2020-08-22] MEDS: MICONAZOLE 2% POWDER (DESENEX AF) 90 GM TOP SCH (09:48)
[2020-08-22] MEDS: LACTOBACILLUS ACIDOPHILUS (PROBIOTIC) CAPSULE PO SCH (09:55)
[2020-08-22] MEDS: PIOGLITAZONE 30MG (ACTOS) TAB PO SCH (09:55)
[2020-08-22] MEDS: meTOprolol TARTRATE 50 MG (LOPRESSOR) TAB PO SCH (09:56)
[2020-08-22] MEDS: DULoxetine 30 MG (CYMBALTA) CAP PO SCH (09:56)
[2020-08-22] MEDS: GABAPENTIN 300 MG (NEURONTIN) CAP PO SCH ×2 (09:56→13:33)
[2020-08-22] MEDS: GEMFIBROZIL 600 MG (LOPID) TAB PO SCH (09:56)
[2020-08-22] MEDS: DOCUSATE SODIUM 100 MG (COLACE) CAP PO SCH (09:56)
[2020-08-22] MEDS: ROSUVASTATIN 20 MG (CRESTOR) TABLET PO SCH (09:56)
[2020-08-22] MEDS: polyethylene glycoL POWDER 17 GM (MIRALAX) PACK PO SCH (09:56)
[2020-08-22] MEDS: LORATADINE (CLARITIN) 10 MG TAB PO SCH (09:56)
[2020-08-22] MEDS: SENNA W/DOCUSATE (SENOKOT S) TABLET PO SCH (09:57)
[2020-08-22] MEDS: ASCORBIC ACID (VIT C) 500 MG TABLET PO SCH (09:57)
[2020-08-22] MEDS: MONTELUKAST 10 MG (SINGULAIR) TAB PO SCH (09:57)
[2020-08-22] MEDS: SENNOSIDES 8.6 MG (SENOKOT) TAB PO SCH (09:57)
[2020-08-22] MEDS: VITAMIN D3 125 MCG (5,000 UNITS) CAPSULE PO SCH (09:57)
--- NOTE | 2020-08-22 11:02 | Therapy Team Discharge Summary ---
Therapy Discharge Summary Discharge Recommendations Date of Discharge 08/22/2020 Physical Therapy This patient admitted to this ARU post lengthy and complicated acute and LTAC hospital stays secondary to COVID 19. Prior to his dx of COVID, he was living alone and indep with mobility and self care. Upon admission to this unit, pt was dependent for all mobility (able to particiapate in rolling) and required a mechanical lift for transfers. Treatment has focused on strength, ROM, funcitonal mobility tasks, functional activity tolerance progression and desensitization techniquees. He was participating in skilled therapy and had progressed to use of a sit to stand lift for transfers but remained dependent for bed mobility and transfers, unable to attempt ambulation. He was limited by pain, hyper sensitivity, decreased strength and functional act tolerance. He did not meet goals. He is being transferred to acute for continued medical management; therefore will be discharged from this unit. DC PT. Occupational Therapy Decreased Activ Tolerance, Decreased UE Strength, Dependent Transfers, Impaired Bed Mobility, Impaired Funct Balance, Impaired I ADL's, Impaired Self-Care Ski lls, Restricted Funct UE ROM PT Farm Marketer Goals Care Home Goals PT Farm Marketer Goals Time Frame: Aug 31, 2020 Roll Left to Right (QC): 6 Sit to Lying (QC): 3 Lying-Sitting on Side/Bed(QC): 3 Sit to Stand (QC): 2 Chair/Ujk-wm-Kuxxy Xfer(QC): 2 Car Transfer (QC): 1 Does the Patient Walk: No and Walking Goal NOT indicated Walk 10 feet (QC): 88 Walk 10ft-Uneven Surface(QC): 88 Walk 50ft with 2 Turns (QC): 88 Walk 150 ft (QC): 88 Wheel 50 feet with 2 turns (QC: 3 1 Step (curb) (QC): 88 4 Steps (QC): 88 12 Steps (QC): 88 Picking up an Object (QC): 88 Goals unmet as patient discharged to acute due to change in medical status/nee ds. OT Farm Marketer Goals Care Home Goals Time Frame: Aug 31, 2020 Eating (QC): 6 Oral Hygiene (QC): 6 Shower/Bathe Self (QC): 4 Upper Body Dressing (QC): 6 Lower Body Dressing (QC): 4 On/Off Footwear (QC): 4 Toileting Hygiene (QC): 4 Toilet/Commode Transfer (QC): 2 Additional Goals: 1-Demonstrate ADL Tasks, 2-Verbalize Understanding, 3- ImproveStrength/Héctor 1=Demonstrate adherence to instructed precautions during ADL tasks. 2=Patient will verbalize/demonstrate understanding of assistive devices/modifications for ADL. 3=Patient will improve strength/tolerance for activity to enable patient to perform ADL's. Speech Farm Marketer Goals Farm Marketer Goals Patient will improve cognitive-communication necessary for safety and daily living tasks with minimal assist. JAS TEMPLE PT Aug 22, 2020 11:02
[2020-08-22 14:21] VITALS: BP 127/76
--- NOTE | 2020-08-22 14:44 | Progress Note-Post Operative ---
Post-Operative Progess Note Surgeon (s)/Perfume And Toilet Water Maker (s) Surgeon AARTI MARCUS MD Perfume And Toilet Water Maker: none Pre-Operative Diagnosis stage4 sacral decubitus ulcer Post-Operative Diagnosis same Procedure & Operative Findings Date of Procedure 08/22/20 Procedure Performed/Findings debridment subcutaneous, fascia, bone Anesthesia Type mac with local Estimated Blood Loss Estimated blood loss (mL): 100ml Specimens/Packing Specimens Removed sacral decubitus AARTI MARCUS MD Aug 22, 2020 14:44
--- NOTE | 2020-08-22 19:52 | OPERATIVE REPORT ---
DATE OF SERVICE: 08/22/2020 ADMITTING PHYSICIAN: Dr. Farr. PREOPERATIVE DIAGNOSIS: Stage IV sacral decubitus ulcer 10 x 10 cm in size. POSTOPERATIVE DIAGNOSIS: Stage IV sacral decubitus ulcer 10 x 10 cm in size. PROCEDURE: Debridement, subcutaneous tissue, fascia and bone, area of 10 x 10 cm. SURGEON: Aarti Barakat MD. ANESTHESIA: Monitored anesthesia care with local. ESTIMATED BLOOD LOSS: 100 mL. FINDINGS: Necrotic subcutaneous tissue and fascia overlying the sacrum. DISPOSITION: The patient tolerated the procedure well. INDICATIONS: The patient is a 35-year-old male who has had long-term complications secondary to coronavirus-19 infection. He was admitted early June and required long-term intubation and mechanical ventilation. He was then transferred to [facility]-term acute care facility and did improve to where he was able to be extubated. He has the long-term complications of coronavirus including significant muscle weakness, neuropathy and is nonambulatory. He has developed a significant size sacral decubitus ulcer overlying the coccyx and underwent debridement approximately 1 week ago and has had a wound VAC placed; however, upon wound VAC change yesterday there was a significant necrotic subcutaneous tissue and fascia as well as very mild malodorous. DESCRIPTION OF PROCEDURE: The patient was brought to the operating room, laid in the left lateral decubitus position on his gurney. The buttock back and perineum were then prepped and draped in standard surgical fashion. The patient was given IV pain and sedative medications and monitored anesthesia care and then we proceeded with local anesthesia with 1% lidocaine with epinephrine. We then proceeded with meticulous dissection of all of the necrotic subcutaneous tissue, fascia as well as partial segments of the sacrum. This was done using Metzenbaum scissors as well as Larios scissors. We then obtained good hemostasis with electrocautery. The area of debridement was 10 x 10 cm. The wound cavity was then copiously irrigated and suctioned out with visualization of good hemostasis. The VeraFlo wound VAC was then placed by wound Care Nursing. The patient tolerated the procedure well. We will continue with frequent movement and turning as well as physical therapy. We also continued to have wound Care Nursing change the dressing 2 times a week and continue to reevaluate the wound. Job ID: [id number] DocumentID: [id number] Dictated Date: 08/22/2020 14:51:51 Fha Underwriter Date: 08/22/2020 19:52:18 Dictated By: AARTI BARAKAT MD
--- NOTE | 2020-08-23 08:43 | Therapy Team Discharge Summary ---
Therapy Discharge Summary Discharge Recommendations Date of Discharge Aug 22, 2020 at 13:30 Therapy D/C Recommendations: 24 hr Supervision Occupational Therapy Pt. seen in inpatient rehab in conjunction with PT to work on overall strengthening, endurance, performance with ADL skills, and mobility for functional return home. Pt. discharged to acute setting, as he had to have another sacral debriedment, and also had changes in medical status. Pt. did not meet goals at this time due to changes and ongoing acute care needed. Decreased Activ Tolerance, Decreased UE Strength, Dependent Transfers, Impaired Bed Mobility, Impaired Cognition, Impaired Funct Balance, Impaired I ADL's, Impaired Self-Care Skills, Restricted Funct UE ROM PT Fingerprint Clerk Goals Nursing Home Goals PT Nursing Home Goals Time Frame: Aug 31, 2020 Roll Left to Right (QC): 6 Sit to Lying (QC): 3 Lying-Sitting on Side/Bed(QC): 3 Sit to Stand (QC): 2 Chair/Yoc-el-Nrwag Xfer(QC): 2 Car Transfer (QC): 1 Does the Patient Walk: No and Walking Goal NOT indicated Walk 10 feet (QC): 88 Walk 10ft-Uneven Surface(QC): 88 Walk 50ft with 2 Turns (QC): 88 Walk 150 ft (QC): 88 Wheel 50 feet with 2 turns (QC: 3 1 Step (curb) (QC): 88 4 Steps (QC): 88 12 Steps (QC): 88 Picking up an Object (QC): 88 OT Fingerprint Clerk Goals Fingerprint Clerk Goals Time Frame: Aug 31, 2020 Eating (QC): 6 (not met) Oral Hygiene (QC): 6 (not met) Shower/Bathe Self (QC): 4 (not met) Upper Body Dressing (QC): 6 (not met) Lower Body Dressing (QC): 4 (not met) On/Off Footwear (QC): 4 (not met) Toileting Hygiene (QC): 4 (not met) Toilet/Commode Transfer (QC): 2 (not met) Additional Goals: 1-Demonstrate ADL Tasks, 2-Verbalize Understanding, 3- ImproveStrength/Héctor 1=Demonstrate adherence to instructed precautions during ADL tasks. 2=Patient will verbalize/demonstrate understanding of assistive devices/mo difications for ADL. 3=Patient will improve strength/tolerance for activity to enable patient to perform ADL's. Speech Nursing Home Goals Nursing Home Goals Patient will improve cognitive-communication necessary for safety and daily living tasks with minimal assist. SWATI DOS SANTOS OT Aug 23, 2020 08:43
--- NOTE | 2020-08-23 10:50 | Therapy Team Discharge Summary ---
Therapy Discharge Summary Discharge Recommendations Date of Discharge Aug 22, 2020 at 13:30 Therapy D/C Recommendations: 24 hr Supervision Occupational Therapy Decreased Activ Tolerance, Decreased UE Strength, Dependent Transfers, Impaired Bed Mobility, Impaired Cognition, Impaired Funct Balance, Impaired I ADL's, Impaired Self-Care Skills, Restricted Funct UE ROM Speech-Language Pathology Patient was admitted to the ARU following months of critical illness and recovery. The patient received skilled ST with focus on communication and safety awareness. Patient was discharged on 08/22/2020 to acute floor for wound care and surgery. PT Mcfp Goals Mcfp Goals PT Mcfp Goals Time Frame: Aug 31, 2020 Roll Left to Right (QC): 6 Sit to Lying (QC): 3 Lying-Sitting on Side/Bed(QC): 3 Sit to Stand (QC): 2 Chair/Cyx-fo-Efsat Xfer(QC): 2 Car Transfer (QC): 1 Does the Patient Walk: No and Walking Goal NOT indicated Walk 10 feet (QC): 88 Walk 10ft-Uneven Surface(QC): 88 Walk 50ft with 2 Turns (QC): 88 Walk 150 ft (QC): 88 Wheel 50 feet with 2 turns (QC: 3 1 Step (curb) (QC): 88 4 Steps (QC): 88 12 Steps (QC): 88 Picking up an Object (QC): 88 OT Product Manager Financial Services Goals Product Manager Financial Services Goals Time Frame: Aug 31, 2020 Eating (QC): 6 (not met) Oral Hygiene (QC): 6 (not met) Shower/Bathe Self (QC): 4 (not met) Upper Body Dressing (QC): 6 (not met) Lower Body Dressing (QC): 4 (not met) On/Off Footwear (QC): 4 (not met) Toileting Hygiene (QC): 4 (not met) Toilet/Commode Transfer (QC): 2 (not met) Additional Goals: 1-Demonstrate ADL Tasks, 2-Verbalize Understanding, 3- ImproveStrength/Héctor 1=Demonstrate adherence to instructed precautions during ADL tasks. 2=Patient will verbalize/demonstrate understanding of assistive devices/modifications for ADL. 3=Patient will improve strength/tolerance for activity to enable patient to perform ADL's. Speech Product Manager Financial Services Goals Mcfp Goals Patient will improve cognitive-communication necessary for safety and daily living tasks with minimal assist. BRADEN ADBUL Aug 23, 2020 10:50
[2020-08-25] MEDS ORDERED: HYDR2VIA2 IVP (12:07)
[2020-08-25] MEDS ORDERED: OXC5T PO (12:07)
[2020-08-25] MEDS ORDERED: HYDR-34 PO (12:07)
[2020-08-25] MEDS ORDERED: INSU100V16 SC (12:07)
[2020-08-25] MEDS ORDERED: ONDA2VIACC IVP (12:07)
[2020-08-25] MEDS ORDERED: ENOX40DI8 SC (12:07)
== END 2020-08-22 13:30 | disposition short-term general hospital (02) | DRG 91 ==
PROVIDERS: ADMIT Internal Medicine; ATTEND Internal Medicine
DX: G72.81 Critical illness myopathy (principal); L89.154 Pressure ulcer of sacral region, stage 4; Z68.41 Body mass index [BMI] 40.0-44.9, adult; F84.0 Autistic disorder; B94.8 Sequelae of other specified infectious and parasitic diseases; L89.819 Pressure ulcer of head, unspecified stage; L89.899 Pressure ulcer of other site, unspecified stage; M41.9 Scoliosis, unspecified; E66.01 Morbid (severe) obesity due to excess calories; F32.9 Major depressive disorder, single episode, unspecified; I10 Essential (primary) hypertension; E11.40 Type 2 diabetes mellitus with diabetic neuropathy, unspecified; E78.00 Pure hypercholesterolemia, unspecified; R00.0 Tachycardia, unspecified; E86.1 Hypovolemia; F41.9 Anxiety disorder, unspecified; E78.5 Hyperlipidemia, unspecified; B35.1 Tinea unguium; K59.00 Constipation, unspecified; I95.2 Hypotension due to drugs; Z79.4 Long term (current) use of insulin; T46.5X5A Adverse effect of other antihypertensive drugs, initial encounter
CPT/HCPCS: 36415; 36569; 71046; 76937; 80053; 81000; 82962; 83540; 83605; 84145; 85007; 85025; 85027; 86850; 86900; 86901; 86920; 93005; 94760

== ENCOUNTER → 2020-08-16 | Day surgery (SDC) | payer MEDICARE, MEDICAID ==
[~2020-08-16] MED LIST changes: +ACET325C7 PO; +ALBU18HF2 INH; -ALPRAZolam 0.25 MG (XANAX) TAB PO PRN; +ASCO500T17 PO; +BALS60OI TP; -BISACODYL 10 MG SUPP (DULCOLAX) PR PRN; -CALCIUM CARBONATE 500 MG (TUMS) TAB.CHEW PO PRN; +CANA1TAB6 PO; +CETI10TA17 PO; +CHOL500044 PO; +CLN.1T PO; +COLL30OI TP; +DILT180C84 PO; -DOCUSATE SODIUM 100 MG (COLACE) CAP PO PRN; +DULO30CA49 PO; +ENOX40DI8 SC; -FLEET ENEMA ADULT 1 EA BTL PR PRN; +FURO40TA4 PO; +GABA300C PO; +HYDR-34 PO; +HYDR2VIA2 IVP; +HYDROmorphone 2 MG/ML VIAL (DILAUDID) IV ONE; +IBUP-2185 PO; +INSU100V SQ; +INSU100V6 SQ; +IPRA3AMP31 IH; +LACT1CAP76 PO; +LACTATED RINGERS 1,000 ML IV PRN; -LACTULOSE SYRUP 10GM/15ML (ENULOSE) 30ML UDC PO PRN; +LIDOCAINE PF 2% 5 ML (XYLOCAINE) VIAL ONE; -LOPERAMIDE 2 MG (IMODIUM) TABLET PO PRN; +MELA5TAB14 PO; -MELATONIN 3 MG TABLET PO PRN; +MIDAZOLAM 2 MG/2 ML (VERSED) VIAL ONE; +MULT-349 PO; +ONDA2VIACC IVP; -ONDANSETRON 4 MG (ZOFRAN) ORAL DISSOLVE TAB PO PRN; +ONDANSETRON 4 MG/2 ML (SDV) Z0FRAN IVP PRN; +ONDANSETRON 4 MG/2 ML (SDV) Z0FRAN ONE; +OXC5T PO; +PHENYLEPHRINE 100 MCG/ML 10 ML (ANESTHESIA) SYR ONE; +QUET25TA34 PO; +ROCURONIUM 10 MG/ML 5 ML SYRINGE IV ONE; +SENN-234 PO; +SEVOFLURANE (ULTANE) 15 ML INHAL SOLN ONE; +TMSL.4C PO; -diphenhydrAMINE 25 MG TAB (BENADRYL) PO PRN; +fentaNYL INJ 100 MCG/2 ML AMP ONE; -guaiFENesin/CODEINE (ROBITUSSIN AC) 10ML UDC PO PRN; +morphine INJ 10 MG/ML 1ML (SYR OR VIAL) IVP ONE; +proPOfol 200 MG/20 ML (DIPRIVAN) VIAL IV ONE
--- NOTE | 2020-08-16 13:43 | Progress Note-Pre Operative ---
Pre-Operative Progress Note H&P Reviewed The H&P was reviewed, patient examined and no changes noted. Time Seen by Provider: 13:21 Date H&P Reviewed: Aug 16, 2020 Time H&P Reviewed: 13:22 Pre-Operative Diagnosis: Sacral Decub with necrotic tissue ANDRES MIRANDA DO Aug 16, 2020 13:43
--- NOTE | 2020-08-16 14:17 | Progress Note-Post Operative ---
Post-Operative Progess Note Surgeon (s)/Group Activities Aide (s) Surgeon ANDRES MIRANDA DO Group Activities Aide: JERICA Messina Pre-Operative Diagnosis Sacral Decub with necrotic tissue Post-Operative Diagnosis same plus abscess Procedure & Operative Findings Date of Procedure 08/16/20 Procedure Performed/Findings Debridement of sacral decub, 11 x 8 x 4.5cm area opening of deep sacral abscess Anesthesia Type GET Estimated Blood Loss Estimated blood loss (mL): 100ml Specimens/Packing Specimens Removed necrotic tissue abscess culture ANDRES MIRANDA DO Aug 16, 2020 14:17
[2020-08-16 14:26] VITALS: BP 120/69
[2020-08-16 14:30] VITALS: BP 114/96
--- NOTE | 2020-08-16 14:38 | Anesthesia-General Post-Op ---
General Patient Condition Mental Status/LOC: Same as Preop Cardiovascular: Satisfactory Nausea/Vomiting: Absent Respiratory: Satisfactory Pain: Controlled Complications: Absent Post Op Complications Complications None Follow Up Care/Instructions Patient Instructions None needed. Anesthesia/Patient Condition Patient Condition Patient is doing well, C/O pain which is unfortunately to be expected, stable vital signs, no apparent adverse anesthesia problems. KAREN STAPLES DO Aug 16, 2020 14:38
[2020-08-16 14:40] VITALS: BP 117/78
[2020-08-16 14:50] VITALS: BP 113/78
[2020-08-16 15:00] VITALS: BP 111/73
[2020-08-16 15:10] VITALS: BP 107/63
--- NOTE | 2020-08-16 20:06 | CONSULTATION REPORT ---
DATE OF SERVICE: 08/16/2020 REASON FOR CONSULTATION: Foot care. HISTORY OF PRESENT ILLNESS: This 34-year-old male with special needs was admitted after long-term intubation for rehabilitation on the second floor. PAST MEDICAL HISTORY: Hypercholesterolemia, hypertension, developmental disorder, diabetes, insulin-dependent, depression. ALLERGIES: He has no known drug allergies. SOCIAL HISTORY: He is single and employed. Never smoker. Denies alcohol use. PHYSICAL EXAMINATION: PULSES AND EXTREMITIES: The patient has a 2/4 dorsalis pedis pulse, 0/4 posterior tibial pulse bilaterally. Cap refill time is less than 3 seconds. There is pitting edema bilateral lower extremity. NEUROLOGIC: He has diminished protective sensation with 10 gram monofilament wire examination bilaterally. Diminished vibratory sensation to the forefoot bilaterally. INTEGUMENTARY: The patient has a thick yellow dystrophic toenail with subungual debris associated with R1 and L1 digit. There is evidence of old trauma to the left great toe with subungual discoloration. No active exudate, no proximal streaking. No gross signs of bacterial infection. MUSCULOSKELETAL: The patient has 3/5 muscle strength to the four major quadrants of the foot bilaterally. He has discomfort with motion of the right foot whether it be inversion, eversion, dorsiflexion or plantarflexion. This seems very sensitive foot with no specific spot or point to palpation. ASSESSMENT: Diabetic neuropathy, onychomycosis. PLAN: Various options were discussed with the patient today. We discussed diabetic foot care. His toenails were debrided today, manually mechanically. Betadine applied in R1 and L1 digits. The patient is welcome to follow up upon discharge in our office for any additional needs. Job ID: [id number] DocumentID: [id number] Dictated Date: 08/16/2020 17:42:34 Audiovisual Lead Technician Date: 08/16/2020 20:05:47 Dictated By: PETROS VILLALPANDO DPM
--- NOTE | 2020-08-17 09:59 | OPERATIVE REPORT ---
DATE OF SERVICE: 08/16/2020 PREOPERATIVE DIAGNOSIS: Sacral decubitus ulcer with necrotic tissue. POSTOPERATIVE DIAGNOSES: Sacral decubitus ulcer with necrotic tissue, sacral abscess. PROCEDURE: Debridement of sacral ulcer with packing, measuring 11 x 8 x 4.5 cm. SURGEON: Mark Santillan DO QUILL MACHINE TENDER: NADIYA Messina. ANESTHESIA: LMA. SPECIMEN: Culture from the abscess and necrotic tissue. BLOOD LOSS: Approximately 100 mL. FLUIDS: Per anesthesia. POSTOPERATIVE CONDITION: Stable. INDICATION FOR PROCEDURE: The patient is a 34-year-old male who was in outside facility where he got a sacral decubitus, had a little bit of necrotic tissue. Tried some chemical debridement with the Dakin solution, but this did not work and so he need to go to the operating room. FINDINGS: The patient had necrotic tissue in the base and lópez of the ulcer and as well found abscess deep. PROCEDURE NOTE: After informed consent was obtained, the patient was brought to the operating room, placed on the operating table in a right lateral decubitus position, started cutting out portion of the necrotic tissue and skin; measuring 11 cm x 8 cm about 4.5 cm deep cutting through the tissue down cutting down all the necrotic tissue and then down at the base, encountered an abscess, cultured this and then opened this up, took more the necrotic tissue. Finally, debrided this entire area and then controlled bleeding with Bovie electrocautery. Copiously irrigated with saline, controlled the bleeding as much as possible and then packed with one inch iodoform packing and then a pressure dressing. The patient tolerated the procedure. Sponge, instrument and needle count correct at the end of the case. Job ID: [id number] DocumentID: [id number] Dictated Date: 08/17/2020 09:13:13 Stopper Grinder Date: 08/17/2020 09:58:59 Dictated By: MARK SANTILLAN DO [facility]
== END ==
LOC: SDC 06:54
PROVIDERS: ATTEND Surgery
DX: L89.159 Pressure ulcer of sacral region, unspecified stage (principal); S31.000A Unspecified open wound of lower back and pelvis without penetration into retroperitoneum, initial encounter; I10 Essential (primary) hypertension; E78.00 Pure hypercholesterolemia, unspecified; F32.9 Major depressive disorder, single episode, unspecified; E11.9 Type 2 diabetes mellitus without complications; Z79.4 Long term (current) use of insulin; Z79.899 Other long term (current) drug therapy
CPT/HCPCS: 87070; 87075; 87076; 87077; 87186; 87205; 88304

== ENCOUNTER 2020-08-22 08:11 | Inpatient (IN) | payer MEDICARE, MEDICAID ==
[2020-08-22] VITALS (7 sets, daily range): BP systolic 115–124; BP diastolic 66–84
[~2020-08-22] VITALS: Ht 188 cm; Wt 135.0 kg
[~2020-08-22 08:11] MED LIST changes: -ENOX40DI8 SC; -HYDR-34 PO; -HYDR2VIA2 IVP; -HYDROmorphone 2 MG/ML VIAL (DILAUDID) IV ONE; -LACTATED RINGERS 1,000 ML IV PRN; -LIDOCAINE PF 2% 5 ML (XYLOCAINE) VIAL ONE; -MIDAZOLAM 2 MG/2 ML (VERSED) VIAL ONE; -ONDA2VIACC IVP; -ONDANSETRON 4 MG/2 ML (SDV) Z0FRAN IVP PRN; -ONDANSETRON 4 MG/2 ML (SDV) Z0FRAN ONE; -OXC5T PO; -PHENYLEPHRINE 100 MCG/ML 10 ML (ANESTHESIA) SYR ONE; -ROCURONIUM 10 MG/ML 5 ML SYRINGE IV ONE; -SEVOFLURANE (ULTANE) 15 ML INHAL SOLN ONE; -fentaNYL INJ 100 MCG/2 ML AMP ONE; -morphine INJ 10 MG/ML 1ML (SYR OR VIAL) IVP ONE; -proPOfol 200 MG/20 ML (DIPRIVAN) VIAL IV ONE
[2020-08-22] MEDS ORDERED: LACTATED RINGERS 1,000 ML IV PRN (14:00)
[2020-08-22] MEDS ORDERED: LIDOCAINE/EPI 1%-1:100,000 (XYLOCAINE) 30ML ONE (14:09)
[2020-08-22] MEDS ORDERED: ONDANSETRON 4 MG/2 ML (SDV) Z0FRAN IVP PRN (15:15)
[2020-08-22] MEDS ORDERED: HYDROmorphone 2 MG/ML VIAL (DILAUDID) IV ONE (15:15)
[2020-08-22] MEDS ORDERED: morphine INJ 10 MG/ML 1ML (SYR OR VIAL) IVP ONE (15:15)
--- NOTE | 2020-08-22 15:20 | Anesthesia-General Post-Op ---
MAC Patient Condition Mental Status/LOC: Same as Preop Cardiovascular: Satisfactory Nausea/Vomiting: Absent Respiratory: Satisfactory Pain: Controlled Complications: Absent Post Op Complications Complications None Follow Up Care/Instructions Patient Instructions None needed. Anesthesiology Discharge Order Discharge Order Patient is doing well, no complaints, stable vital signs, no apparent adverse anesthesia problems. KAREN STAPLES DO Aug 22, 2020 15:20
[2020-08-22] MEDS ORDERED: fentaNYL INJ 100 MCG/2 ML AMP IVP PRN (16:30)
[2020-08-22] MEDS ORDERED: fentaNYL INJ 100 MCG/2 ML AMP ONE (16:58)
[2020-08-22] MEDS ORDERED: GABAPENTIN 300 MG (NEURONTIN) CAP PO PRN (18:15)
[2020-08-22] MEDS ORDERED: NON-FORMULARY MEDICATION 1 EA EA (Dulaglutide (Trulicity) 0.75 MG) SQ SCH (18:15)
[2020-08-22] MEDS ORDERED: RT-ALBUTEROL SULF 2.5 MG/3 ML PRE-MIX VIAL INH PRN (18:15)
[2020-08-22] MEDS: NS IV 1000 ML 1,000 ML IV SCH (18:50)
[2020-08-22] MEDS: HYDROcodone/APAP 7.5 MG/325 MG (LORTAB, LORCET PLUS) TABLET PO PRN ×2 (18:51→23:23)
[2020-08-22] MEDS ORDERED: ACETAMINOPHEN 325 MG TABLET PO PRN (19:00)
[2020-08-22] MEDS: ENOXAPARIN 40 MG/0.4 ML (LOVENOX) SYR SC SCH (20:26)
[2020-08-22] MEDS: meTOprolol TARTRATE 50 MG (LOPRESSOR) TAB PO SCH (20:26)
[2020-08-22] MEDS: GEMFIBROZIL 600 MG (LOPID) TAB PO SCH (20:26)
[2020-08-23] MEDS: NS IV 1000 ML 1,000 ML IV SCH ×4 (02:39→17:54)
[2020-08-23] MEDS: HYDROcodone/APAP 7.5 MG/325 MG (LORTAB, LORCET PLUS) TABLET PO PRN ×4 (03:44→21:58)
[2020-08-23 04:21] VITALS: BP 105/58
[2020-08-23 06:13] LABS: BASOPHILS # (AUTO) 0.1 10^3/uL (0.0-0.1); BASOPHILS % (AUTO) 1 % (0-10); EOSINOPHILS # (AUTO) 0.1 10^3/uL (0.0-0.3); EOSINOPHILS % (AUTO) 1 % (0-10); HEMATOCRIT 32 % (40-54); HEMOGLOBIN 10.1 g/dL (13.3-17.7); LYMPHOCYTES % (AUTO) 25 % (12-44); MEAN CORPUSCULAR HEMOGLOBIN 26 pg (25-34); MEAN CORPUSCULAR HGB CONC 32 g/dL (32-36); MEAN CORPUSCULAR VOLUME 82 fL (80-99); MEAN PLATELET VOLUME 8.3 fL (9.0-12.2); MONOCYTES # (AUTO) 1.1 10^3/uL (0.0-1.0); MONOCYTES % (AUTO) 10 % (0-12); NEUTROPHILS # (AUTO) 7.5 10^3/uL (1.8-7.8); NEUTROPHILS % (AUTO) 63 % (42-75); PLATELET COUNT 576 10^3/uL (130-400); WHITE BLOOD COUNT 11.9 10^3/uL (4.3-11.0)
[2020-08-23 06:21] LABS: ALBUMIN 3.6 GM/DL (3.2-4.5); CHLORIDE 103 MMOL/L (98-107); POTASSIUM 3.9 MMOL/L (3.6-5.0); SODIUM 137 MMOL/L (135-145)
[2020-08-23 06:22] LABS: CALCIUM 9.4 MG/DL (8.5-10.1)
[2020-08-23 06:24] LABS: GLUCOSE 134 MG/DL (70-105); TOTAL PROTEIN 7.2 GM/DL (6.4-8.2)
[2020-08-23 06:25] LABS: CARBON DIOXIDE 21 MMOL/L (21-32)
[2020-08-23 06:26] LABS: BILIRUBIN,TOTAL 0.4 MG/DL (0.1-1.0)
[2020-08-23 06:27] LABS: ALKALINE PHOSPHATASE 91 U/L (40-136); CREATININE SERUM 0.56 MG/DL (0.60-1.30); GFR ESTIMATED > 60
[2020-08-23 06:28] LABS: BUN/CREATININE RATIO 14
[2020-08-23 06:30] LABS: ALANINE AMINOTRANSFERASE 13 U/L (0-55)
--- NOTE | 2020-08-23 07:49 | Progress Note - Surgery ---
EDITHKADEN MED STUDENT 08/23/20 0749: Subjective Date Seen by a Provider: Aug 23, 2020 Time Seen by a Provider: 07:15 Subjective/Events-last exam Pt is awake and laying in bed this morning. He appears to be in some distress, uncomfortable and hot in his position. But is turned and states he feels much better. He was taken to OR again yesterday due to needing more debreidment. States that today his ulcers on face and knee are not bothering him at all. Sacral ulcer is only minimally bothering him, not really pain. States he does have a pain he rates a 3 in his feet but that is usual for him. States that he has been a little constipated lately, unsure of last BM. Denies any blood or pain w/ BM. Patient has been eating fine with no difficulties swalling or nausea/vomiting. He has not had any PT since coming to 4th floor but is planned to be restarted when he moves back down to 2. Wound vac is in place, almost full. He received a unit of blood over the weekend due to his HBB falling to 7. Is stable today Review of Systems General: No Chills, No Malaise HEENT: No Head Aches, No Visual Changes Pulmonary: No Dyspnea, No Cough Cardiovascular: No: Chest Pain, Palpitations Gastrointestinal: Constipation; No: Nausea, Vomiting, Abdominal Pain, Melena, Hematochezia Genitourinary: No Dysuria, No Hematuria Musculoskeletal: foot pain; No: leg pain Objective Exam Vital Signs Date Time Temp Pulse Resp B/P (MAP) Pulse Ox O2 Delivery O2 Flow Rate FiO2 08/23/20 07:04 Room Air 08/23/20 04:21 36.0 113 22 105/58 (74) 97 Room Air 08/22/20 23:39 36.2 114 20 119/71 (87) 99 Room Air 08/22/20 21:00 118 20 97 Room Air 08/22/20 20:25 Room Air 08/22/20 19:10 35.0 135 20 122/73 (89) 95 Room Air 08/22/20 16:00 36.8 126 21 123/66 (85) 93 Room Air 08/22/20 15:59 Room Air 08/22/20 15:40 Room Air 08/22/20 15:40 36.4 18 124/84 (97) 95 Room Air 08/22/20 15:30 18 121/82 (95) 96 Room Air 08/22/20 15:25 Room Air 08/22/20 15:20 18 116/80 (92) 95 Room Air 08/22/20 15:15 36.3 18 115/74 (88) 100 OxyMask 3 08/22/20 15:15 OxyMask 3 I & O 08/23/20 07:00 Intake Total 879 ml Output Total 750 ml Balance 129 ml Capillary Refill : General Appearance: No Apparent Distress Respiratory: Chest Non Tender, Lungs Clear, Normal Breath Sounds, No Accessory Muscle Use, No Respiratory Distress Cardiovascular: Regular Rate, Rhythm, No Edema, No Murmur Peripheral Pulses: 2+ Radial Pulses (R), 2+ Radial Pulses (L) Gastrointestinal: normal bowel sounds, non tender, soft Extremity: No Calf Tenderness, No Pedal Edema, Other (Decubitus ulcer on L knee. Wrapped in bandage, no leaking noted. ) Neurologic/Psychiatric: Alert, Oriented x3, Depressed Affect Skin: Normal Color, Warm/Dry, Other (Grade 4 Decubitus ulcer on sacrum, wound vac in place, some eryhtma at edges. No leaking, draining well. ) Results Lab Laboratory Tests 08/23/20 06:01: White Blood Count 11.9H, Red Blood Count 3.94L, Hemoglobin 10.1L, Hematocrit 32L , Mean Corpuscular Volume 82, Mean Corpuscular Hemoglobin 26, Mean Corpuscular Hemoglobin Concent 32, Red Cell Distribution Width 14.0, Platelet Count 576H, Mean Platelet Volume 8.3L, Immature Granulocyte % (Auto) 1, Neutrophils (%) (Auto) 63, Lymphocytes (%) (Auto) 25, Monocytes (%) (Auto) 10, Eosinophils (%) (Auto) 1, Basophils (%) (Auto) 1, Neutrophils # (Auto) 7.5, Lymphocytes # (Auto) 3.0, Monocytes # (Auto) 1.1H, Eosinophils # (Auto) 0.1, Basophils # (Auto) 0.1, Immature Granulocyte # (Auto) 0.1, Sodium Level 137, Potassium Level 3.9, Chloride Level 103, Carbon Dioxide Level 21, Anion Gap 13, Blood Urea Nitrogen 8, Creatinine 0.56L, Estimat Glomerular Filtration Rate > 60, BUN/Creatinine Ratio 14, Glucose Level 134H, Calcium Level 9.4, Corrected Calcium 9.7, Total Bilirubin 0.4, Aspartate Amino Transf (AST/SGOT) 12, Alanine Aminotransferase (ALT/SGPT) 13, Alkaline Phosphatase 91, Total Protein 7.2, Albumin 3.6 Assessment/Plan Assessment/Plan Admission Diagonsis S/P Sacral Decubitus ulcer debreidmnet -Continue Changing dressing and wound vac as needed -Continue to check daily CBC for signs of infection -Continue Pain medication as necessary -Sanofyl for ulcer on knee and face -Once wound shows signs of healing pt can transfer back to 2nd floor DMII -Continue home medications and glucose checks Anemia -Stable and improving -Received a unit of blood a few days ago -Continue to Check daily CBC MARK SANTILLAN DO 08/23/20 1446: Subjective Time Seen by a Provider: 13:29 Subjective/Events-last exam Pt seen and examined, no new complaints. Review of Systems General: No Chills; Malaise HEENT: No Head Aches, No Visual Changes Pulmonary: No Dyspnea, No Cough Cardiovascular: No: Chest Pain, Palpitations Gastrointestinal: Constipation; No: Nausea, Vomiting, Abdominal Pain Musculoskeletal: foot pain Objective Exam General Appearance: No Apparent Distress, Obese Respiratory: Chest Non Tender, Lungs Clear, Normal Breath Sounds, No Accessory Muscle Use, No Respiratory Distress Cardiovascular: Regular Rate, Rhythm, No Murmur Gastrointestinal: soft Extremity: No Calf Tenderness, Other (Decubitus ulcer on L knee. Wrapped in bandage, no leaking noted. ) Neurologic/Psychiatric: Alert, Oriented x3, Depressed Affect Skin: Normal Color, Warm/Dry, Other (Grade 4 Decubitus ulcer on sacrum, wound vac in place, some eryhtma at edges. No leaking, draining well. ) Assessment/Plan Assessment/Plan Assessment/Plan S/P Sacral Decubitus ulcer debreidmnet -Wound VAC change Friday with rep -Will check at that time for more necrotic tissue and asses need for debridement -Continue Pain medication as necessary -Sanofyl for ulcer on knee -Once wound shows signs of healing pt can transfer back to 2nd floor DMII -Continue home medications and glucose checks Anemia -Stable and improving -Received a unit of blood a few days ago -Continue to Check daily CBC Supervisory-Addendum Brief Verification & Attestation Participated in pt care: history, MDM, physical, procedure Personally performed: exam, history, MDM Care discussed with: Medical Student Procedures: n/a Verification and Attestation of Medical Student E/M Service A medical student performed and documented this service. I then reviewed and verified all information documented by the medical student and made modifications to such information, when appropriate. I personally performed a physical exam, medical decision making and then discussed any differences between the notes and made revisions as necessary to create one note. Mark Santillan , 08/23/20 , 14:45 KADEN SHARMA MED STUDENT Aug 23, 2020 07:49 MARK SANTILLAN DO Aug 23, 2020 14:46
[2020-08-23 08:00] VITALS: BP 129/69
[2020-08-23] MEDS: metFORMIN 500 MG (GLUCOPHAGE) TAB PO SCH ×2 (08:28→17:49)
[2020-08-23] MEDS: DULoxetine 30 MG (CYMBALTA) CAP PO SCH (08:33)
[2020-08-23] MEDS: meTOprolol TARTRATE 50 MG (LOPRESSOR) TAB PO SCH ×2 (08:34→21:32)
[2020-08-23] MEDS: MULTIVIT W/MINERALS TAB (THERAGRAN M) PO SCH (08:34)
[2020-08-23] MEDS: PIOGLITAZONE 30MG (ACTOS) TAB PO SCH (08:34)
[2020-08-23] MEDS: LORATADINE (CLARITIN) 10 MG TAB PO SCH (08:34)
[2020-08-23] MEDS: MONTELUKAST 10 MG (SINGULAIR) TAB PO SCH (08:35)
[2020-08-23] MEDS ORDERED: CANAGLIFLOZIN PO SCH (09:00)
[2020-08-23] MEDS ORDERED: [UNRECOGNIZED DRUG - OTHER] PO SCH (09:00)
[2020-08-23] MEDS ORDERED: METFORMIN HCL PO SCH (09:00)
[2020-08-23] MEDS ORDERED: NON-FORMULARY MEDICATION 1 EA EA (Brexpiprazole (Rexulti) 0.5 MG) PO SCH (09:00)
--- NOTE | 2020-08-23 09:30 | History & Physical-Hospitalist ---
History of Present Illness HPI/Chief Complaint CC: Coccyx debridement HPI: This is a 35yoWM transferred from inpatient rehab due to debridement needed for Coccyx decubitus ulcer. Dr. Barakat performed the debridement and at this current time, Pt denies any other issues. PT and OT will be ordered. Acu-checks will be started. Home meds restarted. Wound vac in place. Needs NHP. Source: patient, RN/MD, old records Exam Limitations: no limitations Date Seen 08/23/20 Time Seen by a Provider: 10:00 Attending Physician Allyssa Barakat MD, Linda K DO Referring Physician Date of Admission Home Medications & Allergies Home Medications Reviewed patient Home Medication Reconciliation performed by pharmacy medication reconciliations wireless cellular technician and/or nursing. Patients Allergies have been reviewed. Allergies Allergies Coded Allergies No Known Drug Allergies (Unverified06/08/20) Past Ztllkhi-Wpdjxv-Izuaix Hx Past Med/Social Hx: Reviewed Nursing Past Med/Soc Hx, Reviewed and Corrections made Patient Social History Marrital Status: single Employed/Student: unemployed Alcohol Use: Denies Use Smoking Status: Never a Smoker 2nd Hand Smoke Exposure: No Recent Hopitalizations: Yes (Recently released from [facility] following COVID infection. ) Immunizations Up To Date Tetanus Booster (TDap): Unknown Date of Influenza Vaccine: Feb 21, 2020 Seasonal Allergies Seasonal Allergies: No Past Medical History Respiratory: Sleep Apnea COVID 06/2020 Currently Using CPAP: No Currently Using BIPAP: No Cardiac: High Cholesterol, Hypertension Neurological: Developmental Disorder Reproductive: No Musculoskeletal: Foot Drop, Contracture Endocrine: Diabetes, Insulin dep Loss of Vision: Denies Hearing Impairment: Denies Psychosocial: Depression History of Blood Disorders: No Family History Hypertension, Other Conditions/Hx Review of Systems Constitutional: see HPI, malaise, weakness Physical Exam Physical Exam Vital Signs Vital Signs - First Documented 08/22/20 08/22/20 08/23/20 15:15 16:00 18:55 Temp 36.3 Pulse 126 Resp 18 B/P (MAP) 115/74 (88) Pulse Ox 100 O2 Delivery OxyMask O2 Flow Rate 3 FiO2 21 Capillary Refill : Height, Weight, BMI Height: 6'0.00" Weight: 360lbs. 0.0oz. [id number]; 38.19 BMI Method: General Appearance: No Apparent Distress, Chronically ill, Obese Eyes: Right Eye Normal Inspection, Right Eye PERRL HEENT: PERRL/EOMI, Normal ENT Inspection, Pharynx Normal, Moist Mucous Membranes Neck: Full Range of Motion, Normal Inspection, Non Tender Respiratory: Chest Non Tender, Lungs Clear, Normal Breath Sounds, No Accessory Muscle Use, No Respiratory Distress Cardiovascular: Regular Rate, Rhythm, No Edema, No Gallop, No JVD, No Murmur, Normal Peripheral Pulses Gastrointestinal: Normal Bowel Sounds, No Organomegaly, No Pulsatile Mass, Non Tender, Soft Back: Normal Inspection, No CVA Tenderness, No Vertebral Tenderness Extremity: Normal Capillary Refill, Normal Inspection, Normal Range of Motion (foot drop and hand drop bilateral), Non Tender, No Calf Tenderness, No Pedal Edema Neurologic/Psychiatric: Alert, Oriented x3, Depressed Affect, Motor Weakness Skin: Normal Color, Warm/Dry Lymphatic: No Adenopathy Results Results/Procedures Labs Laboratory Tests 08/23/20 06:01 Patient resulted labs reviewed. Assessment/Plan Admission Diagnosis Assessment:: Myopathy COVID-19 PNA 06/03/20 Hypoxia Morbid obesity HTN HLP Developmental delay/autism Decubitus ulcers coccyx and left knee s/p debridement 08/16/20 Dr Santillan and 08/22/20 Dr Barakat Tachycardia consulted Dr Busch dx hypovolemia so started IVF Plan: Wound care PT OT Home meds Pain meds Needs NHP Admission Status: Inpatient Order (span 2 midnights) Reason for Inpatient Admission: decubitus ulcer management Diagnosis/Problems Diagnosis/Problems (1) Decubitus ulcer (2) Morbid obesity Status: Chronic (3) Myopathy (4) COVID-19 HEMANTH DODD DO Aug 23, 2020 09:30
[2020-08-23] MEDS: GEMFIBROZIL 600 MG (LOPID) TAB PO SCH ×2 (09:38→21:32)
[2020-08-23] MEDS: ROSUVASTATIN 20 MG (CRESTOR) TABLET PO SCH (09:38)
[2020-08-23 12:00] VITALS: BP 131/79
--- NOTE | 2020-08-23 13:38 | Occupational Therapy Eval ---
OT Evaluation-General/PLF Medical Diagnosis Admission Date 08-22-20 Medical Diagnosis: Debility/decubitis ulcer Onset Date: Jun 02, 2020 Therapy Diagnosis Therapy Diagnosis: Weakness, Decreased ADL skills Height/Weight Height (Feet): 6 Height (Inches): 0.00 Weight (Pounds): 360 Weight (Ounces): 0.0 Precautions Precautions/Isolations: Fall Prevention, Standard Precautions Weight Bear Status Weight Bearing Restriction: Weight Bearing/Tolerated Referral Physician: Dr. Farr Referral Reason: Activity Tolerance, Self Care, Evaluation/Treatment, Stren gthening/ROM Medical History Pertinent Medical History: DM, HTN Additional Medical History Autism, sensory issues Current History Pt. has had complicated medical history. He came to hospital with Covid several months ago. He was put on a ventilator in ICU for approximately 3 weeks. Pt. transferred to [facility] on ventilator, and was on for another 2 weeks. When he became medically stable, he transferred to [facility] for acute rehab. Pt. 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 Pt. has underwent several debreidments, and now has wound vac. Reviewed History: Yes Social History Home: Apartment Current Living Status: Alone Entry Into Home: Stairs With Railing Steps Into Home: 12 Pt. was living in apartment on second story previous to hospitalization. However, he will be returning home with family if he can gain strength. Pt's mother is debilitated herself, and can't assist very much. Family is very supportive. ADL-Prior Level of Function SCALE: Activities may be completed with or without assistive devices. 1-Binuuuahor-zcqoohe completes the activity by him/herself with no assistance from a helper. 5-Set-up or Clean-up Assistance-helper sets up or cleans up; patient completes activity. [place] assists only prior to or following the activity. 4-Supervision or Touching Assistance-helper provides verbal cues and/or touching/steadying and/or contact guard assistance as patient completes activity. Assistance may be provided throughout the activity or intermittently. 3-Partial/Moderate Assistance-helper does LESS THAN HALF the effort. [place] lifts, holds or supports trunk or limbs, but provides less than half the effort. 2-Substantial/Maximal Assistance-helper does MORE THAN HALF the effort. [place] lifts or holds trunk or limbs and provides more than half the effort. 8-Zmdswbwkp-qxnbpz does ALL the effort. Patient does none of the effort to complete the activity. Or, the assistance of 2 or more helpers is required for the patient to complete the activity. If activity was not attempted, code reason: 7-Patient Refused. 9-Not Applicable-not attempted and the patient did not perform the activity before the current illness, exacerbation or injury. 10-Not Attempted due to Environmental Limitations-(lack of equipment, weather restraints, etc.). 88-Not Attempted due to Medical Conditions or Safety Concerns. ADL PLOF Comments Pt. verbalizes that he was independent with daily skills. He drives but does not work. Pt. reports that he mainly played video games on his computer during the day. He lived in an apartment across from [facility]. Self Care: Unknown Functional Cognition: Unknown Drive Self: Yes OT Current Status Subjective Pt. reports some discomfort in his foot and lower back with movement, but does not report pain. Pt. has had pain medication as needed. Appearance Pt. is laying on left side when therapy entered room. HOB is elevated, and right wrist brace is on so that pt. can feed self using built up foam handle on fork. Pt. finishing lunch. Mental Status/Objective Patient Orientation: Person, Place Attachments: IV Current Glasses/Contacts: Yes Hand Dominance: Right Upper Extremity ROM Pt. is able to flex bilateral shoulders in sitting to approximately 90 degrees. He is able to flex bilateral elbows, but is unable to extend bilateral wrists. He is able to "wiggle" his fingers, but overall has low tone in UE. ADL-Treatment Eating (QC): 5 Other Treatments PT/OT completed co-treatment due to low endurance and needed skill of 2 therapists. PT facilitated transfer to EOB while OT worked on UE movement and use. Pt. required mod assist for supine-sit with increased time needed. Pt's bed deflated prior to movement. Pt is able to sit on side of bed and balance self. Pt. able to sit approximately 15 minutes. During that time, OT facilitated pt. being able to open a card that was given to him, and to retrieve items from a gift bag that had been left for him. Pt. is able to grasp large items that are light in nature, but unable to pull heavier items out of bag. OT pulls these out for him. Pt. states that his low back is uncomfortable, and attempts to lay self down. Requires max assist to transfer sit-supine, and max x 2 for bed mobility and positioning. All needs met in room. Education OT Patient Education: Correct positioning, Modified ADL techniques, Progress toward Goal/Update tx plan, Purpose of tx/functional activities, Reviewed precautions, Rehab process, Transfer techniques Teaching Recipient: Patient Teaching Methods: Demonstration, Discussion Response to Teaching: Verbalize Understanding, Return Demonstration OT Short Term Goals Short Term Goals Time Frame: Sep 06, 2020 Eatin Oral hygiene: 4 Toileting hygiene: 3 Shower/bathe self: 3 Upper body dressin Lower body dressin Putting on/taking off footwear: 3 OT Fire Alarm Technician Goals Fdc Goals Time Frame: Sep 27, 2020 Eating (QC): 6 Oral Hygiene (QC): 5 Toileting Hygiene (QC): 4 Shower/Bathe Self (QC): 3 Upper Body Dressing (QC): 4 Lower Body Dressing (QC): 4 On/Off Footwear (QC): 3 Additional Goals: 1-Demonstrate ADL Tasks, 2-Verbalize Understanding, 3- ImproveStrength/Héctor 1=Demonstrate adherence to instructed precautions during ADL tasks. 2=Patient will verbalize/demonstrate understanding of assistive devices/modifications for ADL. 3=Patient will improve strength/tolerance for activity to enable patient to perform ADL's. OT Education/Plan Problem List/Assessment Assessment: Decreased Activ Tolerance, Decreased UE Strength, Dependent Transfers, Impaired Bed Mobility, Impaired Cognition, Impaired Coordination, Impaired Funct Balance, Impaired I ADL's, Impaired Self-Care Skills, Restricted Funct UE ROM Discharge Recommendations Plan/Recommendations: Continue POC Therapy Discharge Recommendati: Post Acute OT Comment Equipment needs and discharge location to be determined. Treatment Plan/Plan of Care Treatment,Training & Education: Yes Patient would benefit from OT for education, treatment and training to promote independence in ADL's, mobility, safety and/or upper extremity function for ADL's. Plan of Care: ADL Retraining, Functional Mobility, UE Funct Exercise/Act Treatment Duration: Sep 27, 2020 Frequency: 5 times per week Estimated Hrs Per Day: .5 hour per day Agreement: Yes Rehab Potential: Fair Time/GCodes Start Time: 13:00 Stop Time: 13:20 Total Time Billed (hr/min): 20 Billed Treatment Time 1, EVH x 20minutes Co-treatment with PT. Please see above note for designated roles. SWATI DOS SANTOS OT Aug 23, 2020 13:38
--- NOTE | 2020-08-23 15:06 | Physical Therapy Evaluation ---
PT Evaluation-General Medical Diagnosis Admission Date 08/22/20 Medical Diagnosis: Debility/decubitis ulcer Onset Date: Jun 02, 2020 Therapy Diagnosis Therapy Diagnosis: Debility Height/Weight Height (Feet): 6 Height (Inches): 0.00 Weight (Pounds): 360 Weight (Ounces): 0.0 Precautions Precautions/Isolations: Fall Prevention, Standard Precautions, Pressure Ulcer Weight Bear Status Right Lower Extremity: Right Weight Bearing/Tolerated Left Lower Extremity: Left Weight Bearing/Tolerated Referral Physician: Dr. Farr Reason for Referral: Evaluation/Treatment Medical History Pertinent Medical History: DM, HTN Current History Admitted with COVID and long-term ventilation. Presents with decubitus ulcer and wound vac. Reviewed History: Yes Social History Home: Apartment Current Living Status: Alone Entry Into Home: Stairs With Railing PT Steps Into Home: 12 Plans to return home with family Prior Prior Level of Function SCALE: Activities may be completed with or without assistive devices. 9-Zohcfrkbww-evxlsgz completes the activity by him/herself with no assistance f rom a helper. 5-Set-up or Clean-up Assistance-helper sets up or cleans up; patient completes activity. [place] assists only prior to or following the activity. 4-Supervision or Touching Assistance-helper provides verbal cues and/or touching/steadying and/or contact guard assistance as patient completes activity. Assistance may be provided throughout the activity or intermittently. 3-Partial/Moderate Assistance-helper does LESS THAN HALF the effort. [place] lifts, holds or supports trunk or limbs, but provides less than half the effort. 2-Substantial/Maximal Assistance-helper does MORE THAN HALF the effort. [place] lifts or holds trunk or limbs and provides more than half the effort. 8-Jgqejmpty-kzeycl does ALL the effort. Patient does none of the effort to complete the activity. Or, the assistance of 2 or more helpers is required for the patient to complete the activity. If activity was not attempted, code reason: 7-Patient Refused. 9-Not Applicable-not attempted and the patient did not perform the activity before the current illness, exacerbation or injury. 10-Not Attempted due to Environmental Limitations-(lack of equipment, weather restraints, etc.). 88-Not Attempted due to Medical Conditions or Safety Concerns. Bed Mobility: 6 Transfers (B,C,W/C): 6 Gait: 6 Stairs: 6 Indoor Mobility (Ambulation): Independent Stairs: Independent Prior Devices Use: None Patient previously on ARU, utilized sit <> stand lift for transfers. PT Evaluation-Current Subjective Patient does not report pain during PT treatment. Noted low-back pain with extended time sitting upright. Pt/Family Goals Return home to family Objective Patient Orientation: Person, Place, Time, Normal For Age Attachments: Other-See Comments (Wound Vac), IV ROM/Strength ROM Upper Extremities See OT ROM Lower Extremities Hip flexion grossly 90 degrees, knee ROM appears functional, ankle ROM not tested secondary to tactile sensitivity Strength Upper Extremities See OT Strength Lower Extremities Knee extension 3-/5, hip flexion 3+/5, no active DF Integumentary/Posture Integumentary See nursing report Posture Kyphotic at EOB Neuromuscular (Tone, Coordination, Reflexes) Grossly low tone, decreased coordination Sensory Vision: Wears Glasses Hearing: Functional Hand Dominance: Right Sensation Right Lower Extremit: Impaired Sensation Left Lower Extremity: Impaired Sensation Lower Extremities Patient with sensory processing issues, does not like feet to be touched Transfers Roll Left to Right (QC): 3 Sit to Lying (QC): 4 Lying to Sitting/Side of Bed(Q: 3 Min A x1 utilized with rolling and lying <> sitting EOB, CGA x1 utilized with sit to lying transfers. Gait Does the Patient Walk?: No and Walking Goal IS indicated Mode of Locomotion: Both Anticipated Mode of Locomotion: Both Walk 10 feet (QC): 88 Walk 50 ft with 2 Turns(QC): 88 Walk 150 ft (QC): 88 Walking 10ft/uneven surface-QC: 88 Comments/Gait Description Patient unable to stand at this time Balance Sitting Static: Fair Sitting Dynamic: Poor Assessment/Needs Patient will benefit from PT interventions to increase impaired strength, ROM, and endurance with functional activities and mobility to decrease caregiver burden upon discharge. Rehab Potential: Fair PT Assembly Member Goals Assembly Member Goals PT Detention Goals Time Frame: Sep 20, 2020 Roll Left & Right (QC): 6 Sit to Lying (QC): 6 Lying-Sitting on Side/Bed(QC): 6 Sit to Stand (QC): 3 Chair/Rvi-mx-Dzecl Xfer(QC): 3 Toilet Transfer (QC): 3 Car Transfer (QC): 3 Does the Patient Walk: No and Walking Goal IS indicated Walk 10 feet (QC): 3 Walk 50ft with 2 Turns (QC): 3 Walk 150 ft (QC): 88 Walking 10ft on Uneven Surface: 3 1 Step (curb) (QC): 2 4 Steps (QC): 88 12 Steps (QC): 88 Picking up an Object (QC): 88 Does the Pt use WC or Scooter?: Yes Wheel 50 feet with 2 turns (QC: 2 Type: Manual Wheel 150 feet: 1 Type: Manual PT LTG established to allow decreased caregiver burden. PT Plan Problem List Problem List: Activity Tolerance, Functional Strength, Safety, Balance, Gait, Transfer, Bed Mobility, ROM Treatment/Plan Treatment Plan: Continue Plan of Care Treatment Plan: Bed Mobility, Education, Functional Activity Héctor, Functional Strength, Gait, Safety, Therapeutic Exercise, Transfers Treatment Duration: Sep 20, 2020 Frequency: 6 times per week Estimated Hrs Per Day: .5 hour per day Patient and/or Family Agrees t: Yes Safety Risks/Education Patient Education: Correct Positioning Teaching Recipient: Patient Teaching Methods: Discussion Response to Teaching: Verbalize Understanding Instructed patient on importance of increasing activity, and allowing pressure relief. Discharge Recommendations Therapy Discharge Recommendati: Post Acute PT Barriers to Progress Debility, motivation, wound, bilateral PF contractures, tactile sensitivity Time/GCodes Time In: 1302 Time Out: 1320 Total Billed Treatment Time: 18 Total Billed Treatment 1 visit: EVH: 18' - Co-eval with OT due to level of assist needed DOMINGA BARCLAY DPT Aug 23, 2020 15:06
[2020-08-23] MEDS: inSUlin ASPART (NovoLOG) 1 UNIT/0.01 ML (CHARGE PER UNIT) SC SCH ×2 (16:03→21:32)
[2020-08-23 16:30] VITALS: BP 132/72
[2020-08-23] MEDS ORDERED: PATIENT MAY USE OWN MED,SINGLE MED PO SCH (18:15)
[2020-08-23] MEDS: REXULTI 0.5 MG PO SCH (18:19)
[2020-08-23 20:14] VITALS: BP 135/85
[2020-08-23] MEDS: ENOXAPARIN 40 MG/0.4 ML (LOVENOX) SYR SC SCH (21:31)
[2020-08-23] MEDS: COLLAGENASE 30 GM (SANTYL) TUBE TP SCH (21:32)
[2020-08-24] VITALS (7 sets, daily range): BP systolic 121–160; BP diastolic 73–99
[2020-08-24] MEDS: NS IV 1000 ML 1,000 ML IV SCH ×4 (01:18→17:41)
[2020-08-24] MEDS: HYDROmorphone 2 MG/ML VIAL (DILAUDID) IVP PRN (01:19)
[2020-08-24 05:42] LABS: MEAN CORPUSCULAR VOLUME 82 fL (80-99); MEAN PLATELET VOLUME 9.2 fL (9.0-12.2)
[2020-08-24 05:44] LABS: BASOPHILS # (AUTO) 0.1 10^3/uL (0.0-0.1); BASOPHILS % (AUTO) 1 % (0-10); EOSINOPHILS # (AUTO) 0.2 10^3/uL (0.0-0.3); EOSINOPHILS % (AUTO) 1 % (0-10); HEMATOCRIT 32 % (40-54); HEMOGLOBIN 10.1 g/dL (13.3-17.7); LYMPHOCYTES % (AUTO) 27 % (12-44); MEAN CORPUSCULAR HEMOGLOBIN 26 pg (25-34); MEAN CORPUSCULAR HGB CONC 32 g/dL (32-36); MONOCYTES # (AUTO) 1.1 10^3/uL (0.0-1.0); MONOCYTES % (AUTO) 10 % (0-12); NEUTROPHILS % (AUTO) 62 % (42-75); PLATELET COUNT 450 10^3/uL (130-400); WHITE BLOOD COUNT 11.3 10^3/uL (4.3-11.0)
[2020-08-24 06:23] LABS: ALBUMIN 3.4 GM/DL (3.2-4.5); CHLORIDE 106 MMOL/L (98-107); SODIUM 135 MMOL/L (135-145)
[2020-08-24 06:24] LABS: CALCIUM 9.1 MG/DL (8.5-10.1)
[2020-08-24 06:25] LABS: GLUCOSE 118 MG/DL (70-105); TOTAL PROTEIN 6.6 GM/DL (6.4-8.2)
[2020-08-24 06:26] LABS: CARBON DIOXIDE 19 MMOL/L (21-32)
[2020-08-24 06:27] LABS: BILIRUBIN,TOTAL 0.3 MG/DL (0.1-1.0)
[2020-08-24 06:29] LABS: ALKALINE PHOSPHATASE 79 U/L (40-136); CREATININE SERUM 0.54 MG/DL (0.60-1.30); GFR ESTIMATED > 60
[2020-08-24 06:30] LABS: BUN/CREATININE RATIO 9
[2020-08-24 06:32] LABS: ALANINE AMINOTRANSFERASE 12 U/L (0-55)
[2020-08-24] MEDS: inSUlin ASPART (NovoLOG) 1 UNIT/0.01 ML (CHARGE PER UNIT) SC SCH ×4 (06:37→20:25)
[2020-08-24] MEDS: PIOGLITAZONE 30MG (ACTOS) TAB PO SCH (08:08)
[2020-08-24] MEDS: GEMFIBROZIL 600 MG (LOPID) TAB PO SCH ×2 (08:08→20:35)
[2020-08-24] MEDS: LORATADINE (CLARITIN) 10 MG TAB PO SCH (08:08)
[2020-08-24] MEDS: MONTELUKAST 10 MG (SINGULAIR) TAB PO SCH (08:09)
[2020-08-24] MEDS: DULoxetine 30 MG (CYMBALTA) CAP PO SCH (08:09)
[2020-08-24] MEDS: meTOprolol TARTRATE 50 MG (LOPRESSOR) TAB PO SCH ×2 (08:12→20:35)
[2020-08-24] MEDS: metFORMIN 500 MG (GLUCOPHAGE) TAB PO SCH ×2 (08:12→17:38)
[2020-08-24] MEDS: MULTIVIT W/MINERALS TAB (THERAGRAN M) PO SCH (08:12)
--- NOTE | 2020-08-24 08:12 | Progress Note - Surgery ---
KADEN SHARMA MED STUDENT 08/24/20 0812: Subjective Date Seen by a Provider: Aug 24, 2020 Time Seen by a Provider: 06:50 Subjective/Events-last exam Patient is asleep in bed this morning but is easily woken States his only pain this morning is his long standing foot pain that he has always had. States that the ulcers on his sacrum, knee and face are causing him no pain and that they seem to be improving. There is some odor in the room. States that LBM was yesterday with no pain or blood. He did PT yesterday, he also got the dressing on his knee changed. He has no questions or concerns this morning. Wound vac ~200mL. Review of Systems General: No Chills HEENT: No Head Aches, No Visual Changes, No Dysphasia Pulmonary: No Dyspnea, No Cough Cardiovascular: No: Chest Pain, Palpitations, Edema Gastrointestinal: No: Nausea, Vomiting, Abdominal Pain Genitourinary: No Dysuria, No Hematuria Musculoskeletal: foot pain; No: leg pain Objective Exam Vital Signs Date Time Temp Pulse Resp B/P (MAP) Pulse Ox O2 Delivery O2 Flow Rate FiO2 08/24/20 04:42 36.2 107 18 121/73 (89) 97 Room Air 08/24/20 00:49 35.7 110 18 137/87 (104) 93 Room Air 08/23/20 20:14 36.1 124 17 135/85 (102) 95 Room Air 08/23/20 20:00 Room Air 08/23/20 18:55 94 Room Air 21 08/23/20 16:30 36.2 115 18 132/72 (92) 97 Room Air 08/23/20 12:00 36.0 100 18 131/79 (96) 99 Room Air I & O 08/24/20 06:59 Intake Total 2965 ml Output Total 2400 ml Balance 565 ml Capillary Refill : General Appearance: No Apparent Distress, Chronically ill, Obese Respiratory: Chest Non Tender, Lungs Clear, Normal Breath Sounds, No Accessory Muscle Use, No Respiratory Distress Cardiovascular: Regular Rate, Rhythm, No Edema, No Murmur Peripheral Pulses: 2+ Radial Pulses (R), 2+ Radial Pulses (L) Gastrointestinal: normal bowel sounds, non tender, soft Extremity: Non Tender, No Calf Tenderness, No Pedal Edema, Other (Decubitus ulcer on L knee. Wrapped in bandage, no leaking noted. ) Neurologic/Psychiatric: Alert, Oriented x3, Depressed Affect, Motor Weakness Skin: Normal Color, Warm/Dry, Other (Grade 4 Decubitus ulcer on sacrum, wound vac in place, some eryhtma at edges. No leaking, draining well.) Lymphatic: No Adenopathy Results Lab Laboratory Tests 08/23/20 11:54: Glucometer 127H 08/23/20 15:47: Glucometer 131H 08/23/20 20:45: Glucometer 139H 08/24/20 05:25: White Blood Count 11.3H, Red Blood Count 3.89L, Hemoglobin 10.1L, Hematocrit 32L , Mean Corpuscular Volume 82, Mean Corpuscular Hemoglobin 26, Mean Corpuscular Hemoglobin Concent 32, Red Cell Distribution Width 14.1, Platelet Count 450H, Mean Platelet Volume 9.2, Immature Granulocyte % (Auto) 1, Neutrophils (%) (Auto) 62, Lymphocytes (%) (Auto) 27, Monocytes (%) (Auto) 10, Eosinophils (%) (Auto) 1, Basophils (%) (Auto) 1, Neutrophils # (Auto) 7.0, Lymphocytes # (Auto) 3.0, Monocytes # (Auto) 1.1H, Eosinophils # (Auto) 0.2, Basophils # (Auto) 0.1, Immature Granulocyte # (Auto) 0.1, Sodium Level 135, Potassium Level 4.0, Chloride Level 106, Carbon Dioxide Level 19L, Anion Gap 10, Blood Urea Nitrogen 5L, Creatinine 0.54L, Estimat Glomerular Filtration Rate > 60, BUN/Creatinine Ratio 9, Glucose Level 118H, Calcium Level 9.1, Corrected Calcium 9.6, Total Bilirubin 0.3, Aspartate Amino Transf (AST/SGOT) 10, Alanine Aminotransferase (ALT/SGPT) 12, Alkaline Phosphatase 79, Total Protein 6.6, Albumin 3.4 Assessment/Plan Assessment/Plan Assessment/Plan S/P Sacral Decubitus ulcer jeffery -Wound VAC change Friday with rep -Will check at that time for more necrotic tissue and asses need for debridement -Continue Pain medication as necessary -Sanofyl for ulcer on knee -Once wound shows signs of healing pt can transfer back to 2nd floor DMII -Continue home medications and glucose checks Anemia -Stable, No change since yesterday -Received a unit of blood a few days ago -Continue to Check daily CBC MARK SANTILLAN DO 08/24/20 1809: Subjective Time Seen by a Provider: 17:42 Subjective/Events-last exam Pt seen and examined, no new changes. There is a foul smell in room. Review of Systems General: No Chills HEENT: No Head Aches, No Visual Changes Pulmonary: No Dyspnea, No Cough Cardiovascular: No: Chest Pain, Palpitations, Edema Gastrointestinal: No: Nausea, Vomiting, Abdominal Pain Musculoskeletal: foot pain; No: leg pain Objective Exam General Appearance: No Apparent Distress, Chronically ill Respiratory: Lungs Clear, Normal Breath Sounds, No Accessory Muscle Use, No Respiratory Distress Cardiovascular: Regular Rate, Rhythm, No Murmur Gastrointestinal: non tender, soft Extremity: Other (Decubitus ulcer on L knee. Wrapped in bandage, no leaking noted. ) Skin: Other (Grade 4 Decubitus ulcer on sacrum, wound vac in place, some eryhtma at edges. No leaking, draining well.) Assessment/Plan Assessment/Plan Assessment/Plan Plan wound VAC change with rep tomorrow; will get recommendations on what to instill with [employer]ra[employer]. Pt may need more debridement. Supervisory-Addendum Brief Verification & Attestation Participated in pt care: history, MDM, physical Personally performed: exam, history, MDM Care discussed with: Medical Student Procedures: n/a Verification and Attestation of Medical Student E/M Service A medical student performed and documented this service. I then reviewed and verified all information documented by the medical student and made modifications to such information, when appropriate. I personally performed a physical exam, medical decision making and then discussed any differences between the notes and made revisions as necessary to create one note. Mark Santillan , 08/24/20 , 18:09 KADEN SHARMA MED STUDENT Aug 24, 2020 08:12 MARK SANTILLAN DO Aug 24, 2020 18:09
[2020-08-24] MEDS: REXULTI 0.5 MG PO SCH (08:14)
[2020-08-24] MEDS: COLLAGENASE 30 GM (SANTYL) TUBE TP SCH ×2 (08:14→20:35)
[2020-08-24] MEDS: ROSUVASTATIN 20 MG (CRESTOR) TABLET PO SCH (09:35)
--- NOTE | 2020-08-24 09:55 | Occupational Ther Daily Note ---
OT Current Status-Daily Note Subjective Pt alert, lying in bed. Nrsg had just finished with bathing pt in bed, assist x2. Pt agrees to therapy. Pt c/o pain in feet. Mental Status/Objective Patient Orientation: Person, Place, Time, Situation Attachments: IV ADL-Treatment Therapy Code Descriptions/Definitions Functional [place] Measure: 0=Not Assessed/NA 4=Minimal Assistance 1=Total Assistance 5=Supervision or Setup 2=Maximal Assistance 6=Modified [place] 3=Moderate Assistance 7=Complete IndependenceSCALE: Activities may be completed with or without assistive devices. 1-Jdsuvimhul-pvlsmjz completes the activity by him/herself with no assistance from a helper. 5-Set-up or Clean-up Assistance-helper sets up or cleans up; patient completes activity. [place] assists only prior to or following the activity. 4-Supervision or Touching Assistance-helper provides verbal cues and/or touching/steadying and/or contact guard assistance as patient completes activity. Assistance may be provided throughout the activity or intermittently. 3-Partial/Moderate Assistance-helper does LESS THAN HALF the effort. [place] lifts, holds or supports trunk or limbs, but provides less than half the effort. 2-Substantial/Maximal Assistance-helper does MORE THAN HALF the effort. [place] lifts or holds trunk or limbs and provides more than half the effort. 6-Dmwpvykef-ycwhlk does ALL the effort. Patient does none of the effort to complete the activity. Or, the assistance of 2 or more helpers is required for the patient to complete the activity. If activity was not attempted, code reason: 7-Patient Refused. 9-Not Applicable-not attempted and the patient did not perform the activity before the current illness, exacerbation or injury. 10-Not Attempted due to Environmental Limitations-(lack of equipment, weather restraints, etc.). 88-Not Attempted due to Medical Conditions or Safety Concerns. Other Treatment Pt able to complete shldr flex exercises against gravity up to 100 degrees 10x's. Elbow flex/ext exercise 10x's, pt unable to start bicep flexion with arm in neutral. With wrist supported in neutral, pt able to squeeze RIVERA's hand with 2-5 digits of R hand and 3-5 digits with L hand. Massage and stretch to wrist and hand to increase PROM of extensor muscles. Slight reddening in web space between 1st and 2nd digit on R hand where splint strap lays, will monitor. After session, pt lying in bed with call light in reach. Nrsg in room. All needs met. OT Short Term Goals Short Term Goals Time Frame: Sep 06, 2020 Eatin Oral hygiene: 4 Toileting hygiene: 3 Shower/bathe self: 3 Upper body dressin Lower body dressin Putting on/taking off footwear: 3 OT [facility] Goals Business Services Manager Goals Time Frame: Sep 27, 2020 Eating (QC): 6 Oral Hygiene (QC): 5 Toileting Hygiene (QC): 4 Shower/Bathe Self (QC): 3 Upper Body Dressing (QC): 4 Lower Body Dressing (QC): 4 On/Off Footwear (QC): 3 Additional Goals: 1-Demonstrate ADL Tasks, 2-Verbalize Understanding, 3- ImproveStrength/Héctor 1=Demonstrate adherence to instructed precautions during ADL tasks. 2=Patient will verbalize/demonstrate understanding of assistive devices/modifications for ADL. 3=Patient will improve strength/tolerance for activity to enable patient to perform ADL's. OT Education/Plan Problem List/Assessment Assessment: Decreased Activ Tolerance, Decreased UE Strength, Dependent Transfers, Impaired Bed Mobility, Impaired Self-Care Skills, Restricted Funct UE ROM Discharge Recommendations Plan/Recommendations: Continue POC Treatment Plan/Plan of Care Patient would benefit from OT for education, treatment and training to promote independence in ADL's, mobility, safety and/or upper extremity function for ADL's. Plan of Care: ADL Retraining, Functional Mobility, UE Funct Exercise/Act Treatment Duration: Sep 27, 2020 Frequency: 5 times per week Estimated Hrs Per Day: .5 hour per day Agreement: Yes Rehab Potential: Fair Time/GCodes Start Time: 09:20 Stop Time: 09:37 Total Time Billed (hr/min): 17 Billed Treatment Time 1 visit-EX 1 (17 min) JAS GARCIA Aug 24, 2020 09:55
--- NOTE | 2020-08-24 12:08 | Progress Note - Hospitalist ---
Subjective HPI/CC On Admission Date Seen by Provider: Aug 24, 2020 Time Seen by Provider: 10:30 CC: Coccyx debridement HPI: This is a 35yoWM transferred from inpatient rehab due to debridement needed for Coccyx decubitus ulcer. Dr. Barakat performed the debridement and at this current time, Pt denies any other issues. PT and OT will be ordered. Acu-checks will be started. Home meds restarted. Wound vac in place. Needs NHP. Subjective/Events-last exam Patient stable Labs reviewed Odor from wound is back Wound specialty facility will be pursued No pain reported right now BM yesterday Review of Systems General: Fatigue, Malaise Objective Exam Vital Signs Vital Signs Date Time Temp Pulse Resp B/P (MAP) Pulse Ox O2 Delivery O2 Flow Rate FiO2 08/25/20 04:03 36.0 112 20 135/86 (102) 96 Room Air 08/24/20 22:23 21 08/22/20 15:15 3 Capillary Refill : General Appearance: No Apparent Distress, WD/WN, Chronically ill, Obese Respiratory: Lungs Clear Cardiovascular: Regular Rate, Rhythm Neurologic/Psychiatric: Alert, Oriented x3, Depressed Affect Results/Procedures Lab Laboratory Tests 08/24/20 05:25 08/25/20 04:10 Patient resulted labs reviewed. Assessment/Plan Assessment and Plan Assess & Plan/Chief Complaint Assessment:: Myopathy COVID-19 PNA 06/03/20 Hypoxia Morbid obesity HTN HLP Developmental delay/autism Decubitus ulcers coccyx and left knee s/p debridement 08/16/20 Dr Santillan and 08/22/20 Dr Barakat wound vac in place Tachycardia consulted Dr Jo-Ann de la rosa hypovolemia so started IVF Plan: Wound care PT OT Home meds Pain meds Needs NHP 08/24/20: Pursue wound care facility? Prognosis guarded Diagnosis/Problems Diagnosis/Problems (1) Decubitus ulcer (2) Morbid obesity Status: Chronic (3) Myopathy (4) COVID-19 HEMANTH DODD DO Aug 24, 2020 12:08
[2020-08-24] MEDS: HYDROcodone/APAP 7.5 MG/325 MG (LORTAB, LORCET PLUS) TABLET PO PRN (15:03)
--- NOTE | 2020-08-24 15:08 | Physical Therapy Daily Note ---
PT Daily Note-Current Subjective Pt in bed, agreeable to participate with therapy. Pain not rated but reports pain at tailbone and (R) hip (positioned on (R) side) Mental Status Patient Orientation: Person, Place, Time, Situation Attachments: Other-See Comments (wound vac), IV Transfers SCALE: Activities may be completed with or without assistive devices. 9-Rduoprakzn-dsjuqrc completes the activity by him/herself with no assistance from a helper. 5-Set-up or Clean-up Assistance-helper sets up or cleans up; patient completes activity. [place] assists only prior to or following the activity. 4-Supervision or Touching Assistance-helper provides verbal cues and/or touching/steadying and/or contact guard assistance as patient completes activity. Assistance may be provided throughout the activity or intermittently. 3-Partial/Moderate Assistance-helper does LESS THAN HALF the effort. [place] lifts, holds or supports trunk or limbs, but provides less than half the effort. 2-Substantial/Maximal Assistance-helper does MORE THAN HALF the effort. [place] lifts or holds trunk or limbs and provides more than half the effort. 3-Crpsygcfb-aahthq does ALL the effort. Patient does none of the effort to complete the activity. Or, the assistance of 2 or more helpers is required for the patient to complete the activity. If activity was not attempted, code reason: 7-Patient Refused. 9-Not Applicable-not attempted and the patient did not perform the activity before the current illness, exacerbation or injury. 10-Not Attempted due to Environmental Limitations-(lack of equipment, weather restraints, etc.). 88-Not Attempted due to Medical Conditions or Safety Concerns. Roll Left & Right (QC): 5 Sit to Lying (QC): 4 Lying to Sitting/Side of Bed(Q: 4 Seat deflated, Pt moved supine<->sit EOB with SBA, HOB elevated slightly. Pt sat EOB, maintaining balance (I) for roughly 15'. Pt sat with flexed posture, occasionally leaning on forearm but able to achieve upright seated posture with VCS. Weight Bearing Right Lower Extremity: Right Weight Bearing/Tolerated Left Lower Extremity: Left Weight Bearing/Tolerated Treatments Transfer, functional activity/sitting tolerance and balance at EOB. Pt returned to bed, positioned on (L) side with call lights in reach, needs met, mattress re-inflated. Assessment Current Status: Good Progress Pt tolerated well. Increased (I) with transfers, improving sitting tolerance. PT Intermediate Goals Human Factors Ergonomist Goals PT Intermediate Goals Time Frame: Sep 20, 2020 Roll Left & Right (QC): 6 Sit to Lying (QC): 6 Lying-Sitting on Side/Bed(QC): 6 Sit to Stand (QC): 3 Chair/Wqf-yi-Guuqx Xfer(QC): 3 Toilet Transfer (QC): 3 Car Transfer (QC): 3 Does the Patient Walk: No and Walking Goal IS indicated Walk 10 feet (QC): 3 Walk 50ft with 2 Turns (QC): 3 Walk 150 ft (QC): 88 Walking 10ft on Uneven Surface: 3 1 Step (curb) (QC): 2 4 Steps (QC): 88 12 Steps (QC): 88 Picking up an Object (QC): 88 Does the Pt use WC or Scooter?: Yes Wheel 50 feet with 2 turns (QC: 2 Type: Manual Wheel 150 feet: 1 Type: Manual PT Plan Problem List Problem List: Activity Tolerance, Functional Strength, Safety, Balance, Gait, Transfer, Bed Mobility, ROM Treatment/Plan Treatment Plan: Continue Plan of Care Treatment Plan: Bed Mobility, Education, Functional Activity Héctor, Functional Strength, Gait, Safety, Therapeutic Exercise, Transfers Treatment Duration: Sep 20, 2020 Frequency: 6 times per week Estimated Hrs Per Day: .5 hour per day Patient and/or Family Agrees t: Yes Time/GCodes Time In: 1437 Time Out: 1500 Total Billed Treatment Time: 23 Total Billed Treatment 1, FA x 23' DOMINGA BARCLAY DPT Aug 24, 2020 15:08
[2020-08-24] MEDS: ENOXAPARIN 40 MG/0.4 ML (LOVENOX) SYR SC SCH (20:35)
[2020-08-25 04:03] VITALS: BP 135/86
[2020-08-25] MEDS: NS IV 1000 ML 1,000 ML IV SCH ×4 (04:03→11:25)
[2020-08-25 04:19] LABS: BASOPHILS # (AUTO) 0.1 10^3/uL (0.0-0.1); BASOPHILS % (AUTO) 0 % (0-10); EOSINOPHILS # (AUTO) 0.1 10^3/uL (0.0-0.3); EOSINOPHILS % (AUTO) 1 % (0-10); HEMATOCRIT 31 % (40-54); LYMPHOCYTES % (AUTO) 26 % (12-44); MEAN CORPUSCULAR HEMOGLOBIN 26 pg (25-34); MEAN CORPUSCULAR HGB CONC 32 g/dL (32-36); MEAN CORPUSCULAR VOLUME 81 fL (80-99); MEAN PLATELET VOLUME 8.3 fL (9.0-12.2); MONOCYTES % (AUTO) 9 % (0-12); NEUTROPHILS # (AUTO) 7.3 10^3/uL (1.8-7.8); NEUTROPHILS % (AUTO) 64 % (42-75); PLATELET COUNT 599 10^3/uL (130-400); WHITE BLOOD COUNT 11.4 10^3/uL (4.3-11.0)
[2020-08-25 04:31] LABS: ALBUMIN 3.5 GM/DL (3.2-4.5); CHLORIDE 106 MMOL/L (98-107); POTASSIUM 3.7 MMOL/L (3.6-5.0); SODIUM 137 MMOL/L (135-145)
[2020-08-25 04:32] LABS: CALCIUM 9.2 MG/DL (8.5-10.1)
[2020-08-25 04:33] LABS: GLUCOSE 125 MG/DL (70-105); TOTAL PROTEIN 6.8 GM/DL (6.4-8.2)
[2020-08-25 04:34] LABS: CARBON DIOXIDE 21 MMOL/L (21-32)
[2020-08-25 04:35] LABS: BILIRUBIN,TOTAL 0.4 MG/DL (0.1-1.0)
[2020-08-25] MEDS: inSUlin ASPART (NovoLOG) 1 UNIT/0.01 ML (CHARGE PER UNIT) SC SCH ×2 (04:36→11:25)
[2020-08-25 04:37] LABS: ALKALINE PHOSPHATASE 80 U/L (40-136); GFR ESTIMATED > 60
[2020-08-25 04:38] LABS: BUN/CREATININE RATIO 8
[2020-08-25 04:40] LABS: ALANINE AMINOTRANSFERASE 13 U/L (0-55)
--- NOTE | 2020-08-25 06:07 | Progress Note - Hospitalist ---
Subjective HPI/CC On Admission Date Seen by Provider: Aug 25, 2020 Time Seen by Provider: 12:00 CC: Coccyx debridement HPI: This is a 35yoWM transferred from inpatient rehab due to debridement needed for Coccyx decubitus ulcer. Dr. Barakat performed the debridement and at this current time, Pt denies any other issues. PT and OT will be ordered. Acu-checks will be started. Home meds restarted. Wound vac in place. Needs NHP. Objective Exam Vital Signs Vital Signs Date Time Temp Pulse Resp B/P (MAP) Pulse Ox O2 Delivery O2 Flow Rate FiO2 08/25/20 15:20 36.6 118 16 125/83 (97) 97 Room Air 08/24/20 22:23 21 08/22/20 15:15 3 Capillary Refill : Results/Procedures Lab Laboratory Tests 08/25/20 04:10 Patient resulted labs reviewed. Assessment/Plan Assessment and Plan Assess & Plan/Chief Complaint Assessment:: Myopathy COVID-19 PNA 06/03/20 Hypoxia Morbid obesity HTN HLP Developmental delay/autism Decubitus ulcers coccyx and left knee s/p debridement 08/16/20 Dr Santillan and 08/22/20 Dr Barakat wound vac in place Tachycardia consulted Dr Jo-Ann de la rosa hypovolemia so started IVF Plan: Wound care PT OT Home meds Pain meds Needs NHP 08/24/20: Pursue wound care facility? Prognosis guarded Diagnosis/Problems Diagnosis/Problems (1) Decubitus ulcer (2) Morbid obesity Status: Chronic (3) Myopathy (4) COVID-19 HEMANTH DODD DO Aug 25, 2020 06:07
[2020-08-25 07:42] VITALS: BP 133/69
[2020-08-25] MEDS: DULoxetine 30 MG (CYMBALTA) CAP PO SCH (09:20)
[2020-08-25] MEDS: meTOprolol TARTRATE 50 MG (LOPRESSOR) TAB PO SCH (09:21)
[2020-08-25] MEDS: PIOGLITAZONE 30MG (ACTOS) TAB PO SCH (09:21)
[2020-08-25] MEDS: metFORMIN 500 MG (GLUCOPHAGE) TAB PO SCH (09:21)
[2020-08-25] MEDS: MONTELUKAST 10 MG (SINGULAIR) TAB PO SCH (09:21)
[2020-08-25] MEDS: GEMFIBROZIL 600 MG (LOPID) TAB PO SCH (09:21)
[2020-08-25] MEDS: MULTIVIT W/MINERALS TAB (THERAGRAN M) PO SCH (09:21)
[2020-08-25] MEDS: COLLAGENASE 30 GM (SANTYL) TUBE TP SCH (09:21)
[2020-08-25] MEDS: LORATADINE (CLARITIN) 10 MG TAB PO SCH (09:21)
[2020-08-25] MEDS: ROSUVASTATIN 20 MG (CRESTOR) TABLET PO SCH (09:24)
[2020-08-25] MEDS: REXULTI 0.5 MG PO SCH (09:35)
--- NOTE | 2020-08-25 10:45 | Physical Therapy Daily Note ---
PT Daily Note-Current Subjective Patient reports unrated pain, constantly weight shifts and winces to relieve pressure from wound vac area when seated. Patient is agreeable to participate in PT. Appearance Pt positioned in R sidelying post tx, with call button within reach and tray table nearby. Mental Status Patient Orientation: Normal For Age Transfers SCALE: Activities may be completed with or without assistive devices. 6-Vnlfawkmci-zcfbmjg completes the activity by him/herself with no assistance from a helper. 5-Set-up or Clean-up Assistance-helper sets up or cleans up; patient completes activity. [place] assists only prior to or following the activity. 4-Supervision or Touching Assistance-helper provides verbal cues and/or touching/steadying and/or contact guard assistance as patient completes activity. Assistance may be provided throughout the activity or intermittently. 3-Partial/Moderate Assistance-helper does LESS THAN HALF the effort. [place] lifts, holds or supports trunk or limbs, but provides less than half the effort. 2-Substantial/Maximal Assistance-helper does MORE THAN HALF the effort. [place] lifts or holds trunk or limbs and provides more than half the effort. 9-Euvvoamva-rdnlto does ALL the effort. Patient does none of the effort to co mplete the activity. Or, the assistance of 2 or more helpers is required for the patient to complete the activity. If activity was not attempted, code reason: 7-Patient Refused. 9-Not Applicable-not attempted and the patient did not perform the activity before the current illness, exacerbation or injury. 10-Not Attempted due to Environmental Limitations-(lack of equipment, weather restraints, etc.). 88-Not Attempted due to Medical Conditions or Safety Concerns. Roll Left & Right (QC): 4 Sit to Lying (QC): 4 Lying to Sitting/Side of Bed(Q: 4 CGA x1. Patient was able to lift legs back into supine position without assistance during sit <-> lying transfer. Sat EOB x 15 min Weight Bearing Right Lower Extremity: Right Weight Bearing/Tolerated Left Lower Extremity: Left Weight Bearing/Tolerated Exercises Seated Therapy Exercises: Long arc quads, Hip flexion, Hip abd/add Seated Reps: 20 Heel slides, 20 reps in seated position; incorporated to improve foot desens itization and LE ROM Assessment Current Status: Fair Progress Patient demonstrated improved exercise tolerance, and demonstrated more self- initiated movement during transfers. Continue to improve patient endurance, strength, and ROM to optimize functional mobility with return to home. PT Snf Goals Career Specialist Goals PT Career Specialist Goals Time Frame: Sep 20, 2020 Roll Left & Right (QC): 6 Sit to Lying (QC): 6 Lying-Sitting on Side/Bed(QC): 6 Sit to Stand (QC): 3 Chair/Uqw-cz-Nxkak Xfer(QC): 3 Toilet Transfer (QC): 3 Car Transfer (QC): 3 Does the Patient Walk: No and Walking Goal IS indicated Walk 10 feet (QC): 3 Walk 50ft with 2 Turns (QC): 3 Walk 150 ft (QC): 88 Walking 10ft on Uneven Surface: 3 1 Step (curb) (QC): 2 4 Steps (QC): 88 12 Steps (QC): 88 Picking up an Object (QC): 88 Does the Pt use WC or Scooter?: Yes Wheel 50 feet with 2 turns (QC: 2 Type: Manual Wheel 150 feet: 1 Type: Manual PT Plan Problem List Problem List: Activity Tolerance, Functional Strength, Safety, Transfer, Bed Mobility, ROM Treatment/Plan Treatment Plan: Continue Plan of Care Treatment Plan: Bed Mobility, Education, Functional Activity Héctor, Functional Strength, Gait, Safety, Therapeutic Exercise, Transfers Treatment Duration: Sep 20, 2020 Frequency: 6 times per week Estimated Hrs Per Day: .5 hour per day Patient and/or Family Agrees t: Yes Time/GCodes Time In: 0835 Time Out: 0858 Total Billed Treatment Time: 23 Total Billed Treatment 1 visit: EX x2: 23' ROSENDA ZHONG PT Aug 25, 2020 10:45
--- NOTE | 2020-08-25 11:14 | Occupational Ther Daily Note ---
OT Current Status-Daily Note Subjective Pt alert, lying in bed. Pt agrees to therapy. Noted redness at webspace between thumb and index finger, reported to nrsg. Pt's wrist splint also has no metal stay to restrict increased L wrist flexion, makeshift stay placed to allow wrist to maintain a more neutral position. Mental Status/Objective Patient Orientation: Person, Place, Time, Situation Attachments: Drains (woundvac), IV ADL-Treatment Pt requested to have hair washed. RIVERA used shampoo cap to wash pt's hair. Assist x2 to scoot pt up in bed. Pt attempted to sit EOB, due to pain in hip unable to complete movement. Therapy Code Descriptions/Definitions Functional [place] Measure: 0=Not Assessed/NA 4=Minimal Assistance 1=Total Assistance 5=Supervision or Setup 2=Maximal Assistance 6=Modified [place] 3=Moderate Assistance 7=Complete IndependenceSCALE: Activities may be completed with or without assistive devices. 3-Yytrelpyju-vsssxbt completes the activity by him/herself with no assistance from a helper. 5-Set-up or Clean-up Assistance-helper sets up or cleans up; patient completes activity. [place] assists only prior to or following the activity. 4-Supervision or Touching Assistance-helper provides verbal cues and/or touching/steadying and/or contact guard assistance as patient completes activity. Assistance may be provided throughout the activity or intermittently. 3-Partial/Moderate Assistance-helper does LESS THAN HALF the effort. [place] lifts, holds or supports trunk or limbs, but provides less than half the effort. 2-Substantial/Maximal Assistance-helper does MORE THAN HALF the effort. [place] lifts or holds trunk or limbs and provides more than half the effort. 3-Tpmfzefnl-fzsdey does ALL the effort. Patient does none of the effort to complete the activity. Or, the assistance of 2 or more helpers is required for the patient to complete the activity. If activity was not attempted, code reason: 7-Patient Refused. 9-Not Applicable-not attempted and the patient did not perform the activity before the current illness, exacerbation or injury. 10-Not Attempted due to Environmental Limitations-(lack of equipment, weather restraints, etc.). 88-Not Attempted due to Medical Conditions or Safety Concerns. Other Treatment Slight active finger extension noted in B hands. No muscle movement noted with wrist flexion during muscle facilitation techniques. Pt able to complete slight supination and fair pronation in B UE's. Pt given light resistance theraband and placed on bedrails for bicep curls and tricep extensions. Pt completed 3 sets 10 reps of each. After therapy, pt lying in bed on R side with call light/phone in reach. All needs met in room. OT Short Term Goals Short Term Goals Time Frame: Sep 06, 2020 Eatin Oral hygiene: 4 Toileting hygiene: 3 Shower/bathe self: 3 Upper body dressin Lower body dressin Putting on/taking off footwear: 3 OT Web Press Operator Assistant Goals Care Home Goals Time Frame: Sep 27, 2020 Eating (QC): 6 Oral Hygiene (QC): 5 Toileting Hygiene (QC): 4 Shower/Bathe Self (QC): 3 Upper Body Dressing (QC): 4 Lower Body Dressing (QC): 4 On/Off Footwear (QC): 3 Additional Goals: 1-Demonstrate ADL Tasks, 2-Verbalize Understanding, 3- ImproveStrength/Héctor 1=Demonstrate adherence to instructed precautions during ADL tasks. 2=Patient will verbalize/demonstrate understanding of assistive devices/modifications for ADL. 3=Patient will improve strength/tolerance for activity to enable patient to perform ADL's. OT Education/Plan Problem List/Assessment Assessment: Decreased Activ Tolerance, Decreased UE Strength, Impaired Self- Care Skills, Restricted Funct UE ROM Discharge Recommendations Plan/Recommendations: Continue POC Treatment Plan/Plan of Care Patient would benefit from OT for education, treatment and training to promote independence in ADL's, mobility, safety and/or upper extremity function for ADL's. Plan of Care: ADL Retraining, Functional Mobility, UE Funct Exercise/Act Treatment Duration: Sep 27, 2020 Frequency: 5 times per week Estimated Hrs Per Day: .5 hour per day Agreement: Yes Rehab Potential: Fair Time/GCodes Start Time: 10:15 Stop Time: 11:00 Total Time Billed (hr/min): 45 Billed Treatment Time 1 visit-EX 1 (15 min) FA 2 (30 min) JAS GARCIA Aug 25, 2020 11:14
[2020-08-25] MEDS: HYDROcodone/APAP 7.5 MG/325 MG (LORTAB, LORCET PLUS) TABLET PO PRN (11:34)
[2020-08-25] MEDS ORDERED: OXC5T PO (12:07)
[2020-08-25] MEDS ORDERED: HYDR-34 PO (12:07)
[2020-08-25] MEDS ORDERED: INSU100V16 SC (12:07)
[2020-08-25] MEDS ORDERED: ONDA2VIACC IVP (12:07)
[2020-08-25] MEDS ORDERED: HYDR2VIA2 IVP (12:07)
[2020-08-25] MEDS ORDERED: ENOX40DI8 SC (12:07)
--- NOTE | 2020-08-25 12:08 | Discharge Summary ---
Discharge Summary Hospital Course Was the Problem List Reviewed?: Yes Problems/Dx: (1) Decubitus ulcer (2) Morbid obesity Status: Chronic (3) Myopathy (4) COVID-19 Hospital Course Date of Admission: Aug 22, 2020 at 18:05 Admission Diagnosis : [facility]: [facility]20 Discharge Diagnosis: Severe coccyx decubitus ulcer s/p 2 debridement, s/p COVID 06/04/20 [facility] Hospital Course: Short 4th floor med surg course after moving from [facility] due to worsening decubitus ulcer. Wound vac placed and patient tolerated well. Wound continued to drain odorous drainage and the decision was made to move back to [place] for wound care and therapy. Labs and Pending Lab Test: Laboratory Tests 08/24/20 15:50: Glucometer 123H 08/24/20 20:09: Glucometer 117H 08/25/20 04:10: White Blood Count 11.4H, Red Blood Count 3.84L, Hemoglobin 10.0L, Hematocrit 31L , Mean Corpuscular Volume 81, Mean Corpuscular Hemoglobin 26, Mean Corpuscular Hemoglobin Concent 32, Red Cell Distribution Width 14.1, Platelet Count 599H, Mean Platelet Volume 8.3L, Immature Granulocyte % (Auto) 0, Neutrophils (%) (Auto) 64, Lymphocytes (%) (Auto) 26, Monocytes (%) (Auto) 9, Eosinophils (%) (Auto) 1, Basophils (%) (Auto) 0, Neutrophils # (Auto) 7.3, Lymphocytes # (Auto) 3.0, Monocytes # (Auto) 1.0, Eosinophils # (Auto) 0.1, Basophils # (Auto) 0.1, Immature Granulocyte # (Auto) 0.1, Sodium Level 137, Potassium Level 3.7, Chloride Level 106, Carbon Dioxide Level 21, Anion Gap 10, Blood Urea Nitrogen 4L, Creatinine 0.50L, Estimat Glomerular Filtration Rate > 60, BUN/Creatinine Ratio 8, Glucose Level 125H, Calcium Level 9.2, Corrected Calcium 9.6, Total Bilirubin 0.4, Aspartate Amino Transf (AST/SGOT) 14, Alanine Aminotransferase (ALT/SGPT) 13, Alkaline Phosphatase 80, Total Protein 6.8, Albumin 3.5 08/25/20 10:52: Glucometer 131H Home Meds Active Reported Ventolin Hfa (Albuterol Sulfate) 18 Gm Hfa.aer.ad 2 Puff INH Q6H PRN Invokamet Xr 50-1,000 mg Tab (Canagliflozin/Metformin HCl) 1 Each Tab.bp.24h 2 Each PO DAILY Rexulti (Brexpiprazole) 0.5 Mg Tablet 0.5 Mg PO DAILY Rosuvastatin Calcium 20 Mg Tablet 20 Mg PO DAILY Trulicity (Dulaglutide) 0.75 Mg/0.5 Ml Pen.injctr 0.75 Mg SQ FRI Pioglitazone HCl 30 Mg Tablet 30 Mg PO DAILY Cetirizine HCl 10 Mg Tablet 10 Mg PO DAILY Montelukast Sodium 10 Mg Tablet 10 Mg PO DAILY Gemfibrozil 600 Mg Tablet 600 Mg PO BID Hydrochlorothiazide 50 Mg Tablet 50 Mg PO DAILY Ibuprofen 200 Mg Capsule 400 Mg PO Q6H PRN Tylenol (Acetaminophen) 325 Mg Capsule 650 Mg PO Q6H PRN Thera-M Caplet (Multivit,Ther Iron,Ca,FA & Min) 1 Each Tablet 1 Each PO DAILY Metoprolol Tartrate 50 Mg Tablet 50 Mg PO BID Neurontin (Gabapentin) 300 Mg Capsule 300 Mg PO TID PRN Duloxetine HCl 60 Mg Capsule.dr 120 Mg PO DAILY TAKES 2 (60MG) CAPS Assessment/Pt Instructions [place] Discharge Planning: <30 minutes discharge planning Discharge Instructions Discharge Diet: No Restrictions Activity as Tolerated: Yes Discharge Physical Examination Vital Signs Vital Signs Date Time Temp Pulse Resp B/P (MAP) Pulse Ox O2 Delivery O2 Flow Rate FiO2 08/25/20 07:42 36.6 114 16 133/69 (90) 97 Room Air 08/24/20 22:23 21 08/22/20 15:15 3 General Appearance: No Apparent Distress, WD/WN Respiratory: Lungs Clear Cardiovascular: Regular Rate, Rhythm Allergies: Coded Allergies: No Known Drug Allergies (Unverified , 06/08/20) Discharge Summary Date of Admission Aug 22, 2020 at 18:05 Date of Discharge Discharge Date: Aug 25, 2020 Admission Diagnosis Assessment:: Myopathy COVID-19 PNA 06/03/20 Hypoxia Morbid obesity HTN HLP Developmental delay/autism Decubitus ulcers coccyx and left knee s/p debridement 08/16/20 Dr Santillan and 08/22/20 Dr Barakat Tachycardia consulted Dr Busch dx hypovolemia so started IVF Plan: Wound care PT OT Home meds Pain meds Needs NHP Discharge Diagnosis Assessment:: Myopathy COVID-19 PNA 06/03/20 Hypoxia Morbid obesity HTN HLP Developmental delay/autism Decubitus ulcers coccyx and left knee s/p debridement 08/16/20 Dr Santillan and 08/22/20 Dr Barakat wound vac in place Tachycardia consulted Dr Jo-Ann de la rosa hypovolemia so started IVF Plan: Wound care PT OT Home meds Pain meds Needs NHP 08/24/20: Pursue wound care facility? Prognosis guarded (1) Decubitus ulcer (2) Morbid obesity Status: Chronic (3) Myopathy (4) COVID-19 HEMANTH DODD DO Aug 25, 2020 12:08
[2020-08-25] MEDS: HYDROmorphone 2 MG/ML VIAL (DILAUDID) IVP PRN (13:53)
[2020-08-25 15:20] VITALS: BP 125/83
[2020-08-25 15:45] VITALS: BP 125/83
== END 2020-08-25 15:45 | DRG 580 ==
LOC: SDC 08:11 → 4TH 16:34 → SDC 18:04 → 4TH 18:05
PROVIDERS: ADMIT Internal Medicine; ATTEND Surgery
PROC: 0QB10ZZ Excision of Sacrum, Open Approach (ICD-10-PCS; principal; 2020-08-22 13:57)
DX: L89.154 Pressure ulcer of sacral region, stage 4 (principal); F84.0 Autistic disorder; L89.819 Pressure ulcer of head, unspecified stage; L89.899 Pressure ulcer of other site, unspecified stage; E11.8 Type 2 diabetes mellitus with unspecified complications; G72.9 Myopathy, unspecified; E66.01 Morbid (severe) obesity due to excess calories; K59.00 Constipation, unspecified; D64.9 Anemia, unspecified; E78.00 Pure hypercholesterolemia, unspecified; I10 Essential (primary) hypertension; M21.372 Foot drop, left foot; M21.371 Foot drop, right foot; M21.332 Wrist drop, left wrist; M21.331 Wrist drop, right wrist; F32.9 Major depressive disorder, single episode, unspecified; Z68.38 Body mass index [BMI] 38.0-38.9, adult; Z79.4 Long term (current) use of insulin; Z86.16 Personal history of COVID-19; Z82.49 Family history of ischemic heart disease and other diseases of the circulatory system
CPT/HCPCS: 36415; 80053; 82962; 85025; 88304

== ENCOUNTER → 2020-10-02 | Outpatient (CLI) | payer MEDICARE, MEDICAID ==
[~2020-10-02] MED LIST changes: +ENOX40DI8 SC; +HYDR-34 PO; +HYDR2VIA2 IVP; +ONDA2VIACC IVP; +OXC5T PO
== END ==
LOC: WOUNDCARE 09:03
PROVIDERS: ATTEND Surgery
DX: U07.1 COVID-19 (principal); L89.154 Pressure ulcer of sacral region, stage 4; L89.893 Pressure ulcer of other site, stage 3; G82.22 Paraplegia, incomplete; E11.622 Type 2 diabetes mellitus with other skin ulcer
CPT/HCPCS: 11042; 11045; A6212; G0463

== ENCOUNTER → 2020-10-03 | Outpatient (CLI) | payer MEDICARE, MEDICAID ==
[2020-10-03 13:20] VITALS: BP 111/71
== END ==
LOC: SDC 13:16
PROVIDERS: ATTEND Internal Medicine
DX: M86.9 Osteomyelitis, unspecified (principal); L89.154 Pressure ulcer of sacral region, stage 4; L89.894 Pressure ulcer of other site, stage 4; F84.0 Autistic disorder
CPT/HCPCS: 36569; 76937; C1751

== ENCOUNTER → 2020-10-16 | Outpatient (CLI) | payer MEDICARE, MEDICAID | LOC: WOUNDCARE 12:36 | PROVIDERS: ATTEND Surgery | DX: E11.52 Type 2 diabetes mellitus with diabetic peripheral angiopathy with gangrene (principal); E11.622 Type 2 diabetes mellitus with other skin ulcer; I96 Gangrene, not elsewhere classified; U07.1 COVID-19; L89.893 Pressure ulcer of other site, stage 3; L89.154 Pressure ulcer of sacral region, stage 4; G82.22 Paraplegia, incomplete | CPT/HCPCS: 11042; G0463 ==

== ENCOUNTER → 2020-10-23 | Outpatient (CLI) | payer MEDICARE, MEDICAID | LOC: WOUNDCARE 10:35 | PROVIDERS: ATTEND Surgery | DX: L89.154 Pressure ulcer of sacral region, stage 4 (principal); L89.893 Pressure ulcer of other site, stage 3; G82.21 Paraplegia, complete; U07.1 COVID-19; E11.622 Type 2 diabetes mellitus with other skin ulcer; E11.52 Type 2 diabetes mellitus with diabetic peripheral angiopathy with gangrene | CPT/HCPCS: 11042; A6212; G0463 ==

== ENCOUNTER → 2020-11-13 | Outpatient (CLI) | payer MEDICARE, MEDICAID | LOC: WOUNDCARE 10:23 | PROVIDERS: ATTEND Surgery | DX: L89.154 Pressure ulcer of sacral region, stage 4 (principal); L89.893 Pressure ulcer of other site, stage 3; G82.21 Paraplegia, complete; U07.1 COVID-19; E11.622 Type 2 diabetes mellitus with other skin ulcer; E11.52 Type 2 diabetes mellitus with diabetic peripheral angiopathy with gangrene | CPT/HCPCS: 11042; A6212; G0463 ==

== ENCOUNTER → 2020-11-20 | Outpatient (CLI) | payer MEDICARE, MEDICAID | LOC: WOUNDCARE 10:38 | PROVIDERS: ATTEND Surgery | DX: L89.154 Pressure ulcer of sacral region, stage 4 (principal); L89.893 Pressure ulcer of other site, stage 3; G82.21 Paraplegia, complete; U07.1 COVID-19; E11.622 Type 2 diabetes mellitus with other skin ulcer; E11.52 Type 2 diabetes mellitus with diabetic peripheral angiopathy with gangrene | CPT/HCPCS: 11042; G0463 ==

== ENCOUNTER → 2020-11-27 | Outpatient (CLI) | payer MEDICARE, MEDICAID | LOC: WOUNDCARE 10:47 | PROVIDERS: ATTEND Surgery | DX: U07.1 COVID-19 (principal); I96 Gangrene, not elsewhere classified; L89.154 Pressure ulcer of sacral region, stage 4; L89.893 Pressure ulcer of other site, stage 3; G82.21 Paraplegia, complete; E11.622 Type 2 diabetes mellitus with other skin ulcer | CPT/HCPCS: 11042; A6212; G0463 ==

== ENCOUNTER → 2020-12-11 | Outpatient (CLI) | payer MEDICARE, MEDICAID | LOC: WOUNDCARE 10:32 | PROVIDERS: ATTEND Surgery | DX: U07.1 COVID-19 (principal); L92.8 Other granulomatous disorders of the skin and subcutaneous tissue; I96 Gangrene, not elsewhere classified; L89.154 Pressure ulcer of sacral region, stage 4; L89.893 Pressure ulcer of other site, stage 3; G82.20 Paraplegia, unspecified; E11.622 Type 2 diabetes mellitus with other skin ulcer | CPT/HCPCS: 17250; G0463 ==

== ENCOUNTER → 2020-12-18 | Outpatient (CLI) | payer MEDICARE, MEDICAID | LOC: WOUNDCARE 10:30 | PROVIDERS: ATTEND Surgery | DX: L92.8 Other granulomatous disorders of the skin and subcutaneous tissue (principal); L89.154 Pressure ulcer of sacral region, stage 4; L89.893 Pressure ulcer of other site, stage 3; G82.21 Paraplegia, complete; U07.1 COVID-19; E11.622 Type 2 diabetes mellitus with other skin ulcer | CPT/HCPCS: 99212 ==

== ENCOUNTER → 2021-02-09 | Outpatient (CLI) | payer MEDICARE, MEDICAID ==
--- NOTE | 2021-02-09 14:56 | Diagnostic Imaging Report ---
PROCEDURE: MR imaging cervical spine without contrast. TECHNIQUE: Multiplanar, multisequence MR imaging of the cervical spine was performed without contrast. DATE: February 09, 2021. COMPARISON: None. INDICATION: 35-year-old male, numbness and limited use of the upper extremities and legs. History of prior COVID 19 infection requiring respiratory support. FINDINGS: The alignment of the cervical spine is grossly unremarkable. There is no evidence of a diffuse marrow infiltrating or replacing process. There is no focal concerning bone lesion. The visualized spinal cord is unremarkable. The disc heights are well preserved. There is a 2.1 cm heterogeneous signal left thyroid nodule and a similar appearing right thyroid nodule measuring 1.1 cm in size. C2-C3: There is no disc bulge. The uncovertebral and facet joints are unremarkable. There is no foraminal narrowing. There is no spinal canal stenosis. C3-C4: There is no disc bulge. The uncovertebral and facet joints are unremarkable. There is no foraminal narrowing. There is no spinal canal stenosis. C4-C5: There is no disc bulge. The uncovertebral and facet joints are unremarkable. There is no foraminal narrowing. There is no spinal canal stenosis. C5-C6: There is a very small posterior disc aspect complexes. The uncovertebral and facet joints are unremarkable. There is no foraminal narrowing. There is mild spinal canal stenosis. C6-C7: There is a very small posterior disc osteophyte complex. There are bilateral perineural cysts measuring up to approximately 7 mm in size. The uncovertebral and facet joints are unremarkable. There is no foraminal narrowing. There is mild spinal canal stenosis. C7-T1: There is no disc bulge. The uncovertebral and facet joints are unremarkable. There is no foraminal narrowing. There is no spinal canal stenosis. IMPRESSION: 1. Small posterior disc osteophyte complexes at C5-C6 and C6-C7 with mild spinal stenosis at both levels. 2. No abnormal cord signal. 3. Indeterminate bilateral thyroid nodules with the largest on the left measuring 2.1 cm in size. Recommend thyroid ultrasound for further evaluation. Dictated by: Dictated on workstation # [id number]
--- NOTE | 2021-02-09 15:12 | Diagnostic Imaging Report ---
PROCEDURE: MRI lumbar spine. TECHNIQUE: Multiplanar, multisequence MRI of the lumbar spine was performed without contrast. INDICATION: Numbness and weakness. COMPARISON: 05/14/2007 and 09/08/2015. FINDINGS: Five lumbar type vertebral bodies are present. Severe apex right curvature of the thoracolumbar spine is noted. L4 is positioned to the left in relationship to L3. No significant anterolisthesis or retrolisthesis. Vertebral body height loss is noted along the internal curvature of the spine within the mid lumbar spine. Scattered endplate degenerative changes are present, including degenerative marrow edema at L3/L4 and mildly at L5/S1. No additional suspicious bone marrow signal abnormality. The conus medullaris terminates the appropriate location. Small synovial cyst is noted associated with the right L5/S1 facet joint extending posterolaterally into the paraspinal musculature. Otherwise, The paraspinal soft tissues are unremarkable. T12/L1: Mild facet joint degenerative changes. No significant central canal or neural foraminal stenosis. L1/L2: Mild disc space height loss, particularly on the left. Moderate left and mild right facet joint degenerative changes. Tiny diffuse disc bulge, eccentric to the left. There is resulting minimal central canal stenosis, particularly on the left. No significant neural foraminal stenosis. L2/L3: Advanced facet joint degenerative changes. Ligamentum flavum hypertrophy. Mild disc space height loss on the left. Tiny left paracentral to foraminal disc protrusion. There is resulting moderate central canal stenosis with particular effacement of the left lateral recess. No significant neural foraminal stenosis. L3/L4: Moderate disc space height loss. Severe facet joint degenerative changes. Ligamentum flavum hypertrophy. Diffuse disc osteophyte complex. There is resulting severe central canal stenosis with effacement of bilateral lateral recesses. Mild bilateral neural foraminal stenosis. L4/L5: Moderate right and mild left facet joint degenerative changes. Ligamentum flavum hypertrophy. Tiny diffuse disc bulge, eccentric to the right. There is resulting moderate to severe central canal stenosis with severe effacement of the right lateral recess. Mild to moderate bilateral neural foraminal stenosis. L5/S1: Moderate disc space height loss. Mild facet joint degenerative changes. Small diffuse disc bulge. There is resulting minimal central canal stenosis with moderate bilateral neural foraminal stenosis. IMPRESSION: No acute osseous abnormality with significant apex right curvature of the thoracolumbar spine with advanced multilevel degenerative changes, as described above. There is resulting multilevel central canal and neural foraminal stenosis, including severe central canal stenosis at the L3/L4 level and moderate to severe central canal stenosis within the L4/L5 level. Dictated by: Dictated on workstation # [id number]
== END ==
LOC: RAD 13:15
PROVIDERS: ATTEND Pediatrics
DX: M48.07 Spinal stenosis, lumbosacral region (principal); M47.897 Other spondylosis, lumbosacral region; M48.02 Spinal stenosis, cervical region; M25.78 Osteophyte, vertebrae; E04.1 Nontoxic single thyroid nodule; M21.331 Wrist drop, right wrist
CPT/HCPCS: 72141; 72148

== ENCOUNTER 2021-02-22 16:43 | Outpatient (RCR) | payer MEDICARE, MEDICAID ==
[~2021-02-22 16:43] MED LIST changes: -DCS100C PO; +DOCU-239 PO; -QUET25TA34 PO; +QUET25TA35 PO
== END 2021-03-12 11:55 | disposition home or self-care (01) ==
PROVIDERS: ATTEND Internal Medicine
DX: B94.8 Sequelae of other specified infectious and parasitic diseases (principal); M21.379 Foot drop, unspecified foot; R53.1 Weakness; M21.332 Wrist drop, left wrist; M21.331 Wrist drop, right wrist; E11.9 Type 2 diabetes mellitus without complications; I10 Essential (primary) hypertension

== ENCOUNTER → 2021-03-15 | Outpatient (CLI) | payer MEDICARE, MEDICAID ==
[~2021-03-15] VITALS: Ht 72 cm; Wt 125.0 kg
[~2021-03-15] MED LIST changes: +LIDOCAINE 1% INJ 20 ML 20 ML VIAL INJ ONE
--- NOTE | 2021-03-15 18:06 | Diagnostic Imaging Report ---
INDICATION: Right lobe thyroid nodule. Patient presents for ultrasound-guided fine-needle aspiration and biopsy. FINDINGS: Patient was brought to the procedure room and placed on table in the supine position. Ultrasound imaging of the right neck was performed to evaluate appropriate entry site. Right neck was then prepped and draped in the usual sterile fashion. Small amount of 1% lidocaine was utilized for local anesthesia. A total of four passes were made into the dominant hypoechoic nodule in the mid right lobe of the thyroid utilizing 25-gauge needles and fine-needle aspiration technique. A single pass was made with a Rotex needle and Rotex biopsy was performed. [place] were removed and hemostasis was obtained. Patient tolerated the procedure well. IMPRESSION: Successful ultrasound-guided fine-needle aspiration and Rotex biopsy of right lobe dominant thyroid nodule. Pathology results are currently pending. Dictated by: Dictated on workstation # [id number]
--- NOTE | 2021-03-15 18:08 | Diagnostic Imaging Report ---
INDICATION: Left lobe thyroid nodule. Patient presents for ultrasound-guided fine-needle aspiration and biopsy. Patient was brought to the procedure room and placed on the table in the supine position. Ultrasound imaging of the left neck was performed to evaluate appropriate entry site. Left neck was then prepped and draped in the usual sterile fashion. A small amount of 1% lidocaine was utilized for local anesthesia. A total of four passes were made into the dominant solid nodule in the mid left lobe of the thyroid utilizing 25-gauge needles and fine-needle aspiration technique. A single pass was made with a Rotex needle, and a Rotex biopsy was performed. [place] were removed, and hemostasis was obtained. Patient tolerated the procedure well and left the department in stable condition. IMPRESSION: Successful ultrasound-guided fine-needle aspiration and Rotex biopsy of dominant left lobe thyroid nodule. Pathology results are currently pending. Dictated by: Dictated on workstation # [id number]
== END ==
LOC: RAD 14:00
PROVIDERS: ATTEND Pediatrics
DX: E04.1 Nontoxic single thyroid nodule (principal)
CPT/HCPCS: 10005; 10006

== ENCOUNTER 2022-08-09 10:22 | Inpatient (IN) | payer MEDICARE, MEDICAID ==
[~2022-08-09] VITALS: Ht 182.9 cm; Wt 131.3 kg
[~2022-08-09 10:22] MED LIST changes: +HYDR20VI17 IV; -HYDR20VI7 IV; +HYDR2VIA IVP; -HYDR2VIA2 IVP; -LIDOCAINE 1% INJ 20 ML 20 ML VIAL INJ ONE; +MONT-40 PO; -MONT10TA32 PO
[2022-08-09] MEDS ORDERED: PREG75CA75 PO (11:19)
[2022-08-09] MEDS ORDERED: LORA10TA7 PO (11:19)
[2022-08-09] MEDS ORDERED: SEMA7TAB2 PO (11:19)
[2022-08-09] MEDS ORDERED: MULT-1136 PO (11:19)
[2022-08-09] MEDS ORDERED: OMEP20CA18 PO (11:19)
[2022-08-09] MEDS ORDERED: METF-399 PO (11:19)
[2022-08-09] MEDS ORDERED: ATOR40TA70 PO (11:19)
--- NOTE | 2022-08-09 12:24 | PM&R Post Admission Assessment ---
PM&R Date of Visit: Aug 09, 2022 Time of Visit: 13:00 History of Present Illness CC: Debility following lumbar spine and scoliosis surgery by Dr Altamirano for lumbar myelopathy HPI: This is a 36yoWM clinic patient of [facility] who presents to the ARU in need of recovery following extensive spine surgery at [facility] by Dr Altamirano. He is currently doing well but having slow recovery due to co-morbidities. Home meds restarted along with pain meds. BM+. Received 1 unit of blood post op. Reviewed last admit on ARU. PLOF was independent but lives with parents. Patient appears to be pale and anemia so will check labs in am. Voiding well. ADAL drain can be remove Friday if not sooner as long as less than 50cc over 8 hours. Past Wnsqwok-Xhteab-Eeifmu Hx Past Med/Social Hx: Reviewed Nursing Past Med/Soc Hx, Reviewed and Corrections made Patient Social History Marrital Status: single Employed/Student: unemployed Alcohol Use: Denies Use Smoking Status: Never a Smoker 2nd Hand Smoke Exposure: No Recent Hopitalizations: Yes (Recently released from [facility] following COVID infection. ) Immunizations Up To Date Tetanus Booster (TDap): Unknown Date of Influenza Vaccine: Feb 21, 2020 Seasonal Allergies Seasonal Allergies: No Past Medical History Surgeries: Orthopedic Respiratory: Sleep Apnea COVID 06/2020 Currently Using CPAP: No Currently Using BIPAP: No Cardiac: High Cholesterol, Hypertension Neurological: Developmental Disorder Reproductive: No Musculoskeletal: Foot Drop, Contracture Endocrine: Diabetes, Insulin dep Loss of Vision: Denies Hearing Impairment: Denies Psychosocial: Depression History of Blood Disorders: No Family History Hypertension, Other Conditions/Hx Occupation: unemployed PM&R Allergy/Meds/Data Review Allergies Coded Allergies: No Known Drug Allergies (Unverified , 06/08/20) Home Medications Scheduled Atorvastatin Calcium (Atorvastatin Calcium), 40 MG PO HS, (Reported) Brexpiprazole (Rexulti), 0.5 MG PO DAILY, (Reported) Duloxetine HCl (Duloxetine HCl), 120 MG PO DAILY, (Reported) Loratadine (Loratadine), 10 MG PO DAILY, (Reported) Metformin HCl (Metformin HCl), 1,000 MG PO BID WITH MEALS, (Reported) Metoprolol Tartrate (Metoprolol Tartrate), 50 MG PO BID WITH MEALS, (Reported) Multivitamin (Multivitamin), 1 EACH PO DAILY, (Reported) Omeprazole (Omeprazole), 20 MG PO DAILY, (Reported) Pregabalin (Pregabalin), 75 MG PO BID, (Reported) Semaglutide (Rybelsus), 7 MG PO DAILY, (Reported) Discontinued Medications Acetaminophen (Tylenol), 650 MG PO Q6H PRN for PAIN-MILD (1-4) OR TEMPATURE, (Reported) Discontinued Reason: No Longer Taking Albuterol Sulfate (Ventolin Hfa), 2 PUFF INH Q6H PRN for SHORTNESS OF BREATH, (Reported) Discontinued Reason: No Longer Taking Canagliflozin/Metformin HCl (Invokamet Xr 50-1,000 mg Tab), 2 EACH PO DAILY, (Reported) Discontinued Reason: No Longer Taking Cetirizine HCl (Cetirizine HCl), 10 MG PO DAILY, (Reported) Discontinued Reason: No Longer Taking Dulaglutide (Trulicity), 0.75 MG SQ FRI, (Reported) Discontinued Reason: No Longer Taking Enoxaparin Sodium (Enoxaparin Sodium), 40 MG SC Q24H Discontinued Reason: No Longer Taking Gabapentin (Neurontin), 300 MG PO TID PRN for PAIN-BREAKTHROUGH, (Reported) Discontinued Reason: No Longer Taking Gemfibrozil (Gemfibrozil), 600 MG PO BID, (Reported) Discontinued Reason: No Longer Taking Hydrocodone Bit/Acetaminophen (HYDROcodone/APAP 7.5/325 TAB), 1 EA PO Q4H PRN for PAIN-MODERATE (5-7) Discontinued Reason: No Longer Taking Hydromorphone HCl (Hydromorphone HCl), 0.25 MG IVP Q2HR PRN for PAIN-SEVERE (8- 10) Discontinued Reason: No Longer Taking Insulin Aspart (Novolog), 0 UNIT SC ACHS Discontinued Reason: No Longer Taking Montelukast Sodium (Montelukast Sodium), 10 MG PO DAILY, (Reported) Discontinued Reason: No Longer Taking Multivit,Ther Iron,Ca,FA & Min (Thera-M Caplet), 1 EACH PO DAILY, (Reported) Discontinued Reason: No Longer Taking Ondansetron HCl/Pf (Ondansetron HCl 4 mg/2 ml Vial), 4 MG IVP Q10M PRN for NAUSEA/VOMITING-1ST LINE Discontinued Reason: No Longer Taking Oxycodone Hcl (Oxyir Tablet), 5 MG PO Q4H PRN for PAIN-SEVERE (8-10) Discontinued Reason: No Longer Taking Pioglitazone HCl (Pioglitazone HCl), 30 MG PO DAILY, (Reported) Discontinued Reason: No Longer Taking Rosuvastatin Calcium (Rosuvastatin Calcium), 20 MG PO DAILY, (Reported) Discontinued Reason: No Longer Taking Current Medications Current Medications Reviewed Review of Systems Constitutional: see HPI, malaise, weakness EENTM: no symptoms reported Respiratory: no symptoms reported Cardiovascular: no symptoms reported Gastrointestinal: no symptoms reported Genitourinary: no symptoms reported Musculoskeletal: back pain Skin: no symptoms reported Psychiatric/Neurological: Depressed All Other Systems Reviewed Negative Unless Noted: Yes Physical Exam Physical Exam Vital Signs Capillary Refill : Height, Weight, BMI Height: 6'0.00" Weight: 360lbs. 0.0oz. [id number]; 241.12 BMI Method: General Appearance: No Apparent Distress, WD/WN, Chronically ill, Obese Eyes: Bilateral Eye Normal Inspection, Bilateral Eye PERRL HEENT: PERRL/EOMI, Normal ENT Inspection, Pharynx Normal Neck: Full Range of Motion, Normal Inspection, Non Tender, Supple, Carotid Bruit Respiratory: Chest Non Tender, Lungs Clear, Normal Breath Sounds, No Accessory Muscle Use, No Respiratory Distress Cardiovascular: Regular Rate, Rhythm, No Edema, No Gallop, No JVD, No Murmur, Normal Peripheral Pulses Gastrointestinal: Normal Bowel Sounds, No Organomegaly, No Pulsatile Mass, Non Tender, Soft Back: Normal Inspection, CVA Tenderness (L), CVA Tenderness (R), Decreased Range of Motion, Vertebral Tenderness Extremity: Normal Capillary Refill, Normal Inspection, Normal Range of Motion, Non Tender, No Calf Tenderness, No Pedal Edema Neurologic/Psychiatric: Alert, Oriented x3, 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 Norm as Tested, Abnormal Gait, Depressed Affect, Motor Weakness (generalized but lower extremities are very weak) Skin: Normal Color, Warm/Dry Lymphatic: No Adenopathy PM&R Medical Assessment & Plan REHAB/MEDICAL ASSESSMENT AND PLAN: REHAB IMPAIRMENT GROUP: Debility from lumbar myelopathy ETIOLOGIC DIAGNOSIS: Debility from lumbar myelopathy The comorbidities that impact the patients function and/or functional outcome by: obesity, DM, autism, TROY, HTN, anemia, tachycardia, debility chronic REHAB PLAN: The patient is being admitted to our comprehensive inpatient rehabilitation facility and can tolerate the intensity of service consisting of at least: 180 minutes of therapy a day, 5 out of 7 days a week Rehab treatment will consist of: PT OT will focus on regaining function with use of AD in order to increase independence in ADL's and increase ambulatory status in order to live independently The patient/family has a good understanding of our discharge process and will benefit from an interdisciplinary inpatient rehabilitation program. The patient has potential to make improvement and is in need of at least two of the following multidisciplinary therapies including but not limited to physical, occupational, speech, and prosthetics and orthotics. Additionally the patient will need services from respiratory, nutritional services, wound care, psychology, etc. (Customize this to each patient). Given the patients complex condition and risk of further medical complications, rehabilitation services cannot be safely or effectively provided at a lower level of care such as a senior care facility. BARRIERS TO DISCHARGE: Debility at baseline ESTIMATED LOS: 7 days DISPOSITION: Home RELEVANT CHANGES SINCE PREADMISSION SCREENING: I have compared the patients medical and functional status at the time of the preadmission screening and there are: no changes PROGNOSIS: Good REHABILITATION GOALS: 1. PT OT will focus on regaining function with use of AD in order to increase independence in ADL's and increase ambulatory status in order to live independently All the above goals were reviewed with the patient and he/she is in agreement. By signing this document, I acknowledge that I have personally performed a full physical examination on this patient within 24 hours of admission to this inpatient rehabilitation facility and have determined the patient to be able to tolerate the above course of treatment at an intensive level for a reasonable period of time. I will be completing a detailed individualized Plan of Care for this patient by day #4 of the patients stay based upon the Preadmission Screen, the Post-Admission Evaluation, and the therapy evaluations. Admission Dx/Comorbidities: (1) Lumbar myelopathy ICD Codes: G95.9 - Disease of spinal cord, unspecified Assessment/Plan Assessment and Plan Assess & Plan/Chief Complaint Assessment:: Debility following scoliosis correction surgery causing lumbar myelopathy POD # [address] Altamirano h/o long recovery following COVID-19 PNA 06/03/20 [facility] failing [facility]U Anemia s/p 1 unit of blood at [facility] Morbid obesity improved since last admit HTN HLP Developmental delay/autism s/p decubitus ulcers coccyx and left knee s/p debridement 08/16/20 Dr Santillan Tachycardia due to volume depletion Plan: PT OT Pain control Home meds Monitor HR and BP HEMANTH DODD DO Aug 09, 2022 12:24
[2022-08-09] MEDS ORDERED: diphenhydrAMINE 25 MG TAB (BENADRYL) PO PRN (12:30)
[2022-08-09] MEDS ORDERED: BISACODYL 10 MG SUPP (DULCOLAX) PR PRN (12:30)
[2022-08-09] MEDS ORDERED: CALCIUM CARBONATE 500 MG (TUMS) TAB.CHEW PO PRN (12:30)
[2022-08-09] MEDS ORDERED: DOCUSATE SODIUM 100 MG (COLACE) CAP PO PRN (12:30)
[2022-08-09] MEDS ORDERED: guaiFENesin/CODEINE (ROBITUSSIN AC) 10ML UDC PO PRN (12:30)
[2022-08-09] MEDS ORDERED: ACETAMINOPHEN 325 MG TABLET PO PRN (12:30)
[2022-08-09] MEDS ORDERED: LOPERAMIDE 2 MG (IMODIUM) TABLET PO PRN (12:30)
[2022-08-09] MEDS ORDERED: FLEET ENEMA ADULT 1 EA BTL PR PRN (12:30)
[2022-08-09] MEDS ORDERED: ONDANSETRON 4 MG (ZOFRAN) ORAL DISSOLVE TAB PO PRN (12:30)
[2022-08-09] MEDS ORDERED: LACTULOSE SYRUP 10GM/15ML (ENULOSE) 30ML UDC PO PRN (12:30)
--- NOTE | 2022-08-09 13:09 | Occupational Therapy Eval ---
OT Evaluation-General/PLF Medical Diagnosis Admission Date Aug 09, 2022 at 12:45 Medical Diagnosis: s/p T9-Pelvis PSF Onset Date: Aug 05, 2022 Therapy Diagnosis Therapy Diagnosis: decreased ADL Status Height/Weight Height (Feet): 6 Height (Inches): 0.00 Weight (Pounds): 360 Weight (Ounces): 0.0 Precautions Comments 5lb lifting restriction, TLSO in sitting and standing. Referral Physician: Yordan Referral Reason: Evaluation/Treatment Medical History Pertinent Medical History: DM, HTN Additional Medical History DM, GERD, HBP, HTN, scoliosis, thyroid nodule Current History 08/05/22 s/p T9-Pelvis PSF Social History Home: Single Level Current Living Status: Parents Entry Into Home: Ramp ADL-Prior Level of Function SCALE: Activities may be completed with or without assistive devices. 3-Hmcznbajji-xbstkgc completes the activity by him/herself with no assistance from a helper. 5-Set-up or Clean-up Assistance-helper sets up or cleans up; patient completes activity. [place] assists only prior to or following the activity. 4-Supervision or Touching Assistance-helper provides verbal cues and/or touching/steadying and/or contact guard assistance as patient completes activity. Assistance may be provided throughout the activity or intermittently. 3-Partial/Moderate Assistance-helper does LESS THAN HALF the effort. [place] lifts, holds or supports trunk or limbs, but provides less than half the effort. 2-Substantial/Maximal Assistance-helper does MORE THAN HALF the effort. [place] lifts or holds trunk or limbs and provides more than half the effort. 6-Zigesxkym-ziqjwq does ALL the effort. Patient does none of the effort to complete the activity. Or, the assistance of 2 or more helpers is required for the patient to complete the activity. If activity was not attempted, code reason: 7-Patient Refused. 9-Not Applicable-not attempted and the patient did not perform the activity before the current illness, exacerbation or injury. 10-Not Attempted due to Environmental Limitations-(lack of equipment, weather restraints, etc.). 88-Not Attempted due to Medical Conditions or Safety Concerns. ADL PLOF Comments Pt reports IND with ADLS and functional mobility using QC as needed. Self Care: Independent Functional Cognition: Independent DME/Equipment: Bath Bench, Bath Chair, Tub/Shower DME/Equipment Comments shoe horn, production recorder, bed with elevating HOB. OT Current Status Subjective 3/10 pain in back. Mental Status/Objective Patient Orientation: Person, Place, Time, Situation Current Glasses/Contacts: Yes Hand Dominance: Right Upper Extremity ROM WFL, BUE shoulder flexion to approx 140 degrees. Pt has slightly decreased wrist movement in R hand compared to L hand, but is still functional for pt Upper Extremity Coordination WFL. Pt has better fine motor coordination in L hand compared with R, but R wrist has slightly better movement compared with L. This is functional for pt and is his PLOF. Upper Extremity Sensation Pt reports numbness in L hand from forearm through digits 1-4, this is pt's PLOF. Upper Extremity Strength grossly 3/5, not formally tested due to lifting restriction ADL-Treatment Eating (QC): 6 Oral Hygiene (QC): 4 (supervision.) Shower/Bathe Self (QC): 3 (Assist with BLEs lower legs/feet and buttocks.) Upper Body Dressing (QC): 3 (Min A with back brace) Lower Body Dressing (QC): 3 (Min A with pant hike) On/Off Footwear (QC): 3 (Mod A overall. ) Toileting Hygiene (QC): 3 (Mod A, slight assist with pant hike and assist with hygiene.) Other Treatments OT evaluation complete. OT/PT cotreat due to skill of 2 clinicians required which a rehabilitation assistant could not perform in order to coordinate UE/LEs, decrease fall risk and due to pt's limitations in strength, activity tolerance, mobility, and transfers. OT focused on UE placement, cues for sequencing and safety and ADLs, PT focused on LE placement, gross overall movement, transfers and mobility. Pt performed functional mobility and transfers using FWW, including uneven surface, 1 step, car transfer, mobility, and functional mobility using FWW. Pt declined ADLs as he had just completed at [facility] prior to transfer, pt demo'd ability to don/doff footwear but other ADLs QC'd per pt report. Pt completed functional standing task, placing/removing nuts/bolts from block, requiring frequent seated rest breaks. Pt returned to his room using FWW, transferring to bed. Lunch arrived, pt demo'd ability to eat independently. Post tx, pt in bed, call light in reach and all needs met. SBA rolling, min A Supine to/from sit, min A Sit to/from stand, CGA transfers and car transfers. Occasional cues for positioning and safety. Pt can perform functional mobility 100' with FWW CGA. Education OT Patient Education: Correct positioning, Energy conservation, Modified ADL techniques, Progress toward Goal/Update tx plan, Purpose of tx/functional activities, Rehab process Teaching Recipient: Patient Teaching Methods: Discussion Response to Teaching: Verbalize Understanding BIMS CAM BIMS Expression of Ideas and Wants: Without Difficulty Understanding Verbal Content: Understands Brief Interview/Mental Status: Yes IRF ZENON BIMS: IRF ZENON BIMS Response (Comments) Value Repitition of Three Words Three 3 Recalls Socks Yes, No Cue Required 2 Recalls Blue Yes, No Cue Required 2 Recalls Bed Yes, No Cue Required 2 Year Correct 3 Month Accurate Within 5 Days 2 Day Correct 1 Total 15 Should Staff Asses. Mental [address] No CAM Mental Status Change/Baseline: 0 Inattention: 0 Disorganized thinkin Altered level of consciousness: 0 OT Short Term Goals Short Term Goals Time Frame: Aug 23, 2022 Shower/bathe self: 4 Upper body dressin Lower body dressin Putting on/taking off footwear: 4 OT Shelter Goals Shelter Goals Time Frame: Sep 06, 2022 Eating (QC): 6 Oral Hygiene (QC): 6 Toileting Hygiene (QC): 6 Shower/Bathe Self (QC): 6 Upper Body Dressing (QC): 6 Lower Body Dressing (QC): 6 On/Off Footwear (QC): 6 Additional Goals: 1-Demonstrate ADL Tasks, 2-Verbalize Understanding, 3- ImproveStrength/Héctor 1=Demonstrate adherence to instructed precautions during ADL tasks. 2=Patient will verbalize/demonstrate understanding of assistive devices/modifications for ADL. 3=Patient will improve strength/tolerance for activity to enable patient to perform ADL's. OT Education/Plan Problem List/Assessment Assessment: Decreased Activ Tolerance, Decreased UE Strength, Impaired Funct Balance, Impaired I ADL's, Impaired Self-Care Skills Discharge Recommendations Plan/Recommendations: Continue POC Treatment Plan/Plan of Care Patient would benefit from OT for education, treatment and training to promote independence in ADL's, mobility, safety and/or upper extremity function for ADL's. Plan of Care: ADL Retraining, Functional Mobility, Group Exercise/Act as Ind, UE Funct Exercise/Act Treatment Duration: Sep 06, 2022 Frequency: At least 5 of 7 days/Wk (IRF) Estimated Hrs Per Day: 1.5 hours per day Agreement: Yes Rehab Potential: Good Time Start Time: 12:55 Stop Time: 14:25 DATE: Aug 09, 2022 Total Time Billed (hr/min): 90 Billed Treatment Time 7909-5745 OT eval (10'), [id number] Cotreat (80') 1, EVM (10'), ADL 2 (30'), FA 3 (50') LIZZETTE CHU OT Aug 09, 2022 13:09
[2022-08-09 14:04] VITALS: BP 96/60
--- NOTE | 2022-08-09 14:13 | Physical Therapy Evaluation ---
PT Evaluation-General Medical Diagnosis Admission Date Aug 09, 2022 at 12:45 Medical Diagnosis: s/p T9-pelvis PSF Onset Date: Aug 05, 2022 Therapy Diagnosis Therapy Diagnosis: impaired mobility, strength, endurance Height/Weight Height (Feet): 6 Height (Inches): 0.00 Weight (Pounds): 360 Weight (Ounces): 0.0 Weight Bear Status back precautions Referral Physician: Jessica Farr DO Reason for Referral: Evaluation/Treatment Medical History Pertinent Medical History: DM, HTN Additional Medical History Past Medical History Respiratory: Sleep Apnea COVID 06/2020 Currently Using CPAP: No Currently Using BIPAP: No Cardiac: High Cholesterol, Hypertension Neurological: Developmental Disorder Reproductive: No Musculoskeletal: Foot Drop, Contracture Endocrine: Diabetes, Insulin dep Loss of Vision: Denies Hearing Impairment: Denies Psychosocial: Depression History of Blood Disorders: No Social History Home: Single Level Current Living Status: Parents Entry Into Home: Ramp Prior Prior Level of Function SCALE: Activities may be completed with or without assistive devices. 8-Whxsnkeeoc-tphbxkq completes the activity by him/herself with no assistance from a helper. 5-Set-up or Clean-up Assistance-helper sets up or cleans up; patient completes activity. [place] assists only prior to or following the activity. 4-Supervision or Touching Assistance-helper provides verbal cues and/or touching/steadying and/or contact guard assistance as patient completes activity. Assistance may be provided throughout the activity or intermittently. 3-Partial/Moderate Assistance-helper does LESS THAN HALF the effort. [place] lifts, holds or supports trunk or limbs, but provides less than half the effort. 2-Substantial/Maximal Assistance-helper does MORE THAN HALF the effort. [place] lifts or holds trunk or limbs and provides more than half the effort. 5-Elgbafgys-teqidx does ALL the effort. Patient does none of the effort to complete the activity. Or, the assistance of 2 or more helpers is required for the patient to complete the activity. If activity was not attempted, code reason: 7-Patient Refused. 9-Not Applicable-not attempted and the patient did not perform the activity before the current illness, exacerbation or injury. 10-Not Attempted due to Environmental Limitations-(lack of equipment, weather restraints, etc.). 88-Not Attempted due to Medical Conditions or Safety Concerns. Bed Mobility: 6 Transfers (B,C,W/C): 6 Gait: 6 Stairs: 6 Indoor Mobility (Ambulation): Independent Stairs: Independent quad cane PT Evaluation-Current Subjective Patient in WC pre tx, agrees to PT, has 3/10 pain in back. Will be co-treating with OT for part of tx due to poor patient mobility, strength, endurance, severe debility, coordinate UE and LE during activity, safety and reduce risk of falls. Pain Section J - Health Conditions 1. Rarely or not at all 2. Occasionally 3. Frequently 4. Almost constantly 8. Unable to answer Pain Effect on Sleep: 2 Pain Interference with Therapy: 2 Pain Interference w/Day-to-Day: 2 Pt/Family Goals to be independent at home Objective Patient Orientation: Person, Place, Situation ROM/Strength ROM Lower Extremities BLE impaired slightly due to swelling and obesity Strength Lower Extremities LLE (hip flexion 3+/5, knee flexion 4+/5, knee extension 4+/5, dorsiflexion 0/5), RLE (hip flexion 3+/5, knee flexion 4+/5, knee extension 4+/5, dorsiflexion 0/5) Sensory Vision: Wears Glasses Hearing: Functional Hand Dominance: Right Sensation Right Lower Extremit: Impaired Sensation Left Lower Extremity: Impaired Transfers Roll Left & Right (QC): 4 Sit to Lying (QC): 3 Lying to Sitting/Side of Bed(Q: 3 Sit to Stand (QC): 3 Chair/Xlh-tt-Shqzw Xfer(QC): 4 Toilet Transfer (QC): 4 Car Transfer (QC): 4 Patient performed rolling with SBA, supine <-> sit with min assist, sit <-> stand min assist, transfers and car transfer CGA. Patient needs occasional cues for positioning and safety. Gait Does the Patient Walk?: Yes Mode of Locomotion: Walk Anticipated Mode of Locomotion: Walk Walk 10 feet (QC): 4 Walk 50 ft with 2 Turns(QC): 4 Walk 150 ft (QC): 88 Walking 10ft/uneven surface-QC: 4 Distance: 100'x2 Gait Assistive Device: FWW Comments/Gait Description Patient can ambulate 100' with a rolling walker with CGA (including 50' with at least 2 turns of 90 degrees and 10' over an uneven surface), gait is slow, tends to lean a little to the left side. Has bilateral braces for foot drop. Wheelchair Training Wheel 50 ft with 2 turns (QC): 9 Wheel 150 ft (QC): 9 Stairs #of Steps: 1 1 Step (curb) (QC): 4 4 Steps (QC): 88 12 Steps (QC): 88 Walking Assistive Device: Walker Patient can go up and down 1 step using a rolling walker with CGA, cues for foot placement and safety. Balance Sitting Static: Normal Sitting Dynamic: Normal Standing Static: Fair Standing Dynamic: Fair Picking up an Object (QC): 4 (CGA using a asphalt plant worker) Treatment Patient also performed dressing and standing while performing an UE activity to work on LE strength and endurance (patient stood to do this several times, eventually his knees start melting and he has to sit back down). PT performed bed mobility and transfers ambulation, standing activity, stair training, positioning and safety during activity, OT performed dressing, UE positioning and safety during activity. Assessment/Needs Patient in bed post tx with nurse call, phone, tray, all needs met. Patient has impaired mobility, strength, endurance. His BP was a little low at 96/60, nurse is aware. Rehab Potential: Fair PT Finance Analyst Goals [facility] Goals PT [facility] Goals Time Frame: Aug 23, 2022 Roll Left to Right (QC): 6 Sit to Lying (QC): 4 Lying-Sitting on Side/Bed(QC): 4 Sit to Stand (QC): 4 Chair/Qql-bv-Doqyv Xfer(QC): 4 Toilet/Commode Transfer (QC): 4 Car Transfer (QC): 4 Does the Patient Walk: Yes Walk 10 feet (QC): 4 Walk 10ft-Uneven Surface(QC): 4 Walk 50ft with 2 Turns (QC): 4 Walk 150 ft (QC): 4 Wheel 50 feet with 2 turns (QC: 9 Wheel 150 feet: 9 1 Step (curb) (QC): 4 4 Steps (QC): 4 12 Steps (QC): 88 Picking up an Object (QC): 4 all scores of 4 = SBA PT Plan Problem List Problem List: Activity Tolerance, Functional Strength, Safety, Balance, Gait, Transfer, Bed Mobility, ROM Treatment/Plan Treatment Plan: Continue Plan of Care Treatment Plan: Bed Mobility, Education, Functional Activity Héctor, Functional Strength, Group Therapy, Gait, Safety, Therapeutic Exercise, Transfers Treatment Duration: Aug 23, 2022 Frequency: At least 5 of 7 days/Wk (IRF) Estimated Hrs Per Day: 1.5 hours per day Patient and/or Family Agrees t: Yes Safety Risks/Education Patient Education: Gait Training, Transfer Techniques, Steps, Reviewed Precautions, Correct Positioning, Reviewed Don/Doff Brace, Safety Issues Teaching Recipient: Patient Teaching Methods: Demonstration, Discussion Response to Teaching: Reinforcement Needed Discharge Recommendations Plan Patient will perform bed mobility and transfer training, balance and endurance training, functional strengthening, stair training, gait training, and education, to improve functional mobility and independence at home. Therapy Discharge Recommendati: Home & Family, Post Acute PT Time Time In: 1245 Time Out: 1425 DATE: Aug 09, 2022 Total Billed Treatment Time: 90 Total Billed Treatment 1 visit EVM 10' FA 80' PT eval from [id number], OT eval from [id number], co-treat from [id number] LYNDSAY PERRY PT Aug 09, 2022 14:13
[2022-08-09] MEDS ORDERED: NON-FORMULARY MEDICATION 1 EA EA (Metformin HCl 1,000 MG) PO SCH (18:00)
[2022-08-09 18:11] VITALS: BP 116/72
[2022-08-09] MEDS: meTOprolol TARTRATE 50 MG (LOPRESSOR) TAB PO SCH (18:12)
[2022-08-09] MEDS: metFORMIN 500 MG (GLUCOPHAGE) TAB PO SCH (18:13)
[2022-08-09 21:00] VITALS: BP 129/75
[2022-08-09] MEDS: SENNA W/DOCUSATE (SENOKOT S) TABLET PO SCH (21:00)
[2022-08-09] MEDS: PREGABALIN 75 MG (LYRICA) CAP PO SCH (21:34)
[2022-08-09] MEDS: polyethylene glycoL POWDER 17 GM (MIRALAX) PACK PO SCH (21:34)
[2022-08-09] MEDS: DOCUSATE SODIUM 100 MG (COLACE) CAP PO SCH (21:34)
[2022-08-09] MEDS: MELATONIN 3 MG TABLET PO PRN (22:59)
[2022-08-10] MEDS: MULTIVIT W/MINERALS TAB (THERAGRAN M) PO SCH (05:27)
[2022-08-10 06:00] LABS: BASOPHILS # (AUTO) 0.1 10^3/uL (0.0-0.1); BASOPHILS % (AUTO) 1 % (0-10); EOSINOPHILS # (AUTO) 0.3 10^3/uL (0.0-0.3); EOSINOPHILS % (AUTO) 5 % (0-10); HEMATOCRIT 23 % (40-54); HEMOGLOBIN 7.9 g/dL (13.3-17.7); LYMPHOCYTES # (AUTO) 1.8 10^3/uL (1.0-4.0); LYMPHOCYTES % (AUTO) 25 % (12-44); MEAN CORPUSCULAR HEMOGLOBIN 29 pg (25-34); MEAN CORPUSCULAR HGB CONC 34 g/dL (32-36); MEAN CORPUSCULAR VOLUME 84 fL (80-99); MEAN PLATELET VOLUME 9.3 fL (9.0-12.2); MONOCYTES # (AUTO) 0.8 10^3/uL (0.0-1.0); MONOCYTES % (AUTO) 11 % (0-12); NEUTROPHILS # (AUTO) 4.3 10^3/uL (1.8-7.8); NEUTROPHILS % (AUTO) 59 % (42-75); PLATELET COUNT 297 10^3/uL (130-400); WHITE BLOOD COUNT 7.3 10^3/uL (4.3-11.0)
[2022-08-10 06:08] LABS: ALBUMIN 2.6 GM/DL (3.2-4.5)
[2022-08-10 06:09] LABS: POTASSIUM 3.3 MMOL/L (3.6-5.0)
[2022-08-10 06:10] LABS: CALCIUM 8.3 MG/DL (8.5-10.1)
[2022-08-10 06:13] LABS: BILIRUBIN,TOTAL 0.5 MG/DL (0.1-1.0)
[2022-08-10 06:15] LABS: CREATININE SERUM 0.73 MG/DL (0.60-1.30)
[2022-08-10] MEDS ORDERED: CYANOCOBALAMIN INJ 1000 MCG/ML IM ONE ×2 (07:00→09:30)
[2022-08-10 07:03] VITALS: BP 107/67
[2022-08-10] MEDS: DULoxetine 30 MG (CYMBALTA) CAP PO SCH (08:46)
[2022-08-10] MEDS: PREGABALIN 75 MG (LYRICA) CAP PO SCH ×2 (08:46→21:16)
[2022-08-10] MEDS: KCL 10 MEQ TAB (MICRO K) PO SCH (08:46)
[2022-08-10] MEDS: DOCUSATE SODIUM 100 MG (COLACE) CAP PO SCH ×2 (08:47→21:15)
[2022-08-10] MEDS: LORATADINE (CLARITIN) 10 MG TAB PO SCH (08:47)
[2022-08-10] MEDS: meTOprolol TARTRATE 50 MG (LOPRESSOR) TAB PO SCH ×2 (08:47→17:51)
[2022-08-10] MEDS: PANTOPRAZOLE 20 MG TABLET (PROTONIX) PO SCH (08:47)
--- NOTE | 2022-08-10 08:51 | PM&R Progress Note ---
Subjective HPI/CC On Admission Date Seen by Provider: Aug 10, 2022 Time Seen by Provider: 12:00 Subjective/Events-last exam 08/10/2022: Improved overall Venofer and B12 given empirically although studies pending BP stable HR stable Eating well Pain controlled No BM yet so will resolve today Review of Systems General: Fatigue, Malaise Gastrointestinal: Constipation Musculoskeletal: back pain Objective Exam Vital Signs Vital Signs Date Time Temp Pulse Resp B/P (MAP) Pulse Ox O2 Delivery O2 Flow Rate FiO2 08/10/22 21:15 94 Room Air 08/10/22 20:21 36.2 99 16 113/70 (84) Capillary Refill : General Appearance: No Apparent Distress, WD/WN, Chronically ill, Obese HEENT: PERRL/EOMI, Normal ENT Inspection, Pharynx Normal Neck: Full Range of Motion, Normal Inspection, Non Tender, Supple, Carotid Bruit Respiratory: Chest Non Tender, Lungs Clear, Normal Breath Sounds, No Accessory Muscle Use, No Respiratory Distress Cardiovascular: Regular Rate, Rhythm, No Edema, No Gallop, No JVD, No Murmur, Normal Peripheral Pulses Gastrointestinal: Normal Bowel Sounds, No Organomegaly, No Pulsatile Mass, Non Tender, Soft Back: Normal Inspection, CVA Tenderness (L), CVA Tenderness (R), Decreased Range of Motion, Vertebral Tenderness Extremity: Normal Capillary Refill, Normal Inspection, Normal Range of Motion, Non Tender, No Calf Tenderness, No Pedal Edema Neurologic/Psychiatric: Alert, Oriented x3, folder machine II-XII Norm as Tested, Abnormal Gait, Depressed Affect, Motor Weakness (generalized but lower extremities are very weak) Skin: Normal Color, Warm/Dry Lymphatic: No Adenopathy Results/Procedures Lab Patient resulted labs reviewed. FIM Transfers Therapy Code Descriptions/Definitions Functional [place] Measure: 0=Not Assessed/NA 4=Minimal Assistance 1=Total Assistance 5=Supervision or Setup 2=Maximal Assistance 6=Modified [place] 3=Moderate Assistance 7=Complete IndependenceSCALE: Activities may be completed with or without assistive devices. 6-Jwxkrjuwex-lrembhc completes the activity by him/herself with no assistance from a helper. 5-Set-up or Clean-up Assistance-helper sets up or cleans up; patient completes activity. [place] assists only prior to or following the activity. 4-Supervision or Touching Assistance-helper provides verbal cues and/or touching/steadying and/or contact guard assistance as patient completes activity. Assistance may be provided throughout the activity or intermittently. 3-Partial/Moderate Assistance-helper does LESS THAN HALF the effort. [place] lifts, holds or supports trunk or limbs, but provides less than half the effort. 2-Substantial/Maximal Assistance-helper does MORE THAN HALF the effort. [place] lifts or holds trunk or limbs and provides more than half the effort. 5-Scdrqgipb-edtjtl does ALL the effort. Patient does none of the effort to com plete the activity. Or, the assistance of 2 or more helpers is required for the patient to complete the activity. If activity was not attempted, code reason: 7-Patient Refused. 9-Not Applicable-not attempted and the patient did not perform the activity before the current illness, exacerbation or injury. 10-Not Attempted due to Environmental Limitations-(lack of equipment, weather restraints, etc.). 88-Not Attempted due to Medical Conditions or Safety Concerns. Roll Left to Right (QC): 4 Sit to Lying (QC): 3 Sit to Stand (QC): 3 Chair/Gsu-xi-Hedrb Xfer(QC): 4 Car Transfer (QC): 4 Gait Training Does the Patient Walk?: Yes Walk 10 feet (QC): 4 Walk 50 ft with 2 Turns(QC): 4 Walk 150 ft (QC): 88 Walking 10ft/uneven surface-QC: 4 Gait Assistive Device: FWW Wheelchair Training Wheel 50 ft with 2 turns (QC): 9 Wheel 150 ft (QC): 9 Stair Training #of Steps: 1 1 Step (curb) (QC): 4 4 Steps (QC): 88 12 Steps (QC): 88 Balance Picking up an Object (QC): 4 (CGA using a apprentice stylist) ADL-Treatment Eating (QC): 6 Oral Hygiene (QC): 4 (supervision.) Shower/Bathe Self (QC): 3 (Assist with BLEs lower legs/feet and buttocks.) Upper Body Dressing (QC): 3 (Min A with back brace) Lower Body Dressing (QC): 3 (Min A with pant hike) On/Off Footwear (QC): 3 (Mod A overall. ) Toileting Hygiene (QC): 3 (Mod A, slight assist with pant hike and assist with hygiene.) Assessment/Plan Assessment and Plan Assess & Plan/Chief Complaint Assessment:: Debility following scoliosis correction surgery causing lumbar myelopathy POD # [address] Altamirano h/o long recovery following COVID-19 PNA 06/03/20 required group home admit after failing ARU Anemia s/p 1 unit of blood at [facility] Morbid obesity improved since last admit HTN HLP Developmental delay/autism s/p decubitus ulcers coccyx and left knee s/p debridement 08/16/20 Dr Santillan Tachycardia due to volume depletion Severe iron def Vit b12 def Plan: PT OT Pain control Home meds Monitor HR and BP 08/10/2022: Monitor closely Venofer B12 (1) Lumbar myelopathy HEMANTH DODD DO Aug 10, 2022 08:51
[2022-08-10] MEDS: metFORMIN 500 MG (GLUCOPHAGE) TAB PO SCH ×2 (08:52→17:51)
[2022-08-10] MEDS: SENNA W/DOCUSATE (SENOKOT S) TABLET PO SCH ×2 (08:52→21:15)
[2022-08-10] MEDS: polyethylene glycoL POWDER 17 GM (MIRALAX) PACK PO SCH ×2 (08:52→21:15)
--- NOTE | 2022-08-10 08:52 | Individualized Plan of Care ---
Individualized Plan of Care Rehab Nursing IPOC Order Admission Date Aug 09, 2022 at 12:45 Current Orders Orders Admission Order(Inpt,Obs,Sdc) (08/09/22 12:21) Vital Signs: Per Unit Policy ( 08,16,00 (08/09/22 12:21) Ignacio Carmona (08/09/22 12:21) Sequential Compression Device (08/09/22 12:21) Mobile Application Developer-Inpt Rehab Con (08/09/22 12:21) Rehab Nursing Orders-Ipoc (08/09/22 12:21) Physical Therapy Rehab Orders (08/09/22 12:21) Occupational Therapy Rehab Ord (08/09/22 12:21) Speech Therapy Rehab Orders (08/09/22:) Cbc With Automated Diff (08/10/22 06:00) Comprehensive Metabolic Panel (08/10/22 06:00) Precautions (Aru) (08/09/22 12:) Rehab-Intensity Of Therapy (08/09/22 12:) Initiate Admission Nursing Pro .admission (08/09/22 12:21) Alprazolam Tablet (Xanax Tablet) (08/09/22 12:30) Calcium Carbonate Chew Tablet (Antacid C (08/09/22 12:30) Diphenhydramine Tablet (Benadryl Tablet) (08/09/22 12:30) Docusate Sodium Capsule (Colace Capsule) (08/09/22 21:00) Docusate Sodium Capsule (Colace Capsule) (08/09/22 12:30) Bisacodyl Suppository (Dulcolax Supposit (08/09/22 12:30) Lactulose Oral Solution (Enulose Oral So (08/09/22 12:30) Na Phos/Na Biphos Enema (Fleet Enema Ricky (08/09/22 12:30) Guaifenesin/Codeine Syrup (Robitussin Ac (08/09/22 12:30) Loperamide Tablet (Imodium Tablet) (08/09/22 12:30) Melatonin Tablet (Melatonin Tablet) (08/09/22 12:30) Polyethylene Glycol Powder Pkt (Miralax (08/09/22 21:00) Ondansetron Oral Dissolve Tab (Zofran (08/09/22 12:30) Senna S Tablet (Senokot S Tablet) (08/09/22 21:00) Acetaminophen Tablet/Caplet (Tylenol T (08/09/22 12:30) Code/Resuscitation (08/09/22 12:21) Initiate Admission Nursing Pro .admission (08/09/22 12:21) Admission Arrival Bed Request (08/09/22 12:48) Cho 90g/M 0snack (25-2900 William) (08/09/22 Lunch) Atorvastatin Tablet (Lipitor Tablet) (08/09/22 21:00) Loratadine Tablet (Claritin Tablet) (08/10/22 09:00) Metoprolol Tartrate (Ir) Tab (Lopressor (08/09/22 18:00) Omeprazole (Non-Formulary) (Prilosec (No (08/10/22 09:00) Pregabalin Capsule (Lyrica Capsule) (08/09/22 21:00) (Nf) Duloxetine Hcl (08/10/22 09:00) (Nf) Metformin Hcl (08/09/22 18:00) (Nf) Multivitamin (08/10/22 09:00) Metformin Tablet (Glucophage Tablet) (08/09/22 18:00) Pantoprazole Tablet (Protonix Tablet) (08/10/22 09:00) Therapeutic Multivitamin Tab (Vitamins, (08/10/22 07:00) Duloxetine Capsule (Cymbalta Capsule) (08/10/22 09:00) Enoxaparin Injection (Lovenox Injection) (08/10/22 09:00) Hydrocodone/Apap 10/325 Tablet (Lortab 1 (08/09/22 18:45) Ensure Plus Vanilla (08/09/22 19:57) Enoxaparin Injection (Lovenox Injection) (08/13/22 09:00) Nursing Communication (Order) (08/09/22 21:13) Nursing Communication (Order) (08/09/22 21:13) Nursing Communication (Order) (08/09/22 21:19) Iron Test (Fe) (08/10/22 06:53) Vitamin B 12 (08/10/22 06:53) Iron Sucrose Injection (Venofer Injectio (08/10/22 09:00) Cyanocobalamin Injection (Vitamin B-12 I (08/10/22 07:00) Cyanocobalamin Tablet (Vitamin B-12 Tabl (08/11/22 07:00) Potassium Chloride (Tablet) (Klor Con Ta (08/10/22 07:00) Cyanocobalamin Injection (Vitamin B-12 I (08/10/22 09:30) Nursing Communication (Order) (08/10/22 13:54) Patient Visit (08/10/22 ) Gait Training, Ea 15 Min (08/10/22 ) Patient May Use Own Med,Single (Patient (08/10/22 15:30) Patient May Use Own Med,Single (Patient (08/10/22 15:30) (Nf) Brexpiprazole (Rexulti) (08/11/22 09:00) (Nf) Semaglutide (Rybelsus) (08/11/22 09:00) (Nf) Semaglutide (Rybelsus) (08/11/22 06:00) Rehab Nursing Orders: Ongoing Assess. of Cognitive Status, Ongoing Assess. of Function Status, Bladder Management, Bladder Scan, Bladder Training, Bowel Management, Bowel Training, Disease Management & Educaiton, DVT Prophylaxis, Fall Prevention, Fluid/Electrolyte/Nutrition Mgmt, Infection Prevention, Medication Management & Education, Management of Risks & Complications, Management of Skin Intergrity, Nutrition Management, Pain Management, Patient/Family Support, Safety Management, Wound Management Intensity of Therapy to be met Patient to be seen: Min.3h per day/5 of 7d PT IPOC Problem List: Activity Tolerance, Functional Strength, Safety, Balance, Gait, Transfer, Bed Mobility, ROM Treatment Plan: Continue Plan of Care Bed Mobility, Education, Functional Activity Héctor, Functional Strength, Group Therapy, Gait, Safety, Therapeutic Exercise, Transfers Treatment Duration: Aug 23, 2022 Frequency: At least 5 of 7 days/Wk (IRF) Estimated Hrs Per Day: 1.5 hours per day OT IPOC Problems: Decreased Activ Tolerance, Decreased UE Strength, Impaired Funct Balance, Impaired I ADL's, Impaired Self-Care Skills OT Treatment, Training and Edu: Yes Plan of Care: ADL Retraining, Functional Mobility, Group Exercise/Act as Ind, UE Funct Exercise/Act Treatment Duration: Sep 06, 2022 Frequency: At least 5 of 7 days/Wk (IRF) Estimated Hrs Per Day: 1.[address] IPOC Speech Therapy Treatment Plan: Discontinue ST Treatment Duration: Aug 09, 2022 Frequency: Modified Program (IRF) Estimated Hrs Per Day: Other Mobile Application Developer/Case Mgmt Mobile Application Developer/Case Managemen: Discharge Planning Dietitian/Senior Applications Developer Dietitian/Senior Applications Developer to monitor nutritional status and make changes and/or recommendations as needed and work with speech pathology on dietary upgrades as the occur. Physician IPOC Medical Issues being managed closely and that require the 24 hour availability of a physician: Recent complicated spine surgery with ADAL drain in place along with chronic disability will require close monitoring along with management of iron def anemia and tachycardia Medical Issues: Bowel/Bladder Function, DVT Prophylaxis, Falls Precautions, Fluid/Electrolyte/Nutrition Balance, Infection Protection, Pain Management, Wound Care Brief Synthesis of Preadmission Screen, Post-Admission Evaluation, and Therapy Evaluations: PT OT will focus on regaining function with the use of AD in order to regain stamina with ambulation and increase independence in ADL's to return home Medical Prognosis: Good Anticipated Length of Stay: 10 days HEMANTH DODD DO Aug 10, 2022 08:52
[2022-08-10] MEDS ORDERED: ENOXAPARIN 40 MG/0.4 ML (LOVENOX) SYR SC SCH (09:00)
[2022-08-10] MEDS ORDERED: NON-FORMULARY MEDICATION 1 EA EA (Duloxetine HCl 120 MG) PO SCH (09:00)
[2022-08-10] MEDS ORDERED: NON-FORMULARY MEDICATION 1 EA EA (Multivitamin 1 EACH) PO SCH (09:00)
[2022-08-10] MEDS ORDERED: OMEPRAZOLE 20 MG (PriLOSEC) CAP NON-FORMULARY PO SCH (09:00)
[2022-08-10] MEDS: IRON SUCROSE 200 MG/10 ML (VENOFER) VIAL IV SCH (09:24)
--- NOTE | 2022-08-10 10:52 | Physical Therapy Daily Note ---
PT Daily Note-Current Subjective Pt found lying in bed upon entry. Agreed to PT. Reports 3/10 pain pre-treatment. Describes pain as "sharp," "dull," and "achy." Pain Section J - Health Conditions 1. Rarely or not at all 2. Occasionally 3. Frequently 4. Almost constantly 8. Unable to answer Pain Effect on Sleep: 2 Pain Interference with Therapy: 2 Pain Interference w/Day-to-Day: 2 Mental Status Patient Orientation: Person, Place, Time Attachments: Drains Transfers SCALE: Activities may be completed with or without assistive devices. 8-Zspqddpdmc-hdsnzzl completes the activity by him/herself with no assistance from a helper. 5-Set-up or Clean-up Assistance-helper sets up or cleans up; patient completes activity. [place] assists only prior to or following the activity. 4-Supervision or Touching Assistance-helper provides verbal cues and/or touching/steadying and/or contact guard assistance as patient completes activity. Assistance may be provided throughout the activity or intermittently. 3-Partial/Moderate Assistance-helper does LESS THAN HALF the effort. [place] lifts, holds or supports trunk or limbs, but provides less than half the effort. 2-Substantial/Maximal Assistance-helper does MORE THAN HALF the effort. [place] lifts or holds trunk or limbs and provides more than half the effort. 0-Efnrgbehh-rplblu does ALL the effort. Patient does none of the effort to complete the activity. Or, the assistance of 2 or more helpers is required for the patient to complete the activity. If activity was not attempted, code reason: 7-Patient Refused. 9-Not Applicable-not attempted and the patient did not perform the activity before the current illness, exacerbation or injury. 10-Not Attempted due to Environmental Limitations-(lack of equipment, weather restraints, etc.). 88-Not Attempted due to Medical Conditions or Safety Concerns. Roll Left & Right (QC): 4 Lying to Sitting/Side of Bed(Q: 4 Sit to Stand (QC): 3 Pt SBA with rolling and lying to sit transfers to ensure back precautions are maintained. MIN assist with sit to stand transfers. Weight Bearing back precautions Gait Training Does the Patient Walk?: Yes Distance: 150 Walk 10 feet (QC): 4 Walk 50 ft with 2 Turns(QC): 4 Walk 150 ft (QC): 4 Gait Persons Needed: 1 Gait Assistive Device: FWW Pt ambulated 150 feet with FWW. SBA for safety. Uses AFO B due to foot drop. Assessment Current Status: Good Progress Pt displays good muscle strength and endurance with gait training. Reports increased pain when rising to standing position but pain quickly goes away. Pt able to maintain back precautions throughout visit and no verbal cues needed. Required assistance with lower body dressing, placement of TLSO, and placement of B AFO. Continue to progress pt as tolerated per POC to improve strength, functional ability, and decrease pain. PT Assisted Goals Assisted Goals PT Echo Vascular Tech Goals Time Frame: Aug 23, 2022 Roll Left & Right (QC): 6 Sit to Lying (QC): 4 Lying-Sitting on Side/Bed(QC): 4 Sit to Stand (QC): 4 Chair/Lgq-yb-Ccdgn Xfer(QC): 4 Toilet Transfer (QC): 4 Car Transfer (QC): 4 Does the Patient Walk: Yes Walk 10 feet (QC): 4 Walk 50ft with 2 Turns (QC): 4 Walk 150 ft (QC): 4 Walking 10ft on Uneven Surface: 4 1 Step (curb) (QC): 4 4 Steps (QC): 4 12 Steps (QC): 88 Picking up an Object (QC): 4 Wheel 50 feet with 2 turns (QC: 9 Wheel 150 feet: 9 PT Plan Treatment/Plan Treatment Plan: Continue Plan of Care Treatment Plan: Bed Mobility, Education, Functional Activity Héctor, Functional Strength, Group Therapy, Gait, Safety, Therapeutic Exercise, Transfers Treatment Duration: Aug 23, 2022 Frequency: At least 5 of 7 days/Wk (IRF) Estimated Hrs Per Day: 1.5 hours per day Patient and/or Family Agrees t: Yes Time Time In: 803 Time Out: 824 DATE: Aug 10, 2022 Total Billed Treatment Time: 21 Total Billed Treatment 1 visit GT 1x JEN ETIENNE INSTRUCTIONAL TECHNOLOGY COORDINATOR Aug 10, 2022 10:52
[2022-08-10] MEDS ORDERED: PATIENT MAY USE OWN MED,SINGLE MED PO SCH ×2 (15:30)
[2022-08-10 17:55] VITALS: BP 103/62
[2022-08-10 20:21] VITALS: BP 113/70
[2022-08-10] MEDS: MELATONIN 3 MG TABLET PO PRN (21:16)
[2022-08-11] MEDS: SEMAGLUTIDE PO SCH (06:06)
[2022-08-11] MEDS: CYANOCOBALAMIN 1,000 MCG (VITAMIN B-12) TABLET PO SCH (06:47)
[2022-08-11] MEDS: KCL 10 MEQ TAB (MICRO K) PO SCH (06:47)
[2022-08-11] MEDS: MULTIVIT W/MINERALS TAB (THERAGRAN M) PO SCH (06:47)
[2022-08-11 07:15] VITALS: BP 118/78
--- NOTE | 2022-08-11 07:38 | PM&R Progress Note ---
Subjective HPI/CC On Admission Date Seen by Provider: Aug 11, 2022 Time Seen by Provider: 12:00 Subjective/Events-last exam 08/11/2022: No major issues Pale Venofer maintained B12 maintained BM++ 08/10/2022: Improved overall Venofer and B12 given empirically although studies pending BP stable HR stable Eating well Pain controlled No BM yet so will resolve today Review of Systems General: Fatigue, Malaise Objective Exam Vital Signs Vital Signs Date Time Temp Pulse Resp B/P (MAP) Pulse Ox O2 Delivery O2 Flow Rate FiO2 08/11/22 09:00 Room Air 08/11/22 07:15 36.5 93 20 118/78 (91) 97 Capillary Refill : General Appearance: No Apparent Distress, WD/WN, Chronically ill, Obese HEENT: PERRL/EOMI, Normal ENT Inspection, Pharynx Normal Neck: Full Range of Motion, Normal Inspection, Non Tender, Supple, Carotid Bruit Respiratory: Chest Non Tender, Lungs Clear, Normal Breath Sounds, No Accessory Muscle Use, No Respiratory Distress Cardiovascular: Regular Rate, Rhythm, No Edema, No Gallop, No JVD, No Murmur, Normal Peripheral Pulses Gastrointestinal: Normal Bowel Sounds, No Organomegaly, No Pulsatile Mass, Non Tender, Soft Back: Normal Inspection, CVA Tenderness (L), CVA Tenderness (R), Decreased Range of Motion, Vertebral Tenderness Extremity: Normal Capillary Refill, Normal Inspection, Normal Range of Motion, Non Tender, No Calf Tenderness, No Pedal Edema Neurologic/Psychiatric: Alert, Oriented x3, diplomatic interpreter II-XII Norm as Tested, Abnormal Gait, Depressed Affect, Motor Weakness (generalized but lower extremities are v jimmy weak) Skin: Normal Color, Warm/Dry Lymphatic: No Adenopathy Results/Procedures Lab Patient resulted labs reviewed. FIM Transfers Therapy Code Descriptions/Definitions Functional [place] Measure: 0=Not Assessed/NA 4=Minimal Assistance 1=Total Assistance 5=Supervision or Setup 2=Maximal Assistance 6=Modified [place] 3=Moderate Assistance 7=Complete IndependenceSCALE: Activities may be completed with or without assistive devices. 5-Lpbjtapbso-felfzar completes the activity by him/herself with no assistance from a helper. 5-Set-up or Clean-up Assistance-helper sets up or cleans up; patient completes activity. [place] assists only prior to or following the activity. 4-Supervision or Touching Assistance-helper provides verbal cues and/or touching/steadying and/or contact guard assistance as patient completes activity. Assistance may be provided throughout the activity or intermittently. 3-Partial/Moderate Assistance-helper does LESS THAN HALF the effort. [place] lifts, holds or supports trunk or limbs, but provides less than half the effort. 2-Substantial/Maximal Assistance-helper does MORE THAN HALF the effort. [place] lifts or holds trunk or limbs and provides more than half the effort. 5-Ghquqiynw-hhlaee does ALL the effort. Patient does none of the effort to complete the activity. Or, the assistance of 2 or more helpers is required for the patient to complete the activity. If activity was not attempted, code reason: 7-Patient Refused. 9-Not Applicable-not attempted and the patient did not perform the activity before the current illness, exacerbation or injury. 10-Not Attempted due to Environmental Limitations-(lack of equipment, weather restraints, etc.). 88-Not Attempted due to Medical Conditions or Safety Concerns. Roll Left to Right (QC): 4 Sit to Lying (QC): 3 Sit to Stand (QC): 3 Chair/Rkl-jt-Agzty Xfer(QC): 4 Car Transfer (QC): 4 Gait Training Does the Patient Walk?: Yes Distance: 150 Walk 10 feet (QC): 4 Walk 50 ft with 2 Turns(QC): 4 Walk 150 ft (QC): 4 Walking 10ft/uneven surface-QC: 4 Gait Persons Needed: 1 Gait Assistive Device: FWW Wheelchair Training Wheel 50 ft with 2 turns (QC): 9 Wheel 150 ft (QC): 9 Stair Training #of Steps: 1 1 Step (curb) (QC): 4 4 Steps (QC): 88 12 Steps (QC): 88 Balance Picking up an Object (QC): 4 (CGA using a stonehand) ADL-Treatment Eating (QC): 6 Oral Hygiene (QC): 4 (supervision.) Shower/Bathe Self (QC): 3 (Assist with BLEs lower legs/feet and buttocks.) Upper Body Dressing (QC): 3 (Min A with back brace) Lower Body Dressing (QC): 3 (Min A with pant hike) On/Off Footwear (QC): 3 (Mod A overall. ) Toileting Hygiene (QC): 3 (Mod A, slight assist with pant hike and assist with hygiene.) Assessment/Plan Assessment and Plan Assess & Plan/Chief Complaint Assessment:: Debility following scoliosis correction surgery causing lumbar myelopathy POD # [address] Altamirano h/o long recovery following COVID-19 PNA 06/03/20 required alf admit after failing ARU Anemia s/p 1 unit of blood at [facility] Morbid obesity improved since last admit HTN HLP Developmental delay/autism s/p decubitus ulcers coccyx and left knee s/p debridement 08/16/20 Dr Santillan Tachycardia due to volume depletion Severe iron def Vit b12 def Plan: PT OT Pain control Home meds Monitor HR and BP 08/10/2022: Monitor closely Venofer B12 08/11/2022: Monitor closely Venofer (1) Lumbar myelopathy HEMANTH DODD DO Aug 11, 2022 07:38
[2022-08-11] MEDS: PREGABALIN 75 MG (LYRICA) CAP PO SCH ×2 (08:11→21:20)
[2022-08-11] MEDS: DULoxetine 30 MG (CYMBALTA) CAP PO SCH (08:11)
[2022-08-11] MEDS: DOCUSATE SODIUM 100 MG (COLACE) CAP PO SCH ×2 (08:12→21:32)
[2022-08-11] MEDS: meTOprolol TARTRATE 50 MG (LOPRESSOR) TAB PO SCH ×2 (08:12→17:38)
[2022-08-11] MEDS: LORATADINE (CLARITIN) 10 MG TAB PO SCH (08:12)
[2022-08-11] MEDS: SENNA W/DOCUSATE (SENOKOT S) TABLET PO SCH ×2 (08:12→21:32)
[2022-08-11] MEDS: PANTOPRAZOLE 20 MG TABLET (PROTONIX) PO SCH (08:12)
[2022-08-11] MEDS: metFORMIN 500 MG (GLUCOPHAGE) TAB PO SCH ×2 (08:12→17:37)
[2022-08-11] MEDS: REXULTI 0.5 MG PO SCH (08:13)
[2022-08-11] MEDS: polyethylene glycoL POWDER 17 GM (MIRALAX) PACK PO SCH ×2 (08:16→21:32)
[2022-08-11] MEDS ORDERED: RYBELSUS 7 MG PO SCH (09:00)
[2022-08-11] MEDS ORDERED: CATHETER FLUSH 10 ML SYR IVP PRN (11:45)
[2022-08-11] MEDS: CATHETER FLUSH 10 ML SYR IVP SCH ×2 (13:12→21:21)
[2022-08-11 17:39] VITALS: BP 139/75
[2022-08-11 19:28] VITALS: BP 127/66
[2022-08-12] MEDS: SEMAGLUTIDE PO SCH (06:01)
--- NOTE | 2022-08-12 06:11 | PM&R Progress Note ---
Subjective HPI/CC On Admission Date Seen by Provider: Aug 12, 2022 Time Seen by Provider: 09:00 Subjective/Events-last exam 08/12/2022: Much improved Moving well Still pale appearing Venofer maintained and tolerated 08/11/2022: No major issues Pale Venofer maintained B12 maintained BM++ 08/10/2022: Improved overall Venofer and B12 given empirically although studies pending BP stable HR stable Eating well Pain controlled No BM yet so will resolve today Review of Systems General: Fatigue, Malaise Musculoskeletal: back pain Objective Exam Vital Signs Vital Signs Date Time Temp Pulse Resp B/P (MAP) Pulse Ox O2 Delivery O2 Flow Rate FiO2 08/12/22 21:10 96 Room Air 08/12/22 20:12 36.5 90 16 94/62 (73) Capillary Refill : General Appearance: No Apparent Distress, WD/WN, Chronically ill, Obese HEENT: PERRL/EOMI, Normal ENT Inspection, Pharynx Normal Neck: Full Range of Motion, Normal Inspection, Non Tender, Supple, Carotid Bruit Respiratory: Chest Non Tender, Lungs Clear, Normal Breath Sounds, No Accessory Muscle Use, No Respiratory Distress Cardiovascular: Regular Rate, Rhythm, No Edema, No Gallop, No JVD, No Murmur, Normal Peripheral Pulses Gastrointestinal: Normal Bowel Sounds, No Organomegaly, No Pulsatile Mass, Non Tender, Soft Back: Normal Inspection, CVA Tenderness (L), CVA Tenderness (R), Decreased Range of Motion, Vertebral Tenderness Extremity: Normal Capillary Refill, Normal Inspection, Normal Range of Motion, Non Tender, No Calf Tenderness, No Pedal Edema Neurologic/Psychiatric: Alert, Oriented x3, enamel applier II-XII Norm as Tested, Abnormal Gait, Depressed Affect, Motor Weakness (generalized but lower extremities are very weak) Skin: Normal Color, Warm/Dry Lymphatic: No Adenopathy Results/Procedures Lab Laboratory Tests 08/12/22 06:18 Patient resulted labs reviewed. FIM Transfers Therapy Code Descriptions/Definitions Functional [place] Measure: 0=Not Assessed/NA 4=Minimal Assistance 1=Total Assistance 5=Supervision or Setup 2=Maximal Assistance 6=Modified [place] 3=Moderate Assistance 7=Complete IndependenceSCALE: Activities may be completed with or without assistive devices. 0-Ogrktqcbcm-svgxwmm completes the activity by him/herself with no assistance from a helper. 5-Set-up or Clean-up Assistance-helper sets up or cleans up; patient completes activity. [place] assists only prior to or following the activity. 4-Supervision or Touching Assistance-helper provides verbal cues and/or touching/steadying and/or contact guard assistance as patient completes activity. Assistance may be provided throughout the activity or intermittently. 3-Partial/Moderate Assistance-helper does LESS THAN HALF the effort. [place] lifts, holds or supports trunk or limbs, but provides less than half the effort. 2-Substantial/Maximal Assistance-helper does MORE THAN HALF the effort. [place] lifts or holds trunk or limbs and provides more than half the effort. 7-Tsazhcadk-kqhsjn does ALL the effort. Patient does none of the effort to complete the activity. Or, the assistance of 2 or more helpers is required for the patient to complete the activity. If activity was not attempted, code reason: 7-Patient Refused. 9-Not Applicable-not attempted and the patient did not perform the activity before the current illness, exacerbation or injury. 10-Not Attempted due to Environmental Limitations-(lack of equipment, weather restraints, etc.). 88-Not Attempted due to Medical Conditions or Safety Concerns. Roll Left to Right (QC): 4 Sit to Lying (QC): 3 Sit to Stand (QC): 3 Chair/Shn-nk-Ngieb Xfer(QC): 4 Car Transfer (QC): 4 Gait Training Does the Patient Walk?: Yes Distance: 150 Walk 10 feet (QC): 4 Walk 50 ft with 2 Turns(QC): 4 Walk 150 ft (QC): 4 Walking 10ft/uneven surface-QC: 4 Gait Persons Needed: 1 Gait Assistive Device: FWW Wheelchair Training Wheel 50 ft with 2 turns (QC): 9 Wheel 150 ft (QC): 9 Stair Training #of Steps: 1 1 Step (curb) (QC): 4 4 Steps (QC): 88 12 Steps (QC): 88 Balance Picking up an Object (QC): 4 (CGA using a software validation technician) ADL-Treatment Eating (QC): 6 Oral Hygiene (QC): 4 (supervision.) Shower/Bathe Self (QC): 3 (Assist with BLEs lower legs/feet and buttocks.) Upper Body Dressing (QC): 3 (Min A with back brace) Lower Body Dressing (QC): 3 (Min A with pant hike) On/Off Footwear (QC): 3 (Mod A overall. ) Toileting Hygiene (QC): 3 (Mod A, slight assist with pant hike and assist with hygiene.) Assessment/Plan Assessment and Plan Assess & Plan/Chief Complaint Assessment:: Debility following scoliosis correction surgery causing lumbar myelopathy POD # [address] Altamirano h/o long recovery following COVID-19 PNA 06/03/20 required skilled nursing admit after failing ARU Anemia s/p 1 unit of blood at [facility] Morbid obesity improved since last admit HTN HLP Developmental delay/autism s/p decubitus ulcers coccyx and left knee s/p debridement 08/16/20 Dr Santillan Tachycardia due to volume depletion Severe iron def Vit b12 def Plan: PT OT Pain control Home meds Monitor HR and BP 08/10/2022: Monitor closely Venofer B12 08/11/2022: Monitor closely Venofer 08/12/2022: Monitor closely Fall risk (1) Lumbar myelopathy HEMANTH DODD DO Aug 12, 2022 06:11
[2022-08-12 06:29] LABS: BASOPHILS % (AUTO) 1 % (0-10); EOSINOPHILS # (AUTO) 0.3 10^3/uL (0.0-0.3); EOSINOPHILS % (AUTO) 4 % (0-10); HEMATOCRIT 26 % (40-54); HEMOGLOBIN 8.8 g/dL (13.3-17.7); LYMPHOCYTES # (AUTO) 2.1 10^3/uL (1.0-4.0); LYMPHOCYTES % (AUTO) 27 % (12-44); MEAN CORPUSCULAR HEMOGLOBIN 29 pg (25-34); MEAN CORPUSCULAR HGB CONC 34 g/dL (32-36); MEAN CORPUSCULAR VOLUME 86 fL (80-99); MEAN PLATELET VOLUME 8.8 fL (9.0-12.2); MONOCYTES # (AUTO) 0.9 10^3/uL (0.0-1.0); MONOCYTES % (AUTO) 11 % (0-12); NEUTROPHILS # (AUTO) 4.3 10^3/uL (1.8-7.8); NEUTROPHILS % (AUTO) 56 % (42-75); PLATELET COUNT 347 10^3/uL (130-400); WHITE BLOOD COUNT 7.7 10^3/uL (4.3-11.0)
[2022-08-12] MEDS: CYANOCOBALAMIN 1,000 MCG (VITAMIN B-12) TABLET PO SCH (06:30)
[2022-08-12] MEDS: KCL 10 MEQ TAB (MICRO K) PO SCH (06:30)
[2022-08-12] MEDS: MULTIVIT W/MINERALS TAB (THERAGRAN M) PO SCH (06:30)
[2022-08-12] MEDS: CATHETER FLUSH 10 ML SYR IVP SCH ×3 (06:30→21:14)
[2022-08-12 06:38] LABS: ALBUMIN 2.8 GM/DL (3.2-4.5)
[2022-08-12 06:39] LABS: POTASSIUM 3.9 MMOL/L (3.6-5.0)
[2022-08-12 06:40] LABS: CALCIUM 8.5 MG/DL (8.5-10.1)
[2022-08-12 06:41] LABS: TOTAL PROTEIN 5.2 GM/DL (6.4-8.2)
[2022-08-12 06:43] LABS: BILIRUBIN,TOTAL 0.4 MG/DL (0.1-1.0)
[2022-08-12 06:45] LABS: CREATININE SERUM 0.81 MG/DL (0.60-1.30)
[2022-08-12 07:58] VITALS: BP 133/77
[2022-08-12] MEDS: DOCUSATE SODIUM 100 MG (COLACE) CAP PO SCH ×2 (08:28→21:12)
[2022-08-12] MEDS: SENNA W/DOCUSATE (SENOKOT S) TABLET PO SCH ×2 (08:29→21:12)
[2022-08-12] MEDS: PANTOPRAZOLE 20 MG TABLET (PROTONIX) PO SCH (08:29)
[2022-08-12] MEDS: meTOprolol TARTRATE 50 MG (LOPRESSOR) TAB PO SCH ×2 (08:29→18:02)
[2022-08-12] MEDS: LORATADINE (CLARITIN) 10 MG TAB PO SCH (08:29)
[2022-08-12] MEDS: metFORMIN 500 MG (GLUCOPHAGE) TAB PO SCH ×2 (08:30→18:02)
[2022-08-12] MEDS: PREGABALIN 75 MG (LYRICA) CAP PO SCH ×2 (08:30→21:12)
[2022-08-12] MEDS: DULoxetine 30 MG (CYMBALTA) CAP PO SCH (08:30)
[2022-08-12] MEDS: polyethylene glycoL POWDER 17 GM (MIRALAX) PACK PO SCH ×2 (08:33→21:14)
--- NOTE | 2022-08-12 10:15 | Occupational Ther Daily Note ---
OT Current Status-Daily Note Subjective Pt in recliner, agreeable to OT Tx. Orders received from Dr Altamirano stating pt can shower with back brace off. Mental Status/Objective Patient Orientation: Normal For Age ADL-Treatment Therapy Code Descriptions/Definitions Functional [place] Measure: 0=Not Assessed/NA 4=Minimal Assistance 1=Total Assistance 5=Supervision or Setup 2=Maximal Assistance 6=Modified [place] 3=Moderate Assistance 7=Complete IndependenceSCALE: Activities may be completed with or without assistive devices. 4-Tfhsgadnlx-fbidhzb completes the activity by him/herself with no assistance from a helper. 5-Set-up or Clean-up Assistance-helper sets up or cleans up; patient completes activity. [place] assists only prior to or following the activity. 4-Supervision or Touching Assistance-helper provides verbal cues and/or touching/steadying and/or contact guard assistance as patient completes activity. Assistance may be provided throughout the activity or intermittently. 3-Partial/Moderate Assistance-helper does LESS THAN HALF the effort. [place] lifts, holds or supports trunk or limbs, but provides less than half the effort. 2-Substantial/Maximal Assistance-helper does MORE THAN HALF the effort. [place] lifts or holds trunk or limbs and provides more than half the effort. 3-Stlskujls-lesznx does ALL the effort. Patient does none of the effort to complete the activity. Or, the assistance of 2 or more helpers is required for the patient to complete the activity. If activity was not attempted, code reason: 7-Patient Refused. 9-Not Applicable-not attempted and the patient did not perform the activity before the current illness, exacerbation or injury. 10-Not Attempted due to Environmental Limitations-(lack of equipment, weather restraints, etc.). 88-Not Attempted due to Medical Conditions or Safety Concerns. Shower/Bathe Self (QC): 3 (Min A to wash buttocks for thoroughness. 100% seated on BS with cut out.) Upper Body Dressing (QC): 3 (Min A donning/doffing back brace.) Other Treatment Pt in recliner, OT covered incision prior to showering, then pt donned back brace, min A. Pt stood from recliner, CGA, transferring into shower onto BS, CGA. Pt doffed LE clothing, CGA for pants, min A with shoes/socks. Pt required assistance lifting legs into figure 4 position for doffing footwear. Pt completed shower, min A with washing buttocks for thoroughness, pt then began drying off. RIVERA present to continue ADL session with pt, all needs met. Education OT Patient Education: Correct positioning, Energy conservation, Modified ADL techniques, Progress toward Goal/Update tx plan, Purpose of tx/functional a ctivities, Rehab process Teaching Recipient: Patient Teaching Methods: Discussion Response to Teaching: Verbalize Understanding OT Short Term Goals Short Term Goals Time Frame: Aug 23, 2022 Shower/bathe self: 4 Upper body dressin Lower body dressin Putting on/taking off footwear: 4 OT Correction Goals Edge Inker Uppers Goals Time Frame: Sep 06, 2022 Acute change in mental status: 0 Inattention: 0 Disorganized thinkin Altered level of consciousness: 0 Eating (QC): 6 Oral Hygiene (QC): 6 Toileting Hygiene (QC): 6 Shower/Bathe Self (QC): 6 Upper Body Dressing (QC): 6 Lower Body Dressing (QC): 6 On/Off Footwear (QC): 6 Additional Goals: 1-Demonstrate ADL Tasks, 2-Verbalize Understanding, 3- ImproveStrength/Héctor 1=Demonstrate adherence to instructed precautions during ADL tasks. 2=Patient will verbalize/demonstrate understanding of assistive devices/modifications for ADL. 3=Patient will improve strength/tolerance for activity to enable patient to perform ADL's. OT Education/Plan Problem List/Assessment Assessment: Decreased Activ Tolerance, Decreased UE Strength, Impaired Funct Balance, Impaired I ADL's, Impaired Self-Care Skills Discharge Recommendations Plan/Recommendations: Continue POC Treatment Plan/Plan of Care Patient would benefit from OT for education, treatment and training to promote independence in ADL's, mobility, safety and/or upper extremity function for ADL's. Plan of Care: ADL Retraining, Functional Mobility, Group Exercise/Act as Ind, UE Funct Exercise/Act Treatment Duration: Sep 06, 2022 Frequency: At least 5 of 7 days/Wk (IRF) Estimated Hrs Per Day: 1.5 hours per day Agreement: Yes Rehab Potential: Fair Time Start Time: 09:30 Stop Time: 10:00 DATE: Aug 12, 2022 Total Time Billed (hr/min): 30 Billed Treatment Time 1, ADL 2 CRUMPACKER,LIZZETTE OT Aug 12, 2022 10:15
--- NOTE | 2022-08-12 10:51 | Occupational Ther Daily Note ---
OT Current Status-Daily Note Subjective Took over care from OTR/L. Pt agrees to therapy. No c/o pain. Mental Status/Objective Patient Orientation: Person, Place, Time, Situation Attachments: Other-See Comments (TLSO) ADL-Treatment Set up to don/doff shirt and TLSO. Pt able to thread feet into pants then stand with CGA for safety to hike over hips. Pt given education on leg fly setter to assist leg to figure 4 position to don socks and AFOs, assist to place hooks on shoes. Pt stood with SBA for safety to complete oral care by self. Therapy Code Descriptions/Definitions Functional [place] Measure: 0=Not Assessed/NA 4=Minimal Assistance 1=Total Assistance 5=Supervision or Setup 2=Maximal Assistance 6=Modified [place] 3=Moderate Assistance 7=Complete IndependenceSCALE: Activities may be completed with or without assistive devices. 7-Qmwibdgkuf-eodvjul completes the activity by him/herself with no assistance from a helper. 5-Set-up or Clean-up Assistance-helper sets up or cleans up; patient completes activity. [place] assists only prior to or following the activity. 4-Supervision or Touching Assistance-helper provides verbal cues and/or touching/steadying and/or contact guard assistance as patient completes activity. Assistance may be provided throughout the activity or intermittently. 3-Partial/Moderate Assistance-helper does LESS THAN HALF the effort. [place] lifts, holds or supports trunk or limbs, but provides less than half the effort. 2-Substantial/Maximal Assistance-helper does MORE THAN HALF the effort. [place] lifts or holds trunk or limbs and provides more than half the effort. 1-Rmmtbzbnd-mflvda does ALL the effort. Patient does none of the effort to com plete the activity. Or, the assistance of 2 or more helpers is required for the patient to complete the activity. If activity was not attempted, code reason: 7-Patient Refused. 9-Not Applicable-not attempted and the patient did not perform the activity before the current illness, exacerbation or injury. 10-Not Attempted due to Environmental Limitations-(lack of equipment, weather restraints, etc.). 88-Not Attempted due to Medical Conditions or Safety Concerns. Oral Hygiene (QC): 4 Upper Body Dressing (QC): 5 Lower Body Dressing (QC): 4 On/Off Footwear: 3 Other Treatment Pt given medium resistance theraputty and therapy sponge to strengthen pinc h/trim setter, dexterity and coordination for daily functional tasks. Skilled instruction for correct technique and exercises required. Pt demonstrated understanding of each exercise. After therapy, pt sitting in recliner with call light/phone in reach. Nrsg in room at end of session. All needs met. Education OT Patient Education: Exercise program Teaching Recipient: Patient Teaching Methods: Demonstration, Discussion Response to Teaching: Return Demonstration, Reinforcement Needed OT Short Term Goals Short Term Goals Time Frame: Aug 23, 2022 Shower/bathe self: 4 Upper body dressin Lower body dressin Putting on/taking off footwear: 4 OT Licensed Therapist Goals [facility] Goals Time Frame: Sep 06, 2022 Acute change in mental status: 0 Inattention: 0 Disorganized thinkin Altered level of consciousness: 0 Eating (QC): 6 Oral Hygiene (QC): 6 Toileting Hygiene (QC): 6 Shower/Bathe Self (QC): 6 Upper Body Dressing (QC): 6 Lower Body Dressing (QC): 6 On/Off Footwear (QC): 6 Additional Goals: 1-Demonstrate ADL Tasks, 2-Verbalize Understanding, 3- ImproveStrength/Héctor 1=Demonstrate adherence to instructed precautions during ADL tasks. 2=Patient will verbalize/demonstrate understanding of assistive devices/modifications for ADL. 3=Patient will improve strength/tolerance for activity to enable patient to perform ADL's. OT Education/Plan Problem List/Assessment Assessment: Decreased Activ Tolerance, Decreased UE Strength, Impaired Self- Care Skills Discharge Recommendations Plan/Recommendations: Continue POC Treatment Plan/Plan of Care Patient would benefit from OT for education, treatment and training to promote independence in ADL's, mobility, safety and/or upper extremity function for ADL's. Plan of Care: ADL Retraining, Functional Mobility, Group Exercise/Act as Ind, UE Funct Exercise/Act Treatment Duration: Sep 06, 2022 Frequency: At least 5 of 7 days/Wk (IRF) Estimated Hrs Per Day: 1.5 hours per day Agreement: Yes Rehab Potential: Fair Time Start Time: 10:00 Stop Time: 11:00 DATE: Aug 12, 2022 Total Time Billed (hr/min): 60 Billed Treatment Time 1 visit-ADL 2 (30 min) Ex 2 (30 min) JAS GARCIA Aug 12, 2022 10:51
--- NOTE | 2022-08-12 11:02 | Physical Therapy Daily Note ---
PT Daily Note-Current Subjective Pt laying in bed upon arrival. Pt agrees to PT. Pt reports feeling less regular pain and able to more easily don TSLO brace. Pain Numeric Pain Scale: 3 Location Body Site: Back Pain Description: Ache Section J - Health Conditions 1. Rarely or not at all 2. Occasionally 3. Frequently 4. Almost constantly 8. Unable to answer Pain Effect on Sleep: 2 Pain Interference with Therapy: 2 Pain Interference w/Day-to-Day: 2 Mental Status Patient Orientation: Person, Place, Situation Attachments: Other-See Comments (TLSO brace & AFO for B LE) Transfers SCALE: Activities may be completed with or without assistive devices. 6-Xhqoozapyn-hbjcnth completes the activity by him/herself with no assistance from a helper. 5-Set-up or Clean-up Assistance-helper sets up or cleans up; patient completes activity. [place] assists only prior to or following the activity. 4-Supervision or Touching Assistance-helper provides verbal cues and/or touching/steadying and/or contact guard assistance as patient completes activity. Assistance may be provided throughout the activity or intermittently. 3-Partial/Moderate Assistance-helper does LESS THAN HALF the effort. [place] lifts, holds or supports trunk or limbs, but provides less than half the effort. 2-Substantial/Maximal Assistance-helper does MORE THAN HALF the effort. [place] lifts or holds trunk or limbs and provides more than half the effort. 4-Aspzbwstd-dtbwwm does ALL the effort. Patient does none of the effort to complete the activity. Or, the assistance of 2 or more helpers is required for the patient to complete the activity. If activity was not attempted, code reason: 7-Patient Refused. 9-Not Applicable-not attempted and the patient did not perform the activity before the current illness, exacerbation or injury. 10-Not Attempted due to Environmental Limitations-(lack of equipment, weather restraints, etc.). 88-Not Attempted due to Medical Conditions or Safety Concerns. Lying to Sitting/Side of Bed(Q: 4 Sit to Stand (QC): 3 Weight Bearing Full Weight Bearing Full Weight Bearing back precautions Gait Training Does the Patient Walk?: Yes Distance: 100' Walk 10 feet (QC): 4 Walk 50 ft with 2 Turns(QC): 4 Gait Persons Needed: 1 Gait Assistive Device: FWW Exercises Seated Therapy Exercises: Ankle pumps, Long arc quads, Hip flexion, Glut set Treatments Pt TF from Supine to EOB to Standing after socks, AFO & shoes are donned. Pt completes Seated EX as Nurse gives morning meds. Pt TF to standing and amb in hallway. Pt takes RB as needed. Pt returns to recliner at end of tx to rest. All needs met, call light in hand. Assessment Current Status: Fair Progress Pt demonstrates improvemnt in TF and amb. but also demonstrates feeling down today. PT Longterm Goals Longterm Goals PT Strong Nitric Operator Goals Time Frame: Aug 23, 2022 Roll Left & Right (QC): 6 Sit to Lying (QC): 4 Lying-Sitting on Side/Bed(QC): 4 Sit to Stand (QC): 4 Chair/Jya-tc-Pzklb Xfer(QC): 4 Toilet Transfer (QC): 4 Car Transfer (QC): 4 Does the Patient Walk: Yes Walk 10 feet (QC): 4 Walk 50ft with 2 Turns (QC): 4 Walk 150 ft (QC): 4 Walking 10ft on Uneven Surface: 4 1 Step (curb) (QC): 4 4 Steps (QC): 4 12 Steps (QC): 88 Picking up an Object (QC): 4 Wheel 50 feet with 2 turns (QC: 9 Wheel 150 feet: 9 PT Plan Problem List Problem List: Activity Tolerance, Functional Strength, Gait Treatment/Plan Treatment Plan: Continue Plan of Care Treatment Plan: Bed Mobility, Education, Functional Activity Héctor, Functional Strength, Group Therapy, Gait, Safety, Therapeutic Exercise, Transfers Treatment Duration: Aug 23, 2022 Frequency: At least 5 of 7 days/Wk (IRF) Estimated Hrs Per Day: 1.5 hours per day Patient and/or Family Agrees t: Yes Safety Risks/Education Patient Education: Gait Training, Correct Positioning, Reviewed Don/Doff Brace Teaching Recipient: Patient Teaching Methods: Discussion Response to Teaching: Verbalize Understanding Time Time In: 800 Time Out: 900 DATE: Aug 12, 2022 Total Billed Treatment Time: 60 Total Billed Treatment 1, FA x2 (30m), EX (15m) & GT (15m) AUBREE ÁLVAREZ DESIZING MACHINE OPERATOR HEAD END Aug 12, 2022 11:02
[2022-08-12] MEDS: REXULTI 0.5 MG PO SCH (11:03)
[2022-08-12] MEDS: IRON SUCROSE 200 MG/10 ML (VENOFER) VIAL IV SCH (11:05)
--- NOTE | 2022-08-12 15:10 | Therapy Group Daily Note ---
Therapy Daily Group Note Patient Education Topic Other List Below (memory/ARU description and expectations) Exercises LE Seated Exercise, UE Exercise Session Ratio (pt:therapist): 3:1 Goal of Session: Education on ARU Expectations, Memory Strategies, UE/LE Strengthing Goal Met for this Session: Yes Pt Benefit of Group: Contributions to Others, F/U Use of Strategies @Home, Increased Functional Safety, Increased Functional Strength, Improved Cognition, Recognition of Peers, Socialization Other/Notes Pt ambulated using FWW to OT/PT group. Group consisted of introductions (name, place living, memory task), socialization, B UE/LE seated exercises and education on memory. Pt introduced self appropriately and actively listened to peers. B UE/LE seated exercises tolerated. Pt actively participated in memory education and activity appropriately by giving own strategies. Pt able to participate in activity and was able to choose 2 out of 4 correctly. After session, pt lying in bed. Call light/phone in reach. All needs met in room. Start Time: 13:00 Stop Time: 14:30 Total Billed Treatment Time: 90 Total Billed Treatment 1-GRP JAS GARCIA Aug 12, 2022 15:10
[2022-08-12 18:01] VITALS: BP 101/56
[2022-08-12 20:12] VITALS: BP 94/62
[2022-08-12] MEDS: ALPRAZolam 0.25 MG (XANAX) TAB PO PRN (21:12)
[2022-08-12] MEDS: MELATONIN 3 MG TABLET PO PRN (21:12)
--- NOTE | 2022-08-13 05:55 | PM&R Progress Note ---
Subjective HPI/CC On Admission Date Seen by Provider: Aug 13, 2022 Time Seen by Provider: 09:00 Subjective/Events-last exam 08/13/2022: Much improved No pain until night time so I added a muscle relaxant to help him sleep too with a pain pill BM+ No falls 08/12/2022: Much improved Moving well Still pale appearing Venofer maintained and tolerated 08/11/2022: No major issues Pale Venofer maintained B12 maintained BM++ 08/10/2022: Improved overall Venofer and B12 given empirically although studies pending BP stable HR stable Eating well Pain controlled No BM yet so will resolve today Review of Systems General: Fatigue, Malaise Objective Exam Vital Signs Vital Signs Date Time Temp Pulse Resp B/P (MAP) Pulse Ox O2 Delivery O2 Flow Rate FiO2 08/13/22 21:15 98 Room Air 08/13/22 20:30 36.8 89 20 120/63 (82) Capillary Refill : General Appearance: No Apparent Distress, WD/WN, Chronically ill, Obese HEENT: PERRL/EOMI, Normal ENT Inspection, Pharynx Normal Neck: Full Range of Motion, Normal Inspection, Non Tender, Supple, Carotid Bruit Respiratory: Chest Non Tender, Lungs Clear, Normal Breath Sounds, No Accessory Muscle Use, No Respiratory Distress Cardiovascular: Regular Rate, Rhythm, No Edema, No Gallop, No JVD, No Murmur, Normal Peripheral Pulses Gastrointestinal: Normal Bowel Sounds, No Organomegaly, No Pulsatile Mass, Non Tender, Soft Back: Normal Inspection, CVA Tenderness (L), CVA Tenderness (R), Decreased Range of Motion, Vertebral Tenderness Extremity: Normal Capillary Refill, Normal Inspection, Normal Range of Motion, Non Tender, No Calf Tenderness, No Pedal Edema Neurologic/Psychiatric: Alert, Oriented x3, metal fitters and machinists II-XII Norm as Tested, Abnormal Gait, Depressed Affect, Motor Weakness (generalized but lower extremities are very weak) Skin: Normal Color, Warm/Dry Lymphatic: No Adenopathy Results/Procedures Lab Patient resulted labs reviewed. FIM Transfers Therapy Code Descriptions/Definitions Functional [place] Measure: 0=Not Assessed/NA 4=Minimal Assistance 1=Total Assistance 5=Supervision or Setup 2=Maximal Assistance 6=Modified [place] 3=Moderate Assistance 7=Complete IndependenceSCALE: Activities may be completed with or without assistive devices. 3-Dhyt[place]ox-irvelxq completes the activity by him/herself with no assistance from a helper. 5-Set-up or Clean-up Assistance-helper sets up or cleans up; patient completes activity. Painter assists only prior to or following the activity. 4-Supervision or Touching Assistance-helper provides verbal cues and/or touching/steadying and/or contact guard assistance as patient completes activity. Assistance may be provided throughout the activity or intermittently. 3-Partial/Moderate Assistance-helper does LESS THAN HALF the effort. Painter lifts, holds or supports trunk or limbs, but provides less than half the effort. 2-Substantial/Maximal Assistance-helper does MORE THAN HALF the effort. Painter lifts or holds trunk or limbs and provides more than half the effort. 9-Cgkiuibud-qrkpxy does ALL the effort. Patient does none of the effort to complete the activity. Or, the assistance of 2 or more helpers is required for the patient to complete the activity. If activity was not attempted, code reason: 7-Patient Refused. 9-Not Applicable-not attempted and the patient did not perform the activity before the current illness, exacerbation or injury. 10-Not Attempted due to Environmental Limitations-(lack of equipment, weather restraints, etc.). 88-Not Attempted due to Medical Conditions or Safety Concerns. Roll Left to Right (QC): 4 Sit to Lying (QC): 3 Sit to Stand (QC): 3 Chair/Kzg-zf-Unawy Xfer(QC): 4 Car Transfer (QC): 4 Gait Training Does the Patient Walk?: Yes Distance: 100' Walk 10 feet (QC): 4 Walk 50 ft with 2 Turns(QC): 4 Walk 150 ft (QC): 4 Walking 10ft/uneven surface-QC: 4 Gait Persons Needed: 1 Gait Assistive Device: FWW Wheelchair Training Wheel 50 ft with 2 turns (QC): 9 Wheel 150 ft (QC): 9 Stair Training #of Steps: 1 1 Step (curb) (QC): 4 4 Steps (QC): 88 12 Steps (QC): 88 Balance Picking up an Object (QC): 4 (CGA using a assisted living care manager) ADL-Treatment Eating (QC): 6 Oral Hygiene (QC): 4 Shower/Bathe Self (QC): 3 (Min A to wash buttocks for thoroughness. 100% seated on [facility] with cut out.) Upper Body Dressing (QC): 5 Lower Body Dressing (QC): 4 On/Off Footwear (QC): 3 Toileting Hygiene (QC): 3 (Mod A, slight assist with pant hike and assist with hygiene.) Assessment/Plan Assessment and Plan Assess & Plan/Chief Complaint Assessment:: Debility following scoliosis correction surgery causing lumbar myelopathy POD # [address]amirano h/o long recovery following COVID-19 PNA 06/03/20 required [place] [facility] failing [facility]U Anemia s/p 1 unit of blood at [facility] Morbid obesity improved since last admit HTN HLP Developmental delay/autism s/p decubitus ulcers coccyx and left knee s/p debridement 08/16/20 Dr Santillan Tachycardia due to volume depletion Severe iron def Vit b12 def Plan: PT OT Pain control Home meds Monitor HR and BP 08/10/2022: Monitor closely Venofer B12 08/11/2022: Monitor closely Venofer 08/12/2022: Monitor closely Fall risk 08/13/2022: Add muscle relaxant (1) Lumbar myelopathy HEMANTH DODD DO Aug 13, 2022 05:55
[2022-08-13] MEDS: CYANOCOBALAMIN 1,000 MCG (VITAMIN B-12) TABLET PO SCH (06:38)
[2022-08-13] MEDS: SEMAGLUTIDE PO SCH (06:38)
[2022-08-13] MEDS: MULTIVIT W/MINERALS TAB (THERAGRAN M) PO SCH (06:38)
[2022-08-13] MEDS: KCL 10 MEQ TAB (MICRO K) PO SCH (06:39)
[2022-08-13] MEDS: CATHETER FLUSH 10 ML SYR IVP SCH ×3 (06:42→21:46)
[2022-08-13 08:00] VITALS: BP 105/68
[2022-08-13] MEDS: SENNA W/DOCUSATE (SENOKOT S) TABLET PO SCH ×2 (08:01→21:45)
[2022-08-13] MEDS: LORATADINE (CLARITIN) 10 MG TAB PO SCH (08:01)
[2022-08-13] MEDS: PREGABALIN 75 MG (LYRICA) CAP PO SCH ×2 (08:01→21:45)
[2022-08-13] MEDS: DULoxetine 30 MG (CYMBALTA) CAP PO SCH (08:01)
[2022-08-13] MEDS: PANTOPRAZOLE 20 MG TABLET (PROTONIX) PO SCH (08:02)
[2022-08-13] MEDS: DOCUSATE SODIUM 100 MG (COLACE) CAP PO SCH ×2 (08:02→21:45)
[2022-08-13] MEDS: meTOprolol TARTRATE 50 MG (LOPRESSOR) TAB PO SCH ×2 (08:02→18:30)
[2022-08-13] MEDS: ENOXAPARIN 40 MG/0.4 ML (LOVENOX) SYR SC SCH (08:02)
[2022-08-13] MEDS: metFORMIN 500 MG (GLUCOPHAGE) TAB PO SCH ×2 (08:02→18:32)
[2022-08-13] MEDS: polyethylene glycoL POWDER 17 GM (MIRALAX) PACK PO SCH ×2 (08:04→21:45)
[2022-08-13] MEDS: REXULTI 0.5 MG PO SCH (08:08)
--- NOTE | 2022-08-13 10:56 | Physical Therapy Daily Note ---
PT Daily Note-Current Subjective Pt asleep in recliner upon arrival. Pt agrees to PT. Pain Numeric Pain Scale: 2 Location: Incisional Location Body Site: Back Pain Description: Ache Section J - Health Conditions 1. Rarely or not at all 2. Occasionally 3. Frequently 4. Almost constantly 8. Unable to answer Pain Effect on Sleep: 2 Pain Interference with Therapy: 2 Pain Interference w/Day-to-Day: 2 Mental Status Patient Orientation: Person, Place, Time, Situation Attachments: Other-See Comments (TLSO Brace) Transfers SCALE: Activities may be completed with or without assistive devices. 4-Pcvyznulcu-uvpstwz completes the activity by him/herself with no assistance from a helper. 5-Set-up or Clean-up Assistance-helper sets up or cleans up; patient completes activity. [place] assists only prior to or following the activity. 4-Supervision or Touching Assistance-helper provides verbal cues and/or touching/steadying and/or contact guard assistance as patient completes activity. Assistance may be provided throughout the activity or intermittently. 3-Partial/Moderate Assistance-helper does LESS THAN HALF the effort. [place] lifts, holds or supports trunk or limbs, but provides less than half the effort. 2-Substantial/Maximal Assistance-helper does MORE THAN HALF the effort. [place] lifts or holds trunk or limbs and provides more than half the effort. 6-Iqfjncpuw-zkkpjr does ALL the effort. Patient does none of the effort to complete the activity. Or, the assistance of 2 or more helpers is required for the patient to complete the activity. If activity was not attempted, code reason: 7-Patient Refused. 9-Not Applicable-not attempted and the patient did not perform the activity before the current illness, exacerbation or injury. 10-Not Attempted due to Environmental Limitations-(lack of equipment, weather restraints, etc.). 88-Not Attempted due to Medical Conditions or Safety Concerns. Sit to Stand (QC): 4 Toilet Transfer (QC): 4 Weight Bearing Full Weight Bearing Full Weight Bearing back precautions Gait Training Does the Patient Walk?: Yes Distance: 100' x2 Walk 10 feet (QC): 4 Walk 50 ft with 2 Turns(QC): 4 Gait Persons Needed: 1 Gait Assistive Device: FWW Exercises Seated Therapy Exercises: Ankle pumps, Long arc quads, Hip flexion, Hip abd/add, Glut set Seated Reps: 15 NuStep Minutes: 5 NuStep Workload: 1 Treatments TF from bed to EOB then dons TLSO & AFOs as well as shoes. Pt stands then uses BR before amb in hallway. Pt completes Seated Ex followed by using NuStep before reporting fatigue & pain and needs rest. Pt amb in hallway and returns to room to rest in recliner. All needs met, call light in hand. Assessment Current Status: Good Progress Pt is gaining strength and decreased pain demonstrated by improvement with TF and amb. PT Snf Goals Snf Goals PT Pocket Builder Goals Time Frame: Aug 23, 2022 Roll Left & Right (QC): 6 Sit to Lying (QC): 4 Lying-Sitting on Side/Bed(QC): 4 Sit to Stand (QC): 4 Chair/[place] Xfer(QC): 4 Toilet Transfer (QC): 4 Car Transfer (QC): 4 Does the Patient Walk: Yes Walk 10 feet (QC): 4 Walk 50ft with 2 Turns (QC): 4 Walk 150 ft (QC): 4 Walking 10ft on Uneven Surface: 4 1 Step (curb) (QC): 4 4 Steps (QC): 4 12 Steps (QC): 88 Picking up an Object (QC): 4 Wheel 50 feet with 2 turns (QC: 9 Wheel 150 feet: 9 PT Plan Problem List Problem List: Activity Tolerance Treatment/Plan Treatment Plan: Continue Plan of Care Treatment Plan: Bed Mobility, Education, Functional Activity Héctor, Functional Strength, Group Therapy, Gait, Safety, Therapeutic Exercise, Transfers Treatment Duration: Aug 23, 2022 Frequency: At least 5 of 7 days/Wk (IRF) Estimated Hrs Per Day: 1.5 hours per day Patient and/or Family Agrees t: Yes Safety Risks/Education Patient Education: Gait Training, Correct Positioning, Reviewed Don/Doff Brace Teaching Recipient: Patient Teaching Methods: Discussion Response to Teaching: Verbalize Understanding Time Time In: 1015 Time Out: 1100 DATE: Aug 13, 2022 Total Billed Treatment Time: 45 Total Billed Treatment 1, GT (20m) & EX x2 (25m) AUBREE ÁLVAREZ MAGAZINE REPAIRER Aug 13, 2022 10:56
--- NOTE | 2022-08-13 11:26 | Occupational Ther Daily Note ---
OT Current Status-Daily Note Subjective Pt sleeping in bed, woke to name though took a while to fully wake. Pt agrees to therapy. No c/o pain. Mental Status/Objective Patient Orientation: Person, Place, Time, Situation Attachments: Other-See Comments (TLSO) ADL-Treatment Supine to EOB independent with HOB slightly raised. Set up for donning/doffing socks, shoes and AFOs. Pt uses leg rubber tire and tubes supervisor to elevate B feet into a figure 4 technique to complete footwear. Assistance to PRIETO wrap lower legs/feet due to edema. Pt ambulated to sink with close SBA for safety to complete oral care by self. Therapy Code Descriptions/Definitions Functional [place] Measure: 0=Not Assessed/NA 4=Minimal Assistance 1=Total Assistance 5=Supervision or Setup 2=Maximal Assistance 6=Modified [place] 3=Moderate Assistance 7=Complete IndependenceSCALE: Activities may be completed with or without assistive devices. 3-Uendyndvqf-lsvdnwc completes the activity by him/herself with no assistance from a helper. 5-Set-up or Clean-up Assistance-helper sets up or cleans up; patient completes activity. [place] assists only prior to or following the activity. 4-Supervision or Touching Assistance-helper provides verbal cues and/or touching/steadying and/or contact guard assistance as patient completes activity. Assistance may be provided throughout the activity or intermittently. 3-Partial/Moderate Assistance-helper does LESS THAN HALF the effort. [place] lifts, holds or supports trunk or limbs, but provides less than half the effort. 2-Substantial/Maximal Assistance-helper does MORE THAN HALF the effort. [place] lifts or holds trunk or limbs and provides more than half the effort. 5-Uvjgglydm-nepime does ALL the effort. Patient does none of the effort to complete the activity. Or, the assistance of 2 or more helpers is required for the patient to complete the activity. If activity was not attempted, code reason: 7-Patient Refused. 9-Not Applicable-not attempted and the patient did not perform the activity before the current illness, exacerbation or injury. 10-Not Attempted due to Environmental Limitations-(lack of equipment, weather restraints, etc.). 88-Not Attempted due to Medical Conditions or Safety Concerns. Oral Hygiene (QC): 4 On/Off Footwear: 3 Other Treatment Pt ambulated to therapy gym to complete B UE exercises for gross and fine motor strengthening. Pt tolerated all exercises well and was able to complete without recovery breaks. Skilled instruction given for correct technique and modifications when needed. After session, video surveillance technician ambulated pt back to room. All needs met. OT Short Term Goals Short Term Goals Time Frame: Aug 23, 2022 Shower/bathe self: 4 Upper body dressin Lower body dressin Putting on/taking off footwear: 4 OT Retirement Goals Community Relations Rep Goals Time Frame: Sep 06, 2022 Acute change in mental status: 0 Inattention: 0 Disorganized thinkin Altered level of consciousness: 0 Eating (QC): 6 Oral Hygiene (QC): 6 Toileting Hygiene (QC): 6 Shower/Bathe Self (QC): 6 Upper Body Dressing (QC): 6 Lower Body Dressing (QC): 6 On/Off Footwear (QC): 6 Additional Goals: 1-Demonstrate ADL Tasks, 2-Verbalize Understanding, 3- ImproveStrength/Héctor 1=Demonstrate adherence to instructed precautions during ADL tasks. 2=Patient will verbalize/demonstrate understanding of assistive devices/modifications for ADL. 3=Patient will improve strength/tolerance for activity to enable patient to perform ADL's. OT Education/Plan Problem List/Assessment Assessment: Decreased Activ Tolerance, Decreased UE Strength, Impaired Funct Balance, Impaired Self-Care Skills, Restricted Funct UE ROM Discharge Recommendations Plan/Recommendations: Continue POC Treatment Plan/Plan of Care Patient would benefit from OT for education, treatment and training to promote independence in ADL's, mobility, safety and/or upper extremity function for ADL's. Plan of Care: ADL Retraining, Functional Mobility, Group Exercise/Act as Ind, UE Funct Exercise/Act Treatment Duration: Sep 06, 2022 Frequency: At least 5 of 7 days/Wk (IRF) Estimated Hrs Per Day: 1.5 hours per day Agreement: Yes Rehab Potential: Fair Time Start Time: 09:00 Stop Time: 10:00 DATE: Aug 13, 2022 Total Time Billed (hr/min): 60 Billed Treatment Time 1 visit-ADL 3 (40 min) EX 1 (20 min) JAS GARCIA Aug 13, 2022 11:26
--- NOTE | 2022-08-13 16:02 | Therapy Group Daily Note ---
Therapy Daily Group Note Patient Education Topic Other List Below (Adaptive Equipment) Exercises LE Seated Exercise, UE Exercise Session Ratio (pt:therapist): 3:1 Goal of Session: UE/LE Strengthing, Use of Adaptive Equipment Goal Met for this Session: Yes Pt Benefit of Group: Contributions to Others, F/U Use of Strategies @Home, Increased Functional Safety, Increased Functional Strength, Improved Cognition, Recognition of Peers, Socialization Other/Notes Pt ambulated using FWW to OT/PT group. Group consisted of introductions (name, favorite summer food), socialization, B UE/LE seated exercises and educational topic of AE for daily functional tasks. Pt introduced self appropriately and activity listened to peers. Pt tolerated B UE/LE movement activities well. Pt voiced own strategies and opinions about educational topic to acknowledge understanding. After therapy, pt laying Supine in bed with call light/phone in reach. All needs met in room. Start Time: 13:00 Stop Time: 14:15 Total Billed Treatment Time: 75 Total Billed Treatment 1,AUBREE STRONG PTA Aug 13, 2022 16:02
[2022-08-13 18:30] VITALS: BP 108/61
[2022-08-13 20:30] VITALS: BP 120/63
[2022-08-13] MEDS: CYCLOBENZAPRINE 10 MG (FLEXERIL) TAB PO SCH (21:45)
[2022-08-13] MEDS: MELATONIN 3 MG TABLET PO PRN (21:45)
[2022-08-14] MEDS: KCL 10 MEQ TAB (MICRO K) PO SCH (07:03)
[2022-08-14] MEDS: SEMAGLUTIDE PO SCH ×2 (07:03→07:53)
[2022-08-14] MEDS: CYANOCOBALAMIN 1,000 MCG (VITAMIN B-12) TABLET PO SCH (07:03)
[2022-08-14] MEDS: CATHETER FLUSH 10 ML SYR IVP SCH ×3 (07:03→21:47)
[2022-08-14] MEDS: MULTIVIT W/MINERALS TAB (THERAGRAN M) PO SCH (07:04)
[2022-08-14] MEDS: DULoxetine 30 MG (CYMBALTA) CAP PO SCH (07:51)
[2022-08-14] MEDS: LORATADINE (CLARITIN) 10 MG TAB PO SCH (07:51)
[2022-08-14] MEDS: meTOprolol TARTRATE 50 MG (LOPRESSOR) TAB PO SCH ×2 (07:51→17:24)
[2022-08-14] MEDS: ENOXAPARIN 40 MG/0.4 ML (LOVENOX) SYR SC SCH (07:51)
[2022-08-14] MEDS: PANTOPRAZOLE 20 MG TABLET (PROTONIX) PO SCH (07:51)
[2022-08-14] MEDS: SENNA W/DOCUSATE (SENOKOT S) TABLET PO SCH ×2 (07:51→21:45)
[2022-08-14] MEDS: metFORMIN 500 MG (GLUCOPHAGE) TAB PO SCH ×2 (07:51→17:23)
[2022-08-14] MEDS: polyethylene glycoL POWDER 17 GM (MIRALAX) PACK PO SCH ×2 (07:52→21:45)
[2022-08-14] MEDS: PREGABALIN 75 MG (LYRICA) CAP PO SCH ×2 (07:52→21:46)
[2022-08-14] MEDS: DOCUSATE SODIUM 100 MG (COLACE) CAP PO SCH ×2 (07:52→21:45)
[2022-08-14] MEDS: IRON SUCROSE 200 MG/10 ML (VENOFER) VIAL IV SCH (07:52)
[2022-08-14 08:00] VITALS: BP 117/77
[2022-08-14] MEDS: REXULTI 0.5 MG PO SCH (08:00)
--- NOTE | 2022-08-14 08:51 | PM&R Progress Note ---
Subjective HPI/CC On Admission Date Seen by Provider: Aug 14, 2022 Time Seen by Provider: 09:00 Subjective/Events-last exam 08/14/2022: Much improved status Depression noted but he has very complicated mental illness he will certainly require specialty mental health care at [facility] his PCP at [place] No other issues 08/13/2022: Much improved No pain until night time so I added a muscle relaxant to help him sleep too with a pain pill BM+ No falls 08/12/2022: Much improved Moving well Still pale appearing Venofer maintained and tolerated 08/11/2022: No major issues Pale Venofer maintained B12 maintained BM++ 08/10/2022: Improved overall Venofer and B12 given empirically although studies pending BP stable HR stable Eating well Pain controlled No BM yet so will resolve today Review of Systems General: Fatigue, Malaise Objective Exam Vital Signs Vital Signs Date Time Temp Pulse Resp B/P (MAP) Pulse Ox O2 Delivery O2 Flow Rate FiO2 08/14/22 21:35 95 Room Air 08/14/22 20:00 36.1 98 18 115/77 (90) Capillary Refill : General Appearance: No Apparent Distress, WD/WN, Chronically ill, Obese HEENT: PERRL/EOMI, Normal ENT Inspection, Pharynx Normal Neck: Full Range of Motion, Normal Inspection, Non Tender, Supple, Carotid Bruit Respiratory: Chest Non Tender, Lungs Clear, Normal Breath Sounds, No Accessory Muscle Use, No Respiratory Distress Cardiovascular: Regular Rate, Rhythm, No Edema, No Gallop, No JVD, No Murmur, Normal Peripheral Pulses Gastrointestinal: Normal Bowel Sounds, No Organomegaly, No Pulsatile Mass, Non Tender, Soft Back: Normal Inspection, CVA Tenderness (L), CVA Tenderness (R), Decreased Range of Motion, Vertebral Tenderness Extremity: Normal Capillary Refill, Normal Inspection, Normal Range of Motion, Non Tender, No Calf Tenderness, No Pedal Edema Neurologic/Psychiatric: Alert, Oriented x3, milling operator II-XII Norm as Tested, Abnormal Gait, Depressed Affect, Motor Weakness (generalized but lower extremities are very weak) Skin: Normal Color, Warm/Dry Lymphatic: No Adenopathy Results/Procedures Lab Patient resulted labs reviewed. FIM Transfers Therapy Code Descriptions/Definitions Functional [place] Measure: 0=Not Assessed/NA 4=Minimal Assistance 1=Total Assistance 5=Supervision or Setup 2=Maximal Assistance 6=Modified [place] 3=Moderate Assistance 7=Complete IndependenceSCALE: Activities may be completed with or without assistive devices. 5-Flasxhobvk-fsezsft completes the activity by him/herself with no assistance from a helper. 5-Set-up or Clean-up Assistance-helper sets up or cleans up; patient completes activity. [place] assists only prior to or following the activity. 4-Supervision or Touching Assistance-helper provides verbal cues and/or touching/steadying and/or contact guard assistance as patient completes activity. Assistance may be provided throughout the activity or intermittently. 3-Partial/Moderate Assistance-helper does LESS THAN HALF the effort. [place] lifts, holds or supports trunk or limbs, but provides less than half the effort. 2-Substantial/Maximal Assistance-helper does MORE THAN HALF the effort. [place] lifts or holds trunk or limbs and provides more than half the effort. 1-Pnoeabyxn-iyiqmm does ALL the effort. Patient does none of the effort to comp lete the activity. Or, the assistance of 2 or more helpers is required for the patient to complete the activity. If activity was not attempted, code reason: 7-Patient Refused. 9-Not Applicable-not attempted and the patient did not perform the activity before the current illness, exacerbation or injury. 10-Not Attempted due to Environmental Limitations-(lack of equipment, weather restraints, etc.). 88-Not Attempted due to Medical Conditions or Safety Concerns. Roll Left to Right (QC): 4 Sit to Lying (QC): 3 Sit to Stand (QC): 4 Chair/Gez-kg-Vlsvf Xfer(QC): 4 Car Transfer (QC): 4 Gait Training Does the Patient Walk?: Yes Distance: 100' x2 Walk 10 feet (QC): 4 Walk 50 ft with 2 Turns(QC): 4 Walk 150 ft (QC): 4 Walking 10ft/uneven surface-QC: 4 Gait Persons Needed: 1 Gait Assistive Device: FWW Wheelchair Training Wheel 50 ft with 2 turns (QC): 9 Wheel 150 ft (QC): 9 Stair Training #of Steps: 1 1 Step (curb) (QC): 4 4 Steps (QC): 88 12 Steps (QC): 88 Balance Picking up an Object (QC): 4 (CGA using a cigarette inspector) ADL-Treatment Eating (QC): 6 Oral Hygiene (QC): 4 Shower/Bathe Self (QC): 3 (Min A to wash buttocks for thoroughness. 100% seated on BSC with cut out.) Upper Body Dressing (QC): 5 Lower Body Dressing (QC): 4 On/Off Footwear (QC): 3 Toileting Hygiene (QC): 3 (Mod A, slight assist with pant hike and assist with hygiene.) Assessment/Plan Assessment and Plan Assess & Plan/Chief Complaint Assessment:: Debility following scoliosis correction surgery causing lumbar myelopathy POD # [address] Altamirano h/o long recovery following COVID-19 PNA [facility]/03[facility] Anemia s/p 1 unit of blood at [facility] Morbid obesity improved since last admit HTN HLP Developmental delay/autism s/p decubitus ulcers coccyx and left knee s/p debridement 08/16/20 Dr Santillan Tachycardia due to volume depletion Severe iron def Vit b12 def Plan: PT OT Pain control Home meds Monitor HR and BP 08/10/2022: Monitor closely Venofer B12 08/11/2022: Monitor closely Venofer 08/12/2022: Monitor closely Fall risk 08/13/2022: Add muscle relaxant 08/14/2022: NIMCO santos (1) Lumbar myelopathy HEMANTH DODD DO Aug 14, 2022 08:51
--- NOTE | 2022-08-14 10:17 | Physical Therapy Daily Note ---
PT Daily Note-Current Subjective Pt laying Supine in bed upon arrival. Pt agrees PT. Pt reports not sleeping well again even though he has taken pain med & muscle relaxer last night. Pain Numeric Pain Scale: 4 Location: Incisional Location Body Site: Back Pain Description: Ache Section J - Health Conditions 1. Rarely or not at all 2. Occasionally 3. Frequently 4. Almost constantly 8. Unable to answer Pain Effect on Sleep: 2 Pain Interference with Therapy: 2 Pain Interference w/Day-to-Day: 2 Mental Status Patient Orientation: Person, Place, Situation Attachments: Other-See Comments (TLSO Brace) Transfers SCALE: Activities may be completed with or without assistive devices. 0-Mhgtajowtk-ccmblkm completes the activity by him/herself with no assistance from a helper. 5-Set-up or Clean-up Assistance-helper sets up or cleans up; patient completes activity. [place] assists only prior to or following the activity. 4-Supervision or Touching Assistance-helper provides verbal cues and/or touching/steadying and/or contact guard assistance as patient completes activity. Assistance may be provided throughout the activity or intermittently. 3-Partial/Moderate Assistance-helper does LESS THAN HALF the effort. [place] lifts, holds or supports trunk or limbs, but provides less than half the effort. 2-Substantial/Maximal Assistance-helper does MORE THAN HALF the effort. [place] lifts or holds trunk or limbs and provides more than half the effort. 2-Gshowmxer-aubdxq does ALL the effort. Patient does none of the effort to complete the activity. Or, the assistance of 2 or more helpers is required for the patient to complete the activity. If activity was not attempted, code reason: 7-Patient Refused. 9-Not Applicable-not attempted and the patient did not perform the activity before the current illness, exacerbation or injury. 10-Not Attempted due to Environmental Limitations-(lack of equipment, weather restraints, etc.). 88-Not Attempted due to Medical Conditions or Safety Concerns. Lying to Sitting/Side of Bed(Q: 4 Sit to Stand (QC): 4 Toilet Transfer (QC): 4 Weight Bearing Full Weight Bearing Full Weight Bearing back precautions Gait Training Does the Patient Walk?: Yes Distance: 20' Walk 10 feet (QC): 4 Gait Persons Needed: 1 Gait Assistive Device: FWW Treatments Pt TF from Supine to EOB then dons AFOs, shoes & TLSO before standing. Pt amb to BR for toileting. HOSPITAL HOUSEKEEPER is joined by RIVERA at this time. PT/OT co-treat (1000- 1030), skills of 2 clinicians required to decrease fall risk, increase balance for functional tasks and independence. PT focusing on transfers and ambulation while OT focusing on ADLs and functional mobility. RIVERA & HOSPITAL HOUSEKEEPER aid pt w/TF to shower chair for shower. Pt dresses at end of tx. HOSPITAL HOUSEKEEPER departs at this time, RIVERA continues to work w/pt. Assessment Current Status: Good Progress Pt fatigues during tx needing RB during tx. PT Penitentiary Goals Hog Stomach Preparer Goals PT Hog Stomach Preparer Goals Time Frame: Aug 23, 2022 Roll Left & Right (QC): 6 Sit to Lying (QC): 4 Lying-Sitting on Side/Bed(QC): 4 Sit to Stand (QC): 4 Chair/Yfg-kg-Jaxix Xfer(QC): 4 Toilet Transfer (QC): 4 Car Transfer (QC): 4 Does the Patient Walk: Yes Walk 10 feet (QC): 4 Walk 50ft with 2 Turns (QC): 4 Walk 150 ft (QC): 4 Walking 10ft on Uneven Surface: 4 1 Step (curb) (QC): 4 4 Steps (QC): 4 12 Steps (QC): 88 Picking up an Object (QC): 4 Wheel 50 feet with 2 turns (QC: 9 Wheel 150 feet: 9 PT Plan Problem List Problem List: Activity Tolerance Treatment/Plan Treatment Plan: Continue Plan of Care Treatment Plan: Bed Mobility, Education, Functional Activity Héctor, Functional Strength, Group Therapy, Gait, Safety, Therapeutic Exercise, Transfers Treatment Duration: Aug 23, 2022 Frequency: At least 5 of 7 days/Wk (IRF) Estimated Hrs Per Day: 1.5 hours per day Patient and/or Family Agrees t: Yes Safety Risks/Education Patient Education: Gait Training, Transfer Techniques, Correct Positioning, Safety Issues Teaching Recipient: Patient Teaching Methods: Discussion Response to Teaching: Verbalize Understanding Time Time In: 930 Time Out: 1030 DATE: Aug 14, 2022 Total Billed Treatment Time: 60 Total Billed Treatment Co-treat w/OT [id number] (30m) 1, FA x4 (60m) AUBREE ÁLVAREZ HOSPITAL HOUSEKEEPER Aug 14, 2022 10:17
--- NOTE | 2022-08-14 11:02 | Occupational Ther Daily Note ---
OT Current Status-Daily Note Subjective Pt alert, working with PT. PT/OT co-treat ([id number]), skills of 2 clinicians required to decrease fall risk, increase balance for functional tasks and independence. PT focusing on transfers and ambulation while OT focusing on ADLs and functional mobility. Mental Status/Objective Patient Orientation: Person, Place, Time, Situation Attachments: IV ADL-Treatment Pt agrees to shower. Pt given toilet tongs to increase reach for cleansing buttocks after BM and during shower. Pt able to manipulate clothing for toileting, assist given to cleanse buttocks. Pt able to complete bathing by self sitting 100% of the time on BSC and using grabbars, hand held shower, LH sponge, toilet tongs after set up. Set up for upper body dressing. Utilizing AE for lower body dressing, CGA for safety. Standing at sink, pt completed oral care with supervision. Therapy Code Descriptions/Definitions Functional [place] Measure: 0=Not Assessed/NA 4=Minimal Assistance 1=Total Assistance 5=Supervision or Setup 2=Maximal Assistance 6=Modified [place] 3=Moderate Assistance 7=Complete IndependenceSCALE: Activities may be completed with or without assistive devices. 8-Dbsezrkgxj-gymelpm completes the activity by him/herself with no assistance from a helper. 5-Set-up or Clean-up Assistance-helper sets up or cleans up; patient completes activity. [place] assists only prior to or following the activity. 4-Supervision or Touching Assistance-helper provides verbal cues and/or touching/steadying and/or contact guard assistance as patient completes activity. Assistance may be provided throughout the activity or intermittently. 3-Partial/Moderate Assistance-helper does LESS THAN HALF the effort. [place] lifts, holds or supports trunk or limbs, but provides less than half the effort. 2-Substantial/Maximal Assistance-helper does MORE THAN HALF the effort. [place] lifts or holds trunk or limbs and provides more than half the effort. 4-Jegiltbau-cvjtzy does ALL the effort. Patient does none of the effort to complete the activity. Or, the assistance of 2 or more helpers is required for the patient to complete the activity. If activity was not attempted, code reason: 7-Patient Refused. 9-Not Applicable-not attempted and the patient did not perform the activity before the current illness, exacerbation or injury. 10-Not Attempted due to Environmental Limitations-(lack of equipment, weather restraints, etc.). 88-Not Attempted due to Medical Conditions or Safety Concerns. Shower/Bathe Self (QC): 4 Upper Body Dressing (QC): 5 Lower Body Dressing (QC): 4 Toileting Hygiene (QC): 3 Toilet Transfer (QC): 4 Other Treatment Pt completed B UE fine motor task to increase pinch/grasp for daily functional tasks. Skilled instructions to complete with correct technique and modifications when needed. After session, pt sitting in recliner with call light/phone in reach. All needs met in room. OT Short Term Goals Short Term Goals Time Frame: Aug 23, 2022 Shower/bathe self: 4 Upper body dressin Lower body dressin Putting on/taking off footwear: 4 OT Long-Term Goals Long-Term Goals Time Frame: Sep 06, 2022 Acute change in mental status: 0 Inattention: 0 Disorganized thinkin Altered level of consciousness: 0 Eating (QC): 6 Oral Hygiene (QC): 6 Toileting Hygiene (QC): 6 Shower/Bathe Self (QC): 6 Upper Body Dressing (QC): 6 Lower Body Dressing (QC): 6 On/Off Footwear (QC): 6 Additional Goals: 1-Demonstrate ADL Tasks, 2-Verbalize Understanding, 3- ImproveStrength/Héctor 1=Demonstrate adherence to instructed precautions during ADL tasks. 2=Patient will verbalize/demonstrate understanding of assistive devices/modifications for ADL. 3=Patient will improve strength/tolerance for activity to enable patient to perform ADL's. OT Education/Plan Problem List/Assessment Assessment: Decreased Activ Tolerance, Decreased UE Strength, Impaired Funct Balance, Impaired Self-Care Skills Discharge Recommendations Plan/Recommendations: Continue POC Treatment Plan/Plan of Care Patient would benefit from OT for education, treatment and training to promote independence in ADL's, mobility, safety and/or upper extremity function for ADL's. Plan of Care: ADL Retraining, Functional Mobility, Group Exercise/Act as Ind, UE Funct Exercise/Act Treatment Duration: Sep 06, 2022 Frequency: At least 5 of 7 days/Wk (IRF) Estimated Hrs Per Day: 1.5 hours per day Agreement: Yes Rehab Potential: Fair Time Start Time: 10:00 Stop Time: 11:00 DATE: Aug 14, 2022 Total Time Billed (hr/min): 60 Billed Treatment Time 1 visit-ADL 3 (40 min) EX 1 (20 min) Co-treat with PT [id number], individual [id number] JAS GARCIA Aug 14, 2022 11:02
--- NOTE | 2022-08-14 13:37 | Physical Therapy Daily Note ---
PT Daily Note-Current Subjective Pt sitting in recliner upon arrival. Pt agrees to PT but reports fatigue. Pain Location: No Pain Reported Section J - Health Conditions 1. Rarely or not at all 2. Occasionally 3. Frequently 4. Almost constantly 8. Unable to answer Pain Effect on Sleep: 2 Pain Interference with Therapy: 2 Pain Interference w/Day-to-Day: 2 Mental Status Patient Orientation: Person, Place, Time, Situation Attachments: Other-See Comments (TLSO Brace) Transfers SCALE: Activities may be completed with or without assistive devices. 2-Ugimflgiep-qrbyhnt completes the activity by him/herself with no assistance from a helper. 5-Set-up or Clean-up Assistance-helper sets up or cleans up; patient completes activity. [place] assists only prior to or following the activity. 4-Supervision or Touching Assistance-helper provides verbal cues and/or touching/steadying and/or contact guard assistance as patient completes activity. Assistance may be provided throughout the activity or intermittently. 3-Partial/Moderate Assistance-helper does LESS THAN HALF the effort. [place] lifts, holds or supports trunk or limbs, but provides less than half the effort. 2-Substantial/Maximal Assistance-helper does MORE THAN HALF the effort. [place] lifts or holds trunk or limbs and provides more than half the effort. 6-Cjknfllgi-pzdrni does ALL the effort. Patient does none of the effort to complete the activity. Or, the assistance of 2 or more helpers is required for the patient to complete the activity. If activity was not attempted, code reason: 7-Patient Refused. 9-Not Applicable-not attempted and the patient did not perform the activity before the current illness, exacerbation or injury. 10-Not Attempted due to Environmental Limitations-(lack of equipment, weather restraints, etc.). 88-Not Attempted due to Medical Conditions or Safety Concerns. Weight Bearing Full Weight Bearing Full Weight Bearing back precautions Exercises Supine Ex: Ankle pumps, Quad Set, Heel Slides, Straight leg raise, Hip abd/add Supine Reps: 15 Seated Therapy Exercises: Ankle pumps, Long arc quads, Hip flexion, Hip abd/add, Glut set Seated Reps: 15 Treatments Pt completes Supine & Seated EX at recliner level w/RB as needed. Pt resting at end of tx w/all needs met, call light in hand. Assessment Current Status: Good Progress Pt reports fatigue and slight increase in discomfort in back w/EX. PT Analyst Programmer Goals Analyst Programmer Goals PT Analyst Programmer Goals Time Frame: Aug 23, 2022 Roll Left & Right (QC): 6 Sit to Lying (QC): 4 Lying-Sitting on Side/Bed(QC): 4 Sit to Stand (QC): 4 Chair/Oxn-xs-Xsdak Xfer(QC): 4 Toilet Transfer (QC): 4 Car Transfer (QC): 4 Does the Patient Walk: Yes Walk 10 feet (QC): 4 Walk 50ft with 2 Turns (QC): 4 Walk 150 ft (QC): 4 Walking 10ft on Uneven Surface: 4 1 Step (curb) (QC): 4 4 Steps (QC): 4 12 Steps (QC): 88 Picking up an Object (QC): 4 Wheel 50 feet with 2 turns (QC: 9 Wheel 150 feet: 9 PT Plan Problem List Problem List: Activity Tolerance Treatment/Plan Treatment Plan: Continue Plan of Care Treatment Plan: Bed Mobility, Education, Functional Activity Héctor, Functional Strength, Group Therapy, Gait, Safety, Therapeutic Exercise, Transfers Treatment Duration: Aug 23, 2022 Frequency: At least 5 of 7 days/Wk (IRF) Estimated Hrs Per Day: 1.5 hours per day Patient and/or Family Agrees t: Yes Time Time In: 1130 Time Out: 1200 DATE: Aug 14, 2022 Total Billed Treatment Time: 30 Total Billed Treatment 1, EX x2 (30m) AUBREE ÁLVAREZ PTA Aug 14, 2022 13:37
--- NOTE | 2022-08-14 14:01 | Occupational Ther Daily Note ---
OT Current Status-Daily Note Subjective Pt alert, sitting EOB. Pt agrees to therapy. No c/o pain. Mental Status/Objective Patient Orientation: Person, Place, Time, Situation Attachments: IV, Other-See Comments (TLSO) ADL-Treatment After set up, pt completes footwear by self using AE. Takes increased time to complete footwear. Pt able to ambulate using FWW to therapy gym with CGA for safety. Therapy Code Descriptions/Definitions Functional [place] Measure: 0=Not Assessed/NA 4=Minimal Assistance 1=Total Assistance 5=Supervision or Setup 2=Maximal Assistance 6=Modified [place] 3=Moderate Assistance 7=Complete IndependenceSCALE: Activities may be completed with or without assistive devices. 7-Tfcukyqmdq-nlxpvzt completes the activity by him/herself with no assistance from a helper. 5-Set-up or Clean-up Assistance-helper sets up or cleans up; patient completes activity. [place] assists only prior to or following the activity. 4-Supervision or Touching Assistance-helper provides verbal cues and/or touching/steadying and/or contact guard assistance as patient completes activity. Assistance may be provided throughout the activity or intermittently. 3-Partial/Moderate Assistance-helper does LESS THAN HALF the effort. [place] lifts, holds or supports trunk or limbs, but provides less than half the effort. 2-Substantial/Maximal Assistance-helper does MORE THAN HALF the effort. [place] lifts or holds trunk or limbs and provides more than half the effort. 2-Xoeqoryqg-urfsfk does ALL the effort. Patient does none of the effort to complete the activity. Or, the assistance of 2 or more helpers is required for the patient to complete the activity. If activity was not attempted, code reason: 7-Patient Refused. 9-Not Applicable-not attempted and the patient did not perform the activity before the current illness, exacerbation or injury. 10-Not Attempted due to Environmental Limitations-(lack of equipment, weather restraints, etc.). 88-Not Attempted due to Medical Conditions or Safety Concerns. On/Off Footwear: 6 Other Treatment Pt completed standing balance task using FWW for support with one arm while grasp/swing/release without LOB. Pt able to toss item with 50% accuracy. After therapy, pt lying in bed with call light/phone in reach. All needs met in room. OT Short Term Goals Short Term Goals Time Frame: Aug 23, 2022 Shower/bathe self: 4 Upper body dressin Lower body dressin Putting on/taking off footwear: 4 OT Intermediate Goals Marine Painter Goals Time Frame: Sep 06, 2022 Acute change in mental status: 0 Inattention: 0 Disorganized thinkin Altered level of consciousness: 0 Eating (QC): 6 Oral Hygiene (QC): 6 Toileting Hygiene (QC): 6 Shower/Bathe Self (QC): 6 Upper Body Dressing (QC): 6 Lower Body Dressing (QC): 6 On/Off Footwear (QC): 6 Additional Goals: 1-Demonstrate ADL Tasks, 2-Verbalize Understanding, 3-Imp roveStrength/Héctor 1=Demonstrate adherence to instructed precautions during ADL tasks. 2=Patient will verbalize/demonstrate understanding of assistive devices/modifications for ADL. 3=Patient will improve strength/tolerance for activity to enable patient to perform ADL's. OT Education/Plan Problem List/Assessment Assessment: Decreased Activ Tolerance, Impaired Coordination, Impaired Funct Balance, Impaired Self-Care Skills Discharge Recommendations Plan/Recommendations: Continue POC Treatment Plan/Plan of Care Patient would benefit from OT for education, treatment and training to promote independence in ADL's, mobility, safety and/or upper extremity function for ADL's. Plan of Care: ADL Retraining, Functional Mobility, Group Exercise/Act as Ind, UE Funct Exercise/Act Treatment Duration: Sep 06, 2022 Frequency: At least 5 of 7 days/Wk (IRF) Estimated Hrs Per Day: 1.5 hours per day Agreement: Yes Rehab Potential: Fair Time Start Time: 13:00 Stop Time: 13:40 DATE: Aug 14, 2022 Total Time Billed (hr/min): 40 Billed Treatment Time 1 visit-ADL 1 (15 min) FA 1 (10 min) EX 1 (15 min) JAS GARCIA Aug 14, 2022 14:01
[2022-08-14 20:00] VITALS: BP 115/77
[2022-08-14] MEDS: CYCLOBENZAPRINE 10 MG (FLEXERIL) TAB PO SCH (21:46)
--- NOTE | 2022-08-15 05:08 | PM&R Progress Note ---
Subjective HPI/CC On Admission Date Seen by Provider: Aug 15, 2022 Time Seen by Provider: 12:00 Subjective/Events-last exam 08/15/2022: No major issues No pain reported No falls Improved sleep last night 08/14/2022: Much improved status Depression noted but he has very complicated mental illness he will certainly require specialty mental health care at [facility] his PCP at [place] No other issues 08/13/2022: Much improved No pain until night time so I added a muscle relaxant to help him sleep too with a pain pill BM+ No falls 08/12/2022: Much improved Moving well Still pale appearing Venofer maintained and tolerated 08/11/2022: No major issues Pale Venofer maintained B12 maintained BM++ 08/10/2022: Improved overall Venofer and B12 given empirically although studies pending BP stable HR stable Eating well Pain controlled No BM yet so will resolve today Review of Systems General: Fatigue, Malaise Objective Exam Vital Signs Vital Signs Date Time Temp Pulse Resp B/P (MAP) Pulse Ox O2 Delivery O2 Flow Rate FiO2 08/15/22 20:20 35.8 86 16 117/78 (91) 98 Room Air Capillary Refill : General Appearance: No Apparent Distress, WD/WN, Chronically ill, Obese HEENT: PERRL/EOMI, Normal ENT Inspection, Pharynx Normal Neck: Full Range of Motion, Normal Inspection, Non Tender, Supple, Carotid Bruit Respiratory: Chest Non Tender, Lungs Clear, Normal Breath Sounds, No Accessory Muscle Use, No Respiratory Distress Cardiovascular: Regular Rate, Rhythm, No Edema, No Gallop, No JVD, No Murmur, Normal Peripheral Pulses Gastrointestinal: Normal Bowel Sounds, No Organomegaly, No Pulsatile Mass, Non Tender, Soft Back: Normal Inspection, CVA Tenderness (L), CVA Tenderness (R), Decreased Range of Motion, Vertebral Tenderness Extremity: Normal Capillary Refill, Normal Inspection, Normal Range of Motion, Non Tender, No Calf Tenderness, No Pedal Edema Neurologic/Psychiatric: Alert, Oriented x3, collar packer II-XII Norm as Tested, Abnormal Gait, Depressed Affect, Motor Weakness (generalized but lower extremities are very weak) Skin: Normal Color, Warm/Dry Lymphatic: No Adenopathy Results/Procedures Lab Patient resulted labs reviewed. FIM Transfers Therapy Code Descriptions/Definitions Functional [place] Measure: 0=Not Assessed/NA 4=Minimal Assistance 1=Total Assistance 5=Supervision or Setup 2=Maximal Assistance 6=Modified [place] 3=Moderate Assistance 7=Complete IndependenceSCALE: Activities may be completed with or without assistive devices. 7-Jtajulzehl-cobapjd completes the activity by him/herself with no assistance from a helper. 5-Set-up or Clean-up Assistance-helper sets up or cleans up; patient completes activity. [place] assists only prior to or following the activity. 4-Supervision or Touching Assistance-helper provides verbal cues and/or touching/steadying and/or contact guard assistance as patient completes activity. Assistance may be provided throughout the activity or intermittently. 3-Partial/Moderate Assistance-helper does LESS THAN HALF the effort. [place] lifts, holds or supports trunk or limbs, but provides less than half the effort. 2-Substantial/Maximal Assistance-helper does MORE THAN HALF the effort. [place] lifts or holds trunk or limbs and provides more than half the effort. 8-Khfxaxeuj-ybjvjc does ALL the effort. Patient does none of the effort to complete the activity. Or, the assistance of 2 or more helpers is required for the patient to complete the activity. If activity was not attempted, code reason: 7-Patient Refused. 9-Not Applicable-not attempted and the patient did not perform the activity before the current illness, exacerbation or injury. 10-Not Attempted due to Environmental Limitations-(lack of equipment, weather restraints, etc.). 88-Not Attempted due to Medical Conditions or Safety Concerns. Roll Left to Right (QC): 4 Sit to Lying (QC): 3 Sit to Stand (QC): 4 Chair/Lmc-uq-Airis Xfer(QC): 4 Car Transfer (QC): 4 Gait Training Does the Patient Walk?: Yes Distance: 20' Walk 10 feet (QC): 4 Walk 50 ft with 2 Turns(QC): 4 Walk 150 ft (QC): 4 Walking 10ft/uneven surface-QC: 4 Gait Persons Needed: 1 Gait Assistive Device: FWW Wheelchair Training Does the Pt Use a Wheelchair?: No Wheel 50 ft with 2 turns (QC): 9 Wheel 150 ft (QC): 9 Type of Wheelchair: N/A Stair Training #of Steps: 1 1 Step (curb) (QC): 4 4 Steps (QC): 88 12 Steps (QC): 88 Balance Picking up an Object (QC): 4 (CGA using a lead mobile developer) ADL-Treatment Eating (QC): 6 Oral Hygiene (QC): 4 Shower/Bathe Self (QC): 4 Upper Body Dressing (QC): 5 Lower Body Dressing (QC): 4 On/Off Footwear (QC): 6 Toileting Hygiene (QC): 3 Toilet Transfer (QC): 4 Assessment/Plan Assessment and Plan Assess & Plan/Chief Complaint Assessment:: Debility following scoliosis correction surgery causing lumbar myelopathy per Dr Altamirano h/o long recovery following COVID-19 PNA 06/03/20 required correction admit after failing ARU Anemia s/p 1 unit of blood at [facility] Morbid obesity improved since last admit HTN HLP Developmental delay/autism s/p decubitus ulcers coccyx and left knee s/p debridement 08/16/20 Dr Santillan Tachycardia due to volume depletion Severe iron def Vit b12 def Plan: PT OT Pain control Home meds Monitor HR and BP 08/10/2022: Monitor closely Venofer B12 08/11/2022: Monitor closely Venofer 08/12/2022: Monitor closely Fall risk 08/13/2022: Add muscle relaxant 08/14/2022: DC accuchecks 08/15/2022: Monitor pain (1) Lumbar myelopathy HEMANTH DODD DO Aug 15, 2022 05:07
[2022-08-15] MEDS: CATHETER FLUSH 10 ML SYR IVP SCH ×3 (06:53→21:18)
[2022-08-15] MEDS: SEMAGLUTIDE PO SCH (06:54)
[2022-08-15] MEDS: MULTIVIT W/MINERALS TAB (THERAGRAN M) PO SCH (06:54)
[2022-08-15] MEDS: CYANOCOBALAMIN 1,000 MCG (VITAMIN B-12) TABLET PO SCH (06:54)
[2022-08-15] MEDS: KCL 10 MEQ TAB (MICRO K) PO SCH (06:54)
[2022-08-15 07:47] VITALS: BP 123/71
[2022-08-15] MEDS: meTOprolol TARTRATE 50 MG (LOPRESSOR) TAB PO SCH ×2 (08:09→17:13)
[2022-08-15] MEDS: metFORMIN 500 MG (GLUCOPHAGE) TAB PO SCH ×2 (08:09→17:13)
[2022-08-15] MEDS: LORATADINE (CLARITIN) 10 MG TAB PO SCH (08:09)
[2022-08-15] MEDS: PREGABALIN 75 MG (LYRICA) CAP PO SCH ×2 (08:09→20:47)
[2022-08-15] MEDS: DULoxetine 30 MG (CYMBALTA) CAP PO SCH (08:09)
[2022-08-15] MEDS: PANTOPRAZOLE 20 MG TABLET (PROTONIX) PO SCH (08:09)
[2022-08-15] MEDS: REXULTI 0.5 MG PO SCH (08:10)
[2022-08-15] MEDS: ENOXAPARIN 40 MG/0.4 ML (LOVENOX) SYR SC SCH (08:12)
[2022-08-15] MEDS: DOCUSATE SODIUM 100 MG (COLACE) CAP PO SCH ×2 (08:13→20:50)
[2022-08-15] MEDS: polyethylene glycoL POWDER 17 GM (MIRALAX) PACK PO SCH ×2 (08:13→20:51)
[2022-08-15] MEDS: SENNA W/DOCUSATE (SENOKOT S) TABLET PO SCH ×2 (08:13→20:51)
--- NOTE | 2022-08-15 08:55 | Physical Therapy Daily Note ---
PT Daily Note-Current Subjective Pt. fast asleep upon entering Rx, easily awakened and states he had a good brkfst and is ready to work. States he has pain at 2/10 at rest in supine and escalates to 4/10 with activity but quickly back down to 2/10 at rest after Rx. Pt friendly and shares his medical hx Pain Numeric Pain Scale: 2 Location: Medial Location Body Site: Back Pain Description: Ache Section J - Health Conditions 1. Rarely or not at all 2. Occasionally 3. Frequently 4. Almost constantly 8. Unable to answer Pain Effect on Sleep: 2 Pain Interference with Therapy: 2 Pain Interference w/Day-to-Day: 2 Mental Status Patient Orientation: Normal For Age Attachments: Other-See Comments (AFOs, TLSO) Transfers SCALE: Activities may be completed with or without assistive devices. 0-Zuxrnvrdne-onhxxgr completes the activity by him/herself with no assistance from a helper. 5-Set-up or Clean-up Assistance-helper sets up or cleans up; patient completes activity. [place] assists only prior to or following the activity. 4-Supervision or Touching Assistance-helper provides verbal cues and/or touching/steadying and/or contact guard assistance as patient completes activity. Assistance may be provided throughout the activity or intermittently. 3-Partial/Moderate Assistance-helper does LESS THAN HALF the effort. [place] lifts, holds or supports trunk or limbs, but provides less than half the effort. 2-Substantial/Maximal Assistance-helper does MORE THAN HALF the effort. [place] lifts or holds trunk or limbs and provides more than half the effort. 3-Jlgftlkjh-tikord does ALL the effort. Patient does none of the effort to complete the activity. Or, the assistance of 2 or more helpers is required for the patient to complete the activity. If activity was not attempted, code reason: 7-Patient Refused. 9-Not Applicable-not attempted and the patient did not perform the activity before the current illness, exacerbation or injury. 10-Not Attempted due to Environmental Limitations-(lack of equipment, weather restraints, etc.). 88-Not Attempted due to Medical Conditions or Safety Concerns. Roll Left & Right (QC): 6 Lying to Sitting/Side of Bed(Q: 6 (HOB partially up) Sit to Stand (QC): 5 Chair/Muq-ln-Hicim Xfer(QC): 6 reminders to use hands on arms of chair etc Weight Bearing Full Weight Bearing Full Weight Bearing back precautions Gait Training Does the Patient Walk?: Yes Walk 10 feet (QC): 4 Walk 50 ft with 2 Turns(QC): 4 Walk 150 ft (QC): 4 Gait Persons Needed: 1 Gait Assistive Device: FWW 165 ft x 2, fig 8s x4 , side step a little, heavy wt bearing on FWW Wheelchair Training Does the Pt Use a Wheelchair?: No Exercises Supine Ex: Ankle pumps (HC stretches), Quad Set, Rolling, Glut sets, Heel Slides, Short Arc Quads, Scooting, Hip abd/add Supine Reps: 12 Seated Therapy Exercises: Ankle pumps, Sit to stand, Long arc quads, Hip flexion, Hip abd/add Seated Reps: 12 Treatments sup and sit LE ex, TRFs, gait, balance, safety, pt. required assist to renu AFOs, donns TLSO 90% indep Assessment Current Status: Good Progress decreased pain, increased funct mob PT Poker Prop Player Goals Poker Prop Player Goals PT Poker Prop Player Goals Time Frame: Aug 23, 2022 Roll Left & Right (QC): 6 Sit to Lying (QC): 4 Lying-Sitting on Side/Bed(QC): 4 Sit to Stand (QC): 4 Chair/Yxj-yv-Txygu Xfer(QC): 4 Toilet Transfer (QC): 4 Car Transfer (QC): 4 Does the Patient Walk: Yes Walk 10 feet (QC): 4 Walk 50ft with 2 Turns (QC): 4 Walk 150 ft (QC): 4 Walking 10ft on Uneven Surface: 4 1 Step (curb) (QC): 4 4 Steps (QC): 4 12 Steps (QC): 88 Picking up an Object (QC): 4 Wheel 50 feet with 2 turns (QC: 9 Wheel 150 feet: 9 PT Plan Treatment/Plan Treatment Plan: Continue Plan of Care Treatment Plan: Bed Mobility, Education, Functional Activity Héctor, Functional Strength, Group Therapy, Gait, Safety, Therapeutic Exercise, Transfers Treatment Duration: Aug 23, 2022 Frequency: At least 5 of 7 days/Wk (IRF) Estimated Hrs Per Day: 1.5 hours per day Patient and/or Family Agrees t: Yes Safety Risks/Education Patient Education: Gait Training, Transfer Techniques, Reviewed Precautions, Correct Positioning, Reviewed Don/Doff Brace, Disease Process, Safety Issues Teaching Recipient: Patient Teaching Methods: Demonstration, Discussion Response to Teaching: Verbalize Understanding, Return Demonstration, Reinforcement Needed Time Time In: 800 Time Out: 900 DATE: Aug 15, 2022 Total Billed Treatment Time: 60 Total Billed Treatment 1,GT25m,FA15m,EX20m SANDRA IVERSON REPORT MANAGER Aug 15, 2022 08:55
--- NOTE | 2022-08-15 11:52 | Occupational Ther Daily Note ---
OT Current Status-Daily Note Subjective Pt alert, sitting EOB. Pt agrees to therapy. No c/o pain at this time. Mental Status/Objective Patient Orientation: Person, Place, Time, Situation Attachments: Other-See Comments (TLSO) ADL-Treatment Setup for TLSO and upper body dressing. Therapy Code Descriptions/Definitions Functional [place] Measure: 0=Not Assessed/NA 4=Minimal Assistance 1=Total Assistance 5=Supervision or Setup 2=Maximal Assistance 6=Modified [place] 3=Moderate Assistance 7=Complete IndependenceSCALE: Activities may be completed with or without assistive devices. 5-Sueommriqn-ehzpgss completes the activity by him/herself with no assistance from a helper. 5-Set-up or Clean-up Assistance-helper sets up or cleans up; patient completes activity. [place] assists only prior to or following the activity. 4-Supervision or Touching Assistance-helper provides verbal cues and/or touching/steadying and/or contact guard assistance as patient completes activity. Assistance may be provided throughout the activity or intermittently. 3-Partial/Moderate Assistance-helper does LESS THAN HALF the effort. [place] lifts, holds or supports trunk or limbs, but provides less than half the effort. 2-Substantial/Maximal Assistance-helper does MORE THAN HALF the effort. [place] lifts or holds trunk or limbs and provides more than half the effort. 4-Rlbuayrdt-llqdyu does ALL the effort. Patient does none of the effort to com plete the activity. Or, the assistance of 2 or more helpers is required for the patient to complete the activity. If activity was not attempted, code reason: 7-Patient Refused. 9-Not Applicable-not attempted and the patient did not perform the activity before the current illness, exacerbation or injury. 10-Not Attempted due to Environmental Limitations-(lack of equipment, weather restraints, etc.). 88-Not Attempted due to Medical Conditions or Safety Concerns. Upper Body Dressing (QC): 5 Other Treatment Pt working on strengthening B UE's throughout session. Gross motor and fine motor exercises completed during OT session to work on strengthening for daily functional tasks. Pt tolerated all well and has progressed with strengthen and functional balance for daily functional tasks. 1# hand wt for wrist ext, 2# hand wt for wrist uln/rad dev, 3# hand wt for wrist flex. Dowel felisa with 5# wt for B UE strengthening. Resistive clothespins completed with each hand. After session, pt sitting in recliner with call light/phone in reach. All needs met in room. OT Short Term Goals Short Term Goals Time Frame: Aug 23, 2022 Shower/bathe self: 4 Upper body dressin Lower body dressin Putting on/taking off footwear: 4 OT Malt Roaster Goals Malt Roaster Goals Time Frame: Sep 06, 2022 Acute change in mental status: 0 Inattention: 0 Disorganized thinkin Altered level of consciousness: 0 Eating (QC): 6 Oral Hygiene (QC): 6 Toileting Hygiene (QC): 6 Shower/Bathe Self (QC): 6 Upper Body Dressing (QC): 6 Lower Body Dressing (QC): 6 On/Off Footwear (QC): 6 Additional Goals: 1-Demonstrate ADL Tasks, 2-Verbalize Understanding, 3- ImproveStrength/Héctor 1=Demonstrate adherence to instructed precautions during ADL tasks. 2=Patient will verbalize/demonstrate understanding of assistive devices/modifications for ADL. 3=Patient will improve strength/tolerance for activity to enable patient to perform ADL's. OT Education/Plan Problem List/Assessment Assessment: Decreased Activ Tolerance, Decreased UE Strength, Impaired Self- Care Skills Discharge Recommendations Plan/Recommendations: Continue POC Treatment Plan/Plan of Care Patient would benefit from OT for education, treatment and training to promote independence in ADL's, mobility, safety and/or upper extremity function for ADL's. Plan of Care: ADL Retraining, Functional Mobility, Group Exercise/Act as Ind, UE Funct Exercise/Act Treatment Duration: Sep 06, 2022 Frequency: At least 5 of 7 days/Wk (IRF) Estimated Hrs Per Day: 1.5 hours per day Agreement: Yes Rehab Potential: Fair Time Start Time: 10:00 Stop Time: 11:30 DATE: Aug 15, 2022 Total Time Billed (hr/min): 90 Billed Treatment Time 1 visit-ADL 1 (10 min) EX 5 (80 min) JSA GARCIA Aug 15, 2022 11:52
--- NOTE | 2022-08-15 13:42 | Physical Therapy Daily Note ---
PT Daily Note-Current Subjective Pt. states he is very tired and prefers bed mob and therex. "This is the most tired afternoon Celena had so far. You wore me out this morning" pt. c/o one brief back spasm during rolling and scooting up in bed, briefly and rated at 6/10. completely subsided within a minute or two Pain Numeric Pain Scale: 6 Location: Medial Location Body Site: Back Pain Description: Cramping (spasm) Section J - Health Conditions 1. Rarely or not at all 2. Occasionally 3. Frequently 4. Almost constantly 8. Unable to answer Pain Effect on Sleep: 2 Pain Interference with Therapy: 2 Pain Interference w/Day-to-Day: 2 Mental Status Patient Orientation: Normal For Age Transfers SCALE: Activities may be completed with or without assistive devices. 6-Nymrrwzmup-vyirbol completes the activity by him/herself with no assistance from a helper. 5-Set-up or Clean-up Assistance-helper sets up or cleans up; patient completes activity. [place] assists only prior to or following the activity. 4-Supervision or Touching Assistance-helper provides verbal cues and/or touching/steadying and/or contact guard assistance as patient completes activity. Assistance may be provided throughout the activity or intermittently. 3-Partial/Moderate Assistance-helper does LESS THAN HALF the effort. [place] lifts, holds or supports trunk or limbs, but provides less than half the effort. 2-Substantial/Maximal Assistance-helper does MORE THAN HALF the effort. [place] lifts or holds trunk or limbs and provides more than half the effort. 0-Jkziwzxzy-hfpugm does ALL the effort. Patient does none of the effort to complete the activity. Or, the assistance of 2 or more helpers is required for the patient to complete the activity. If activity was not attempted, code reason: 7-Patient Refused. 9-Not Applicable-not attempted and the patient did not perform the activity before the current illness, exacerbation or injury. 10-Not Attempted due to Environmental Limitations-(lack of equipment, weather restraints, etc.). 88-Not Attempted due to Medical Conditions or Safety Concerns. Roll Left & Right (QC): 6 scoots self up in bed using rails above him on head board, indep Weight Bearing Full Weight Bearing Full Weight Bearing back precautions Exercises Supine Ex: Bridging (slight, enough to clear bottom off bed), Ankle pumps (HC stretches), Quad Set, Rolling, Glut sets, Heel Slides, Short Arc Quads, Scooting, Straight leg raise (x4 assisted), Hip abd/add Treatments bed mob, LE ex in supine Assessment Current Status: Good Progress PT Assisted Goals Site Interpreter Goals PT Site Interpreter Goals Time Frame: Aug 23, 2022 Roll Left & Right (QC): 6 Sit to Lying (QC): 4 Lying-Sitting on Side/Bed(QC): 4 Sit to Stand (QC): 4 Chair/Trn-mc-Rgszt Xfer(QC): 4 Toilet Transfer (QC): 4 Car Transfer (QC): 4 Does the Patient Walk: Yes Walk 10 feet (QC): 4 Walk 50ft with 2 Turns (QC): 4 Walk 150 ft (QC): 4 Walking 10ft on Uneven Surface: 4 1 Step (curb) (QC): 4 4 Steps (QC): 4 12 Steps (QC): 88 Picking up an Object (QC): 4 Wheel 50 feet with 2 turns (QC: 9 Wheel 150 feet: 9 PT Plan Treatment/Plan Treatment Plan: Continue Plan of Care Treatment Plan: Bed Mobility, Education, Functional Activity Héctor, Functional Strength, Group Therapy, Gait, Safety, Therapeutic Exercise, Transfers Treatment Duration: Aug 23, 2022 Frequency: At least 5 of 7 days/Wk (IRF) Estimated Hrs Per Day: 1.5 hours per day Patient and/or Family Agrees t: Yes Safety Risks/Education Patient Education: Reviewed Precautions, Correct Positioning, Safety Issues Teaching Recipient: Patient Response to Teaching: Reinforcement Needed Time Time In: 1305 Time Out: 1335 DATE: Aug 15, 2022 Total Billed Treatment Time: 30 Total Billed Treatment 1,EX30m SANDRA IVERSON SECURITY MANAGER Aug 15, 2022 13:42
[2022-08-15 20:20] VITALS: BP 117/78
[2022-08-15] MEDS: CYCLOBENZAPRINE 10 MG (FLEXERIL) TAB PO SCH (20:47)
--- NOTE | 2022-08-16 05:40 | PM&R Progress Note ---
Subjective HPI/CC On Admission Date Seen by Provider: Aug 16, 2022 Time Seen by Provider: 11:00 Subjective/Events-last exam 08/16/2022: No new issues No pain changes Slept a bit better Flexeril given at night 08/15/2022: No major issues No pain reported No falls Improved sleep last night 08/14/2022: Much improved status Depression noted but he has very complicated mental illness he will certainly require specialty mental health care at [facility] [place] No other issues 08/13/2022: Much improved No pain until night time so I added a muscle relaxant to help him sleep too with a pain pill BM+ No falls 08/12/2022: Much improved Moving well Still pale appearing Venofer maintained and tolerated 08/11/2022: No major issues Pale Venofer maintained B12 maintained BM++ 08/10/2022: Improved overall Venofer and B12 given empirically although studies pending BP stable HR stable Eating well Pain controlled No BM yet so will resolve today Review of Systems General: Fatigue, Malaise Objective Exam Vital Signs Vital Signs Date Time Temp Pulse Resp B/P (MAP) Pulse Ox O2 Delivery O2 Flow Rate FiO2 08/16/22 19:41 36.0 91 16 118/74 (89) 98 Room Air Capillary Refill : General Appearance: No Apparent Distress, WD/WN, Chronically ill, Obese HEENT: PERRL/EOMI, Normal ENT Inspection, Pharynx Normal Neck: Full Range of Motion, Normal Inspection, Non Tender, Supple, Carotid Bruit Respiratory: Chest Non Tender, Lungs Clear, Normal Breath Sounds, No Accessory Muscle Use, No Respiratory Distress Cardiovascular: Regular Rate, Rhythm, No Edema, No Gallop, No JVD, No Murmur, Normal Peripheral Pulses Gastrointestinal: Normal Bowel Sounds, No Organomegaly, No Pulsatile Mass, Non Tender, Soft Back: Normal Inspection, CVA Tenderness (L), CVA Tenderness (R), Decreased Range of Motion, Vertebral Tenderness Extremity: Normal Capillary Refill, Normal Inspection, Normal Range of Motion, Non Tender, No Calf Tenderness, No Pedal Edema Neurologic/Psychiatric: Alert, Oriented x3, promotions assistant II-XII Norm as Tested, Abnormal Gait, Depressed Affect, Motor Weakness (generalized but lower extremities are very weak) Skin: Normal Color, Warm/Dry Lymphatic: No Adenopathy Results/Procedures Lab Patient resulted labs reviewed. FIM Transfers Therapy Code Descriptions/Definitions Functional [place] Measure: 0=Not Assessed/NA 4=Minimal Assistance 1=Total Assistance 5=Supervision or Setup 2=Maximal Assistance 6=Modified [place] 3=Moderate Assistance 7=Complete IndependenceSCALE: Activities may be completed with or without assistive devices. 1-Qqbevzefbp-mttgowe completes the activity by him/herself with no assistance from a helper. 5-Set-up or Clean-up Assistance-helper sets up or cleans up; patient completes activity. [place] assists only prior to or following the activity. 4-Supervision or Touching Assistance-helper provides verbal cues and/or touching/steadying and/or contact guard assistance as patient completes activity. Assistance may be provided throughout the activity or intermittently. 3-Partial/Moderate Assistance-helper does LESS THAN HALF the effort. [place] lifts, holds or supports trunk or limbs, but provides less than half the effort. 2-Substantial/Maximal Assistance-helper does MORE THAN HALF the effort. [place] lifts or holds trunk or limbs and provides more than half the effort. 1-Olgddtkzw-hurvhg does ALL the effort. Patient does none of the effort to complete the activity. Or, the assistance of 2 or more helpers is required for the patient to complete the activity. If activity was not attempted, code reason: 7-Patient Refused. 9-Not Applicable-not attempted and the patient did not perform the activity before the current illness, exacerbation or injury. 10-Not Attempted due to Environmental Limitations-(lack of equipment, weather restraints, etc.). 88-Not Attempted due to Medical Conditions or Safety Concerns. Roll Left to Right (QC): 6 Sit to Lying (QC): 3 Sit to Stand (QC): 5 Chair/Qtd-md-Fuaom Xfer(QC): 6 Car Transfer (QC): 4 Gait Training Does the Patient Walk?: Yes Distance: 20' Walk 10 feet (QC): 4 Walk 50 ft with 2 Turns(QC): 4 Walk 150 ft (QC): 4 Walking 10ft/uneven surface-QC: 4 Gait Persons Needed: 1 Gait Assistive Device: FWW Wheelchair Training Does the Pt Use a Wheelchair?: No Wheel 50 ft with 2 turns (QC): 9 Wheel 150 ft (QC): 9 Type of Wheelchair: N/A Stair Training #of Steps: 1 1 Step (curb) (QC): 4 4 Steps (QC): 88 12 Steps (QC): 88 Balance Picking up an Object (QC): 4 (CGA using a title specialist) ADL-Treatment Eating (QC): 6 Oral Hygiene (QC): 4 Shower/Bathe Self (QC): 4 Upper Body Dressing (QC): 5 Lower Body Dressing (QC): 4 On/Off Footwear (QC): 6 Toileting Hygiene (QC): 3 Toilet Transfer (QC): 4 Assessment/Plan Assessment and Plan Assess & Plan/Chief Complaint Assessment:: Debility following scoliosis correction surgery causing lumbar myelopathy per Dr Altamirano h/o long recovery following COVID-19 PNA 06/03/20 required snf admit after failing ARU Anemia s/p 1 unit of blood at [facility] Morbid obesity improved since last admit HTN HLP Developmental delay/autism s/p decubitus ulcers coccyx and left knee s/p debridement 08/16/20 Dr Santillan Tachycardia due to volume depletion Severe iron def Vit b12 def Plan: PT OT Pain control Home meds Monitor HR and BP 08/10/2022: Monitor closely Venofer B12 08/11/2022: Monitor closely Venofer 08/12/2022: Monitor closely Fall risk 08/13/2022: Add muscle relaxant 08/14/2022: DC accuchecks 08/15/2022: Monitor pain 08/16/2022: Monitor closely Pain control (1) Lumbar myelopathy HEMANTH DODD DO Aug 16, 2022 05:40
[2022-08-16] MEDS: SEMAGLUTIDE PO SCH ×2 (06:13→06:15)
[2022-08-16 07:36] VITALS: BP 97/64
[2022-08-16] MEDS: CATHETER FLUSH 10 ML SYR IVP SCH ×3 (07:38→21:17)
[2022-08-16] MEDS: CYANOCOBALAMIN 1,000 MCG (VITAMIN B-12) TABLET PO SCH (07:38)
[2022-08-16] MEDS: MULTIVIT W/MINERALS TAB (THERAGRAN M) PO SCH (07:38)
[2022-08-16] MEDS: KCL 10 MEQ TAB (MICRO K) PO SCH (07:38)
[2022-08-16] MEDS: PREGABALIN 75 MG (LYRICA) CAP PO SCH ×2 (08:55→21:09)
[2022-08-16] MEDS: DULoxetine 30 MG (CYMBALTA) CAP PO SCH (08:55)
[2022-08-16] MEDS: PANTOPRAZOLE 20 MG TABLET (PROTONIX) PO SCH (08:55)
[2022-08-16] MEDS: metFORMIN 500 MG (GLUCOPHAGE) TAB PO SCH ×2 (08:55→17:34)
[2022-08-16] MEDS: LORATADINE (CLARITIN) 10 MG TAB PO SCH (08:56)
[2022-08-16] MEDS: ENOXAPARIN 40 MG/0.4 ML (LOVENOX) SYR SC SCH (08:58)
[2022-08-16] MEDS: IRON SUCROSE 200 MG/10 ML (VENOFER) VIAL IV SCH (08:58)
[2022-08-16] MEDS: meTOprolol TARTRATE 50 MG (LOPRESSOR) TAB PO SCH ×2 (09:03→17:34)
--- NOTE | 2022-08-16 09:03 | Physical Therapy Daily Note ---
PT Daily Note-Current Subjective Pt. in bed asleep but agrees to Rx when awakened, already had brkfst. 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 c/o pain in low back at 3/10 with activity Pain Numeric Pain Scale: 3 Location: Medial Location Body Site: Back Pain Description: Ache Section J - Health Conditions 1. Rarely or not at all 2. Occasionally 3. Frequently 4. Almost constantly 8. Unable to answer Pain Effect on Sleep: 2 Pain Interference with Therapy: 2 Pain Interference w/Day-to-Day: 2 Appearance flat affect consistently Mental Status Patient Orientation: Normal For Age Attachments: Other-See Comments (bilat AFOs and TLSO) Transfers SCALE: Activities may be completed with or without assistive devices. 8-Gllnlwssrj-cpluykx completes the activity by him/herself with no assistance from a helper. 5-Set-up or Clean-up Assistance-helper sets up or cleans up; patient completes activity. [place] assists only prior to or following the activity. 4-Supervision or Touching Assistance-helper provides verbal cues and/or touching/steadying and/or contact guard assistance as patient completes activity. Assistance may be provided throughout the activity or intermittently. 3-Partial/Moderate Assistance-helper does LESS THAN HALF the effort. [place] lifts, holds or supports trunk or limbs, but provides less than half the effort. 2-Substantial/Maximal Assistance-helper does MORE THAN HALF the effort. [place] lifts or holds trunk or limbs and provides more than half the effort. 9-Myklzkvds-shxuie does ALL the effort. Patient does none of the effort to complete the activity. Or, the assistance of 2 or more helpers is required for the patient to complete the activity. If activity was not attempted, code reason: 7-Patient Refused. 9-Not Applicable-not attempted and the patient did not perform the activity before the current illness, exacerbation or injury. 10-Not Attempted due to Environmental Limitations-(lack of equipment, weather restraints, etc.). 88-Not Attempted due to Medical Conditions or Safety Concerns. Roll Left & Right (QC): 6 Lying to Sitting/Side of Bed(Q: 6 Sit to Stand (QC): 4 Chair/Azg-jg-Bpdsb Xfer(QC): 4 Car Transfer (QC): 6 simulated truck TRF with good success. simulator has less leg room and seat not as deep but pt. managed, pt. needs safety and hand placement reminders as well as positioning for safe sit to stand to sit Weight Bearing Full Weight Bearing Full Weight Bearing back precautions Gait Training Does the Patient Walk?: Yes Walk 150 ft (QC): 4 Gait Persons Needed: 1 Gait Assistive Device: FWW equal step length, no LOB, slight flexed posture conts. improved chair and bed approaches regarding safety Exercises Seated Therapy Exercises: Sit to stand, Long arc quads, Hip flexion, Hip abd/add Seated Reps: 12 Standing: Hip Abduction, Marching, Mini squats, Side steps Standing Reps: 15 NuStep Minutes: 10 NuStep Workload: 3 Treatments bed mob, TRFs, LE seated and standing ex, gait, safety, TLSO donning Assessment Current Status: Good Progress PT Prison Goals Molder Setter Goals PT Prison Goals Time Frame: Aug 23, 2022 Roll Left & Right (QC): 6 Sit to Lying (QC): 4 Lying-Sitting on Side/Bed(QC): 4 Sit to Stand (QC): 4 Chair/Lxr-uy-Hdxmf Xfer(QC): 4 Toilet Transfer (QC): 4 Car Transfer (QC): 4 Does the Patient Walk: Yes Walk 10 feet (QC): 4 Walk 50ft with 2 Turns (QC): 4 Walk 150 ft (QC): 4 Walking 10ft on Uneven Surface: 4 1 Step (curb) (QC): 4 4 Steps (QC): 4 12 Steps (QC): 88 Picking up an Object (QC): 4 Wheel 50 feet with 2 turns (QC: 9 Wheel 150 feet: 9 PT Plan Treatment/Plan Treatment Plan: Continue Plan of Care Treatment Plan: Bed Mobility, Education, Functional Activity [place], Functional Strength, Group Therapy, Gait, Safety, Therapeutic Exercise, Transfers Treatment Duration: Aug 23, 2022 Frequency: At least 5 of 7 days/Wk (IRF) Estimated Hrs Per Day: 1.5 hours per day Patient and/or Family Agrees t: Yes Safety Risks/Education Patient Education: Gait Training, Transfer Techniques, Reviewed Precautions, Correct Positioning, Reviewed Don/Doff Brace, Disease Process, Safety Issues Teaching Recipient: Patient Teaching Methods: Demonstration, Discussion Response to Teaching: Verbalize Understanding, Return Demonstration, Reinforcement Needed Time Time In: 800 Time Out: 900 DATE: Aug 16, 2022 Total Billed Treatment Time: 60 Total Billed Treatment 1,GT25m,EX20m,FA15m SANDRA IVERSON CERTIFIED REHABILITATION COUNSELOR Aug 16, 2022 09:03
[2022-08-16] MEDS: polyethylene glycoL POWDER 17 GM (MIRALAX) PACK PO SCH ×2 (09:04→21:04)
[2022-08-16] MEDS: DOCUSATE SODIUM 100 MG (COLACE) CAP PO SCH ×2 (09:04→21:17)
[2022-08-16] MEDS: SENNA W/DOCUSATE (SENOKOT S) TABLET PO SCH ×2 (09:04→21:17)
[2022-08-16] MEDS: REXULTI 0.5 MG PO SCH (09:05)
[2022-08-16 09:07] VITALS: BP 114/61
--- NOTE | 2022-08-16 11:56 | Occupational Ther Daily Note ---
OT Current Status-Daily Note Subjective Pt is alert, lying in bed. Pt agrees to therapy. No c/o pain at this time. Mental Status/Objective Patient Orientation: Person, Place, Time, Situation Attachments: Other-See Comments (TLSO) ADL-Treatment Pt declines shower until Friday. Pt already is dressed, only shoes and AFO's to don. Set up for TLSO then pt able to don/doff by self. Pt able to don shoes using AE by self after set up. Due to increased fatigue, pt requested assistance to don AFOs, typically pt is able to complete by self. Therapy Code Descriptions/Definitions Functional [place] Measure: 0=Not Assessed/NA 4=Minimal Assistance 1=Total Assistance 5=Supervision or Setup 2=Maximal Assistance 6=Modified [place] 3=Moderate Assistance 7=Complete IndependenceSCALE: Activities may be completed with or without assistive devices. 2-Tkbakjvwxq-ccvngar completes the activity by him/herself with no assistance from a helper. 5-Set-up or Clean-up Assistance-helper sets up or cleans up; patient completes activity. [place] assists only prior to or following the activity. 4-Supervision or Touching Assistance-helper provides verbal cues and/or touching/steadying and/or contact guard assistance as patient completes activity. Assistance may be provided throughout the activity or intermittently. 3-Partial/Moderate Assistance-helper does LESS THAN HALF the effort. [place] lifts, holds or supports trunk or limbs, but provides less than half the effort. 2-Substantial/Maximal Assistance-helper does MORE THAN HALF the effort. [place] lifts or holds trunk or limbs and provides more than half the effort. 4-Wzkolyxhq-kbszxg does ALL the effort. Patient does none of the effort to complete the activity. Or, the assistance of 2 or more helpers is required for the patient to complete the activity. If activity was not attempted, code reason: 7-Patient Refused. 9-Not Applicable-not attempted and the patient did not perform the activity before the current illness, exacerbation or injury. 10-Not Attempted due to Environmental Limitations-(lack of equipment, weather restraints, etc.). 88-Not Attempted due to Medical Conditions or Safety Concerns. On/Off Footwear: 3 Other Treatment Pt ambulates to therapy gym using FWW. Pt completes a variety of gross/fine motor exercises to increase strength throughout B UE's to complete daily functional tasks independently. Pt is demonstrating progress with each exercise in increasing AROM, wt and length of time tolerated. After session, pt sitting on toilet with call light in reach and instructions to use when finished with toileting. All needs met. OT Short Term Goals Short Term Goals Time Frame: Aug 23, 2022 Shower/bathe self: 4 Upper body dressin Lower body dressin Putting on/taking off footwear: 4 OT Steam Pipe Fitter Goals [facility] Goals Time Frame: Sep 06, 2022 Acute change in mental status: 0 Inattention: 0 Disorganized thinkin Altered level of consciousness: 0 Eating (QC): 6 Oral Hygiene (QC): 6 Toileting Hygiene (QC): 6 Shower/Bathe Self (QC): 6 Upper Body Dressing (QC): 6 Lower Body Dressing (QC): 6 On/Off Footwear (QC): 6 Additional Goals: 1-Demonstrate ADL Tasks, 2-Verbalize Understanding, 3- ImproveStrength/Héctor 1=Demonstrate adherence to instructed precautions during ADL tasks. 2=Patient will verbalize/demonstrate understanding of assistive devices/modifications for ADL. 3=Patient will improve strength/tolerance for activity to enable patient to perform ADL's. OT Education/Plan Problem List/Assessment Assessment: Decreased Activ Tolerance, Decreased UE Strength, Impaired Self- Care Skills Discharge Recommendations Plan/Recommendations: Continue POC Treatment Plan/Plan of Care Patient would benefit from OT for education, treatment and training to promote independence in ADL's, mobility, safety and/or upper extremity function for ADL's. Plan of Care: ADL Retraining, Functional Mobility, Group Exercise/Act as Ind, UE Funct Exercise/Act Treatment Duration: Sep 06, 2022 Frequency: At least 5 of 7 days/Wk (IRF) Estimated Hrs Per Day: 1.5 hours per day Agreement: Yes Rehab Potential: Fair Time Start Time: 10:30 Stop Time: 12:00 DATE: Aug 16, 2022 Total Time Billed (hr/min): 90 Billed Treatment Time 1 visit-ADL 2 (30 min) FA 1 (15 min)EX 3 (45 min) JAS AGRCIA Aug 16, 2022 11:56
--- NOTE | 2022-08-16 13:25 | Physical Therapy Daily Note ---
PT Daily Note-Current Subjective Pt. agrees to Rx, pain in lumbar area at 3/10. Pain Numeric Pain Scale: 3 Location: Medial, Lower Location Body Site: Back Pain Description: Ache Section J - Health Conditions 1. Rarely or not at all 2. Occasionally 3. Frequently 4. Almost constantly 8. Unable to answer Pain Effect on Sleep: 2 Pain Interference with Therapy: 2 Pain Interference w/Day-to-Day: 2 Mental Status Patient Orientation: Normal For Age Attachments: Other-See Comments (ALEJANDROOs bilantionette, TLSO) Transfers SCALE: Activities may be completed with or without assistive devices. 7-Sxkwalffoj-zqpjggg completes the activity by him/herself with no assistance from a helper. 5-Set-up or Clean-up Assistance-helper sets up or cleans up; patient completes activity. [place] assists only prior to or following the activity. 4-Supervision or Touching Assistance-helper provides verbal cues and/or touching/steadying and/or contact guard assistance as patient completes act ivity. Assistance may be provided throughout the activity or intermittently. 3-Partial/Moderate Assistance-helper does LESS THAN HALF the effort. [place] lifts, holds or supports trunk or limbs, but provides less than half the effort. 2-Substantial/Maximal Assistance-helper does MORE THAN HALF the effort. [place] lifts or holds trunk or limbs and provides more than half the effort. 7-Zjcigmdqr-swpezd does ALL the effort. Patient does none of the effort to complete the activity. Or, the assistance of 2 or more helpers is required for the patient to complete the activity. If activity was not attempted, code reason: 7-Patient Refused. 9-Not Applicable-not attempted and the patient did not perform the activity before the current illness, exacerbation or injury. 10-Not Attempted due to Environmental Limitations-(lack of equipment, weather restraints, etc.). 88-Not Attempted due to Medical Conditions or Safety Concerns. Roll Left & Right (QC): 6 Sit to Lying (QC): 6 Weight Bearing Full Weight Bearing Full Weight Bearing back precautions Gait Training Does the Patient Walk?: Yes Walk 150 ft (QC): 6 Gait Assistive Device: FWW [id number] SBA FWW Stair Training Stair Training: Handrails/: 2 handrails #of Steps: 4 4 Steps (QC): 4 Stairs: Pattern: Reciprocal simulating steps pt uses at a relatives house, pt has ramps at his own home Exercises Seated Therapy Exercises: Ankle pumps, Sit to stand, Long arc quads, Hip flexion, Hip abd/add Seated Reps: 10 Treatments gait, TRFs, stairs, therex Assessment Current Status: Good Progress PT Intermediate Goals Medicare Coordinator Goals PT Intermediate Goals Time Frame: Aug 23, 2022 Roll Left & Right (QC): 6 Sit to Lying (QC): 4 Lying-Sitting on Side/Bed(QC): 4 Sit to Stand (QC): 4 Chair/Mcq-pi-Pjdos Xfer(QC): 4 Toilet Transfer (QC): 4 Car Transfer (QC): 4 Does the Patient Walk: Yes Walk 10 feet (QC): 4 Walk 50ft with 2 Turns (QC): 4 Walk 150 ft (QC): 4 Walking 10ft on Uneven Surface: 4 1 Step (curb) (QC): 4 4 Steps (QC): 4 12 Steps (QC): 88 Picking up an Object (QC): 4 Wheel 50 feet with 2 turns (QC: 9 Wheel 150 feet: 9 PT Plan Treatment/Plan Treatment Plan: Continue Plan of Care Treatment Plan: Bed Mobility, Education, Functional Activity Héctor, Functional Strength, Group Therapy, Gait, Safety, Therapeutic Exercise, Transfers Treatment Duration: Aug 23, 2022 Frequency: At least 5 of 7 days/Wk (IRF) Estimated Hrs Per Day: 1.5 hours per day Patient and/or Family Agrees t: Yes Safety Risks/Education Patient Education: Gait Training, Transfer Techniques, Steps, Correct Positioning, Disease Process, Safety Issues Teaching Recipient: Patient Teaching Methods: Demonstration, Discussion Response to Teaching: Verbalize Understanding, Return Demonstration, Reinforcement Needed Time Time In: 1240 Time Out: 1310 DATE: Aug 16, 2022 Total Billed Treatment Time: 30 Total Billed Treatment 1,FA15,GT15 SANDRA IVERSON HOROLOGIST APPRENTICE Aug 16, 2022 13:25
[2022-08-16 19:41] VITALS: BP 118/74
[2022-08-16] MEDS: CYCLOBENZAPRINE 10 MG (FLEXERIL) TAB PO SCH (21:08)
[2022-08-17] MEDS: ALPRAZolam 0.25 MG (XANAX) TAB PO PRN (00:24)
[2022-08-17] MEDS: CYANOCOBALAMIN 1,000 MCG (VITAMIN B-12) TABLET PO SCH (06:27)
[2022-08-17] MEDS: MULTIVIT W/MINERALS TAB (THERAGRAN M) PO SCH (06:27)
[2022-08-17] MEDS: CATHETER FLUSH 10 ML SYR IVP SCH ×3 (06:27→19:16)
[2022-08-17] MEDS: KCL 10 MEQ TAB (MICRO K) PO SCH (06:27)
--- NOTE | 2022-08-17 06:46 | PM&R Progress Note ---
Subjective HPI/CC On Admission Date Seen by Provider: Aug 17, 2022 Time Seen by Provider: 11:00 Subjective/Events-last exam 08/17/2022: No major concerns Pain controlled BM+ Flexeril is helping 08/16/2022: No new issues No pain changes Slept a bit better Flexeril given at night 08/15/2022: No major issues No pain reported No falls Improved sleep last night 08/14/2022: Much improved status Depression noted but he has very complicated mental illness he will certainly require specialty mental health care at [facility] his PCP at [place] No other issues 08/13/2022: Much improved No pain until night time so I added a muscle relaxant to help him sleep too with a pain pill BM+ No falls 08/12/2022: Much improved Moving well Still pale appearing Venofer maintained and tolerated 08/11/2022: No major issues Pale Venofer maintained B12 maintained BM++ 08/10/2022: Improved overall Venofer and B12 given empirically although studies pending BP stable HR stable Eating well Pain controlled No BM yet so will resolve today Review of Systems General: Fatigue, Malaise Objective Exam Vital Signs Vital Signs Date Time Temp Pulse Resp B/P (MAP) Pulse Ox O2 Delivery O2 Flow Rate FiO2 08/17/22 09:00 Room Air 08/17/22 07:08 36.8 93 20 110/80 (90) 99 Capillary Refill : General Appearance: No Apparent Distress, WD/WN, Chronically ill, Obese HEENT: PERRL/EOMI, Normal ENT Inspection, Pharynx Normal Neck: Full Range of Motion, Normal Inspection, Non Tender, Supple, Carotid Bruit Respiratory: Chest Non Tender, Lungs Clear, Normal Breath Sounds, No Accessory Muscle Use, No Respiratory Distress Cardiovascular: Regular Rate, Rhythm, No Edema, No Gallop, No JVD, No Murmur, Normal Peripheral Pulses Gastrointestinal: Normal Bowel Sounds, No Organomegaly, No Pulsatile Mass, Non Tender, Soft Back: Normal Inspection, CVA Tenderness (L), CVA Tenderness (R), Decreased Range of Motion, Vertebral Tenderness Extremity: Normal Capillary Refill, Normal Inspection, Normal Range of Motion, Non Tender, No Calf Tenderness, No Pedal Edema Neurologic/Psychiatric: Alert, Oriented x3, medication aid II-XII Norm as Tested, Abnormal Gait, Depressed Affect, Motor Weakness (generalized but lower extremities are very weak) Skin: Normal Color, Warm/Dry Lymphatic: No Adenopathy Results/Procedures Lab Patient resulted labs reviewed. FIM Transfers Therapy Code Descriptions/Definitions Functional [place] Measure: 0=Not Assessed/NA 4=Minimal Assistance 1=Total Assistance 5=Supervision or Setup 2=Maximal Assistance 6=Modified [place] 3=Moderate Assistance 7=Complete IndependenceSCALE: Activities may be completed with or without assistive devices. 0-Jcprjroijl-lekzcdq completes the activity by him/herself with no assistance from a helper. 5-Set-up or Clean-up Assistance-helper sets up or cleans up; patient completes activity. [place] assists only prior to or following the activity. 4-Supervision or Touching Assistance-helper provides verbal cues and/or touching/steadying and/or contact guard assistance as patient completes activity. Assistance may be provided throughout the activity or intermittently. 3-Partial/Moderate Assistance-helper does LESS THAN HALF the effort. [place] lifts, holds or supports trunk or limbs, but provides less than half the effort. 2-Substantial/Maximal Assistance-helper does MORE THAN HALF the effort. [place] lifts or holds trunk or limbs and provides more than half the effort. 4-Yvowdfpcv-zuvbcv does ALL the effort. Patient does none of the effort to complete the activity. Or, the assistance of 2 or more helpers is required for the patient to complete the activity. If activity was not attempted, code reason: 7-Patient Refused. 9-Not Applicable-not attempted and the patient did not perform the activity before the current illness, exacerbation or injury. 10-Not Attempted due to Environmental Limitations-(lack of equipment, weather restraints, etc.). 88-Not Attempted due to Medical Conditions or Safety Concerns. Roll Left to Right (QC): 6 Sit to Lying (QC): 6 Sit to Stand (QC): 4 Chair/Zlg-qv-Ignlq Xfer(QC): 4 Car Transfer (QC): 6 Gait Training Does the Patient Walk?: Yes Distance: 20' Walk 10 feet (QC): 4 Walk 50 ft with 2 Turns(QC): 4 Walk 150 ft (QC): 6 Walking 10ft/uneven surface-QC: 4 Gait Persons Needed: 1 Gait Assistive Device: FWW Wheelchair Training Does the Pt Use a Wheelchair?: No Wheel 50 ft with 2 turns (QC): 9 Wheel 150 ft (QC): 9 Type of Wheelchair: N/A Stair Training Stair Training: Handrails/: 2 handrails #of Steps: 4 1 Step (curb) (QC): 4 4 Steps (QC): 4 12 Steps (QC): 88 Stairs: Pattern: Reciprocal Balance Picking up an Object (QC): 4 (CGA using a superintendent seed mill) ADL-Treatment Eating (QC): 6 Oral Hygiene (QC): 4 Shower/Bathe Self (QC): 4 Upper Body Dressing (QC): 5 Lower Body Dressing (QC): 4 On/Off Footwear (QC): 3 Toileting Hygiene (QC): 3 Toilet Transfer (QC): 4 Assessment/Plan Assessment and Plan Assess & Plan/Chief Complaint Assessment:: Debility following scoliosis correction surgery causing lumbar myelopathy per Dr Altamirano h/o long recovery following COVID-19 PNA 06/03/20 required residential admit after failing ARU Anemia s/p 1 unit of blood at [facility] Morbid obesity improved since last admit HTN HLP Developmental delay/autism s/p decubitus ulcers coccyx and left knee s/p debridement 08/16/20 Dr Santillan Tachycardia due to volume depletion Severe iron def Vit b12 def Plan: PT OT Pain control Home meds Monitor HR and BP 08/10/2022: Monitor closely Venofer B12 08/11/2022: Monitor closely Venofer 08/12/2022: Monitor closely Fall risk 08/13/2022: Add muscle relaxant 08/14/2022: DC accuchecks 08/15/2022: Monitor pain 08/16/2022: Monitor closely Pain control 08/17/2022: Monitor closely DC Friday (1) Lumbar myelopathy HEMANTH DODD DO Aug 17, 2022 06:46
[2022-08-17 07:08] VITALS: BP 110/80
[2022-08-17] MEDS: PANTOPRAZOLE 20 MG TABLET (PROTONIX) PO SCH (08:30)
[2022-08-17] MEDS: LORATADINE (CLARITIN) 10 MG TAB PO SCH (08:30)
[2022-08-17] MEDS: metFORMIN 500 MG (GLUCOPHAGE) TAB PO SCH ×2 (08:30→17:39)
[2022-08-17] MEDS: PREGABALIN 75 MG (LYRICA) CAP PO SCH ×2 (08:30→19:15)
[2022-08-17] MEDS: ENOXAPARIN 40 MG/0.4 ML (LOVENOX) SYR SC SCH (08:30)
[2022-08-17] MEDS: meTOprolol TARTRATE 50 MG (LOPRESSOR) TAB PO SCH ×2 (08:30→17:39)
[2022-08-17] MEDS: DULoxetine 30 MG (CYMBALTA) CAP PO SCH (08:30)
[2022-08-17] MEDS: DOCUSATE SODIUM 100 MG (COLACE) CAP PO SCH ×2 (08:31→19:17)
[2022-08-17] MEDS: REXULTI 0.5 MG PO SCH (08:31)
[2022-08-17] MEDS: SENNA W/DOCUSATE (SENOKOT S) TABLET PO SCH ×2 (08:32→19:17)
[2022-08-17] MEDS: polyethylene glycoL POWDER 17 GM (MIRALAX) PACK PO SCH ×2 (08:32→19:17)
[2022-08-17] MEDS ORDERED: CYAN-41 PO (10:31)
[2022-08-17] MEDS ORDERED: CYCL10TA25 PO (10:31)
[2022-08-17] MEDS ORDERED: ACHYD1T PO (10:31)
--- NOTE | 2022-08-17 10:33 | D/C HH Face to Face Order ---
D/C Face to Face Orders Reconcile Patient Problems Problems Reviewed?: Yes Instructions for Patient Via [facility] [employer], Patient Instructions/FollowUp: PCP 1 week Physician to follow Patient: [facility] Discharge Diet for Home: ADA Diet Patient Problems: Spine surgery Patient Data-Allergies,Ht & Wt Patient Allergies: Coded Allergies: No Known Drug Allergies (Unverified , 06/08/20) Height (Feet): 6 Height (Inches): 0.00 Weight (Pounds): 360 Weight (Ounces): 0.0 Home Health Need/Face to Face Date of Face to Face: Aug 17, 2022 Clinical Findings: Generalized weakness and fatigue, Instability, Muscle weakness, Pain with ambulation I have seen Pt gzhz-oe-vriw: Yes Discharged To: Home Diagnosis/Conditions: Debility Patient is Homebound due to: Muscle weakness, Pain w/ambulation Homebound Status Due to the above stated illness, injury or surgical procedure (medical condition or diagnosis) and associated clinical findings, the patient is homebound because of his/her inability to leave home except with aid of a supportive device and/or person AND leaving the home requires a considerable and taxing effort or is medically contraindicated. Pt req the following assistanc: Walker Home Health Nursing Orders Home Health Services Order: Nursing Services, Tool Mechanic-Evaluate & Treat, Physical Therapy-Evaluate & Treat Certify Stmt I certify that this patient is under my care and that I, a nurse practitioner or a physician; a bilingual executive assistant working with me, had a face to face encounter that - meets the physician face to face encounter requirements with this patient as dated. HEMANTH DODD DO Aug 17, 2022 10:33
--- NOTE | 2022-08-17 11:24 | Physical Therapy Daily Note ---
PT Daily Note-Current Subjective Pt. 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 agrees to supine therex and HEP review. Pt. states he feels so much stronger, more ease of movement and is happy about his progress Pain Location: No Pain Reported Section J - Health Conditions 1. Rarely or not at all 2. Occasionally 3. Frequently 4. Almost constantly 8. Unable to answer Pain Effect on Sleep: 2 Pain Interference with Therapy: 2 Pain Interference w/Day-to-Day: 2 Mental Status Patient Orientation: Normal For Age Transfers SCALE: Activities may be completed with or without assistive devices. 4-Zmszzkdscg-xdhenbz completes the activity by him/herself with no assistance from a helper. 5-Set-up or Clean-up Assistance-helper sets up or cleans up; patient completes activity. [place] assists only prior to or following the activity. 4-Supervision or Touching Assistance-helper provides verbal cues and/or touching/steadying and/or contact guard assistance as patient completes activ ity. Assistance may be provided throughout the activity or intermittently. 3-Partial/Moderate Assistance-helper does LESS THAN HALF the effort. [place] lifts, holds or supports trunk or limbs, but provides less than half the effort. 2-Substantial/Maximal Assistance-helper does MORE THAN HALF the effort. [place] lifts or holds trunk or limbs and provides more than half the effort. 1-Rawuysayc-ckohjm does ALL the effort. Patient does none of the effort to complete the activity. Or, the assistance of 2 or more helpers is required for the patient to complete the activity. If activity was not attempted, code reason: 7-Patient Refused. 9-Not Applicable-not attempted and the patient did not perform the activity before the current illness, exacerbation or injury. 10-Not Attempted due to Environmental Limitations-(lack of equipment, weather restraints, etc.). 88-Not Attempted due to Medical Conditions or Safety Concerns. scoots up in bed indep, rolls left and right indep good technique for log roll , demonstrated indep sup to side to sit and back all with good safe technique and no pain c/o Weight Bearing Full Weight Bearing Full Weight Bearing back precautions Exercises HEP demo and review :QS,APs with HEEL SHAVER stretching HCs 3 x 20 sec each , HS, GS, LAQ x 12 ea Treatments TRFs, HEP review Assessment Current Status: Good Progress PT Art Psychotherapist Goals Art Psychotherapist Goals PT Art Psychotherapist Goals Time Frame: Aug 23, 2022 Roll Left & Right (QC): 6 Sit to Lying (QC): 4 Lying-Sitting on Side/Bed(QC): 4 Sit to Stand (QC): 4 Chair/Fov-lf-Qsxbi Xfer(QC): 4 Toilet Transfer (QC): 4 Car Transfer (QC): 4 Does the Patient Walk: Yes Walk 10 feet (QC): 4 Walk 50ft with 2 Turns (QC): 4 Walk 150 ft (QC): 4 Walking 10ft on Uneven Surface: 4 1 Step (curb) (QC): 4 4 Steps (QC): 4 12 Steps (QC): 88 Picking up an Object (QC): 4 Wheel 50 feet with 2 turns (QC: 9 Wheel 150 feet: 9 PT Plan Treatment/Plan Treatment Plan: Continue Plan of Care Treatment Plan: Bed Mobility, Education, Functional Activity Héctor, Functional Strength, Group Therapy, Gait, Safety, Therapeutic Exercise, Transfers Treatment Duration: Aug 23, 2022 Frequency: At least 5 of 7 days/Wk (IRF) Estimated Hrs Per Day: 1.5 hours per day Patient and/or Family Agrees t: Yes Safety Risks/Education Patient Education: Transfer Techniques, Correct Positioning, Disease Process, Safety Issues Teaching Recipient: Patient Teaching Methods: Demonstration, Discussion Response to Teaching: Verbalize Understanding, Return Demonstration, Reinforcement Needed Time Time In: 935 Time Out: 950 DATE: Aug 17, 2022 Total Billed Treatment Time: 15 Total Billed Treatment 1,EX15m SANDRA IVERSON HEEL SHAVER Aug 17, 2022 11:24
[2022-08-17 19:08] VITALS: BP 128/69
[2022-08-17] MEDS: CYCLOBENZAPRINE 10 MG (FLEXERIL) TAB PO SCH (19:15)
[2022-08-18] MEDS: ALPRAZolam 0.25 MG (XANAX) TAB PO PRN ×2 (04:58→22:42)
[2022-08-18] MEDS: CATHETER FLUSH 10 ML SYR IVP SCH ×3 (04:59→20:36)
[2022-08-18] MEDS: SEMAGLUTIDE PO SCH (06:16)
[2022-08-18] MEDS: KCL 10 MEQ TAB (MICRO K) PO SCH (06:17)
[2022-08-18] MEDS: CYANOCOBALAMIN 1,000 MCG (VITAMIN B-12) TABLET PO SCH (06:17)
[2022-08-18] MEDS: MULTIVIT W/MINERALS TAB (THERAGRAN M) PO SCH (06:17)
[2022-08-18 06:31] LABS: BASOPHILS # (AUTO) 0.1 10^3/uL (0.0-0.1); BASOPHILS % (AUTO) 1 % (0-10); EOSINOPHILS # (AUTO) 0.3 10^3/uL (0.0-0.3); EOSINOPHILS % (AUTO) 3 % (0-10); HEMATOCRIT 31 % (40-54); HEMOGLOBIN 9.9 g/dL (13.3-17.7); LYMPHOCYTES # (AUTO) 2.4 10^3/uL (1.0-4.0); LYMPHOCYTES % (AUTO) 22 % (12-44); MEAN CORPUSCULAR HEMOGLOBIN 28 pg (25-34); MEAN CORPUSCULAR HGB CONC 32 g/dL (32-36); MEAN CORPUSCULAR VOLUME 87 fL (80-99); MEAN PLATELET VOLUME 8.4 fL (9.0-12.2); MONOCYTES % (AUTO) 9 % (0-12); NEUTROPHILS # (AUTO) 6.9 10^3/uL (1.8-7.8); NEUTROPHILS % (AUTO) 64 % (42-75); PLATELET COUNT 533 10^3/uL (130-400); WHITE BLOOD COUNT 10.7 10^3/uL (4.3-11.0)
[2022-08-18 06:36] LABS: ALBUMIN 3.3 GM/DL (3.2-4.5)
[2022-08-18 06:38] LABS: CALCIUM 9.1 MG/DL (8.5-10.1)
[2022-08-18 06:39] LABS: TOTAL PROTEIN 6.5 GM/DL (6.4-8.2)
[2022-08-18 06:41] LABS: BILIRUBIN,TOTAL 0.3 MG/DL (0.1-1.0)
[2022-08-18 06:43] LABS: CREATININE SERUM 0.76 MG/DL (0.60-1.30)
[2022-08-18 07:05] VITALS: BP 108/70
[2022-08-18] MEDS: DULoxetine 30 MG (CYMBALTA) CAP PO SCH (08:22)
[2022-08-18] MEDS: IRON SUCROSE 200 MG/10 ML (VENOFER) VIAL IV SCH (08:22)
[2022-08-18] MEDS: meTOprolol TARTRATE 50 MG (LOPRESSOR) TAB PO SCH ×2 (08:22→16:42)
[2022-08-18] MEDS: ENOXAPARIN 40 MG/0.4 ML (LOVENOX) SYR SC SCH (08:22)
[2022-08-18] MEDS: metFORMIN 500 MG (GLUCOPHAGE) TAB PO SCH ×2 (08:22→16:42)
[2022-08-18] MEDS: DOCUSATE SODIUM 100 MG (COLACE) CAP PO SCH ×2 (08:22→20:35)
[2022-08-18] MEDS: LORATADINE (CLARITIN) 10 MG TAB PO SCH (08:22)
[2022-08-18] MEDS: PANTOPRAZOLE 20 MG TABLET (PROTONIX) PO SCH (08:22)
[2022-08-18] MEDS: PREGABALIN 75 MG (LYRICA) CAP PO SCH ×2 (08:22→20:35)
[2022-08-18] MEDS: REXULTI 0.5 MG PO SCH (08:25)
[2022-08-18] MEDS: SENNA W/DOCUSATE (SENOKOT S) TABLET PO SCH ×2 (08:28→19:48)
[2022-08-18] MEDS: polyethylene glycoL POWDER 17 GM (MIRALAX) PACK PO SCH ×2 (08:28→19:48)
--- NOTE | 2022-08-18 15:25 | PM&R Progress Note ---
Subjective HPI/CC On Admission Date Seen by Provider: Aug 18, 2022 Time Seen by Provider: 15:30 Subjective/Events-last exam 08/18/2022: Improved status Wants miriam removed tomorrow Monitoring closely 08/17/2022: No major concerns Pain controlled BM+ Flexeril is helping 08/16/2022: No new issues No pain changes Slept a bit better Flexeril given at night 08/15/2022: No major issues No pain reported No falls Improved sleep last night 08/14/2022: Much improved status Depression noted but he has very complicated mental illness he will certainly require specialty mental health care at [facility] his PCP at [place] No other issues 08/13/2022: Much improved No pain until night time so I added a muscle relaxant to help him sleep too with a pain pill BM+ No falls 08/12/2022: Much improved Moving well Still pale appearing Venofer maintained and tolerated 08/11/2022: No major issues Pale Venofer maintained B12 maintained BM++ 08/10/2022: Improved overall Venofer and B12 given empirically although studies pending BP stable HR stable Eating well Pain controlled No BM yet so will resolve today Review of Systems General: Fatigue, Malaise Musculoskeletal: back pain Neurological: Weakness, Incoordination Objective Exam Vital Signs Vital Signs Date Time Temp Pulse Resp B/P (MAP) Pulse Ox O2 Delivery O2 Flow Rate FiO2 08/18/22 19:05 36.0 90 18 118/65 (82) 96 Room Air Capillary Refill : General Appearance: No Apparent Distress, WD/WN, Chronically ill, Obese HEENT: PERRL/EOMI, Normal ENT Inspection, Pharynx Normal Neck: Full Range of Motion, Normal Inspection, Non Tender, Supple, Carotid Bruit Respiratory: Chest Non Tender, Lungs Clear, Normal Breath Sounds, No Accessory Muscle Use, No Respiratory Distress Cardiovascular: Regular Rate, Rhythm, No Edema, No Gallop, No JVD, No Murmur, Normal Peripheral Pulses Gastrointestinal: Normal Bowel Sounds, No Organomegaly, No Pulsatile Mass, Non Tender, Soft Back: Normal Inspection, CVA Tenderness (L), CVA Tenderness (R), Decreased Range of Motion, Vertebral Tenderness Extremity: Normal Capillary Refill, Normal Inspection, Normal Range of Motion, Non Tender, No Calf Tenderness, No Pedal Edema Neurologic/Psychiatric: Alert, Oriented x3, print operator II-XII Norm as Tested, Abnormal Gait, Depressed Affect, Motor Weakness (generalized but lower extremities are very weak) Skin: Normal Color, Warm/Dry Lymphatic: No Adenopathy Results/Procedures Lab Laboratory Tests 08/18/22 06:00 Patient resulted labs reviewed. FIM Transfers Therapy Code Descriptions/Definitions Functional [place] Measure: 0=Not Assessed/NA 4=Minimal Assistance 1=Total Assistance 5=Supervision or Setup 2=Maximal Assistance 6=Modified [place] 3=Moderate Assistance 7=Complete IndependenceSCALE: Activities may be completed with or without assistive devices. 2-Ptcrnyuorn-neghgfe completes the activity by him/herself with no assistance from a helper. 5-Set-up or Clean-up Assistance-helper sets up or cleans up; patient completes activity. [place] assists only prior to or following the activity. 4-Supervision or Touching Assistance-helper provides verbal cues and/or touching/steadying and/or contact guard assistance as patient completes activity. Assistance may be provided throughout the activity or intermittently. 3-Partial/Moderate Assistance-helper does LESS THAN HALF the effort. [place] lifts, holds or supports trunk or limbs, but provides less than half the effort. 2-Substantial/Maximal Assistance-helper does MORE THAN HALF the effort. [place] lifts or holds trunk or limbs and provides more than half the effort. 5-Ajjmyfldq-jyhtgj does ALL the effort. Patient does none of the effort to complete the activity. Or, the assistance of 2 or more helpers is required for the patient to complete the activity. If activity was not attempted, code reason: 7-Patient Refused. 9-Not Applicable-not attempted and the patient did not perform the activity before the current illness, exacerbation or injury. 10-Not Attempted due to Environmental Limitations-(lack of equipment, weather restraints, etc.). 88-Not Attempted due to Medical Conditions or Safety Concerns. Roll Left to Right (QC): 6 Sit to Lying (QC): 6 Sit to Stand (QC): 4 Chair/Wcg-cl-Pudhc Xfer(QC): 4 Car Transfer (QC): 6 Gait Training Does the Patient Walk?: Yes Distance: 20' Walk 10 feet (QC): 4 Walk 50 ft with 2 Turns(QC): 4 Walk 150 ft (QC): 6 Walking 10ft/uneven surface-QC: 4 Gait Persons Needed: 1 Gait Assistive Device: FWW Wheelchair Training Does the Pt Use a Wheelchair?: No Wheel 50 ft with 2 turns (QC): 9 Wheel 150 ft (QC): 9 Type of Wheelchair: N/A Stair Training Stair Training: Handrails/: 2 handrails #of Steps: 4 1 Step (curb) (QC): 4 4 Steps (QC): 4 12 Steps (QC): 88 Stairs: Pattern: Reciprocal Balance Picking up an Object (QC): 4 (CGA using a electrical helper) ADL-Treatment Eating (QC): 6 Oral Hygiene (QC): 4 Shower/Bathe Self (QC): 4 Upper Body Dressing (QC): 5 Lower Body Dressing (QC): 4 On/Off Footwear (QC): 3 Toileting Hygiene (QC): 3 Toilet Transfer (QC): 4 Assessment/Plan Assessment and Plan Assess & Plan/Chief Complaint Assessment:: Debility following scoliosis correction surgery causing lumbar myelopathy per Dr Altamirano h/o long recovery following COVID-19 PNA 06/03/20 required [facility] admit after failing ARU Anemia s/p 1 unit of blood at [facility] Morbid obesity improved since last admit HTN HLP Developmental delay/autism s/p decubitus ulcers coccyx and left knee s/p debridement 08/16/20 Dr Santillan Tachycardia due to volume depletion Severe iron def Vit b12 def Plan: PT OT Pain control Home meds Monitor HR and BP 08/10/2022: Monitor closely Venofer B12 08/11/2022: Monitor closely Venofer 08/12/2022: Monitor closely Fall risk 08/13/2022: Add muscle relaxant 08/14/2022: DC accuchecks 08/15/2022: Monitor pain 08/16/2022: Monitor closely Pain control 08/17/2022: Monitor closely DC Friday08/18/2022: Remove miriam tomorrow (1) Lumbar myelopathy HEMANTH DODD DO Aug 18, 2022 15:25
[2022-08-18 19:05] VITALS: BP 118/65
[2022-08-18] MEDS: CYCLOBENZAPRINE 10 MG (FLEXERIL) TAB PO SCH (20:35)
--- NOTE | 2022-08-19 04:53 | Discharge Summary ---
Diagnosis/Chief Complaint Date of Admission Aug 09, 2022 at 12:45 Date of Discharge Discharge Date: Aug 19, 2022 Discharge Diagnosis Assessment:: Debility following scoliosis correction surgery causing lumbar myelopathy per Dr Altamirano h/o long recovery following COVID-19 PNA 06/03/20 required longterm admit after failing ARU Anemia s/p 1 unit of blood at [facility] Morbid obesity improved since last admit HTN HLP Developmental delay/autism s/p decubitus ulcers coccyx and left knee s/p debridement 08/16/20 Dr Santillan Tachycardia due to volume depletion Severe iron def Vit b12 def Plan: PT OT Pain control Home meds Monitor HR and BP 08/10/2022: Monitor closely Venofer B12 08/11/2022: Monitor closely Venofer 08/12/2022: Monitor closely Fall risk 08/13/2022: Add muscle relaxant 08/14/2022: DC accuchecks 08/15/2022: Monitor pain 08/16/2022: Monitor closely Pain control 08/17/2022: Monitor closely DC Friday08/18/2022: Remove miriam tomorrow Discharge Summary Discharge Physical Examination Allergies: Coded Allergies: No Known Drug Allergies (Unverified , 06/08/20) Vitals & I&Os Vital Signs Date Time Temp Pulse Resp B/P (MAP) Pulse Ox O2 Delivery O2 Flow Rate FiO2 08/19/22 14:28 35.9 100 18 124/83 98 Room Air General Appearance: Alert, Oriented X3, Cooperative Respiratory: Clear to Auscultation Cardiovascular: Regular Rate Psych/Mental Status: Mental Status NL Hospital Course Was the Problem List Reviewed?: Yes Uneventful course after he was admitted for slow recovery following extensive spine surgery at [facility] by Dr Altamirano. Labs remained stable. IV iron infusions initiated for severe iron deficiency. Pain was controlled. No falls or decompensation occurred and he was DC in improved condition. Labs (last 24 hrs) Laboratory Tests 08/09/22 16:26: Glucometer 166H 08/09/22 21:29: Glucometer 158H 08/10/22 05:24: Glucometer 150H, White Blood Count 7.3, Red Blood Count 2.74L, Hemoglobin 7.9L, Hematocrit 23L, Mean Corpuscular Volume 84, Mean Corpuscular Hemoglobin 29, Mean Corpuscular Hemoglobin Concent 34, Red Cell Distribution Width 13.3, Platelet Count 297, Mean Platelet Volume 9.3, Immature Granulocyte % (Auto) 0, Neutrophils (%) (Auto) 59, Lymphocytes (%) (Auto) 25, Monocytes (%) (Auto) 11, Eosinophils (%) (Auto) 5, Basophils (%) (Auto) 1, Neutrophils # (Auto) 4.3, Ly mphocytes # (Auto) 1.8, Monocytes # (Auto) 0.8, Eosinophils # (Auto) 0.3, Basophils # (Auto) 0.1, Immature Granulocyte # (Auto) 0.0, Sodium Level 140, Potassium Level 3.3L, Chloride Level 106, Carbon Dioxide Level 25, Anion Gap 9, Blood Urea Nitrogen 8, Creatinine 0.73, Estimat Glomerular Filtration Rate 121, BUN/Creatinine Ratio 11, Glucose Level 155H, Calcium Level 8.3L, Corrected Calcium 9.4, Iron Level 19L, Total Bilirubin 0.5, Aspartate Amino Transf (AST/SGOT) 52H, Alanine Aminotransferase (ALT/SGPT) 56H, Alkaline Phosphatase 77, Total Protein 5.0L, Albumin 2.6L, Vitamin B12 Level 348 08/10/22 11:11: Glucometer 150H 08/10/22 15:20: Glucometer 165H 08/10/22 20:17: Glucometer 162H 08/11/22 06:03: Glucometer 183H 08/11/22 10:36: Glucometer 153H 08/11/22 15:17: Glucometer 148H 08/11/22 20:10: Glucometer 139H 08/12/22 05:40: Glucometer 133H 08/12/22 06:18: White Blood Count 7.7, Red Blood Count 3.04L, Hemoglobin 8.8L, Hematocrit 26L, Mean Corpuscular Volume 86, Mean Corpuscular Hemoglobin 29, Mean Corpuscular Hemoglobin Concent 34, Red Cell Distribution Width 13.2, Platelet Count 347, Mean Platelet Volume 8.8L, Immature Granulocyte % (Auto) 1, Neutrophils (%) (Auto) 56, Lymphocytes (%) (Auto) 27, Monocytes (%) (Auto) 11, Eosinophils (%) (Auto) 4, Basophils (%) (Auto) 1, Neutrophils # (Auto) 4.3, Lymphocytes # (Auto) 2.1, Monocytes # (Auto) 0.9, Eosinophils # (Auto) 0.3, Basophils # (Auto) 0.0, Immature Granulocyte # (Auto) 0.1, Sodium Level 139, Potassium Level 3.9, Chloride Level 106, Carbon Dioxide Level 24, Anion Gap 9, Blood Urea Nitrogen 10, Creatinine 0.81, Estimat Glomerular Filtration Rate 117, BUN/Creatinine Ratio 12, Glucose Level 141H, Calcium Level 8.5, Corrected Calcium 9.5, Total Bilirubin 0.4, Aspartate Amino Transf (AST/SGOT) 51H, Alanine Aminotransferase (ALT/SGPT) 61H, Alkaline Phosphatase 99, Total Protein 5.2L, Albumin 2.8L 08/12/22 10:45: Glucometer 162H 08/12/22 16:26: Glucometer 136H 08/12/22 20:09: Glucometer 168H 08/13/22 05:12: Glucometer 128H 08/13/22 10:56: Glucometer 154H 08/13/22 15:56: Glucometer 142H 08/13/22 20:46: Glucometer 143H 08/14/22 05:57: Glucometer 137H 08/14/22 10:51: Glucometer 125H 08/14/22 16:07: Glucometer 127H 08/14/22 20:13: Glucometer 130H 08/15/22 15:16: Glucometer 150H 08/18/22 06:00: White Blood Count 10.7, Red Blood Count 3.57L, Hemoglobin 9.9L, Hematocrit 31L, Mean Corpuscular Volume 87, Mean Corpuscular Hemoglobin 28, Mean Corpuscular Hemoglobin Concent 32, Red Cell Distribution Width 13.2, Platelet Count 533H, Mean Platelet Volume 8.4L, Immature Granulocyte % (Auto) 1, Neutrophils (%) (Auto) 64, Lymphocytes (%) (Auto) 22, Monocytes (%) (Auto) 9, Eosinophils (%) (Auto) 3, Basophils (%) (Auto) 1, Neutrophils # (Auto) 6.9, Lymphocytes # (Auto) 2.4, Monocytes # (Auto) 1.0, Eosinophils # (Auto) 0.3, Basophils # (Auto) 0.1, Immature Granulocyte # (Auto) 0.1, Sodium Level 139, Potassium Level 4.0, Chloride Level 106, Carbon Dioxide Level 22, Anion Gap 11, Blood Urea Nitrogen 13, Creatinine 0.76, Estimat Glomerular Filtration Rate 119, BUN/Creatinine Ratio 17, Glucose Level 118H, Calcium Level 9.1, Corrected Calcium 9.7, Total Bilirubin 0.3, Aspartate Amino Transf (AST/SGOT) 22, Alanine Aminotransferase (ALT/SGPT) 37, Alkaline Phosphatase 133, Total Protein 6.5, Albumin 3.3 Pending Labs Laboratory Tests 08/09/22 16:26: Glucometer 166 08/09/22 21:29: Glucometer 158 08/10/22 05:24: Glucometer 150, White Blood Count 7.3, Red Blood Count 2.74, Hemoglobin 7.9, Hematocrit 23, Mean Corpuscular Volume 84, Mean Corpuscular Hemoglobin 29, Mean Corpuscular Hemoglobin Concent 34, Red Cell Distribution Width 13.3, Platelet Count 297, Mean Platelet Volume 9.3, Immature Granulocyte % (Auto) 0, Neutrophils (%) (Auto) 59, Lymphocytes (%) (Auto) 25, Monocytes (%) (Auto) 11, Eosinophils (%) (Auto) 5, Basophils (%) (Auto) 1, Neutrophils # (Auto) 4.3, Lymphocytes # (Auto) 1.8, Monocytes # (Auto) 0.8, Eosinophils # (Auto) 0.3, Basophils # (Auto) 0.1, Immature Granulocyte # (Auto) 0.0, Sodium Level 140, Potassium Level 3.3, Chloride Level 106, Carbon Dioxide Level 25, Anion Gap 9, Blood Urea Nitrogen 8, Creatinine 0.73, Estimat Glomerular Filtration Rate 121, BUN/Creatinine Ratio 11, Glucose Level 155, Calcium Level 8.3, Corrected Calcium 9.4, Iron Level 19, Total Bilirubin 0.5, Aspartate Amino Transf (AST/SGOT) 52, Alanine Aminotransferase (ALT/SGPT) 56, Alkaline Phosphatase 77, Total Protein 5.0, Albumin 2.6, Vitamin B12 Level 348 08/10/22 11:11: Glucometer 150 08/10/22 15:20: Glucometer 165 08/10/22 20:17: Glucometer 162 08/11/22 06:03: Glucometer 183 08/11/22 10:36: Glucometer 153 08/11/22 15:17: Glucometer 148 08/11/22 20:10: Glucometer 139 08/12/22 05:40: Glucometer 133 08/12/22 06:18: White Blood Count 7.7, Red Blood Count 3.04, Hemoglobin 8.8, Hematocrit 26, Mean Corpuscular Volume 86, Mean Corpuscular Hemoglobin 29, Mean Corpuscular Hemoglobin Concent 34, Red Cell Distribution Width 13.2, Platelet Count 347, Mean Platelet Volume 8.8, Immature Granulocyte % (Auto) 1, Neutrophils (%) (A uto) 56, Lymphocytes (%) (Auto) 27, Monocytes (%) (Auto) 11, Eosinophils (%) (Auto) 4, Basophils (%) (Auto) 1, Neutrophils # (Auto) 4.3, Lymphocytes # (Auto) 2.1, Monocytes # (Auto) 0.9, Eosinophils # (Auto) 0.3, Basophils # (Auto) 0.0, Immature Granulocyte # (Auto) 0.1, Sodium Level 139, Potassium Level 3.9, Chloride Level 106, Carbon Dioxide Level 24, Anion Gap 9, Blood Urea Nitrogen 10, Creatinine 0.81, Estimat Glomerular Filtration Rate 117, BUN/Creatinine Ratio 12, Glucose Level 141, Calcium Level 8.5, Corrected Calcium 9.5, Total Bilirubin 0.4, Aspartate Amino Transf (AST/SGOT) 51, Alanine Aminotransferase (ALT/SGPT) 61, Alkaline Phosphatase 99, Total Protein 5.2, Albumin 2.8 08/12/22 10:45: Glucometer 162 08/12/22 16:26: Glucometer 136 08/12/22 20:09: Glucometer 168 08/13/22 05:12: Glucometer 128 08/13/22 10:56: Glucometer 154 08/13/22 15:56: Glucometer 142 08/13/22 20:46: Glucometer 143 08/14/22 05:57: Glucometer 137 08/14/22 10:51: Glucometer 125 08/14/22 16:07: Glucometer 127 08/14/22 20:13: Glucometer 130 08/15/22 15:16: Glucometer 150 08/18/22 06:00: White Blood Count 10.7, Red Blood Count 3.57, Hemoglobin 9.9, Hematocrit 31, Mean Corpuscular Volume 87, Mean Corpuscular Hemoglobin 28, Mean Corpuscular Hemoglobin Concent 32, Red Cell Distribution Width 13.2, Platelet Count 533, Mean Platelet Volume 8.4, Immature Granulocyte % (Auto) 1, Neutrophils (%) (Auto) 64, Lymphocytes (%) (Auto) 22, Monocytes (%) (Auto) 9, Eosinophils (%) (Auto) 3, Basophils (%) (Auto) 1, Neutrophils # (Auto) 6.9, Lymphocytes # (Auto) 2.4, Monocytes # (Auto) 1.0, Eosinophils # (Auto) 0.3, Basophils # (Auto) 0.1, Immature Granulocyte # (Auto) 0.1, Sodium Level 139, Potassium Level 4.0, Chloride Level 106, Carbon Dioxide Level 22, Anion Gap 11, Blood Urea Nitrogen 13, Creatinine 0.76, Estimat Glomerular Filtration Rate 119, BUN/Creatinine Ratio 17, Glucose Level 118, Calcium Level 9.1, Corrected Calcium 9.7, Total Bilirubin 0.3, Aspartate Amino Transf (AST/SGOT) 22, Alanine Aminotransferase (ALT/SGPT) 37, Alkaline Phosphatase 133, Total Protein 6.5, Albumin 3.3 Discharge Home Medications: Active Scripts Active Vitamin B-12 (Cyanocobalamin (Vitamin B-12)) 1,000 Mcg Tablet 1,000 Mcg PO DAILY@0700 HYDROcodone/APAP 10/325 TABLET (Acetaminophen/Hydrocodone Bitart) 1 Ea Tab 1 Ea PO Q4H PRN Cyclobenzaprine HCl 10 Mg Tablet 10 Mg PO HS Reported Rybelsus (Semaglutide) 7 Mg Tablet 7 Mg PO DAILY Pregabalin 75 Mg Capsule 75 Mg PO BID Omeprazole 20 Mg Capsule.dr 20 Mg PO DAILY Multivitamin 1 Each Tablet 1 Each PO DAILY Metformin HCl 1,000 Mg Tablet 1,000 Mg PO BID WITH MEALS Loratadine 10 Mg Tablet 10 Mg PO DAILY Atorvastatin Calcium 40 Mg Tablet 40 Mg PO HS Rexulti (Brexpiprazole) 0.5 Mg Tablet 0.5 Mg PO DAILY Metoprolol Tartrate 50 Mg Tablet 50 Mg PO BID WITH MEALS Duloxetine HCl 60 Mg Capsule.dr 120 Mg PO DAILY TAKES 2 (60MG) CAPS Instructions to patient/family Please see electronic discharge instructions given to patient. Diagnosis/Problems Diagnosis/Problems (1) Lumbar myelopathy HEMANTH DODD DO Aug 19, 2022 04:53
[2022-08-19] MEDS: SEMAGLUTIDE PO SCH (06:08)
[2022-08-19] MEDS: CYANOCOBALAMIN 1,000 MCG (VITAMIN B-12) TABLET PO SCH (06:09)
[2022-08-19] MEDS: CATHETER FLUSH 10 ML SYR IVP SCH (06:09)
[2022-08-19] MEDS: KCL 10 MEQ TAB (MICRO K) PO SCH (06:09)
[2022-08-19] MEDS: MULTIVIT W/MINERALS TAB (THERAGRAN M) PO SCH (06:09)
[2022-08-19 07:43] VITALS: BP 124/83
--- NOTE | 2022-08-19 07:48 | Occupational Ther Daily Note ---
OT Current Status-Daily Note Subjective Pt alert, sitting on EOB. Pt agrees to therapy. Pt to discharge home today with HHC and parents. No c/o pain. Mental Status/Objective Patient Orientation: Person, Place, Time, Situation Attachments: IV ADL-Treatment Pt agrees to shower. Pt given clothes from closet to choose from. Pt ambulates to bathroom and transfers into/out of shower with SBA for safety using FWW. Pt has toilet tongs to complete toilet hygiene (buttocks) and SBA for clothing manipulation for safety. Pt stands at sink to complete oral care independently. Independent with eating. Sitting 100% of the time, pt completes shower indepen dently. Set up for upper body dressing including TLSO. Set up for footwear using AE. AE for lower body dressing SBA for safety. After session, pt sitting in recliner with call light/phone in reach. All needs met in room. Therapy Code Descriptions/Definitions Functional [place] Measure: 0=Not Assessed/NA 4=Minimal Assistance 1=Total Assistance 5=Supervision or Setup 2=Maximal Assistance 6=Modified [place] 3=Moderate Assistance 7=Complete IndependenceSCALE: Activities may be completed with or without assistive devices. 6-Gsrjqoxecj-orzutea completes the activity by him/herself with no assistance from a helper. 5-Set-up or Clean-up Assistance-helper sets up or cleans up; patient completes activity. [place] assists only prior to or following the activity. 4-Supervision or Touching Assistance-helper provides verbal cues and/or touching/steadying and/or contact guard assistance as patient completes activity. Assistance may be provided throughout the activity or intermittently. 3-Partial/Moderate Assistance-helper does LESS THAN HALF the effort. [place] lifts, holds or supports trunk or limbs, but provides less than half the effort. 2-Substantial/Maximal Assistance-helper does MORE THAN HALF the effort. [place] lifts or holds trunk or limbs and provides more than half the effort. 0-Plvvulbvj-pokfqg does ALL the effort. Patient does none of the effort to complete the activity. Or, the assistance of 2 or more helpers is required for the patient to complete the activity. If activity was not attempted, code reason: 7-Patient Refused. 9-Not Applicable-not attempted and the patient did not perform the activity before the current illness, exacerbation or injury. 10-Not Attempted due to Environmental Limitations-(lack of equipment, weather restraints, etc.). 88-Not Attempted due to Medical Conditions or Safety Concerns. Eating (QC): 6 Oral Hygiene (QC): 6 Shower/Bathe Self (QC): 6 Upper Body Dressing (QC): 5 Lower Body Dressing (QC): 4 On/Off Footwear: 5 Toileting Hygiene (QC): 4 Toilet Transfer (QC): 4 BIMS CAM BIMS Expression of Ideas and Wants: Without Difficulty Understanding Verbal Content: Understands Brief Interview/Mental Status: Yes IRF ZENON BIMS: IRF ZENON BIMS Response (Comments) Value Repitition of Three Words Three 3 Recalls Socks Yes, No Cue Required 2 Recalls Blue Yes, No Cue Required 2 Recalls Bed Yes, No Cue Required 2 Year Correct 3 Month Accurate Within 5 Days 2 Day Correct 1 Total 15 Patient Normally Able to Recal: Current Session, Location of own room, Staff Names and faces, That he/she in a hsp Should Staff Asses. Mental St.: No CAM Mental Status Change/Baseline: 0 Inattention: 0 Disorganized thinkin Altered level of consciousness: 0 OT Short Term Goals Short Term Goals Time Frame: Aug 23, 2022 Shower/bathe self: 4 Upper body dressin Lower body dressin Putting on/taking off footwear: 4 OT Leaded Glass Installer Goals Shelter Goals Time Frame: Sep 06, 2022 Acute change in mental status: 0 Inattention: 0 Disorganized thinkin Altered level of consciousness: 0 Eating (QC): 6 (MET) Oral Hygiene (QC): 6 (MET) Toileting Hygiene (QC): 6 (NOT MET) Shower/Bathe Self (QC): 6 (MET) Upper Body Dressing (QC): 6 (NOT MET) Lower Body Dressing (QC): 6 (NOT MET) On/Off Footwear (QC): 6 (NOT MET) Additional Goals: 1-Demonstrate ADL Tasks, 2-Verbalize Understanding, 3- ImproveStrength/Héctor 1=Demonstrate adherence to instructed precautions during ADL tasks. 2=Patient will verbalize/demonstrate understanding of assistive devices/modifications for ADL. 3=Patient will improve strength/tolerance for activity to enable patient to perform ADL's. OT Education/Plan Problem List/Assessment Assessment: Decreased Activ Tolerance, Impaired Self-Care Skills Discharge Recommendations Plan/Recommendations: Discharge/Goals Met (Home with parents) Treatment Plan/Plan of Care Patient would benefit from OT for education, treatment and training to promote independence in ADL's, mobility, safety and/or upper extremity function for ADL's. Plan of Care: ADL Retraining, Functional Mobility, Group Exercise/Act as Ind, UE Funct Exercise/Act Treatment Duration: Sep 06, 2022 Frequency: At least 5 of 7 days/Wk (IRF) Estimated Hrs Per Day: 1.5 hours per day Agreement: Yes Rehab Potential: Fair Time Start Time: 07:15 Stop Time: 08:10 DATE: Aug 19, 2022 Total Time Billed (hr/min): 55 Billed Treatment Time 1 visit-ADL 4 (55 min) JAS GARCIA Aug 19, 2022 07:47
--- NOTE | 2022-08-19 08:23 | Speech Therapy Progress Note ---
Therapy Progress Note Skilled ST services were not requested throughout the patient's acute rehabilitation stay. Please re-consult speech pathology if concerns arise. Thank you. JUDE CAMPOS Aug 19, 2022 08:23
[2022-08-19] MEDS: DULoxetine 30 MG (CYMBALTA) CAP PO SCH (08:47)
[2022-08-19] MEDS: PANTOPRAZOLE 20 MG TABLET (PROTONIX) PO SCH (08:47)
[2022-08-19] MEDS: PREGABALIN 75 MG (LYRICA) CAP PO SCH (08:47)
[2022-08-19] MEDS: meTOprolol TARTRATE 50 MG (LOPRESSOR) TAB PO SCH (08:48)
[2022-08-19] MEDS: metFORMIN 500 MG (GLUCOPHAGE) TAB PO SCH (08:48)
[2022-08-19] MEDS: LORATADINE (CLARITIN) 10 MG TAB PO SCH (08:48)
[2022-08-19] MEDS: DOCUSATE SODIUM 100 MG (COLACE) CAP PO SCH (08:53)
[2022-08-19] MEDS: SENNA W/DOCUSATE (SENOKOT S) TABLET PO SCH (08:53)
[2022-08-19] MEDS: polyethylene glycoL POWDER 17 GM (MIRALAX) PACK PO SCH (08:53)
[2022-08-19] MEDS: REXULTI 0.5 MG PO SCH (08:53)
[2022-08-19] MEDS: ENOXAPARIN 40 MG/0.4 ML (LOVENOX) SYR SC SCH (08:55)
--- NOTE | 2022-08-19 11:26 | Physical Therapy Daily Note ---
PT Daily Note-Current Subjective Pt sitting in recliner upon arrival. Pt agrees to PT for QC scoring items for d/c today. Pain Location: No Pain Reported Section J - Health Conditions 1. Rarely or not at all 2. Occasionally 3. Frequently 4. Almost constantly 8. Unable to answer Pain Effect on Sleep: 2 Pain Interference with Therapy: 2 Pain Interference w/Day-to-Day: 2 Mental Status Patient Orientation: Person, Place, Time, Situation Attachments: Other-See Comments (TLSO) Transfers SCALE: Activities may be completed with or without assistive devices. 3-Xufvdmmusw-shllzss completes the activity by him/herself with no assistance from a helper. 5-Set-up or Clean-up Assistance-helper sets up or cleans up; patient completes activity. [place] assists only prior to or following the activity. 4-Supervision or Touching Assistance-helper provides verbal cues and/or touching/steadying and/or contact guard assistance as patient completes activity. Assistance may be provided throughout the activity or intermittently. 3-Partial/Moderate Assistance-helper does LESS THAN HALF the effort. [place] lifts, holds or supports trunk or limbs, but provides less than half the effort. 2-Substantial/Maximal Assistance-helper does MORE THAN HALF the effort. [place] lifts or holds trunk or limbs and provides more than half the effort. 1-Xcrpxxncs-lrgpxy does ALL the effort. Patient does none of the effort to complete the activity. Or, the assistance of 2 or more helpers is required for the patient to complete the activity. If activity was not attempted, code reason: 7-Patient Refused. 9-Not Applicable-not attempted and the patient did not perform the activity before the current illness, exacerbation or injury. 10-Not Attempted due to Environmental Limitations-(lack of equipment, weather restraints, etc.). 88-Not Attempted due to Medical Conditions or Safety Concerns. Roll Left & Right (QC): 6 Sit to Lying (QC): 6 Lying to Sitting/Side of Bed(Q: 6 Sit to Stand (QC): 6 Chair/Ldo-cp-Npgqp Xfer(QC): 6 Toilet Transfer (QC): 6 Car Transfer (QC): 6 Weight Bearing Full Weight Bearing Full Weight Bearing back precautions Gait Training Does the Patient Walk?: Yes Distance: 200' Walk 10 feet (QC): 6 Walk 50 ft with 2 Turns(QC): 6 Walk 150 ft (QC): 6 Walking 10ft/uneven surface-QC: 6 Gait Assistive Device: FWW Wheelchair Training Does the Pt Use a Wheelchair?: No Stair Training Stair Training: Handrails/: 2 handrails #of Steps: 6 1 Step (curb) (QC): 5 4 Steps (QC): 5 12 Steps (QC): 88 Stairs: Pattern: Step to Balance Picking up an Object (QC): 88 Special Test Comments Pt has Back Precautions. Treatments Pt completes QC Scoring items listed above then returns to room to rest EOB for Nurse to check back incision. BACK WINDER assists pt with gathering pt belongings as pt requests. All needs met, call light next to pt. Assessment Current Status: Good Progress Pt susana. tx well. PT Iron Piler Goals Iron Piler Goals PT Mcfp Goals Time Frame: Aug 23, 2022 Roll Left & Right (QC): 6 Sit to Lying (QC): 4 Lying-Sitting on Side/Bed(QC): 4 Sit to Stand (QC): 4 Chair/Asb-ed-Oldhu Xfer(QC): 4 Toilet Transfer (QC): 4 Car Transfer (QC): 4 Does the Patient Walk: Yes Walk 10 feet (QC): 4 Walk 50ft with 2 Turns (QC): 4 Walk 150 ft (QC): 4 Walking 10ft on Uneven Surface: 4 1 Step (curb) (QC): 4 4 Steps (QC): 4 12 Steps (QC): 88 Picking up an Object (QC): 4 Wheel 50 feet with 2 turns (QC: 9 Wheel 150 feet: 9 PT Plan Treatment/Plan Treatment Plan: Continue Plan of Care Treatment Plan: Bed Mobility, Education, Functional Activity Héctor, Functional Strength, Group Therapy, Gait, Safety, Therapeutic Exercise, Transfers Treatment Duration: Aug 23, 2022 Frequency: At least 5 of 7 days/Wk (IRF) Estimated Hrs Per Day: 1.5 hours per day Patient and/or Family Agrees t: Yes Time Time In: 900 Time Out: 1000 DATE: Aug 19, 2022 Total Billed Treatment Time: 60 Total Billed Treatment 1, FA x4 (60m) AUBREE ÁLVAREZ BACK WINDER Aug 19, 2022 11:26
--- NOTE | 2022-08-19 11:51 | Therapy Team Discharge Summary ---
Therapy Discharge Summary Discharge Recommendations Date of Discharge Physical Therapy Patient came to rehab s/p T9-pelvis PSF. Upon evaluation patient performed rolling with SBA, supine <-> sit with min assist, sit <-> stand min assist, transfers and car transfer CGA, ambulate 100' with a rolling walker with CGA ( including 50' with at least 2 turns of 90 degrees and 10' over an uneven surface), up and down 1 step using a rolling walker with CGA, and picked up an object from the floor using a group product manager with CGA. Patient has been performing bed mobility and transfer training, balance and endurance training, functional strengthening, stair training, gait training, and education. Patient has made good progress and has met all of his roasterman goals except for picking up an object from the floor (due to back precautions). Now, patient performs rolling and supine <-> sit with independence, sit <-> stand and transfers independent, car transfer independent, ambulates 200' with a rolling walker with independence (including 50' with at least 2 turns of 90 degrees and 10' over an uneven surface), can go up and down 6 steps using 2 handrails with SBA. Patient has been discharged from this facility and will be discharged from PT at this time. Roll Left to Right (QC): 6 Sit to Lying (QC): 6 Lying to Sitting/Side of Bed(Q: 6 Sit to Stand (QC): 6 Chair/Bpg-et-Xtmul Xfer(QC): 6 Toilet Transfer (QC): 6 Car Transfer (QC): 6 Does the Patient Walk: Yes Mode of Locomotion: Walk Anticipated Mode of Locomotion: Walk Walk 10 feet (QC): 6 Walk 50 ft with 2 Turns(QC): 6 Walk 150 ft (QC): 6 Walking 10ft on uneven surface: 6 Distance: 100'x2 Gait Assistive Device: FWW Does the Pt Use a Wheelchair: No Wheel 50 ft with 2 turns (QC): 9 Wheel 150 ft (QC): 9 Type of Wheelchair: N/A #of Steps: 6 1 Step (curb) (QC): 5 4 Steps (QC): 5 12 Steps (QC): 88 Walking Assistive Device: Walker Balance Sitting Static: Normal Balance Sitting Dynamic: Normal Balance-Standing Static: Fair Picking up an Object (QC): 88 Occupational Therapy Decreased Activ Tolerance, Impaired Self-Care Skills Eating (QC): 6 Oral Hygiene (QC): 6 Shower/Bathe Self (QC): 6 Upper Body Dressing (QC): 5 Lower Body Dressing (QC): 4 On/Off Footwear (QC): 5 Toileting Hygiene (QC): 4 PT Intermediate Goals Honing Machine Operator Production Goals PT Intermediate Goals Time Frame: Aug 23, 2022 Roll Left to Right (QC): 6 Sit to Lying (QC): 4 Lying-Sitting on Side/Bed(QC): 4 Sit to Stand (QC): 4 Chair/Mjd-cy-Uaizs Xfer(QC): 4 Toilet/Commode Transfer (QC): 4 Car Transfer (QC): 4 Does the Patient Walk: Yes Walk 10 feet (QC): 4 Walk 10ft-Uneven Surface(QC): 4 Walk 50ft with 2 Turns (QC): 4 Walk 150 ft (QC): 4 Wheel 50 feet with 2 turns (QC: 9 Wheel 150 feet: 9 1 Step (curb) (QC): 4 4 Steps (QC): 4 12 Steps (QC): 88 Picking up an Object (QC): 4 OT Intermediate Goals Honing Machine Operator Production Goals Time Frame: Sep 06, 2022 Acute change in mental status: 0 Inattention: 0 Disorganized thinkin Altered level of consciousness: 0 Eating (QC): 6 (MET) Oral Hygiene (QC): 6 (MET) Toileting Hygiene (QC): 6 (NOT MET) Shower/Bathe Self (QC): 6 (MET) Upper Body Dressing (QC): 6 (NOT MET) Lower Body Dressing (QC): 6 (NOT MET) On/Off Footwear (QC): 6 (NOT MET) Additional Goals: 1-Demonstrate ADL Tasks, 2-Verbalize Understanding, 3- ImproveStrength/Héctor 1=Demonstrate adherence to instructed precautions during ADL tasks. 2=Patient will verbalize/demonstrate understanding of assistive devices/modifications for ADL. 3=Patient will improve strength/tolerance for activity to enable patient to perform ADL's. LYNDSAY PERRY PT Aug 19, 2022 11:50
--- NOTE | 2022-08-19 13:55 | Therapy Team Discharge Summary ---
Therapy Discharge Summary Discharge Recommendations Date of Discharge Physical Therapy Roll Left to Right (QC): 6 Sit to Lying (QC): 6 Lying to Sitting/Side of Bed(Q: 6 Sit to Stand (QC): 6 Chair/Fho-oi-Htlpr Xfer(QC): 6 Toilet Transfer (QC): 6 Car Transfer (QC): 6 Does the Patient Walk: Yes Mode of Locomotion: Walk Anticipated Mode of Locomotion: Walk Walk 10 feet (QC): 6 Walk 50 ft with 2 Turns(QC): 6 Walk 150 ft (QC): 6 Walking 10ft on uneven surface: 6 Distance: 100'x2 Gait Assistive Device: FWW Does the Pt Use a Wheelchair: No Wheel 50 ft with 2 turns (QC): 9 Wheel 150 ft (QC): 9 Type of Wheelchair: N/A #of Steps: 6 1 Step (curb) (QC): 5 4 Steps (QC): 5 12 Steps (QC): 88 Walking Assistive Device: Walker Balance Sitting Static: Normal Balance Sitting Dynamic: Normal Balance-Standing Static: Fair Picking up an Object (QC): 88 Occupational Therapy Pt admitted to [facility] s/p T9-Pelvis PSF. At [facility], pt was independent with ADLS and functional mobility using QC. Upon initial evaluation, pt was independent with eating, required supervision with oral care, and min-mod A with showering, UE Dressing, LE Dressing, footwear and toileting. OT Tx focused on increasing BUE strength and activity tolerance and increasing independence and safety with ADLs and functional mobility. Pt made functional progress towards goals, attaining IND level with eating, oral care and showering. Pt did not attain LTGs for other ADLS. Pt discharged home with family support, d/c from OT. Decreased Activ Tolerance, Impaired Self-Care Skills Eating (QC): 6 Oral Hygiene (QC): 6 Shower/Bathe Self (QC): 6 Upper Body Dressing (QC): 5 Lower Body Dressing (QC): 4 On/Off Footwear (QC): 5 Toileting Hygiene (QC): 4 PT Pole Shaver Goals Mcfp Goals PT Pole Shaver Goals Time Frame: Aug 23, 2022 Roll Left to Right (QC): 6 Sit to Lying (QC): 4 Lying-Sitting on Side/Bed(QC): 4 Sit to Stand (QC): 4 Chair/Yas-gg-Ecbem Xfer(QC): 4 Toilet/Commode Transfer (QC): 4 Car Transfer (QC): 4 Does the Patient Walk: Yes Walk 10 feet (QC): 4 Walk 10ft-Uneven Surface(QC): 4 Walk 50ft with 2 Turns (QC): 4 Walk 150 ft (QC): 4 Wheel 50 feet with 2 turns (QC: 9 Wheel 150 feet: 9 1 Step (curb) (QC): 4 4 Steps (QC): 4 12 Steps (QC): 88 Picking up an Object (QC): 4 OT Pole Shaver Goals Mcfp Goals Time Frame: Sep 06, 2022 Acute change in mental status: 0 Inattention: 0 Disorganized thinkin Altered level of consciousness: 0 Eating (QC): 6 (MET) Oral Hygiene (QC): 6 (MET) Toileting Hygiene (QC): 6 (NOT MET) Shower/Bathe Self (QC): 6 (MET) Upper Body Dressing (QC): 6 (NOT MET) Lower Body Dressing (QC): 6 (NOT MET) On/Off Footwear (QC): 6 (NOT MET) Additional Goals: 1-Demonstrate ADL Tasks, 2-Verbalize Understanding, 3- ImproveStrength/Héctor 1=Demonstrate adherence to instructed precautions during ADL tasks. 2=Patient will verbalize/demonstrate understanding of assistive devices/ modifications for ADL. 3=Patient will improve strength/tolerance for activity to enable patient to perform ADL's. LIZZETTE CHU OT Aug 19, 2022 13:55
[2022-08-19 14:28] VITALS: BP 124/83
== END 2022-08-19 10:40 | disposition home health service (06) | DRG 92 ==
PROVIDERS: ADMIT Internal Medicine; ATTEND Internal Medicine
DX: G95.89 Other specified diseases of spinal cord (principal); F84.0 Autistic disorder; Z47.89 Encounter for other orthopedic aftercare; Z98.1 Arthrodesis status; R53.81 Other malaise; R53.1 Weakness; R26.9 Unspecified abnormalities of gait and mobility; G47.33 Obstructive sleep apnea (adult) (pediatric); E78.00 Pure hypercholesterolemia, unspecified; I10 Essential (primary) hypertension; M21.372 Foot drop, left foot; M21.371 Foot drop, right foot; E11.9 Type 2 diabetes mellitus without complications; F32.A Depression, unspecified; E66.01 Morbid (severe) obesity due to excess calories; Z68.37 Body mass index [BMI] 37.0-37.9, adult; D50.9 Iron deficiency anemia, unspecified; D51.9 Vitamin B12 deficiency anemia, unspecified; E86.9 Volume depletion, unspecified; Z86.16 Personal history of COVID-19; Z79.84 Long term (current) use of oral hypoglycemic drugs; Z79.899 Other long term (current) drug therapy
CPT/HCPCS: 36415; 80053; 82607; 82947; 83540; 85025

== ENCOUNTER → 2022-12-27 | Outpatient (CLI) | payer MEDICARE, MEDICAID ==
[~2022-12-27] MED LIST changes: +ACHYD1T PO; +ATOR40TA70 PO; +CYAN-41 PO; +CYCL10TA25 PO; +LORA10TA7 PO; +METF-399 PO; +OMEP20CA18 PO; +PREG75CA75 PO; -ROSU20TA32 PO; +ROSU20TA73 PO; +SEMA7TAB2 PO
--- NOTE | 2022-12-27 13:45 | Diagnostic Imaging Report ---
Indication: Dysphasia. 0.4 minutes of fluoroscopy time were utilized. Videofluoroscopy records swallowing of varying consistencies of barium in conjunction with speech pathology. FINDINGS: All swallowed consistencies were done so normally. No aspiration, airway penetration or pathological residuals. IMPRESSION: Normal video swallowing motion series. Please see speech pathology report for any additional findings as well as any recommendations. Dictated by: Dictated on workstation # [id number]
== END ==
LOC: RAD 09:49
PROVIDERS: ATTEND Pediatrics
DX: R13.19 Other dysphagia (principal); B94.8 Sequelae of other specified infectious and parasitic diseases
CPT/HCPCS: 74230

== ENCOUNTER → 2022-12-31 | Outpatient (CLI) | payer MEDICARE, MEDICAID | LOC: CARD 13:24 | PROVIDERS: ATTEND Pediatrics | DX: R00.0 Tachycardia, unspecified (principal) | CPT/HCPCS: 93225; 93226 ==

== ENCOUNTER → 2023-01-02 | Day surgery (SDC) | payer MEDICARE, MEDICAID ==
[~2023-01-02] VITALS: Ht 182.9 cm; Wt 131.3 kg
[~2023-01-02] MED LIST changes: +LIDOCAINE 1% INJ 10 ML VIAL INJ ONE
--- NOTE | 2023-01-02 13:50 | Diagnostic Imaging Report ---
INDICATION: Enlarging right lobe thyroid nodule. Patient presents for ultrasound guided fine-needle aspiration. Patient brought to the procedure room and placed on table supine position. Ultrasound imaging of the right neck was performed to evaluate appropriate entry site. The neck was prepped and draped in usual sterile fashion. Small amount 1% lidocaine was utilized for local anesthesia. A total of 4 passes were made into the dominant solid nodule in the mid upper pole right lobe of the thyroid utilizing 25-gauge needles and fine-needle aspiration technique. Hemostasis was obtained. Patient tolerated procedure well. IMPRESSION: Successful ultrasound guided fine needle aspiration of the dominant solid nodule in the mid upper pole right lobe of the thyroid. Pathology results are currently pending. Dictated by: Dictated on workstation # [id number]
--- NOTE | 2023-01-02 13:51 | Diagnostic Imaging Report ---
INDICATION: Enlarging left lobe thyroid nodule. Patient presents for ultrasound-guided fine needle aspiration. FINDINGS: Patient was brought to the procedure room, placed on table in the supine position. Ultrasound imaging of the left neck was performed to evaluate appropriate entry site. The neck was prepped and draped in the usual sterile fashion. A small amount of 1% lidocaine was utilized for local anesthesia. A total of four passes were made into the dominant solid nodule in the left lobe of the thyroid utilizing 25-gauge needles and fine-needle aspiration technique. Hemostasis was obtained. Patient tolerated the procedure well and left the department in stable condition. IMPRESSION: Successful ultrasound-guided fine-needle aspiration of the dominant solid nodule of the left lobe of the thyroid. Pathology results are currently pending. Dictated by: Dictated on workstation # [id number]
== END ==
LOC: RAD 12:45
PROVIDERS: ATTEND Pediatrics
DX: E04.1 Nontoxic single thyroid nodule (principal)
CPT/HCPCS: 10006; 76942; 88173; 88305

== ENCOUNTER → 2023-03-17 | Outpatient (CLI) | payer MEDICARE, MEDICAID ==
[~2023-03-17] MED LIST changes: -LIDOCAINE 1% INJ 10 ML VIAL INJ ONE; -PREG75CA75 PO; +PREG75CA76 PO
== END ==
LOC: CANPRECLI → CARD 14:30
PROVIDERS: ATTEND Internal Medicine Cardiovascular Disease
DX: I51.7 Cardiomegaly (principal)
CPT/HCPCS: 93306